=== PATIENT | female | born 1940 | race Caucasian/White ===

== ENCOUNTER 2019-11-15 09:41 | Outpatient (CLI) | payer MEDICARE, BC, SELFPAY ==
[2019-11-15 10:17] LABS: Basophils Percent Auto 0.4 % (0.2-1.2); Eosinophils Absolute Auto 0.3 K/mm3 (0-0.3); Eosinophils Percent Auto 3.7 % (0-4.4); Hematocrit 35.2 % (37.0-47.0); Hemoglobin 11.6 g/dL (12.0-15.0); Immature Granulocyte Absolute 0.03 K/mm3 (0.00-0.031); Immature Granulocyte Percent A 0.4 % (0-0.5); Lymphocytes Absolute Auto 1.01 K/mm3 (0.9-3.2); Lymphocytes Percent Auto 14.2 % (18.3-44.2); Mean Corpuscular Hemoglobin 31.4 pg (26-34); Mean Corpuscular Volume 95.4 fl (80-100); Mean Platelet Volume 10.1 fl (7.4-10.4); Monocytes Absolute Auto 0.5 K/mm3 (0.1-0.6); Monocytes Percent Auto 7.3 % (2.6-8.5); Neutrophils Absolute Auto 5.3 K/mm3 (1.3-6.7); Platelet Count Result 202 k/mm3 (150-375); Red Blood Count 3.69 M/mm3 (4.2-5.4); Red Cell Distribution Width 13.3 % (11.5-14.5); White Blood Count 7.1 K/mm3 (4.5-10.0)
[2019-11-15 10:28] LABS: Hemoglobin A1C 5.8 % (<5.7)
[2019-11-15 10:31] LABS: Blood Urea Nitrogen 23 mg/dL (7-17); Calcium 9.2 mg/dL (8.4-10.2); Carbon Dioxide 30 mmol/L (22-30); Chloride 94 mmol/L (98-107); Cholesterol 93 mg/dL (0-200); Estimated Glomerular Filt Rate 36; Glucose 84 mg/dL (65-105); HDL Direct 38 mg/dL; Potassium 4.4 mmol/L (3.4-5.0); Sodium 137 mmol/L (137-145); Triglycerides 166 mg/dL (<150)
[2019-11-15 10:42] LABS: LDL Cholesterol Direct 35 mg/dL
[2019-11-15 11:31] LABS: Free T4 Free Thyroxine 1.43 ng/mL (0.78-2.19)
== END 2019-11-15 09:42 | disposition home or self-care (01) ==
PROVIDERS: PCP Internal Medicine; Visit Provider Internal Medicine
DX: I10 Essential (primary) hypertension (principal); E11.9 Type 2 diabetes mellitus without complications; E78.2 Mixed hyperlipidemia; E03.9 Hypothyroidism, unspecified
CPT/HCPCS: 36415; 80048; 80061; 82542; 83036; 84439; 84443; 85025

== ENCOUNTER 2019-11-24 12:14 | Outpatient (CLI) | payer MEDICARE, BC, SELFPAY ==
--- NOTE | ~2019-11-24 | XR_ITS ---
EXAMINATION: XR thoracic spine 3V EXAM DATE: 11/24/2019 13:17 INDICATION: Mid thoracic pain. TECHNIQUE: Frontal and lateral projections of the thoracic spine as well as lateral swimmers projecti on of the upper thoracic spine for interpretation. There is no prior study for comparison. FINDINGS: There is mild thoracolumbar scoliosis. There are moderate to large mid and lower thoracic bridging endplate osteophytes. Mild loss of multiple thoracic vertebral body heights, can't exclude a cute component to one of these compression fractures. Advanced upper lumbar disc disease. Overall mod erate thoracic disc disease. Paraspinal soft tissue is unremarkable. IMPRESSION: Moderate thoracic spondylosis, osteophytes. Multiple mild compression fractures. Reviewed, dictated and finalized at location B. M AND GAS TURBINE ASSEMBLER IMPRESSION: Moderate thoracic spondylosis, osteophytes. Multiple mild compress ion fractures.
--- NOTE | ~2019-11-24 | XR_ITS ---
EXAMINATION: XR pelvis 1-2V DATE: 11/24/2019 13:17 INDICATION: Low back pain. TECHNIQUE: An anteroposterior view of the pelvis was obtained on 2 radiographs. COMPARISON: CT abdomen and pelvis 10/04/2016 FINDINGS: Bone alignment is normal. No acute fracture. There is an old healed fracture of proximal le ft femur with internal fixation with intramedullary neelima and femoral head/neck screw. There is moderat e lower lumbar spondylosis. There is mild osteoarthritis of the hips. IMPRESSION: 1. Mild osteoarthritis of the hips. Reviewed, dictated and finalized at location A. ER LAYER
--- NOTE | ~2019-11-24 | XR_ITS ---
EXAMINATION: XR lumbar spine min 4V EXAM DATE: 11/24/2019 13:16 INDICATION: Low back pain. TECHNIQUE: Lumber spine frontal, lateral, bilateral oblique projections. Coned down frontal and lat eral L5-S1 lumbar projections for interpretation. There is no prior study for comparison. FINDINGS: There is about 6 mm retrolisthesis L1 on L2, 4 mm retrolisthesis L2 on L3, 5 mm anterolisth esis L4 on L5. There is moderate to severe loss of the L1-2 disc height, moderate at L4-5, mild to mo derate at the other lumbar levels. There is no spondylolysis suspected. Mild chronic appearing compre ssion fractures of T12 and L1. There is advanced lumbar facet arthropathy. IMPRESSION: 1. Subluxations, advanced facet arthropathy and disc disease as above. Reviewed, dictated and finalized at location B. CTOR FINANCIAL SYSTEMS
--- NOTE | ~2019-11-24 | US_ITS ---
EXAMINATION: US renal BI EXAM DATE: 11/24/2019 13:13 INDICATION: Abnormal blood chemistry. TECHNIQUE: Multiple grayscale and Doppler images of the kidneys were obtained (by a technologist who performed the scan) and subsequently reviewed. There is no prior study for comparison. FINDINGS: Right kidney: There is normal contour and echogenicity. It measures 10.1 x 5.0 x 5.4 centimeters. Th ere are 2 anechoic lesions with increased through transmission consistent with cysts, measuring up to 1.8 cm. There is no hydronephrosis. Left kidney: There is normal contour and echogenicity. It measures 12.3 x 6.0 x 7.2 centimeters. Th ere are no focal renal lesions identified. There is no hydronephrosis. Bladder contracted, not evaluated. IMPRESSION: Small right renal cysts. Reviewed, dictated and finalized at location B. MACHINE TENDER IMPRESSION: Small right renal cysts.
--- NOTE | ~2019-11-24 | XR_ITS ---
EXAMINATION: XR sacroiliac joints min 3V EXAM DATE: 11/24/2019 13:16 INDICATION: Sacroiliac pain. Pelvic pain. TECHNIQUE: Sacroiliac frontal and bilateral oblique projections. There is no prior study for compar aleksandra. FINDINGS: There is mild bilateral sacroiliac joint primary osteoarthritis. Sacrum, sacroiliac joints , sacral arcuate lines are intact. There are no acute fractures identified. Left hip gamma nail. IMPRESSION: 1. Mild bilateral sacroiliac joint osteoarthritis. Reviewed, dictated and finalized at location B. EILLANCE SYSTEMS ANALYST
== END 2019-11-24 12:15 | disposition home or self-care (01) ==
PROVIDERS: PCP Internal Medicine; Visit Provider Internal Medicine
DX: R79.89 Other specified abnormal findings of blood chemistry (principal); M47.894 Other spondylosis, thoracic region; M16.0 Bilateral primary osteoarthritis of hip; N28.1 Cyst of kidney, acquired
CPT/HCPCS: 72072; 72110; 72170; 72202; 76775

== ENCOUNTER 2019-11-28 11:39 | Outpatient (CLI) | payer MEDICARE, BC, SELFPAY ==
--- NOTE | ~2019-11-28 | XR_ITS ---
EXAMINATION: XR chest 2V DATE: 11/28/2019 12:06 INDICATION: Cough and shortness of breath. TECHNIQUE: Frontal and lateral views of the chest were obtained. COMPARISON: Chest 2 views 10/14/2016, CT abdomen and pelvis 10/14/2016 FINDINGS: There are airspace opacities in right lower lung zone. No pleural effusion or pneumothorax. The heart size is normal. There are prominent paracardial fat pads. IMPRESSION: 1. Airspace opacities in right lower lung zone, consistent with atelectasis versus pneumonia. Reviewed, dictated and finalized at location A. R AND EVAPORATOR OPERATOR IMPRESSION: 1. Airspace opacities in right lower lung zone, consistent with atelectasis trae rimma pneumonia.
== END 2019-11-28 11:40 | disposition home or self-care (01) ==
LOC: ANHIMG 11:50
PROVIDERS: PCP Internal Medicine; Visit Provider Internal Medicine
DX: R05 Cough (principal); R91.8 Other nonspecific abnormal finding of lung field
CPT/HCPCS: 71046

== ENCOUNTER 2019-12-01 13:57 | Inpatient (IN) | payer MEDICARE, BC, SELFPAY ==
--- NOTE | ~2019-12-01 | XR_ITS ---
XR abdomen/kub 1V 12/18/2019 06:10 Indication: Small bowel obstruction Procedure: KUB Comparison: Comparison to multiple prior studies sequentially, with oldest reviewed study dated 12/14. Findings: There is an NG tube in the stomach. There is a rectal catheter with decompression of the co mikhail. Residual contrast noted in the distal colon and rectum. No significant small bowel dilation. Mod erate degenerative changes of the spine. Left lower lobe airspace disease. Impression: 1: Nonobstructive bowel gas pattern. 2: Left lower lobe airspace disease, atelectasis versus pneumonia. Reviewed, dictated and finalized at location A. Impression: 1: Nonobstructive bowel gas pattern. 2: Left lower lobe airspace disease, atelectasis versus pneumonia.
--- NOTE | ~2019-12-01 | XR_ITS ---
EXAMINATION: XR chest PICC line DATE: 12/06/2019 11:42 INDICATION: Central line placement. TECHNIQUE: A single frontal view of the chest was obtained. COMPARISON: Chest single view 12/05/2019, CT abdomen and pelvis 12/03/2019 FINDINGS: There is mild atelectasis at the lung bases, left worse than right. No pleural effusion or pneumothorax. The heart size is normal. There is a prominent left paracardial fat pad. The nasogastri c tube tip is beyond the inferior margin of the radiograph, but at least to the stomach. A left upper extremity peripherally inserted central venous catheter (PICC) is seen with tip in the superior vena cava. IMPRESSION: 1. PICC tip in the superior vena cava. 2. Mild atelectasis at the lung bases, left worse than right with worsening on the left. Reviewed, dictated and finalized at location A.
--- NOTE | ~2019-12-01 | XR_ITS ---
EXAMINATION: XR abdomen/kub 1V INDICATION: Colonic tube placement TECHNIQUE: Supine view of the abdomen is obtained on three radiographs. COMPARISON: 0930 hours FINDINGS: A colonic tube appears to enter the rectum and courses into the sigmoid and descending colo n, appearing to end in the distal transverse colon. Colonic distention persists but has slightly decr eased. Left hip stabilization is noted. There is severe lumbar spondylosis. IMPRESSION: 1. Persistent but decreased colonic distention post colonic tissue placement. Reviewed, dictated and finalized at location B.
--- NOTE | ~2019-12-01 | XR_ITS ---
XR chest 1V portable 12/17/2019 06:27 Indication: Hypercapnic respiratory failure Procedure: AP portable chest Comparison: Comparison to multiple prior studies sequentially, with oldest reviewed study dated 12/11. Findings: NG tube in the stomach. Left subclavian PICC line tip in the SVC. Cardiomegaly. Mild inters titial edema. Small left pleural effusion. No pneumothorax. Advanced degenerative changes of the shou lders. Atherosclerosis. Impression: 1: Cardiomegaly with interstitial edema. 2: Small left pleural effusion. Reviewed, dictated and finalized at location A. Impression: 1: Cardiomegaly with interstitial edema. 2: Small left pleural effusion.
--- NOTE | ~2019-12-01 | XR_ITS ---
EXAMINATION: XR chest 1V portable DATE: 12/19/2019 05:34 INDICATION: Hypercapnic respiratory failure TECHNIQUE: frontal view of the chest was obtained. COMPARISON: Chest radiograph dated 12/18/2019 FINDINGS: Nasogastric tube in stomach. Left upper extremity peripherally inserted central venous catheter (PICC ) tip at the superior vena cava. Persistent opacities in the left lower lung zone including small left pleural effusion. Right lung re jae clear. No pneumothorax, pulmonary edema or right-sided pleural effusion. The cardiomediastinal silhouette is normal mild leftward rotation. Moderate to severe degenerative skeletal changes in the spine and both shoulders. IMPRESSION: 1. Persistent opacities in the left lower lung zone consistent with small left pleural effusion and a ssociated atelectasis and/or pneumonia. Reviewed, dictated and finalized at location A. IMPRESSION: 1. Persistent opacities in the left lower lung zone consistent with small left pleural effusion and associated atelectasis and/or pneumonia.
--- NOTE | ~2019-12-01 | XR_ITS ---
EXAMINATION: XR chest 1V portable EXAM DATE: 12/16/2019 05:25 INDICATION: Respiratory failure. TECHNIQUE: Portable AP frontal chest x-ray was obtained. Comparison is made to prior examination from 12/15/2019. FINDINGS: There is a nasogastric tube seen with tip collimated off the study, but below the left kwaku diaphragm. There is small sized left pleural effusion, with adjacent airspace disease at least partly subsegment al atelectasis. Retrocardiac pneumonia also possible. There is mild cardiomegaly and pulmonary vascul ar congestion. No pneumothorax. There are bony degenerative changes, advanced bilateral shoulder oste oarthritis. There is aortic arterial sclerosis. Possible interval improvement in the left pleural eff usion compared to prior study. There is improving congestive changes. IMPRESSION: 1. Small left effusion, basilar subsegmental atelectasis. Pneumonia not excludable. 2. Improving congestive changes. Reviewed, dictated and finalized at location A. IMPRESSION: 1. Small left effusion, basilar subsegmental atelectasis. Pneumonia not exclud able. 2. Improving congestive changes.
--- NOTE | ~2019-12-01 | XR_ITS ---
EXAMINATION: XR small bowel follow through EXAM DATE: 12/05/2019 22:28 INDICATION: Small bowel obstruction. TECHNIQUE: Electrician Station Assistant radiograph was acquired. Small bowel series was performed with water-soluble solut ion. A total of 0.0 minutes fluoroscopy time was used. There are 9 KUB images. FINDINGS: Images demonstrate severely distended jejunum, several loops of which opacify over the firs t 3 hours of imaging, but no further progression on 4 and 6 hour images. Some moderate amount of cont rast remaining in stomach on the 6 hour image. IMPRESSION: Small bowel obstruction. Consider KUB in the morning. Reviewed, dictated and finalized at location A.
--- NOTE | ~2019-12-01 | XR_ITS ---
EXAMINATION: XR abdomen obstructive series EXAM DATE: 12/02/2019 16:46 INDICATION: Abnormal bowel sounds, abdominal distention. TECHNIQUE: Frontal upright projection of the upper abdomen, frontal projection of the lower abdomen f or interpretation. Comparison is made to prior examination from 10/15/2016. FINDINGS: There is severely distended viscus loop overlying the abdomen, with a similar appearance on prior study, and correlating to prior CT this is the cecum and transverse colon. No free intraperito darren air. Probably colonic ileus given prior imaging. Lung bases are unremarkable. No small bowel dil ation. Left hip replacement. There is no organomegaly. IMPRESSION: Severely distended cecum, moderately distended transverse colon with gas, probably colon ic ileus correlating with prior imaging. Reviewed, dictated and finalized at location A. RECOVERER IMPRESSION: Severely distended cecum, moderately distended transverse colon wi th gas, probably colonic ileus correlating with prior imaging.
--- NOTE | ~2019-12-01 | NM_ITS ---
NM lung vent and perfusion INDICATION: Hypoxia. Dyspnea. TECHNIQUE: The patient inhaled aerosolized 13.5 mCi xenon-133. Following ventilation scan, 5.1 mCi T c 99m MAA was injected intravenously for perfusion images. Multiple images were then acquired. COMPARISON: Chest x-ray dated 12/08/2019 FINDINGS: The comparison chest radiograph demonstrates prominent left cardiophrenic angle fat pad. Sm all right pleural effusion. Bibasilar atelectasis. There are matched defects in the left lower lobe. No ventilation/perfusion mismatches are identified. There is mild retention of radiotracer in both wong ngs. IMPRESSION: 1: Low probability for pulmonary embolism.. Reviewed, dictated and finalized at location A.
--- NOTE | ~2019-12-01 | XR_ITS ---
EXAMINATION: XR sm bowel follow through WS EXAM DATE: 12/12/2019 11:39 INDICATION: Dilated small bowel. TECHNIQUE: Mosaic Layer radiograph was acquired. Small bowel series was performed with water-soluble contr ast solution. Spot images of the terminal ileum were acquired. Fluoroscopy time of 0.0 minutes with 6 KUB images obtained. Comparison is made to prior examination from 12/05/2019. FINDINGS: Previous examination demonstrated only proximal jejunal contrast on a 6 hour image. On this examination, 30 minute image mild to moderately distended jejunal loops, but with interval improveme nt compared to previous examination. On the 1 1/2 hour image, contrast has continued to flow into nor mal calibered ileum. On the 2 1/2 hour images contrast is within the ascending colon. Transit time ab out 2 hours. Feeding tube is in position. There is left hip arthroplasty. Severely distended air-fill ed colon. IMPRESSION: 1. Mild to moderately distended jejunum with normal transit time of 2 hours. 2. Severely distended gas and fluid-filled colon. Consider ileus. Reviewed, dictated and finalized at location A.
--- NOTE | ~2019-12-01 | XR_ITS ---
XR abdomen/kub 1V 12/19/2019 09:44 Indication: Small bowel obstruction follow-up Procedure: KUB Comparison: Comparison to multiple prior studies sequentially, with oldest reviewed study dated 12/14. Findings: Rectal tube position unchanged allowing for technique. There is moderate gas in the small b owel and colon, likely ileus. There is persistent left lower lobe airspace disease. No abnormal calci fications. Moderate thoracic and lumbar spondylosis. Impression: 1: Moderate gas in the small bowel and colon, likely ileus. Stable position to rectal tube. 2: Left lower lobe airspace disease, atelectasis versus pneumonia. Reviewed, dictated and finalized at location A. Impression: 1: Moderate gas in the small bowel and colon, likely ileus. Stable position to rectal tube. 2: Left lower lobe airspace disease, atelectasis versus pneumonia.
--- NOTE | ~2019-12-01 | XR_ITS ---
EXAMINATION: XR abdomen obstructive series EXAM DATE: 12/15/2019 05:55 INDICATION: Marielle syndrome. TECHNIQUE: Frontal upright projection of the upper abdomen, frontal projection of the lower abdomen f or interpretation. Comparison is made to prior examination from 12/14/2019. FINDINGS: No evidence of free intraperitoneal gas. No change in the severely distended colon, modera tely distended small bowel. Some of the contrast in the colon has passed compared to prior study. The re is still substantial cecal contrast. Left hip gamma nail. Advanced thoracolumbar spondylosis. IMPRESSION: Ileocolic ileus. Reviewed, dictated and finalized at location A. IMPRESSION: Ileocolic ileus.
--- NOTE | ~2019-12-01 | XR_ITS ---
EXAMINATION: XR abdomen/kub 1V DATE: 12/20/2019 05:49 INDICATION: Small bowel obstruction TECHNIQUE: A supine view of the abdomen on 2 radiographs was obtained. COMPARISON: 12/19/2019 FINDINGS: Rectal tube in unchanged position with distal tip likely in the mid transverse colon. Small amount of residual oral contrast material at the rectum. Moderate amount of gas along the transverse colon. Sm all amount of gas within a few nondilated loops of small bowel. IMPRESSION: 1. Rectal tube in unchanged position with small amount of gas in nondilated small bowel and moderate colonic gas, most likely ileus. Reviewed, dictated and finalized at location A. IMPRESSION: 1. Rectal tube in unchanged position with small amount of gas in nondilated sma ll bowel and moderate colonic gas, most likely ileus.
--- NOTE | ~2019-12-01 | XR_ITS ---
EXAMINATION: XR abdomen/kub 1V DATE: 12/23/2019 05:56 INDICATION: Abdominal distention with small bowel obstruction TECHNIQUE: A supine view of the abdomen on 2 radiographs was obtained. COMPARISON: 12/22/2019 and 12/20/2019 FINDINGS: Diffuse gaseous distention of the colon which appears to have increased since the prior study. There are a few unchanged gas-filled but not frankly dilated loops of small bowel in the central abdomen. O ld healed proximal left femoral fracture with intramedullary neelima and dynamic femoral neck screw fixat ion. IMPRESSION: 1. Nonspecific bowel gas pattern with increasing gaseous distention of the colon and unchanged gas-fi lled but not frankly dilated small bowel which could represent an ileus. Reviewed, dictated and finalized at location A. IMPRESSION: 1. Nonspecific bowel gas pattern with increasing gaseous distention of the colo n and unchanged gas-filled but not frankly dilated small bowel which could repr esent an ileus.
--- NOTE | ~2019-12-01 | XR_ITS ---
XR abdomen NG/feed tube insert DATE: 12/08/2019 06:16 INDICATION: Nasogastric tube replacement TECHNIQUE: Portable upright AP view on 12/08/2019 at 0609 hours COMPARISON: 12/07/2019 KUB FINDINGS: A nasogastric tube extends into the lower body of the stomach, beyond the lower margin of t his radiographic examination. Prominent gaseous distention of bowel. Prominent degenerative spurring of the thoracic and lumbar spine. IMPRESSION: NG tube in stomach Reviewed, dictated and finalized at Location A. Reviewed, dictated and finalized at location A. IMPRESSION: NG tube in stomach
--- NOTE | ~2019-12-01 | XR_ITS ---
EXAMINATION: XR abdomen NG/feed tube insert EXAM DATE: 12/03/2019 17:21 INDICATION: Nasogastric tube placement. TECHNIQUE: Frontal projection(s) of the abdomen for interpretation. There is no prior study for keiko figueroa. FINDINGS: Feeding tube tip projects over left upper quadrant, side port is just above the gastroesop hageal junction, could be safely advanced 5 cm. Severely distended gas-filled colon again noted. Ther e is no organomegaly. IMPRESSION: Feeding tube tip overlies stomach but could be safely advanced 5 cm. Reviewed, dictated and finalized at location A. RNAL CONTROLS SPECIALIST IMPRESSION: Feeding tube tip overlies stomach but could be safely advanced 5 c m.
--- NOTE | ~2019-12-01 | XR_ITS ---
XR chest 1V portable 12/18/2019 06:08 Indication: Hypercapnic respiratory failure Procedure: AP portable chest Comparison: Comparison to multiple prior studies sequentially, with oldest reviewed study dated 12/13. Findings: NG tube in the stomach. PICC line tip in the SVC. Cardiomegaly. Retrocardiac airspace disea se. Small left pleural effusion. Impression: 1: Retrocardiac airspace disease may represent atelectasis and/or pneumonia. 2: Small left pleural effusion. 3: Cardiomegaly. Reviewed, dictated and finalized at location A. Impression: 1: Retrocardiac airspace disease may represent atelectasis and/or pneumonia. 2: Small left pleural effusion. 3: Cardiomegaly.
--- NOTE | ~2019-12-01 | XR_ITS ---
EXAMINATION: XR abdomen obstructive series EXAM DATE: 12/14/2019 05:56 INDICATION: Colonic ileus. TECHNIQUE: Frontal projection(s) of the abdomen for interpretation. Comparison is made to prior exami nation from 12/13/2019. FINDINGS: Previously seen ileal contrast has nearly completely passed, with contrast now throughout the colon, mostly in the cecum. Appendix is normal. Feeding tube is in position. There are bony degen erative changes. Left hip gamma nail. IMPRESSION: 1. Ileocolic ileus, with progression of orally administered contrast. Reviewed, dictated and finalized at location A.
--- NOTE | ~2019-12-01 | XR_ITS ---
EXAMINATION: XR abdomen NG/feed tube insert INDICATION: Nasogastric tube insertion. TECHNIQUE: Portable AP KUB-NG at 0931 hours COMPARISON: 0528 hours FINDINGS: Motion artifact slightly limits the examination. The nasogastric tube projects in the stoma ch. Again noted is diffuse gaseous distention of the colon. IMPRESSION: 1. Nasogastric tube in the stomach. Reviewed, dictated and finalized at location B.
--- NOTE | ~2019-12-01 | XR_ITS ---
EXAMINATION: XR chest 1V portable EXAM DATE: 12/05/2019 21:04 INDICATION: Hypoxia. TECHNIQUE: Portable AP frontal chest x-ray was obtained. Comparison is made to prior examination from 12/01/2019. FINDINGS: Feeding tube is in position. Some left basilar subsegmental atelectasis. Small left pleural effusion. No pneumothorax. There is aortic arterial sclerosis. The bones are osteopenic. There are bony degenerative changes. Cardiomediastinal silhouette is normal. Contrast within the stomach from s mall bowel exam. IMPRESSION: 1. Left basilar subsegmental atelectasis and small left pleural effusion. Reviewed, dictated and finalized at location A.
--- NOTE | ~2019-12-01 | XR_ITS ---
Gastrografin enema INDICATION: Evaluate for distal colonic obstruction TECHNIQUE: Examination of the colon utilizing water-soluble contrast technique. COMPARISON: CT dated 12/03/2019 FINDINGS: There is retrograde contrast administration. There is normal contrast opacification of the rectum, sigmoid colon and left colon extending to the splenic flexure. There is a large amount of gas in the small bowel and more proximal colon limiting retrograde flow into the proximal and mid colon. No definite strictures are identified in the left colon. IMPRESSION: 1: Limited study due to large amount of bowel gas limiting retrograde flow of contrast into the ascen ding and transverse colon. No strictures identified at the splenic flexure, descending colon or sigmo id colon. Moderate amount of retained fecal material in the left colon. Reviewed, dictated and finalized at location A. IMPRESSION: 1: Limited study due to large amount of bowel gas limiting retrograde flow of c ontrast into the ascending and transverse colon. No strictures identified at th e splenic flexure, descending colon or sigmoid colon. Moderate amount of retain ed fecal material in the left colon.
--- NOTE | ~2019-12-01 | US_ITS ---
EXAMINATION: US venous doppler LE EXAM DATE: 12/07/2019 09:32 INDICATION: Shortness of breath, edema. TECHNIQUE: Multiple grayscale, color flow and Doppler images of the lower extremity deep venous syste ms bilaterally were obtained and reviewed. Comparison is made to prior examination from 10/07/2006. FINDINGS: Right side: The right common femoral, femoral and profunda veins demonstrate normal color flow, respi ratory variation, augmentation and compressibility. Compressibility, color flow confirmed within the right popliteal, posterior tibial, peroneal, and greater saphenous veins. Left side: The left common femoral, femoral and profunda veins demonstrate normal color flow, respira tory variation, augmentation and compressibility. Compressibility, color flow confirmed within the l eft popliteal, posterior tibial, peroneal, and greater saphenous veins. IMPRESSION: No lower extremity deep venous thrombosis bilaterally. Reviewed, dictated and finalized at location B.
--- NOTE | ~2019-12-01 | XR_ITS ---
XR abdomen/kub 1V DATE: 12/09/2019 06:21 INDICATION: Ileus. TECHNIQUE: Portable supine AP views on 12/09/2019 at 6852-8601 hours COMPARISON: 12/08/2019 portable upright AP view for NG tube 12/07/2019 KUB FINDINGS: There is minimal residual contrast material in the distal sigmoid colon area. There is mild improvement of bowel gaseous distention since 12/07/2019. NG tube in the lower body of stomach. Compression screw device and nail in proximal left femur IMPRESSION: NG tube in the lower body of stomach Mild improvement of gaseous distention of the bowel since 12/07/2019 Reviewed, dictated and finalized at Location A. Reviewed, dictated and finalized at location A.
--- NOTE | ~2019-12-01 | XR_ITS ---
EXAMINATION: XR chest 2V EXAM DATE: 12/01/2019 16:08 INDICATION: Increasing shortness of breath. Diarrhea, dizziness. TECHNIQUE: Frontal and lateral projections of the chest obtained and reviewed. Comparison is made to prior examination from 11/28/2019. FINDINGS: Significant improvement in previously seen right basilar airspace disease. No pneumothorax or pleural effusion suspected. Mild hyperinflation. Left atrium appears enlarged. There is aortic art erial sclerosis. 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 IMPRESSION: 1. Improving right basilar airspace disease. Reviewed, dictated and finalized at location A. 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
--- NOTE | ~2019-12-01 | XR_ITS ---
EXAMINATION: XR abdomen/kub 1V EXAM DATE: 12/16/2019 12:36 INDICATION: Decompressed ileocolic ileus. TECHNIQUE: Frontal projection(s) of the abdomen for interpretation. Comparison is made to prior exami nation from earlier same date. FINDINGS: There is a rectal tube extending up the ascending colon and to the mid transverse colon wi th interval decrease in amount of colonic gas. There is a nasogastric tube. Some contrast in the appe ndix and dependent cecal base. Left hip replacement. Bony degenerative changes. IMPRESSION: 1. Rectal tube placement with mild improvement in distended colon. Reviewed, dictated and finalized at location A.
--- NOTE | ~2019-12-01 | XR_ITS ---
EXAMINATION: XR chest 1V portable EXAM DATE: 12/14/2019 05:56 INDICATION: Acute on chronic respiratory failure. TECHNIQUE: Portable AP frontal chest x-ray was obtained. Comparison is made to prior examination from 12/11, 12/07. FINDINGS: There is been developing left pleural effusion, now small to moderate in size with adjacent airspace disease at least partly subsegmental atelectasis. Development of congestive changes. There is cardiomegaly and pulmonary vascular congestion. No pneumothorax. There are bony degenerative connor es. IMPRESSION: 1. Development of congestive changes, cardiomegaly, small to moderate left pleural effusion. 2. Adjacent subsegmental atelectasis. Pneumonia not excludable. Reviewed, dictated and finalized at location A. IMPRESSION: 1. Development of congestive changes, cardiomegaly, small to moderate left ple ural effusion. 2. Adjacent subsegmental atelectasis. Pneumonia not excludable.
--- NOTE | ~2019-12-01 | CT_ITS ---
EXAMINATION: CT abdomen pelvis wo con DATE: 12/03/2019 13:32 INDICATION: Abdominal distention. TECHNIQUE: Computed tomography (CT) of the abdomen and pelvis was performed without intravenous contr ast. The dose-length product was 2311.22 mGy-cm. Automated exposure control and iterative reconstruct ion technique were employed. COMPARISON: CT dated 10/04/2016 FINDINGS: There is left lower lobe atelectasis/scarring. No significant pleural or pericardial effusi on. There is atherosclerosis. No evidence for aneurysm. There are dilated small bowel loops as well as the colon to the splenic flexure there is a transition in the colon in the left mid abdomen, best seen on axial image 106, suspicious for stricture. The re mainder of the colon is relatively decompressed. There are air-fluid levels throughout the small ayleen l and colon. The anterior aspect of the abdomen is not completely visualized due to the abdominal siz e. There appears to be a hernia anteriorly containing fat. There is a small amount of free fluid in t he abdomen. The proximal small bowel contiguous with the stomach is relatively decompressed. There are multiple a ir-fluid levels throughout the small bowel. There is a low-density lesion in the liver, most likely a cyst. The spleen, adrenal glands are unrema rkable. There is irregularity to both kidneys. Cannot exclude underlying mass. There is a 2 cm exophy tic right renal cyst. There are pancreatic calcifications, consistent with chronic pancreatitis. Rukhsana re lower thoracic and lumbar spondylosis. There is a left hip arthroplasty. IMPRESSION: 1. Dilated small bowel loops with air-fluid levels. No definitive transition point identified. Dilate d colon to the left mid abdomen with transition. Findings suspicious for obstruction, possibly involv ing small bowel and colon. No evidence for bowel perforation. Small amount of free fluid in the abdom en and pelvis. 2: Umbilical hernia containing fat and fluid. 3: Irregularity to both kidney margins. Cannot exclude underlying solid mass. 4: Chronic pancreatitis. 5: Left lower lobe atelectasis/scarring. Reviewed, dictated and finalized at location A. H FIXER IMPRESSION: 1. Dilated small bowel loops with air-fluid levels. No definitive transition po int identified. Dilated colon to the left mid abdomen with transition. Findings suspicious for obstruction, possibly involving small bowel and colon. No evide nce for bowel perforation. Small amount of free fluid in the abdomen and pelvis . 2: Umbilical hernia containing fat and fluid. 3: Irregularity to both kidney margins. Cannot exclude underlying solid mass. 4: Chronic pancreatitis. 5: Left lower lobe atelectasis/scarring.
--- NOTE | ~2019-12-01 | XR_ITS ---
XR chest 1V portable DATE: 12/12/2019 14:48 INDICATION: Shortness of breath TECHNIQUE: Portable AP chest on 12/12/2019 at 1447 hours COMPARISON: 12/08/2019 portable AP chest 12/08/2019 CT chest FINDINGS: Left hip recommend repeat catheter tip overlies superior vena cava. NG tube in stomach. There is mild infiltrate or atelectasis in the mid and primarily lower lung zones. Prominent left cardiophrenic fat pad documented by CT examination. Cardiomegaly. Aortic calcification. No apparent pleural effusion. Pulmonary vascularity is borderline prominent with possible redistribution which may indicate mild pulmonary venous hypertension. IMPRESSION: Bilateral primarily lower lung infiltrate and/atelectasis Cardiomegaly, pulmonary vascular redistribution, which may indicate mild congestive changes NG tube in stomach Left upper extremity PIC catheter in superior vena cava Reviewed, dictated and finalized at location B. IMPRESSION: Bilateral primarily lower lung infiltrate and/atelectasis Cardiomegaly, pulmonary vascular redistribution, which may indicate mild conges tive changes NG tube in stomach Left upper extremity PIC catheter in superior vena cava
--- NOTE | ~2019-12-01 | XR_ITS ---
XR abdomen/kub 1V 12/06/2019 06:01 Indication: Small bowel obstruction Procedure: KUB Comparison: Small bowel follow-through study dated 12/05/2019 Findings: There is an NG tube in the stomach. There is residual contrast in the stomach and proximal and mid small bowel which is dilated measuring up to 5.4 cm. No significant contrast has passed into the distal small bowel or colon. No abnormal calcifications. There are postoperative changes in the l eft hip. There is left lower lobe atelectasis. Small left effusion. Impression: 1: High-grade small bowel obstruction. 2: Left basilar atelectasis. Small left effusion. Reviewed, dictated and finalized at location A. Impression: 1: High-grade small bowel obstruction. 2: Left basilar atelectasis. Small left effusion.
--- NOTE | ~2019-12-01 | XR_ITS ---
XR abdomen obstructive series 12/04/2019 05:45 Indication: Colonic ileus Procedure: Supine and upright views of the abdomen Comparison: Comparison to multiple prior studies sequentially, with oldest reviewed study dated 10/15. Findings: There is chronic dilation of small bowel and colon. NG tube in the stomach. No free air fidel ntified. There is left basilar atelectasis. Small left pleural effusion. There is a dynamic compressi on screw of the left femoral neck. Impression: 1: Stable dilated small bowel and colon, ileus versus colonic obstruction. Reviewed, dictated and finalized at location A. Impression: 1: Stable dilated small bowel and colon, ileus versus colonic obstruction.
--- NOTE | ~2019-12-01 | XR_ITS ---
EXAMINATION: XR abdomen NG/feed tube rechec EXAM DATE: 12/03/2019 17:53 INDICATION: Feeding tube advancement. TECHNIQUE: Frontal projection(s) of the abdomen for interpretation. Comparison is made to prior exami nation from earlier same date. FINDINGS: Feeding tube has been advanced, tip and side-port project over gastric cardial region, jensen quate. Distended air-filled colon and small bowel. Correlate with recent CT report. There are bony de generative changes. IMPRESSION: Feeding tube in position. Reviewed, dictated and finalized at location A. [employer] CHANGE [employer]ERKS IMPRESSION: Feeding tube in position.
--- NOTE | ~2019-12-01 | XR_ITS ---
XR chest 1V portable DATE: 12/08/2019 07:28 INDICATION: Recent pneumonia. COPD. TECHNIQUE: Portable upright AP chest on 12/08/2019 at 0726 hours COMPARISON: 12/06/2019 portable AP chest FINDINGS: A nasogastric tube is noted in the stomach. Left upper extremity PIC catheter tip overlies the superior vena cava. Heart size appears within upper limits of normal. There is aortic calcification. Mild leftward shift of the heart mediastinum, mild loss of the left lung compared to the right. There is mild infiltrate or atelectasis at the lung bases, left greater than right and mild blunting of th e costophrenic angles, also greater on the left. No pulmonary vascular congestion or pneumothorax. Diffuse osteopenia. There is mild dextroscoliosis and prominent degenerative spurring of the thoracic spine. There is sev ere osteoarthritic change at both glenohumeral joints. IMPRESSION: Little interval change since 12/06/2019 Reviewed, dictated and finalized at location A.
--- NOTE | ~2019-12-01 | XR_ITS ---
XR abdomen/kub 1V 12/05/2019 05:52 Indication: Small bowel obstruction Procedure: AP portable supine view of the abdomen Comparison: 12/03/2019 Findings: There are dilated small bowel loops measuring up to 5.5 cm. The colon is relatively decompr essed compared with prior examinations. NG tube in the stomach. There is residual contrast in the col on. No definite pneumatosis or free air identified. Impression: 1: Dilated small bowel with partial interval decompression of the colon, suspicious for small bowel o bstruction. Reviewed, dictated and finalized at location A. Impression: 1: Dilated small bowel with partial interval decompression of the colon, suspic ious for small bowel obstruction.
--- NOTE | ~2019-12-01 | XR_ITS ---
XR abdomen/kub 1V DATE: 12/07/2019 05:51 INDICATION: Small bowel obstruction TECHNIQUE: Portable supine AP views of the abdomen on 12/07/2019 at 8151-4117 hours COMPARISON: 12/06/2019 KUB FINDINGS: There is mild residual amount radiopaque oral contrast material in the distal colon. Promin ent gas distended bowel segments are still noted. An NG tube is present within the stomach. Compression screw and nail are noted in the proximal left femur. Diffuse osteopenia. IMPRESSION: NG tube in stomach Persistent bowel dilatation suggesting continued obstruction Reviewed, dictated and finalized at Location A. Reviewed, dictated and finalized at location A.
--- NOTE | ~2019-12-01 | XR_ITS ---
EXAMINATION: XR abdomen/kub 1V EXAM DATE: 12/13/2019 07:24 INDICATION: Ileus. Compared to prior study. TECHNIQUE: Frontal projection(s) of the abdomen for interpretation. Comparison is made to prior exami nation from 12/12/2019. FINDINGS: There is contrast within moderately distended ileum and the cecum, more contrast in the cec um than on yesterday. There is severe gaseous distention of the colon, probably with air-fluid levels . No contrast extravasation. Feeding tube is in position. There is lumbar spondylosis. IMPRESSION: Ileocolic dilation, orally administered contrast, ileus. Reviewed, dictated and finalized at location A.
--- NOTE | ~2019-12-01 | XR_ITS ---
EXAMINATION: XR chest 1V portable EXAM DATE: 12/15/2019 05:54 INDICATION: Hypercapnic respiratory failure. TECHNIQUE: Portable AP frontal chest x-ray was obtained. Comparison is made to prior examination from 12/14/2019. FINDINGS: There is a nasogastric tube seen with tip collimated off the study, but below the left kwaku diaphragm. There is small to moderate-sized left pleural effusion, with adjacent airspace disease at least partl y subsegmental atelectasis. There is mild cardiomegaly and pulmonary vascular congestion. No pneumot horax. There are bony degenerative changes, advanced bilateral shoulder osteoarthritis. There is aort ic arterial sclerosis. Possible interval improvement in the left pleural effusion compared to prior s tudy, or fluid could be subpulmonic in position on this image. IMPRESSION: 1. Congestive changes, cardiomegaly, small to moderate left pleural effusion. 2. Adjacent subsegmental atelectasis. Pneumonia not excludable. Reviewed, dictated and finalized at location A.
--- NOTE | ~2019-12-01 | XR_ITS ---
EXAMINATION: XR abdomen/kub 1V DATE: 12/22/2019 05:41 INDICATION: Abdominal distention TECHNIQUE: A supine view of the abdomen on 2 radiographs was obtained. COMPARISON: 12/20/2019 FINDINGS: Again seen is gaseous distention of portions of the colon and multiple gas-filled but not frankly dil ated loops of small bowel in the mid abdomen. Phleboliths in the pelvis. Antegrade intramedullary neelima and femoral neck dynamic compression screw fixation at the left femur. Severe lumbar spondylosis. IMPRESSION: 1. Nonspecific bowel gas pattern, likely ileus with no frankly dilated bowel to suggest obstruction. Reviewed, dictated and finalized at location A.
--- NOTE | ~2019-12-01 | XR_ITS ---
EXAMINATION: XR abdomen NG/feed tube insert EXAM DATE: 12/16/2019 08:18 INDICATION: Nasogastric tube position. Falcon's syndrome TECHNIQUE: Frontal projection(s) of the abdomen for interpretation. Comparison is made to prior exami nation from 12/15/2019. FINDINGS: Feeding tube is overlying expected location of stomach. No evidence of free intraperitoneal gas. No change in the severely distended colon, moderately distended small bowel. Previously identif ied colonic contrast has passed or been absorbed, no longer identified. Left hip gamma nail. Advance d thoracolumbar spondylosis. IMPRESSION: Ileocolic ileus. Feeding tube in position. Reviewed, dictated and finalized at location A.
--- NOTE | ~2019-12-01 | XR_ITS ---
XR abdomen obstructive series DATE: 12/11/2019 06:16 INDICATION: Ileus TECHNIQUE: Supine and upright portable AP views of abdomen COMPARISON: 12/09/2019 KUB 12/03/2019 CT abdomen pelvis FINDINGS: NG tube in stomach. There is prominent gaseous distention of colon and gaseous distention of multiple small bowel segment s; some small bowel segments appear dilated. No apparent intraperitoneal free air. Scoliosis and degenerative changes of the thoracic and lumbar spine. Diffuse osteopenia. Compression screw and nail in proximal left femur. IMPRESSION: Dilated gas distended small bowel segments and prominent gaseous distention of colon pers ist NG tube in stomach Reviewed, dictated and finalized at Location A. Reviewed, dictated and finalized at location A. IMPRESSION: Dilated gas distended small bowel segments and prominent gaseous di stention of colon persist NG tube in stomach
--- NOTE | ~2019-12-01 | CT_ITS ---
EXAMINATION: CT chest wo con DATE: 12/08/2019 17:07 INDICATION: Dyspnea. Shortness of breath. Hypoxia. TECHNIQUE: Computed tomography (CT) of the chest was performed without intravenous contrast. The dose -length product was 872.35 mGy-cm. Automated exposure control and iterative reconstruction technique were employed. COMPARISON: CT dated 05/20/2013 FINDINGS: There is an NG tube in the stomach. Heart size normal. No thoracic lymphadenopathy. There i s atherosclerosis. Small right pleural effusion. Study limited by motion artifact. There is a pleural-based left lower lobe nodule, superior segment measuring 0.9 x 0.5 x 1.6 cm which may represent atelectasis/scarring, although malignancy is not excluded. There is dependent atelectas is. There is a central line, tip in the SVC. There is lower lobe atelectasis/scarring. There is sever e osteoarthritis of the shoulders there is dextroscoliosis. There is moderate-severe thoracic spondyl osis. There is a stable 2.2 cm hypodense mass of the right hepatic lobe, most likely benign cysts. Th ere is a 2.3 cm right renal mass at the upper pole, slightly increased in size compared with prior ex amination measuring 25 Hounsfield units, not compatible with a simple cyst. Recommend correlation wit h ultrasound. No pneumothorax. IMPRESSION: 1. Linear pleural-based left lower lobe nodule, superior segment measuring 1.6 x 0.9 x 0.5 cm. This m ay be infectious/inflammatory, although malignancy is not excluded. 2: Small right pleural effusion. 3: Bibasilar atelectasis/scarring. 4: 2.3 cm right renal mass at the upper pole, slightly increased in size compared with prior examina tion measuring 25 Hounsfield units, not compatible with a simple cyst. Recommend correlation with ult rasound on a nonemergent basis. Reviewed, dictated and finalized at location A. IMPRESSION: 1. Linear pleural-based left lower lobe nodule, superior segment measuring 1.6 x 0.9 x 0.5 cm. This may be infectious/inflammatory, although malignancy is not excluded. 2: Small right pleural effusion. 3: Bibasilar atelectasis/scarring. 4: 2.3 cm right renal mass at the upper pole, slightly increased in size akila red with prior examination measuring 25 Hounsfield units, not compatible with a simple cyst. Recommend correlation with ultrasound on a nonemergent basis.
--- NOTE | 2019-12-01 14:25 | PC.NURSE ---
patient called for triage, patient in restroom. solutions developer moved on to next patient, will return to patient next.
[2019-12-01 14:33] VITALS: BP 146/65; PULSE 105; RESP 19; TEMP 36.8; O2SAT 97
--- NOTE | 2019-12-01 14:41 | ECG_ITS ---
Measurements Intervals [place] Rate: 99 P: 71 UT: 152 QRS: 56 QRSD: 90 T: 63 QT: 308 QTc: 396 Interpretive Statements SINUS RHYTHM BASELINE ARTIFACT- I, II, III, AVR, AVL, AVF, V1-V3 NORMAL ECG Electronically Signed On 12-01-2019 15:35:54 SOFTWARE APPLICATIONS ARCHITECT by Alvarez Gaytan D.O.
[2019-12-01 15:07] LABS: Basophils Percent Auto 0.3 % (0.2-1.2); Eosinophils Absolute Auto 0.2 K/mm3 (0-0.3); Eosinophils Percent Auto 1.8 % (0-4.4); Hematocrit 32.7 % (37.0-47.0); Hemoglobin 11.2 g/dL (12.0-15.0); Immature Granulocyte Absolute 0.29 K/mm3 (0.00-0.031); Immature Granulocyte Percent A 2.8 % (0-0.5); Lymphocytes Absolute Auto 0.73 K/mm3 (0.9-3.2); Lymphocytes Percent Auto 6.9 % (18.3-44.2); Mean Corpuscular HGB Conc 34.3 g/dl (32-36); Mean Corpuscular Hemoglobin 32.3 pg (26-34); Mean Corpuscular Volume 94.2 fl (80-100); Mean Platelet Volume 9.3 fl (7.4-10.4); Monocytes Absolute Auto 0.8 K/mm3 (0.1-0.6); Monocytes Percent Auto 7.9 % (2.6-8.5); Neutrophils Absolute Auto 8.4 K/mm3 (1.3-6.7); Neutrophils Percent Auto 80.3 % (45.5-73.1); Platelet Count Result 314 k/mm3 (150-375); Red Blood Count 3.47 M/mm3 (4.2-5.4); Red Cell Distribution Width 13.3 % (11.5-14.5); White Blood Count 10.5 K/mm3 (4.5-10.0)
[2019-12-01 15:13] LABS: Alanine Aminotransferase 18 U/L (4-35); Albumin Level 3.7 g/dL (3.5-5.1); Alkaline Phosphatase 67 U/L (38-126); Aspartate Amino Transferase 21 U/L (14-36); Bilirubin,Total 0.4 mg/dL (0.2-1.3); Blood Urea Nitrogen 35 mg/dL (7-17); Calcium 8.8 mg/dL (8.4-10.2); Carbon Dioxide 28 mmol/L (22-30); Chloride 89 mmol/L (98-107); Estimated Glomerular Filt Rate 17; Glucose 154 mg/dL (65-105); Lipase 120 U/L (23-300); Potassium 4.5 mmol/L (3.4-5.0); Sodium 126 mmol/L (137-145)
--- NOTE | 2019-12-01 15:59 | ED.NAVMDI ---
HPI - Nausea/Vomiting/Diarrhea General Chief complaint: Nausea/Vomiting/Diarrhea Stated complaint: SOB Time Seen by Provider: 12/01/19 15:56 Source: patient and RN notes reviewed Mode of arrival: other Limitations: no limitations History of Present Illness HPI Narrative: Pt is a 79 y/o female who presents to the ED with c/o severe diarrhea that began two days ago (11/29/19). She notes that she has had mucus in her diarrhea and that she cannot keep any fluids down. Pt had a chest x-ray on Thursday (11/25/19) while at her PCP's office for SOB and was dx with pneumonia. Pt was given a nebulizer for her sx. She has been on Levaquin for two weeks. She states that she is still SOB. Pt also reports a cough producing phlegm, but denies fever, abdominal pain, and blood in her stools. MD elicited complaint: diarrhea Onset (ago): day(s) (2) Description of vomiting: none Description of diarrhea: mucus Associated nausea: No Associated abdominal pain: No Location of pain: none Severity: severe Associated symptoms: cough (producing phlegm) and shortness of breath Related Data Home Medications Medication Instructions Recorded Confirmed fluticasone 500 mcg-salmeterol 50 1 inhalation INHALATION Q12H each 11/24/19 mcg/dose blistr powdr for inhalation hydrochlorothiazide 12.5 mg tablet 12.5 mg PO tablet 11/24/19 lisinopril 20 mg tablet 20 mg PO tablet 11/24/19 sitagliptin 50 mg-metformin 1,000 1 tablet PO tablet 11/24/19 mg tablet trazodone 50 mg tablet 100 mg PO tablet 11/24/19 glimepiride mg 12/01/19 Allergies Allergy/AdvReac Type Severity Reaction Status Date / Time iohexol Allergy Intermediate itchey Verified 12/01/19 18:00 throat and ears Cephalosporins Allergy Mild HIVES Verified 12/01/19 18:00 rofecoxib Allergy Mild HEADACHES Verified 12/01/19 18:00 clindamycin Allergy Unknown Unknown Verified 12/01/19 18:00 doxycycline Allergy Unknown Itching Verified 12/01/19 18:00 Penicillins Allergy Unknown Hives Verified 12/01/19 18:00 risedronate sodium Allergy Unknown eye Verified 12/01/19 18:00 inflammation Review of Systems Review of Systems: All systems reviewed & are unremarkable except as noted in HPI and below Constitutional: Constitutional: Denies fever(s) Respiratory: Respiratory: Reports chest congestion and Reports cough (producing phlegm) Gastrointestinal: Gastrointestinal: Denies abdominal pain, Denies hematochezia and Reports diarrhea PMFSH Past Medical History Medical History (Updated 12/01/19 @ 20:27 by Twin Perdue MD) Anemia Asthma Back pain Benign essential hypertension Bronchitis Cataracts, bilateral Compression fracture of thoracic spine, non-traumatic COPD (chronic obstructive pulmonary disease) Cough DM type 2 (diabetes mellitus, type 2) DVT (deep venous thrombosis) LLE Eczema Elevated serum creatinine Encounter for routine adult health examination without abnormal findings HTN (hypertension) Hx of colonic polyps Hyperlipidemia Hypothyroid Hypothyroidism (acquired) Left wrist fracture Melena 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 Pneumonia Rheumatoid arthritis Seasonal allergies Torn rotator cuff right Umbilical hernia Uterine cancer Surgical History Surgical History (Updated 12/01/19 @ 17:57 by Nola Ingram) H/O breast biopsy bilateral H/O dilation and curettage H/O total hysterectomy History of knee replacement, total right History of orthopedic surgery left hip surgery, left femur surgery Hx of cholecystectomy Hx of tonsillectomy Social History Social History Smoking status: Former smoker Second hand tobacco smoke exposure: No Smoking end date: 09/28/78 Alcohol intake: never Gender identity (if verbalized by the patient): Female Exam Narrative: Exam Narrative: hernia - lungs - tachy with regular Const: General: no acute distress, alert, ill appearing and other (elderly
[2019-12-01] MEDS: ALBUTEROL SULFATE NEB 2.5 MG/0.5 ML INH 5 MG INHALATION (16:37)
[2019-12-01 16:38] VITALS: PULSE 95; RESP 16
[2019-12-01] MEDS: SODIUM CHLORIDE 0.9% IV 1,000 ML 999 ML IV CONT (17:15)
[2019-12-01 17:30] VITALS: BP 137/72; PULSE 94; RESP 20; O2SAT 95
[2019-12-01 18:30] VITALS: BP 138/74; PULSE 97; RESP 18; O2SAT 95
[2019-12-01 18:51] LABS: Add Urine Microscopic? YES; Appearance Urine Clear (Clear); Bacteria Urine 1+ /hpf; Bilirubin Urine Negative (Negative); Blood Urine Negative (Negative); Color Urine Yellow (Yellow); Glucose Urine UA Negative (Negative); Ketones Urine Negative (Negative); Leukocyte Esterase Ur Trace LEU/UL (Negative); Mucus Urine Rare /lpf; Nitrate Urine Negative (Negative); Protein Urine 1+ mg/dL (Negative); RBC Urine 0-2 /hpf (0-2); Specific Grav Ur 1.016 (1.001-1.035); Squamous Epithelial Cell Urine Occasional /hpf (Few); Urobilinogen Urine Negative mg/dL (<2.0)
[2019-12-01 19:16] VITALS: BP 137/79; PULSE 96; RESP 18; TEMP 36.8; O2SAT 95
--- NOTE | 2019-12-01 20:21 | PC.NURSE ---
This nurse spoke with Jessie @2020 and she stated the nurse (he) would need to call me back for report.
--- NOTE | 2019-12-01 21:26 | ADMGEN ---
This patient, Cristina Bravo, was admitted to [facility] Surg Room 332-02. Patient/family oriented to hospital policies and general routines including ID bracelet, bed and alarms, visiting hours, pain management, procedures, bathroom and other care routines, personal items, smoking policy, room service/diet, and visiting hours. Valuables list has been completed. Information on how to activate the Rapid Response Team has been discussed. Patient/Family are encouraged to report perceived risks to care and to ask questions if they do not understand what they are told or what they should do.
[2019-12-01 22:00] VITALS: BP 143/75; PULSE 95; RESP 18; TEMP 36.2; O2SAT 95
[2019-12-01] MEDS: LACTATED RINGERS 1,000 ML 125 ML IV CONT (22:11)
--- NOTE | 2019-12-01 22:30 | PCRCNOTE ---
Window of time for administration has passed. See next scheduled administration.
[2019-12-02] VITALS (17 sets, daily range): BP systolic 121–155; BP diastolic 63–74; PULSE 77–100; RESP 16–20; TEMP 36.6; O2SAT 91–100; BMI 37.0
[2019-12-02] MEDS: IPRATROPIUM BR 0.02% INH SOLN 0.5 MG/2.5 ML VIAL INHALATION ×4 (03:12→21:21)
[2019-12-02] MEDS: ALBUTEROL SULFATE NEB 2.5 MG/0.5 ML INH 5 MG INHALATION ×4 (03:12→21:21)
[2019-12-02] MEDS: LACTATED RINGERS 1,000 ML 125 ML IV CONT (05:52)
[2019-12-02] MEDS: LEVOTHYROXINE SODIUM 112 MCG TABLET PO (05:52)
--- NOTE | 2019-12-02 06:25 | PM.IMHP ---
H&P: HPI History of Present Illness Chief complaint: Diarrhea Narrative: Date and time of patient contact: 12/02/2019 at 5:55 a.m. Cristina Bravo is a 79 year old female with a past medical history of hypertension, type 2 diabetes mellitus, and partial small-bowel obstruction who presented to the ER with diarrhea that started on November 29. Patient reports that she has been on antibiotic therapy starting on 11/18/2019 for a 7 day course of Levaquin followed by repeat course of Levaquin starting on 11/28/2019 due to right lower lobe pneumonia. The patient had reported cough and congestion with weathers sputum production without fever or chills during her recent office visit. She denies any orthopnea or hypoxia. The patient reports that her breathing has been stable since her doctor's visit and is not giving her much for problem. However she started having watery/mucousy/seedy stools on November 29. She has been incontinent of stools. She denies any abdominal pain with her symptoms. She has had decreased oral intake and reports that any time she has decreased oral intake she becomes more gassy and has more flatulence in his status and is distended. She came to the ER physician was concerned that she may have developed a small-bowel obstruction or ileus similar to her prior hospitalization in 2017. She denies any fevers or chills. She has not had any nausea or vomiting. She denies any dysuria or hematuria. She has been having rectal pain with passing or stools and reports that she feels as if she is passing fire. Review of Systems Review of Systems: Narrative: Except as documented in the HPI, all other systems were reviewed and are negative. [facility] Past Medical History Medical History Anemia Asthma Back pain Benign essential hypertension Bronchitis Cataracts, bilateral Compression fracture of thoracic spine, non-traumatic COPD (chronic obstructive pulmonary disease) Cough DM type 2 (diabetes mellitus, type 2) DVT (deep venous thrombosis) LLE Eczema Elevated serum creatinine Encounter for routine adult health examination without abnormal findings HTN (hypertension) Hx of colonic polyps Hyperlipidemia Hypothyroid Hypothyroidism (acquired) Left wrist fracture Melena On halfway drug therapy Pneumonia Rheumatoid arthritis Seasonal allergies Torn rotator cuff right Umbilical hernia Uterine cancer Surgical History Surgical History H/O breast biopsy bilateral H/O dilation and curettage H/O total hysterectomy History of knee replacement, total right History of orthopedic surgery left hip surgery, left femur surgery Hx of cholecystectomy Hx of tonsillectomy Family History Family History Mother Osteoporosis Father Acute myocardial infarction Social History Social History (Updated 12/02/19 @ 06:40 by Ann Kasper DO) Social History: Primary care physician: Dr. Puneet Zarate Code status: Full code Smoking packs per day: 2 Smoking cigarettes per day: 40.0 Years smoked: 5 Smoking pack-years: 10.00 Smoking status: Former smoker Second hand tobacco smoke exposure: No Smoking end date: 09/28/78 Alcohol intake: never Substance use: never Living arrangements: with family Additional living arrangements comments: The patient lives at home with her of 65 years. 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 Gender identity (if verbalized by the patient): Female Spiritual care concerns: No Agree to blood products: Yes Meds Home Medications and Allergies Home Medications Medication Instructions Recorded Confirmed Type glimepiride 2 mg tablet 2 mg PO QAM #90 tablet 09/07/19 12/01/19 Rx levothyroxine 112 mcg table
[2019-12-02 07:30] LABS: Hematocrit 31.9 % (37.0-47.0); Hemoglobin 10.5 g/dL (12.0-15.0); Mean Corpuscular HGB Conc 32.9 g/dl (32-36); Mean Corpuscular Hemoglobin 30.8 pg (26-34); Mean Corpuscular Volume 93.5 fl (80-100); Mean Platelet Volume 9.2 fl (7.4-10.4); Platelet Count Result 292 k/mm3 (150-375); Red Blood Count 3.41 M/mm3 (4.2-5.4); Red Cell Distribution Width 13.4 % (11.5-14.5)
[2019-12-02 07:40] LABS: Blood Urea Nitrogen 28 mg/dL (7-17); Calcium 8.3 mg/dL (8.4-10.2); Carbon Dioxide 27 mmol/L (22-30); Chloride 93 mmol/L (98-107); Estimated CRCL calculation 28 ml/min; Estimated Glomerular Filt Rate 27; Glucose 111 mg/dL (65-105); Potassium 3.7 mmol/L (3.4-5.0); Sodium 127 mmol/L (137-145)
[2019-12-02 08:12] LABS: Glucose Point of Care 111 (65-105)
[2019-12-02] MEDS: GLIMEPIRIDE 2 MG TABLET PO (09:41)
[2019-12-02] MEDS: metroNIDAZOLE 500 MG/ISO 100ML 500 MG/100 ML BAG 100 MG IVPB ×3 (09:41→19:12)
[2019-12-02 11:34] LABS: Glucose Point of Care 158 (65-105)
--- NOTE | 2019-12-02 14:38 | PM.IMPN ---
Progress Note: A&P Assessment and Plan (1) Diarrhea: Qualifiers: Diarrhea type: unspecified type Qualified Code(s): R19.7 - Diarrhea, unspecified <Anne Cadet PA-C - Last Filed: 12/02/19 16:21> Code(s): R19.7 - Diarrhea, unspecified <Anne Cadet PA-C - Last Filed: 12/02/19 16:21> Status: Acute <Anne Cadet PA-C - Last Filed: 12/02/19 16:21> Assessment and Plan: Patient completed 7 day course of Levaquin on 11/24/19 and started additional course of Levaquin on 11/28/2019 for suspected right lower lobe pneumonia. Diarrhea may be antibiotic associated. C. diff toxin is pending. White count mildly elevated at 11.0 but patient is afebrile and vitals stable. - Continue IV Flagyl Q6H. Initiated on 12/02/2019. - Await results of C. diff toxin - Continue banatrol per dietary recommendations - Continue to monitor CBC - Continue IV fluids at reduced rate of 75 ml/hr to replace GI losses in diarrhea - Order obstructive series abdominal X-Ray due to abnormal bowel sounds and patients concern for and past history of ileus. <Anne Cadet PA-C - Last Filed: 12/02/19 16:21> (2) Acute on chronic renal failure: Qualifiers: Acute renal failure type: unspecified Chronic kidney disease stage: stage 3 (moderate) Qualified Code(s): N17.9 - Acute kidney failure, unspecified; N18.3 - Chronic kidney disease, stage 3 (moderate) <Anne Cadet PA-C - Last Filed: 12/02/19 16:21> Code(s): N17.9 - Acute kidney failure, unspecified; N18.9 - Chronic kidney disease, unspecified <Anne Cadet PA-C - Last Filed: 12/02/19 16:21> Status: Acute <Anne Cadet PA-C - Last Filed: 12/02/19 16:21> Assessment and Plan: Likely due to volume depletion. At presentation, Creatinine was 2.7 and today decreased to 1.8 - Hold Lisinopril and HCTZ for short term as Cr stabilizes. Blood pressure is stable at 121/63. - Decrease IV fluids to 75 ml/hr - Continue to monitor renal function <Anne Cadet PA-C - Last Filed: 12/02/19 16:21> (3) Hyponatremia: Code(s): E87.1 - Hypo-osmolality and hyponatremia <LETITIA AuC - Last Filed: 12/02/19 16:21> Status: Acute <LETITIA AuC - Last Filed: 12/02/19 16:21> Assessment and Plan: Sodium at 127, low from dehydration due to GI losses. - Continue IV fluid hydration at decreased rate of 75 ml/hr - Continue to monitor sodium level - Hold HCTZ <LETITIA AuC - Last Filed: 12/02/19 16:21> (4) Abnormal chest x-ray: Code(s): R93.89 - Abnormal findings on diagnostic imaging of other specified body structures <LETITIA AuC - Last Filed: 12/02/19 16:21> Status: Acute <LETITIA AuC - Last Filed: 12/02/19 16:21> Assessment and Plan: CXR on 12/01/19 revealed improvement of right bibasilar airspace disease. Prior CXR on 11/27 consistent with atelectasis vs pneumonia. Patient does continue to endorse productive cough with sputum, but remains afebrile. Levaquin was stopped on 12/01/19 due to diarrhea. - Continue scheduled nebulizer treatments - Order guaifenesin for cough <LETITIA AuC - Last Filed: 12/02/19 16:21> Subjective Date/time seen: 12/02/19 14:38 <Anne Cadet PA-C - Last Filed: 12/02/19 16:21> Interval history: Ms. Bravo is a 79 year old female with a history of CKD stage 3, COPD, non-insulin dependent diabetes, and HTN who is hospitalized with diarrhea. She reports she has been experiencing diarrhea approximately 5 days. She reports she is not able to sleep as she is constantly awoken by episodes of diarrhea. This is associated with rectal burning which is bothersome to her. She denies abdominal pain or cramping but does report she can hear her stomach gurgling. She is unable to distinguish whether she is passing gas. She al
[2019-12-02 17:56] LABS: Glucose Point of Care 119 (65-105)
[2019-12-02] MEDS: LACTATED RINGERS 1,000 ML 75 ML IV CONT (18:02)
[2019-12-02 21:05] LABS: Glucose Point of Care 133 (65-105)
[2019-12-03] VITALS (18 sets, daily range): BP systolic 123–178; BP diastolic 68–88; PULSE 89–116; RESP 18–20; TEMP 36.3–36.6; O2SAT 90–96
[2019-12-03] MEDS: metroNIDAZOLE 500 MG/ISO 100ML 500 MG/100 ML BAG 100 MG IVPB ×4 (00:15→20:00)
[2019-12-03 01:12] LABS: Glucose Point of Care 83 (65-105)
[2019-12-03] MEDS: IPRATROPIUM BR 0.02% INH SOLN 0.5 MG/2.5 ML VIAL INHALATION ×4 (01:58→20:44)
[2019-12-03] MEDS: ALBUTEROL SULFATE NEB 2.5 MG/0.5 ML INH 5 MG INHALATION ×4 (01:58→20:44)
[2019-12-03] MEDS: LEVOTHYROXINE SODIUM 112 MCG TABLET PO (06:10)
[2019-12-03 06:32] LABS: Basophils Percent Auto 0.2 % (0.2-1.2); Eosinophils Absolute Auto 0.1 K/mm3 (0-0.3); Eosinophils Percent Auto 0.9 % (0-4.4); Hematocrit 33.2 % (37.0-47.0); Immature Granulocyte Absolute 0.16 K/mm3 (0.00-0.031); Immature Granulocyte Percent A 1.2 % (0-0.5); Lymphocytes Percent Auto 3.9 % (18.3-44.2); Mean Corpuscular HGB Conc 33.1 g/dl (32-36); Mean Corpuscular Hemoglobin 30.7 pg (26-34); Mean Corpuscular Volume 92.7 fl (80-100); Monocytes Percent Auto 7.9 % (2.6-8.5); Neutrophils Absolute Auto 11.1 K/mm3 (1.3-6.7); Neutrophils Percent Auto 85.9 % (45.5-73.1); Platelet Count Result 304 k/mm3 (150-375); Red Blood Count 3.58 M/mm3 (4.2-5.4); Red Cell Distribution Width 13.3 % (11.5-14.5); White Blood Count 12.9 K/mm3 (4.5-10.0)
[2019-12-03 06:49] LABS: Alanine Aminotransferase 19 U/L (4-35); Albumin Level 3.3 g/dL (3.5-5.1); Alkaline Phosphatase 64 U/L (38-126); Aspartate Amino Transferase 26 U/L (14-36); Bilirubin,Total 0.4 mg/dL (0.2-1.3); Blood Urea Nitrogen 19 mg/dL (7-17); Calcium 8.7 mg/dL (8.4-10.2); Carbon Dioxide 28 mmol/L (22-30); Chloride 93 mmol/L (98-107); Estimated CRCL calculation 38 ml/min; Estimated Glomerular Filt Rate 40; Glucose 135 mg/dL (65-105); Potassium 3.3 mmol/L (3.4-5.0); Sodium 127 mmol/L (137-145)
[2019-12-03 07:25] LABS: Platelet Estimate Adequate (Adequate)
[2019-12-03 07:26] LABS: Ovalocytes 1+ (NORMAL); Poikilocytosis 1+ (NORMAL)
[2019-12-03 08:00] LABS: Glucose Point of Care 136 (65-105)
[2019-12-03] MEDS: SODIUM CHLORIDE 0.9% IV 1,000 ML 75 ML IV CONT (09:32)
[2019-12-03] MEDS: POTASSIUM CHLORIDE 20 MEQ TABLET 40 MEQ PO (09:32)
--- NOTE | 2019-12-03 12:46 | PM.IMPN ---
Progress Note: A&P Assessment and Plan (1) Diarrhea: Qualifiers: Diarrhea type: unspecified type Qualified Code(s): R19.7 - Diarrhea, unspecified <Anne JLETITIA SaavedraC - Last Filed: 12/03/19 16:27> Code(s): R19.7 - Diarrhea, unspecified <LETITIA AuC - Last Filed: 12/03/19 16:27> Status: Acute <Anne Miller EDWIN Cadet-C - Last Filed: 12/03/19 16:27> Assessment and Plan: Patient completed 7 day course of Levaquin on 11/24/19 and additional course of Levaquin from 11/28/19-12/01/19 for suspected right lower lobe pneumonia. Levaquin stopped at admission on 11/30. Patient experiencing liquid brown stools which may be antibiotic associated. C. diff toxin is pending. White count elevated at 12.9 but patient is afebrile and vitals stable. - Initiate PO Vancomycin for 10 days - Continue IV Flagyl Q6H. Initiated on 12/02/2019. - Await results of C. diff toxin. Documentation suggested specimen was sent on 12/01/19 but lab confirms no sample received. Updated orders for stool collection. - Initiate probiotic - Continue banatrol per dietary recommendations - Continue to monitor leukocytosis - Continue IV fluids at 75 ml/hr to replace GI losses in diarrhea <LETITIA AuC - Last Filed: 12/03/19 16:27> (2) Abdominal distension: Code(s): R14.0 - Abdominal distension (gaseous) <LETITIA AuC - Last Filed: 12/03/19 16:27> Status: Acute <EDWIN Au-C - Last Filed: 12/03/19 16:27> Assessment and Plan: Patient has severely distended abdomen with high pitched hyperactive bowel sounds. Obstructive series abdominal XR reveals severely distended cecum, moderately distended transverse colon with gas, probably colonic ileus. - Discuss case with bank sales and service manager Dr. Fitzpatrick who recommends clear liquid diet and repeat imaging. - Order CT abdomen due to severe distention <LETITIA AuC - Last Filed: 12/03/19 16:27> (3) Acute on chronic renal failure: Qualifiers: Acute renal failure type: unspecified Chronic kidney disease stage: stage 3 (moderate) Qualified Code(s): N17.9 - Acute kidney failure, unspecified; N18.3 - Chronic kidney disease, stage 3 (moderate) <Anne Cadet PA-C - Last Filed: 12/03/19 16:27> Code(s): N17.9 - Acute kidney failure, unspecified; N18.9 - Chronic kidney disease, unspecified <Anne Cadet, PA-C - Last Filed: 12/03/19 16:27> Status: Acute <Anne Cadet, PA-C - Last Filed: 12/03/19 16:27> Assessment and Plan: Likely pre-renal due to volume depletion. At presentation, Creatinine was 2.7 and today decreased to 1.3 - Hold Lisinopril and HCTZ for short term as Cr stabilizes. Blood pressure is stable at 151/78. - Continue to monitor renal function <Anne Cadet, PA-C - Last Filed: 12/03/19 16:27> (4) Hyponatremia: Code(s): E87.1 - Hypo-osmolality and hyponatremia <Anne Cadet, PA-C - Last Filed: 12/03/19 16:27> Status: Acute <Anne Cadet, PA-C - Last Filed: 12/03/19 16:27> Assessment and Plan: Sodium at 127, low from dehydration due to GI losses. - Order Urine sodium and urine creatinine - Continue IV normal saline at 75 ml/hr - Continue to monitor CMP - Hold HCTZ <Anne Cadet, PA-C - Last Filed: 12/03/19 16:27> (5) Abnormal chest x-ray: Code(s): R93.89 - Abnormal findings on diagnostic imaging of other specified body structures <Anne Andreweufemia PA-C - Last Filed: 12/03/19 16:27> Status: Acute <Anne Cadet, PA-C - Last Filed: 12/03/19 16:27> Assessment and Plan: CXR on 12/01/19 revealed improvement of right bibasilar airspace disease. Prior CXR on 11/27 consistent with atelectasis vs pneumonia. Patient reported cough productive of weathers sputum, but reports cough is improving and remains afebrile. [facility] was st
[2019-12-03 12:51] LABS: Glucose Point of Care 218 (65-105)
[2019-12-03 13:31] LABS: Lactic Acid 0.6 mmol/L (0.7-2.1)
[2019-12-03 13:41] LABS: Blood Urea Nitrogen 18 mg/dL (7-17); Calcium 8.6 mg/dL (8.4-10.2); Carbon Dioxide 27 mmol/L (22-30); Chloride 92 mmol/L (98-107); Estimated CRCL calculation 45 ml/min; Estimated Glomerular Filt Rate 48; Glucose 212 mg/dL (65-105); Magnesium 1.1 mg/dL (1.6-2.3); Phosphorus 3.9 mg/dL (2.5-4.5); Potassium 3.6 mmol/L (3.4-5.0); Sodium 126 mmol/L (137-145)
[2019-12-03] MEDS: INSULIN ASPART (*BKC) 100 UNITS/ML SUB-Q ×2 (13:59→18:49)
[2019-12-03] MEDS: ACIDOPHILUS/BULGARICUS CHEWABLE TABLET 1 TABLET PO (14:00)
[2019-12-03] MEDS: VANCOMYCIN ORAL 125 MG/2.5 ML SYRUP PO (14:00)
[2019-12-03 17:00] LABS: Glucose Point of Care 253 (65-105)
[2019-12-03] MEDS: ONDANSETRON INJ 4 MG/2 ML VIAL IV PUSH (17:27)
[2019-12-03 23:20] LABS: Glucose Point of Care 287 (65-105)
[2019-12-04] VITALS (16 sets, daily range): BP systolic 108–123; BP diastolic 60–62; PULSE 100–117; RESP 18–20; TEMP 36.6–36.8; O2SAT 90–91
[2019-12-04] MEDS: metroNIDAZOLE 500 MG/ISO 100ML 500 MG/100 ML BAG 100 MG IVPB ×4 (00:58→18:08)
[2019-12-04] MEDS: SODIUM CHLORIDE 0.9% IV 1,000 ML 75 ML IV CONT ×2 (00:59→22:22)
[2019-12-04] MEDS: ALBUTEROL SULFATE NEB 2.5 MG/0.5 ML INH 5 MG INHALATION ×4 (03:30→21:02)
[2019-12-04] MEDS: IPRATROPIUM BR 0.02% INH SOLN 0.5 MG/2.5 ML VIAL INHALATION ×4 (03:30→21:02)
--- NOTE | 2019-12-04 03:43 | PC.NURSE ---
Daylight Savings Time For Daylight Savings Time Ending in the Fall - Clocks are moved back. For Daylight Savings Time Beginning in the Spring - Clocks are moved ahead. For [facility], the time of change occurs at 0200 hrs. Time is taken from the associate sales representative. This entry on the patient's chart recognizes the change in time reflected during documentation. Example: 2 entries for vital signs may be charted for 0200 hrs.
[2019-12-04] MEDS: LEVOTHYROXINE SODIUM INJ 100 MCG/5 ML VIAL 56 MCG IV PUSH (06:12)
[2019-12-04 06:46] LABS: Basophils Percent Auto 0.1 % (0.2-1.2); Hematocrit 34.9 % (37.0-47.0); Hemoglobin 11.7 g/dL (12.0-15.0); Immature Granulocyte Absolute 0.21 K/mm3 (0.00-0.031); Immature Granulocyte Percent A 0.9 % (0-0.5); Lymphocytes Absolute Auto 0.35 K/mm3 (0.9-3.2); Lymphocytes Percent Auto 1.5 % (18.3-44.2); Mean Corpuscular HGB Conc 33.5 g/dl (32-36); Mean Corpuscular Hemoglobin 30.5 pg (26-34); Mean Corpuscular Volume 91.1 fl (80-100); Mean Platelet Volume 9.3 fl (7.4-10.4); Monocytes Absolute Auto 0.9 K/mm3 (0.1-0.6); Monocytes Percent Auto 3.7 % (2.6-8.5); Neutrophils Absolute Auto 21.8 K/mm3 (1.3-6.7); Neutrophils Percent Auto 93.8 % (45.5-73.1); Platelet Count Result 340 k/mm3 (150-375); Red Blood Count 3.83 M/mm3 (4.2-5.4); Red Cell Distribution Width 13.3 % (11.5-14.5); White Blood Count 23.3 K/mm3 (4.5-10.0)
[2019-12-04 07:10] LABS: Alanine Aminotransferase 18 U/L (4-35); Albumin Level 3.2 g/dL (3.5-5.1); Alkaline Phosphatase 60 U/L (38-126); Aspartate Amino Transferase 23 U/L (14-36); Bilirubin,Total 0.5 mg/dL (0.2-1.3); Blood Urea Nitrogen 23 mg/dL (7-17); Calcium 8.2 mg/dL (8.4-10.2); Carbon Dioxide 30 mmol/L (22-30); Chloride 92 mmol/L (98-107); Estimated CRCL calculation 33 ml/min; Estimated Glomerular Filt Rate 33; Glucose 241 mg/dL (65-105); Phosphorus 4.2 mg/dL (2.5-4.5); Potassium 3.5 mmol/L (3.4-5.0); Sodium 129 mmol/L (137-145)
[2019-12-04 07:33] LABS: Lactic Acid 0.9 mmol/L (0.7-2.1)
[2019-12-04 07:53] LABS: Burr Cells 1+ (NORMAL); Ovalocytes 1+ (NORMAL); Platelet Estimate Adequate (Adequate); Poikilocytosis 1+ (NORMAL)
[2019-12-04] MEDS: INSULIN ASPART (*BKC) 100 UNITS/ML SUB-Q ×3 (08:20→17:23)
[2019-12-04] MEDS: MAGNESIUM SULF 2 GM/WATER 50ML 2 GM/50 ML BAG IVPB (09:56)
[2019-12-04 11:16] LABS: INR 1.1; Prothrombin Time 14.2 Seconds (11.1-14.7)
[2019-12-04 11:17] LABS: Partial Thromboplastin Time 27.1 SECONDS (22.3-36.8)
[2019-12-04 12:46] LABS: Glucose Point of Care 254 (65-105)
[2019-12-04 12:46] LABS: Glucose Point of Care 243 (65-105)
--- NOTE | 2019-12-04 13:02 | PM.IMPN ---
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 On 12/02, patient experiencing severe abdominal distension. Discussed case with Dr. Fitzpatrick who recommended clear liquid diet and repeat imaging. Followed up with abdominal CT on 12/02 revealing findings suspicious for obstruction possibly of small bowel and colon. A consult was placed to general surgeon Dr. Lucas, patient was made NPO and NG decompression performed on 12/02 which drained 2200 cc. Abdominal XR on 12/03 revealed stable dilated small bowel and colon. Water soluble enema on 12/03 revealed no obstruction. Patient is suspected to have a colonic ileus with possible etiology being trauma from compression fracture that was discovered on 11/24/19. Important to note that patient has a history of colonic ileus in 2017 treated with decompressive colonoscopy by Dr. Bright. - Consult ordered to Dr. Fitzpatrick with recommendations appreciated Edited to note that Dr. Valencia discussed case with Dr. Bright given patient's history. Dr. Bright will see the patient tomorrow 12/04. - Abdomen/KUB X-ray ordered daily per Dr. Lucas with any additional recommendations appreciated. At this time, patient is not a surgical candidate and goal is for conservative therapy. - Continue to monitor CBC for leukocytosis and lactic acid. - Continue IV Fluids <EDWIN Au-C - Last Filed: 12/04/19 17:59> (2) Diarrhea: Qualifiers: Diarrhea type: unspecified type Qualified Code(s): R19.7 - Diarrhea, unspecified <Anne Cadet PA-C - Last Filed: 12/04/19 17:59> Code(s): R19.7 - Diarrhea, unspecified <Anne JElvin Cadet PA-C - Last Filed: 12/04/19 17:59> Status: Acute <Anne Cadet PA-C - Last Filed: 12/04/19 17:59> Assessment and Plan: Patient completed 7 day course of Levaquin on 11/24/19 and additional course of Levaquin from 11/28/19-12/01/19 for suspected right lower lobe pneumonia. Levaquin stopped at admission on 11/30. Patient was experiencing liquid brown stools which were initially thought to be antibiotic associated. A stool culture to test for C. diff toxin was ordered but was unable to be collected. The patients white count is elevated at 23.3, a significant increase from WBC on 12/02 at 12.9. Lactic is within normal limits at 0.9 She has not had an episode of diarrhea in 24 hours. - Continue IV Flagyl Q6H. Initiated on 12/02/2019 - Continue IV Levaquin at recommendation of Dr. Lucas. Initiated on 12/03/2019. - Was started on PO vanc on 12/02 and received one dose. PO vanc discontinued as patient is NPO and additional antibiotic therapy is on board. - Hold probiotics as patient is NPO. Received probiotic x1 day on 12/02. - Continue to monitor WBC and lactic acid. <Anne Cadet PA-C - Last Filed: 12/04/19 17:59> (3) Acute on chronic renal failure: Qualifiers: Acute renal failure type: unspecified Chronic kidney disease stage: stage 3 (moderate) Qualified Code(s): N17.9 - Acute kidney failure, unspecified; N18.3 - Chronic kidney disease, stage 3 (moderate) <Anne Cadet PA-C - Last Filed: 12/04/19 17:59> Code(s): N17.9 - Acute kidney failure, unspecified; N18.9 - Chronic kidney disease, unspecified <Anne Cadet PA-C - Last Filed: 12/04/19 17:59> Status: Acute <Anne Cadet PA-C - Last Filed: 12/04/19 17:59> Assessment and Plan: Likely pre-renal due to volume depletion. At presentation, Creatinine was 2.7 and today decreased to 1.5. - Hold Lisinopril and HCTZ as patien
--- NOTE | 2019-12-04 13:08 | WPDGICN ---
Assessment and Plan Assessment and plan (1) Colon distention: Code(s): K63.89 - Other specified diseases of intestine Status: Acute Assessment and Plan: similar presentation 2017, she feels better with NGT. Will follow clinical course, may need decompression again with rectal tube if no return of bowel movements. Keep npo for now and NGT. Repeat abdominal XR tomorrow. Surgical team on board Dr Bright is taking over patient's care tomorrow. (2) Abdominal distension: Code(s): R14.0 - Abdominal distension (gaseous) Status: Acute Assessment and Plan: C diff stool was ordered (recent use of abx) (3) Pneumonia: Qualifiers: Laterality: bilateral Lung location: unspecified part of lung Pneumonia type: due to unspecified organism Qualified Code(s): J18.9 - Pneumonia, unspecified organism Code(s): J18.9 - Pneumonia, unspecified organism Status: Acute Assessment and Plan: it was treated recently. (4) COPD (chronic obstructive pulmonary disease): Qualifiers: COPD type: unspecified COPD Qualified Code(s): J44.9 - Chronic obstructive pulmonary disease, unspecified Code(s): J44.9 - Chronic obstructive pulmonary disease, unspecified Status: Acute GI Consult Note Consult date/time: 12/04/19 13:08 Reason for consult: colon dilation HPI: Cristina Bravo is a 79 year old female with history of uterine cancer s/p hysterectomy, DM, HTN who in 2017 was admitted to the hospital with colonic dilation that required decompression with rectal tube, no obstructing lesions found and treated medically, she was evaluated by Dr Bright, her last colonoscopy 2017 with small polyps removed, also had diverticulosis. She was treated for pneumonia with levaquin for almost 2 weeks, then experienced severe diarrhea but since admission has not been able to have any more bowel movements and noted severe distension of abdomen. CT scan showed colon distension again,XR water soluble enema did not show strictures at the splenic flexure, descending colon or sigmoid colon. Moderate amount of retained fecal material in the left colon. Yesterday NGT was placed and had 2.2L output, she feels much better today but still distended abdomen. Review of Systems Constitutional: Constitutional: Denies headache(s) and Denies weakness Eyes: Eyes: Denies blurry vision ENT: Reports Normal hearing present, Denies headache(s) and Denies neck pain Cardiovascular: Cardiovascular: Denies chest pain and Denies dyspnea Respiratory: Respiratory: Reports cough Gastrointestinal: Gastrointestinal: Reports abdominal pain, Reports change in bowel habits and Reports nausea Genitourinary: Genitourinary: Denies dysuria Musculoskeletal: Musculoskeletal: Denies neck pain Integumentary/Breasts: Skin/Breast: Denies dry skin Neurologic: Reports Normal hearing present, Denies headache(s) and Denies weakness Psychiatric: Psychiatric: Denies anxiety Endocrine: Endocrine: Denies change in body appearance Hematologic/Lymphatic: Hematologic/Lymphatic: Denies easy bleeding Allergic/Immunologic: Allergic/Immunologic: Denies urticaria PMFSH Past Medical History Medical History (Updated 12/04/19 @ 13:19 by Pascual Fitzpatrick MD) Anemia Asthma Back pain Benign essential hypertension Bronchitis Cataracts, bilateral Chronic kidney disease, stage 3 With baseline creatinine between 1.2-1.4 Colon distention Compression fracture of thoracic spine, non-traumatic COPD (chronic obstructive pulmonary disease) Cough DM type 2 (diabetes mellitus, type 2) DVT (deep venous thrombosis) LLE Eczema Elevated serum creatinine Encounter for routine adult health examination without abnormal findings HTN (hypertension) Hx of colonic polyps Hyperlipidemia Hypothyroid Hypothyroidism (acquired) Left wrist fracture Melena On nursing home drug therapy Pneumonia Rheumatoid arthritis Seasonal allergies Torn rota
--- NOTE | 2019-12-04 13:39 | PM.CNGS ---
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 Probably has colonic ileus due to compression fractures noted on plain films the end of October. I discussed this with Dr. Valencia and with Anne. Recommend continue NPO and NG suction. Patient may benefit from colonoscopically decompression or neostigmine. Would follow plain films, CBC, electrolytes, lactate daily. No indication for surgical decompression at present. Patient would be a poor surgical candidate. Hopefully this will resolve with conservative therapy as it did in 2017. (2) Diarrhea: Qualifiers: Diarrhea type: unspecified type Qualified Code(s): R19.7 - Diarrhea, unspecified Code(s): R19.7 - Diarrhea, unspecified Status: Acute Assessment and Plan: Continue treatment for antibiotic associated colitis. (3) Compression fracture of thoracic spine, non-traumatic: Qualifiers: Encounter type: subsequent encounter Thoracic vertebra fracture level: T1 Fracture healing: with routine healing Qualified Code(s): M48.54XD - Collapsed vertebra, not elsewhere classified, thoracic region, subsequent encounter for fracture with routine healing Code(s): M48.54XA - Collapsed vertebra, not elsewhere classified, thoracic region, initial encounter for fracture Status: Acute Assessment and Plan: Noted on plain films 11/24/2019. (4) COPD (chronic obstructive pulmonary disease): Qualifiers: COPD type: unspecified COPD Qualified Code(s): J44.9 - Chronic obstructive pulmonary disease, unspecified Code(s): J44.9 - Chronic obstructive pulmonary disease, unspecified Status: Chronic (5) DM type 2 (diabetes mellitus, type 2): Code(s): E11.9 - Type 2 diabetes mellitus without complications Status: Chronic (6) Benign essential hypertension: Code(s): I10 - Essential (primary) hypertension Status: Chronic (7) Morbid obesity due to excess calories: Code(s): E66.01 - Morbid (severe) obesity due to excess calories Status: Chronic History of Present Illness Consult details Consult date: 12/04/19 Reason for consult: abdominal pain Narrative: the patient is a 79-year-old woman who had a 7 day course of Levaquin starting November 18 followed by a 2nd course of Levaquin starting on November 27 to treat a possible right lower lobe pneumonia. Her breathing and cough as well as our congestion have improved. However on November 29 she started having diarrhea and she was largely incontinent of stool. Also noteworthy is that on November 24 she had multiple plain films of thoracic lumbar pelvis SI joint as well as a renal ultrasound. These films were largely negative although the thoracic spine plain films did show some potentially acute compression fractures. She came to the emergency room on November 30, the day after the diarrhea started. [place] [id number]. Her sodium was low at 126. Her creatinine was elevated at 2.7. Her baseline creatinine is 1.3-1.4. She had a chest x-ray which was negative. Although ordered, C difficile toxin titer was not able to be obtained. When patient has a bowel movement she frequently urinates with it making the sample inadequate. She was admitted and started on antibiotic therapy for antibiotic associated colitis. Yesterday she was noted to have a rising white count and abdominal distention. CT scan showed ileus of both the colon and the small intestine with a possible stricture in the left colon. I was consulted last night. A nasogastric tube was placed. This drained 2200 cc and the patient has had much improvement. She no longer has abdominal pain or nausea. On her plain films this morning, her colon and small bowel were still quite dilated.
[2019-12-04 16:31] LABS: Lactic Acid 0.9 mmol/L (0.7-2.1); Magnesium 1.6 mg/dL (1.6-2.3)
[2019-12-04 17:45] LABS: Glucose Point of Care 221 (65-105)
[2019-12-04 22:37] LABS: Glucose Point of Care 194 (65-105)
[2019-12-05] VITALS (18 sets, daily range): BP systolic 134–143; BP diastolic 63–74; PULSE 100–122; RESP 18–22; TEMP 36.4–37.6; O2SAT 88–97
[2019-12-05] MEDS: metroNIDAZOLE 500 MG/ISO 100ML 500 MG/100 ML BAG 100 MG IVPB ×4 (00:21→18:28)
[2019-12-05] MEDS: ALBUTEROL SULFATE NEB 2.5 MG/0.5 ML INH 5 MG INHALATION ×4 (02:27→21:48)
[2019-12-05] MEDS: IPRATROPIUM BR 0.02% INH SOLN 0.5 MG/2.5 ML VIAL INHALATION ×4 (02:27→21:48)
[2019-12-05 06:47] LABS: Hemoglobin 10.9 g/dL (12.0-15.0); Mean Corpuscular Hemoglobin 31.2 pg (26-34); Mean Corpuscular Volume 94.6 fl (80-100); Mean Platelet Volume 9.4 fl (7.4-10.4); Platelet Count Result 312 k/mm3 (150-375); Red Blood Count 3.49 M/mm3 (4.2-5.4); Red Cell Distribution Width 13.8 % (11.5-14.5); White Blood Count 17.2 K/mm3 (4.5-10.0)
[2019-12-05] MEDS: LEVOTHYROXINE SODIUM INJ 100 MCG/5 ML VIAL 56 MCG IV PUSH (06:54)
[2019-12-05 07:04] LABS: Lactic Acid 0.7 mmol/L (0.7-2.1)
[2019-12-05 07:10] LABS: Blood Urea Nitrogen 41 mg/dL (7-17); Calcium 7.6 mg/dL (8.4-10.2); Carbon Dioxide 30 mmol/L (22-30); Chloride 92 mmol/L (98-107); Estimated CRCL calculation 22 ml/min; Estimated Glomerular Filt Rate 20; Glucose 190 mg/dL (65-105); Magnesium 1.6 mg/dL (1.6-2.3); Phosphorus 4.6 mg/dL (2.5-4.5); Potassium 3.3 mmol/L (3.4-5.0); Sodium 132 mmol/L (137-145)
--- NOTE | 2019-12-05 08:03 | PM.PNGS ---
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 Has very high NG tube output. Although not evident on initial imaging, small-bowel obstruction is a possibility. I think ileus is more likely. Colon is decompressed today which was massively distended yesterday. She feels better. Will continue NG suction, NPO except ice chips, serial labs serial imaging and serial exam. . Hopefully will resolve without surgery which would be quite high risk. (2) Compression fracture of thoracic spine, non-traumatic: Qualifiers: Encounter type: subsequent encounter Thoracic vertebra fracture level: T1 Fracture healing: with routine healing Qualified Code(s): M48.54XD - Collapsed vertebra, not elsewhere classified, thoracic region, subsequent encounter for fracture with routine healing Code(s): M48.54XA - Collapsed vertebra, not elsewhere classified, thoracic region, initial encounter for fracture Status: Acute Assessment and Plan: May have led to ileus described above. (3) COPD (chronic obstructive pulmonary disease): Qualifiers: COPD type: unspecified COPD Qualified Code(s): J44.9 - Chronic obstructive pulmonary disease, unspecified Code(s): J44.9 - Chronic obstructive pulmonary disease, unspecified Status: Chronic (4) Morbid obesity due to excess calories: Code(s): E66.01 - Morbid (severe) obesity due to excess calories Status: Chronic (5) DM type 2 (diabetes mellitus, type 2): Code(s): E11.9 - Type 2 diabetes mellitus without complications Status: Chronic (6) Benign essential hypertension: Code(s): I10 - Essential (primary) hypertension Status: Chronic Subjective Subjective Date/Time Seen: 12/05/19 08:03 Feels at least 50% better. Abdominal pain much reduced. Does not feel as distended. Had bowel movements after her hypaque enema yesterday. NG tube continues to drain large amounts. Patient reports: feels better, pain is less, bowel movement, nausea, vomiting and afebrile Review of Systems Review of Systems: All systems reviewed & are unremarkable except as noted in HPI and below Constitutional: Constitutional: Denies headache(s) ENT: Denies headache(s) Cardiovascular: Cardiovascular: Denies chest pain and Denies dyspnea Respiratory: Respiratory: Denies cough and Denies dyspnea Gastrointestinal: Gastrointestinal: Reports as per HPI Neurologic: Denies confusion and Denies headache(s) Psychiatric: Psychiatric: Denies confusion Exam Const: General: comfortable and no acute distress; No confusion Orientation/consciousness: patient oriented x3 and No confusion Resp: Effort & Inspection: normal respiratory effort Auscultation: clear to auscultation bilaterally Cardio: Rate: regular rate Rhythm: regular rhythm GI: Inspection: distended and visible herniation ( Umbilical, reducible) GI Palp: Yes Soft to palpation, Yes Tenderness to palpation present (GI) ( minimal tenderness, less distended, no tympany), No Guarding due to palpation present (GI) and No Rebound tenderness present Auscultation: absent bowel sounds Neuro: General: patient oriented x3, no focal motor deficits and No confusion Extrem: General: no calf tenderness and no edema Psych: Affect: normal affect Insight: Good insight present (Psych) Judgement: Good judgement present (Psych) Objective Data Vital Signs Vital Signs: Vital Signs - 24 hr 12/04/19 08:42 12/04/19 08:51 12/04/19 14:00 Temperature 36.6 C Pulse Rate 100 108 H 114 H Respiratory Rate 20 20 18 Blood Pressure 108/61 Pulse Oximetry 90 90 12/04/19 15:38 12/04/19 15:49 12/04/19 20:00 Temperature Pulse Rate 112 H 111 H 107 H Respiratory Rate 20 20 Blood Pressure Pulse Oximetry 12/04/19 21:03 12/04/19 21:06 03
[2019-12-05] MEDS: INSULIN ASPART (*BKC) 100 UNITS/ML SUB-Q ×2 (08:17→18:31)
[2019-12-05 08:27] LABS: Glucose Point of Care 204 (65-105)
--- NOTE | 2019-12-05 11:11 | PM.IMPN ---
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 On 12/02, patient experiencing severe abdominal distension. Discussed case with Dr. Fitzpatrick who recommended clear liquid diet and repeat imaging. Followed up with abdominal CT on 12/02 revealing findings suspicious for obstruction possibly of small bowel and colon. A consult was placed to general surgeon Dr. Lucas, patient was made NPO and NG decompression performed on 12/02 which drained 2200 cc. Abdominal XR on 12/03 revealed stable dilated small bowel and colon. Water soluble enema on 12/03 revealed no obstruction. Patient is suspected to have a colonic ileus with possible etiology being trauma from compression fracture that was discovered on 11/24/19. Important to note that patient has a history of colonic ileus in 2017 treated with decompressive colonoscopy by Dr. Bright - Dr. Valencia discussed case with Dr. Bright who will now be following the patient. AXR today reveals dilated small bowel with partial decompression of colon, now suspicious for SBO. There has been approximately 600 cc output from NG tube since shift change this AM. - Await recommendations of Dr. Bright which are appreciated. - Abdomen/KUB X-ray ordered daily per Dr. Lucas with any additional recommendations appreciated. At this time goal is for conservative therapy over surgical therapy as patient is a high risk surgical candidate. - Continue to monitor CBC for leukocytosis and lactic acid. - Continue IV Fluids - Continue NPO diet with ice chips <Anne Cadet PA-C - Last Filed: 12/05/19 16:30> (2) Diarrhea: Qualifiers: Diarrhea type: unspecified type Qualified Code(s): R19.7 - Diarrhea, unspecified <Anne Cadet PA-C - Last Filed: 12/05/19 16:30> Code(s): R19.7 - Diarrhea, unspecified <Anne Cadet PA-C - Last Filed: 12/05/19 16:30> Status: Acute <Anne Cadet PA-C - Last Filed: 12/05/19 16:30> Assessment and Plan: Patient completed 7 day course of Levaquin on 11/24/19 and additional course of Levaquin from 11/28/19-12/01/19 for suspected right lower lobe pneumonia. Levaquin stopped at admission on 11/30. Patient was experiencing liquid brown stools which were initially thought to be antibiotic associated. Documentation suggested stool specimen was collected on 12/01/19 for C. diff toxin testing, but lab confirms no sample was received. Ultimately a sample was not able to be collected as all collection attempts had urine mixed with stool which, per [facility], would not be adequate. The patients white count is elevated at 17.2, but appears to be trending down. Lactic is within normal limits at 0.7. She has not had an episode of diarrhea in 2 days. - Continue IV Flagyl Q6H. Initiated on 12/02/2019. - Continue IV Levaquin at recommendation of Dr. Lucas. Initiated on 12/03/2019. - Was started on PO vancomycin on 12/02 and received one dose. PO vanc discontinued as patient is NPO and additional antibiotic therapy is on board. - Hold probiotics as patient is NPO. Received probiotic x1 day on 12/02. - Continue to monitor WBC and lactic acid serially. <Anne Cadet PA-C - Last Filed: 12/05/19 16:30> (3) Acute on chronic renal failure: Qualifiers: Acute renal failure type: unspecified Chronic kidney disease stage: stage 3 (moderate) Qualified Code(s): N17.9 - Acute kidney failure, unspecified; N18.3 - Chronic kidney disease, stage 3 (moderate) <Anne Cadet PA-C - Last Filed: 12/05/19 16:30> Code(s): N17.9 - Acute kidney failure, unspe
[2019-12-05] MEDS: SODIUM CHLORIDE 0.9% IV 1,000 ML 75 ML IV CONT (11:31)
[2019-12-05 12:42] LABS: Glucose Point of Care 170 (65-105)
--- NOTE | 2019-12-05 14:58 | WPDGIPROGNO ---
Subjective Date/time seen: 12/05/19 14:58 This very pleasant lady's passing flatus. No bowel movement. She feels less distended. No nausea or vomiting. Her breathing seems to be at baseline. Review of Systems Review of Systems: All systems reviewed & are unremarkable except as noted in HPI and below Exam Narrative: Exam Narrative: General: very pleasant patient in no acute distress. HEENT: Head was normocephalic sclerae is clear mouth without masses neck was supple. Heart: Rate rhythm regular without S3 or S4. Lungs: CTA. Abdomen: Soft with no guarding or rigidity. Bowel sounds were active. Neurologic: Cranial nerves 2 through 12 intact. No focal defects. No clonus. Musculoskeletal system: Revealed no joint tenderness or swelling no muscle atrophy. Extremities: Reveal no significant edema. Skin: Warm and dry with normal turgor. Mental status: intact. Patient is alert and oriented. Impression: Here we have a very pleasant lady with dilated colon and small bowel. This may be secondary to ileus versus small-bowel obstruction. With decompression of colon small bowel obstruction certainly in the differential. Leukocytosis. May be secondary to above. Recent pneumonia. History of adenomatous colon polyps. Last colonoscopy was September of 2018. Diabetes mellitus. Hypertension. Hyperlipidemia. Chronic kidney disease. COPD. Hypothyroidism. Rheumatoid arthritis. Next and history of deep venous thrombosis. Obesity. Recommendation: Recheck KUB in the morning. Continue IV fluids and NG tube decompression. Recheck laboratory studies. Consider Gastrografin small-bowel of follow-through. Further recommendations will be forthcoming. Objective Data Vital Signs Vital Signs: Vital Signs - 24 hr 12/04/19 15:38 12/04/19 15:49 12/04/19 20:00 Temperature Pulse Rate 112 H 111 H 107 H Respiratory Rate 20 20 Blood Pressure Pulse Oximetry 12/04/19 21:03 12/04/19 21:06 12/04/19 21:13 Temperature Pulse Rate 110 H 108 H Respiratory Rate 20 20 Blood Pressure Pulse Oximetry 91 12/04/19 22:00 12/05/19 00:00 12/05/19 02:27 Temperature 36.6 C Pulse Rate 107 H 111 H 106 H Respiratory Rate 20 21 H Blood Pressure 121/60 Pulse Oximetry 90 12/05/19 02:35 12/05/19 04:00 12/05/19 06:00 Temperature 37.6 C Pulse Rate 100 104 H Respiratory Rate 18 Blood Pressure 135/68 Pulse Oximetry 12/05/19 08:00 12/05/19 09:42 12/05/19 09:57 Temperature Pulse Rate 100 106 H 107 H Respiratory Rate 22 H 20 Blood Pressure Pulse Oximetry 88 L 12/05/19 12:00 12/05/19 14:21 12/05/19 14:34 Temperature 36.7 C Pulse Rate 113 H 109 H 111 H Respiratory Rate 18 22 H Blood Pressure 143/63 H Pulse Oximetry 93 12/05/19 14:45 Temperature Pulse Rate 110 H Respiratory Rate 22 H Blood Pressure Pulse Oximetry Intake/Output Intake/Output: Intake & Output 12/02/19 12/03/19 12/04/19 12/05/19 22:59 22:59 23:59 23:59 Intake Total 1480 Output Total 1300 Balance 180 Meds/Results Medications: Active Medications Generic Name Dose Route Start Last Admin Trade Name Freq PRN Reason Stop Dose Admin Acetaminophen 650 mg 12/03/19 11:46 Tylenol Tablet PO Q4H PRN Mild Pain (1-3) or Headache Albuterol 5 mg 12/01/19 20:00 12/05/19 14:32 Albuterol Sulf Neb 2.5mg/0.5ml INHALATION 5 mg Q6HRT IRIS Administration Dextrose 12.5 gm 12/01/19 23:12 Dextrose 50% Syringe IV PUSH PRN PRN Hypoglycemia Protocol Glimepiride 2 mg 12/02/19 08:00 12/03/19 09:32 Amaryl PO Not Given DAILY@0800 IRIS Glucagon 1 mg 12/01/19 23:12 Glucagon For Inj IM PRN PRN Hypoglycemia Protocol Glucose 15 gm 12/01/19 23:12 Glutose 15 PO PRN PRN Hypoglycemia Protocol Guaifenesin 600 mg 12/02/19 21:00 12/03/19 09:33 Mucinex 12 Hr Tab PO 600 mg Q12HR IRIS Administration
[2019-12-05 19:10] LABS: Glucose Point of Care 233 (65-105)
--- NOTE | 2019-12-05 20:49 | ECG_ITS ---
Measurements Intervals [place] Rate: 117 P: 60 MO: 152 QRS: 45 QRSD: 101 T: 10 QT: 311 QTc: 435 Interpretive Statements SINUS TACHYCARDIA POSSIBLE LEFT ATRIAL ENLARGEMENT MINIMAL Q WAVES- INFERIOR LEADS BASELINE WANDER- II, III, AVF, V1, V4-V6 ABNORMAL ECG Electronically Signed On 12-06-2019 6:59:01 CDT by Alvarez Gaytan D.O.
[2019-12-05 21:14] LABS: Alanine Aminotransferase 17 U/L (4-35); Albumin Level 3.2 g/dL (3.5-5.1); Alkaline Phosphatase 72 U/L (38-126); Aspartate Amino Transferase 24 U/L (14-36); Bilirubin,Total 0.5 mg/dL (0.2-1.3); Blood Urea Nitrogen 49 mg/dL (7-17); Calcium 7.9 mg/dL (8.4-10.2); Carbon Dioxide 35 mmol/L (22-30); Chloride 89 mmol/L (98-107); Estimated CRCL calculation 20 ml/min; Estimated Glomerular Filt Rate 18; Glucose 278 mg/dL (65-105); Potassium 3.4 mmol/L (3.4-5.0); Sodium 135 mmol/L (137-145)
[2019-12-05 21:15] LABS: Magnesium 1.8 mg/dL (1.6-2.3); Phosphorus 4.8 mg/dL (2.5-4.5)
[2019-12-05 21:31] LABS: Alveolar/Arterial O2 Gradient 122.1 mmHg; Base Excess ABG 7.7 mEq/l (+/-2.0); Carboxyhemoglobin 0.8 % THb (0-2.0); Device NASAL CANNULA; Fractional Inspired Oxygen 40 %; HCO3 ABG 33.6 mEq/l (22.0-26.0); Methemoglobin ABG 0.2 %THb (0-1.5); Modified Allen's Test Pass; Oxygen Content ABG 16.8 %vol (16.0-22.0); Oxygen Saturation ABG 97.7 % (95.0-100.0); Oxyhemoglobin 95.7 % THb (90.0-100.0); PCO2 ABG 53.1 mmHg (35.0-45.0); PO2 FiO2 Ratio Arterial Blood 2.55 %; Reduced Hemoglobin 3.3 %THb (0-5.0); Site Drawn LEFT RADIAL; Total Hemoglobin 12.4 g/dL (12.0-18.0); pH ABG 7.419 (7.350-7.450)
--- NOTE | 2019-12-05 21:45 | P.PNCROSS_ITS ---
Event Note Event Note Event Note: S: I received a phone call from this patient's nurse at [facility] 20:45. Patient was just finishing her last x-ray as she was doing a small bowel follow-through, and began complaining of shortness of breath. She was also reportedly hypoxic, requiring up to 5 liters nasal cannula to maintain oxygen saturations in the mid 90s. Stat chest x-ray left basilar subsegmental atelectasis and a small left pleural effusion. She was given a nebulizer. As she was finished with her small-bowel follow-through, her NG tube was placed once again to low intermittent suction with a return of 500 cubic centimeters of green opaque fluid within about 30 minutes time. At the time my evaluation, she reports feeling much better after receiving the nebulizer, and more so after her NG was placed back to low intermittent suction. She admits to feeling especially anxious when she was short of breath, but has now settled down and her only complaint at this time is of mild discomfort with the pillows. Her abdomen is noted to be very distended, which she denies is any larger than what it has been. She is also noted to be tachycardic, and is asymptomatic with that. She denies fever, chills, sweats, chest pain, pleuritic pain, lower extremity edema, calf pain, and any significant abdominal discomfort. O: Well-developed, mildly ill-appearing elderly female sitting up in bed in no acute distress. NG tube draining opaque green fluid. She is tachycardic with regular rate and rhythm. She has faint expiratory wheezes with diminished breath sounds at the left base. Abdomen is very distended with diffuse tympany and very hypoactive bowel sounds. Umbilical hernia without pain. Quiroga catheter has just been placed with a small amount of dark yellow urine in the bag. She has trace cristina ankle edema bilaterally. No calf pain or tenderness to palpation. Negative Farrah sign bilaterally. A: Acute respiratory failure with hypoxia and acute kidney injury. I suspect this is due to her significantly distended abdomen pressing on her diaphragm in addition to wheezing (patient gives a history of underlying asthma). No evidence of volume overload. Pulmonary embolism is considered but less likely. Her tachycardia can be explained by her dehydration and anxiety, and hypoxia can be explained due to massively distended abdomen and wheezing. P: Continue NG to low intermittent suction. Continue scheduled nebulizers. I will give her a bolus of fluid and start maintenance fluids as she looks incredibly dry. Quiroga catheter inserted for strict monitoring of I/O. Will obtain venous Doppler ultrasounds in a.m. to evaluate for possible DVT, and consider V/Q scan. At this time, I do not feel empiric heparin is indicated, especially in light of the fact that she may require procedure. Critical Care Time Critical Care Time: Yes Total Critical Care Time: 35 Attestation: 35 minutes critical care time was spent in attention of this patient including a thorough review of her electronic medical records, ordering of labs and imaging as well as interpretation of such, initiation of oxygen, as well as discussions with the nurse and patient regarding findings and plans for treatment.
--- NOTE | 2019-12-05 22:00 | PC.NURSE ---
aYni YARN WEIGHER returned call (attempted to call xs 3). Notified of pt's increasing SOB, need for O2, elevated HR, and low blood pressure. Orders received.
[2019-12-05 22:23] LABS: Hematocrit 35.7 % (37.0-47.0); Hemoglobin 11.8 g/dL (12.0-15.0); Mean Corpuscular HGB Conc 33.1 g/dl (32-36); Mean Corpuscular Hemoglobin 31.1 pg (26-34); Mean Corpuscular Volume 93.9 fl (80-100); Mean Platelet Volume 9.2 fl (7.4-10.4); Platelet Count Result 357 k/mm3 (150-375); Red Cell Distribution Width 13.9 % (11.5-14.5)
[2019-12-05 22:36] LABS: Alanine Aminotransferase 17 U/L (4-35); Albumin Level 3.3 g/dL (3.5-5.1); Alkaline Phosphatase 72 U/L (38-126); Aspartate Amino Transferase 24 U/L (14-36); Bilirubin,Total 0.5 mg/dL (0.2-1.3); Blood Urea Nitrogen 50 mg/dL (7-17); Calcium 7.9 mg/dL (8.4-10.2); Carbon Dioxide 35 mmol/L (22-30); Chloride 88 mmol/L (98-107); Estimated CRCL calculation 20 ml/min; Estimated Glomerular Filt Rate 18; Glucose 300 mg/dL (65-105); Potassium 3.4 mmol/L (3.4-5.0); Sodium 135 mmol/L (137-145)
[2019-12-05 22:48] LABS: NT Pro B Type Natriuretic Pept 576 PG/ML (5-100); Troponin I < 0.012 ng/mL (0.000-0.034)
[2019-12-05 22:51] LABS: D Dimer 2.54 ug/mL (<0.48)
[2019-12-06] VITALS (28 sets, daily range): BP systolic 106–180; BP diastolic 52–77; PULSE 71–118; RESP 15–36; TEMP 36.6–37.4; O2SAT 89–100
[2019-12-06] MEDS: metroNIDAZOLE 500 MG/ISO 100ML 500 MG/100 ML BAG 100 MG IVPB ×5 (00:42→23:32)
[2019-12-06 01:59] LABS: Troponin I < 0.012 ng/mL (0.000-0.034)
[2019-12-06] MEDS: SODIUM CHLORIDE 0.9% IV 1,000 ML 999 ML IV CONT (02:14)
[2019-12-06] MEDS: ALBUTEROL SULFATE NEB 2.5 MG/0.5 ML INH 5 MG INHALATION ×3 (02:23→21:50)
[2019-12-06] MEDS: IPRATROPIUM BR 0.02% INH SOLN 0.5 MG/2.5 ML VIAL INHALATION ×3 (02:23→21:50)
[2019-12-06 04:23] LABS: Hematocrit 35.9 % (37.0-47.0); Hemoglobin 11.7 g/dL (12.0-15.0); Mean Corpuscular HGB Conc 32.6 g/dl (32-36); Mean Corpuscular Hemoglobin 30.8 pg (26-34); Mean Corpuscular Volume 94.5 fl (80-100); Mean Platelet Volume 9.3 fl (7.4-10.4); Platelet Count Result 363 k/mm3 (150-375); Red Cell Distribution Width 13.8 % (11.5-14.5); White Blood Count 12.4 K/mm3 (4.5-10.0)
[2019-12-06 04:37] LABS: Blood Urea Nitrogen 52 mg/dL (7-17); Calcium 7.9 mg/dL (8.4-10.2); Carbon Dioxide 32 mmol/L (22-30); Chloride 93 mmol/L (98-107); Estimated CRCL calculation 21 ml/min; Estimated Glomerular Filt Rate 19; Glucose 283 mg/dL (65-105); Potassium 3.2 mmol/L (3.4-5.0); Sodium 135 mmol/L (137-145)
[2019-12-06 04:38] LABS: Lactic Acid 0.9 mmol/L (0.7-2.1)
[2019-12-06 04:51] LABS: Troponin I < 0.012 ng/mL (0.000-0.034)
[2019-12-06 05:07] LABS: Add Urine Microscopic? YES; Appearance Urine Clear (Clear); Bacteria Urine Trace /hpf; Bilirubin Urine Negative (Negative); Blood Urine Negative (Negative); Color Urine Amber (Yellow); Glucose Urine UA Negative (Negative); Ketones Urine Trace mg/dL (Negative); Leukocyte Esterase Ur Trace LEU/UL (Negative); Mucus Urine Rare /lpf; Nitrate Urine Negative (Negative); Protein Urine 2+ mg/dL (Negative); RBC Urine 0-2 /hpf (0-2); Specific Grav Ur 1.024 (1.001-1.035); Squamous Epithelial Cell Urine Rare /hpf (Few); Urobilinogen Urine Negative mg/dL (<2.0)
[2019-12-06] MEDS: LEVOTHYROXINE SODIUM INJ 100 MCG/5 ML VIAL 56 MCG IV PUSH (05:17)
[2019-12-06] MEDS: SODIUM CHLORIDE 0.9% IV 1,000 ML 75 ML IV CONT (05:20)
[2019-12-06] MEDS: KCL 40 MEQ/0.9% SOD CHL 1,000 ML 125 ML IV CONT ×2 (08:10→20:10)
[2019-12-06] MEDS: INSULIN ASPART (*BKC) 100 UNITS/ML SUB-Q ×2 (08:17→12:15)
[2019-12-06 08:21] LABS: Glucose Point of Care 264 (65-105)
--- NOTE | 2019-12-06 09:52 | WPDGIPROGNO ---
Subjective Date/time seen: 12/06/19 09:52 This very pleasant lady's not passed any further flatus. Abdominal distention persists. Results of small bowel series noted. General: very pleasant patient in no acute distress. HEENT: Head was normocephalic sclerae is clear mouth without masses neck was supple. Heart: Rate rhythm regular without S3 or S4. Lungs: Decreased breath sounds bilaterally. Abdomen: Distended without any significant bowel sounds. Neurologic: Cranial nerves 2 through 12 intact. No focal defects. No clonus. Musculoskeletal system: Revealed no joint tenderness or swelling no muscle atrophy. Extremities: Reveal no significant edema. Skin: Warm and dry with normal turgor. Mental status: intact. Patient is alert and oriented. Impression: Here we have a very pleasant lady with dilated colon and small bowel. This may be secondary to ileus versus small-bowel obstruction. With decompression of colon small bowel obstruction certainly in the differential. Leukocytosis. May be secondary to above. Recent pneumonia. History of adenomatous colon polyps. Last colonoscopy was September of 2018. Diabetes mellitus. Hypertension. Hyperlipidemia. Chronic kidney disease. COPD. Hypothyroidism. Rheumatoid arthritis. Next and history of deep venous thrombosis. Obesity. Recommendation: As per surgery. GI will sign off. Objective Data Vital Signs Vital Signs: Vital Signs - 24 hr 12/05/19 09:57 12/05/19 12:00 12/05/19 14:21 Temperature 36.7 C Pulse Rate 107 H 113 H 109 H Respiratory Rate 20 18 Blood Pressure 143/63 H Pulse Oximetry 93 12/05/19 14:34 12/05/19 14:45 12/05/19 16:00 Temperature Pulse Rate 111 H 110 H 122 H Respiratory Rate 22 H 22 H Blood Pressure Pulse Oximetry 12/05/19 20:00 12/05/19 21:48 12/05/19 21:49 Temperature Pulse Rate 118 H 110 H Respiratory Rate 22 H Blood Pressure Pulse Oximetry 97 12/05/19 21:58 12/05/19 22:00 12/06/19 00:00 Temperature 36.4 C Pulse Rate 103 H 118 H 118 H Respiratory Rate 22 H 22 H Blood Pressure 134/74 Pulse Oximetry 92 12/06/19 02:25 12/06/19 02:35 12/06/19 06:00 Temperature 37.4 C Pulse Rate 114 H 109 H 113 H Respiratory Rate 20 20 22 H Blood Pressure 132/74 Pulse Oximetry 95 12/06/19 09:24 12/06/19 09:29 Temperature Pulse Rate 71 84 Respiratory Rate 18 20 Blood Pressure Pulse Oximetry 91 Intake/Output Intake/Output: Intake & Output 12/03/19 12/04/19 12/05/19 12/06/19 22:59 23:59 23:59 23:59 Intake Total 1960 1940 Output Total 9722 2950 Balance -540 -1010 Meds/Results Medications: Active Medications Generic Name Dose Route Start Last Admin Trade Name Freq PRN Reason Stop Dose Admin Acetaminophen 650 mg 12/03/19 11:46 Tylenol Tablet PO Q4H PRN Mild Pain (1-3) or Headache Albuterol 5 mg 12/01/19 20:00 12/06/19 09:21 Albuterol Sulf Neb 2.5mg/0.5ml INHALATION 5 mg Q6HRT IRIS Administration Dextrose 12.5 gm 12/01/19 23:12 Dextrose 50% Syringe IV PUSH PRN PRN Hypoglycemia Protocol Glimepiride 2 mg 12/02/19 08:00 12/03/19 09:32 Amaryl PO Not Given DAILY@0800 IRIS Glucagon 1 mg 12/01/19 23:12 Glucagon For Inj IM PRN PRN Hypoglycemia Protocol Glucose 15 gm 12/01/19 23:12 Glutose 15 PO PRN PRN Hypoglycemia Protocol Guaifenesin 600 mg 12/02/19 21:00 12/03/19 09:33 Mucinex 12 Hr Tab PO 600 mg Q12HR IRIS Administration Dextrose 1,000 mls @ 100 mls/hr 12/01/19 23:12 Dextrose 5% 1,000 Ml IVPB PRN PRN Hypoglycemia Protocol Metronidazole 500 mg in 100 mls @ 100 mls/hr 12/02/19 06:20 12/06/19 05:13 Flagyl 500 Mg/Iso Soln 100 Ml IVPB 100 mls/hr Q6HR IRIS Administration Levofloxacin/Dextrose 750 mg in 150 mls @ 100 mls/hr 12/03/19 18:00 12/05/19 19:28 Levaquin 750 Mg/D5w 150 Ml IVPB 100 mls/hr Q48H IRIS
--- NOTE | 2019-12-06 11:29 | PM.PNGS ---
Progress Note: A&P Assessment and Plan (1) Small bowel obstruction due to adhesions: Code(s): K56.50 - Intestinal adhesions [bands], unspecified as to partial versus complete obstruction Status: Acute Assessment and Plan: Patient has high-grade or complete small-bowel obstruction. This was not evident on her admitting CT scan but is pretty clear now. I discussed this with her. I have recommended going ahead with exploratory laparotomy for small-bowel obstruction. I explained that usually this involves freeing of adhesions but sometimes can result in bowel resection. It would be very unusual for a colostomy or ileostomy to be required. All questions were answered. The patient would like to proceed. (2) Acute on chronic renal failure: Qualifiers: Acute renal failure type: unspecified Chronic kidney disease stage: stage 3 (moderate) Qualified Code(s): N17.9 - Acute kidney failure, unspecified; N18.3 - Chronic kidney disease, stage 3 (moderate) Code(s): N17.9 - Acute kidney failure, unspecified; N18.9 - Chronic kidney disease, unspecified Status: Acute Assessment and Plan: Creatinine decreased from 2.6 yesterday to 2.4 today. Stable if not improving. Will continue fluid resuscitation with normal saline. Will add potassium as she has been losing potassium with the large amount of NG aspirate. (3) Protein-calorie malnutrition, moderate: Code(s): E44.0 - Moderate protein-calorie malnutrition Status: Acute Assessment and Plan: Will have PICC line placed for postoperative TPN. (4) Morbid obesity due to excess calories: Code(s): E66.01 - Morbid (severe) obesity due to excess calories Status: Chronic (5) COPD (chronic obstructive pulmonary disease): Qualifiers: COPD type: unspecified COPD Qualified Code(s): J44.9 - Chronic obstructive pulmonary disease, unspecified Code(s): J44.9 - Chronic obstructive pulmonary disease, unspecified Status: Chronic (6) DM type 2 (diabetes mellitus, type 2): Code(s): E11.9 - Type 2 diabetes mellitus without complications Status: Chronic (7) Benign essential hypertension: Code(s): I10 - Essential (primary) hypertension Status: Chronic Subjective Subjective Date/Time Seen: 12/06/19 11:29 Patient had upper GI small-bowel follow-through yesterday evening. This showed small bowel obstruction that was very high-grade. She had little bowel movement after that testing. This morning she is not in pain but still feels distended and has had no flatus or bowel movement. Plain films this morning show persistent small-bowel obstruction. Review of Systems Review of Systems: All systems reviewed & are unremarkable except as noted in HPI and below Constitutional: Constitutional: Denies headache(s) ENT: Denies headache(s) Cardiovascular: Cardiovascular: Denies chest pain and Denies dyspnea Respiratory: Respiratory: Denies cough and Denies dyspnea Gastrointestinal: Gastrointestinal: Reports as per HPI Neurologic: Denies confusion and Denies headache(s) Psychiatric: Psychiatric: Denies confusion Exam Const: General: comfortable and no acute distress; No confusion Orientation/consciousness: patient oriented x3 and No confusion Resp: Effort & Inspection: normal respiratory effort Auscultation: clear to auscultation bilaterally Cardio: Rate: regular rate Rhythm: regular rhythm GI: Inspection: distended, obesity and visible herniation (Reducible umbilical as before) GI Palp: Yes Soft to palpation, No Tenderness to palpation present (GI), No Guarding due to palpation present (GI) and No Rebound tenderness present Percussion: Yes tympanic to percussion Auscultation: Hypoactive bowel sounds present Neuro: General: patient oriented x3, no focal motor deficits and No confusion Extrem: General: no calf tenderness and no edema Psych: Affect: normal affect Insight: Good ins
[2019-12-06 12:23] LABS: Glucose Point of Care 234 (65-105)
--- NOTE | 2019-12-06 12:43 | WPDANESEPPF ---
Anes - Initial Pre Proc Eval Procedure: Operation Date: 12/06/19 15:00 Proposed Procedures p Exploratory Laparotomy for Small Bowel Obstruction - Justin Lucas MD Date/Time: 12/06/19 12:43 Surgeon: Mary Ann Ennis PA-C Pre Op Diagnosis: Pneumonia, diarrhea, dehydration, hyponatremia Patient Data Age: 79 Gender: F Height: 5 ft 6 in Weight: 104 kg Last Vital Signs Temp 99.4 F 12/06/19 06:00 Pulse 84 12/06/19 09:29 Resp 20 12/06/19 09:29 BP 132/74 12/06/19 06:00 Pulse Ox 91 12/06/19 09:24 Allergies Allergy/AdvReac Type Severity Reaction Status Date / Time iohexol Allergy Intermediate itchey Verified 12/01/19 18:00 throat and ears Cephalosporins Allergy Mild HIVES Verified 12/01/19 18:00 rofecoxib Allergy Mild HEADACHES Verified 12/01/19 18:00 clindamycin Allergy Unknown Unknown Verified 12/01/19 18:00 doxycycline Allergy Unknown Itching Verified 12/01/19 18:00 Penicillins Allergy Unknown Hives Verified 12/01/19 18:00 risedronate sodium Allergy Unknown eye Verified 12/01/19 18:00 inflammation Home Medications Medication Instructions Recorded Confirmed Type glimepiride 2 mg tablet 2 mg PO QAM #90 tablet 09/07/19 12/01/19 Rx levothyroxine 112 mcg tablet 112 mcg PO DAILY #90 tablet 09/07/19 12/01/19 Rx rosuvastatin 40 mg tablet 40 mg PO DAILY #90 tablet 11/14/19 12/01/19 Rx hydrochlorothiazide 12.5 mg tablet 12.5 mg PO DAILY tablet 11/24/19 12/01/19 History hydrocodone 5 mg-acetaminophen 325 1 tablet PO Q6H PRN #50 tablet 11/24/19 12/01/19 Rx mg tablet lisinopril 20 mg tablet 20 mg PO BID tablet 11/24/19 12/01/19 History trazodone 50 mg tablet 50 - 100 mg PO HS PRN tablet 11/24/19 12/01/19 History levofloxacin 500 mg tablet 500 mg PO DAILY #10 tablet 11/28/19 12/01/19 Rx albuterol sulfate 1 - 2 puff INHALATION Q6-8H PRN 12/01/19 12/01/19 History Laboratory Tests 12/05/19 12/05/19 12/05/19 18:26 20:43 20:43 WBC RBC Hgb Hct MCV MCH MCHC RDW Plt Count MPV D-Dimer Puncture Site ABG pH ABG pCO2 ABG pO2 ABG PO2/FiO2 Ratio ABG HCO3 ABG O2 Saturation ABG O2 Content ABG Base Excess A-a Gradient Oxyhemoglobin Carboxyhemoglobin Methemoglobin Reduced Hemoglobin Total Hemoglobin O2 Delivery Device O2 Liters/Min FiO2 Sodium 135 mmol/L L mmol/L (137-145) Potassium 3.4 mmol/L mmol/L (3.4-5.0) Chloride 89 mmol/L L mmol/L (98-107) Carbon Dioxide 35 mmol/L H mmol/L (22-30) BUN 49 mg/dL H mg/dL (7-17) Creatinine 2.60 mg/dL H mg/dL (0.7-1.0) Estim Creat Clear Calc 20 ml/min ml/min Estimated GFR 18 L (59 - ) Glucose 278 mg/dL H mg/dL (65-105) POC Capillary Glucose 233 mg/dl H mg/dl (65-105) Lactic Acid Calcium 7.9 mg/dL L mg/dL (8.4-10.2) Phosphorus 4.8 mg/dL H mg/dL (2.5-4.5) Magnesium 1.8 mg/dL mg/dL (1.6-2.3) Total Bilirubin 0.5 mg/dL mg/dL (0.2-1.3) AST 24 U/L U/L (14-36) ALT 17 U/L U/L (4-35) Alkaline Phosphatase 72 U/L U/L (38-126) Troponin I NT-Pro-B Natriuret Pep Total Protein 6.0 g/dL L g/dL (6.3-8.2) Albumin 3.2 g/dL L g/dL (3.5-5.1) Urine Color Urine Appearance Urine pH Ur Specific [place] Urine Protein Urine Glucose (UA) Urine Ketones Ur Blood (Man) Urine Nitrate Urine Bilirubin Urine Urobilinogen Leukocyte Esterase Rfl
--- NOTE | 2019-12-06 13:47 | PC.NURSE ---
To OR per bed.
[2019-12-06] MEDS: LACTATED RINGERS 1,000 ML 30 ML IV CONT ×2 (14:00→16:13)
--- NOTE | 2019-12-06 14:10 | PCDIET ---
Nutrition Follow-Up Complete: Inadequate Oral Intake as related to Diarrhea as evidenced by poor po intake reported and weight loss of 6 ibs in 1 week. 2 BM reported today. Adequate intake of at least 75% of meals/supplements Goal:Not able to progress towards goal. Continue with current goal Pt current nutrition is NPO. Nutrition recommendation: Agree Last recorded weight is 104 kg. Bowel Motility: Thursday, BM Labs Reviewed:Hgb 11.7, Hct 35.9 Meds Noted:Flagyl, Levo, Insulin, Zofran, KCL, Vanc Additional Notes: Pt with abdominal distention. NG to suction . Last PO intake was Thursday at 100%. Currently day three NPO. Recommend advancing diet by within 48 hrs or starting PPN with lipids at 120ml/hr if unable to advance diet. We will continue to follow every three days.
--- NOTE | 2019-12-06 14:36 | WPDANESEPPF ---
Anes - Initial Pre Proc Eval Procedure: Operation Date: 12/06/19 15:00 Proposed Procedures p Exploratory Laparotomy for Small Bowel Obstruction - Justin Lucas MD Date/Time: 12/06/19 14:36 Surgeon: Mary Ann Ennis PA-C Pre Op Diagnosis: Pneumonia, diarrhea, dehydration, hyponatremia Patient Data Age: 79 Gender: F Height: 1.68 m Weight: 104 kg Last Vital Signs Temp 36.6 C 12/06/19 14:06 Pulse 117 H 12/06/19 14:06 Resp 20 12/06/19 14:06 BP 125/67 12/06/19 14:06 Pulse Ox 94 12/06/19 14:06 Allergies Allergy/AdvReac Type Severity Reaction Status Date / Time iohexol Allergy Intermediate itchey Verified 12/06/19 14:13 throat and ears Cephalosporins Allergy Mild HIVES Verified 12/06/19 14:13 rofecoxib Allergy Mild HEADACHES Verified 12/06/19 14:13 clindamycin Allergy Unknown Unknown Verified 12/06/19 14:13 doxycycline Allergy Unknown Itching Verified 12/06/19 14:13 Penicillins Allergy Unknown Hives Verified 12/06/19 14:13 risedronate sodium Allergy Unknown eye Verified 12/06/19 14:13 inflammation Home Medications Medication Instructions Recorded Confirmed Type glimepiride 2 mg tablet 2 mg PO QAM #90 tablet 09/07/19 12/06/19 Rx levothyroxine 112 mcg tablet 112 mcg PO DAILY #90 tablet 09/07/19 12/06/19 Rx rosuvastatin 40 mg tablet 40 mg PO DAILY #90 tablet 11/14/19 12/06/19 Rx hydrochlorothiazide 12.5 mg tablet 12.5 mg PO DAILY tablet 11/24/19 12/06/19 History hydrocodone 5 mg-acetaminophen 325 1 tablet PO Q6H PRN #50 tablet 11/24/19 12/06/19 Rx mg tablet lisinopril 20 mg tablet 20 mg PO BID tablet 11/24/19 12/06/19 History trazodone 50 mg tablet 50 - 100 mg PO HS PRN tablet 11/24/19 12/06/19 History levofloxacin 500 mg tablet 500 mg PO DAILY #10 tablet 11/28/19 12/06/19 Rx albuterol sulfate 1 - 2 puff INHALATION Q6-8H PRN 12/01/19 12/06/19 History Laboratory Tests 12/05/19 12/05/19 12/05/19 18:26 20:43 20:43 WBC RBC Hgb Hct MCV MCH MCHC RDW Plt Count MPV D-Dimer Puncture Site ABG pH ABG pCO2 ABG pO2 ABG PO2/FiO2 Ratio ABG HCO3 ABG O2 Saturation ABG O2 Content ABG Base Excess A-a Gradient Oxyhemoglobin Carboxyhemoglobin Methemoglobin Reduced Hemoglobin Total Hemoglobin O2 Delivery Device O2 Liters/Min FiO2 Sodium 135 mmol/L L mmol/L (137-145) Potassium 3.4 mmol/L mmol/L (3.4-5.0) Chloride 89 mmol/L L mmol/L (98-107) Carbon Dioxide 35 mmol/L H mmol/L (22-30) BUN 49 mg/dL H mg/dL (7-17) Creatinine 2.60 mg/dL H mg/dL (0.7-1.0) Estim Creat Clear Calc 20 ml/min ml/min Estimated GFR 18 L (59 - ) Glucose 278 mg/dL H mg/dL (65-105) POC Capillary Glucose 233 mg/dl H mg/dl (65-105) Lactic Acid Calcium 7.9 mg/dL L mg/dL (8.4-10.2) Phosphorus 4.8 mg/dL H mg/dL (2.5-4.5) Magnesium 1.8 mg/dL mg/dL (1.6-2.3) Total Bilirubin 0.5 mg/dL mg/dL (0.2-1.3) AST 24 U/L U/L (14-36) ALT 17 U/L U/L (4-35) Alkaline Phosphatase 72 U/L U/L (38-126) Troponin I NT-Pro-B Natriuret Pep Total Protein 6.0 g/dL L g/dL (6.3-8.2) Albumin 3.2 g/dL L g/dL (3.5-5.1) Urine Color Urine Appearance Urine pH Ur Specific [place] Urine Protein Urine Glucose (UA) Urine Ketones Ur Blood (Man) Urine Nitrate Urine Bilirubin Urine Urobilinogen Leukocyte Esterase Rfl
[2019-12-06] MEDS: NEOSTIGMINE 1:1000 10 MG/10 ML VIAL 3 MG IV PUSH (16:35)
--- NOTE | 2019-12-06 16:37 | P.OP_ITS ---
Procedure Note - Detailed Date of procedure: 12/06/19 Pre-op diagnosis: Small bowel obstruction Small bowel obstruction Post-op diagnosis: other (Adynamic ileus) Procedure performed: Exploratory laparotomy Description of procedure: The patient was taken to surgery and induced into general anesthesia. The abdomen was prepped and draped. A midline incision was made starting above the umbilicus and then continuing down around the umbilical hernia and just below the umbilicus in the midline. The umbilical hernia was reduced. The hernia sac was excised. The sac was discarded. We opened the midline fascia. There was a small amount of ascites which was clear in the abdomen. There were multiple loops of dilated colon and small bowel. I eviscerated some of the dilated bowel and found some collapse bowel and the terminal ileum. I started proceeding from the terminal ileum retrograde to more proximal small bowel. I found a gradual transition into the dilated bowel but no evidence of an obstruction. No adhesiolysis was needed. There was no evidence of a band or transition point on the small bowel either. I ran the entire length of small bowel and fanned no other significant findings. I palpated the colon stomach liver and pelvis and found no other abnormalities other than a very dilated colon. I then milked small-bowel contents into the stomach to be evacuated per the NG tube. This was successful and we decompressed quite a bit of the small intestine this way. Having completed the exploration, I then placed the bowel back in the abdomen in its general anatomic position with the omentum positioned over the abdominal contents lichen apron. The midline fascia was closed with bidirectional running 1. PDS suture. The subcutaneous was closed with interrupted 3 0 Vicryl suture. The skin was loosely approximated with interrupted subcuticular 4 O Vicryl suture. The patient was awakened and extubated. She was taken to recovery in stable condition. Sponge and needle counts were correct x2. Estimated blood loss was 5 cc. Anesthesia: GETA Surgeon: Justin Lucas MD [employer] Service Cleaner: Trinidad RIVERA Estimated blood loss (mL): 5 Drains: Yes (NG tube, Quiroga catheter) Packing: No Pathology: none sent Complications: None Condition: stable Disposition: PACU Findings: No small-bowel obstruction, ileus.
[2019-12-06] MEDS: INSULIN HUMAN REGULAR (*BKC) 100 UNITS/ML 8 UNITS SUB-Q (16:55)
--- NOTE | 2019-12-06 20:30 | PC.NURSE ---
Patient arrived 18:10
--- NOTE | 2019-12-06 21:16 | PM.IMPN ---
Progress Note: A&P Assessment and Plan (1) Small bowel obstruction: Code(s): K56.609 - Unspecified intestinal obstruction, unspecified as to partial versus complete obstruction Status: Acute Assessment and Plan: Repeat KUB today with high-grade SOB. Dr. Lucas has recommended exploratory laparotomy for today. The pt is seen in pre-op holding. She reports that she is feeling better today although she admits to persistent abdominal distention. NG tube continues to drain opaque green fluid. Plan for exploratory laparotomy today with Dr. Lucas, general surgery recommendations and input are greatly appreciated Continue NG decompression Continue NPO diet with ice chips (2) Acute respiratory failure: Code(s): J96.00 - Acute respiratory failure, unspecified whether with hypoxia or hypercapnia Status: Acute Assessment and Plan: Pt developed hypoxia overnight while undergoing KUB. NG suction was clamped for the study and pt developed significant anxiety. She was treated with nebulizers as she has COPD at baseline. It is likely that her severe abdominal distention was contributing to her dyspnea. The pt reports that her dyspnea has improved significantly today. She no longer feels SOB. Venoud doppler ordered and pending. Will consider V/Q scan depending on the results of venous doppler. Continue scheduled nebulizers (3) Diarrhea: Qualifiers: Diarrhea type: unspecified type Qualified Code(s): R19.7 - Diarrhea, unspecified Code(s): R19.7 - Diarrhea, unspecified Status: Resolved Assessment and Plan: Patient completed 7 day course of Levaquin on 11/24/19 and an additional course of Levaquin from 11/28/19-12/01/19 for suspected right lower lobe pneumonia. Levaquin was discontinued 11/30. Patient was experiencing liquid brown stools which were initially thought to be antibiotic associated. Documentation suggested stool specimen was collected on 12/01/19 for C. diff toxin testing, but lab confirms no sample was received. Ultimately a sample was not able to be collected as all collection attempts had urine mixed with stool which, per [facility], would not be adequate. She denies any further episodes of diarrhea for 3 days. WBC count is trending down. Continue IV Flagyl Q6H. Initiated on 12/02/2019. Continue IV Levaquin at recommendation of Dr. Lucas. Initiated on 12/03/2019. Was started on PO vancomycin on 12/02 and received one dose. PO vanc discontinued as patient is NPO and additional antibiotic therapy is on board. Will discuss with Dr. Lucas. Hold probiotics as patient is NPO. Received probiotic x1 day on 12/02. Continue to monitor WBC and lactic acid serially (4) Acute on chronic renal failure: Qualifiers: Acute renal failure type: unspecified Chronic kidney disease stage: stage 3 (moderate) Qualified Code(s): N17.9 - Acute kidney failure, unspecified; N18.3 - Chronic kidney disease, stage 3 (moderate) Code(s): N17.9 - Acute kidney failure, unspecified; N18.9 - Chronic kidney disease, unspecified Status: Acute Assessment and Plan: Cr at admission elevated at 2.7 and suspected to be pre-renal due to volume depletion. Creatinine decreased to 1.5 on 12/03. Pt received 1L fluid bolus overnight. Bladder scan negative for urinary retention. Creatinine is 2.4 today. Continue IV fluid hydration Continue to monitor renal function (5) Electrolyte abnormality: Code(s): E87.8 - Other disorders of electrolyte and fluid balance, not elsewhere classified Status: Acute Assessment and Plan: Patient was hyponatremic at presentation, likely from dehydration due to GI losses. Sodium is 135 today. Potassium is decreased at 3.2. Magnesium was replaced and was 1.8 on 12/04. Hold HCTZ Pt to receive 40mEq IV potassium today with ongoing GI losses Will repeat BMP, magnesium, and phosphorous tomorrow and replace as indicated due to ongoing GI losses
[2019-12-06 23:50] LABS: Glucose Point of Care 205 (65-105)
[2019-12-07] VITALS (23 sets, daily range): BP systolic 109–154; BP diastolic 41–94; PULSE 65–124; RESP 20–25; TEMP 36.3–36.9; O2SAT 90–99
[2019-12-07] MEDS: ALBUTEROL SULFATE NEB 2.5 MG/0.5 ML INH 5 MG INHALATION ×4 (02:10→19:50)
[2019-12-07] MEDS: IPRATROPIUM BR 0.02% INH SOLN 0.5 MG/2.5 ML VIAL INHALATION ×4 (02:10→19:50)
[2019-12-07 03:53] LABS: Hematocrit 34.6 % (37.0-47.0); Hemoglobin 10.9 g/dL (12.0-15.0); Mean Corpuscular HGB Conc 31.5 g/dl (32-36); Mean Corpuscular Hemoglobin 30.9 pg (26-34); Mean Platelet Volume 9.9 fl (7.4-10.4); Platelet Count Result 334 k/mm3 (150-375); Red Blood Count 3.53 M/mm3 (4.2-5.4); Red Cell Distribution Width 14.2 % (11.5-14.5); White Blood Count 13.7 K/mm3 (4.5-10.0)
[2019-12-07 03:58] LABS: Lactic Acid 1.1 mmol/L (0.7-2.1)
[2019-12-07 04:18] LABS: Blood Urea Nitrogen 64 mg/dL (7-17); Calcium 7.2 mg/dL (8.4-10.2); Carbon Dioxide 35 mmol/L (22-30); Chloride 98 mmol/L (98-107); Estimated CRCL calculation 20 ml/min; Estimated Glomerular Filt Rate 19; Glucose 197 mg/dL (65-105); Magnesium 1.8 mg/dL (1.6-2.3); Phosphorus 4.6 mg/dL (2.5-4.5); Potassium 4.4 mmol/L (3.4-5.0); Sodium 137 mmol/L (137-145)
[2019-12-07] MEDS: KCL 40 MEQ/0.9% SOD CHL 1,000 ML 125 ML IV CONT (04:34)
[2019-12-07] MEDS: metroNIDAZOLE 500 MG/ISO 100ML 500 MG/100 ML BAG 100 MG IVPB ×4 (05:47→23:02)
[2019-12-07] MEDS: LEVOTHYROXINE SODIUM INJ 100 MCG/5 ML VIAL 56 MCG IV PUSH (05:50)
[2019-12-07 06:09] LABS: Glucose Point of Care 183 (65-105)
--- NOTE | 2019-12-07 07:14 | PM.PNGS ---
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 Now peers to be 0 primarily colonic ileus or Marielle's syndrome. Continue NG suction. Possible colonic decompression or neostigmine administration per Dr. Bright. (2) Morbid obesity due to excess calories: Code(s): E66.01 - Morbid (severe) obesity due to excess calories Status: Chronic (3) Acute on chronic renal failure: Qualifiers: Acute renal failure type: unspecified Chronic kidney disease stage: stage 3 (moderate) Qualified Code(s): N17.9 - Acute kidney failure, unspecified; N18.3 - Chronic kidney disease, stage 3 (moderate) Code(s): N17.9 - Acute kidney failure, unspecified; N18.9 - Chronic kidney disease, unspecified Status: Acute Assessment and Plan: Creatinine slightly higher today. Continue to monitor and administer fluids. Will give fluid bolus now. (4) Protein-calorie malnutrition, moderate: Code(s): E44.0 - Moderate protein-calorie malnutrition Status: Acute Assessment and Plan: Start Clinimix TPN is this could be several more days before she is able to eat. Discontinue IV fluids once TPN is started. (5) COPD (chronic obstructive pulmonary disease): Qualifiers: COPD type: unspecified COPD Qualified Code(s): J44.9 - Chronic obstructive pulmonary disease, unspecified Code(s): J44.9 - Chronic obstructive pulmonary disease, unspecified Status: Chronic (6) DM type 2 (diabetes mellitus, type 2): Code(s): E11.9 - Type 2 diabetes mellitus without complications Status: Chronic Assessment and Plan: Monitor and sliding scale. (7) Benign essential hypertension: Code(s): I10 - Essential (primary) hypertension Status: Chronic Subjective Subjective Date/Time Seen: 12/07/19 07:14 Post Op day: 1 Patient reports: no new complaints, feels better ([employer]), no flatus, no bowel movement and afebrile Review of Systems Review of Systems: All systems reviewed & are unremarkable except as noted in HPI and below Constitutional: Constitutional: Denies headache(s) ENT: Denies headache(s) Cardiovascular: Cardiovascular: Denies chest pain and Denies dyspnea Respiratory: Respiratory: Denies cough and Denies dyspnea Gastrointestinal: Gastrointestinal: Reports as per HPI Neurologic: Denies confusion and Denies headache(s) Psychiatric: Psychiatric: Denies confusion Exam Const: General: comfortable and no acute distress; No confusion Orientation/consciousness: patient oriented x3 and No confusion Resp: Effort & Inspection: normal respiratory effort Auscultation: clear to auscultation bilaterally Cardio: Rate: regular rate Rhythm: regular rhythm GI: Inspection: distended, incision (DRESSING DRY AND INTACT) and obesity GI Palp: Yes Soft to palpation (Protuberant), Yes Tenderness to palpation present (GI), No Guarding due to palpation present (GI) and No Rebound tenderness present Auscultation: Hypoactive bowel sounds present Neuro: General: patient oriented x3, no focal motor deficits and No confusion Extrem: General: no calf tenderness and no edema Psych: Affect: normal affect Insight: Good insight present (Psych) Judgement: Good judgement present (Psych) Objective Data Vital Signs Vital Signs: Vital Signs - 24 hr 12/06/19 08:00 12/06/19 09:24 12/06/19 09:29 Temperature Pulse Rate 105 H 71 84 Respiratory Rate 18 20 Blood Pressure Pulse Oximetry 91 12/06/19 12:00 12/06/19 13:45 12/06/19 14:06 Temperature 36.8 C 36.6 C Pulse Rate 109 H 113 H 117 H Respiratory Rate 18 20 Blood Pressure 140/77 125/67 Pulse Oximetry 93 94 12/06/19 16:13 12/06/19 16:15 12/06/19 16:25 Temperature 36.8 C Pulse Rate 114 H 112 H 95 Respiratory
[2019-12-07] MEDS: SODIUM CHLORIDE 0.9% IV 1,000 ML 125 ML IV CONT (08:05)
[2019-12-07] MEDS: SODIUM CHLORIDE 0.9% IV 1,000 ML 999 ML IV CONT (08:06)
[2019-12-07 08:15] LABS: Basophils Absolute Auto 0.1 K/mm3 (0.0-0.1); Basophils Percent Auto 0.4 % (0.2-1.2); Eosinophils Percent Auto 0.1 % (0-4.4); Hematocrit 35.2 % (37.0-47.0); Immature Granulocyte Absolute 0.16 K/mm3 (0.00-0.031); Immature Granulocyte Percent A 1.2 % (0-0.5); Lymphocytes Absolute Auto 0.41 K/mm3 (0.9-3.2); Lymphocytes Percent Auto 3.1 % (18.3-44.2); Mean Corpuscular HGB Conc 31.3 g/dl (32-36); Mean Corpuscular Volume 99.2 fl (80-100); Mean Platelet Volume 9.9 fl (7.4-10.4); Monocytes Absolute Auto 0.9 K/mm3 (0.1-0.6); Neutrophils Absolute Auto 11.6 K/mm3 (1.3-6.7); Neutrophils Percent Auto 88.2 % (45.5-73.1); Platelet Count Result 255 k/mm3 (150-375); Red Blood Count 3.55 M/mm3 (4.2-5.4); Red Cell Distribution Width 14.2 % (11.5-14.5); White Blood Count 13.1 K/mm3 (4.5-10.0)
[2019-12-07 08:28] LABS: Alanine Aminotransferase 14 U/L (4-35); Albumin Level 2.7 g/dL (3.5-5.1); Alkaline Phosphatase 51 U/L (38-126); Aspartate Amino Transferase 26 U/L (14-36); Bilirubin,Total 0.4 mg/dL (0.2-1.3); Blood Urea Nitrogen 66 mg/dL (7-17); Calcium 6.9 mg/dL (8.4-10.2); Carbon Dioxide 35 mmol/L (22-30); Chloride 98 mmol/L (98-107); Estimated CRCL calculation 20 ml/min; Estimated Glomerular Filt Rate 18; Glucose 188 mg/dL (65-105); Magnesium 1.9 mg/dL (1.6-2.3); Potassium 4.4 mmol/L (3.4-5.0); Sodium 139 mmol/L (137-145)
[2019-12-07 08:32] LABS: Partial Thromboplastin Time 24.5 SECONDS (22.3-36.8)
--- NOTE | 2019-12-07 08:34 | WPDANESPN ---
Anes - Prog Note Post-Op Date/Time: 12/07/19 08:34 Cardiovascular status: normal Respiratory status: other (NC) Airway patency: baseline and other (NG) Mental status: baseline Post-Op hydration status: normal Vital Signs: Last Vital Signs Temp 98.0 F 12/07/19 04:00 Pulse 113 H 12/07/19 08:22 Resp 20 12/07/19 08:22 BP 113/41 L 12/07/19 04:00 Pulse Ox 93 12/07/19 08:13 I/O: Intake & Output 12/06/19 12/07/19 12/07/19 23:59 07:59 15:59 Intake Total 590 1100 Output Total 2000 600 Balance -1410 500 Laboratory Tests 12/07/19 07:56 12/06/19 12/06/19 12/06/19 08:45 12:14 23:48 WBC RBC Hgb Hct MCV MCH MCHC RDW Plt Count MPV Immature Gran % (Auto) Neut % (Auto) Lymph % (Auto) [place] % (Auto) Eos % (Auto) Baso % (Auto) Lymph # (Auto) [place] # (Auto) Eos # (Auto) Baso # (Auto) Abs Immat Gran (auto) Absolute Neuts (auto) Absolute Nucleated RBC Nucleated RBC % APTT Sodium Potassium Chloride Carbon Dioxide BUN Creatinine Estim Creat Clear Calc Estimated GFR Glucose POC Capillary Glucose 234 H 205 H Lactic Acid Calcium Phosphorus Magnesium Transferrin Total Bilirubin AST ALT Alkaline Phosphatase Total Protein Albumin Blood Type A Positive Antibody Screen Negative 12/07/19 12/07/19 12/07/19 03:34 03:34 03:34 WBC 13.7 H RBC 3.53 L Hgb 10.9 L Hct 34.6 L MCV 98.0 MCH 30.9 MCHC 31.5 L RDW 14.2 Plt Count 334 MPV 9.9 Immature Gran % (Auto) Neut % (Auto) Lymph % (Auto) [place] % (Auto) Eos % (Auto) Baso % (Auto) Lymph # (Auto) [place] # (Auto) Eos # (Auto) Baso # (Auto) Abs Immat Gran (auto) Absolute Neuts (auto) Absolute Nucleated RBC Nucleated RBC % APTT Sodium 137 Potassium 4.4 Chloride 98 Carbon Dioxide 35 H BUN 64 H D Creatinine 2.50 H Estim Creat Clear Calc 20 Estimated GFR 19 L Glucose 197 H POC Capillary Glucose Lactic Acid 1.1 Calcium 7.2 L Phosphorus 4.6 H Magnesium 1.8 Transferrin Total Bilirubin AST ALT Alkaline Phosphatase Total Protein Albumin Blood Type Antibody Screen 12/07/19 12/07/19 12/07/19 06:04 07:56 07:56 WBC Pending RBC Pending Hgb Pending Hct Pending MCV Pending MCH Pending MCHC Pending RDW Pending Plt Count Pending MPV Pending Immature Gran % (Auto) Pending Neut % (Auto) Pending Lymph % (Auto) Pending [place] % (Auto) Pending Eos % (Auto) Pending Baso % (Auto) Pending Lymph # (Auto) Pending [place] # (Auto) Pending Eos # (Auto) Pending Baso # (Auto) Pending Abs Immat Gran (auto) Pending Absolute Neuts (auto) Pending Absolute Nucleated RBC Pending Nucleated RBC % Pending APTT 24.5 Sodium Potassium Chloride Carbon Dioxide BUN Creatinine Estim Creat Clear Calc Estimated GFR Glucose POC Capillary Glucose 183 H Lactic Acid Calcium Phosphorus Magnesium Transferrin Total Bilirubin AST ALT Alkaline Phosphatase Total Protein Albumin Blood Type Antibody Screen 12/07/19 07:56 WBC RBC Hgb Hct MCV MCH MCHC RDW Plt Count MPV Immature Gran % (Auto) Neut % (Auto) Lymph % (Auto) [place] % (Auto) Eos % (Auto) Baso % (Auto) Lymph # (Auto) [place] # (Auto) Eos # (Auto) Baso # (Auto) Abs Immat Gran (auto) Absolute Neuts (auto) Absolute Nucleated RBC Nucleated RBC % APTT Sodium 139 Potassium 4.4 Chloride 98 Carbon Dioxide 35 H BUN 66 H Creatinine 2.60 H Estim Creat Clear Calc 20 Estimated GFR 18 L Glucose 188 H POC Capillary Glucose Lactic Acid Calcium 6.9 L Phosphorus Magnesium 1.9 Transferrin Pending Total Bilirubin 0.4 AST 26
[2019-12-07 08:36] LABS: Transferrin 147 mg/dL (206-381)
--- NOTE | 2019-12-07 08:41 | PM.IMPN ---
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 Lucas. 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 The pt does have a hx of colonic ileus in 2017 which was treated by decompressive colonoscopy by Dr. Bright who is also on board. Continue NPO with ice chips Dr. Lucas has recommended Clinimix TPN since pt may require NPO for an extended duration. Plan to discontinue IV fluids once Clinimix is initiated Will await recommendations from Dr. Bright (2) Asthma: Code(s): J45.909 - Unspecified asthma, uncomplicated Status: Acute Assessment and Plan: Pt reports hx of asthma that was well-controlled until her recent episode of pneumonia. She reports increased inhaler and nebulizer use. Suspect that asthma is contributing to her current dyspnea as she has expiratory wheezes on physical exam. Continue scheduled nebulizers (3) Small bowel obstruction: Code(s): K56.609 - Unspecified intestinal obstruction, unspecified as to partial versus complete obstruction Status: Ruled-out Assessment and Plan: Repeat KUB 12/05 with high-grade SOB. Pt is POD#1 s/p exploratory laparotomy which revealed no evidence of SBO. 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 NG tube continues to drain opaque green fluid. (4) Acute respiratory failure: Code(s): J96.00 - Acute respiratory failure, unspecified whether with hypoxia or hypercapnia Status: Acute Assessment and Plan: Pt developed hypoxia overnight 12/04 while undergoing KUB. NG suction was clamped for the study and pt developed significant anxiety. She was treated with nebulizers as she has asthma at baseline (per pt, she reports no hx of COPD). It is likely that her severe abdominal distention and obesity are contributing to her dyspnea. The pt reports SOB has improved significantly today. CXR with evidence of atelectasis. Venous doppler with no evidence of DVT. CXR yesterday with evidence of atelectasis. Will add incentive spirometry and chest physiotherapy Will add PT/OT and stress the importance of increased activity including OOB to chair for meals as immobility is likely contributing to atelectasis Continue scheduled nebulizers Repeat CXR tomorrow AM Wean oxygen as tolerated (5) Diarrhea: Qualifiers: Diarrhea type: unspecified type Qualified Code(s): R19.7 - Diarrhea, unspecified Code(s): R19.7 - Diarrhea, unspecified Status: Resolved Assessment and Plan: Patient completed 7 day course of Levaquin on 11/24/19 and an additional course of Levaquin from 11/28/19-12/01/19 for suspected right lower lobe pneumonia. Levaquin was discontinued 11/30. Patient was experiencing liquid brown stools which were initially thought to be antibiotic associated. Documentation suggested stool specimen was collected on 12/01/19 for C. diff toxin testing, but lab confirms no sample was received. Ultimately a sample was not able to be collected as all collection attempts had urine mixed with stool which, per [facility], would not be adequate. She denies any further episodes of diarrhea for 3 days. She denies flatus or BM so repeat stool culture has not been obtained. She has leukocytosis, suspect mild increase may be due to post-op stress. Continue IV Flagyl Q6H. Initiated on 12/02/2019. Continue IV Levaquin at recommendation of Dr. Lucas. Initiated on 12/03/2019. Pt was initiated on PO vancomycin on 12/02 and received one dose. PO vanc discontinued due to NPO status. Discussed with Dr. Bright and Dr. Lucas and will resume PO vancomycin. Administration will require intermittent NG tube clamping. Continue to monitor WBC and lactic acid serially (6) Acute on chronic renal failure: Qualifiers: Acute renal failure type: uns
[2019-12-07 09:16] LABS: Platelet Estimate Adequate (Adequate)
[2019-12-07 09:17] LABS: Hypochromasia 1+ (NORMAL)
[2019-12-07 09:18] LABS: Acanthocytes 1+ (NORMAL); Ovalocytes 1+ (NORMAL)
--- NOTE | 2019-12-07 09:46 | PCDIET ---
Addendum entered by Sonia Dean RD, LDN 12/07/19 11:52: spoke with EDWIN Shelton and we will leave rate at 40 ml/hr adding Lipids which will provide 1182 kcals and 48 gms protein. Goal rate recommended 60 ml/hr providing 1522 kcals and 72 gms protein. Addendum entered by Pascale Bennett RD, LDN 12/07/19 10:28: Recommend Clinimix at 20mls increasing by 10mls each day, reaching goal rate of 50mls Q24hrs. Low rate recommend as pt NPO since Thursday afternoon and electrolytes are borderline. Original Note: Nutrition Follow-Up Complete: Inadequate Oral Intake as related to Diarrhea as evidenced by poor po intake reported and weight loss of 6 ibs in 1 week. 2 BM reported today. ADequate intake of at least 75% of meals/supplements Goal not met. Current Pt Nutition order: NPO Except Ice chips Nutrition recommendation: Recommend Clinimix Amino Acid 5%/D15%/Electrolytes/Ca at 20mls/hr increasing 10mls Q4hrs, as tolerated, to goal rate of 50mls/hr Q24hrs. Addition of 250mls of 20% lipids at 10mls/hr. Provides 1352 kcals, 60g pro and 1450mls total volume over 24hrs. Low rate recommend as pt NPO since Thursday afternoon and electrolytes are borderline. 5mls multivitamin appropriate. Last recorded weight is 104 kg. Bowel Motility: +BM 12/05 Labs Reviewed: Phosphours(4.6), Na(139), K(4.4), Mg(1.9), Corrected Ca(7.94) Alb(2.7), GFR(18), BUN(66), Cr(2.6), Glu(188) Meds Noted:flagyl, Lovenox, Zofran, Vancomycin Additional Notes: Pt states no abdominal discomfort. Did not provide additional information. Nurse states pt is frequently asking for ice chips. RD will monitor T/F.
[2019-12-07] MEDS: ENOXAPARIN 30 MG/0.3 ML SYRINGE SUB-Q (11:04)
[2019-12-07] MEDS: FAT EMULSIONS IV 20% 250 ML 20.8 ML IVPB (11:47)
--- NOTE | 2019-12-07 11:56 | PCNSR ---
On 12/07/19, the student, Pascale Bennett, provided care and completed [facility] documentation on this patient. I have reviewed the student's documentation and agree with the findings.
[2019-12-07] MEDS: INSULIN ASPART (*BKC) 100 UNITS/ML SUB-Q ×2 (12:07→17:54)
[2019-12-07 12:20] LABS: Glucose Point of Care 210 (65-105)
--- NOTE | 2019-12-07 13:42 | WPDGIPROGNO ---
Subjective Date/time seen: 12/07/19 13:42 The patient states that she is feeling better. No flatus or bowel movement. Tolerated surgery spry sling well. The patient is in no acute distress. Heart rate rhythm regular. Lungs decreased breath sounds bilaterally with rhonchi. Abdomen is slightly distended, but soft. Bowel sounds absent. HEENT an reveals the NG tube in the naris. Impression: Small bowel obstruction versus pseudo-obstruction/ileus. This is certainly exacerbated by underlying hypothyroidism, undiagnosed diabetic neuropathy, collagen vascular disease, and medications. Leukocytosis. May be secondary to above. Recent pneumonia. History of adenomatous colon polyps. Last colonoscopy was September of 2018. Diabetes mellitus. Hypertension. Hyperlipidemia. Chronic kidney disease. COPD. Hypothyroidism. Rheumatoid arthritis. Next and history of deep venous thrombosis. Obesity. Recommendation: Repeat KUB and chest x-ray in a.m.. Recheck laboratory studies. Will give a trial of Reglan. This is of marginal benefit. Erythromycin and neostig.? Increase activity. Continue PPI. C diff toxin assay still pending. Objective Data Vital Signs Vital Signs: Vital Signs - 24 hr 12/06/19 13:45 12/06/19 14:06 12/06/19 16:13 Temperature 36.8 C 36.6 C 36.8 C Pulse Rate 113 H 117 H 114 H Respiratory Rate 18 20 24 H Blood Pressure 140/77 125/67 180/70 H Pulse Oximetry 93 94 89 L 12/06/19 16:15 12/06/19 16:25 12/06/19 16:40 Temperature Pulse Rate 112 H 95 99 Respiratory Rate 32 H 32 H 34 H Blood Pressure 106/76 107/77 Pulse Oximetry 95 96 99 12/06/19 16:55 12/06/19 17:10 12/06/19 17:15 Temperature Pulse Rate 94 101 H 92 Respiratory Rate 34 H 33 H 36 H Blood Pressure 150/68 H 144/62 H Pulse Oximetry 100 100 12/06/19 17:25 12/06/19 17:40 12/06/19 17:55 Temperature 36.8 C Pulse Rate 95 92 100 Respiratory Rate 32 H 15 33 H Blood Pressure 128/64 127/57 L 113/60 Pulse Oximetry 98 97 97 12/06/19 18:00 12/06/19 18:10 12/06/19 20:00 Temperature 36.6 C 36.7 C Pulse Rate 105 H 105 H 103 H Respiratory Rate 22 H 20 Blood Pressure 126/55 L 129/57 L Pulse Oximetry 95 97 12/06/19 21:50 12/06/19 22:00 12/06/19 22:02 Temperature Pulse Rate 102 H 107 H 102 H Respiratory Rate 22 H 22 H 22 H Blood Pressure Pulse Oximetry 93 94 12/06/19 22:13 12/06/19 23:45 12/07/19 00:00 Temperature 36.9 C 36.9 C Pulse Rate 108 H 112 H 112 H Respiratory Rate 21 H 21 H Blood Pressure 124/52 L 124/52 L Pulse Oximetry 97 97 12/07/19 02:00 12/07/19 02:10 12/07/19 02:18 Temperature Pulse Rate 111 H 107 H 111 H Respiratory Rate 20 20 Blood Pressure Pulse Oximetry 12/07/19 04:00 12/07/19 06:00 12/07/19 08:00 Temperature 36.7 C Pulse Rate 110 H 117 H 114 H Respiratory Rate 20 Blood Pressure 113/41 L Pulse Oximetry 99 12/07/19 08:08 12/07/19 08:13 12/07/19 08:22 Temperature Pulse Rate 114 H 113 H Respiratory Rate 20 20 Blood Pressure Pulse Oximetry 93 12/07/19 10:00 12/07/19 12:00 12/07/19 13:08 Temperature 36.7 C Pulse Rate 110 H 113 H 115 H Respiratory Rate 22 H Blood Pressure 124/55 L Pulse Oximetry 97 Intake/Output Intake/Output: Intake & Output 12/04/19 12/05/19 12/06/19 12/07/19 23:59 23:59 23:59 23:59 Intake Total 2110 2730 2620 Output Total 2500 4950 1700 Balance -390 -2220 920 Meds/Results Medications: Active Medications Generic Name Dose Route Start Last Admin Trade Name Freq PRN Reason Stop Dose Admin Acetaminophen 650 mg 12/03/19 11:46 Tylenol Tablet PO Q4H PRN Mild Pain (1-3) or Headache Albuterol 5 mg 12/01/19 20:00 12/07/19 08:07 Albuterol Sulf Neb 2.5mg/0.5ml INHALATION 5 mg Q6HRT IRIS Administration Dextrose 12.5 gm 12/01/19 23:12 Dextrose 50% Syringe IV PUSH PRN PRN Hypoglycemia Protocol Enoxaparin Sodium 30 mg 12/07/19 09:00 0
[2019-12-07 16:04] LABS: Phosphorus 4.2 mg/dL (2.5-4.5)
[2019-12-07 16:13] LABS: Thyroid Stimulating Hormone 0.473 uIU/mL (0.465-4.680)
[2019-12-07 16:34] LABS: CRP 17.9 mg/dL (<1.0)
[2019-12-07 17:02] LABS: Folic Acid > 20.0 ng/mL (2.76->20)
[2019-12-07 17:12] LABS: Glucose Point of Care 261 (65-105)
[2019-12-07] MEDS: VANCOMYCIN ORAL 125 MG/2.5 ML SYRUP PO ×2 (17:54→23:03)
[2019-12-07] MEDS: PANTOPRAZOLE SODIUM IV 40 MG VIAL IV PUSH (20:36)
[2019-12-07 22:38] LABS: Total Protein Urine Random 31 mg/dL
[2019-12-07 23:04] LABS: Sodium Urine Random < 5 meq/L
[2019-12-07 23:47] LABS: Glucose Point of Care 260 (65-105)
[2019-12-08] VITALS (23 sets, daily range): BP systolic 119–163; BP diastolic 52–76; PULSE 106–121; RESP 18–26; TEMP 36–36.6; O2SAT 92–99; BMI 10.0
[2019-12-08] MEDS: FAT EMULSIONS IV 20% 250 ML 20.8 ML IVPB (00:46)
[2019-12-08] MEDS: ALBUTEROL SULFATE NEB 2.5 MG/0.5 ML INH 5 MG INHALATION ×4 (01:22→19:44)
[2019-12-08] MEDS: IPRATROPIUM BR 0.02% INH SOLN 0.5 MG/2.5 ML VIAL INHALATION ×4 (01:22→19:44)
[2019-12-08 05:15] LABS: Hematocrit 31.7 % (37.0-47.0); Hemoglobin 9.9 g/dL (12.0-15.0); Mean Corpuscular HGB Conc 31.2 g/dl (32-36); Mean Corpuscular Hemoglobin 31.1 pg (26-34); Mean Corpuscular Volume 99.7 fl (80-100); Mean Platelet Volume 9.8 fl (7.4-10.4); Platelet Count Result 295 k/mm3 (150-375); Red Blood Count 3.18 M/mm3 (4.2-5.4); Red Cell Distribution Width 14.3 % (11.5-14.5); White Blood Count 14.8 K/mm3 (4.5-10.0)
[2019-12-08 05:32] LABS: Alanine Aminotransferase 15 U/L (4-35); Albumin Level 2.5 g/dL (3.5-5.1); Alkaline Phosphatase 45 U/L (38-126); Aspartate Amino Transferase 31 U/L (14-36); Bilirubin,Total 0.3 mg/dL (0.2-1.3); Blood Urea Nitrogen 75 mg/dL (7-17); Carbon Dioxide 32 mmol/L (22-30); Chloride 98 mmol/L (98-107); Estimated CRCL calculation 20 ml/min; Estimated Glomerular Filt Rate 18; Glucose 284 mg/dL (65-105); Magnesium 1.9 mg/dL (1.6-2.3); Phosphorus 3.8 mg/dL (2.5-4.5); Potassium 4.3 mmol/L (3.4-5.0); Sodium 134 mmol/L (137-145)
[2019-12-08 05:45] LABS: Triglycerides 234 mg/dL (<150)
[2019-12-08] MEDS: metroNIDAZOLE 500 MG/ISO 100ML 500 MG/100 ML BAG 100 MG IVPB ×4 (05:48→23:14)
[2019-12-08] MEDS: LEVOTHYROXINE SODIUM INJ 100 MCG/5 ML VIAL 56 MCG IV PUSH (05:49)
[2019-12-08] MEDS: VANCOMYCIN ORAL 125 MG/2.5 ML SYRUP PO ×4 (05:49→23:14)
[2019-12-08 06:27] LABS: Glucose Point of Care 289 (65-105)
--- NOTE | 2019-12-08 07:23 | PC.NURSE ---
15b beat run of VTACH reported to DR. Kasper. Patient asymptomatic.
[2019-12-08] MEDS: INSULIN ASPART (*BKC) 100 UNITS/ML SUB-Q ×3 (08:50→18:07)
[2019-12-08] MEDS: PANTOPRAZOLE SODIUM IV 40 MG VIAL IV PUSH ×2 (08:52→20:12)
[2019-12-08] MEDS: ENOXAPARIN 30 MG/0.3 ML SYRINGE SUB-Q (08:52)
--- NOTE | 2019-12-08 08:52 | PM.IMPN ---
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 Lucas. 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 The pt does have a hx of colonic ileus in 2017 which was treated by decompressive colonoscopy by Dr. Bright who is also on board. She has no complaints of abdominal pain, nausea, or vomiting but has not passed flatus or BM. Continue NPO with ice chips Continue NG tube since pt has not passed flatus or BM. NG with slight red discoloration in the canister but now draining light green/yellow. Likely due to traumatic NG insertion due to multiple attempts required for placement. Will continue to monitor. Dr. Lucas has recommended Clinimix TPN since pt may require NPO for an extended duration. Appreciate recommendations. Discussed with Lyly, [employer] and pt still appears clinically dehydrated. Will start IV fluids at 50ml/hr. Continued recommendations from Dr. Orellana greatly appreciated (2) Asthma: Code(s): J45.909 - Unspecified asthma, uncomplicated Status: Acute Assessment and Plan: Pt reports hx of asthma that was well-controlled until her recent episode of pneumonia. She reports recent increased inhaler and nebulizer use. Suspect that asthma is contributing to her current dyspnea as she has expiratory wheezes in additional to rhonchi on physical exam. Oxygen requirements have decreased to 2.5 L today. Continue scheduled nebulizers Will add IV solumedrol 40mg QD for acute asthma exacerbation Continue IS and chest physiotherapy Pt needs to get up with PT and increase activity (3) Small bowel obstruction: Code(s): K56.609 - Unspecified intestinal obstruction, unspecified as to partial versus complete obstruction Status: Ruled-out Assessment and Plan: Repeat KUB 12/05 with high-grade SOB. Pt is POD#2 s/p exploratory laparotomy which revealed no evidence of SBO. 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 (4) Acute respiratory failure: Code(s): J96.00 - Acute respiratory failure, unspecified whether with hypoxia or hypercapnia Status: Acute Assessment and Plan: Pt developed hypoxia overnight 12/04 while undergoing KUB. NG suction was clamped for the study and pt developed significant anxiety. She was treated with nebulizers as she has asthma at baseline (per pt, she reports no hx of COPD). Repeat CXR this AM grossly unchanged with atelectasis. Venous doppler with no evidence of DVT. I suspect that acute asthma exacerbation, atelectasis, and significant abdominal distention with immobility are contributing to her dyspnea. She has rhonchi and expiratory wheezes to auscultation without rales. O2 requirements are decreasing. Will add PT/OT and stress the importance of increased activity including OOB to chair for meals as immobility is likely contributing to atelectasis Continue scheduled nebulizers Continue chest physiotherapy and IS Wean oxygen as tolerated Will add IV solumedrol for acute asthma exacerbation (5) Diarrhea: Qualifiers: Diarrhea type: unspecified type Qualified Code(s): R19.7 - Diarrhea, unspecified Code(s): R19.7 - Diarrhea, unspecified Status: Resolved Assessment and Plan: Patient completed 7 day course of Levaquin on 11/24/19 and an additional course of Levaquin from 11/28/19-12/01/19 for suspected right lower lobe pneumonia. PO levaquin was discontinued 11/30. Patient was experiencing liquid brown stools which were initially thought to be antibiotic associated. Documentation suggested stool specimen was collected on 12/01/19 for C. diff toxin testing, but lab confirms no sample was received. Ultimately a sample was not able to be collected as all collection attempts had urine mixed with stool which, per [facility], would not be adequa
--- NOTE | 2019-12-08 09:39 | PM.PNGS ---
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 No obstruction found on exploratory laparotomy. Incision looks good today. PT/OT working with the patient and encouraged increased activity. Up to chair and ambulating today. Continue IS use. Consistent with colonic ileus or Marielle's syndrome. GI following and could consider colonic decompression. Neostigmine administration may be a concern with her current respiratory status and asthma exacerbation. Management per Hospitalist and GI. (2) Morbid obesity due to excess calories: Code(s): E66.01 - Morbid (severe) obesity due to excess calories Status: Chronic (3) Acute on chronic renal failure: Qualifiers: Acute renal failure type: unspecified Chronic kidney disease stage: stage 3 (moderate) Qualified Code(s): N17.9 - Acute kidney failure, unspecified; N18.3 - Chronic kidney disease, stage 3 (moderate) Code(s): N17.9 - Acute kidney failure, unspecified; N18.9 - Chronic kidney disease, unspecified Status: Acute Assessment and Plan: Creatinine 2.6 today. Discussed with Hospitalist. TPN only at 40 mL/hr. Could benefit from added IV fluids. Continue to monitor. Management per Hospitalist. (4) Protein-calorie malnutrition, moderate: Code(s): E44.0 - Moderate protein-calorie malnutrition Status: Acute Assessment and Plan: Continue Clinimix TPN. (5) COPD (chronic obstructive pulmonary disease): Qualifiers: COPD type: unspecified COPD Qualified Code(s): J44.9 - Chronic obstructive pulmonary disease, unspecified Code(s): J44.9 - Chronic obstructive pulmonary disease, unspecified Status: Chronic (6) DM type 2 (diabetes mellitus, type 2): Code(s): E11.9 - Type 2 diabetes mellitus without complications Status: Chronic Assessment and Plan: Monitor and sliding scale. (7) Benign essential hypertension: Code(s): I10 - Essential (primary) hypertension Status: Chronic Additional Plan Discussed plan of care and patient's case with Dr. Lucas today. Subjective Subjective Date/Time Seen: 12/08/19 09:39 Patient reports: no new complaints, no flatus, no bowel movement and shortness of breath Interval history: Patient reports feeling better today. Denies pain. Reports shortness of breath but improved. Denies nausea or vomiting. No flatus or BM. No other significant complaints at this time. Review of Systems Review of Systems: All systems reviewed & are unremarkable except as noted in HPI and below Exam Const: General: comfortable, no acute distress, awake and Physically active Nutritional Appearance: obese Orientation/consciousness: patient oriented x3 Resp: Effort & Inspection: able to speak in complete sentences and tachypneic Auscultation: rhonchi and wheezes Cardio: Rate: regular rate Rhythm: regular rhythm GI: Inspection: distended, obesity and other (Abdominal incision clean/dry/intact, no signs of infection/drainage) GI Palp: Yes Soft to palpation, No Tenderness to palpation present (GI), No Guarding due to palpation present (GI), No Rigid due to palpation and No Rebound tenderness present Auscultation: absent bowel sounds Skin: General skin exam: normal color Neuro: General: moves all extremities and no focal motor deficits Extrem: General: no calf tenderness and no edema Psych: Mental Status: mental status grossly normal Affect: normal affect Thought process: Normal thought process present Insight: Good insight present (Psych) Judgement: Good judgement present (Psych) Objective Data Vital Signs Vital Signs: Vital Signs - 24 hr 12/07/19 10:00 12/07/19 12:00 12/07/19 13:08 Temperature 36.7 C Pulse Rate 110 H 113 H 115 H Respiratory Rate 22 H Blood Pressure 124/55 L Pulse Oximetry 97 97 12/07/19 14:00
[2019-12-08] MEDS: SODIUM CHLORIDE 0.9% IV 1,000 ML 50 ML IV CONT ×2 (10:16→15:18)
[2019-12-08] MEDS: methylPREDNISolone SOD SUCC 40 MG VIAL IV PUSH (10:24)
[2019-12-08 12:13] LABS: Creatinine Urine 157.9 mg/dL
--- NOTE | 2019-12-08 14:23 | WPDGIPROGNO ---
Subjective Date/time seen: 12/08/19 14:23 This very pleasant lady's having no abdominal pain. No flatus or bowel movement. She has increasing shortness of breath. Heart rate rhythm regular. Lungs reveal decreased breath sounds bilaterally with rhonchi and rales. Abdomen is distended. The abdomen is soft. I do hear some bowel sounds. Extremities were without significant edema. Impression: Small bowel obstruction versus pseudo-obstruction/ileus. This is certainly exacerbated by underlying hypothyroidism, undiagnosed diabetic neuropathy, collagen vascular disease, postop and medications? Leukocytosis. May be secondary to above. Increasing shortness of breath. This may be secondary underlying atelectasis/COPD. Recent pneumonia. History of adenomatous colon polyps. Last colonoscopy was September of 2018. Diabetes mellitus. Hypertension. Hyperlipidemia. Chronic kidney disease. COPD. Hypothyroidism. Rheumatoid arthritis. DVT by history. Obesity. Recommendation: To collect suppositories b.i.d.. Will do a trial Reglan. This may be a marginal benefit. Erythromycin at this time is contraindicated in view of the Levaquin and Zofran use. Neostigmine use of concern due to underlying respiratory status. Recommend pulmonary consultation. VQ scan ordered by hospitalist. Will give Dulcolax suppositories b.i.d.. Like to increase ambulation. Recheck KUB in the morning. Objective Data Vital Signs Vital Signs: Vital Signs - 24 hr 12/07/19 14:36 12/07/19 16:00 12/07/19 18:00 Temperature 36.4 C L Pulse Rate 113 H 124 H 65 Respiratory Rate 20 25 H Blood Pressure 154/94 H Pulse Oximetry 90 12/07/19 19:50 12/07/19 19:57 12/07/19 20:00 Temperature 36.3 C L 36.3 C L Pulse Rate 111 H 112 H 113 H Respiratory Rate 20 24 H 22 H Blood Pressure 109/55 L 143/93 H Pulse Oximetry 95 99 94 12/07/19 20:01 12/07/19 22:00 12/08/19 00:00 Temperature 36.0 C L Pulse Rate 111 H 114 H 113 H Respiratory Rate 20 22 H Blood Pressure 139/57 L Pulse Oximetry 94 12/08/19 01:22 12/08/19 02:00 12/08/19 03:52 Temperature 36.2 C L Pulse Rate 114 H 111 H 116 H Respiratory Rate 22 H 18 Blood Pressure 138/57 L Pulse Oximetry 94 12/08/19 04:00 12/08/19 06:00 12/08/19 08:00 Temperature 36.3 C L Pulse Rate 108 H 114 H 117 H Respiratory Rate 26 H Blood Pressure 144/54 H Pulse Oximetry 94 94 12/08/19 08:25 12/08/19 08:37 12/08/19 10:00 Temperature Pulse Rate 108 H 111 H 118 H Respiratory Rate 20 20 Blood Pressure Pulse Oximetry 94 12/08/19 12:00 12/08/19 14:00 12/08/19 14:11 Temperature 36.4 C L Pulse Rate 118 H 115 H 112 H Respiratory Rate 24 H 20 Blood Pressure 146/72 H Pulse Oximetry 92 12/08/19 14:19 Temperature Pulse Rate 115 H Respiratory Rate 20 Blood Pressure Pulse Oximetry Intake/Output Intake/Output: Intake & Output 12/05/19 12/06/19 12/07/19 12/08/19 23:59 23:59 23:59 23:59 Intake Total 2110 2730 4005 2707 Output Total 2500 4950 1700 245 Balance -390 -2220 2305 2462 Meds/Results Medications: Active Medications Generic Name Dose Route Start Last Admin Trade Name Freq PRN Reason Stop Dose Admin Acetaminophen 650 mg 12/03/19 11:46 Tylenol Tablet PO Q4H PRN Mild Pain (1-3) or Headache Albuterol 5 mg 12/01/19 20:00 12/08/19 14:03 Albuterol Sulf Neb 2.5mg/0.5ml INHALATION 5 mg Q6HRT [facility] Administration Bisacodyl 10 mg 12/09/19 09:00 Dulcolax Suppository RECTAL QAM [facility] Dextrose 12.5 gm 12/01/19 23:12 Dextrose 50% Syringe IV PUSH PRN PRN Hypoglycemia Protocol Enoxaparin Sodium 30 mg 12/07/19 09:00 12/08/19 08:52 Lovenox SUB-Q 30 mg DAILY IRIS Administration Glimepiride 2 mg 12/02/19 08:00 12/03/19 09:32 Amaryl PO Not Given DAILY@0800 IRIS Glucagon 1 mg 12/01/19 23:12 Glucagon For Inj IM PRN PRN Hypoglycemia Protoco
[2019-12-08 14:53] LABS: Alveolar/Arterial O2 Gradient 87.8 mmHg; Base Excess ABG 3.1 mEq/l (+/-2.0); Carboxyhemoglobin 0.3 % THb (0-2.0); Fractional Inspired Oxygen 30 %; HCO3 ABG 28.4 mEq/l (22.0-26.0); Methemoglobin ABG 0.3 %THb (0-1.5); Oxygen Content ABG 14.7 %vol (16.0-22.0); Oxygen Saturation ABG 94.4 % (95.0-100.0); Oxyhemoglobin 92.7 % THb (90.0-100.0); PCO2 ABG 46.2 mmHg (35.0-45.0); PO2 ABG 71.8 mmHg (80.0-100.0); PO2 FiO2 Ratio Arterial Blood 2.39 %; Reduced Hemoglobin 6.7 %THb (0-5.0); Total Hemoglobin 11.2 g/dL (12.0-18.0); pH ABG 7.406 (7.350-7.450)
[2019-12-08 14:55] LABS: Device NASAL CANNULA; Liters per Minute 2.5 LPM; Modified Allen's Test Pass; Site Drawn LEFT RADIAL
[2019-12-08] MEDS: SODIUM CHLORIDE 0.9% IV 500 ML IV CONT (15:18)
[2019-12-08 17:56] LABS: Glucose Point of Care 334 (65-105)
[2019-12-08 17:56] LABS: Glucose Point of Care 317 (65-105)
[2019-12-08] MEDS: METOCLOPRAMIDE HCL INJ 10 MG/2 ML VIAL IV PUSH ×2 (18:01→23:16)
--- NOTE | 2019-12-08 19:34 | PC.NURSE ---
Patient up to chair with [address] Scan and [address] chest done for SOB. No PE noted. Patient Maxi moved to bed without incident. Blood sugar increasing thru the day.
[2019-12-08] MEDS: DORNASE ALFA INH SOLN 1 MG/ML 2.5 ML AMP 2.5 MG INHALATION (19:44)
[2019-12-08] MEDS: INSULIN GLARGINE (*BKC) 100 UNITS/ML SUB-Q (20:12)
[2019-12-08] MEDS: BISACODYL 10 MG SUPPOSITORY RECTAL (20:12)
[2019-12-09] VITALS (27 sets, daily range): BP systolic 113–174; BP diastolic 58–84; PULSE 88–122; RESP 18–28; TEMP 36.3–36.9; O2SAT 91–100
[2019-12-09 00:36] LABS: Glucose Point of Care 306 (65-105)
[2019-12-09] MEDS: ALBUTEROL SULFATE NEB 2.5 MG/0.5 ML INH 5 MG INHALATION (01:18)
[2019-12-09] MEDS: IPRATROPIUM BR 0.02% INH SOLN 0.5 MG/2.5 ML VIAL INHALATION ×4 (01:18→19:49)
--- NOTE | 2019-12-09 03:29 | ECG_ITS ---
Measurements Intervals [place] Rate: 135 P: 47 IA: 149 QRS: 38 QRSD: 93 T: 48 QT: 301 QTc: 452 Interpretive Statements SINUS TACHYCARDIA ATRIAL PREMATURE COMPLEX, ATRIAL COUPLET AND RUN OF ATRIAL TACHYCARDIA NONSPECIFIC T-WAVE ABNORMALITY- INF/LAT LEADS BASELINE ARTIFACT- I, II, III, AVR, AVL ABNORMAL ECG Electronically Signed On 12-09-2019 10:47:38 CDT by Alvarez Gaytan D.O.
--- NOTE | 2019-12-09 03:45 | ECG_ITS ---
Measurements Intervals [place] Rate: 149 P: 40 [place]: 127 QRS: 39 QRSD: 93 T: 69 QT: 286 QTc: 451 Interpretive Statements ATRIAL FLUTTER/TACHYCARDIA WITH RAPID VENTRICULAR RESPONSE NONSPECIFIC ST & T-WAVE ABNORMALITY- INF/LAT LEADS ABNORMAL ECG Electronically Signed On 12-09-2019 12:19:13 CDT by Alvarez Gaytan D.O.
[2019-12-09 04:39] LABS: Hematocrit 29.5 % (37.0-47.0); Hemoglobin 9.1 g/dL (12.0-15.0); Mean Corpuscular HGB Conc 30.8 g/dl (32-36); Mean Corpuscular Hemoglobin 30.6 pg (26-34); Mean Corpuscular Volume 99.3 fl (80-100); Mean Platelet Volume 9.8 fl (7.4-10.4); Platelet Count Result 261 k/mm3 (150-375); Red Blood Count 2.97 M/mm3 (4.2-5.4); Red Cell Distribution Width 14.1 % (11.5-14.5)
[2019-12-09 04:51] LABS: Lactic Acid Reflex 0.8 mmol/L (0.7-2.1)
[2019-12-09 04:53] LABS: Blood Urea Nitrogen 81 mg/dL (7-17); Calcium 7.3 mg/dL (8.4-10.2); Carbon Dioxide 31 mmol/L (22-30); Chloride 101 mmol/L (98-107); Estimated CRCL calculation 22 ml/min; Estimated Glomerular Filt Rate 19; Glucose 287 mg/dL (65-105); Phosphorus 3.7 mg/dL (2.5-4.5); Potassium 4.2 mmol/L (3.4-5.0); Sodium 135 mmol/L (137-145)
[2019-12-09] MEDS: metroNIDAZOLE 500 MG/ISO 100ML 500 MG/100 ML BAG 100 MG IVPB ×4 (05:14→23:41)
[2019-12-09] MEDS: VANCOMYCIN ORAL 125 MG/2.5 ML SYRUP PO ×4 (05:15→23:41)
[2019-12-09] MEDS: LEVOTHYROXINE SODIUM INJ 100 MCG/5 ML VIAL 56 MCG IV PUSH (05:15)
[2019-12-09] MEDS: METOCLOPRAMIDE HCL INJ 10 MG/2 ML VIAL IV PUSH ×4 (05:15→23:42)
[2019-12-09 06:24] LABS: Glucose Point of Care 266 (65-105)
[2019-12-09 07:33] LABS: Glucose Point of Care 253 (65-105)
[2019-12-09] MEDS: SODIUM CHLORIDE 0.9% IV 500 ML IV CONT (08:07)
[2019-12-09] MEDS: ENOXAPARIN 30 MG/0.3 ML SYRINGE SUB-Q (08:08)
[2019-12-09] MEDS: BISACODYL 10 MG SUPPOSITORY RECTAL ×2 (08:08→21:30)
[2019-12-09] MEDS: PANTOPRAZOLE SODIUM IV 40 MG VIAL IV PUSH ×2 (08:09→21:30)
[2019-12-09] MEDS: methylPREDNISolone SOD SUCC 40 MG VIAL IV PUSH (08:09)
--- NOTE | 2019-12-09 08:12 | PM.IMPN ---
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 Lucas. 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 The pt does have a hx of colonic ileus in 2017 which was treated by decompressive colonoscopy by Dr. Bright who is also on board. She seems to be improving as she does feel she is now passing flatus and had a BM per RN reports overnight. She endorses that she feels much better today. No N/V. KUB with mild improvement Continue NPO with ice chips Continue NG tube Dr. Lucas has recommended Clinimix TPN since pt may require NPO for an extended duration. Appreciate recommendations. Continued recommendations from Dr. Orellana greatly appreciated - neostigmine is high risk for adverse pulmonary reaction and erythromycin would pose a risk for QT prolongation - I discussed with CHARMAINE Desouza and per Dr. Lucas, IV levaquin and IV flagyl should be continued until Thursday Continue bisacodyl suppository Q12HR scheduled Continue reglan (2) Asthma: Code(s): J45.909 - Unspecified asthma, uncomplicated Status: Acute Assessment and Plan: Pt reports hx of asthma that was well-controlled until her recent episode of pneumonia. She reports recent increased inhaler and nebulizer use. Suspect that asthma/COPD is contributing to her hypoxia and dyspnea. Continue scheduled nebulizers - suspect that this may be contributing to tachycardia. Levalbuterol in place of albuterol. Continue IV solumedrol, will begin to taper tomorrow Continue IS and chest physiotherapy (3) Small bowel obstruction: Code(s): K56.609 - Unspecified intestinal obstruction, unspecified as to partial versus complete obstruction Status: Ruled-out Assessment and Plan: Pt is s/p exploratory laparotomy 12/06/19 which revealed no evidence of SBO. 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 Bowel sounds have returned and pt had BM documented overnight. Appreciate continued general surgery input (4) Acute respiratory failure: Code(s): J96.00 - Acute respiratory failure, unspecified whether with hypoxia or hypercapnia Status: Acute Assessment and Plan: Pt developed hypoxia overnight 12/04 while undergoing KUB. NG suction was clamped for the study and pt developed significant anxiety. No reported aspiration. She was treated with nebulizers as she has asthma at baseline (per pt, she reports no hx of COPD but PFT not found in chart review). Venous doppler with no evidence of DVT. VQ scan with low probability for PE. CT chest without contrast reviewed and reveals dependent atelectais/scarring and small right pleural effusion. I suspect that acute asthma exacerbation, atelectasis, and significant abdominal distention with immobility are contributing to her dyspnea. Oxygen requirements have decreased 1L NC. She denies SOB but does note cough. Notably, she started pulmozyme yesterday. She is afebrile. WCC is trending down. Chest CT without evidence of consolidation. Continue PT/OT, increased activity, OOB to chair - suspect that her respiratory status will improve with increased activity as I believe this is primarily due to atelectasis Continue scheduled nebulizers Continue chest physiotherapy and IS Pulmozyme added Wean oxygen as tolerated Continue IV solumedrol, will taper (5) Diarrhea: Qualifiers: Diarrhea type: unspecified type Qualified Code(s): R19.7 - Diarrhea, unspecified Code(s): R19.7 - Diarrhea, unspecified Status: Resolved Assessment and Plan: Patient completed 7 day course of Levaquin on 11/24/19 and an additional course of Levaquin from 11/28/19-12/01/19 for suspected right lower lobe pneumonia. PO levaquin was discontinued 11/30. Patient was experiencing liquid brown stools whic
[2019-12-09] MEDS: DORNASE ALFA INH SOLN 1 MG/ML 2.5 ML AMP 2.5 MG INHALATION ×2 (08:14→19:48)
--- NOTE | 2019-12-09 10:16 | PCDIET ---
Nutrition Follow-Up Complete: Inadequate Oral Intake as related to Diarrhea as evidenced by poor po intake reported and weight loss of 6 ibs in 1 week. 2 BM reported today. Adequate intake of at least 75% of meals/supplements Goal: Pt tolerating TPN well. Pt current nutrition is: Clinimix 5/15 at goal rate of 40mls/hr with 250mls of 20% lipid emulsions at 20.833mls/hr. Providing 1182kcals, 48g pro, 1210ml total volume over 24hrs. Nutrition recommendation: Recommend Clinimix 5/15 advance to a goal rate of 50mls/hr Q24hrs with 250mls of 20% lipid emulsions at 20.833mls/hr, providing 1352kcals and 60g pro which is closer to pt's estimated needs (1613kcals and 0.6-0.8gm/kgABW = 62-68g/day). Total 24hr volume provided is 1450mls. Last recorded weight is 110.7 kg. An increase form initial recorded wt at admission of 104kg. Bowel Motility: +BM 12/08 Labs Reviewed:Na(135), K(4.2), GFR(19), BUN(81), Cr(2.4), Glu(287), Phos(3.7), Ca(7.3) Meds Noted:Flagyl, Lovenox, Vancomycin, Dulcolax, Reglan, Lantus, Zofran, Solu-medrol Additional Notes: Pt states no abdominal pain nor N/V. Pt states ice chips and water swabs help alleviate dryness. RD will montior rate and lab values. Will follow up T/F.
[2019-12-09] MEDS: INSULIN ASPART (*BKC) 100 UNITS/ML SUB-Q ×3 (10:33→18:06)
[2019-12-09] MEDS: FAT EMULSIONS IV 20% 250 ML 20.8 ML IVPB (10:33)
--- NOTE | 2019-12-09 11:14 | PCNSR ---
On 12/09/19, the student, Pascale Bennett, provided care and completed [facility] documentation on this patient. I have reviewed the student's documentation and agree with the findings. Also recommend checking TG level 3x weekly.
[2019-12-09] MEDS: METOPROLOL TARTRATE INJ 5 MG/5 ML VIAL 2.5 MG IV PUSH ×3 (12:41→23:41)
[2019-12-09 13:34] LABS: Glucose Point of Care 311 (65-105)
--- NOTE | 2019-12-09 16:25 | WPDGIPROGNO ---
Subjective Date/time seen: 12/09/19 16:25 Objective Data Vital Signs Vital Signs: Vital Signs - 24 hr 12/08/19 18:00 12/08/19 19:29 12/08/19 19:45 Temperature 36.5 C Pulse Rate 106 H 112 H 112 H Respiratory Rate 24 H 20 Blood Pressure 134/56 L Pulse Oximetry 99 12/08/19 19:49 12/08/19 19:53 12/08/19 20:00 Temperature Pulse Rate 111 H 115 H Respiratory Rate 20 Blood Pressure Pulse Oximetry 95 96 12/08/19 22:00 12/08/19 23:47 12/09/19 00:00 Temperature 36.6 C Pulse Rate 118 H 121 H 120 H Respiratory Rate 24 H Blood Pressure 119/52 L Pulse Oximetry 97 94 12/09/19 01:18 12/09/19 01:29 12/09/19 02:00 Temperature Pulse Rate 110 H 111 H 116 H Respiratory Rate 20 20 Blood Pressure Pulse Oximetry 12/09/19 04:00 12/09/19 06:00 12/09/19 08:00 Temperature 36.8 C 36.3 C L Pulse Rate 117 H 112 H 114 H Respiratory Rate 20 28 H Blood Pressure 128/66 164/84 H Pulse Oximetry 98 91 12/09/19 08:14 12/09/19 08:30 12/09/19 08:48 Temperature Pulse Rate 110 H 111 H 109 H Respiratory Rate 18 20 20 Blood Pressure Pulse Oximetry 97 96 12/09/19 10:00 12/09/19 11:18 12/09/19 12:00 Temperature 36.4 C Pulse Rate 110 H 109 H 102 H Respiratory Rate 24 H Blood Pressure 155/65 H Pulse Oximetry 100 100 12/09/19 12:41 12/09/19 13:44 12/09/19 13:54 Temperature Pulse Rate 112 H 108 H 109 H Respiratory Rate 20 20 Blood Pressure Pulse Oximetry 12/09/19 14:00 Temperature Pulse Rate 109 H Respiratory Rate Blood Pressure Pulse Oximetry Intake/Output Intake/Output: Intake & Output 12/06/19 12/07/19 12/08/19 12/09/19 23:59 23:59 23:59 23:59 Intake Total 2730 4005 4397 3005 Output Total 4950 1700 1095 600 Balance -2220 2305 3302 2405 Meds/Results Medications: Active Medications Generic Name Dose Route Start Last Admin Trade Name Freq PRN Reason Stop Dose Admin Acetaminophen 650 mg 12/03/19 11:46 Tylenol Tablet PO Q4H PRN Mild Pain (1-3) or Headache Bisacodyl 10 mg 12/08/19 21:00 12/09/19 08:08 Dulcolax Suppository RECTAL 10 mg Q12HR IRIS Administration Dextrose 12.5 gm 12/01/19 23:12 Dextrose 50% Syringe IV PUSH PRN PRN Hypoglycemia Protocol Dornase Yfn 2.5 mg 12/08/19 20:00 12/09/19 08:14 Pulmozyme INHALATION 2.5 mg Q12HRT IRIS Administration Enoxaparin Sodium 30 mg 12/07/19 09:00 12/09/19 08:08 Lovenox SUB-Q 30 mg DAILY IRIS Administration Glimepiride 2 mg 12/02/19 08:00 12/03/19 09:32 Amaryl PO Not Given DAILY@0800 IRIS Glucagon 1 mg 12/01/19 23:12 Glucagon For Inj IM PRN PRN Hypoglycemia Protocol Glucose 15 gm 12/01/19 23:12 Glutose 15 PO PRN PRN Hypoglycemia Protocol Guaifenesin 600 mg 12/02/19 21:00 12/03/19 09:33 Mucinex 12 Hr Tab PO 600 mg Q12HR IRIS Administration Dextrose 1,000 mls @ 100 mls/hr 12/01/19 23:12 Dextrose 5% 1,000 Ml IVPB PRN PRN Hypoglycemia Protocol Metronidazole 500 mg in 100 mls @ 100 mls/hr 12/02/19 06:20 12/09/19 12:38 Flagyl 500 Mg/Iso Soln 100 Ml IVPB 100 mls/hr Q6HR IRIS Administration Levofloxacin/Dextrose 750 mg in 150 mls @ 100 mls/hr 12/03/19 18:00 12/07/19 19:45 Levaquin 750 Mg/D5w 150 Ml IVPB Infused Q48H IRIS Infusion Dextrose 1,000 mls @ 50 mls/hr 12/07/19 07:13 Dextrose 10% IV CONT .Q20H PRN if PN is interrupted Multivitamins 5 ml/ Amino 2,005 mls @ 40 mls/hr 12/07/19 09:00 12/09/19 10:33 Acids/Electrolytes/Dextrose IV CONT 40 mls/hr .Q24H IRIS Administration Protocol Fat Emulsion Intravenous 250 mls @ 20.833 mls/hr 12/07/19 10:00 12/09/19 10:33 Lipids 20% IVPB 20.8 mls/hr Q24H IRIS Administration Sodium Chloride 1,000 mls @ 50 mls/hr 12/08/19 09:50 12/09/19 06:24 Normal Saline Iv IV CONT 50 mls/hr .Q20H IRIS Infusion Insulin Aspart 3 - 6 un
--- NOTE | 2019-12-09 16:25 | WPDGIPROGNO ---
Subjective Date/time seen: This very pleasant lady is feeling better. No nausea or vomiting. He she is passing some flatus and had a bowel movement yesterday evening. KUB is much improved. Her breathing is improved. Physical examination: General: very pleasant patient in no acute distress. HEENT: Head was normocephalic sclerae is clear mouth without masses neck was supple. Heart: Rate rhythm regular without S3 or S4. Lungs: Decreased breath sounds bilaterally. Improved over yesterday. Abdomen: Slight distention and soft. Bowel sounds were a little more active today. Somewhat tympanic. Neurologic: Cranial nerves 2 through 12 intact. No focal defects. No clonus. Musculoskeletal system: Revealed no joint tenderness or swelling no muscle atrophy. Extremities: Reveal no significant edema. Skin: Warm and dry with normal turgor. Mental status: intact. Patient is alert and oriented. KUB shows improvement in bowel gas pattern. Impression: Small bowel obstruction versus pseudo-obstruction/ileus. Leukocytosis. May be secondary to above. Increasing shortness of breath. This may be secondary underlying atelectasis/COPD. Recent pneumonia. History of adenomatous colon polyps. Last colonoscopy was September of 2018. Diabetes mellitus. Hypertension. Hyperlipidemia. Chronic kidney disease. COPD. Hypothyroidism. Rheumatoid arthritis. DVT by history. Obesity. Recommendation: Continue Dulcolax suppository. Continue Reglan. Again this is problem marginal benefit. Hopefully the patient will not need decompression. Recheck KUB Thursday or Thursday. Increase ambulation. Objective Data Vital Signs Vital Signs: Vital Signs - 24 hr 12/08/19 18:00 12/08/19 19:29 12/08/19 19:45 Temperature 36.5 C Pulse Rate 106 H 112 H 112 H Respiratory Rate 24 H 20 Blood Pressure 134/56 L Pulse Oximetry 99 12/08/19 19:49 12/08/19 19:53 12/08/19 20:00 Temperature Pulse Rate 111 H 115 H Respiratory Rate 20 Blood Pressure Pulse Oximetry 95 96 12/08/19 22:00 12/08/19 23:47 12/09/19 00:00 Temperature 36.6 C Pulse Rate 118 H 121 H 120 H Respiratory Rate 24 H Blood Pressure 119/52 L Pulse Oximetry 97 94 12/09/19 01:18 12/09/19 01:29 12/09/19 02:00 Temperature Pulse Rate 110 H 111 H 116 H Respiratory Rate 20 20 Blood Pressure Pulse Oximetry 12/09/19 04:00 12/09/19 06:00 12/09/19 08:00 Temperature 36.8 C 36.3 C L Pulse Rate 117 H 112 H 114 H Respiratory Rate 20 28 H Blood Pressure 128/66 164/84 H Pulse Oximetry 98 91 12/09/19 08:14 12/09/19 08:30 12/09/19 08:48 Temperature Pulse Rate 110 H 111 H 109 H Respiratory Rate 18 20 20 Blood Pressure Pulse Oximetry 97 96 12/09/19 10:00 12/09/19 11:18 12/09/19 12:00 Temperature 36.4 C Pulse Rate 110 H 109 H 102 H Respiratory Rate 24 H Blood Pressure 155/65 H Pulse Oximetry 100 100 12/09/19 12:41 12/09/19 13:44 12/09/19 13:54 Temperature Pulse Rate 112 H 108 H 109 H Respiratory Rate 20 20 Blood Pressure Pulse Oximetry 12/09/19 14:00 Temperature Pulse Rate 109 H Respiratory Rate Blood Pressure Pulse Oximetry Intake/Output Intake/Output: Intake & Output 12/06/19 12/07/19 12/08/19 12/09/19 23:59 23:59 23:59 23:59 Intake Total 2730 4005 4397 3005 Output Total 4950 1700 1095 600 Balance -2220 2305 3302 2405 Meds/Results Medications: Active Medications Generic Name Dose Route Start Last Admin Trade Name Freq PRN Reason Stop Dose Admin Acetaminophen 650 mg 12/03/19 11:46 Tylenol Tablet PO Q4H PRN Mild Pain (1-3) or Headache Bisacodyl 10 mg 12/08/19 21:00 12/09/19 08:08 Dulcolax Suppository RECTAL 10 mg Q12HR IRIS Administration Dextrose 12.5 gm 12/01/19 23:12 Dextrose 50% Syringe IV PUSH PRN PRN Hypoglycemia Protocol Dornase Yfn 2.5 mg 12/08/19 20:00 12/09/19 08:14 Pulmozyme INHALATION 2
--- NOTE | 2019-12-09 16:40 | PM.PNGS ---
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 Incision looks good without signs of infection or drainage. PT/OT working with the patient and needs to continue to increase activity. Continue IS use. Consistent with colonic ileus or [place]'s syndrome. Would recommend continuing antibiotics for at least a week week. Management per Hospitalist and GI. (2) Morbid obesity due to excess calories: Code(s): E66.01 - Morbid (severe) obesity due to excess calories Status: Chronic (3) Acute on chronic renal failure: Qualifiers: Acute renal failure type: unspecified Chronic kidney disease stage: stage 3 (moderate) Qualified Code(s): N17.9 - Acute kidney failure, unspecified; N18.3 - Chronic kidney disease, stage 3 (moderate) Code(s): N17.9 - Acute kidney failure, unspecified; N18.9 - Chronic kidney disease, unspecified Status: Acute Assessment and Plan: Creatinine 2.4 today, slightly improved. Management per Hospitalist. (4) Protein-calorie malnutrition, moderate: Code(s): E44.0 - Moderate protein-calorie malnutrition Status: Acute Assessment and Plan: Continue Clinimix TPN. (5) COPD (chronic obstructive pulmonary disease): Qualifiers: COPD type: unspecified COPD Qualified Code(s): J44.9 - Chronic obstructive pulmonary disease, unspecified Code(s): J44.9 - Chronic obstructive pulmonary disease, unspecified Status: Chronic (6) DM type 2 (diabetes mellitus, type 2): Code(s): E11.9 - Type 2 diabetes mellitus without complications Status: Chronic Assessment and Plan: Monitor and sliding scale. (7) Benign essential hypertension: Code(s): I10 - Essential (primary) hypertension Status: Chronic Additional Plan Discussed plan of care and patient's case with Dr. Lucas today. Subjective Subjective Date/Time Seen: 12/09/19 16:40 Patient reports: no new complaints, flatus and bowel movement (yesterday) Interval history: Patient reports feeling somewhat better today. Up in the chair via jenn lift. Denies abdominal pain. Reports flatus today and one bowel movement after a suppository yesterday. No new complaints. Feels her breathing is better today than it was overnight. Review of Systems Review of Systems: All systems reviewed & are unremarkable except as noted in HPI and below Exam Const: General: comfortable, no acute distress and awake Nutritional Appearance: obese Orientation/consciousness: patient oriented x3 GI: Inspection: obesity, no visible herniation and other (Abdominal incision clean/dry/intact, no signs of infection/drainage) GI Palp: No abdominal tenderness, Yes Soft to palpation and No Guarding due to palpation present (GI) Auscultation: Hypoactive bowel sounds present Skin: General skin exam: normal color Neuro: General: moves all extremities and no focal motor deficits Psych: Affect: normal affect Thought process: Normal thought process present Insight: Good insight present (Psych) Judgement: Good judgement present (Psych) Objective Data Vital Signs Vital Signs: Vital Signs - 24 hr 12/08/19 18:00 12/08/19 19:29 12/08/19 19:45 Temperature 36.5 C Pulse Rate 106 H 112 H 112 H Respiratory Rate 24 H 20 Blood Pressure 134/56 L Pulse Oximetry 99 12/08/19 19:49 12/08/19 19:53 12/08/19 20:00 Temperature Pulse Rate 111 H 115 H Respiratory Rate 20 Blood Pressure Pulse Oximetry 95 96 12/08/19 22:00 12/08/19 23:47 12/09/19 00:00 Temperature 36.6 C Pulse Rate 118 H 121 H 120 H Respiratory Rate 24 H Blood Pressure 119/52 L Pulse Oximetry 97 94 12/09/19 01:18 12/09/19 01:29 12/09/19 02:00 Temperature Pulse Rate 110 H 111 H 116 H Respiratory Rate 20 20 Blood Pressure Pulse Oximetry
[2019-12-09 16:52] LABS: Glucose Point of Care 315 (65-105)
[2019-12-09] MEDS: SODIUM CHLORIDE 0.9% IV 1,000 ML 50 ML IV CONT (18:05)
--- NOTE | 2019-12-09 18:41 | PM.IMPN ---
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 Status: Acute (2) Asthma: Code(s): J45.909 - Unspecified asthma, uncomplicated Status: Acute (3) Small bowel obstruction: Code(s): K56.609 - Unspecified intestinal obstruction, unspecified as to partial versus complete obstruction Status: Ruled-out (4) Acute respiratory failure: Code(s): J96.00 - Acute respiratory failure, unspecified whether with hypoxia or hypercapnia Status: Acute (5) Diarrhea: Qualifiers: Diarrhea type: unspecified type Qualified Code(s): R19.7 - Diarrhea, unspecified Code(s): R19.7 - Diarrhea, unspecified Status: Resolved Assessment and Plan: (6) Acute on chronic renal failure: Qualifiers: Acute renal failure type: unspecified Chronic kidney disease stage: stage 3 (moderate) Qualified Code(s): N17.9 - Acute kidney failure, unspecified; N18.3 - Chronic kidney disease, stage 3 (moderate) Code(s): N17.9 - Acute kidney failure, unspecified; N18.9 - Chronic kidney disease, unspecified Status: Acute (7) Electrolyte abnormality: Code(s): E87.8 - Other disorders of electrolyte and fluid balance, not elsewhere classified Status: Acute (8) Benign essential hypertension: Code(s): I10 - Essential (primary) hypertension Status: Chronic (9) DM type 2 (diabetes mellitus, type 2): Code(s): E11.9 - Type 2 diabetes mellitus without complications Status: Chronic (10) Abnormal CT scan, kidney: Code(s): R93.429 - Abnormal radiologic findings on diagnostic imaging of unspecified kidney Status: Acute Assessment and Plan: (11) Cough: Code(s): R05 - Cough Status: Resolved (12) Hypothyroidism (acquired): Code(s): E03.9 - Hypothyroidism, unspecified Status: Acute (13) Compression fracture of thoracic spine, non-traumatic: Qualifiers: Encounter type: subsequent encounter Thoracic vertebra fracture level: T1 Fracture healing: with routine healing Qualified Code(s): M48.54XD - Collapsed vertebra, not elsewhere classified, thoracic region, subsequent encounter for fracture with routine healing Code(s): M48.54XA - Collapsed vertebra, not elsewhere classified, thoracic region, initial encounter for fracture Status: Acute (14) Pulmonary nodule: Code(s): R91.1 - Solitary pulmonary nodule Status: Acute (15) Tachycardia: Code(s): R00.0 - Tachycardia, unspecified Status: Acute Additional Plan Patient remains NPO with NG tube in place. Appreciate input from GI and general surgery. S/P exploratory laparotomy. On TPN. Respiratory status improving. V/Q scan negative. Down to 1 L of oxygen. Continue nebulizer treatments. Remains on IV Levaquin, IV metronidazole and oral vancomycin. Telemetry reviewed on 12/09/2019 with sinus tachycardia with heart rate improved to low 100s. Continue IV metoprolol started today. Continue other treatments as per PA documentation. Time Spent With Patient Time with patient: 15 - 25 minutes Subjective Date/time seen: 12/09/19 18:41 Interval history: Date of Service: 12/09/2019. Admitted with diarrhea and found to have Marielle's syndrome. Case reviewed and discussed with PA. Patient seen late this afternoon personally by me. Patient sitting in recliner. Tired. No abdominal pain. No nausea or vomiting. No chest pain. No shortness of breath. Review of Systems Constitutional: Constitutional: Reports fatigue Cardiovascular: Cardiovascular: Denies chest pain Respiratory: Respiratory: Denies dyspnea Gastrointestinal: Gastrointestinal: Denies abdominal pain Exam Const: General: no acute distress Neck: Neck: supple Lymphatic: lymphadenopathy not noted Resp: Auscultation: no rales, no wheezes and diminis
[2019-12-09] MEDS: INSULIN GLARGINE (*BKC) 100 UNITS/ML 10 UNITS SUB-Q (21:31)
[2019-12-09 21:42] LABS: Glucose Point of Care 261 (65-105)
[2019-12-10] VITALS (27 sets, daily range): BP systolic 129–173; BP diastolic 62–87; PULSE 79–105; RESP 16–24; TEMP 36.1–36.3; O2SAT 93–99
[2019-12-10 00:27] LABS: Glucose Point of Care 212 (65-105)
[2019-12-10] MEDS: IPRATROPIUM BR 0.02% INH SOLN 0.5 MG/2.5 ML VIAL INHALATION ×4 (01:24→19:35)
[2019-12-10] MEDS: METOPROLOL TARTRATE INJ 5 MG/5 ML VIAL 2.5 MG IV PUSH ×2 (05:24→12:56)
[2019-12-10] MEDS: metroNIDAZOLE 500 MG/ISO 100ML 500 MG/100 ML BAG 100 MG IVPB ×3 (05:24→17:05)
[2019-12-10] MEDS: METOCLOPRAMIDE HCL INJ 10 MG/2 ML VIAL IV PUSH ×3 (05:25→17:07)
[2019-12-10] MEDS: LEVOTHYROXINE SODIUM INJ 100 MCG/5 ML VIAL 56 MCG IV PUSH (05:25)
[2019-12-10] MEDS: VANCOMYCIN ORAL 125 MG/2.5 ML SYRUP PO ×3 (05:25→17:22)
[2019-12-10 05:44] LABS: Glucose Point of Care 213 (65-105)
[2019-12-10 06:00] LABS: Hematocrit 30.3 % (37.0-47.0); Hemoglobin 9.4 g/dL (12.0-15.0); Mean Corpuscular Hemoglobin 30.8 pg (26-34); Mean Corpuscular Volume 99.3 fl (80-100); Mean Platelet Volume 9.8 fl (7.4-10.4); Platelet Count Result 239 k/mm3 (150-375); Red Blood Count 3.05 M/mm3 (4.2-5.4); White Blood Count 13.8 K/mm3 (4.5-10.0)
[2019-12-10 06:10] LABS: Triglycerides 154 mg/dL (<150)
[2019-12-10 06:15] LABS: Blood Urea Nitrogen 70 mg/dL (7-17); Calcium 7.2 mg/dL (8.4-10.2); Carbon Dioxide 29 mmol/L (22-30); Chloride 103 mmol/L (98-107); Estimated CRCL calculation 29 ml/min; Estimated Glomerular Filt Rate 27; Glucose 205 mg/dL (65-105); Magnesium 1.9 mg/dL (1.6-2.3); Phosphorus 3.4 mg/dL (2.5-4.5); Potassium 4.3 mmol/L (3.4-5.0); Sodium 138 mmol/L (137-145)
[2019-12-10] MEDS: DORNASE ALFA INH SOLN 1 MG/ML 2.5 ML AMP 2.5 MG INHALATION ×2 (08:30→19:35)
--- NOTE | 2019-12-10 08:57 | WPDGIPROGNO ---
Progress Note: A&P Additional Plan GI Dany marco Bright 10 Dec 2019 Denies abdominal pain, nausea or vomiting. ? flatus. No BM per RN Naheed vss soft/NT Hct 30. WBC 13 A/P Ileus - Continue prokinetics - Avoid meds that decrease gastric motility - Consider clears - Consider rectal tube CESAR Cooper [phone] Subjective Date/time seen: 12/10/19 08:57 Objective Data Vital Signs Vital Signs: Vital Signs - 24 hr 12/09/19 10:00 12/09/19 11:18 12/09/19 12:00 Temperature 36.4 C Pulse Rate 110 H 109 H 102 H Respiratory Rate 24 H Blood Pressure 155/65 H Pulse Oximetry 100 100 12/09/19 12:41 12/09/19 13:44 12/09/19 13:54 Temperature Pulse Rate 112 H 108 H 109 H Respiratory Rate 20 20 Blood Pressure Pulse Oximetry 12/09/19 14:00 12/09/19 16:00 12/09/19 18:00 Temperature 36.9 C Pulse Rate 109 H 105 H 106 H Respiratory Rate 24 H Blood Pressure 174/61 H Pulse Oximetry 98 12/09/19 18:06 12/09/19 19:46 12/09/19 19:49 Temperature 36.6 C Pulse Rate 106 H 98 93 Respiratory Rate 24 H 20 Blood Pressure 113/80 Pulse Oximetry 97 12/09/19 20:00 12/09/19 20:01 12/09/19 22:00 Temperature Pulse Rate 102 H 88 96 Respiratory Rate 20 Blood Pressure Pulse Oximetry 12/09/19 23:29 12/09/19 23:41 12/10/19 00:00 Temperature 36.3 C L Pulse Rate 101 H 102 H 93 Respiratory Rate 24 H Blood Pressure 142/58 H Pulse Oximetry 100 12/10/19 01:28 12/10/19 01:35 12/10/19 01:39 Temperature Pulse Rate 82 80 91 Respiratory Rate 20 20 20 Blood Pressure Pulse Oximetry 95 12/10/19 02:00 12/10/19 03:58 12/10/19 04:00 Temperature 36.1 C L Pulse Rate 98 101 H 105 H Respiratory Rate 20 Blood Pressure 129/62 Pulse Oximetry 99 12/10/19 05:24 12/10/19 05:32 12/10/19 08:00 Temperature Pulse Rate 83 97 105 H Respiratory Rate Blood Pressure Pulse Oximetry 12/10/19 08:32 12/10/19 08:54 Temperature Pulse Rate 94 105 H Respiratory Rate 22 H 20 Blood Pressure Pulse Oximetry 98 Intake/Output Intake/Output: Intake & Output 12/07/19 12/08/19 12/09/19 12/10/19 23:59 23:59 23:59 23:59 Intake Total 4005 4397 5435 2747 Output Total 1700 1095 3600 1800 Balance 2305 3302 1835 947 Meds/Results Medications: Active Medications Generic Name Dose Route Start Last Admin Trade Name Freq PRN Reason Stop Dose Admin Acetaminophen 650 mg 12/03/19 11:46 Tylenol Tablet PO Q4H PRN Mild Pain (1-3) or Headache Bisacodyl 10 mg 12/08/19 21:00 12/09/19 21:30 Dulcolax Suppository RECTAL 10 mg Q12HR IRIS Administration Dextrose 12.5 gm 12/01/19 23:12 Dextrose 50% Syringe IV PUSH PRN PRN Hypoglycemia Protocol Dornase Yfn 2.5 mg 12/08/19 20:00 12/10/19 08:30 Pulmozyme INHALATION 2.5 mg Q12HRT IRIS Administration Enoxaparin Sodium 30 mg 12/07/19 09:00 12/09/19 08:08 Lovenox SUB-Q 30 mg DAILY IRIS Administration Glimepiride 2 mg 12/02/19 08:00 12/03/19 09:32 Amaryl PO Not Given DAILY@0800 IRIS Glucagon 1 mg 12/01/19 23:12 Glucagon For Inj IM PRN PRN Hypoglycemia Protocol Glucose 15 gm 12/01/19 23:12 Glutose 15 PO PRN PRN Hypoglycemia Protocol Guaifenesin 600 mg 12/02/19 21:00 12/03/19 09:33 Mucinex 12 Hr Tab PO 600 mg Q12HR IRIS Administration Dextrose 1,000 mls @ 100 mls/hr 12/01/19 23:12 Dextrose 5% 1,000 Ml IVPB PRN PRN Hypoglycemia Protocol Metronidazole 500 mg in 100 mls @ 100 mls/hr 12/02/19 06:20 12/10/19 06:24 Flagyl 500 Mg/Iso Soln 100 Ml IVPB Infused Q6HR IRIS Infusion Levofloxacin/Dextrose 750 mg in 150 mls @ 100 mls/hr 12/03/19 18:00 12/09/19 19:35 Levaquin 750 Mg/D5w 150 Ml IVPB Infused Q48H IRIS Infusion Dextrose 1,000 mls @ 50 mls/hr 12/07/19 07:13 Dextrose 10% IV CONT .Q20H PRN if PN is interrupted Multivitam
[2019-12-10] MEDS: BISACODYL 10 MG SUPPOSITORY RECTAL (10:40)
[2019-12-10] MEDS: ENOXAPARIN 30 MG/0.3 ML SYRINGE SUB-Q (10:40)
[2019-12-10] MEDS: FAT EMULSIONS IV 20% 250 ML 20.8 ML IVPB (10:41)
[2019-12-10] MEDS: PANTOPRAZOLE SODIUM IV 40 MG VIAL IV PUSH ×2 (10:41→21:32)
[2019-12-10] MEDS: methylPREDNISolone SOD SUCC 40 MG VIAL IV PUSH (10:41)
--- NOTE | 2019-12-10 10:53 | PM.PNGS ---
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 Incision looks good without signs of infection or drainage. PT/OT working with the patient and needs to continue to increase activity. Continue IS use. Consistent with colonic ileus or Davey's syndrome. Would recommend continuing antibiotics for at least a week week. Management per Hospitalist and GI. (2) Morbid obesity due to excess calories: Code(s): E66.01 - Morbid (severe) obesity due to excess calories Status: Chronic (3) Acute on chronic renal failure: Qualifiers: Acute renal failure type: unspecified Chronic kidney disease stage: stage 3 (moderate) Qualified Code(s): N17.9 - Acute kidney failure, unspecified; N18.3 - Chronic kidney disease, stage 3 (moderate) Code(s): N17.9 - Acute kidney failure, unspecified; N18.9 - Chronic kidney disease, unspecified Status: Acute Assessment and Plan: Creatinine 1.8 and BUN 70 today, slightly improved. Management per Hospitalist. (4) Protein-calorie malnutrition, moderate: Code(s): E44.0 - Moderate protein-calorie malnutrition Status: Acute Assessment and Plan: Continue Clinimix TPN. (5) COPD (chronic obstructive pulmonary disease): Qualifiers: COPD type: unspecified COPD Qualified Code(s): J44.9 - Chronic obstructive pulmonary disease, unspecified Code(s): J44.9 - Chronic obstructive pulmonary disease, unspecified Status: Chronic (6) DM type 2 (diabetes mellitus, type 2): Code(s): E11.9 - Type 2 diabetes mellitus without complications Status: Chronic Assessment and Plan: Monitor and sliding scale. (7) Benign essential hypertension: Code(s): I10 - Essential (primary) hypertension Status: Chronic Additional Plan Continue TPN until NG can be out Agree with continued IV antibiotics and care by GI. Subjective Subjective Date/Time Seen: 12/10/19 10:53 Patient lying in bed and awakens easily to verbal stimuli. States she has passed some flatus but not any stool. Nurses report no stool last 24 hours. Duplex suppository is planned. Patient denies abdominal pain today. Review of Systems Review of Systems: All systems reviewed & are unremarkable except as noted in HPI and below Constitutional: Constitutional: Denies headache(s) and Denies malaise ENT: Denies headache(s) Cardiovascular: Cardiovascular: Denies chest pain and Denies dyspnea Respiratory: Respiratory: Denies cough and Denies dyspnea Gastrointestinal: Gastrointestinal: Reports as per HPI, Denies abdominal pain, Denies GI cramping and Denies nausea Neurologic: Denies confusion, Denies headache(s) and Denies Sensory deficit (Neuro) Psychiatric: Psychiatric: Denies confusion Exam Const: General: comfortable, no acute distress, awake and Physically active; No confusion Nutritional Appearance: obese Orientation/consciousness: No confusion HENMT: Head: normocephalic and atraumatic Ears: hearing grossly normal bilaterally and external ears normal General nose exam: Normal external nose present, no nasal discharge noted and no epistaxis Face and sinus: normal facial exam, face symmetric, no tenderness and dry mucous membranes Mouth: Yes Normal oral and palatal mucosa present and No tongue abnormal Chest: Chest palpation & inspection: mass and no tenderness GI: Inspection: distended, incision (DRESSING DRY AND INTACT), obesity, scar ( Midline abdominal scar), no visible herniation and other (Abdominal incision clean/dry/intact, no signs of infection/drainage) Auscultation: Hypoactive bowel sounds present (tinkling) Skin: General skin exam: normal color, no induration and other (no palpable nodules) Lesions: no lesions Rashes: no rashes Nails: no clubbing and no pitting Neur
[2019-12-10] MEDS: INSULIN ASPART (*BKC) 100 UNITS/ML SUB-Q ×2 (13:18→17:34)
[2019-12-10 13:51] LABS: Glucose Point of Care 290 (65-105)
[2019-12-10 14:30] LABS: CMV IgM Antibody <30.00 AU/mL (<30.00)
[2019-12-10] MEDS: METOPROLOL TARTRATE INJ 5 MG/5 ML VIAL IV PUSH (17:07)
[2019-12-10] MEDS: SODIUM CHLORIDE 0.9% IV 1,000 ML 50 ML IV CONT (17:11)
[2019-12-10 18:01] LABS: Glucose Point of Care 305 (65-105)
[2019-12-10 18:26] LABS: Varicella IgM Antibody <=0.90 (<=0.90)
--- NOTE | 2019-12-10 18:45 | PC.NURSE ---
NG clamped per Mary Ann Mcgrath NP directions at 1630, pt allowed clears for 2 hours. Pt tolerated well. Clears discontinued at 1830. NG will remain clamped until 193. At that time, NG will be placed on low intermittent suction.
--- NOTE | 2019-12-10 19:34 | PM.IMPN ---
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 Lucas. 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 The pt does have a hx of colonic ileus in 2017. KUB 12/08 with mild improvement in gaseous distention. She continues to endorse flatus. She denies nausea, vomiting, and abdominal pain. No BM overnight or today. Bowel sounds active. Discussed with Dr. Saenz and Dr. Mazariegos who have recommended a trial of CLD with the NG tube clamped intermittently as well as a rectal tube to aid in decompression Dr. Lucas has recommended Clinimix TPN since pt may require NPO for an extended duration. Management per general surgery. Continued recommendations from Dr. Orellana greatly appreciated. Pt is on reglan. Management per GI. Continue bisacodyl suppository Q12HR scheduled (2) Asthma: Code(s): J45.909 - Unspecified asthma, uncomplicated Status: Acute Assessment and Plan: Pt reports hx of asthma that was well-controlled until her recent episode of pneumonia. She reports recent increased inhaler and nebulizer use. Suspect that asthma/COPD is contributing to her hypoxia and dyspnea. Continue scheduled nebulizers - suspect that this may be contributing to tachycardia. Levalbuterol in place of albuterol. Continue IV solumedrol with taper Continue IS and chest physiotherapy (3) Small bowel obstruction: Code(s): K56.609 - Unspecified intestinal obstruction, unspecified as to partial versus complete obstruction Status: Ruled-out Assessment and Plan: Pt is s/p exploratory laparotomy 12/06/19 which revealed no evidence of SBO. 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 Bowel sounds have returned and pt had BM documented overnight. Appreciate continued general surgery input (4) Acute respiratory failure: Code(s): J96.00 - Acute respiratory failure, unspecified whether with hypoxia or hypercapnia Status: Acute Assessment and Plan: Continue PT/OT, increased activity, OOB to chair Continue scheduled nebulizers Continue chest physiotherapy and IS Continue pulmozyme Wean oxygen as tolerated Continue IV solumedrol, will taper (5) Diarrhea: Qualifiers: Diarrhea type: unspecified type Qualified Code(s): R19.7 - Diarrhea, unspecified Code(s): R19.7 - Diarrhea, unspecified Status: Resolved Assessment and Plan: IV flagyl was initiated 12/01 and IV levaquin 12/02. Discussed with Lyly who spoke with Dr. Lucas who would like levaquin and flagyl to continue until Thursday. Continue PO Vanc, clamp NG tube intermittently for administration (6) Acute on chronic renal failure: Qualifiers: Acute renal failure type: unspecified Chronic kidney disease stage: stage 3 (moderate) Qualified Code(s): N17.9 - Acute kidney failure, unspecified; N18.3 - Chronic kidney disease, stage 3 (moderate) Code(s): N17.9 - Acute kidney failure, unspecified; N18.9 - Chronic kidney disease, unspecified Status: Acute Assessment and Plan: Cr improved to 1.8 today. Gastric losses are decreasing. Pt is on TPN Will continue IV fluids at low rate Continue to monitor renal function (7) Electrolyte abnormality: Code(s): E87.8 - Other disorders of electrolyte and fluid balance, not elsewhere classified Status: Acute Assessment and Plan: Electrolytes reviewed and stable. Hold HCTZ Will continue to monitor (8) Benign essential hypertension: Code(s): I10 - Essential (primary) hypertension Status: Chronic Assessment and Plan: Blood pressure reviewed and improving. Continue metoprolol IV, dose increased due to HTN and NPO status Will see if pt tolerates CLD and sw
[2019-12-10] MEDS: INSULIN GLARGINE (*BKC) 100 UNITS/ML 15 UNITS SUB-Q (21:31)
[2019-12-10 21:51] LABS: Glucose Point of Care 278 (65-105)
[2019-12-11] VITALS (27 sets, daily range): BP systolic 145–152; BP diastolic 66–79; PULSE 77–108; RESP 16–20; TEMP 36.1–36.8; O2SAT 94–98; BMI 10.0
[2019-12-11 00:25] LABS: Glucose Point of Care 267 (65-105)
[2019-12-11] MEDS: VANCOMYCIN ORAL 125 MG/2.5 ML SYRUP PO ×5 (00:35→23:45)
[2019-12-11] MEDS: METOPROLOL TARTRATE INJ 5 MG/5 ML VIAL IV PUSH ×5 (00:35→23:43)
[2019-12-11] MEDS: METOCLOPRAMIDE HCL INJ 10 MG/2 ML VIAL IV PUSH ×5 (00:36→23:43)
[2019-12-11] MEDS: metroNIDAZOLE 500 MG/ISO 100ML 500 MG/100 ML BAG 100 MG IVPB ×3 (00:36→13:31)
[2019-12-11] MEDS: IPRATROPIUM BR 0.02% INH SOLN 0.5 MG/2.5 ML VIAL INHALATION ×3 (01:45→15:58)
[2019-12-11 05:46] LABS: Osmolality, Urine 448 mOsm/kg (50-1200)
[2019-12-11] MEDS: LEVOTHYROXINE SODIUM INJ 100 MCG/5 ML VIAL 56 MCG IV PUSH (05:46)
[2019-12-11 06:15] LABS: Hematocrit 30.9 % (37.0-47.0); Hemoglobin 9.5 g/dL (12.0-15.0); Mean Corpuscular HGB Conc 30.7 g/dl (32-36); Mean Corpuscular Hemoglobin 30.8 pg (26-34); Mean Corpuscular Volume 100.3 fl (80-100); Platelet Count Result 232 k/mm3 (150-375); Red Blood Count 3.08 M/mm3 (4.2-5.4); Red Cell Distribution Width 13.9 % (11.5-14.5); White Blood Count 13.9 K/mm3 (4.5-10.0)
[2019-12-11 06:20] LABS: Glucose Point of Care 243 (65-105)
[2019-12-11 06:29] LABS: Alanine Aminotransferase 13 U/L (4-35); Albumin Level 2.5 g/dL (3.5-5.1); Alkaline Phosphatase 42 U/L (38-126); Aspartate Amino Transferase 17 U/L (14-36); Bilirubin,Total 0.3 mg/dL (0.2-1.3); Blood Urea Nitrogen 61 mg/dL (7-17); Calcium 7.7 mg/dL (8.4-10.2); Carbon Dioxide 32 mmol/L (22-30); Chloride 105 mmol/L (98-107); Estimated CRCL calculation 35 ml/min; Estimated Glomerular Filt Rate 33; Glucose 253 mg/dL (65-105); Potassium 4.2 mmol/L (3.4-5.0); Sodium 138 mmol/L (137-145)
[2019-12-11] MEDS: DORNASE ALFA INH SOLN 1 MG/ML 2.5 ML AMP 2.5 MG INHALATION ×2 (09:55→21:19)
[2019-12-11] MEDS: INSULIN ASPART (*BKC) 100 UNITS/ML SUB-Q ×3 (09:57→18:21)
[2019-12-11] MEDS: ENOXAPARIN 30 MG/0.3 ML SYRINGE SUB-Q (09:58)
[2019-12-11] MEDS: methylPREDNISolone SOD SUCC 40 MG VIAL 30 MG IV PUSH (09:58)
[2019-12-11] MEDS: PANTOPRAZOLE SODIUM IV 40 MG VIAL IV PUSH ×2 (09:59→21:11)
[2019-12-11] MEDS: FAT EMULSIONS IV 20% 250 ML 20.8 ML IVPB (10:01)
[2019-12-11] MEDS: DOCUSATE SODIUM LIQ 100 MG/10 ML UDC PO ×2 (10:37→21:11)
--- NOTE | 2019-12-11 11:44 | WPDGIPROGNO ---
Progress Note: A&P Additional Plan GI Dany for Kaila 11 Dec 2019 Denies abdominal pain, nausea or vomiting. + flatus. + BM. Currently NPO and NG-> LIS vss soft/NT Hct 30. WBC 13 A/P Ileus - Continue prokinetics - Avoid meds that decrease gastric motility - Tolerated clamping of NG yesterday - Clears today; if giovanni tomorrow advance to full liquid and consider Jevity 1.5 @ 10-15 cc/hr - Rectal tube in Further recommendations per Dr. Bright. Thanks, [facility] [phone] Subjective Date/time seen: 12/11/19 11:44 Objective Data Vital Signs Vital Signs: Vital Signs - 24 hr 12/10/19 12:00 12/10/19 14:00 12/10/19 14:49 Temperature 36.3 C L Pulse Rate 95 95 84 Respiratory Rate 16 24 H Blood Pressure 173/87 H Pulse Oximetry 94 12/10/19 14:56 12/10/19 16:00 12/10/19 17:07 Temperature 36.2 C L Pulse Rate 92 91 95 Respiratory Rate 20 24 H Blood Pressure 151/80 H Pulse Oximetry 95 12/10/19 18:00 12/10/19 19:35 12/10/19 19:39 Temperature 36.2 C L Pulse Rate 103 H 95 101 H Respiratory Rate 20 16 Blood Pressure 156/79 H Pulse Oximetry 94 12/10/19 19:45 12/10/19 19:56 12/10/19 20:00 Temperature Pulse Rate 98 83 Respiratory Rate 20 Blood Pressure Pulse Oximetry 93 12/10/19 22:00 12/11/19 00:00 12/11/19 00:35 Temperature 36.2 C L Pulse Rate 83 98 107 H Respiratory Rate 18 Blood Pressure 149/70 H Pulse Oximetry 98 12/11/19 01:45 12/11/19 01:55 12/11/19 02:00 Temperature Pulse Rate 84 87 100 Respiratory Rate 20 20 Blood Pressure Pulse Oximetry 12/11/19 04:00 12/11/19 04:24 12/11/19 05:45 Temperature 36.8 C Pulse Rate 100 98 103 H Respiratory Rate 16 Blood Pressure 151/79 H Pulse Oximetry 96 12/11/19 06:00 12/11/19 08:00 12/11/19 09:55 Temperature 36.2 C L Pulse Rate 77 94 99 Respiratory Rate 20 20 Blood Pressure 145/69 H Pulse Oximetry 94 12/11/19 09:59 12/11/19 10:00 12/11/19 10:07 Temperature Pulse Rate 88 94 Respiratory Rate 20 Blood Pressure Pulse Oximetry 94 Intake/Output Intake/Output: Intake & Output 12/08/19 12/09/19 12/10/19 12/11/19 23:59 23:59 23:59 23:59 Intake Total 4397 5435 5618 1091 Output Total 1095 3600 3650 1445 Balance 3302 1835 1968 354 Meds/Results Medications: Active Medications Generic Name Dose Route Start Last Admin Trade Name Freq PRN Reason Stop Dose Admin Acetaminophen 650 mg 12/03/19 11:46 Tylenol Tablet PO Q4H PRN Mild Pain (1-3) or Headache Dextrose 12.5 gm 12/01/19 23:12 Dextrose 50% Syringe IV PUSH PRN PRN Hypoglycemia Protocol Docusate Sodium 100 mg 12/11/19 09:00 12/11/19 10:37 Colace Liquid PO 100 mg Q12HR IRIS Administration Dornase Yfn 2.5 mg 12/08/19 20:00 12/10/19 19:35 Pulmozyme INHALATION 2.5 mg Q12HRT IRIS Administration Enoxaparin Sodium 30 mg 12/07/19 09:00 12/11/19 09:58 Lovenox SUB-Q 30 mg DAILY IRIS Administration Glimepiride 2 mg 12/02/19 08:00 12/03/19 09:32 Amaryl PO Not Given DAILY@0800 IRIS Glucagon 1 mg 12/01/19 23:12 Glucagon For Inj IM PRN PRN Hypoglycemia Protocol Glucose 15 gm 12/01/19 23:12 Glutose 15 PO PRN PRN Hypoglycemia Protocol Guaifenesin 600 mg 12/02/19 21:00 12/03/19 09:33 Mucinex 12 Hr Tab PO 600 mg Q12HR IRIS Administration Dextrose 1,000 mls @ 100 mls/hr 12/01/19 23:12 Dextrose 5% 1,000 Ml IVPB PRN PRN Hypoglycemia Protocol Metronidazole 500 mg in 100 mls @ 100 mls/hr 12/02/19 06:20 12/11/19 06:45 Flagyl 500 Mg/Iso Soln 100 Ml IVPB Infused Q6HR IRIS Infusion Levofloxacin/Dextrose 750 mg in 150 mls @ 100 mls/hr 12/03/19 18:00 12/09/19 19:35 Levaquin 750 Mg/D5w 150 Ml IVPB Infused Q48H IRIS Infusion Dextrose 1,000 mls @ 50 mls/hr 12/07/19 07:13 Dextrose 10% IV CONT .Q20H PRN if PN is interrupted
[2019-12-11 12:31] LABS: CMV IgG Antibody <0.60 U/mL (<0.60)
[2019-12-11 12:41] LABS: Glucose Point of Care 241 (65-105)
[2019-12-11 13:30] LABS: Glucose Point of Care 245 (65-105)
--- NOTE | 2019-12-11 16:07 | PM.IMPN ---
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 Lucas. 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 The pt does have a hx of colonic ileus in 2017. Rectal tube was placed per Dr. Saenz's recommendations and discussion with Dr. Mazariegos as well. The pt tolerated clamping trial of the NG tube yesterday. Abdominal xray repeated 12/11/19 with dilated gas, distended small bowel segments, and prominent gaseous distention. Management per GI. General surgery is also on board as well. Pt is on Clinimix TPN. Management per general surgery. (2) Asthma: Code(s): J45.909 - Unspecified asthma, uncomplicated Status: Acute Assessment and Plan: Does not appear to be in exacerbation. Pt did have increased nebulizer use with her recent episode of PNA. Pt without wheezing and dyspnea. O2 requirements have decreased to 2L NC. Will change nebulizers to Q6HR PRN Will discontinue IV solumedrol as pt has no wheezing and seems to be improving. Pt was on low dose. Continue IS and chest physiotherapy (3) Acute respiratory failure: Code(s): J96.00 - Acute respiratory failure, unspecified whether with hypoxia or hypercapnia Status: Acute Assessment and Plan: Pt is on 2L. She denies SOB, cough, and palpitations. Suspect that her hypoxia is due to primarily to atelectasis and decreased activity. Continue PT/OT, increased activity, OOB to chair Continue nebulizers PRN Continue chest physiotherapy and IS Continue pulmozyme Wean oxygen as tolerated (4) Diarrhea: Qualifiers: Diarrhea type: unspecified type Qualified Code(s): R19.7 - Diarrhea, unspecified Code(s): R19.7 - Diarrhea, unspecified Status: Resolved Assessment and Plan: The pt had diarrhea initially after a two week course of levaquin. IV flagyl was initiated 12/01 and IV levaquin 12/02. Dr. Lucas requested that IV flagyl and IV levaquin continue with last dose of both today (12/10) Continue PO Vancomycin for 10 days (5) Acute on chronic renal failure: Qualifiers: Acute renal failure type: unspecified Chronic kidney disease stage: stage 3 (moderate) Qualified Code(s): N17.9 - Acute kidney failure, unspecified; N18.3 - Chronic kidney disease, stage 3 (moderate) Code(s): N17.9 - Acute kidney failure, unspecified; N18.9 - Chronic kidney disease, unspecified Status: Acute Assessment and Plan: Cr is back to baseline Pt is on TPN per general surgery Discontinue additional IV fluids as Cr has stabilized and pt appears fluid positive Continue to monitor renal function (6) Benign essential hypertension: Code(s): I10 - Essential (primary) hypertension Status: Chronic Assessment and Plan: Blood pressure reviewed and improving. Continue metoprolol IV until pt is tolerating PO intake well and can resume HCTZ and lisinopril Will continue to monitor (7) DM type 2 (diabetes mellitus, type 2): Code(s): E11.9 - Type 2 diabetes mellitus without complications Status: Chronic Assessment and Plan: Blood sugars reviewed today and elevated. Will hold [employer] hypoglycemic glimepiride Continue ACHS, SSI, and hypoglycemic protocol Continue lantus to 15mg QHS (8) Abnormal CT scan, kidney: Code(s): R93.429 - Abnormal radiologic findings on diagnostic imaging of unspecified kidney Status: Acute Assessment and Plan: CT scan performed on 12/03/19 reveals incidental finding of irregularity to both kidney margins which cannot exclude an underlying solid mass. Additionally, reveals 2 cm exophytic right renal cyst. This was also visualized on CT chest wo contast and not compatible with a simple renal cyst. US correlation is recommen
--- NOTE | 2019-12-11 16:18 | PM.PNGS ---
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 Incision looks good without signs of infection or drainage. PT/OT working with the patient and needs to continue to increase activity. Continue IS use. Consistent with colonic ileus or Quimby's syndrome. Would recommend continuing antibiotics for at least a week week. Management per Hospitalist and GI. Real mariana clamping NG. An allowing clear liquids. Then NG back to low intermittent suction overnight cm which comes out. If doing well could perhaps have this out or be used for a trial of tube feedings tomorrow. (2) Morbid obesity due to excess calories: Code(s): E66.01 - Morbid (severe) obesity due to excess calories Status: Chronic (3) Acute on chronic renal failure: Qualifiers: Acute renal failure type: unspecified Chronic kidney disease stage: stage 3 (moderate) Qualified Code(s): N17.9 - Acute kidney failure, unspecified; N18.3 - Chronic kidney disease, stage 3 (moderate) Code(s): N17.9 - Acute kidney failure, unspecified; N18.9 - Chronic kidney disease, unspecified Status: Acute Assessment and Plan: Creatinine 1.8 and BUN 70 today, slightly improved. Management per Hospitalist. (4) Protein-calorie malnutrition, moderate: Code(s): E44.0 - Moderate protein-calorie malnutrition Status: Acute Assessment and Plan: Continue Clinimix TPN. (5) COPD (chronic obstructive pulmonary disease): Qualifiers: COPD type: unspecified COPD Qualified Code(s): J44.9 - Chronic obstructive pulmonary disease, unspecified Code(s): J44.9 - Chronic obstructive pulmonary disease, unspecified Status: Chronic (6) DM type 2 (diabetes mellitus, type 2): Code(s): E11.9 - Type 2 diabetes mellitus without complications Status: Chronic Assessment and Plan: Monitor and sliding scale. (7) Benign essential hypertension: Code(s): I10 - Essential (primary) hypertension Status: Chronic Additional Plan Continue TPN until NG can be out Agree with continued IV antibiotics and care by GI. Subjective Subjective Date/Time Seen: 12/11/19 16:18 Patient sleeping comfortable will when I entered the room. She awakened easily. She denies abdominal pain. She states she stood at the bedside with PT today. She states she is passing flatus. She requests to be able to have more ice chips. Nurse reports she is not complaining of any nausea and NG has been clamped since 11:00 a.m. today. Review of Systems Review of Systems: All systems reviewed & are unremarkable except as noted in HPI and below Constitutional: Constitutional: Denies headache(s) and Denies malaise ENT: Denies headache(s) Cardiovascular: Cardiovascular: Denies chest pain and Denies dyspnea Respiratory: Respiratory: Denies cough and Denies dyspnea Gastrointestinal: Gastrointestinal: Reports as per HPI, Denies abdominal pain, Denies GI cramping and Denies nausea Neurologic: Denies confusion, Denies headache(s) and Denies Sensory deficit (Neuro) Psychiatric: Psychiatric: Denies confusion Exam Const: General: comfortable, no acute distress, awake and Physically active; No confusion Nutritional Appearance: obese Orientation/consciousness: No confusion HENMT: Head: normocephalic and atraumatic Ears: hearing grossly normal bilaterally and external ears normal General nose exam: Normal external nose present, no nasal discharge noted and no epistaxis Face and sinus: normal facial exam, face symmetric, no tenderness and dry mucous membranes Mouth: Yes Normal oral and palatal mucosa present and No tongue abnormal Chest: Chest palpation & inspection: mass and no tenderness GI: Inspection: incision (DRESSING DRY AND INTACT), obesity, scar ( Midline abdominal sca
[2019-12-11 16:26] LABS: HSV 1 IgM Screen Negative (Negative); HSV 2 IgM Screen Negative (Negative)
[2019-12-11 17:16] LABS: Glucose Point of Care 258 (65-105)
[2019-12-11] MEDS: MAGNESIUM HYDROXIDE SUSP 30 ML UDC FEED TUBE (18:20)
[2019-12-11 20:06] LABS: EBV Nuclear Ab Interpretation Past; EBV Virus Capsid Ag IgG Ab >750.00 U/mL (<18.00); EBV Virus Capsid Ag IgM Ab <36.00 U/mL (<36.00)
--- NOTE | 2019-12-11 20:35 | PM.CNPUL ---
Assessment and Plan Assessment and plan (1) Asthma: Qualifiers: Asthma complication type: uncomplicated Asthma persistence: unspecified Asthma severity: unspecified severity Qualified Code(s): J45.909 - Unspecified asthma, uncomplicated Code(s): J45.909 - Unspecified asthma, uncomplicated Status: Chronic Assessment and Plan: Has a history of asthma, has not been wheezing recently, and has had very low oxygen requirements. 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 History of Present Illness History of Present Illness Consult date: 01/18/20 Requesting physician: Mary Ann Ennis PA-C Reason for consult: dyspnea Chief complaint: Small bowel obstruction Narrative: Date of consult: Dec 11, 2019. Cristina Bravo is a 79 yo female with hypertension diabetes obesity who is today postop day 5 from exploratory lap for concern regarding small-bowel obstruction. This was due to a colonic ileus/Marielle syndrome, had a previous episode in 2016. She has developed shortness of breath. She does have a prior history of asthma. She was admitted on November. She had an episode of suspected pneumonia prior to this admission, saw Dr Zarate in the office Nov 28 with cough and weathers sputum production. He prescribed Levaquin and albuterol using a nebulizer, and her symptoms improved. CXR 11/28/2019 = basilar infiltrates v atelectasis. Chest CT 12/08/19 17:08 IMPRESSION: 1. Linear pleural-based left lower lobe nodule, superior segment measuring 1.6 x 0.9 x 0.5 cm. This may be infectious/inflammatory, although malignancy is not excluded. 2: Small right pleural effusion. 3: Bibasilar atelectasis/scarring. 4: 2.3 cm right renal mass at the upper pole, slightly increased in size compared with prior examination measuring 25 Hounsfield units, not compatible with a simple cyst. Recommend correlation with ultrasound on a nonemergent basis. Review of Systems Review of Systems: All systems reviewed & are unremarkable except as noted in HPI and below REPLACED BY [facility] Past Medical History Medical History (Updated 12/28/19 @ 11:26 by Mary Ann Ennis PA-C) Anemia Asthma Back pain Benign essential hypertension Bronchitis Cataracts, bilateral Chronic kidney disease, stage 3 With baseline creatinine between 1.2-1.4 Colon distention Compression fracture of thoracic spine, non-traumatic COPD (chronic obstructive pulmonary disease) Cough DM type 2 (diabetes mellitus, type 2) DVT (deep venous thrombosis) LLE Eczema Elevated serum creatinine Encounter for routine adult health examination without abnormal findings HTN (hypertension) Hx of colonic polyps Hyperlipidemia Hypothyroid Hypothyroidism (acquired) Left wrist fracture Melena [employer] drug therapy Pneumonia Rheumatoid arthritis Seasonal allergies Torn rotator cuff right Umbilical hernia Uterine cancer Surgical History Surgical History H/O breast biopsy bilateral H/O dilation and curettage H/O total hysterectomy History of knee replacement, total right History of orthopedic surgery left hip surgery, left femur surgery Hx of cholecystectomy Hx of tonsillectomy Family History Family History Mother Osteoporosis Father Acute myocardial infarction Social History Social History Social History: Primary care physician: Dr. Puneet Zarate Code status: Full code Smoking packs per day: 2 Smoking cigarettes per day: 40.0 Years smoked: 5 Smoking pack-years: 10.00 Smoking status: Former smoker Second hand tobacco smoke exposure: No Smoking end date: 09/28/78 Alcohol intake: never Substance use: never Living arrangements: with family [place]
[2019-12-11] MEDS: INSULIN GLARGINE (*BKC) 100 UNITS/ML 15 UNITS SUB-Q (21:10)
[2019-12-11 21:19] LABS: Glucose Point of Care 347 (65-105)
[2019-12-12] VITALS (26 sets, daily range): BP systolic 115–158; BP diastolic 56–94; PULSE 87–110; RESP 14–28; TEMP 36.2–36.7; O2SAT 94–99
[2019-12-12] MEDS: IPRATROPIUM BR 0.02% INH SOLN 0.5 MG/2.5 ML VIAL INHALATION ×3 (03:37→21:21)
[2019-12-12] MEDS: METOPROLOL TARTRATE INJ 5 MG/5 ML VIAL IV PUSH ×4 (05:35→23:54)
[2019-12-12] MEDS: LEVOTHYROXINE SODIUM INJ 100 MCG/5 ML VIAL 56 MCG IV PUSH (05:36)
[2019-12-12] MEDS: VANCOMYCIN ORAL 125 MG/2.5 ML SYRUP PO (05:36)
[2019-12-12] MEDS: METOCLOPRAMIDE HCL INJ 10 MG/2 ML VIAL IV PUSH ×4 (05:56→23:51)
[2019-12-12 06:59] LABS: Hematocrit 31.7 % (37.0-47.0); Hemoglobin 9.7 g/dL (12.0-15.0); Mean Corpuscular HGB Conc 30.6 g/dl (32-36); Mean Corpuscular Hemoglobin 30.6 pg (26-34); Mean Platelet Volume 10.3 fl (7.4-10.4); Platelet Count Result 191 k/mm3 (150-375); Red Blood Count 3.17 M/mm3 (4.2-5.4); Red Cell Distribution Width 13.8 % (11.5-14.5); White Blood Count 20.8 K/mm3 (4.5-10.0)
[2019-12-12 07:09] LABS: INR 1.1; Prothrombin Time 13.4 Seconds (11.1-14.7)
[2019-12-12 07:10] LABS: Partial Thromboplastin Time 25.3 SECONDS (22.3-36.8)
--- NOTE | 2019-12-12 07:16 | PM.PNGS ---
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 If goes through with fairly reasonable transit, will DC NG and start liquids. If still shows significant ileus or failure to pass contrast, I would recommend transferring patient as we are really not making much progress with this. Discussed this with hospitalist, Mary Ann Ennis. (2) Protein-calorie malnutrition, moderate: Code(s): E44.0 - Moderate protein-calorie malnutrition Status: Acute Assessment and Plan: continue TPN for now. Subjective Subjective Date/Time Seen: 12/12/19 07:16 No abdominal pain. Had some diarrhea or loose stools over the weekend. Review of Systems Review of Systems: All systems reviewed & are unremarkable except as noted in HPI and below Constitutional: Constitutional: Denies chills, Denies fever(s) and Denies headache(s) ENT: Denies headache(s) Cardiovascular: Cardiovascular: Denies chest pain and Denies dyspnea Respiratory: Respiratory: Denies cough and Denies dyspnea Gastrointestinal: Gastrointestinal: Reports as per HPI Neurologic: Denies confusion and Denies headache(s) Psychiatric: Psychiatric: Denies confusion Exam Const: General: comfortable and no acute distress; No confusion Orientation/consciousness: patient oriented x3 and No confusion GI: Inspection: distended, incision ( Healing well.) and obesity GI Palp: Yes Soft to palpation, No Tenderness to palpation present (GI), No Guarding due to palpation present (GI) and No Rebound tenderness present Auscultation: High-pitched bowel sounds present Neuro: General: patient oriented x3, no focal motor deficits and No confusion Extrem: General: no calf tenderness and no edema Psych: Affect: normal affect Insight: Good insight present (Psych) Judgement: Good judgement present (Psych) Objective Data Vital Signs Vital Signs: Vital Signs - 24 hr 12/11/19 08:00 12/11/19 09:55 12/11/19 09:59 Temperature 36.2 C L Pulse Rate 94 99 Respiratory Rate 20 20 Blood Pressure 145/69 H Pulse Oximetry 94 94 12/11/19 10:00 12/11/19 10:07 12/11/19 12:00 Temperature Pulse Rate 88 94 90 Respiratory Rate 20 20 Blood Pressure Pulse Oximetry 94 12/11/19 13:10 12/11/19 13:13 12/11/19 14:00 Temperature 36.3 C L Pulse Rate 98 89 97 Respiratory Rate 20 Blood Pressure 150/71 H Pulse Oximetry 96 12/11/19 16:00 12/11/19 16:09 12/11/19 18:00 Temperature 36.1 C L Pulse Rate 98 101 H 106 H Respiratory Rate 18 18 Blood Pressure 152/66 H Pulse Oximetry 97 12/11/19 18:23 12/11/19 20:00 12/11/19 21:20 Temperature 36.8 C Pulse Rate 98 85 107 H Respiratory Rate 18 Blood Pressure 150/70 H Pulse Oximetry 97 96 12/11/19 22:00 12/11/19 22:33 12/11/19 23:43 Temperature Pulse Rate 105 H 106 H Respiratory Rate Blood Pressure Pulse Oximetry 96 12/12/19 00:00 12/12/19 02:00 12/12/19 03:40 Temperature 36.6 C Pulse Rate 109 H 106 H 106 H Respiratory Rate 22 H Blood Pressure 143/62 H Pulse Oximetry 96 12/12/19 03:48 12/12/19 04:00 12/12/19 05:35 Temperature 36.2 C L Pulse Rate 104 H 106 H 99 Respiratory Rate 22 H Blood Pressure 143/56 H Pulse Oximetry 95 12/12/19 06:00 Temperature Pulse Rate 87 Respiratory Rate Blood Pressure Pulse Oximetry Intake/Output Intake/Output: Intake & Output 12/09/19 12/10/19 12/11/19 12/12/19 23:59 23:59 23:59 23:59 Intake Total 9044 5617 3689 1131 Output Total 3600 3650 2270 1150 Balance 1835 [facility] 1419 -19 Meds/Results Medications: Active Medications Generic Name Dose Route Start Last Admin Trade Name Freq PRN Reason Stop Dose Admin Acetaminophen 650 mg 12/03/19 11:46 Tylenol Tablet PO Q4H PRN
[2019-12-12 07:44] LABS: Triglycerides 261 mg/dL (<150)
[2019-12-12 08:10] LABS: Alanine Aminotransferase 11 U/L (4-35); Albumin Level 2.4 g/dL (3.5-5.1); Alkaline Phosphatase 47 U/L (38-126); Aspartate Amino Transferase 14 U/L (14-36); Bilirubin,Total 0.2 mg/dL (0.2-1.3); Blood Urea Nitrogen 54 mg/dL (7-17); Calcium 7.6 mg/dL (8.4-10.2); Carbon Dioxide 31 mmol/L (22-30); Chloride 103 mmol/L (98-107); Estimated CRCL calculation 38 ml/min; Estimated Glomerular Filt Rate 36; Glucose 270 mg/dL (65-105); Magnesium 1.7 mg/dL (1.6-2.3); Phosphorus 2.9 mg/dL (2.5-4.5); Potassium 3.4 mmol/L (3.4-5.0); Sodium 138 mmol/L (137-145)
[2019-12-12 08:12] LABS: Iron 55 ug/dL (37-170)
[2019-12-12] MEDS: PANTOPRAZOLE SODIUM IV 40 MG VIAL IV PUSH ×2 (08:16→21:19)
[2019-12-12] MEDS: ENOXAPARIN 30 MG/0.3 ML SYRINGE SUB-Q (08:16)
[2019-12-12 08:18] LABS: Transferrin 135 mg/dL (206-381)
[2019-12-12] MEDS: INSULIN ASPART (*BKC) 100 UNITS/ML SUB-Q ×3 (08:19→19:15)
--- NOTE | 2019-12-12 08:27 | PC.NURSE ---
Pt off floor to Xray at 08:25
[2019-12-12 08:57] LABS: Glucose Point of Care 258 (65-105)
[2019-12-12 09:17] LABS: Folic Acid 10.6 ng/mL (2.76->20)
--- NOTE | 2019-12-12 11:30 | PC.NURSE ---
Patient returned from Xray at 11:30 tolerated procedure well
[2019-12-12 12:29] LABS: Glucose Point of Care 257 (65-105)
--- NOTE | 2019-12-12 12:38 | WPDGIPROGNO ---
Subjective Date/time seen: 12/12/19 12:38 Objective Data Vital Signs Vital Signs: Vital Signs - 24 hr 12/11/19 13:10 12/11/19 13:13 12/11/19 14:00 Temperature 36.3 C L Pulse Rate 98 89 97 Respiratory Rate 20 Blood Pressure 150/71 H Pulse Oximetry 96 12/11/19 16:00 12/11/19 16:09 12/11/19 18:00 Temperature 36.1 C L Pulse Rate 98 101 H 106 H Respiratory Rate 18 18 Blood Pressure 152/66 H Pulse Oximetry 97 12/11/19 18:23 12/11/19 20:00 12/11/19 21:20 Temperature 36.8 C Pulse Rate 98 85 107 H Respiratory Rate 18 Blood Pressure 150/70 H Pulse Oximetry 97 96 12/11/19 22:00 12/11/19 22:33 12/11/19 23:43 Temperature Pulse Rate 105 H 106 H Respiratory Rate Blood Pressure Pulse Oximetry 96 12/12/19 00:00 12/12/19 02:00 12/12/19 03:40 Temperature 36.6 C Pulse Rate 109 H 106 H 106 H Respiratory Rate 22 H Blood Pressure 143/62 H Pulse Oximetry 96 12/12/19 03:48 12/12/19 04:00 12/12/19 05:35 Temperature 36.2 C L Pulse Rate 104 H 106 H 99 Respiratory Rate 22 H Blood Pressure 143/56 H Pulse Oximetry 95 12/12/19 06:00 12/12/19 08:00 Temperature 36.2 C L Pulse Rate 87 99 Respiratory Rate 26 H Blood Pressure 147/64 H Pulse Oximetry 97 Intake/Output Intake/Output: Intake & Output 12/09/19 12/10/19 12/11/19 12/12/19 23:59 23:59 23:59 23:59 Intake Total 9260 2480 3688 1131 Output Total 3600 3650 2270 1150 Balance 1835 1968 1419 -19 Meds/Results Medications: Active Medications Generic Name Dose Route Start Last Admin Trade Name Freq PRN Reason Stop Dose Admin Acetaminophen 650 mg 12/03/19 11:46 Tylenol Tablet PO Q4H PRN Mild Pain (1-3) or Headache Dextrose 12.5 gm 12/01/19 23:12 Dextrose 50% Syringe IV PUSH PRN PRN Hypoglycemia Protocol Dornase Yfn 2.5 mg 12/08/19 20:00 12/11/19 21:19 Pulmozyme INHALATION 2.5 mg Q12HRT IRIS Administration Enoxaparin Sodium 30 mg 12/07/19 09:00 12/12/19 08:16 Lovenox SUB-Q 30 mg DAILY IRIS Administration Glimepiride 2 mg 12/02/19 08:00 12/03/19 09:32 Amaryl PO Not Given DAILY@0800 IRIS Glucagon 1 mg 12/01/19 23:12 Glucagon For Inj IM PRN PRN Hypoglycemia Protocol Glucose 15 gm 12/01/19 23:12 Glutose 15 PO PRN PRN Hypoglycemia Protocol Guaifenesin 600 mg 12/02/19 21:00 12/03/19 09:33 Mucinex 12 Hr Tab PO 600 mg Q12HR IRIS Administration Dextrose 1,000 mls @ 100 mls/hr 12/01/19 23:12 Dextrose 5% 1,000 Ml IVPB PRN PRN Hypoglycemia Protocol Levofloxacin/Dextrose 750 mg in 150 mls @ 100 mls/hr 12/03/19 18:00 12/11/19 19:59 Levaquin 750 Mg/D5w 150 Ml IVPB Infused Q48H IRIS Infusion Dextrose 1,000 mls @ 50 mls/hr 12/07/19 07:13 Dextrose 10% IV CONT .Q20H PRN if PN is interrupted Multivitamins 5 ml/ Amino 2,005 mls @ 40 mls/hr 12/07/19 09:00 12/12/19 05:30 Acids/Electrolytes/Dextrose IV CONT 40 mls/hr .Q24H IRIS Infusion Protocol Fat Emulsion Intravenous 250 mls @ 20.833 mls/hr 12/07/19 10:00 12/12/19 03:05 Lipids 20% IVPB Infused Q24H IRIS Infusion Insulin Aspart 3 - 6 units 12/09/19 08:00 12/12/19 08:19 Novolog SUB-Q 4 units TIDWM IRIS Administration Protocol Insulin Glargine 15 units 12/10/19 14:47 12/11/19 21:10 Lantus SUB-Q 15 units HS IRIS Administration Ipratropium [place] 0.5 mg 12/11/19 18:04 12/12/19 03:37 Atrovent Neb INHALATION 0.5 mg Q6HR PRN Administration Shortness of breath, Wheezing Lactobacillus Acidophilus 1 tablet 12/03/19 13:00 12/03/19 14:00 Lactinex Chewable Tablet PO 1 tablet QID IRIS Administration Levalbuterol HCl 1.25 mg 12/11/19 18:04 12/12/19 03:37 Xopenex 1.25 Mg/0.5 Ml INHALATION 1.25 mg Q6HR PRN Administration Shortness Of Breath Wheezing Levothyroxine Sodium 56 mcg 12/04/19 06:30
--- NOTE | 2019-12-12 12:40 | WPDGIPROGNO ---
Subjective Date/time seen: 12/12/19 12:40 Patient is short of breath. She now has a fecal containment device placed due to significant diarrhea. She denies any abdominal pain. Small-bowel series revealed no obstruction., however the colon was still somewhat dilated. Heart rate and rhythm were regular. Lungs decreased breath sounds bilaterally with rhonchi and rales. Impression: Persistent ileus. Now having diarrhea. Presently on treatment C diff. Leukocytosis. May be secondary to above. Increasing shortness of breath. This may be secondary underlying atelectasis/COPD. Malnutrition. Recent pneumonia. History of adenomatous colon polyps. Last colonoscopy was September of 2018. Diabetes mellitus. Hypertension. Hyperlipidemia. Chronic kidney disease. COPD. Hypothyroidism. Rheumatoid arthritis. DVT by history. Obesity. Recommendation: Recheck laboratory studies. Repeat KUB in the morning. Continue vancomycin empirically. Continue TPN. Objective Data Vital Signs Vital Signs: Vital Signs - 24 hr 12/11/19 13:10 12/11/19 13:13 12/11/19 14:00 Temperature 36.3 C L Pulse Rate 98 89 97 Respiratory Rate 20 Blood Pressure 150/71 H Pulse Oximetry 96 12/11/19 16:00 12/11/19 16:09 12/11/19 18:00 Temperature 36.1 C L Pulse Rate 98 101 H 106 H Respiratory Rate 18 18 Blood Pressure 152/66 H Pulse Oximetry 97 12/11/19 18:23 12/11/19 20:00 12/11/19 21:20 Temperature 36.8 C Pulse Rate 98 85 107 H Respiratory Rate 18 Blood Pressure 150/70 H Pulse Oximetry 97 96 12/11/19 22:00 12/11/19 22:33 12/11/19 23:43 Temperature Pulse Rate 105 H 106 H Respiratory Rate Blood Pressure Pulse Oximetry 96 12/12/19 00:00 12/12/19 02:00 12/12/19 03:40 Temperature 36.6 C Pulse Rate 109 H 106 H 106 H Respiratory Rate 22 H Blood Pressure 143/62 H Pulse Oximetry 96 12/12/19 03:48 12/12/19 04:00 12/12/19 05:35 Temperature 36.2 C L Pulse Rate 104 H 106 H 99 Respiratory Rate 22 H Blood Pressure 143/56 H Pulse Oximetry 95 12/12/19 06:00 12/12/19 08:00 Temperature 36.2 C L Pulse Rate 87 99 Respiratory Rate 26 H Blood Pressure 147/64 H Pulse Oximetry 97 Intake/Output Intake/Output: Intake & Output 12/09/19 12/10/19 12/11/19 12/12/19 23:59 23:59 23:59 23:59 Intake Total 5436 9135 3689 1131 Output Total 3600 3650 2270 1150 Balance 1835 1968 1419 -19 Meds/Results Medications: Active Medications Generic Name Dose Route Start Last Admin Trade Name Freq PRN Reason Stop Dose Admin Acetaminophen 650 mg 12/03/19 11:46 Tylenol Tablet PO Q4H PRN Mild Pain (1-3) or Headache Dextrose 12.5 gm 12/01/19 23:12 Dextrose 50% Syringe IV PUSH PRN PRN Hypoglycemia Protocol Dornase Yfn 2.5 mg 12/08/19 20:00 12/11/19 21:19 Pulmozyme INHALATION 2.5 mg Q12HRT IRIS Administration Enoxaparin Sodium 30 mg 12/07/19 09:00 12/12/19 08:16 Lovenox SUB-Q 30 mg DAILY IRIS Administration Glimepiride 2 mg 12/02/19 08:00 12/03/19 09:32 Amaryl PO Not Given DAILY@0800 IRIS Glucagon 1 mg 12/01/19 23:12 Glucagon For Inj IM PRN PRN Hypoglycemia Protocol Glucose 15 gm 12/01/19 23:12 Glutose 15 PO PRN PRN Hypoglycemia Protocol Guaifenesin 600 mg 12/02/19 21:00 12/03/19 09:33 Mucinex 12 Hr Tab PO 600 mg Q12HR IRIS Administration Dextrose 1,000 mls @ 100 mls/hr 12/01/19 23:12 Dextrose 5% 1,000 Ml IVPB PRN PRN Hypoglycemia Protocol Levofloxacin/Dextrose 750 mg in 150 mls @ 100 mls/hr 12/03/19 18:00 12/11/19 19:59 Levaquin 750 Mg/D5w 150 Ml IVPB Infused Q48H IRIS Infusion Dextrose 1,000 mls @ 50 mls/hr 12/07/19 07:13 Dextrose 10% IV CONT .Q20H PRN if PN is interrupted Multivitamins 5 ml/ Amino 2,005 mls @ 40 mls/hr 12/07/19 09:00 12/12/19 05:30 Acids/Electrolytes/Dextrose IV CONT 40
[2019-12-12] MEDS: DORNASE ALFA INH SOLN 1 MG/ML 2.5 ML AMP 2.5 MG INHALATION ×2 (13:08→21:27)
[2019-12-12 13:19] LABS: Glucose Point of Care 297 (65-105)
[2019-12-12] MEDS: FAT EMULSIONS IV 20% 250 ML 20.8 ML IVPB (13:28)
[2019-12-12 14:16] LABS: Mean Corpuscular HGB Conc 31.3 g/dl (32-36); Mean Corpuscular Hemoglobin 30.8 pg (26-34); Mean Corpuscular Volume 98.5 fl (80-100); Platelet Count Result 192 k/mm3 (150-375); Red Blood Count 3.25 M/mm3 (4.2-5.4); Red Cell Distribution Width 13.9 % (11.5-14.5); White Blood Count 18.5 K/mm3 (4.5-10.0)
--- NOTE | 2019-12-12 14:19 | PC.NURSE ---
Contacted Mary Ann Ennis regarding patients respiratory status. She said she will be in to see her and listen to her lungs 14:20
[2019-12-12 14:33] LABS: Blood Urea Nitrogen 56 mg/dL (7-17); Calcium 7.9 mg/dL (8.4-10.2); Carbon Dioxide 32 mmol/L (22-30); Chloride 104 mmol/L (98-107); Estimated CRCL calculation 38 ml/min; Estimated Glomerular Filt Rate 36; Glucose 311 mg/dL (65-105); Magnesium 1.9 mg/dL (1.6-2.3); Phosphorus 3.5 mg/dL (2.5-4.5); Potassium 4.1 mmol/L (3.4-5.0); Sodium 136 mmol/L (137-145)
--- NOTE | 2019-12-12 14:44 | PM.PNPUL ---
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 - consider checking TSH as cause - keep electrolytes within normal limits - Pt is on scheduled Reglan, I'm not sure if this is indicated. Please check with GI. Subjective Date/time seen: 12/12/19 14:44 Interval history: Pt is in bed and very weak. She has a distended abdomen which is soft. This is undoubtedly causing some dyspnea. She has underlying Asthma. I viewed her CT chest from admission which showed some bilateral atelectasis but no significant pneumonic infiltrates. Review of Systems Review of Systems: All systems reviewed & are unremarkable except as noted in HPI and below Exam Const: General: uncomfortable HENMT: Mouth: Yes moist mucous membranes Neck: Neck: supple and no JVD Resp: Auscultation: wheezes Cardio: Rate: regular rate Rhythm: regular rhythm Heart sounds: no murmurs GI: Inspection: distended Auscultation: abnormal bowel sounds Neuro: Speech: normal speech Extrem: General: normal to inspection Psych: Affect: normal affect Objective Data Vital Signs Vital Signs: Vital Signs - 24 hr 12/11/19 16:00 12/11/19 16:09 12/11/19 18:00 Temperature 36.1 C L Pulse Rate 98 101 H 106 H Respiratory Rate 18 18 Blood Pressure 152/66 H Pulse Oximetry 97 12/11/19 18:23 12/11/19 20:00 12/11/19 21:20 Temperature 36.8 C Pulse Rate 98 85 107 H Respiratory Rate 18 Blood Pressure 150/70 H Pulse Oximetry 97 96 12/11/19 22:00 12/11/19 22:33 12/11/19 23:43 Temperature Pulse Rate 105 H 106 H Respiratory Rate Blood Pressure Pulse Oximetry 96 12/12/19 00:00 12/12/19 02:00 12/12/19 03:40 Temperature 36.6 C Pulse Rate 109 H 106 H 106 H Respiratory Rate 22 H Blood Pressure 143/62 H Pulse Oximetry 96 12/12/19 03:48 12/12/19 04:00 12/12/19 05:35 Temperature 36.2 C L Pulse Rate 104 H 106 H 99 Respiratory Rate 22 H Blood Pressure 143/56 H Pulse Oximetry 95 12/12/19 06:00 12/12/19 08:00 12/12/19 12:00 Temperature 36.2 C L 36.2 C L Pulse Rate 87 99 100 Respiratory Rate 26 H 24 H Blood Pressure 147/64 H 158/85 H Pulse Oximetry 97 98 12/12/19 13:05 12/12/19 13:14 12/12/19 13:23 Temperature Pulse Rate 107 H 110 H 104 H Respiratory Rate 18 Blood Pressure Pulse Oximetry Intake/Output Intake/Output: Intake & Output 12/09/19 12/10/19 12/11/19 12/12/19 23:59 23:59 23:59 23:59 Intake Total 5432 3029 3689 1441 Output Total 3600 3650 2270 1150 Balance 1835 1968 1419 291 Meds/Results Medications: Active Medications Generic Name Dose Route Start Last Admin Trade Name Freq PRN Reason Stop Dose Admin Acetaminophen 650 mg 12/03/19 11:46 Tylenol Tablet PO Q4H PRN Mild Pain (1-3) or Headache Dextrose 12.5 gm 12/01/19 23:12 Dextrose 50% Syringe IV PUSH PRN PRN Hypoglycemia Protocol Dornase Yfn 2.5 mg 12/08/19 20:00 12/12/19 13:08 Pulmozyme INHALATION 2.5 mg Q12HRT IRIS Administration Enoxaparin Sodium 30 mg 12/07/19 09:00 12/12/19 08:16 Lovenox SUB-Q 30 mg DAILY IRIS Administration Furosemide 40 mg 12/12/19 14:37 Lasix Inj IV PUSH 12/12/19 14:38 ONCE ONE Glimepiride 2 mg 12/02/19 08:00 12/03/19 09:32 Amaryl PO Not Given DAILY@0800 IRIS Glucagon 1 mg 12/01/19 23:12 Glucagon For Inj IM PRN PRN Hypoglycemia Protocol Glucose 15 gm 12/01/19 23:12 Glutose 15 PO PRN PRN Hypoglycemia Protocol Guaif
--- NOTE | 2019-12-12 14:53 | PCPTNOTE ---
Attempted PT this date 12/12/2019, however per RN: hold off on therapy due to patient retaining excess fluid and having difficulty breathing.
[2019-12-12] MEDS: FUROSEMIDE INJ 40 MG/4 ML VIAL IV PUSH (14:55)
[2019-12-12 19:19] LABS: Glucose Point of Care 323 (65-105)
[2019-12-12 20:18] LABS: Glucose Point of Care 348 (65-105)
[2019-12-12] MEDS: INSULIN GLARGINE (*BKC) 100 UNITS/ML 15 UNITS SUB-Q (21:20)
[2019-12-12] MEDS: BUDESONIDE RESPULE NEB 0.5 MG/2 ML AMP INHALATION (21:21)
--- NOTE | 2019-12-12 23:32 | PM.IMPN ---
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 Lucas. 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 The pt does have a hx of colonic ileus in 2017 treated with decompressive colonoscopy. Rectal tube was placed over the weekend at the request of Dr. Saenz to aid in colonic decompression. Discussed with Dr. Lucas today and pt may require transfer since we are not making progress and small bowel follow-through revealed severely distended gas and fluid filled colon. Management per GI. General surgery is also on board as well and has recommended transfer. Pt is on Clinimix TPN. Management per general surgery. (2) Asthma: Code(s): J45.909 - Unspecified asthma, uncomplicated Status: Chronic Assessment and Plan: Continue bronchodilators PRN Appreciate recommendations from pulmonology, begin bedesonide Continue IS and chest physiotherapy (3) Acute respiratory failure: Code(s): J96.00 - Acute respiratory failure, unspecified whether with hypoxia or hypercapnia Status: Acute Assessment and Plan: RN called after pt developed dyspnea following small bowel follow-through. I went to examine the pt and she had coarse breath sounds. She was felt to be fluid positive on physical exam and labs. STAT CXR repeated with congestive changes. 1 dose of IV lasix 40mg was administered. Pt may require additional IV lasix tomorrow Pulmonology recommendations are greatly appreciated. Colonic decompression should help her respiratory status. Continue PT/OT, increased activity, OOB to chair Continue nebulizers PRN Continue chest physiotherapy and IS Continue pulmozyme Wean oxygen as tolerated Continue to monitor (4) Diarrhea: Qualifiers: Diarrhea type: unspecified type Qualified Code(s): R19.7 - Diarrhea, unspecified Code(s): R19.7 - Diarrhea, unspecified Status: Acute Assessment and Plan: The pt had diarrhea initially after a two week course of levaquin. She is on empiric vancomycin for possible antibiotic associated diarrhea. She now has diarrhea through the rectal tube. Pt is on parenteral nutrition. This should improve once she can advance her diet. (5) Acute on chronic renal failure: Qualifiers: Acute renal failure type: unspecified Chronic kidney disease stage: stage 3 (moderate) Qualified Code(s): N17.9 - Acute kidney failure, unspecified; N18.3 - Chronic kidney disease, stage 3 (moderate) Code(s): N17.9 - Acute kidney failure, unspecified; N18.9 - Chronic kidney disease, unspecified Status: Acute Assessment and Plan: Cr is back to baseline. Urine output is adequate. Clinically, pt appears fluid positive, likely due to need for parenteral nutrition. 40mg IV lasix given today. Pt is on TPN per general surgery Continue to trend renal function (6) Benign essential hypertension: Code(s): I10 - Essential (primary) hypertension Status: Chronic Assessment and Plan: Blood pressure reviewed and improving. Suspect that her acute elevation is due to her acute illness. Continue metoprolol IV until pt is tolerating PO intake well and can resume prior to admission HCTZ and lisinopril Will continue to monitor (7) DM type 2 (diabetes mellitus, type 2): Code(s): E11.9 - Type 2 diabetes mellitus without complications Status: Chronic Assessment and Plan: Blood sugars reviewed today and elevated. Will hold BEAD STRINGER hypoglycemic glimepiride Continue ACHS, SSI, and hypoglycemic protocol Increase lantus to 20mg QHS (8) Abnormal CT scan, kidney: Code(s): R93.429 - Abnormal radiologic findings on diagnostic imaging of unspecified kidney Status: Acute Assessment a
[2019-12-13] VITALS (19 sets, daily range): BP systolic 114–157; BP diastolic 42–67; PULSE 68–104; RESP 20–30; TEMP 36.4–36.7; O2SAT 94–100
[2019-12-13 05:38] LABS: Basophils Absolute Auto 0.1 K/mm3 (0.0-0.1); Basophils Percent Auto 0.3 % (0.2-1.2); Eosinophils Absolute Auto 0.1 K/mm3 (0-0.3); Eosinophils Percent Auto 0.8 % (0-4.4); Hematocrit 33.3 % (37.0-47.0); Hemoglobin 9.9 g/dL (12.0-15.0); Immature Granulocyte Absolute 0.73 K/mm3 (0.00-0.031); Immature Granulocyte Percent A 4.6 % (0-0.5); Lymphocytes Absolute Auto 0.66 K/mm3 (0.9-3.2); Lymphocytes Percent Auto 4.2 % (18.3-44.2); Mean Corpuscular HGB Conc 29.7 g/dl (32-36); Mean Corpuscular Hemoglobin 30.2 pg (26-34); Mean Corpuscular Volume 101.5 fl (80-100); Mean Platelet Volume 10.1 fl (7.4-10.4); Monocytes Absolute Auto 0.8 K/mm3 (0.1-0.6); Monocytes Percent Auto 4.7 % (2.6-8.5); Neutrophils Absolute Auto 13.6 K/mm3 (1.3-6.7); Neutrophils Percent Auto 85.4 % (45.5-73.1); Platelet Count Result 206 k/mm3 (150-375); Red Blood Count 3.28 M/mm3 (4.2-5.4); Red Cell Distribution Width 14.2 % (11.5-14.5); White Blood Count 15.9 K/mm3 (4.5-10.0)
[2019-12-13 05:54] LABS: Alanine Aminotransferase 11 U/L (4-35); Albumin Level 2.8 g/dL (3.5-5.1); Alkaline Phosphatase 38 U/L (38-126); Aspartate Amino Transferase 13 U/L (14-36); Bilirubin,Total 0.3 mg/dL (0.2-1.3); Blood Urea Nitrogen 59 mg/dL (7-17); Carbon Dioxide 31 mmol/L (22-30); Chloride 105 mmol/L (98-107); Estimated CRCL calculation 36 ml/min; Estimated Glomerular Filt Rate 33; Glucose 328 mg/dL (65-105); Phosphorus 4.6 mg/dL (2.5-4.5); Potassium 4.3 mmol/L (3.4-5.0); Sodium 136 mmol/L (137-145)
[2019-12-13] MEDS: METOPROLOL TARTRATE INJ 5 MG/5 ML VIAL IV PUSH ×4 (06:03→23:56)
[2019-12-13] MEDS: METOCLOPRAMIDE HCL INJ 10 MG/2 ML VIAL IV PUSH ×3 (06:04→12:31)
[2019-12-13] MEDS: LEVOTHYROXINE SODIUM INJ 100 MCG/5 ML VIAL 56 MCG IV PUSH (06:07)
--- NOTE | 2019-12-13 07:18 | PCOTNOTE ---
Per RN, patient on fluid overload and not appropriate to be seen at this time for OT. Patient not seen for OT this AM.
[2019-12-13] MEDS: IPRATROPIUM BR 0.02% INH SOLN 0.5 MG/2.5 ML VIAL INHALATION (09:54)
[2019-12-13] MEDS: BUDESONIDE RESPULE NEB 0.5 MG/2 ML AMP INHALATION ×2 (09:54→22:21)
[2019-12-13] MEDS: DORNASE ALFA INH SOLN 1 MG/ML 2.5 ML AMP 2.5 MG INHALATION ×2 (09:56→22:21)
--- NOTE | 2019-12-13 10:13 | WPDGIPROGNO ---
Subjective Date/time seen: 12/13/19 10:13 The patient is very weak. She is not complaining of much of anything. Heart rate rhythm regular. Lungs decreased breath sounds bases. Rhonchi and rales. Abdomen is softer less distended. Bowel sounds very hypoactive. Persistent ileus/pseudo-obstruction. Presently on treatment C diff. Leukocytosis. May be secondary to above. Increasing shortness of breath. This may be secondary underlying atelectasis/COPD. Malnutrition. Recent pneumonia. History of adenomatous colon polyps. Last colonoscopy was September of 2018. Diabetes mellitus. Hypertension. Hyperlipidemia. Chronic kidney disease. COPD. Hypothyroidism. Rheumatoid arthritis. DVT by history. Obesity. Recommendation: Discuss case at length with General surgery and Pulmonary Medicine. Trying to determine if patient a candidate for colonic decompression. If not may consider neostigmine use. Continue NG tube decompression. Further recommendations will be forthcoming. Objective Data Vital Signs Vital Signs: Vital Signs - 24 hr 12/12/19 12:00 12/12/19 13:05 12/12/19 13:14 Temperature 36.2 C L Pulse Rate 101 H 107 H 110 H Respiratory Rate 24 H 18 Blood Pressure 158/85 H Pulse Oximetry 94 12/12/19 13:23 12/12/19 14:00 12/12/19 16:00 Temperature 36.6 C Pulse Rate 104 H 88 107 H Respiratory Rate 28 H Blood Pressure 115/94 H Pulse Oximetry 99 12/12/19 17:57 12/12/19 19:05 12/12/19 19:34 Temperature 36.6 C Pulse Rate 109 H 109 H 102 H Respiratory Rate 14 Blood Pressure 135/58 L Pulse Oximetry 97 12/12/19 20:00 12/12/19 21:22 12/12/19 21:24 Temperature Pulse Rate 92 99 Respiratory Rate 18 Blood Pressure Pulse Oximetry 96 12/12/19 21:25 12/12/19 21:32 12/12/19 22:00 Temperature Pulse Rate 99 100 Respiratory Rate 18 Blood Pressure Pulse Oximetry 96 12/12/19 23:39 12/12/19 23:54 12/13/19 00:00 Temperature 36.7 C Pulse Rate 103 H 98 83 Respiratory Rate 20 Blood Pressure 143/69 H Pulse Oximetry 96 12/13/19 02:00 12/13/19 04:00 12/13/19 06:00 Temperature 36.6 C Pulse Rate 100 101 H 100 Respiratory Rate 22 H Blood Pressure 153/65 H Pulse Oximetry 96 12/13/19 06:01 12/13/19 06:03 12/13/19 08:00 Temperature 36.5 C Pulse Rate 102 H 95 Respiratory Rate 20 Blood Pressure 148/57 H 149/59 H Pulse Oximetry 96 12/13/19 09:57 Temperature Pulse Rate 96 Respiratory Rate 20 Blood Pressure Pulse Oximetry Intake/Output Intake/Output: Intake & Output 12/10/19 12/11/19 12/12/19 12/13/19 23:59 23:59 23:59 23:59 Intake Total 0599 3689 1827 530 Output Total 2730 0829 2405 320 Balance 1968 7001 -573 -681 Meds/Results Medications: Active Medications Generic Name Dose Route Start Last Admin Trade Name Freq PRN Reason Stop Dose Admin Acetaminophen 650 mg 12/03/19 11:46 Tylenol Tablet PO Q4H PRN Mild Pain (1-3) or Headache Budesonide 0.5 mg 12/12/19 20:00 12/13/19 09:54 Pulmicort Respule Neb INHALATION 0.5 mg Q12HRT IRIS Administration Dextrose 12.5 gm 12/01/19 23:12 Dextrose 50% Syringe IV PUSH PRN PRN Hypoglycemia Protocol Dornase Yfn 2.5 mg 12/08/19 20:00 12/13/19 09:56 Pulmozyme INHALATION 2.5 mg Q12HRT IRIS Administration Enoxaparin Sodium 30 mg 12/07/19 09:00 12/12/19 08:16 Lovenox SUB-Q 30 mg DAILY IRIS Administration Glimepiride 2 mg 12/02/19 08:00 12/03/19 09:32 Amaryl PO Not Given DAILY@0800 IRIS Glucagon 1 mg 12/01/19 23:12 Glucagon For Inj IM PRN PRN Hypoglycemia Protocol Glucose 15 gm 12/01/19 23:12 Glutose 15 PO PRN PRN Hypoglycemia Protocol Guaifenesin 600 mg 12/02/19 21:00 12/03/19 09:33 Mucinex 12 Hr Tab PO 600 mg Q12HR IRIS Administration Dextrose 1,000 mls @ 100 mls/hr 12/01/19 23:12 Dextrose 5% 1,000 Ml IVPB PRN PRN
[2019-12-13] MEDS: PANTOPRAZOLE SODIUM IV 40 MG VIAL IV PUSH ×2 (10:33→21:25)
[2019-12-13] MEDS: INSULIN ASPART (*BKC) 100 UNITS/ML SUB-Q ×3 (10:33→17:33)
[2019-12-13] MEDS: ENOXAPARIN 30 MG/0.3 ML SYRINGE SUB-Q (10:33)
[2019-12-13 10:37] LABS: Glucose Point of Care 324 (65-105)
[2019-12-13] MEDS: FAT EMULSIONS IV 20% 250 ML 20.8 ML IVPB (10:54)
--- NOTE | 2019-12-13 11:57 | PC.NURSE ---
Transfered Patient to ICU bed 9 to receive medications that are not able to be administered in IMU. Gave report to Paulo ICU nurse.
[2019-12-13 12:24] LABS: Glucose Point of Care 332 (65-105)
--- NOTE | 2019-12-13 12:28 | WPDCNINT ---
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 Status: Acute Assessment and Plan: ileal colonic dilatation, pseudo-obstruction, Pequea's syndrome - GI and surgery following - GI recommended neostigmine, and ptw as transferred to ICU for that, If this does not work, pt may have to be transferred as recommended by surgery (2) Acute respiratory failure: Code(s): J96.00 - Acute respiratory failure, unspecified whether with hypoxia or hypercapnia Status: Acute Assessment and Plan: patient with some respiratory distress likely related to abdominal distension - pulmonary following the patient, once colonic decompression occurs (3) Protein-calorie malnutrition, moderate: Code(s): E44.0 - Moderate protein-calorie malnutrition Status: Acute Assessment and Plan: patient on TPN and tolerating, (4) Acute on chronic renal failure: Qualifiers: Acute renal failure type: unspecified Chronic kidney disease stage: stage 3 (moderate) Qualified Code(s): N17.9 - Acute kidney failure, unspecified; N18.3 - Chronic kidney disease, stage 3 (moderate) Code(s): N17.9 - Acute kidney failure, unspecified; N18.9 - Chronic kidney disease, unspecified Status: Acute Assessment and Plan: creatinine stable and improving - continue to monitor urine output, (5) DM type 2 (diabetes mellitus, type 2): Code(s): E11.9 - Type 2 diabetes mellitus without complications Status: Chronic Assessment and Plan: patient is hyperglycemic likely related to TPN - will increase Lantus and continue sliding scale insulin Accu-Cheks (6) COPD (chronic obstructive pulmonary disease): Qualifiers: COPD type: unspecified COPD Qualified Code(s): J44.9 - Chronic obstructive pulmonary disease, unspecified Code(s): J44.9 - Chronic obstructive pulmonary disease, unspecified Status: Chronic Assessment and Plan: continue bronchodilators and Pulmozyme (7) Diarrhea: Qualifiers: Diarrhea type: unspecified type Qualified Code(s): R19.7 - Diarrhea, unspecified Code(s): R19.7 - Diarrhea, unspecified Status: Acute Assessment and Plan: diarrhea has slowed down, - patient has an FMS - continue p.o. vancomycin (8) Hypothyroidism (acquired): Code(s): E03.9 - Hypothyroidism, unspecified Status: Acute Assessment and Plan: continue IV levothyroxine (9) DVT prophylaxis: Code(s): Z29.9 - Encounter for prophylactic measures, unspecified Status: Acute Assessment and Plan: SCDs on Lovenox Additional Plan will discuss with family when available Code status: Full code. Critical care time spent: 44 minutes Due to a high probability of clinically significant, life threatening deterioration, the patient required my highest level of preparedness to intervene emergently and I personally spent this critical care time directly and personally managing the patient. This critical care time included obtaining a history; examining the patient; pulse oximetry; ordering and review of studies; arranging urgent treatment with development of a management plan; evaluation of patient's response to treatment; frequent reassessment; and discussions with other providers. It was exclusive of separately billable procedures and treating other patients and teaching time. Please see Assessment and Plan section and the rest of the note for further information on patient assessment and treatment [employer] Consult Note Consult date: 12/13/19 Time Seen: 12:18 Reason for consult: Marielle syndrome, respiratory failure, diarrhea, acute on chronic kidney injury HPI: Cristina Bravo is a 79 year old female with significant past medical history of rheumatoid arthritis, hypothyroidism, hyperlipidemia, essential hypertension, chronic
--- NOTE | 2019-12-13 13:42 | PM.IMPN ---
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 Lucas. 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 The pt does have a hx of colonic ileus in 2017 treated with decompressive colonoscopy. Rectal tube was placed over the weekend. SBS yesterday showing mild SB dilation but severe ileus. She has good output noted in the fecal bag as well as gas after the Neostigmine. Discussed with Dr. Nicolas today. He recommended stopping the Reglan and starting Erythromycin as well. Continue to monitor in ICU. (2) Asthma: Code(s): J45.909 - Unspecified asthma, uncomplicated Status: Chronic Assessment and Plan: Coarse BS. Possible fluid related still. Schedule Xopenex. Continue bedesonide. Check ABG given her somnolence. Continue IS and chest physiotherapy. ABG showing 7./74/76. THis was called to the netezza developer and BiPAP started. (3) Acute respiratory failure: Code(s): J96.00 - Acute respiratory failure, unspecified whether with hypoxia or hypercapnia Status: Acute Assessment and Plan: RN called after pt developed dyspnea following small bowel follow-through on 12/12/2019. CXR showing congestive changes and 1 dose of IV lasix 40mg was given. Good urine output. Patient still sounds congested. Will check ABG and schedule Xopenex (4) Diarrhea: Qualifiers: Diarrhea type: unspecified type Qualified Code(s): R19.7 - Diarrhea, unspecified Code(s): R19.7 - Diarrhea, unspecified Status: Acute Assessment and Plan: The pt had diarrhea initially after a two week course of levaquin. She is on empiric vancomycin for possible CDiff. She is NPO and is on parenteral nutrition. No stool testing has been performed. Will continue empiric vancomycin at this time. (5) Acute on chronic renal failure: Qualifiers: Acute renal failure type: unspecified Chronic kidney disease stage: stage 3 (moderate) Qualified Code(s): N17.9 - Acute kidney failure, unspecified; N18.3 - Chronic kidney disease, stage 3 (moderate) Code(s): N17.9 - Acute kidney failure, unspecified; N18.9 - Chronic kidney disease, unspecified Status: Acute Assessment and Plan: Baseline creatinine 1.4. Cr increased 2.6 before trending back down to 1.4-1.5 range. Good urine output yesterday. Continue to monitor. (6) Benign essential hypertension: Code(s): I10 - Essential (primary) hypertension Status: Chronic Assessment and Plan: Blood pressure reviewed On 12/13/2019. Blood pressure reasonably well controlled. Continue Lopressor. (7) DM type 2 (diabetes mellitus, type 2): Code(s): E11.9 - Type 2 diabetes mellitus without complications Status: Chronic Assessment and Plan: A1c 5.8 in Oct 2019. Blood sugars reviewed on 12/13/19 and are elevated in the 300's. Probably related to the TPN. Increase Lantus. Continue Accu-Cheks with sliding scale coverage. Continue hypoglycemia protocol. Glucose should improve off TPN. (8) Abnormal CT scan, kidney: Code(s): R93.429 - Abnormal radiologic findings on diagnostic imaging of unspecified kidney Status: Acute Assessment and Plan: CT scan performed on 12/03/19 reveals incidental finding of irregularity to both kidney margins which cannot exclude an underlying solid mass. Additionally, reveals 2 cm exophytic right renal cyst. This was also visualized on CT chest wo contast on 12/08/19 and not compatible with a simple renal cyst. A renal US was performed on 11/24/[address] Zarate for abnormal lab results and revealed small right renal cysts. Defer further testing if indicated to PCP. (9) Hypothyroidism (acquired): Code(s): E03.9 - Hypothyroidism, unspecified Status: Acute
[2019-12-13 15:24] LABS: Base Excess ABG -1.5 mEq/l (+/-2.0); Fractional Inspired Oxygen 32 %; Oxygen Content ABG 14.9 %vol (16.0-22.0); Oxygen Saturation ABG 91.2 % (95.0-100.0); Oxyhemoglobin 93.2 % THb (90.0-100.0); PO2 ABG 75.8 mmHg (80.0-100.0); PO2 FiO2 Ratio Arterial Blood 2.37 %; Total Hemoglobin 11.3 g/dL (12.0-18.0)
[2019-12-13 15:25] LABS: Device NASAL CANNULA; Modified Allen's Test Pass; PCO2 ABG 74.7 mmHg (35.0-45.0); Site Drawn RIGHT RADIAL; pH ABG 7.192 (7.350-7.450)
--- NOTE | 2019-12-13 15:43 | PM.PNPUL ---
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 - consider checking TSH as cause - keep electrolytes within normal limits - she was moved to ICU today for Neostigmine administration - she is at high risk for Aspiration and respiratory failure given her change in mental status today. Subjective Date/time seen: 12/13/19 15:43 Interval history: Moved to ICU for Neostigmine administration. She is much more lethargic today. ABD still distended and hypertypanic and hyperdyanmic bowel sounds. Review of Systems Review of Systems: All systems reviewed & are unremarkable except as noted in HPI and below Exam Const: General: uncomfortable HENMT: Mouth: Yes moist mucous membranes Neck: Neck: supple and no JVD Resp: Auscultation: wheezes Cardio: Rate: regular rate Rhythm: regular rhythm Heart sounds: no murmurs GI: Inspection: distended Auscultation: abnormal bowel sounds Neuro: Cognition (Neuro): abnormal cognition Other: lethargic, GCS 8-9 Extrem: General: normal to inspection Psych: Affect: normal affect Objective Data Vital Signs Vital Signs: Vital Signs - 24 hr 12/12/19 16:00 12/12/19 17:57 12/12/19 19:05 Temperature 36.6 C Pulse Rate 107 H 109 H 109 H Respiratory Rate 28 H Blood Pressure 115/94 H Pulse Oximetry 99 12/12/19 19:34 12/12/19 20:00 12/12/19 21:22 Temperature 36.6 C Pulse Rate 102 H 92 99 Respiratory Rate 14 18 Blood Pressure 135/58 L Pulse Oximetry 97 12/12/19 21:24 12/12/19 21:25 12/12/19 21:32 Temperature Pulse Rate 99 Respiratory Rate 18 Blood Pressure Pulse Oximetry 96 96 12/12/19 22:00 12/12/19 23:39 12/12/19 23:54 Temperature 36.7 C Pulse Rate 100 103 H 98 Respiratory Rate 20 Blood Pressure 143/69 H Pulse Oximetry 96 12/13/19 00:00 12/13/19 02:00 12/13/19 04:00 Temperature 36.6 C Pulse Rate 83 100 101 H Respiratory Rate 22 H Blood Pressure 153/65 H Pulse Oximetry 96 12/13/19 06:00 12/13/19 06:01 12/13/19 06:03 Temperature Pulse Rate 100 102 H Respiratory Rate Blood Pressure 148/57 H Pulse Oximetry 12/13/19 08:00 12/13/19 09:57 12/13/19 10:00 Temperature 36.5 C Pulse Rate 92 96 95 Respiratory Rate 20 20 Blood Pressure 149/59 H Pulse Oximetry 95 12/13/19 10:21 12/13/19 12:00 12/13/19 14:00 Temperature 36.4 C L Pulse Rate 100 68 71 Respiratory Rate 20 30 H Blood Pressure 157/67 H Pulse Oximetry 94 12/13/19 15:38 Temperature Pulse Rate 79 Respiratory Rate 23 H Blood Pressure Pulse Oximetry 100 Intake/Output Intake/Output: Intake & Output 12/10/19 12/11/19 12/12/19 12/13/19 23:59 23:59 23:59 23:59 Intake Total 9846 9460 1827 1157 Output Total 3658 2270 2400 1175 [phone] Meds/Results Medications: Active Medications Generic Name Dose Route Start Last Admin Trade Name Freq PRN Reason Stop Dose Admin Budesonide 0.5 mg 12/12/19 20:00 12/13/19 09:54 Pulmicort Respule Neb INHALATION 0.5 mg Q12HRT IRIS Administration Dextrose 12.5 gm 12/01/19 23:12 Dextrose 50% Syringe IV PUSH PRN PRN Hypoglycemia Protocol Dornase Yfn 2.5 mg 12/08/19 20:00 12/13/19 09:56 Pulmozyme INHALATION 2.5 mg Q12HRT IRIS Administration Enoxaparin Sodium 30 mg 12/07/19 09:00 12/13/19 10:33 Lovenox SUB-Q 30 mg DAILY IRIS Administration Glucagon 1 mg 12/01/19 23:12 Glucagon For Inj IM PRN PRN Hypoglycemia Protocol Glucose 15 gm 03
--- NOTE | 2019-12-13 15:58 | PCDIET ---
Nutrition Follow-Up Complete: Inadequate Oral Intake as related to Diarrhea as evidenced by poor po intake reported and weight loss of 6 lbs in 1 week. Adequate intake of at least 75% of meals/supplements Goal: Unable to meet goal at this time. Recommend total intake meet nutrition needs. Pt current nutrition is Clinimix 02/09 at 40ml/hr. Nutrition recommendation: Recommend increasing rate to 70ml/ hr to better meet needs Last recorded weight is 118.7 kg wt up from assessment wt of 104kg on 12/01 Bowel Motility:Brown liquid in fecal containment, distended with hypoactive bowel sounds per chart Labs Reviewed:12/12 Alb 2.8, GFR 33, Na 136, Glucose 328, PO4 4.6 Meds Noted:MD notes to stop Reglan and add erythromycin Additional Notes: Pt with potential colonic ileus per MD notes. TPN appropriate route of feeding at this time. Current rate of 40ml/hr providing 1182 kcals, 48g protein, and 1210ml of fluids. To better meet pt needs of 1613kcals and 83g protein, recommend increasing rate to 70ml/hr to provide 1693kcals, 84g protein, and 1930ml of fluid. We will continue to monitor wt and labs for TPN tolerance & appropriateness every T/F.
[2019-12-13 16:37] LABS: Glucose Point of Care 284 (65-105)
[2019-12-13 21:22] LABS: Triiodothyronine T3 Free 0.9 pg/mL (2.3-4.2)
[2019-12-13] MEDS: INSULIN GLARGINE (*BKC) 100 UNITS/ML 32 UNITS SUB-Q (21:25)
[2019-12-13 21:36] LABS: Glucose Point of Care 324 (65-105)
[2019-12-14] VITALS (28 sets, daily range): BP systolic 111–162; BP diastolic 49–72; PULSE 23–99; RESP 18–72; TEMP 36.4–36.9; O2SAT 96–100
[2019-12-14 04:12] LABS: Alveolar/Arterial O2 Gradient 166.5 mmHg; Base Excess ABG 4.3 mEq/l (+/-2.0); Carboxyhemoglobin 0.3 % THb (0-2.0); Fractional Inspired Oxygen 50 %; HCO3 ABG 32.3 mEq/l (22.0-26.0); Methemoglobin ABG 0.5 %THb (0-1.5); Oxygen Saturation ABG 97.4 % (95.0-100.0); Oxyhemoglobin 96.3 % THb (90.0-100.0); PO2 ABG 111.9 mmHg (80.0-100.0); PO2 FiO2 Ratio Arterial Blood 2.24 %; Reduced Hemoglobin 2.9 %THb (0-5.0); Total Hemoglobin 10.2 g/dL (12.0-18.0)
[2019-12-14 04:14] LABS: PCO2 ABG 69.4 mmHg (35.0-45.0); pH ABG 7.286 (7.350-7.450)
[2019-12-14 04:15] LABS: Device NON-INVASIVE VENT; Modified Allen's Test Pass; Site Drawn RIGHT RADIAL
[2019-12-14 04:16] LABS: Non-Invasive Expiratory Pressure 6 CMH2O; Non-Invasive Inspiratory Pressure 15 CMH2O; Non-Invasive Vent Rate 14 /MIN
[2019-12-14 04:51] LABS: Lactic Acid 0.9 mmol/L (0.7-2.1); Magnesium 1.9 mg/dL (1.6-2.3); Triglycerides 364 mg/dL (<150)
[2019-12-14] MEDS: METOPROLOL TARTRATE INJ 5 MG/5 ML VIAL IV PUSH ×3 (05:07→18:55)
[2019-12-14] MEDS: LEVOTHYROXINE SODIUM INJ 100 MCG/5 ML VIAL 56 MCG IV PUSH (06:32)
[2019-12-14 08:09] LABS: Glucose Point of Care 331 (65-105)
[2019-12-14 08:12] LABS: Basophils Percent Auto 0.2 % (0.2-1.2); Eosinophils Absolute Auto 0.1 K/mm3 (0-0.3); Eosinophils Percent Auto 0.9 % (0-4.4); Hematocrit 29.6 % (37.0-47.0); Immature Granulocyte Absolute 0.53 K/mm3 (0.00-0.031); Immature Granulocyte Percent A 4.2 % (0-0.5); Lymphocytes Absolute Auto 0.57 K/mm3 (0.9-3.2); Lymphocytes Percent Auto 4.6 % (18.3-44.2); Mean Corpuscular HGB Conc 30.4 g/dl (32-36); Mean Corpuscular Hemoglobin 30.6 pg (26-34); Mean Corpuscular Volume 100.7 fl (80-100); Mean Platelet Volume 10.5 fl (7.4-10.4); Monocytes Absolute Auto 0.7 K/mm3 (0.1-0.6); Monocytes Percent Auto 5.8 % (2.6-8.5); Neutrophils Absolute Auto 10.5 K/mm3 (1.3-6.7); Neutrophils Percent Auto 84.3 % (45.5-73.1); Platelet Count Result 182 k/mm3 (150-375); Red Blood Count 2.94 M/mm3 (4.2-5.4); Red Cell Distribution Width 14.3 % (11.5-14.5); White Blood Count 12.5 K/mm3 (4.5-10.0)
[2019-12-14 08:18] LABS: Alveolar/Arterial O2 Gradient 147.5 mmHg; Base Excess ABG 4.1 mEq/l (+/-2.0); Fractional Inspired Oxygen 50 %; Oxygen Content ABG 14.4 %vol (16.0-22.0); Oxygen Saturation ABG 98.3 % (95.0-100.0); Oxyhemoglobin 96.8 % THb (90.0-100.0); PO2 ABG 133.2 mmHg (80.0-100.0); PO2 FiO2 Ratio Arterial Blood 2.66 %; Total Hemoglobin 10.4 g/dL (12.0-18.0); pH ABG 7.294 (7.350-7.450)
[2019-12-14 08:21] LABS: Platelet Estimate Adequate (Adequate)
[2019-12-14 08:21] LABS: Device NON-INVASIVE VENT; Modified Allen's Test Pass; Non-Invasive Expiratory Pressure 8 CMH2O; Non-Invasive Inspiratory Pressure 20 CMH2O; Non-Invasive Vent Rate 20 /MIN; PCO2 ABG 67.4 mmHg (35.0-45.0); Site Drawn RIGHT RADIAL
[2019-12-14 08:23] LABS: Acanthocytes 1+ (NORMAL); Ovalocytes 1+ (NORMAL); Poikilocytosis 2+ (NORMAL); Stomatocytes 1+ (NORMAL)
[2019-12-14 08:24] LABS: Alanine Aminotransferase 9 U/L (4-35); Albumin Level 2.2 g/dL (3.5-5.1); Alkaline Phosphatase 38 U/L (38-126); Aspartate Amino Transferase 9 U/L (14-36); Bilirubin,Total 0.2 mg/dL (0.2-1.3); Blood Urea Nitrogen 62 mg/dL (7-17); Calcium 7.7 mg/dL (8.4-10.2); Carbon Dioxide 31 mmol/L (22-30); Chloride 104 mmol/L (98-107); Estimated CRCL calculation 32 ml/min; Estimated Glomerular Filt Rate 31; Glucose 326 mg/dL (65-105); Potassium 3.9 mmol/L (3.4-5.0); Sodium 139 mmol/L (137-145)
--- NOTE | 2019-12-14 08:59 | PM.IMPN ---
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 Lucas. 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 The pt does have a hx of colonic ileus in 2016 treated with decompressive colonoscopy. Rectal tube was placed over the weekend. SBS 12/11 showing mild SB dilation but severe ileus. She has good output noted in the fecal bag (although not accurate in the I/Os) after the Neostigmine. Reglan stopped and Erythromycin started yesterday. Continue to monitor in ICU. (2) Acute respiratory failure: Code(s): J96.00 - Acute respiratory failure, unspecified whether with hypoxia or hypercapnia Status: Acute Assessment and Plan: RN called after pt developed dyspnea following small bowel follow-through on 12/12/2019. CXR showing congestive changes and 1 dose of IV lasix 40mg was given. Good urine output. On 12/12, patient was somnolent and ABG showing 7.19/75/76 so BiPAP started. ABG showing some improvement and mental status better. CXR showing congestive changes. Continue Xopenex, Pulmozyme and Pulmicort. Consider repeating Lasix but renal function worsening. (3) Diarrhea: Qualifiers: Diarrhea type: unspecified type Qualified Code(s): R19.7 - Diarrhea, unspecified Code(s): R19.7 - Diarrhea, unspecified Status: Acute Assessment and Plan: The pt had diarrhea initially after a two week course of levaquin. She is on empiric vancomycin for possible CDiff. She is NPO and is on parenteral nutrition. No stool testing has been performed. Will continue empiric vancomycin at this time. (4) Acute on chronic renal failure: Qualifiers: Acute renal failure type: unspecified Chronic kidney disease stage: stage 3 (moderate) Qualified Code(s): N17.9 - Acute kidney failure, unspecified; N18.3 - Chronic kidney disease, stage 3 (moderate) Code(s): N17.9 - Acute kidney failure, unspecified; N18.9 - Chronic kidney disease, unspecified Status: Acute Assessment and Plan: Baseline creatinine 1.4. Cr increased 2.6 before trending back down. Currently Cr 1.6. Continues to have good urine output. Continue to monitor. (5) Benign essential hypertension: Code(s): I10 - Essential (primary) hypertension Status: Chronic Assessment and Plan: Blood pressure reviewed On 12/14/2019. Blood pressure reasonably well controlled. Continue Lopressor. (6) DM type 2 (diabetes mellitus, type 2): Code(s): E11.9 - Type 2 diabetes mellitus without complications Status: Chronic Assessment and Plan: A1c 5.8 in Oct 2019. Blood sugars reviewed on 12/14/19 and are still elevated in the 300's. Probably related to the TPN. Increase Lantus again. Continue Accu-Cheks with sliding scale coverage. Continue hypoglycemia protocol. Glucose should improve off TPN. (7) Asthma: Code(s): J45.909 - Unspecified asthma, uncomplicated Status: Chronic Assessment and Plan: As above. (8) Abnormal CT scan, kidney: Code(s): R93.429 - Abnormal radiologic findings on diagnostic imaging of unspecified kidney Status: Acute Assessment and Plan: CT scan performed on 12/03/19 reveals incidental finding of irregularity to both kidney margins which cannot exclude an underlying solid mass. CT chest wo contast on 12/08/19 showing 2.3cm right renal mass not compatible with a simple renal cyst. A renal US was performed on 11/24/[address] Zarate for abnormal lab results and revealed small right renal cysts. Defer further testing if indicated to PCP. (9) Hypothyroidism (acquired): Code(s): E03.9 - Hypothyroidism, unspecified Status: Acute Assessment and Plan: Stable. Continue IV levothyroxine. (10) Pulmonary nodule:
[2019-12-14] MEDS: DORNASE ALFA INH SOLN 1 MG/ML 2.5 ML AMP 2.5 MG INHALATION ×2 (09:10→19:45)
[2019-12-14] MEDS: BUDESONIDE RESPULE NEB 0.5 MG/2 ML AMP INHALATION ×2 (09:10→19:45)
[2019-12-14] MEDS: INSULIN ASPART (*BKC) 100 UNITS/ML SUB-Q ×3 (09:18→17:44)
[2019-12-14] MEDS: INSULIN DETEMIR 100 UNITS/ML 25 UNITS SUB-Q ×2 (09:19→21:24)
[2019-12-14] MEDS: PANTOPRAZOLE SODIUM IV 40 MG VIAL IV PUSH ×2 (09:22→21:24)
[2019-12-14] MEDS: ENOXAPARIN 30 MG/0.3 ML SYRINGE SUB-Q (09:22)
[2019-12-14] MEDS: FAT EMULSIONS IV 20% 250 ML 20.8 ML IVPB (09:56)
--- NOTE | 2019-12-14 11:24 | PCDIET ---
ICU Rounding Note: Patient NPO except ice chips. Continues on Clinimix 5/15 with electrolytes at 40mL/hr with 250mL 20% lipids daily. Agree with previous recommendation to increase Clinimix rate to 70mL/hr with 250mL 20% lipids for 1693kcal, 84g protein and 1930mL fluid. Last recorded weight is 109.7kg which is decreased. Slightly -I/O past two days but recommend reweighing patient to ensure accurate. Bowel Motility: FMS with output, per RN. Labs Reviewed: Glu (326), BUN (62), Cr (1.6), Eileen Ca (9.14), TG (364) Meds Noted: Erythromycin, Novolog, Levemir, Atrovent, Protonix, Vancomycin Additional Notes: Abdomen with incision. No documented pressure sores. Monitoring TG level. May recommend adjusting TPN if level exceeds 400mg/dL. Following daily in ICU rounds. Assessing/reassessing every Thursday/Thursday.
[2019-12-14 12:27] LABS: Glucose Point of Care 343 (65-105)
[2019-12-14] MEDS: INSULIN HUMAN REGULAR (*BKC) 100 UNITS/ML IV PUSH (12:48)
--- NOTE | 2019-12-14 12:50 | WPDGIPROGNO ---
Subjective Date/time seen: 12/14/19 12:50 The patient is feeling better. No complaints of abdominal pain. Positive response to neostigmine. HRRR Lungs improved aeration. Abdomen soft. BS faint, but present. Persistent ileus/pseudo-obstruction. Presently on treatment C diff. Leukocytosis. May be secondary to above. Increasing shortness of breath. This may be secondary underlying atelectasis/COPD. Malnutrition. Recent pneumonia. History of adenomatous colon polyps. Last colonoscopy was September of 2018. Diabetes mellitus. Hypertension. Hyperlipidemia. Chronic kidney disease. COPD. Hypothyroidism. Rheumatoid arthritis. DVT by history. Obesity. Rec: Another trial of neostigmine. Recheck lab. Miralax per NGT and clamp for 1 hour. Objective Data Vital Signs Vital Signs: Vital Signs - 24 hr 12/13/19 14:00 12/13/19 15:38 12/13/19 16:00 Temperature 36.7 C Pulse Rate 71 79 82 Respiratory Rate 23 H 21 H Blood Pressure 134/51 L Pulse Oximetry 100 100 12/13/19 18:00 12/13/19 20:00 12/13/19 22:00 Temperature 36.7 C Pulse Rate 77 82 80 Respiratory Rate 22 H 21 H Blood Pressure 132/52 L 114/42 L Pulse Oximetry 100 100 12/13/19 22:22 12/13/19 22:35 12/14/19 00:00 Temperature 36.4 C Pulse Rate 91 81 78 Respiratory Rate 23 H 23 H 22 H Blood Pressure 122/56 L Pulse Oximetry 100 100 12/14/19 02:00 12/14/19 03:07 12/14/19 03:15 Temperature Pulse Rate 81 80 81 Respiratory Rate 22 H 26 H 23 H Blood Pressure 121/61 Pulse Oximetry 100 100 12/14/19 04:00 12/14/19 05:06 12/14/19 05:07 Temperature 36.9 C Pulse Rate 86 86 87 Respiratory Rate 24 H 20 Blood Pressure 111/51 L Pulse Oximetry 100 100 12/14/19 06:00 12/14/19 08:00 12/14/19 08:23 Temperature 36.5 C Pulse Rate 74 88 76 Respiratory Rate 22 H 18 20 Blood Pressure 116/49 L 132/66 Pulse Oximetry 100 100 100 12/14/19 09:11 12/14/19 09:20 Temperature Pulse Rate 96 99 Respiratory Rate 20 24 H Blood Pressure Pulse Oximetry Intake/Output Intake/Output: Intake & Output 12/11/19 12/12/19 12/13/19 12/14/19 23:59 23:59 23:59 23:59 Intake Total 3689 1827 1507 1114 Output Total 2270 2400 2024 800 Balance [phone] -573 [phone] Meds/Results Medications: Active Medications Generic Name Dose Route Start Last Admin Trade Name Freq PRN Reason Stop Dose Admin Budesonide 0.5 mg 12/12/19 20:00 12/14/19 09:10 Pulmicort Respule Neb INHALATION 0.5 mg Q12HRT IRIS Administration Dextrose 12.5 gm 12/01/19 23:12 Dextrose 50% Syringe IV PUSH PRN PRN Hypoglycemia Protocol Dornase Yfn 2.5 mg 12/08/19 20:00 12/14/19 09:10 Pulmozyme INHALATION 2.5 mg Q12HRT IRIS Administration Enoxaparin Sodium 30 mg 12/07/19 09:00 12/14/19 09:22 Lovenox SUB-Q 30 mg DAILY IRIS Administration Glucagon 1 mg 12/01/19 23:12 Glucagon For Inj IM PRN PRN Hypoglycemia Protocol Glucose 15 gm 12/01/19 23:12 Glutose 15 PO PRN PRN Hypoglycemia Protocol Dextrose 1,000 mls @ 100 mls/hr 12/01/19 23:12 Dextrose 5% 1,000 Ml IVPB PRN PRN Hypoglycemia Protocol Dextrose 1,000 mls @ 50 mls/hr 12/07/19 07:13 Dextrose 10% IV CONT .Q20H PRN if PN is interrupted Multivitamins 5 ml/ Amino 2,005 mls @ 40 mls/hr 12/07/19 09:00 12/14/19 09:55 Acids/Electrolytes/Dextrose IV CONT 40 mls/hr .Q24H IRIS Administration Protocol Fat Emulsion Intravenous 250 mls @ 20.833 mls/hr 12/07/19 10:00 12/14/19 09:56 Lipids 20% IVPB 20.8 mls/hr Q24H IRIS Administration Erythromycin Lactobionate 500 100 mls @ 100 mls/hr 12/13/19 18:00 12/14/19 06:34 mg/ Sodium Chloride IVPB Infused Q6HR IRIS Infusion Insulin Aspart 3 - 6 units 12/09/19 08:00 12/14/19 09:18 Novolog SUB-Q 5 units TIDWM [facility] Administration Protocol Insulin Detemir 25 units 12/14/19 09:00 12/14/19
[2019-12-14] MEDS: NEOSTIGMINE 1:1000 10 MG/10 ML VIAL 2 MG IV PUSH (13:29)
--- NOTE | 2019-12-14 13:35 | WPDINTPN ---
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 discussed with GI, will repeat neostigmine again today. GI also added MiraLax b.i.d. - GI also agreed with trickle feeds (2) Acute respiratory failure: Code(s): J96.00 - Acute respiratory failure, unspecified whether with hypoxia or hypercapnia Status: Acute Assessment and Plan: patient with some respiratory distress likely related to abdominal distension - ABGs revealed hypercapnic respiratory failure, patient on BiPAP, will continue. - pulmonary following the patient, once colonic decompression occurs (3) Protein-calorie malnutrition, moderate: Code(s): E44.0 - Moderate protein-calorie malnutrition Status: Acute Assessment and Plan: patient on TPN and tolerating, - will start trickle feeds (4) Acute on chronic renal failure: Qualifiers: Acute renal failure type: unspecified Chronic kidney disease stage: stage 3 (moderate) Qualified Code(s): N17.9 - Acute kidney failure, unspecified; N18.3 - Chronic kidney disease, stage 3 (moderate) Code(s): N17.9 - Acute kidney failure, unspecified; N18.9 - Chronic kidney disease, unspecified Status: Acute Assessment and Plan: creatinine stable and improving - continue to monitor urine output, (5) DM type 2 (diabetes mellitus, type 2): Code(s): E11.9 - Type 2 diabetes mellitus without complications Status: Chronic Assessment and Plan: patient is hyperglycemic likely related to TPN - will switch Lantus to Levemir q.12 hours and continue sliding scale insulin Accu-Cheks (6) COPD (chronic obstructive pulmonary disease): Qualifiers: COPD type: unspecified COPD Qualified Code(s): J44.9 - Chronic obstructive pulmonary disease, unspecified Code(s): J44.9 - Chronic obstructive pulmonary disease, unspecified Status: Chronic Assessment and Plan: continue bronchodilators and Pulmozyme (7) Diarrhea: Qualifiers: Diarrhea type: unspecified type Qualified Code(s): R19.7 - Diarrhea, unspecified Code(s): R19.7 - Diarrhea, unspecified Status: Acute Assessment and Plan: continue to monitor bowel movement - patient has an FMS - continue p.o. vancomycin (8) Hypothyroidism (acquired): Code(s): E03.9 - Hypothyroidism, unspecified Status: Acute Assessment and Plan: continue IV levothyroxine (9) DVT prophylaxis: Code(s): Z29.9 - Encounter for prophylactic measures, unspecified Status: Acute Assessment and Plan: SCDs and Lovenox Additional Plan discussed with patient and updated her with her condition and plan of care. I answered all questions discussed with surgery and GI Code status: Full code. Critical care time spent: 32 minutes Due to a high probability of clinically significant, life threatening deterioration, the patient required my highest level of preparedness to intervene emergently and I personally spent this critical care time directly and personally managing the patient. This critical care time included obtaining a history; examining the patient; pulse oximetry; ordering and review of studies; arranging urgent treatment with development of a management plan; evaluation of patient's response to treatment; frequent reassessment; and discussions with other providers. It was exclusive of separately billable procedures and treating other patients and teaching time. Please see Assessment and Plan section and the rest of the note for further information on patient assessment and treatment Subjective Date/time seen: 12/14/19 13:35 Reason for consult: Marielle mcfarlane
[2019-12-14] MEDS: IPRATROPIUM BR 0.02% INH SOLN 0.5 MG/2.5 ML VIAL INHALATION (14:40)
--- NOTE | 2019-12-14 14:41 | PM.PNGS ---
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 Continue PT/OT as tolerated with current respiratory status. Gastrografin upper GI on 12/12/19 showed transit of 2 hours with dilated small bowel and severely dilated colon consistent with colonic ileus. Plan per GI who treated with Neostigmine x 1 yesterday with positive results. Planning to attempt a second trial today. Scheduled Miralax added. <ROLANDO Jennings - Last Filed: 12/14/19 17:08> (2) Protein-calorie malnutrition, moderate: Code(s): E44.0 - Moderate protein-calorie malnutrition <ROLANDO Jennings - Last Filed: 12/14/19 17:08> Status: Acute <ROLANDO Jennings - Last Filed: 12/14/19 17:08> Assessment and Plan: Trying to start trickle tube feedings today. Will continue TPN for now until tolerating a substantial diet. Dietitian following. <ROLANDO Jennings - Last Filed: 12/14/19 17:08> Additional Plan Agree with continued IV antibiotics and care by GI. Discussed plan of care with Dr. Lucas. <ROLANDO Jennings - Last Filed: 12/14/19 17:08> Subjective Subjective Date/Time Seen: 12/14/19 13:55 <ROLANDO Jennings - Last Filed: 12/14/19 17:08> Post Op day: 8 (s/p ex. lap.) <ROLANDO Jennings - Last Filed: 12/14/19 17:08> Patient reports: no new complaints and bowel movement <ROLANDO Jennings - Last Filed: 12/14/19 17:08> Interval history: Patient seen and examined in the ICU currently on BiPAP. She appears tired and weak. Patient denies any abdominal pain, nausea, or vomiting. She has an NG tube still in place and rectal tube in place. No complaints at this time. <Lyly RonquilloElvin SueROLANDO street - Last Filed: 12/14/19 17:08> Review of Systems Review of Systems: All systems reviewed & are unremarkable except as noted in HPI and below <Lyly B. SueROLANDO street - Last Filed: 12/14/19 17:08> Exam Const: General: no acute distress and tired appearing <Lyly RonquilloElvin SueROLANDO street - Last Filed: 12/14/19 17:08> Nutritional Appearance: obese <Lyly Hannah SueROLANDO street - Last Filed: 12/14/19 17:08> Orientation/consciousness: patient oriented x3 <Lyly RonquilloElvin SueROLANDO street - Last Filed: 12/14/19 17:08> GI: Inspection: distended and other (Abdominal incision clean/dry/intact, no signs of infection/drainage) <Lyly Young SueROLANDO street - Last Filed: 12/14/19 17:08> GI Palp: No abdominal tenderness, Yes Soft to palpation and No Guarding due to palpation present (GI) <Lyly B. SueROLANDO street - Last Filed: 12/14/19 17:08> Auscultation: High-pitched bowel sounds present <Lyly B. SueROLANDO street - Last Filed: 12/14/19 17:08> Other: Dark brown liquid stool in the stool containment system. <ROLANDO Jennings - Last Filed: 12/14/19 17:08> Neuro: General: moves all extremities and no focal motor deficits <ROLANDO Jennings - Last Filed: 12/14/19 17:08> Extrem: General: no edema <ROLANDO Jennings - Last Filed: 12/14/19 17:08> Psych: Affect: normal affect <ROLANDO Jennings - Last Filed: 12/14/19 17:08> Thought process: Normal thought process present <ROLANDO Jennings - Last Filed: 12/14/19 17:08> Insight: Good insight present (Psych) <ROLANDO Jennings - Last Filed: 12/14/19 17:08> Judgement: Good judgement present (Psych) <ROLANDO Jennings - Last Filed: 12/14/19 17:08> Objective Data Vital Signs Vital Signs: Vital Signs - 24 hr 12/13/19 15:38 12/13/19 16:00 12/13/19 18:00 Temperature 36.7 C Pulse Rate 79 82 77 Respiratory Rate 23 H 21 H Blood Pressure 134/51 L Pulse Oximetry 100 100 12/13/19 20:00 12/13/19 22:00 12/13/19 22:22 Temperature 36.7 C Pulse Rate 82 80 91 Respiratory Ra
--- NOTE | 2019-12-14 15:35 | PM.PNPUL ---
Progress Note: A&P Assessment and Plan (1) Asthma: Code(s): J45.909 - Unspecified asthma, uncomplicated Status: Chronic Assessment and Plan: - will add pulmicort 0.5 mg bid - continue atrovent and levalbuterol as ordered - will discontinue levaquin (2) [place]'s syndrome: Code(s): K59.8 - Other specified functional intestinal disorders Status: Acute Assessment and Plan: - once colonic decompression occurs, this will help her respiratory status. - consider checking TSH as cause - keep electrolytes within normal limits - she was moved to ICU today for Neostigmine administration - she is at high risk for Aspiration and respiratory failure given her change in mental status today. (3) Acute hypercapnic respiratory failure: Code(s): J96.02 - Acute respiratory failure with hypercapnia Status: Acute Assessment and Plan: - would try high flow 60 liters and 40% as BIPAP may be increase gastric air and worsen abdominal distention. - repeat ABG 2 hours after high flow - if CO2 starts to climb or she becomes more lethargic then BIPAP may have to be resumed. Time Spent With Patient Time with patient: 15 - 25 minutes Subjective Date/time seen: 12/14/19 15:35 Interval history: Lethargy was from hypercapnia, improved somewhat with BIPAP therapy. Not getting sedatives or narcotics. She is complaining that the mask is not comfortable. ABD continues to be distentend with typmpanic and hyperactive bowel sounds on Neostigmine. Review of Systems Review of Systems: All systems reviewed & are unremarkable except as noted in HPI and below Exam Const: General: uncomfortable HENMT: Mouth: Yes moist mucous membranes Neck: Neck: supple and no JVD Resp: Auscultation: wheezes Cardio: Rate: regular rate Rhythm: regular rhythm Heart sounds: no murmurs GI: Inspection: distended Auscultation: abnormal bowel sounds Neuro: Cognition (Neuro): abnormal cognition Other: lethargic, GCS 8-9 Extrem: General: normal to inspection Psych: Affect: normal affect Objective Data Vital Signs Vital Signs: Vital Signs - 24 hr 12/13/19 15:38 12/13/19 16:00 12/13/19 18:00 Temperature 36.7 C Pulse Rate 79 82 77 Respiratory Rate 23 H 21 H Blood Pressure 134/51 L Pulse Oximetry 100 100 12/13/19 20:00 12/13/19 22:00 12/13/19 22:22 Temperature 36.7 C Pulse Rate 82 80 91 Respiratory Rate 22 H 21 H 23 H Blood Pressure 132/52 L 114/42 L Pulse Oximetry 100 100 100 12/13/19 22:35 12/14/19 00:00 12/14/19 02:00 Temperature 36.4 C Pulse Rate 81 78 81 Respiratory Rate 23 H 22 H 22 H Blood Pressure 122/56 L 121/61 Pulse Oximetry 100 100 12/14/19 03:07 12/14/19 03:15 12/14/19 04:00 Temperature 36.9 C Pulse Rate 80 81 86 Respiratory Rate 26 H 23 H 24 H Blood Pressure 111/51 L Pulse Oximetry 100 100 12/14/19 05:06 12/14/19 05:07 12/14/19 06:00 Temperature Pulse Rate 86 87 74 Respiratory Rate 20 22 H Blood Pressure 116/49 L Pulse Oximetry 100 100 12/14/19 08:00 12/14/19 08:23 12/14/19 09:11 Temperature 36.5 C Pulse Rate 81 76 96 Respiratory Rate 18 20 20 Blood Pressure 132/66 Pulse Oximetry 100 100 12/14/19 09:20 12/14/19 10:00 12/14/19 12:00 Temperature 36.7 C Pulse Rate 99 78 77 Respiratory Rate 24 H 19 Blood Pressure 138/72 Pulse Oximetry 100 12/14/19 12:44 12/14/19 14:00 12/14/19 14:52 Temperature Pulse Rate 77 77 64 Respiratory Rate 22 H Blood Pressure Pulse Oximetry 12/14/19 14:53 Temperature Pulse Rate 64 Respiratory Rate 22 H Blood Pressure Pulse Oximetry 100 Intake/Output Intake/Output: Intake & Output 12/11/19 12/12/19 12/13/19 12/14/19 23:59 23:59 23:59 23:59 Intake Total 3689 1827 1507 1414 Output Total 2270 2400 2025 800 Balance 1419 -573 -518 614 Meds/Results Medications: Active Medications Generic Name Dose Route Start Last Admin Trade Name Freq PRN
[2019-12-14] MEDS: polyethylene glycoL 3350 17 GM POWD.PACK PO (17:23)
[2019-12-14 17:26] LABS: Alveolar/Arterial O2 Gradient 170.1 mmHg; Base Excess ABG 0.5 mEq/l (+/-2.0); Carboxyhemoglobin 0.3 % THb (0-2.0); Fractional Inspired Oxygen 45 %; HCO3 ABG 26.7 mEq/l (22.0-26.0); Methemoglobin ABG 0.8 %THb (0-1.5); Oxygen Content ABG 14.3 %vol (16.0-22.0); Oxygen Saturation ABG 96.6 % (95.0-100.0); PCO2 ABG 50.6 mmHg (35.0-45.0); PO2 ABG 93.2 mmHg (80.0-100.0); PO2 FiO2 Ratio Arterial Blood 2.07 %; Reduced Hemoglobin 3.9 %THb (0-5.0); Total Hemoglobin 10.6 g/dL (12.0-18.0); pH ABG 7.341 (7.350-7.450)
[2019-12-14 17:26] LABS: Glucose Point of Care 279 (65-105)
[2019-12-14 17:27] LABS: Device HIGH FLOW THERAPY; Modified Allen's Test Pass; Site Drawn RIGHT RADIAL
--- NOTE | 2019-12-14 17:30 | PCRCNOTE ---
PT PLACED BACK ON BIPAP DUE TO WORK OF BREATHING
[2019-12-14] MEDS: VANCOMYCIN ORAL 125 MG/2.5 ML SYRUP PO (18:57)
[2019-12-14 21:03] LABS: Glucose Point of Care 236 (65-105)
[2019-12-15] VITALS (26 sets, daily range): BP systolic 147–185; BP diastolic 61–83; PULSE 66–104; RESP 18–24; TEMP 36.2–36.9; O2SAT 94–100
[2019-12-15] MEDS: METOPROLOL TARTRATE INJ 5 MG/5 ML VIAL IV PUSH ×4 (00:05→17:49)
[2019-12-15 04:26] LABS: Base Excess ABG 4.8 mEq/l (+/-2.0); Carboxyhemoglobin 0.3 % THb (0-2.0); Fractional Inspired Oxygen 40 %; HCO3 ABG 30.1 mEq/l (22.0-26.0); Methemoglobin ABG 0.3 %THb (0-1.5); Oxygen Content ABG 14.1 %vol (16.0-22.0); Oxygen Saturation ABG 95.6 % (95.0-100.0); Oxyhemoglobin 94.1 % THb (90.0-100.0); PO2 FiO2 Ratio Arterial Blood 1.95 %; Reduced Hemoglobin 5.3 %THb (0-5.0); Total Hemoglobin 10.6 g/dL (12.0-18.0); pH ABG 7.415 (7.350-7.450)
[2019-12-15 04:28] LABS: Device BIPAP; Modified Allen's Test Pass; Site Drawn LEFT RADIAL
[2019-12-15 04:29] LABS: Expiratory Pressure 8 cmH2O; Inspiratory Pressure 20 cmH2O
[2019-12-15 05:15] LABS: Basophils Percent Auto 0.1 % (0.2-1.2); Eosinophils Absolute Auto 0.1 K/mm3 (0-0.3); Eosinophils Percent Auto 0.7 % (0-4.4); Hematocrit 29.9 % (37.0-47.0); Hemoglobin 9.4 g/dL (12.0-15.0); Immature Granulocyte Absolute 0.41 K/mm3 (0.00-0.031); Immature Granulocyte Percent A 2.4 % (0-0.5); Lymphocytes Absolute Auto 0.53 K/mm3 (0.9-3.2); Lymphocytes Percent Auto 3.1 % (18.3-44.2); Mean Corpuscular HGB Conc 31.4 g/dl (32-36); Mean Corpuscular Hemoglobin 30.7 pg (26-34); Mean Corpuscular Volume 97.7 fl (80-100); Mean Platelet Volume 10.8 fl (7.4-10.4); Monocytes Absolute Auto 0.9 K/mm3 (0.1-0.6); Monocytes Percent Auto 5.4 % (2.6-8.5); Neutrophils Absolute Auto 15.3 K/mm3 (1.3-6.7); Neutrophils Percent Auto 88.3 % (45.5-73.1); Platelet Count Result 208 k/mm3 (150-375); Red Blood Count 3.06 M/mm3 (4.2-5.4); White Blood Count 17.3 K/mm3 (4.5-10.0)
[2019-12-15 05:25] LABS: Lactic Acid 0.8 mmol/L (0.7-2.1)
[2019-12-15 05:29] LABS: Alanine Aminotransferase 9 U/L (4-35); Albumin Level 2.5 g/dL (3.5-5.1); Alkaline Phosphatase 37 U/L (38-126); Aspartate Amino Transferase 13 U/L (14-36); Bilirubin,Total 0.3 mg/dL (0.2-1.3); Blood Urea Nitrogen 61 mg/dL (7-17); Carbon Dioxide 28 mmol/L (22-30); Chloride 107 mmol/L (98-107); Estimated CRCL calculation 38 ml/min; Estimated Glomerular Filt Rate 36; Glucose 159 mg/dL (65-105); Magnesium 1.8 mg/dL (1.6-2.3); Phosphorus 2.6 mg/dL (2.5-4.5); Potassium 3.3 mmol/L (3.4-5.0); Sodium 140 mmol/L (137-145)
[2019-12-15] MEDS: LEVOTHYROXINE SODIUM INJ 100 MCG/5 ML VIAL 56 MCG IV PUSH (05:50)
--- NOTE | 2019-12-15 07:49 | PM.PNGS ---
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 Consider colonoscopically decompression with colon tube left in place. Very difficult case. Subjective Subjective Date/Time Seen: 12/15/19 07:49 On BiPAP and somnolent. Receiving trickle feeds per NG tube. Only a 100 cc per fecal containment device since last night. Review of Systems Review of Systems: ROS unobtainable: unobtainable due to mental condition Exam GI: Inspection: distended, incision ( healing well.) and obesity GI Palp: Yes Firmness to palpation present (GI) Percussion: Yes tympanic to percussion Auscultation: High-pitched bowel sounds present Objective Data Vital Signs Vital Signs: Vital Signs - 24 hr 12/14/19 08:00 12/14/19 08:23 12/14/19 09:11 Temperature 36.5 C Pulse Rate 81 76 96 Respiratory Rate 18 20 20 Blood Pressure 132/66 Pulse Oximetry 100 100 12/14/19 09:20 12/14/19 10:00 12/14/19 12:00 Temperature 36.7 C Pulse Rate 99 78 77 Respiratory Rate 24 H 19 Blood Pressure 138/72 Pulse Oximetry 100 12/14/19 12:44 12/14/19 14:00 12/14/19 14:52 Temperature Pulse Rate 77 77 64 Respiratory Rate 22 H Blood Pressure Pulse Oximetry 12/14/19 14:53 12/14/19 15:30 12/14/19 16:00 Temperature 36.6 C Pulse Rate 64 80 80 Respiratory Rate 22 H 72 H Blood Pressure 123/53 L Pulse Oximetry 100 97 96 12/14/19 17:29 12/14/19 18:00 12/14/19 18:55 Temperature Pulse Rate 79 77 Respiratory Rate 26 H Blood Pressure Pulse Oximetry 12/14/19 19:45 12/14/19 19:54 12/14/19 19:55 Temperature Pulse Rate 76 75 78 Respiratory Rate 23 H 23 H 23 H Blood Pressure Pulse Oximetry 100 12/14/19 20:00 12/14/19 22:00 12/15/19 00:00 Temperature 36.6 C 36.8 C Pulse Rate 82 80 89 Respiratory Rate 28 H 23 H 24 H Blood Pressure 162/69 H 155/72 H 160/61 H Pulse Oximetry 97 99 98 12/15/19 00:05 12/15/19 01:19 12/15/19 02:00 Temperature Pulse Rate 90 76 66 Respiratory Rate 20 20 Blood Pressure 147/68 H Pulse Oximetry 100 96 12/15/19 04:00 12/15/19 05:48 12/15/19 05:57 Temperature 36.4 C Pulse Rate 86 81 83 Respiratory Rate 20 21 H Blood Pressure 155/62 H 169/72 H Pulse Oximetry 98 99 Intake/Output Intake/Output: Intake & Output 12/12/19 12/13/19 12/14/19 12/15/19 23:59 23:59 23:59 23:59 Intake Total 1827 1507 2116 1145 Output Total 2400 5 2225 650 Balance -573 -518 -109 495 Meds/Results Medications: Active Medications Generic Name Dose Route Start Last Admin Trade Name Freq PRN Reason Stop Dose Admin Budesonide 0.5 mg 12/12/19 20:00 12/14/19 19:45 Pulmicort Respule Neb INHALATION 0.5 mg Q12HRT IRIS Administration Dextrose 12.5 gm 12/01/19 23:12 Dextrose 50% Syringe IV PUSH PRN PRN Hypoglycemia Protocol Dornase Yfn 2.5 mg 12/08/19 20:00 12/14/19 19:45 Pulmozyme INHALATION 2.5 mg Q12HRT IRIS Administration Enoxaparin Sodium 30 mg 12/07/19 09:00 12/14/19 09:22 Lovenox SUB-Q 30 mg DAILY IRIS Administration Glucagon 1 mg 12/01/19 23:12 Glucagon For Inj IM PRN PRN Hypoglycemia Protocol Glucose 15 gm 12/01/19 23:12 Glutose 15 PO PRN PRN Hypoglycemia Protocol Dextrose 1,000 mls @ 100 mls/hr 12/01/19 23:12 Dextrose 5% 1,000 Ml IVPB PRN PRN Hypoglycemia Protocol Dextrose 1,000 mls @ 50 mls/hr 12/07/19 07:13 Dextrose 10% IV CONT .Q20H PRN if PN is interrupted Multivitamins 5 ml/ Amino 2,005 mls @ 50 mls/hr 12/07/19 09:00 12/15/19 04:45 Acids/Electrolytes/Dextrose IV CONT 40 mls/hr .Q24H IRIS Infusion Protocol Fat Emulsion Intravenous 250 mls @ 20.833 mls/hr 12/07/19 10:00 12/14/19 22:20 Lipids 20% IVP
[2019-12-15] MEDS: IPRATROPIUM BR 0.02% INH SOLN 0.5 MG/2.5 ML VIAL INHALATION ×2 (08:53→14:18)
[2019-12-15] MEDS: DORNASE ALFA INH SOLN 1 MG/ML 2.5 ML AMP 2.5 MG INHALATION ×2 (08:53→20:27)
[2019-12-15] MEDS: BUDESONIDE RESPULE NEB 0.5 MG/2 ML AMP INHALATION ×2 (08:53→20:27)
--- NOTE | 2019-12-15 09:09 | WPDGIPROGNO ---
Subjective Date/time seen: Very pleasant lady's being followed regarding ileus/pseudo-obstruction. Patient presently is stable. Had very little results with the needle stick main. Persistent dilation of the colon noted. Respiratory status is stable at this time, however it is tenuous. She continues on BiPAP. No significant output of the fecal containment device. Heart rate rhythm regular. Lungs decreased breath sounds bilaterally with coarse breath sounds bilaterally. Abdomen is soft and distended. Bowel sounds were remote. Extremities was revealed no edema. Impression: Persistent ileus/pseudo-obstruction. Presently on treatment C diff. Leukocytosis. May be secondary to above. Increasing shortness of breath. This may be secondary underlying atelectasis/COPD. Malnutrition. Recent pneumonia. History of adenomatous colon polyps. Last colonoscopy was September of 2018. Diabetes mellitus. Hypertension. Hyperlipidemia. Chronic kidney disease. COPD. Hypothyroidism. Rheumatoid arthritis. DVT by history. Obesity. Recommendation: Suppositories b.i.d.. Will proceed with decompression in the morning. Was going to proceed with it today. However, the patient is receiving tube feedings. Anesthesia would like her to be NPO for 6-8 hours for any type of intervention. We will schedule morning. Recheck laboratory studies. Objective Data Vital Signs Vital Signs: Vital Signs - 24 hr 12/14/19 09:11 12/14/19 09:20 12/14/19 10:00 Temperature Pulse Rate 96 99 78 Respiratory Rate 20 24 H Blood Pressure Pulse Oximetry 12/14/19 12:00 12/14/19 12:44 12/14/19 14:00 Temperature 36.7 C Pulse Rate 77 77 77 Respiratory Rate 19 Blood Pressure 138/72 Pulse Oximetry 100 12/14/19 14:52 12/14/19 14:53 12/14/19 15:30 Temperature Pulse Rate 64 64 80 Respiratory Rate 22 H 22 H Blood Pressure Pulse Oximetry 100 97 12/14/19 16:00 12/14/19 17:29 12/14/19 18:00 Temperature 36.6 C Pulse Rate 80 79 Respiratory Rate 72 H 26 H Blood Pressure 123/53 L Pulse Oximetry 96 12/14/19 18:55 12/14/19 19:45 12/14/19 19:54 Temperature Pulse Rate 77 76 75 Respiratory Rate 23 H 23 H Blood Pressure Pulse Oximetry 100 12/14/19 19:55 12/14/19 20:00 03/18/20 22:00 Temperature 36.6 C Pulse Rate 78 82 80 Respiratory Rate 23 H 28 H 23 H Blood Pressure 162/69 H 155/72 H Pulse Oximetry 97 99 12/15/19 00:00 12/15/19 00:05 12/15/19 01:19 Temperature 36.8 C Pulse Rate 89 90 76 Respiratory Rate 24 H 20 Blood Pressure 160/61 H Pulse Oximetry 98 100 12/15/19 02:00 12/15/19 04:00 12/15/19 05:48 Temperature 36.4 C Pulse Rate 66 86 81 Respiratory Rate 20 20 21 H Blood Pressure 147/68 H 155/62 H 169/72 H Pulse Oximetry 96 98 99 12/15/19 05:57 12/15/19 08:50 12/15/19 08:58 Temperature Pulse Rate 83 89 88 Respiratory Rate 21 H 22 H Blood Pressure Pulse Oximetry 98 Intake/Output Intake/Output: Intake & Output 12/12/19 12/13/19 12/14/19 12/15/19 23:59 23:59 23:59 23:59 Intake Total 1827 1507 2116 1145 Output Total 2400 2025 2225 650 Balance -573 -518 -109 495 Meds/Results Medications: Active Medications Generic Name Dose Route Start Last Admin Trade Name Freq PRN Reason Stop Dose Admin Budesonide 0.5 mg 12/12/19 20:00 12/15/19 08:53 Pulmicort Respule Neb INHALATION 0.5 mg Q12HRT IRIS Administration Dextrose 12.5 gm 12/01/19 23:12 Dextrose 50% Syringe IV PUSH PRN PRN Hypoglycemia Protocol Dornase Yfn 2.5 mg 12/08/19 20:00 12/15/19 08:53 Pulmozyme INHALATION 2.5 mg Q12HRT IRIS Administration Enoxaparin Sodium 30 mg 12/07/19 09:00 12/14/19 09:22 Lovenox SUB-Q 30 mg DAILY IRIS Administration Fidaxomicin 200 mg 12/15/19 09:00 Dificid PO Q12HR IRIS Glucagon 1 mg 12/01/19 23:12 Glucagon For Inj IM PRN PRN Hypoglycemia Protocol Glucose 15 g
--- NOTE | 2019-12-15 09:14 | PM.IMPN ---
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 Lucas. 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 The pt does have a hx of colonic ileus in 2016 treated with decompressive colonoscopy. Rectal tube was placed over the weekend. SBS 12/11 showing mild SB dilation but severe ileus. She has good output noted in the fecal bag (although not accurate in the I/Os) after the Neostigmine but repeat dose not helpful. Reglan stopped and Erythromycin started 12/13/19. Miralax also started. Continue to monitor in ICU. Discussed with qc manager and GI. Plan for colonoscopy for decompresion in the morning. (2) Acute respiratory failure: Code(s): J96.00 - Acute respiratory failure, unspecified whether with hypoxia or hypercapnia Status: Acute Assessment and Plan: RN called after pt developed dyspnea following small bowel follow-through on 12/12/2019. CXR showing congestive changes and 1 dose of IV lasix 40mg was given. Good urine output. On 12/12, patient was somnolent and ABG showing 7.19/75/76 so BiPAP started. ABG today showing 7.41/48/78. some improvement and mental status better. CXR again showing congestive changes. Continue Xopenex, Pulmozyme and Pulmicort. Wean BiPAP as tolerated. (3) Asthma: Code(s): J45.909 - Unspecified asthma, uncomplicated Status: Chronic Assessment and Plan: As above. (4) Diarrhea: Qualifiers: Diarrhea type: unspecified type Qualified Code(s): R19.7 - Diarrhea, unspecified Code(s): R19.7 - Diarrhea, unspecified Status: Acute Assessment and Plan: The patient had diarrhea initially after a two week course of levaquin. She is on empiric vancomycin for possible CDiff. She is essentially NPO and is on parenteral nutrition but tolerting trickle feeds. No stool testing has been performed. Will continue empiric vancomycin at this time. Add Fidoxamicin. (5) Acute on chronic renal failure: Qualifiers: Acute renal failure type: unspecified Chronic kidney disease stage: stage 3 (moderate) Qualified Code(s): N17.9 - Acute kidney failure, unspecified; N18.3 - Chronic kidney disease, stage 3 (moderate) Code(s): N17.9 - Acute kidney failure, unspecified; N18.9 - Chronic kidney disease, unspecified Status: Acute Assessment and Plan: Baseline creatinine 1.4. Cr increased 2.6 before trending back down. Currently Cr 1.4. Continues to have good urine output. Continue to monitor. (6) Benign essential hypertension: Code(s): I10 - Essential (primary) hypertension Status: Chronic Assessment and Plan: Blood pressure reviewed On 12/15/2019. Blood pressure reasonably well controlled. Continue Lopressor. (7) DM type 2 (diabetes mellitus, type 2): Code(s): E11.9 - Type 2 diabetes mellitus without complications Status: Chronic Assessment and Plan: A1c 5.8 in Oct 2019. Blood sugars reviewed on 12/15/19. Glucose better controled and 159 this morning. Hyperglycemia related to the TPN. Continue Levemir. Continue Accu-Cheks with sliding scale coverage. Continue hypoglycemia protocol. Glucose should improve off TPN. (8) Abnormal CT scan, kidney: Code(s): R93.429 - Abnormal radiologic findings on diagnostic imaging of unspecified kidney Status: Acute Assessment and Plan: CT scan performed on 12/03/19 reveals incidental finding of irregularity to both kidney margins which cannot exclude an underlying solid mass. CT chest wo contast on 12/08/19 showing 2.3cm right renal mass not compatible with a simple renal cyst. A renal US was performed on 11/24/[address] Zarate for abnormal lab results and revealed small right renal cysts. Defer further testing if indicated
[2019-12-15] MEDS: MAGNESIUM SULF 2 GM/WATER 50ML 2 GM/50 ML BAG IVPB (09:36)
[2019-12-15 09:37] LABS: Glucose Point of Care 121 (65-105)
[2019-12-15] MEDS: ENOXAPARIN 30 MG/0.3 ML SYRINGE SUB-Q (09:37)
[2019-12-15] MEDS: FIDAXOMICIN 200 MG TABLET PO ×2 (09:37→22:08)
[2019-12-15] MEDS: PANTOPRAZOLE SODIUM IV 40 MG VIAL IV PUSH ×2 (09:38→22:08)
[2019-12-15] MEDS: INSULIN DETEMIR 100 UNITS/ML 25 UNITS SUB-Q ×2 (09:50→22:08)
[2019-12-15] MEDS: FAT EMULSIONS IV 20% 250 ML 20.8 ML IVPB (09:50)
[2019-12-15] MEDS: BISACODYL 10 MG SUPPOSITORY RECTAL ×2 (10:55→17:47)
--- NOTE | 2019-12-15 11:03 | PCDIET ---
ICU Rounding Note: Patient is receiving Clinimix 5/15 at increased rate of 50mL/hr with 250mL 20% lipids. This is providing 1352kcal and 60g protein daily which closer meets patient's estimated needs. Patient previously tolerating trickle feedings of Glucerna 1.2 at 10mL/hr with residuals 100mL and below. Tube feedings now on hold for planned colonoscopy tomorrow. Last recorded weight is 115.8kg which is increased. I/O relatively balanced. Bowel Motility: FMS in place with liquid stool. Labs Reviewed: Hgb (9.4), Hct (29.9), Glu (159), BUN (61), Cr (1.4), K (3.3), Alb (2.5) Meds Noted: Erythromycin, Novolog, Protonix, Miralax, Levemir, Atrovent, Vancomycin, KCl Additional Notes: s/p MgSO4. Patient with abdominal incision site, but no pressure sores. Continue to recommend goal Clinimix rate of 70mL/hr until able to resume GI feedings. Following daily in ICU rounds. Assessing/reassessing every Thursday/Thursday.
[2019-12-15] MEDS: BETAMETHASONE/CLOTRIMAZOLE CR 15 GM TUBE 1 APPLIC TOPICAL ×2 (11:08→22:08)
--- NOTE | 2019-12-15 13:12 | WPDINTPN ---
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 - Patient on MiraLax b.i.d. - discussed with GI, decided to perform colonic decompression. Procedure to be done on 12/16/2019. Dulcolax suppository has been ordered in the meantime - will hold tube feeds (2) Acute respiratory failure: Code(s): J96.00 - Acute respiratory failure, unspecified whether with hypoxia or hypercapnia Status: Acute Assessment and Plan: patient with some respiratory distress likely related to abdominal distension, ABGs revealed hypercapnic respiratory failure on transferred to the ICU on 12/13/2019 - ABGs much improved since patient has been wearing BiPAP, will place patient on high flow Vapotherm therapy - pulmonary following the patient, - NG tube in place (3) Protein-calorie malnutrition, moderate: Code(s): E44.0 - Moderate protein-calorie malnutrition Status: Acute Assessment and Plan: patient on TPN and tolerating, - patient was started on trickle feeds on 12/13/2019 most tolerating well. Currently NPO for possible colonoscopy and colonic decompression on 12/16/2019 (4) Acute on chronic renal failure: Qualifiers: Acute renal failure type: unspecified Chronic kidney disease stage: stage 3 (moderate) Qualified Code(s): N17.9 - Acute kidney failure, unspecified; N18.3 - Chronic kidney disease, stage 3 (moderate) Code(s): N17.9 - Acute kidney failure, unspecified; N18.9 - Chronic kidney disease, unspecified Status: Acute Assessment and Plan: creatinine stable and improving - continue to monitor urine output, (5) DM type 2 (diabetes mellitus, type 2): Code(s): E11.9 - Type 2 diabetes mellitus without complications Status: Chronic Assessment and Plan: patient is hyperglycemic likely related to TPN - patient on Levemir with improvement in blood sugars. Continue Accu-Cheks and sliding scale insulin (6) COPD (chronic obstructive pulmonary disease): Qualifiers: COPD type: unspecified COPD Qualified Code(s): J44.9 - Chronic obstructive pulmonary disease, unspecified Code(s): J44.9 - Chronic obstructive pulmonary disease, unspecified Status: Chronic Assessment and Plan: continue bronchodilators and Pulmozyme (7) Diarrhea: Qualifiers: Diarrhea type: unspecified type Qualified Code(s): R19.7 - Diarrhea, unspecified Code(s): R19.7 - Diarrhea, unspecified Status: Acute Assessment and Plan: continue to monitor bowel movement - patient has an FMS - continue p.o. vancomycin (8) Hypothyroidism (acquired): Code(s): E03.9 - Hypothyroidism, unspecified Status: Acute Assessment and Plan: continue IV levothyroxine (9) DVT prophylaxis: Code(s): Z29.9 - Encounter for prophylactic measures, unspecified Status: Acute Assessment and Plan: SCDs and Lovenox Additional Plan discussed with patient and her sister and updated them with patient's condition and plan of care. I answered all questions discussed with surgery and GI. Discussed with Code status: Full code. Critical care time spent: 34 minutes Due to a high probability of clinically significant, life threatening deterioration, the patient required my highest level of preparedness to intervene emergently and I personally spent this critical care time directly and personally managing the patient. This critical care time included obtaining a history; examining the patient; pulse oximetry; ordering and review of studies; arranging urgent treatment with development of a management plan; evaluation of p
[2019-12-15 13:27] LABS: Glucose Point of Care 118 (65-105)
--- NOTE | 2019-12-15 13:50 | PC.NURSE ---
This patient, Cristina Bravo, was received from ICU-9 into 231 on 12/15/19 at 1350. Personal belongings list checked and signed. Patient/family oriented to unit policies and routines
--- NOTE | 2019-12-15 13:57 | PC.NURSE ---
This patient, Cristina Bravo, was transferred to [[id number]] on 12/15/19 at 1357. Personal belongings sent with patient. Belongings list checked and signed with receiving [ ]. Report given to [Deanne VINCENT]. Appropriate documentation sent with patient.
[2019-12-15 16:37] LABS: Glucose Point of Care 126 (65-105)
[2019-12-15] MEDS: polyethylene glycoL 3350 17 GM POWD.PACK PO (17:49)
--- NOTE | 2019-12-15 19:48 | PM.PNPUL ---
Progress Note: A&P Assessment and Plan (1) Asthma: Qualifiers: Asthma complication type: uncomplicated Asthma persistence: unspecified Asthma severity: unspecified severity Qualified Code(s): J45.909 - Unspecified asthma, uncomplicated Code(s): J45.909 - Unspecified asthma, uncomplicated Status: Chronic Assessment and Plan: Has a history of asthma, with pulmicort added. CXR shows increased pulmonary edema. She is not short of breath currently, and has had very low oxygen requirements. 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 Subjective Date/time seen: 12/15/19 19:48 This 79 yo female is seen for asthma, Marielle's syndrome and acute hypercapneic respiratory failure. She was moved to the ICU for Neostigmine administration. She is awake today, not in distress. CXR 12/15/2019 1. Congestive changes, cardiomegaly, small to moderate left pleural effusion. 2. Adjacent subsegmental atelectasis. Pneumonia not excludable. Interval history: Lethargy was from hypercapnia, improved somewhat with BIPAP therapy. Not getting sedatives or narcotics. She is complaining that the mask is not comfortable. ABD continues to be distentend with typmpanic and hyperactive bowel sounds on Neostigmine. Review of Systems Review of Systems: All systems reviewed & are unremarkable except as noted in HPI and below Exam Narrative: Exam Narrative: Not in distress, speaking clearly Const: General: healthy appearing Orientation/consciousness: patient oriented x3 HENMT: Ears: hearing grossly normal bilaterally General nose exam: Normal external nose present and Normal nares present Face and sinus: normal facial exam Mouth: Yes Normal oral and palatal mucosa present Throat: posterior oropharynx normal Eyes: General: appearance normal, both eyes and all related structures Neck: Neck: no lymphadenopathy Chest: Chest palpation & inspection: normal inspection of the chest Resp: Effort & Inspection: normal respiratory effort Auscultation: diminished lung sounds (in bases) Cardio: Rate: regular rate Rhythm: regular rhythm Skin: General skin exam: normal color Extrem: General: normal to inspection Psych: Appearance: grossly normal Mental Status: mental status grossly normal Speech and movement: Clear speech present Affect: normal affect Attitude: cooperative Objective Data Vital Signs Vital Signs: Vital Signs - 24 hr 12/14/19 19:54 12/14/19 19:55 12/14/19 20:00 Temperature 36.6 C Pulse Rate 75 78 82 Respiratory Rate 23 H 23 H 28 H Blood Pressure 162/69 H Pulse Oximetry 100 97 12/14/19 22:00 12/15/19 00:00 12/15/19 00:05 Temperature 36.8 C Pulse Rate 80 89 90 Respiratory Rate 23 H 24 H Blood Pressure 155/72 H 160/61 H Pulse Oximetry 99 98 12/15/19 01:19 12/15/19 02:00 12/15/19 04:00 Temperature 36.4 C Pulse Rate 76 66 86 Respiratory Rate 20 20 20 Blood Pressure 147/68 H 155/62 H Pulse Oximetry 100 96 98 12/15/19 05:48 12/15/19 05:57 12/15/19 08:00 Temperature 36.7 C Pulse Rate 81 83 74 Respiratory Rate 21 H 20 Blood Pressure 169/72 H 161/65 H Pulse Oximetry 99 98 12/15/19 08:50 12/15/19 08:58 12/15/19 09:13 Temperature Pulse Rate 89 88 76 Respiratory Rate 21 H 22 H 20 Blood Pressure Pulse Oximetry 98 12/15/19 09:15 12/15/19 10:00 12/15/19 10:20 Temperature Pulse Rate 79 Respiratory Rate 22 H Blood Pressure 185/67 H Pulse Oximetry 98 96 95 12/15/19 12:00 12/15/19 13:24 12/15/19 14:06 Temperature 36.9 C Pulse Rate 84 96 91 Respiratory Rate 24 H Blood Pressure 166/83 H Pulse Oximetry 95 12/15/19 14:19 12/15/19 14:32 12/15/19 16:00 Temperature 36.4 C L Pulse Rate 88 91 104 H Respiratory Rate 20 18 20 Blood Pressure 153/76 H Pulse Oximetry 95 12/15/19 17:49 12/15/19
[2019-12-15 21:12] LABS: Glucose Point of Care 130 (65-105)
[2019-12-16] VITALS (30 sets, daily range): BP systolic 115–170; BP diastolic 40–85; PULSE 75–107; RESP 16–28; TEMP 35.9–36.9; O2SAT 92–100
[2019-12-16] MEDS: METOPROLOL TARTRATE INJ 5 MG/5 ML VIAL IV PUSH ×4 (05:20→17:02)
[2019-12-16] MEDS: LEVOTHYROXINE SODIUM INJ 100 MCG/5 ML VIAL 56 MCG IV PUSH (05:21)
[2019-12-16 05:47] LABS: Hemoglobin 9.6 g/dL (12.0-15.0); Mean Corpuscular Hemoglobin 31.2 pg (26-34); Mean Corpuscular Volume 97.4 fl (80-100); Mean Platelet Volume 10.7 fl (7.4-10.4); Platelet Count Result 219 k/mm3 (150-375); Red Blood Count 3.08 M/mm3 (4.2-5.4)
[2019-12-16 06:01] LABS: Phosphorus 3.3 mg/dL (2.5-4.5); Triglycerides 194 mg/dL (<150)
[2019-12-16 06:40] LABS: Glucose Point of Care 111 (65-105)
[2019-12-16] MEDS: BUDESONIDE RESPULE NEB 0.5 MG/2 ML AMP INHALATION ×2 (08:00→20:10)
[2019-12-16] MEDS: DORNASE ALFA INH SOLN 1 MG/ML 2.5 ML AMP 2.5 MG INHALATION ×2 (08:01→20:10)
[2019-12-16] MEDS: FAT EMULSIONS IV 20% 250 ML 20.8 ML IVPB (08:49)
[2019-12-16] MEDS: BISACODYL 10 MG SUPPOSITORY RECTAL ×2 (08:50→16:24)
[2019-12-16] MEDS: FIDAXOMICIN 200 MG TABLET PO ×2 (08:50→22:05)
[2019-12-16] MEDS: PANTOPRAZOLE SODIUM IV 40 MG VIAL IV PUSH ×2 (08:50→22:05)
[2019-12-16] MEDS: BETAMETHASONE/CLOTRIMAZOLE CR 15 GM TUBE 1 APPLIC TOPICAL ×2 (08:50→22:05)
[2019-12-16] MEDS: ENOXAPARIN 30 MG/0.3 ML SYRINGE SUB-Q (08:50)
[2019-12-16] MEDS: polyethylene glycoL 3350 17 GM POWD.PACK PO (08:51)
[2019-12-16] MEDS: INSULIN DETEMIR 100 UNITS/ML 25 UNITS SUB-Q (08:52)
[2019-12-16 09:44] LABS: Alanine Aminotransferase 7 U/L (4-35); Albumin Level 2.7 g/dL (3.5-5.1); Alkaline Phosphatase 43 U/L (38-126); Aspartate Amino Transferase 15 U/L (14-36); Bilirubin,Total 0.4 mg/dL (0.2-1.3); Blood Urea Nitrogen 53 mg/dL (7-17); Calcium 8.4 mg/dL (8.4-10.2); Carbon Dioxide 32 mmol/L (22-30); Chloride 108 mmol/L (98-107); Estimated CRCL calculation 43 ml/min; Estimated Glomerular Filt Rate 43; Glucose 115 mg/dL (65-105); Potassium 3.7 mmol/L (3.4-5.0); Sodium 140 mmol/L (137-145)
--- NOTE | 2019-12-16 10:56 | PCOTNOTE ---
Attempted to see patient this am, however patient was off floor for colonoscopy at this time.
--- NOTE | 2019-12-16 11:02 | WPDANESEPPF ---
Anes - Initial Pre Proc Eval Procedure: Operation Date: 12/06/19 15:00 Proposed Procedures p Exploratory Laparotomy for Small Bowel Obstruction - Justin Lucas MD Operation Date: 12/16/19 11:00 Proposed Procedures p Colonoscopy - Feliciano Bright DO Date/Time: 12/16/19 11:02 Surgeon: Codey Fields MD Pre Op Diagnosis: Small bowel obstruction Patient Data Age: 79 Gender: F Height: 5 ft 6 in Weight: 111.2 kg Last Vital Signs Temp 96.7 F L 12/16/19 08:00 Pulse 89 12/16/19 10:00 Resp 20 12/16/19 08:24 BP 160/65 H 12/16/19 08:00 Pulse Ox 92 12/16/19 09:00 Allergies Allergy/AdvReac Type Severity Reaction Status Date / Time iohexol Allergy Intermediate itchey Verified 12/06/19 14:13 throat and ears Cephalosporins Allergy Mild HIVES Verified 12/06/19 14:13 rofecoxib Allergy Mild HEADACHES Verified 12/06/19 14:13 clindamycin Allergy Unknown Unknown Verified 12/06/19 14:13 doxycycline Allergy Unknown Itching Verified 12/06/19 14:13 Penicillins Allergy Unknown Hives Verified 12/06/19 14:13 risedronate sodium Allergy Unknown eye Verified 12/06/19 14:13 inflammation Home Medications Medication Instructions Recorded Confirmed Type glimepiride 2 mg tablet 2 mg PO QAM #90 tablet 09/07/19 12/06/19 Rx levothyroxine 112 mcg tablet 112 mcg PO DAILY #90 tablet 09/07/19 12/06/19 Rx rosuvastatin 40 mg tablet 40 mg PO DAILY #90 tablet 11/14/19 12/06/19 Rx hydrochlorothiazide 12.5 mg tablet 12.5 mg PO DAILY tablet 11/24/19 12/06/19 History hydrocodone 5 mg-acetaminophen 325 1 tablet PO Q6H PRN #50 tablet 11/24/19 12/06/19 Rx mg tablet lisinopril 20 mg tablet 20 mg PO BID tablet 11/24/19 12/06/19 History trazodone 50 mg tablet 50 - 100 mg PO HS PRN tablet 11/24/19 12/06/19 History levofloxacin 500 mg tablet 500 mg PO DAILY #10 tablet 11/28/19 12/06/19 Rx albuterol sulfate 1 - 2 puff INHALATION Q6-8H PRN 12/01/19 12/06/19 History Laboratory Tests 12/15/19 12/15/19 12/15/19 13:25 16:30 21:10 WBC RBC Hgb Hct MCV MCH MCHC RDW Plt Count MPV Sodium Potassium Chloride Carbon Dioxide BUN Creatinine Estim Creat Clear Calc Estimated GFR Glucose POC Capillary Glucose 118 mg/dl H mg/dl 126 mg/dl H mg/dl 130 mg/dl H mg/dl (65-105) (65-105) (65-105) Calcium Phosphorus Total Bilirubin AST ALT Alkaline Phosphatase Total Protein Albumin Triglycerides 12/16/19 12/16/19 12/16/19 05:36 05:36 05:36 WBC 20.0 K/mm3 H K/mm3 (4.5-10.0) RBC 3.08 M/mm3 L M/mm3 (4.2-5.4) Hgb 9.6 g/dL L g/dL (12.0-15.0) Hct 30.0 % L % (37.0-47.0) MCV 97.4 fl fl (80-100) MCH 31.2 pg pg (26-34) MCHC 32.0 g/dl g/dl (32-36) RDW 14.0 % % (11.5-14.5) Plt Count 219 k/mm3 k/mm3 (150-375) MPV 10.7 fl H fl (7.4-10.4) Sodium Potassium Chloride Carbon Dioxide BUN Creatinine Estim Creat Clear Calc Estimated GFR Glucose POC Capillary Glucose Calcium Phosphorus 3.3 mg/dL mg/dL (2.5-4.5) Total Bilirubin AST ALT Alkaline Phosphatase Total Protein Albumin Triglycerides 194 mg/dL H mg/dL (<150) 12/16/19 12/16/19 06:36 09:18 WBC RBC Hgb Hct MCV MCH MCHC RDW Plt Count MPV Sodium 140 mmol/L mmol/L (137-145) Potassium
--- NOTE | 2019-12-16 11:14 | WPDHPUPDATE1 ---
History and Physical Update Update Date/Time: 12/16/19 11:14 History and Physical has been reviewed, including an updated exam of the patient. There are NO changes in the patient's condition. Risks, benefits, and alternatives have been discussed and questions answered. Patient agrees to proceed with procedure.
[2019-12-16] MEDS: LACTATED RINGERS 1,000 ML 150 ML IV CONT (11:19)
--- NOTE | 2019-12-16 11:44 | PCDIET ---
Nutrition Follow-Up Complete: Nutrition Diagnosis: Inadequate oral intake related to diarrhea as evidenced by poor intake reported and weight loss of 6 pounds in 1 week. Nutrition Goal: Adequate intake of at least 75% of meals/supplements Goal not met. Patient remains on Clinimix 5/15 E at 50mL/hr with 250mL 20% lipids. Tube feedings on hold for colonic decompression today. Last recorded weight is 111.2 kg which is decreased. Bowel Motility: Small amount of BM reported in FMS. Labs Reviewed: Glu (115), BUN (53), Cr (1.2), Alb (2.7), TG (194) Meds Noted: Dulcolax, Novolog, Levemir, Atrovent, Protonix, Miralax, Vancomycin Additional Notes: Recommend increasing Clinimix to 70mL/hr until able to resume oral/gastric feedings. Nutrition Monitoring and Evaluation: Follow up every Thursday/Thursday.
--- NOTE | 2019-12-16 11:55 | PCPTNOTE ---
Patient out of room for colonoscopy this A.M., unable to see for PT.
--- NOTE | 2019-12-16 12:13 | PM.IMPN ---
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 Lucas. 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 The pt does have a hx of colonic ileus in 2016 treated with decompressive colonoscopy. Rectal tube was placed over last weekend. SBS 12/11 showing mild SB dilation but severe ileus. She has relatively poor output after the Neostigmine with repeat dose not helpful. Reglan stopped and Erythromycin started 12/13/19. Miralax also started. Tolerated Colonoscopy for decompression this morning. Appreciate GI input. (2) Acute respiratory failure: Code(s): J96.00 - Acute respiratory failure, unspecified whether with hypoxia or hypercapnia Status: Acute Assessment and Plan: RN called after pt developed dyspnea following small bowel follow-through on 12/12/2019. CXR showing congestive changes and 1 dose of IV lasix 40mg was given. Good urine output. On 12/12, patient was somnolent and ABG showing 7.19/75/76 so BiPAP started. ABG yesterday showing 7.41/48/78. Did not wear mask last night. CXR showing improvement in the congestive changes. Continue Xopenex, Pulmozyme and Pulmicort. Encouraged BiPAP use at night and with naps. (3) Asthma: Code(s): J45.909 - Unspecified asthma, uncomplicated Status: Chronic Assessment and Plan: As above. (4) Diarrhea: Qualifiers: Diarrhea type: unspecified type Qualified Code(s): R19.7 - Diarrhea, unspecified Code(s): R19.7 - Diarrhea, unspecified Status: Acute Assessment and Plan: The patient had diarrhea initially after a two week course of levaquin. She is on empiric vancomycin for possible CDiff. She is NPO and is on parenteral nutrition. No stool testing has been performed. Will continue empiric vancomycin and Fidoxamicin. (5) Acute on chronic renal failure: Qualifiers: Acute renal failure type: unspecified Chronic kidney disease stage: stage 3 (moderate) Qualified Code(s): N17.9 - Acute kidney failure, unspecified; N18.3 - Chronic kidney disease, stage 3 (moderate) Code(s): N17.9 - Acute kidney failure, unspecified; N18.9 - Chronic kidney disease, unspecified Status: Acute Assessment and Plan: Baseline creatinine 1.4. Cr increased 2.6 before trending back down. Currently Cr 1.2. Urine output decreased yesterday compared to prior. Continue to monitor. (6) Benign essential hypertension: Code(s): I10 - Essential (primary) hypertension Status: Chronic Assessment and Plan: Blood pressure reviewed on 12/16/2019. Blood pressure reasonably well controlled. Continue Lopressor. Add IV enapril if BP worsens. Hydralazine IV available for severe hypertension. (7) DM type 2 (diabetes mellitus, type 2): Code(s): E11.9 - Type 2 diabetes mellitus without complications Status: Chronic Assessment and Plan: A1c 5.8 in Oct 2019. Glucose reviewed on 12/17/19. Glucose well controlled over the past 24 hours. Hyperglycemia related to the TPN. Will decrease Levemir. Continue Accu-Cheks with sliding scale coverage. Continue hypoglycemia protocol. Glucose should improve off TPN. (8) Abnormal CT scan, kidney: Code(s): R93.429 - Abnormal radiologic findings on diagnostic imaging of unspecified kidney Status: Acute Assessment and Plan: CT scan performed on 12/03/19 reveals incidental finding of irregularity to both kidney margins which cannot exclude an underlying solid mass. CT chest wo contast on 12/08/19 showing 2.3cm right renal mass not compatible with a simple renal cyst. A renal US was performed on 11/24/[address] Zarate for abnormal lab results and revealed small right renal cysts. Defer further testing if indicated to PCP. (9) Hypo
[2019-12-16 12:36] LABS: Glucose Point of Care 79 (65-105)
--- NOTE | 2019-12-16 14:40 | PCPTNOTE ---
The patient treatment was held on 12/16/2019 per patient and nursing following procedures done earlier in the day. Will plan to continue treatment per plan of care.
[2019-12-16 16:32] LABS: Glucose Point of Care 79 (65-105)
[2019-12-16 21:46] LABS: Glucose Point of Care 71 (65-105)
[2019-12-17] VITALS (25 sets, daily range): BP systolic 134–155; BP diastolic 55–66; PULSE 77–98; RESP 18–20; TEMP 36–37.1; O2SAT 93–98
[2019-12-17] MEDS: METOPROLOL TARTRATE INJ 5 MG/5 ML VIAL IV PUSH ×4 (01:43→18:27)
[2019-12-17 05:11] LABS: Hematocrit 26.2 % (37.0-47.0); Hemoglobin 8.3 g/dL (12.0-15.0); Mean Corpuscular HGB Conc 31.7 g/dl (32-36); Mean Corpuscular Hemoglobin 30.5 pg (26-34); Mean Corpuscular Volume 96.3 fl (80-100); Mean Platelet Volume 11.2 fl (7.4-10.4); Platelet Count Result 201 k/mm3 (150-375); Red Blood Count 2.72 M/mm3 (4.2-5.4); Red Cell Distribution Width 14.2 % (11.5-14.5); White Blood Count 13.6 K/mm3 (4.5-10.0)
[2019-12-17 05:41] LABS: Potassium 3.7 mmol/L (3.4-5.0)
[2019-12-17 06:16] LABS: Alanine Aminotransferase 7 U/L (4-35); Albumin Level 2.4 g/dL (3.5-5.1); Alkaline Phosphatase 44 U/L (38-126); Aspartate Amino Transferase 15 U/L (14-36); Bilirubin,Total 0.2 mg/dL (0.2-1.3); Blood Urea Nitrogen 47 mg/dL (7-17); Calcium 8.1 mg/dL (8.4-10.2); Carbon Dioxide 32 mmol/L (22-30); Chloride 109 mmol/L (98-107); Estimated CRCL calculation 41 ml/min; Estimated Glomerular Filt Rate 40; Glucose 140 mg/dL (65-105); Magnesium 1.9 mg/dL (1.6-2.3); Phosphorus 3.8 mg/dL (2.5-4.5); Sodium 141 mmol/L (137-145)
[2019-12-17] MEDS: LEVOTHYROXINE SODIUM INJ 100 MCG/5 ML VIAL 56 MCG IV PUSH (06:53)
[2019-12-17 07:50] LABS: Glucose Point of Care 166 (65-105)
[2019-12-17] MEDS: DORNASE ALFA INH SOLN 1 MG/ML 2.5 ML AMP 2.5 MG INHALATION ×2 (08:46→20:15)
[2019-12-17] MEDS: BUDESONIDE RESPULE NEB 0.5 MG/2 ML AMP INHALATION ×2 (08:46→20:15)
--- NOTE | 2019-12-17 08:54 | PM.IMPN ---
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 Lucas. 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 The pt does have a hx of colonic ileus in 2016 treated with decompressive colonoscopy. Rectal tube was placed over last weekend. SBS 12/11 showing mild SB dilation but severe ileus. She has relatively poor output after the Neostigmine with repeat dose not helpful. Reglan stopped and Erythromycin started 12/13/19. Miralax also started. Decompression by colonoscopy on 12/16/19 and has rectal tube to suction. Appreciate GI input. Diet per GI. (2) Acute respiratory failure: Code(s): J96.00 - Acute respiratory failure, unspecified whether with hypoxia or hypercapnia Status: Acute Assessment and Plan: RN called after pt developed dyspnea following small bowel follow-through on 12/12/2019. CXR showing congestive changes and 1 dose of IV lasix 40mg was given. Good urine output. On 12/12, patient was somnolent and ABG showing 7.19/75/76 so BiPAP started. ABG on 12/14 showing 7.41/48/78. Not wearing mask. CXR showing CMG and pulmonary edema. Continue Xopenex, Pulmozyme and Pulmicort. Lasix IV once. Will stop BiPAP since not wearing. (3) Asthma: Code(s): J45.909 - Unspecified asthma, uncomplicated Status: Chronic Assessment and Plan: As above. (4) Diarrhea: Qualifiers: Diarrhea type: unspecified type Qualified Code(s): R19.7 - Diarrhea, unspecified Code(s): R19.7 - Diarrhea, unspecified Status: Acute Assessment and Plan: The patient had diarrhea initially after a two week course of levaquin. She is on empiric vancomycin for possible CDiff. She is NPO and is on parenteral nutrition. No stool testing has been performed. Will continue empiric Fidoxamicin. Patient has completed a course of vancomycin. (5) Acute on chronic renal failure: Qualifiers: Acute renal failure type: unspecified Chronic kidney disease stage: stage 3 (moderate) Qualified Code(s): N17.9 - Acute kidney failure, unspecified; N18.3 - Chronic kidney disease, stage 3 (moderate) Code(s): N17.9 - Acute kidney failure, unspecified; N18.9 - Chronic kidney disease, unspecified Status: Acute Assessment and Plan: Baseline creatinine 1.4. Cr increased 2.6 before trending back down. Currently Cr 1.3. Urine output reasonable. Continue to monitor. (6) Benign essential hypertension: Code(s): I10 - Essential (primary) hypertension Status: Chronic Assessment and Plan: Blood pressure reviewed on 12/17/2019. Blood pressure reasonably well controlled. Continue Lopressor. Hydralazine IV available for severe hypertension. (7) DM type 2 (diabetes mellitus, type 2): Code(s): E11.9 - Type 2 diabetes mellitus without complications Status: Chronic Assessment and Plan: A1c 5.8 in Oct 2019. Glucose reviewed on 12/18/19. Glucose higher now since decreasing Levemir. Will continue to monitor for now. Continue Accu-Cheks with sliding scale coverage. Continue hypoglycemia protocol. Glucose should improve off TPN. (8) Hypothyroidism (acquired): Code(s): E03.9 - Hypothyroidism, unspecified Status: Acute Assessment and Plan: Stable. Continue IV levothyroxine. (9) Tachycardia: Code(s): R00.0 - Tachycardia, unspecified Status: Acute Assessment and Plan: HR much improved. Tachycardia is likely due to acute illness. Heart rate well controlled with IV metoprolol. Continue to monitor. (10) Protein-calorie malnutrition, moderate: Code(s): E44.0 - Moderate protein-calorie malnutrition Status: Acute Assessment and Plan: Will improve once patient can advance diet. Continu
[2019-12-17] MEDS: PANTOPRAZOLE SODIUM IV 40 MG VIAL IV PUSH ×2 (09:29→22:13)
[2019-12-17] MEDS: ENOXAPARIN 30 MG/0.3 ML SYRINGE SUB-Q (09:29)
[2019-12-17] MEDS: INSULIN DETEMIR 100 UNITS/ML 18 UNITS SUB-Q ×2 (09:30→22:14)
[2019-12-17] MEDS: FAT EMULSIONS IV 20% 250 ML 20.8 ML IVPB (09:32)
[2019-12-17] MEDS: BETAMETHASONE/CLOTRIMAZOLE CR 15 GM TUBE 1 APPLIC TOPICAL (09:33)
--- NOTE | 2019-12-17 10:09 | WPDGIPROGNO ---
Progress Note: A&P Additional Plan Patient seen in evaluation while Dr. ulloa could not available today. Patient remains comfortable at rest. Denies abdominal pain. Vital signs stable. HEENT exam reveals NG tube in place. Abdomen is soft. Bowel sounds present. No organomegaly. Nontender. Colon decompression tube remains in place today as well. Impression 1. Pseudo obstruction. Etiology undetermined. Plan to correct electrolytes. Continue supportive care. Will continue NPO status with NG tube and colon decompression tube for now. Patient to remain on erythromycin. Previously was on Reglan trial. Impression 1. [place] syndrome, pseudo-obstruction of the colon. Now status post decompression tube and NG tube decompression. Will continue to try to correct electrolytes. Supportive care. A trial of erythromycin and progress. Subjective Date/time seen: 12/17/19 10:09 Objective Data Vital Signs Vital Signs: Vital Signs - 24 hr 12/16/19 11:00 12/16/19 12:15 12/16/19 12:25 Temperature 36.9 C Pulse Rate 107 H 99 98 Respiratory Rate 22 H 22 H 28 H Blood Pressure 143/58 H 115/44 L 124/40 L Pulse Oximetry 93 99 98 12/16/19 12:35 12/16/19 13:19 12/16/19 13:51 Temperature Pulse Rate 87 98 80 Respiratory Rate 28 H 20 Blood Pressure 136/61 Pulse Oximetry 95 12/16/19 14:00 12/16/19 14:21 12/16/19 16:00 Temperature 36.6 C Pulse Rate 75 78 89 Respiratory Rate 20 24 H Blood Pressure 143/66 H Pulse Oximetry 97 12/16/19 17:02 12/16/19 18:00 12/16/19 20:00 Temperature 36.2 C L Pulse Rate 90 82 90 Respiratory Rate 24 H Blood Pressure 148/53 H Pulse Oximetry 100 12/16/19 20:10 12/16/19 20:20 12/16/19 20:24 Temperature Pulse Rate 92 91 Respiratory Rate 20 20 Blood Pressure Pulse Oximetry 92 12/16/19 22:00 12/17/19 00:00 12/17/19 01:43 Temperature 36.5 C Pulse Rate 91 82 83 Respiratory Rate 20 Blood Pressure 155/66 H Pulse Oximetry 96 12/17/19 01:45 12/17/19 01:55 12/17/19 02:00 Temperature Pulse Rate 89 89 77 Respiratory Rate 20 20 Blood Pressure Pulse Oximetry 12/17/19 04:00 12/17/19 06:00 12/17/19 06:52 Temperature 36.0 C L Pulse Rate 86 86 88 Respiratory Rate 18 Blood Pressure 137/57 L Pulse Oximetry 96 12/17/19 08:00 12/17/19 08:47 12/17/19 09:06 Temperature 36.5 C Pulse Rate 88 77 90 Respiratory Rate 20 20 20 Blood Pressure 134/57 L Pulse Oximetry 95 93 Intake/Output Intake/Output: Intake & Output 12/14/19 12/15/19 12/16/19 12/17/19 23:59 23:59 23:59 23:59 Intake Total 2116 1901 2505 2455 Output Total 2225 1250 1175 1225 Balance -217 962 0016 1230 Meds/Results Medications: Active Medications Generic Name Dose Route Start Last Admin Trade Name Freq PRN Reason Stop Dose Admin Bisacodyl 10 mg 12/15/19 09:00 12/16/19 16:24 Dulcolax Suppository RECTAL 10 mg BID IRIS Administration Budesonide 0.5 mg 12/12/19 20:00 12/17/19 08:46 Pulmicort Respule Neb INHALATION 0.5 mg Q12HRT IRIS Administration Clotrimazole 1 applic 12/15/19 09:30 12/17/19 09:33 Lotrisone Cream TOPICAL 1 applic Q12HR IRIS Administration Dextrose 12.5 gm 12/01/19 23:12 Dextrose 50% Syringe IV PUSH PRN PRN Hypoglycemia Protocol Dornase Yfn 2.5 mg 12/08/19 20:00 12/17/19 08:46 Pulmozyme INHALATION 2.5 mg Q12HRT IRIS Administration Enoxaparin Sodium 30 mg 12/07/19 09:00 12/17/19 09:29 Lovenox SUB-Q 30 mg DAILY IRIS Administration Fidaxomicin 200 mg 12/15/19 09:00 12/16/19 22:05 Dificid PO 200 mg Q12HR IRIS Administration Glucagon 1 mg 12/01/19 23:12 Glucagon For Inj IM PRN PRN Hypoglycemia Protocol Glucose 15 gm 12/01/19 23:12 Glutose 15 PO PRN PRN Hypoglycemia Protocol Hydralazine HCl 10 mg 12/15/19 13:13 Apresoline Hcl Inj IV PUSH Q4H PRN Blood Pressure - High Dextrose 1
--- NOTE | 2019-12-17 11:01 | WPDANESPN ---
Anes - Prog Note Post-Op Date/Time: 12/17/19 11:01 Cardiovascular status: normal Respiratory status: other (NC) Airway patency: baseline Mental status: baseline Post-Op hydration status: normal Vital Signs: Last Vital Signs Temp 36.5 C 12/17/19 08:00 Pulse 90 12/17/19 09:06 Resp 20 12/17/19 09:06 BP 134/57 L 12/17/19 08:00 Pulse Ox 93 12/17/19 08:47 I/O: Intake & Output 12/16/19 12/17/19 12/17/19 23:59 07:59 15:59 Intake Total 818 860 2950 Output Total 550 1225 Balance -450 -875 2105 Laboratory Tests 12/17/19 04:41 12/17/19 04:41 12/16/19 12/16/19 12/16/19 12:33 16:30 21:05 WBC RBC Hgb Hct MCV MCH MCHC RDW Plt Count MPV Sodium Potassium Chloride Carbon Dioxide BUN Creatinine Estim Creat Clear Calc Estimated GFR Glucose POC Capillary Glucose 79 79 71 Calcium Phosphorus Magnesium Total Bilirubin AST ALT Alkaline Phosphatase Total Protein Albumin 12/17/19 12/17/19 12/17/19 04:41 04:41 07:41 WBC 13.6 H RBC 2.72 L Hgb 8.3 L Hct 26.2 L MCV 96.3 MCH 30.5 MCHC 31.7 L RDW 14.2 Plt Count 201 MPV 11.2 H Sodium 141 Potassium 3.7 Chloride 109 H Carbon Dioxide 32 H BUN 47 H Creatinine 1.30 H Estim Creat Clear Calc 41 Estimated GFR 40 L Glucose 140 H POC Capillary Glucose 166 H Calcium 8.1 L Phosphorus 3.8 Magnesium 1.9 Total Bilirubin 0.2 AST 15 ALT 7 Alkaline Phosphatase 44 Total Protein 5.0 L Albumin 2.4 L Microbiology 12/14/19 16:35 Nasopharynx MRSA Culture - Final Post-procedural complaints: none Patient Feedback: Patient satisfied with anesthetic care.
[2019-12-17 12:11] LABS: Glucose Point of Care 219 (65-105)
[2019-12-17] MEDS: INSULIN ASPART (*BKC) 100 UNITS/ML SUB-Q ×2 (12:19→18:28)
[2019-12-17] MEDS: FUROSEMIDE INJ 40 MG/4 ML VIAL 20 MG IV PUSH (12:19)
--- NOTE | 2019-12-17 13:44 | PM.PNGS ---
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 Continue NG suction today and recheck again tomorrow with labs and KUB. Hopefully can start oral intake soon. (2) Acute respiratory failure: Code(s): J96.00 - Acute respiratory failure, unspecified whether with hypoxia or hypercapnia Status: Acute Assessment and Plan: Much improved. Appreciate medical care. Subjective Subjective Date/Time Seen: 12/17/19 13:44 Awake alert and talkative. Enjoying some ice chips. NG tube is to suction. Has had 700 cc output so far today. Denies any abdominal pain. Has rectal decompression tube to suction as placed yesterday after colonoscopic decompression. Review of Systems Review of Systems: All systems reviewed & are unremarkable except as noted in HPI and below Constitutional: Constitutional: Denies headache(s) ENT: Denies headache(s) Cardiovascular: Cardiovascular: Denies chest pain and Denies dyspnea Respiratory: Respiratory: Denies cough and Denies dyspnea Gastrointestinal: Gastrointestinal: Reports as per HPI Neurologic: Denies confusion and Denies headache(s) Psychiatric: Psychiatric: Denies confusion Exam Const: General: comfortable and no acute distress; No confusion Orientation/consciousness: patient oriented x3 and No confusion Resp: Effort & Inspection: normal respiratory effort Auscultation: clear to auscultation bilaterally Cardio: Rate: regular rate Rhythm: regular rhythm GI: Inspection: distended, incision (Less distended, laparotomy incision healing well) and obesity GI Palp: Yes Soft to palpation, No Tenderness to palpation present (GI), No Guarding due to palpation present (GI) and No Rebound tenderness present Percussion: Yes tympanic to percussion Auscultation: Hypoactive bowel sounds present Neuro: General: patient oriented x3, no focal motor deficits and No confusion Extrem: General: no calf tenderness and no edema Psych: Affect: normal affect Insight: Good insight present (Psych) Judgement: Good judgement present (Psych) Objective Data Vital Signs Vital Signs: Vital Signs - 24 hr 12/16/19 13:51 12/16/19 14:00 12/16/19 14:21 Temperature Pulse Rate 80 75 78 Respiratory Rate 20 20 Blood Pressure Pulse Oximetry 12/16/19 16:00 12/16/19 17:02 12/16/19 18:00 Temperature 36.6 C Pulse Rate 89 90 82 Respiratory Rate 24 H Blood Pressure 143/66 H Pulse Oximetry 97 12/16/19 20:00 12/16/19 20:10 12/16/19 20:20 Temperature 36.2 C L Pulse Rate 90 92 91 Respiratory Rate 24 H 20 20 Blood Pressure 148/53 H Pulse Oximetry 100 12/16/19 20:24 12/16/19 22:00 12/17/19 00:00 Temperature 36.5 C Pulse Rate 91 82 Respiratory Rate 20 Blood Pressure 155/66 H Pulse Oximetry 92 96 12/17/19 01:43 12/17/19 01:45 12/17/19 01:55 Temperature Pulse Rate 83 89 89 Respiratory Rate 20 20 Blood Pressure Pulse Oximetry 12/17/19 02:00 12/17/19 04:00 12/17/19 06:00 Temperature 36.0 C L Pulse Rate 77 86 86 Respiratory Rate 18 Blood Pressure 137/57 L Pulse Oximetry 96 12/17/19 06:52 12/17/19 08:00 12/17/19 08:47 Temperature 36.5 C Pulse Rate 88 85 77 Respiratory Rate 20 20 Blood Pressure 134/57 L Pulse Oximetry 95 93 12/17/19 09:06 12/17/19 10:00 12/17/19 12:00 Temperature 36.7 C Pulse Rate 90 79 89 Respiratory Rate 20 20 Blood Pressure 147/55 H Pulse Oximetry 97 12/17/19 12:19 Temperature Pulse Rate 84 Respiratory Rate Blood Pressure Pulse Oximetry Intake/Output Intake/Output: Intake & Output 12/14/19 12/15/19 12/16/19 12/17/19 23:59 23:59 23:59 23:59 Intake Total 2116 1901 2505 2455 Output Total 2225 1250 1175 1225 Balance -165 366 5236 1230 Meds/Results Medications: Active Medications Generic Name Do
[2019-12-17 17:37] LABS: Glucose Point of Care 204 (65-105)
--- NOTE | 2019-12-17 18:58 | PM.PNPUL ---
Progress Note: A&P Assessment and Plan (1) Asthma: Qualifiers: Asthma severity: unspecified severity Asthma persistence: unspecified Asthma complication type: uncomplicated Qualified Code(s): J45.909 - Unspecified asthma, uncomplicated Code(s): J45.909 - Unspecified asthma, uncomplicated Status: Chronic Assessment and Plan: No current wheezing responding to bronchodilator therapy (2) Acute respiratory failure: Qualifiers: Respiratory failure complication: hypercapnia Qualified Code(s): J96.02 - Acute respiratory failure with hypercapnia Code(s): J96.00 - Acute respiratory failure, unspecified whether with hypoxia or hypercapnia Status: Acute Assessment and Plan: Resolved after episode of lethargy and hypercapnia, benefitted by BiPAP and diuresis, no longer needs the BiPAP and does not want to wear it Subjective Date/time seen: 12/17/19 18:58 This 79 yo female is seen in follow up for asthma, recent hypercapneic respiratory failure. She is improved after use of BiPAP Lasix for pulmonary edema and a madison stick mean for colonic decompression. She is alert not in distress Review of Systems Review of Systems: All systems reviewed & are unremarkable except as noted in HPI and below Exam Const: General: healthy appearing and no acute distress Orientation/consciousness: patient oriented x3 HENMT: Ears: hearing grossly normal bilaterally General nose exam: Normal external nose present Face and sinus: normal facial exam Mouth: Yes Normal oral and palatal mucosa present Throat: posterior oropharynx normal Neck: Neck: no lymphadenopathy and no JVD Chest: Chest palpation & inspection: normal inspection of the chest Resp: Effort & Inspection: normal respiratory effort Auscultation: diminished lung sounds Cardio: Palpation: normal PMI Rate: regular rate Rhythm: regular rhythm Peripheral pulses: Peripheral pulses 2+ throughout GI: Auscultation: abnormal bowel sounds (decreased) Skin: General skin exam: normal color Neuro: General: patient oriented x3 Extrem: General: normal to inspection and no pedal edema Psych: Appearance: grossly normal Mental Status: mental status grossly normal Speech and movement: Clear speech present Affect: normal affect Attitude: cooperative Objective Data Vital Signs Vital Signs: Vital Signs - 24 hr 12/16/19 20:00 12/16/19 20:10 12/16/19 20:20 Temperature 36.2 C L Pulse Rate 90 92 91 Respiratory Rate 24 H 20 20 Blood Pressure 148/53 H Pulse Oximetry 100 12/16/19 20:24 12/16/19 22:00 12/17/19 00:00 Temperature 36.5 C Pulse Rate 91 82 Respiratory Rate 20 Blood Pressure 155/66 H Pulse Oximetry 92 96 12/17/19 01:43 12/17/19 01:45 12/17/19 01:55 Temperature Pulse Rate 83 89 89 Respiratory Rate 20 20 Blood Pressure Pulse Oximetry 12/17/19 02:00 12/17/19 04:00 12/17/19 06:00 Temperature 36.0 C L Pulse Rate 77 86 86 Respiratory Rate 18 Blood Pressure 137/57 L Pulse Oximetry 96 12/17/19 06:52 12/17/19 08:00 12/17/19 08:47 Temperature 36.5 C Pulse Rate 88 85 77 Respiratory Rate 20 20 Blood Pressure 134/57 L Pulse Oximetry 95 93 12/17/19 09:06 12/17/19 10:00 12/17/19 12:00 Temperature 36.7 C Pulse Rate 90 79 89 Respiratory Rate 20 20 Blood Pressure 147/55 H Pulse Oximetry 97 12/17/19 12:19 12/17/19 14:00 12/17/19 14:20 Temperature Pulse Rate 84 98 82 Respiratory Rate 20 Blood Pressure Pulse Oximetry 12/17/19 14:30 12/17/19 16:00 12/17/19 18:00 Temperature 37.1 C Pulse Rate 88 96 84 Respiratory Rate 20 20 Blood Pressure 149/57 H Pulse Oximetry 98 12/17/19 18:27 Temperature Pulse Rate 88 Respiratory Rate Blood Pressure Pulse Oximetry Intake/Output Intake/Output: Intake & Output 12/14/19 12/15/19 12/16/19 12/17/19 23:59 23:59 23:59 23:59 Intake Total 2116 1901 2505 3155 Output Total 2225 1
[2019-12-17 21:42] LABS: Glucose Point of Care 205 (65-105)
[2019-12-17] MEDS: FIDAXOMICIN 200 MG TABLET PO (22:13)
[2019-12-18] VITALS (27 sets, daily range): BP systolic 132–167; BP diastolic 55–70; PULSE 74–97; RESP 18–24; TEMP 36.2–36.6; O2SAT 91–100
[2019-12-18] MEDS: BETAMETHASONE/CLOTRIMAZOLE CR 15 GM TUBE 1 APPLIC TOPICAL ×3 (00:26→20:31)
[2019-12-18] MEDS: METOPROLOL TARTRATE INJ 5 MG/5 ML VIAL IV PUSH ×5 (00:26→23:38)
[2019-12-18] MEDS: LEVOTHYROXINE SODIUM INJ 100 MCG/5 ML VIAL 56 MCG IV PUSH (05:02)
[2019-12-18 05:08] LABS: Hematocrit 27.4 % (37.0-47.0); Hemoglobin 8.4 g/dL (12.0-15.0); Mean Corpuscular HGB Conc 30.7 g/dl (32-36); Mean Corpuscular Hemoglobin 30.5 pg (26-34); Mean Corpuscular Volume 99.6 fl (80-100); Mean Platelet Volume 11.3 fl (7.4-10.4); Platelet Count Result 241 k/mm3 (150-375); Red Blood Count 2.75 M/mm3 (4.2-5.4)
[2019-12-18 05:23] LABS: Triglycerides 154 mg/dL (<150)
[2019-12-18 05:24] LABS: Alanine Aminotransferase 9 U/L (4-35); Albumin Level 2.4 g/dL (3.5-5.1); Alkaline Phosphatase 49 U/L (38-126); Aspartate Amino Transferase 15 U/L (14-36); Bilirubin,Total 0.2 mg/dL (0.2-1.3); Blood Urea Nitrogen 43 mg/dL (7-17); Calcium 8.1 mg/dL (8.4-10.2); Carbon Dioxide 30 mmol/L (22-30); Chloride 107 mmol/L (98-107); Estimated CRCL calculation 38 ml/min; Estimated Glomerular Filt Rate 36; Glucose 206 mg/dL (65-105); Magnesium 1.8 mg/dL (1.6-2.3); Phosphorus 4.2 mg/dL (2.5-4.5); Sodium 140 mmol/L (137-145)
[2019-12-18] MEDS: IPRATROPIUM BR 0.02% INH SOLN 0.5 MG/2.5 ML VIAL INHALATION ×2 (08:31→14:30)
[2019-12-18] MEDS: BUDESONIDE RESPULE NEB 0.5 MG/2 ML AMP INHALATION ×2 (08:31→21:36)
[2019-12-18] MEDS: DORNASE ALFA INH SOLN 1 MG/ML 2.5 ML AMP 2.5 MG INHALATION ×2 (08:31→21:36)
--- NOTE | 2019-12-18 09:03 | WPDGIPROGNO ---
Progress Note: A&P Additional Plan Patient alert. NG tube remains in place. No recent bowel movements reported. Patient denies pain. Physical exam reveals abdomen to be obese. Bowel sounds are absent. No organomegaly. Colon decompression tube remains in place as well as NG tube. Impression 1. [place] syndrome. Pseudo-obstruction of the colon. Etiology unclear but may be related electrolyte disturbance. Plan to avoid narcotics. Currently on trial of erythromycin. Reglan previously failed to improve her symptoms. Decompression tube placed by Dr. islas last week. Now with NG tube decompression as well. Plan to continue supportive care. Correct electrolytes. Continue trial of erythromycin. Supportive care for now. Dr. Bright returns in the morning. Subjective Date/time seen: 12/18/19 09:03 Objective Data Vital Signs Vital Signs: Vital Signs - 24 hr 12/17/19 09:06 12/17/19 10:00 12/17/19 12:00 Temperature 36.7 C Pulse Rate 90 79 89 Respiratory Rate 20 20 Blood Pressure 147/55 H Pulse Oximetry 97 12/17/19 12:19 12/17/19 14:00 12/17/19 14:20 Temperature Pulse Rate 84 98 82 Respiratory Rate 20 Blood Pressure Pulse Oximetry 12/17/19 14:30 12/17/19 16:00 12/17/19 18:00 Temperature 37.1 C Pulse Rate 88 96 84 Respiratory Rate 20 20 Blood Pressure 149/57 H Pulse Oximetry 98 12/17/19 18:27 12/17/19 20:00 12/17/19 20:19 Temperature 36.6 C Pulse Rate 88 80 84 Respiratory Rate 20 20 Blood Pressure 155/63 H Pulse Oximetry 97 12/17/19 20:20 12/17/19 20:45 12/17/19 22:00 Temperature Pulse Rate 89 85 Respiratory Rate 20 Blood Pressure Pulse Oximetry 97 12/18/19 00:00 12/18/19 00:26 12/18/19 02:00 Temperature 36.3 C L Pulse Rate 87 78 78 Respiratory Rate 20 Blood Pressure 167/70 H Pulse Oximetry 96 12/18/19 02:10 12/18/19 02:20 12/18/19 04:00 Temperature 36.3 C L Pulse Rate 86 84 81 Respiratory Rate 18 18 20 Blood Pressure 149/55 H Pulse Oximetry 96 12/18/19 05:19 12/18/19 05:49 12/18/19 08:25 Temperature Pulse Rate 89 86 88 Respiratory Rate 20 Blood Pressure Pulse Oximetry 12/18/19 08:38 12/18/19 08:39 Temperature Pulse Rate 87 Respiratory Rate 20 Blood Pressure Pulse Oximetry 96 Intake/Output Intake/Output: Intake & Output 12/15/19 12/16/19 12/17/19 12/18/19 23:59 23:59 23:59 23:59 Intake Total 1901 2505 3745 1750 Output Total 1250 1175 3625 1200 Balance 651 1330 120 550 Meds/Results Medications: Active Medications Generic Name Dose Route Start Last Admin Trade Name Freq PRN Reason Stop Dose Admin Budesonide 0.5 mg 12/12/19 20:00 12/18/19 08:31 Pulmicort Respule Neb INHALATION 0.5 mg Q12HRT IRIS Administration Clotrimazole 1 applic 12/15/19 09:30 12/18/19 00:26 Lotrisone Cream TOPICAL 1 applic Q12HR IRIS Administration Dextrose 12.5 gm 12/01/19 23:12 Dextrose 50% Syringe IV PUSH PRN PRN Hypoglycemia Protocol Dornase Yfn 2.5 mg 12/08/19 20:00 12/18/19 08:31 Pulmozyme INHALATION 2.5 mg Q12HRT IRIS Administration Enoxaparin Sodium 30 mg 12/07/19 09:00 12/17/19 09:29 Lovenox SUB-Q 30 mg DAILY IRIS Administration Fidaxomicin 200 mg 12/15/19 09:00 12/17/19 22:13 Dificid PO 200 mg Q12HR IRIS Administration Glucagon 1 mg 12/01/19 23:12 Glucagon For Inj IM PRN PRN Hypoglycemia Protocol Glucose 15 gm 12/01/19 23:12 Glutose 15 PO PRN PRN Hypoglycemia Protocol Hydralazine HCl 10 mg 12/15/19 13:13 Apresoline Hcl Inj IV PUSH Q4H PRN Blood Pressure - High Dextrose 1,000 mls @ 100 mls/hr 12/01/19 23:12 Dextrose 5% 1,000 Ml IVPB PRN PRN Hypoglycemia Protocol Dextrose 1,000 mls @ 50 mls/hr 12/07/19 07:13 Dextrose 10% IV CONT .Q20H PRN if PN is interrupted Multivitamins 5 ml/ Amino 2,005
[2019-12-18 10:24] LABS: Glucose Point of Care 147 (65-105)
[2019-12-18] MEDS: ENOXAPARIN 30 MG/0.3 ML SYRINGE SUB-Q (10:26)
[2019-12-18] MEDS: INSULIN DETEMIR 100 UNITS/ML 18 UNITS SUB-Q ×2 (10:26→20:31)
[2019-12-18] MEDS: FAT EMULSIONS IV 20% 250 ML 20.8 ML IVPB (10:26)
[2019-12-18] MEDS: PANTOPRAZOLE SODIUM IV 40 MG VIAL IV PUSH ×2 (10:26→20:31)
--- NOTE | 2019-12-18 12:37 | PM.PNGS ---
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 This may be due to the ice chips she has been taking but will put NG to gravity today and see how she handles not having it to suction. Repeat x-ray again tomorrow. If remains improved and clinically the same, will DC NG and start oral intake. (2) Protein-calorie malnutrition, moderate: Code(s): E44.0 - Moderate protein-calorie malnutrition Status: Acute Assessment and Plan: Continue TPN for now. (3) Acute respiratory failure: Code(s): J96.00 - Acute respiratory failure, unspecified whether with hypoxia or hypercapnia Status: Acute Assessment and Plan: Much improved after diuresis. Subjective Subjective Date/Time Seen: 12/18/19 12:37 No new complaints or problems. No abdominal pain. Taking a lot of ice chips. Review of Systems Review of Systems: All systems reviewed & are unremarkable except as noted in HPI and below (HPI) Exam Const: General: cooperative, comfortable, no acute distress and tired appearing Nutritional Appearance: obese Orientation/consciousness: patient oriented x3 GI: Inspection: distended, incision (Healing well) and obesity GI Palp: Yes Soft to palpation (Much less distended than before) and No Tenderness to palpation present (GI) Percussion: Yes dullness to percussion Auscultation: Hypoactive bowel sounds present Objective Data Vital Signs Vital Signs: Vital Signs - 24 hr 12/17/19 14:00 12/17/19 14:20 12/17/19 14:30 Temperature Pulse Rate 98 82 88 Respiratory Rate 20 20 Blood Pressure Pulse Oximetry 12/17/19 16:00 12/17/19 18:00 12/17/19 18:27 Temperature 37.1 C Pulse Rate 96 84 88 Respiratory Rate 20 Blood Pressure 149/57 H Pulse Oximetry 98 12/17/19 20:00 12/17/19 20:19 12/17/19 20:20 Temperature 36.6 C Pulse Rate 80 84 Respiratory Rate 20 20 Blood Pressure 155/63 H Pulse Oximetry 97 97 12/17/19 20:45 12/17/19 22:00 12/18/19 00:00 Temperature 36.3 C L Pulse Rate 89 85 87 Respiratory Rate 20 20 Blood Pressure 167/70 H Pulse Oximetry 96 12/18/19 00:26 12/18/19 02:00 12/18/19 02:10 Temperature Pulse Rate 78 78 86 Respiratory Rate 18 Blood Pressure Pulse Oximetry 12/18/19 02:20 12/18/19 04:00 12/18/19 05:19 Temperature 36.3 C L Pulse Rate 84 81 89 Respiratory Rate 18 20 Blood Pressure 149/55 H Pulse Oximetry 96 12/18/19 05:49 12/18/19 08:00 12/18/19 08:25 Temperature 36.3 C L Pulse Rate 86 83 88 Respiratory Rate 20 20 Blood Pressure 137/68 Pulse Oximetry 100 12/18/19 08:38 12/18/19 08:39 12/18/19 10:00 Temperature Pulse Rate 87 78 Respiratory Rate 20 Blood Pressure Pulse Oximetry 96 12/18/19 11:36 12/18/19 12:00 Temperature Pulse Rate 97 79 Respiratory Rate Blood Pressure Pulse Oximetry Intake/Output Intake/Output: Intake & Output 12/15/19 12/16/19 12/17/19 12/18/19 23:59 23:59 23:59 23:59 Intake Total 1901 2505 3745 2000 Output Total 1250 1175 3625 1200 Balance 651 1330 120 800 Meds/Results Medications: Active Medications Generic Name Dose Route Start Last Admin Trade Name Freq PRN Reason Stop Dose Admin Budesonide 0.5 mg 12/12/19 20:00 12/18/19 08:31 Pulmicort Respule Neb INHALATION 0.5 mg Q12HRT IRIS Administration Clotrimazole 1 applic 12/15/19 09:30 12/18/19 10:26 Lotrisone Cream TOPICAL 1 applic Q12HR IRIS Administration Dextrose 12.5 gm 12/01/19 23:12 Dextrose 50% Syringe IV PUSH PRN PRN Hypoglycemia Protocol Dornase Yfn 2.5 mg 12/08/19 20:00 12/18/19 08:31 Pulmozyme INHALATION 2.5 mg Q12HRT IRIS Administration Enoxaparin Sodium 30 mg 12/07/19 09:00
[2019-12-18 12:45] LABS: Glucose Point of Care 191 (65-105)
--- NOTE | 2019-12-18 13:24 | PM.IMPN ---
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 Lucas. 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 The pt does have a hx of colonic ileus in 2017 treated with decompressive colonoscopy. SBS 12/11 showing mild SB dilation but severe ileus. She has relatively poor output after the Neostigmine with repeat dose not helpful. Reglan stopped and Erythromycin started 12/13/19. Miralax also started. Decompression by colonoscopy on 12/16/19 and has rectal tube to suction. KUB today showing improved bowel gas pattern. Appreciate GI and General surgery input. Possible diet tomorrow if she tolerates the NGT to gravity. (2) Acute respiratory failure: Code(s): J96.00 - Acute respiratory failure, unspecified whether with hypoxia or hypercapnia Status: Acute Assessment and Plan: RN called after pt developed dyspnea following small bowel follow-through on 12/12/2019. CXR showing congestive changes and 1 dose of IV lasix 40mg was given with good urine output. On 12/12, patient was somnolent and ABG showing 7.19/75/76 so BiPAP started. ABG on 12/14 showing 7.41/48/78. Patient was refusing the BiPAP so this was stopped. CXR showing CMG and pulmonary edema on 12/17/19 and Lasix given with good UOP. Repeat CXR today reviewed and shows improvement. Continue Xopenex, Pulmozyme and Pulmicort. (3) Asthma: Code(s): J45.909 - Unspecified asthma, uncomplicated Status: Chronic Assessment and Plan: As above. (4) Diarrhea: Qualifiers: Diarrhea type: unspecified type Qualified Code(s): R19.7 - Diarrhea, unspecified Code(s): R19.7 - Diarrhea, unspecified Status: Acute Assessment and Plan: The patient had diarrhea initially after a two week course of levaquin. She completed an empiric course of vancomycin for possible CDiff. She is NPO and is on parenteral nutrition. No stool testing has been performed. Will continue empiric Fidoxamicin. (5) Acute on chronic renal failure: Qualifiers: Acute renal failure type: unspecified Chronic kidney disease stage: stage 3 (moderate) Qualified Code(s): N17.9 - Acute kidney failure, unspecified; N18.3 - Chronic kidney disease, stage 3 (moderate) Code(s): N17.9 - Acute kidney failure, unspecified; N18.9 - Chronic kidney disease, unspecified Status: Acute Assessment and Plan: Baseline creatinine 1.4. Cr increased 2.6 before trending back down. Currently Cr 1.4. Excellent urine output yesterday from the Lasix. Continue to monitor. (6) Benign essential hypertension: Code(s): I10 - Essential (primary) hypertension Status: Chronic Assessment and Plan: Blood pressure reviewed on 12/18/2019. Blood pressure more elevated overnight but better now. Continue Lopressor. Hydralazine IV available for severe hypertension. (7) DM type 2 (diabetes mellitus, type 2): Code(s): E11.9 - Type 2 diabetes mellitus without complications Status: Chronic Assessment and Plan: A1c 5.8 in Oct 2019. Glucose reviewed on 12/18/19. Glucose higher now into the low 200's since decreasing Levemir. Will increase levemir slightly. Continue Accu-Cheks with sliding scale coverage. Continue hypoglycemia protocol. Glucose should improve off TPN. (8) Hypothyroidism (acquired): Code(s): E03.9 - Hypothyroidism, unspecified Status: Acute Assessment and Plan: Stable. Continue IV levothyroxine. Change to oral route when eating normally. (9) Tachycardia: Code(s): R00.0 - Tachycardia, unspecified Status: Acute Assessment and Plan: HR much improved. Tachycardia is likely due to acute illness. Heart rate well controlled with IV metoprolol. Continue to monitor.
[2019-12-18 16:42] LABS: Glucose Point of Care 194 (65-105)
[2019-12-18 20:25] LABS: Glucose Point of Care 180 (65-105)
[2019-12-19] VITALS (28 sets, daily range): BP systolic 130–172; BP diastolic 53–89; PULSE 68–98; RESP 16–20; TEMP 36–36.8; O2SAT 86–100
[2019-12-19] MEDS: METOPROLOL TARTRATE INJ 5 MG/5 ML VIAL IV PUSH ×4 (05:44→23:17)
[2019-12-19] MEDS: LEVOTHYROXINE SODIUM INJ 100 MCG/5 ML VIAL 56 MCG IV PUSH (05:45)
[2019-12-19 05:54] LABS: Hematocrit 26.9 % (37.0-47.0); Hemoglobin 7.9 g/dL (12.0-15.0); Mean Corpuscular HGB Conc 29.4 g/dl (32-36); Mean Corpuscular Hemoglobin 30.9 pg (26-34); Mean Corpuscular Volume 105.1 fl (80-100); Mean Platelet Volume 11.3 fl (7.4-10.4); Platelet Count Result 278 k/mm3 (150-375); Red Blood Count 2.56 M/mm3 (4.2-5.4); Red Cell Distribution Width 14.6 % (11.5-14.5); White Blood Count 10.5 K/mm3 (4.5-10.0)
[2019-12-19 07:23] LABS: Alanine Aminotransferase 11 U/L (4-35); Albumin Level 2.5 g/dL (3.5-5.1); Alkaline Phosphatase 51 U/L (38-126); Aspartate Amino Transferase 19 U/L (14-36); Bilirubin,Total 0.1 mg/dL (0.2-1.3); Blood Urea Nitrogen 38 mg/dL (7-17); Calcium 7.7 mg/dL (8.4-10.2); Carbon Dioxide 30 mmol/L (22-30); Chloride 106 mmol/L (98-107); Estimated CRCL calculation 44 ml/min; Estimated Glomerular Filt Rate 43; Glucose 160 mg/dL (65-105); Magnesium 1.6 mg/dL (1.6-2.3); Phosphorus 3.8 mg/dL (2.5-4.5); Potassium 3.5 mmol/L (3.4-5.0); Sodium 140 mmol/L (137-145)
[2019-12-19 07:37] LABS: Transferrin 171 mg/dL (206-381)
--- NOTE | 2019-12-19 07:49 | WPDGIPROGNO ---
Subjective Date/time seen: 12/19/19 07:49 This very pleasant lady's feeling better. Passing flatus. KUB is much improved. Overall she is feeling better. She is breathing better. Heart rate rhythm regular. Lungs decreased breath sounds in the bases. Abdomen is soft, less distended than Thursday PEG. Bowel sounds were present. Impression: Persistent ileus/pseudo-obstruction. Presently on treatment C diff. Leukocytosis. May be secondary to above. Increasing shortness of breath. This may be secondary underlying atelectasis/COPD. Malnutrition. Recent pneumonia. History of adenomatous colon polyps. Last colonoscopy was September of 2018. Diabetes mellitus. Hypertension. Hyperlipidemia. Chronic kidney disease. COPD. Hypothyroidism. Rheumatoid arthritis. DVT by history. Obesity. Recommendation: Trial of clear liquids. Advance diet as tolerated. Please call if any further recommendations required. Increase activity. If tolerating clear liquids may discontinue rectal tube. Objective Data Vital Signs Vital Signs: Vital Signs - 24 hr 12/18/19 08:00 12/18/19 08:25 12/18/19 08:38 Temperature 36.3 C L Pulse Rate 83 88 Respiratory Rate 20 20 Blood Pressure 137/68 Pulse Oximetry 100 96 12/18/19 08:39 12/18/19 09:15 12/18/19 10:00 Temperature Pulse Rate 87 78 Respiratory Rate 20 Blood Pressure Pulse Oximetry 95 12/18/19 11:36 12/18/19 12:00 12/18/19 14:00 Temperature 36.3 C L Pulse Rate 97 83 81 Respiratory Rate 24 H Blood Pressure 132/62 Pulse Oximetry 93 12/18/19 14:25 12/18/19 14:35 12/18/19 16:00 Temperature 36.6 C Pulse Rate 85 88 91 Respiratory Rate 20 20 24 H Blood Pressure 152/69 H Pulse Oximetry 92 12/18/19 17:28 12/18/19 17:33 12/18/19 20:00 Temperature 36.2 C L Pulse Rate 78 84 84 Respiratory Rate 22 H Blood Pressure 149/64 H Pulse Oximetry 92 12/18/19 21:36 12/18/19 21:49 12/18/19 22:00 Temperature Pulse Rate 82 84 86 Respiratory Rate 20 22 H Blood Pressure Pulse Oximetry 91 12/18/19 23:38 12/19/19 00:00 03/23/20 02:00 Temperature 36.0 C L Pulse Rate 88 88 88 Respiratory Rate 20 Blood Pressure 159/89 H Pulse Oximetry 90 12/19/19 02:56 12/19/19 03:06 12/19/19 04:00 Temperature 36.4 C Pulse Rate 88 91 96 Respiratory Rate 20 20 16 Blood Pressure 156/62 H Pulse Oximetry 86 L 96 12/19/19 05:44 12/19/19 06:00 Temperature Pulse Rate 94 96 Respiratory Rate Blood Pressure Pulse Oximetry Intake/Output Intake/Output: Intake & Output 12/16/19 12/17/19 12/18/19 12/19/19 23:59 23:59 23:59 23:59 Intake Total 2505 3745 3280 750 Output Total 1175 3625 2175 1150 Balance 3720 639 4819 -400 Meds/Results Medications: Active Medications Generic Name Dose Route Start Last Admin Trade Name Freq PRN Reason Stop Dose Admin Budesonide 0.5 mg 12/12/19 20:00 12/18/19 21:36 Pulmicort Respule Neb INHALATION 0.5 mg Q12HRT IRIS Administration Clotrimazole 1 applic 12/15/19 09:30 12/18/19 20:31 Lotrisone Cream TOPICAL 1 applic Q12HR IRIS Administration Dextrose 12.5 gm 12/01/19 23:12 Dextrose 50% Syringe IV PUSH PRN PRN Hypoglycemia Protocol Dornase Yfn 2.5 mg 12/08/19 20:00 12/18/19 21:36 Pulmozyme INHALATION 2.5 mg Q12HRT IRIS Administration Enoxaparin Sodium 30 mg 12/07/19 09:00 12/18/19 10:26 Lovenox SUB-Q 30 mg DAILY IRIS Administration Fidaxomicin 200 mg 12/15/19 09:00 12/18/19 20:17 Dificid PO Not Given Q12HR IRIS Glucagon 1 mg 12/01/19 23:12 Glucagon For Inj IM PRN PRN Hypoglycemia Protocol Glucose 15 gm 12/01/19 23:12 Glutose 15 PO PRN PRN Hypoglycemia Protocol Hydralazine HCl 10 mg 12/15/19 13:13 Apresoline Hcl Inj IV PUSH Q4H PRN Blood Pressure - High Dextrose 1,000 mls @ 100 mls/hr 12/01/19 23:12 Dextrose 5% 1,00
--- NOTE | 2019-12-19 07:53 | PM.PNGS ---
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 Took over a 1000 cc of water and tolerated that well. Will DC NG tube and start clear liquids. Abdominal incision continues to heal well. Management of rectal decompression tube per GI (2) Protein-calorie malnutrition, moderate: Code(s): E44.0 - Moderate protein-calorie malnutrition Status: Acute Assessment and Plan: continue TPN for now. Hopefully can DC in another day or 2 (3) Acute respiratory failure: Code(s): J96.00 - Acute respiratory failure, unspecified whether with hypoxia or hypercapnia Status: Acute Assessment and Plan: much improved after diuresis. Subjective Subjective Date/Time Seen: 12/19/19 07:53 Patient reports: no new complaints and feels better Interval history: tolerated NG tube to gravity all night. No recurrent nausea or abdominal pain. Took in many ice chips. Over one thousand cc taken in orally since yesterday. Review of Systems Review of Systems: All systems reviewed & are unremarkable except as noted in HPI and below Constitutional: Constitutional: Denies headache(s) ENT: Denies headache(s) Cardiovascular: Cardiovascular: Denies chest pain and Denies dyspnea Respiratory: Respiratory: Denies cough and Denies dyspnea Gastrointestinal: Gastrointestinal: Reports as per HPI Neurologic: Denies confusion and Denies headache(s) Psychiatric: Psychiatric: Denies confusion Exam Const: General: comfortable and no acute distress; No confusion Orientation/consciousness: patient oriented x3 and No confusion Resp: Effort & Inspection: normal respiratory effort Auscultation: clear to auscultation bilaterally Cardio: Rate: regular rate Rhythm: regular rhythm GI: Inspection: incision ( Continues to heal well) and obesity GI Palp: Yes Soft to palpation, No Tenderness to palpation present (GI), No Guarding due to palpation present (GI) and No Rebound tenderness present Auscultation: normal bowel sounds Neuro: General: patient oriented x3, no focal motor deficits and No confusion Extrem: General: no calf tenderness and no edema Psych: Affect: normal affect Insight: Good insight present (Psych) Judgement: Good judgement present (Psych) Objective Data Vital Signs Vital Signs: Vital Signs - 24 hr 12/18/19 08:00 12/18/19 08:25 12/18/19 08:38 Temperature 36.3 C L Pulse Rate 83 88 Respiratory Rate 20 20 Blood Pressure 137/68 Pulse Oximetry 100 96 12/18/19 08:39 12/18/19 09:15 12/18/19 10:00 Temperature Pulse Rate 87 78 Respiratory Rate 20 Blood Pressure Pulse Oximetry 95 12/18/19 11:36 12/18/19 12:00 12/18/19 14:00 Temperature 36.3 C L Pulse Rate 97 83 81 Respiratory Rate 24 H Blood Pressure 132/62 Pulse Oximetry 93 12/18/19 14:25 12/18/19 14:35 12/18/19 16:00 Temperature 36.6 C Pulse Rate 85 88 91 Respiratory Rate 20 20 24 H Blood Pressure 152/69 H Pulse Oximetry 92 12/18/19 17:28 12/18/19 17:33 12/18/19 20:00 Temperature 36.2 C L Pulse Rate 78 84 84 Respiratory Rate 22 H Blood Pressure 149/64 H Pulse Oximetry 92 12/18/19 21:36 12/18/19 21:49 12/18/19 22:00 Temperature Pulse Rate 82 84 86 Respiratory Rate 20 22 H Blood Pressure Pulse Oximetry 91 12/18/19 23:38 12/19/19 00:00 12/19/19 02:00 Temperature 36.0 C L Pulse Rate 88 88 88 Respiratory Rate 20 Blood Pressure 159/89 H Pulse Oximetry 90 12/19/19 02:56 12/19/19 03:06 12/19/19 04:00 Temperature 36.4 C Pulse Rate 88 91 96 Respiratory Rate 20 20 16 Blood Pressure 156/62 H Pulse Oximetry 86 L 96 12/19/19 05:44 12/19/19 06:00 Temperature Pulse Rate 94 96 Respiratory Rate Blood Pressure Pulse Oximetry Intake/Output Intake/Output: Int
[2019-12-19 07:57] LABS: Glucose Point of Care 156 (65-105)
[2019-12-19] MEDS: BUDESONIDE RESPULE NEB 0.5 MG/2 ML AMP INHALATION ×2 (08:17→21:01)
[2019-12-19] MEDS: DORNASE ALFA INH SOLN 1 MG/ML 2.5 ML AMP 2.5 MG INHALATION ×2 (08:17→21:01)
--- NOTE | 2019-12-19 09:54 | PM.IMPN ---
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 Lucas. 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 The pt does have a hx of colonic ileus in 2017 treated with decompressive colonoscopy. SBS 12/11 showing mild SB dilation but severe ileus. She has relatively poor output after the Neostigmine with a repeat dose not helpful. Reglan stopped and Erythromycin started 12/13/19. Miralax also started. Decompression by colonoscopy on 12/16/19 and has rectal tube to suction. KUB today showing moderate gas in the small bowel and colon c/w ileus. Appreciate GI and General surgery input. NG tube out today and clear liquids have been ordered. Monitor closely. Contineu PT/OT. (2) Acute respiratory failure: Qualifiers: Respiratory failure complication: hypoxia and hypercapnia Qualified Code(s): J96.01 - Acute respiratory failure with hypoxia; J96.02 - Acute respiratory failure with hypercapnia Code(s): J96.00 - Acute respiratory failure, unspecified whether with hypoxia or hypercapnia Status: Acute Assessment and Plan: RN called after pt developed dyspnea following small bowel follow-through on 12/12/2019. CXR showing congestive changes and 1 dose of IV lasix 40mg was given with good urine output. On 12/12, patient was somnolent and ABG showing 7.19/75/76 so BiPAP started. ABG on 12/14 showing 7.41/48/78. Patient has since been refusing the BiPAP so this was stopped. CXR showing CMG and pulmonary edema on 12/17/19 and Lasix given with good UOP. Repeat CXR today reviewed personally and showing Left lower lung with pleural effusion with atelecatasis vs PNA. Patietn still with cough but WBC trending down and no fever (patient is still on Erythromycin). Will hold additional abx at this time. Continue Xopenex, Pulmozyme and Pulmicort. Repeat lasix. (3) Asthma: Qualifiers: Asthma complication type: uncomplicated Asthma persistence: unspecified Asthma severity: unspecified severity Qualified Code(s): J45.909 - Unspecified asthma, uncomplicated Code(s): J45.909 - Unspecified asthma, uncomplicated Status: Chronic Assessment and Plan: As above. (4) Diarrhea: Qualifiers: Diarrhea type: unspecified type Qualified Code(s): R19.7 - Diarrhea, unspecified Code(s): R19.7 - Diarrhea, unspecified Status: Acute Assessment and Plan: The patient had diarrhea initially after a two week course of levaquin. She completed an empiric course of oral vancomycin for possible CDiff. She is NPO and is on parenteral nutrition. No stool testing has been performed. Will continue empiric Fidoxamicin. (5) Acute on chronic renal failure: Qualifiers: Acute renal failure type: unspecified Chronic kidney disease stage: stage 3 (moderate) Qualified Code(s): N17.9 - Acute kidney failure, unspecified; N18.3 - Chronic kidney disease, stage 3 (moderate) Code(s): N17.9 - Acute kidney failure, unspecified; N18.9 - Chronic kidney disease, unspecified Status: Acute Assessment and Plan: Baseline creatinine 1.4. Cr increased 2.6 before trending back down. Currently Cr 1.2. Excellent urine output from the Lasix the other day. Continue to monitor. (6) Benign essential hypertension: Code(s): I10 - Essential (primary) hypertension Status: Chronic Assessment and Plan: Blood pressure reviewed on 12/19/2019. Blood pressure elevated at times. Continue IV Lopressor. Hydralazine IV available for severe hypertension. Home lisinopril on hold. (7) DM type 2 (diabetes mellitus, type 2): Qualifiers: Chronic kidney disease stage: stage 3 (moderate) Diabetes mellitus complication detail: with chronic kidney disease Diabetes
[2019-12-19] MEDS: FIDAXOMICIN 200 MG TABLET PO ×2 (10:07→20:01)
[2019-12-19] MEDS: ENOXAPARIN 30 MG/0.3 ML SYRINGE SUB-Q (10:07)
[2019-12-19] MEDS: PANTOPRAZOLE SODIUM IV 40 MG VIAL IV PUSH ×2 (10:08→20:01)
[2019-12-19] MEDS: FAT EMULSIONS IV 20% 250 ML 21 ML IVPB (10:09)
[2019-12-19] MEDS: INSULIN DETEMIR 100 UNITS/ML 18 UNITS SUB-Q ×2 (10:15→20:07)
[2019-12-19] MEDS: BETAMETHASONE/CLOTRIMAZOLE CR 15 GM TUBE 1 APPLIC TOPICAL ×2 (10:16→20:07)
[2019-12-19 10:49] LABS: INR 0.9; Prothrombin Time 12.1 Seconds (11.1-14.7)
[2019-12-19 10:50] LABS: Partial Thromboplastin Time 26.3 SECONDS (22.3-36.8)
[2019-12-19 11:49] LABS: Glucose Point of Care 149 (65-105)
[2019-12-19] MEDS: FUROSEMIDE INJ 40 MG/4 ML VIAL IV PUSH (13:04)
--- NOTE | 2019-12-19 14:25 | PCOTNOTE ---
Attempted to see pt this afternoon. Pt refused stated that she was just way too tired.
[2019-12-19 16:45] LABS: Glucose Point of Care 187 (65-105)
[2019-12-19] MEDS: MELATONIN 3 MG TABLET PO (20:01)
[2019-12-19 20:33] LABS: Glucose Point of Care 185 (65-105)
[2019-12-20] VITALS (25 sets, daily range): BP systolic 134–145; BP diastolic 47–64; PULSE 70–99; RESP 16–22; TEMP 36.4–36.9; O2SAT 93–96
[2019-12-20 04:32] LABS: Hematocrit 28.7 % (37.0-47.0); Hemoglobin 7.6 g/dL (12.0-15.0); Mean Corpuscular HGB Conc 26.5 g/dl (32-36); Mean Corpuscular Hemoglobin 30.9 pg (26-34); Mean Corpuscular Volume 116.7 fl (80-100); Mean Platelet Volume 11.4 fl (7.4-10.4); Platelet Count Result 277 k/mm3 (150-375); Red Blood Count 2.46 M/mm3 (4.2-5.4); Red Cell Distribution Width 14.6 % (11.5-14.5); White Blood Count 9.7 K/mm3 (4.5-10.0)
[2019-12-20] MEDS: METOPROLOL TARTRATE INJ 5 MG/5 ML VIAL IV PUSH ×4 (05:46→23:15)
[2019-12-20] MEDS: LEVOTHYROXINE SODIUM INJ 100 MCG/5 ML VIAL 56 MCG IV PUSH (05:47)
[2019-12-20 05:53] LABS: Alanine Aminotransferase 12 U/L (4-35); Albumin Level 2.5 g/dL (3.5-5.1); Alkaline Phosphatase 55 U/L (38-126); Aspartate Amino Transferase 19 U/L (14-36); Bilirubin,Total 0.1 mg/dL (0.2-1.3); Blood Urea Nitrogen 37 mg/dL (7-17); Calcium 7.6 mg/dL (8.4-10.2); Carbon Dioxide 29 mmol/L (22-30); Chloride 101 mmol/L (98-107); Estimated CRCL calculation 41 ml/min; Estimated Glomerular Filt Rate 40; Glucose 177 mg/dL (65-105); Potassium 3.2 mmol/L (3.4-5.0); Sodium 135 mmol/L (137-145)
[2019-12-20 07:49] LABS: Glucose Point of Care 170 (65-105)
[2019-12-20] MEDS: DORNASE ALFA INH SOLN 1 MG/ML 2.5 ML AMP 2.5 MG INHALATION ×2 (09:21→19:39)
[2019-12-20] MEDS: BUDESONIDE RESPULE NEB 0.5 MG/2 ML AMP INHALATION ×2 (09:22→19:39)
[2019-12-20] MEDS: FAT EMULSIONS IV 20% 250 ML 21 ML IVPB (09:54)
[2019-12-20] MEDS: ENOXAPARIN 30 MG/0.3 ML SYRINGE SUB-Q (09:55)
[2019-12-20] MEDS: BETAMETHASONE/CLOTRIMAZOLE CR 15 GM TUBE 1 APPLIC TOPICAL ×2 (09:55→20:43)
[2019-12-20] MEDS: PANTOPRAZOLE SODIUM IV 40 MG VIAL IV PUSH (09:56)
[2019-12-20] MEDS: FIDAXOMICIN 200 MG TABLET PO ×2 (09:56→20:44)
[2019-12-20 09:59] LABS: Triglycerides 198 mg/dL (<150)
[2019-12-20] MEDS: INSULIN DETEMIR 100 UNITS/ML 18 UNITS SUB-Q ×2 (10:04→20:46)
--- NOTE | 2019-12-20 11:08 | PM.PNGS ---
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 Will advance to soft diet. Encourage patient to get out of bed today. Rectal tube management per GI. White count now down to normal. (2) Protein-calorie malnutrition, moderate: Code(s): E44.0 - Moderate protein-calorie malnutrition Status: Acute Assessment and Plan: continue TPN 1 more day but probably tomorrow can be discontinued. Continue to supplement low potassium. (3) Acute respiratory failure: Qualifiers: Respiratory failure complication: hypoxia and hypercapnia Qualified Code(s): J96.01 - Acute respiratory failure with hypoxia; J96.02 - Acute respiratory failure with hypercapnia Code(s): J96.00 - Acute respiratory failure, unspecified whether with hypoxia or hypercapnia Status: Acute Assessment and Plan: Improved. Subjective Subjective Date/Time Seen: 12/20/19 11:08 no complaints. No abdominal pain. Tolerated liquids well. Review of Systems Review of Systems: All systems reviewed & are unremarkable except as noted in HPI and below Constitutional: Constitutional: Denies headache(s) ENT: Denies headache(s) Cardiovascular: Cardiovascular: Denies chest pain and Denies dyspnea Respiratory: Respiratory: Denies cough and Denies dyspnea Gastrointestinal: Gastrointestinal: Reports as per HPI Neurologic: Denies confusion and Denies headache(s) Psychiatric: Psychiatric: Denies confusion Exam Const: General: comfortable and no acute distress; No confusion Orientation/consciousness: patient oriented x3 and No confusion GI: GI Palp: Yes Soft to palpation, No Tenderness to palpation present (GI), No Guarding due to palpation present (GI) and No Rebound tenderness present Auscultation: normal bowel sounds Neuro: General: patient oriented x3, no focal motor deficits and No confusion Extrem: General: no calf tenderness and no edema Psych: Affect: normal affect Insight: Good insight present (Psych) Judgement: Good judgement present (Psych) Objective Data Vital Signs Vital Signs: Vital Signs - 24 hr 12/19/19 11:56 12/19/19 12:00 12/19/19 13:07 Temperature 36.6 C Pulse Rate 87 81 85 Respiratory Rate 20 Blood Pressure 172/70 H Pulse Oximetry 100 12/19/19 14:00 12/19/19 14:16 12/19/19 14:30 Temperature Pulse Rate 84 85 89 Respiratory Rate 20 20 Blood Pressure Pulse Oximetry 12/19/19 16:00 12/19/19 18:00 12/19/19 18:08 Temperature 36.6 C Pulse Rate 80 75 95 Respiratory Rate 20 Blood Pressure 139/69 Pulse Oximetry 97 12/19/19 19:31 12/19/19 20:00 12/19/19 21:02 Temperature 36.7 C Pulse Rate 68 84 83 Respiratory Rate 18 20 Blood Pressure 136/65 Pulse Oximetry 97 12/19/19 21:03 12/19/19 21:13 12/19/19 22:00 Temperature Pulse Rate 87 82 Respiratory Rate 20 Blood Pressure Pulse Oximetry 92 12/19/19 23:17 12/19/19 23:42 12/20/19 00:00 Temperature 36.6 C Pulse Rate 79 84 84 Respiratory Rate 20 Blood Pressure 130/53 L Pulse Oximetry 94 12/20/19 02:00 12/20/19 02:23 12/20/19 02:33 Temperature Pulse Rate 78 80 82 Respiratory Rate 20 20 Blood Pressure Pulse Oximetry 12/20/19 04:00 12/20/19 05:46 12/20/19 06:00 Temperature 36.7 C Pulse Rate 89 89 74 Respiratory Rate 20 Blood Pressure 134/47 L Pulse Oximetry 96 12/20/19 08:20 12/20/19 09:22 12/20/19 09:26 Temperature 36.4 C L Pulse Rate 79 84 Respiratory Rate 22 H 20 Blood Pressure 138/54 L Pulse Oximetry 94 93 12/20/19 09:29 Temperature Pulse Rate 82 Respiratory Rate 20 Blood Pressure Pulse Oximetry Intake/Output Intake/Output: Intake & Output 12/17/19 12/18/19 12/19/19 12/20/19 23:59 23:59 23:59 23:59 Intake Total 9278 3278 1
[2019-12-20 12:29] LABS: Glucose Point of Care 203 (65-105)
[2019-12-20] MEDS: INSULIN ASPART (*BKC) 100 UNITS/ML SUB-Q ×2 (12:59→17:45)
--- NOTE | 2019-12-20 13:28 | PCDIET ---
Nutrition Follow-Up Complete: Nutrition Diagnosis: Inadequate oral intake related to diarrhea as evidenced by poor intake reported and weight loss of 6 pounds in 1 week. Nutrition Goal: Adequate intake of at least 75% of meals/supplements Goal in progress. Patient tolerated liquid diet with subsequent advancement to soft and bite size diet. Continues on Clinimix at 50mL/hr with 250mL 20% lipids daily. Last recorded weight is 115.7 kg which is increased from last review. I/O positive since last review. Bowel Motility: Rectal tube to suction; + output. Labs Reviewed: Glu (203), BUN (37), Cr (1.3), K (3.2), Na (135), TG (198), Alb (2.5) Meds Noted: Erythromycin, Novolog, Levemir, KCl Additional Notes: Agree with diet as tolerated. Agree to continue TPN at this time. Will continue to monitor with same goal of intakes >75%. Nutrition Monitoring and Evaluation: Follow up every 3 days.
[2019-12-20] MEDS: POTASSIUM CHLORIDE 20 MEQ TABLET 40 MEQ PO (14:03)
--- NOTE | 2019-12-20 15:25 | PC.NURSE ---
This patient, Cristina Bravo, was received from IMU on 12/20/19 at 1525. Personal belongings list checked and signed. Patient/family oriented to unit policies and routines. Report received from MELISA aT.
--- NOTE | 2019-12-20 17:07 | PM.IMPN ---
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 Lucas. 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 The pt does have a hx of colonic ileus in 2017 treated with decompressive colonoscopy. SBS 12/11 showing mild SB dilation but severe ileus. She has relatively poor output after the Neostigmine with a repeat dose not helpful. Reglan stopped and Erythromycin started 12/13/19. Miralax also started. Decompression by colonoscopy on 12/16/19 and has rectal tube to suction. KUB on 12/18 showed moderate gas in the small bowel and colon c/w ileus. Appreciate GI and General surgery input. NG tube out on 12/18 and clear liquids have been ordered. Patient seen by surgery team today started on a soft diet, monitor closely. Contineu PT/OT. (2) Acute respiratory failure: Qualifiers: Respiratory failure complication: hypoxia and hypercapnia Qualified Code(s): J96.01 - Acute respiratory failure with hypoxia; J96.02 - Acute respiratory failure with hypercapnia Code(s): J96.00 - Acute respiratory failure, unspecified whether with hypoxia or hypercapnia Status: Acute Assessment and Plan: RN called after pt developed dyspnea following small bowel follow-through on 12/12/2019. CXR showing congestive changes and 1 dose of IV lasix 40mg was given with good urine output. On 12/12, patient was somnolent and ABG showing 7.19/75/76 so BiPAP started. ABG on 12/14 showing 7.41/48/78. Patient has since been refusing the BiPAP so this was stopped. CXR showing CMG and pulmonary edema on 12/17/19 and Lasix given with good UOP. Repeat CXR 12/18 showed Left lower lung with pleural effusion with atelecatasis vs PNA. Patietn still with cough but WBC trending down and no fever (patient is still on Erythromycin). Will hold additional abx at this time. Continue Xopenex, Pulmozyme and Pulmicort. Repeat lasix. (3) Asthma: Qualifiers: Asthma severity: unspecified severity Asthma persistence: unspecified Asthma complication type: uncomplicated Qualified Code(s): J45.909 - Unspecified asthma, uncomplicated Code(s): J45.909 - Unspecified asthma, uncomplicated Status: Chronic Assessment and Plan: As above. (4) Diarrhea: Qualifiers: Diarrhea type: unspecified type Qualified Code(s): R19.7 - Diarrhea, unspecified Code(s): R19.7 - Diarrhea, unspecified Status: Acute Assessment and Plan: The patient had diarrhea initially after a two week course of levaquin. She completed an empiric course of oral vancomycin for possible CDiff. She was NPO and was on parenteral nutrition. Plan is above, no stool testing has been performed. Will continue empiric Fidoxamicin. (5) Acute on chronic renal failure: Qualifiers: Acute renal failure type: unspecified Chronic kidney disease stage: stage 3 (moderate) Qualified Code(s): N17.9 - Acute kidney failure, unspecified; N18.3 - Chronic kidney disease, stage 3 (moderate) Code(s): N17.9 - Acute kidney failure, unspecified; N18.9 - Chronic kidney disease, unspecified Status: Acute Assessment and Plan: Baseline creatinine 1.4. Cr increased 2.6 before trending back down. Currently Cr 1.3. Excellent urine output from the Lasix the other day. Continue to monitor. (6) Benign essential hypertension: Code(s): I10 - Essential (primary) hypertension Status: Chronic Assessment and Plan: Blood pressure reviewed on 12/19/2019. Blood pressure elevated at times. Continue IV Lopressor. Hydralazine IV available for severe hypertension. Home lisinopril on hold. (7) DM type 2 (diabetes mellitus, type 2): Qualifiers: Diabetes mellitus custodial insulin use: without vermin exterminator use Diabet
[2019-12-20 17:39] LABS: Glucose Point of Care 223 (65-105)
[2019-12-20 20:18] LABS: Glucose Point of Care 214 (65-105)
[2019-12-20] MEDS: MELATONIN 3 MG TABLET PO (20:44)
[2019-12-20] MEDS: PANTOPRAZOLE 40 MG TABLET PO (20:45)
--- NOTE | 2019-12-20 23:23 | PM.PNPUL ---
Subjective Date/time seen: 12/20/19 Patient is stable form the pulmonary standpoint. Will sign off. Objective Data Vital Signs Vital Signs: Vital Signs - 24 hr 12/19/19 23:42 12/20/19 00:00 12/20/19 02:00 12/20/19 02:23 12/20/19 02:33 12/20/19 04:00 Temperature 36.7 C Pulse Rate 80 82 89 Respiratory Rate 20 20 20 Blood Pressure 134/47 L Pulse Oximetry 96 12/20/19 05:46 12/20/19 06:00 12/20/19 08:00 Temperature Pulse Rate 89 74 77 Respiratory Rate Blood Pressure Pulse Oximetry 12/20/19 08:20 12/20/19 09:22 12/20/19 09:26 Temperature 36.4 C L Pulse Rate 79 84 Respiratory Rate 22 H 20 Blood Pressure 138/54 L Pulse Oximetry 94 93 12/20/19 09:29 12/20/19 10:00 12/20/19 12:00 Temperature Pulse Rate 82 82 86 Respiratory Rate 20 Blood Pressure Pulse Oximetry 12/20/19 12:36 12/20/19 12:59 12/20/19 14:17 Temperature 36.9 C Pulse Rate 93 99 84 Respiratory Rate 20 20 Blood Pressure 138/58 L Pulse Oximetry 96 12/20/19 14:24 12/20/19 15:40 12/20/19 17:42 Temperature 36.6 C Pulse Rate 82 85 88 Respiratory Rate 20 16 Blood Pressure 145/64 H Pulse Oximetry 94 12/20/19 19:39 12/20/19 19:42 12/20/19 19:47 Temperature Pulse Rate 86 88 Respiratory Rate 20 20 Blood Pressure Pulse Oximetry 94 12/20/19 20:00 Temperature Pulse Rate 88 Respiratory Rate 20 Blood Pressure Pulse Oximetry 94 Intake/Output Intake/Output: Intake & Output 12/17/19 12/18/19 12/19/19 12/20/19 23:59 23:59 23:59 23:59 Intake Total 3745 3280 1905 4644 Output Total 3625 2175 2050 900 Balance 120 1105 -145 3744 Meds/Results Medications: Active Medications Generic Name Dose Route Start Last Admin Trade Name Freq PRN Reason Stop Dose Admin Budesonide 0.5 mg 12/12/19 20:00 12/20/19 19:39 Pulmicort Respule Neb INHALATION 0.5 mg Q12HRT IRIS Administration Clotrimazole 1 applic 12/15/19 09:30 12/20/19 20:43 Lotrisone Cream TOPICAL 1 applic Q12HR IRIS Administration Dextrose 12.5 gm 12/01/19 23:12 Dextrose 50% Syringe IV PUSH PRN PRN Hypoglycemia Protocol Dornase Yfn 2.5 mg 12/08/19 20:00 12/20/19 19:39 Pulmozyme INHALATION 2.5 mg Q12HRT IRIS Administration Enoxaparin Sodium 30 mg 12/07/19 09:00 12/20/19 09:55 Lovenox SUB-Q 30 mg DAILY IRIS Administration Fidaxomicin 200 mg 12/15/19 09:00 12/20/19 20:44 Dificid PO 200 mg Q12HR IRIS Administration Glucagon 1 mg 12/01/19 23:12 Glucagon For Inj IM PRN PRN Hypoglycemia Protocol Glucose 15 gm 12/01/19 23:12 Glutose 15 PO PRN PRN Hypoglycemia Protocol Hydralazine HCl 10 mg 12/15/19 13:13 Apresoline Hcl Inj IV PUSH Q4H PRN Blood Pressure - High Dextrose 1,000 mls @ 100 mls/hr 12/01/19 23:12 Dextrose 5% 1,000 Ml IVPB PRN PRN Hypoglycemia Protocol Dextrose 1,000 mls @ 50 mls/hr 12/07/19 07:13 Dextrose 10% IV CONT .Q20H PRN if PN is interrupted Multivitamins 5 ml/ Amino 2,005 mls @ 50 mls/hr 12/07/19 09:00 12/20/19 19:05 Acids/Electrolytes/Dextrose IV CONT 50 mls/hr .Q24H IRIS Infusion Protocol Fat Emulsion Intravenous 250 mls @ 20.833 mls/hr 12/07/19 10:00 12/20/19 19:06 Lipids 20% IVPB 21 mls/hr Q24H IRIS Infusion Erythromycin Lactobionate 500 100 mls @ 100 mls/hr 12/13/19 18:00 12/20/19 17:41 mg/ Sodium Chloride IVPB 100 mls/hr Q6HR IRIS Administration Insulin Aspart 3 - 6 units 12/09/19 08:00 12/20/19 17:45 Novolog SUB-Q 3 units TIDWM IRIS Administration Protocol Insulin Detemir 18 units 12/16/19 21:00 12/20/19 20:46 Levemir SUB-Q 18 units Q12HR IRIS Administration Ipratropium [place] 0.5 mg 12/11/19 18:04 12/18/19 14:30 Atrovent Neb INHALATION 0.5 mg Q6HR PRN Administration Shortness of breath, Wheezing Levalbuterol HCl 1.25 mg 11/26
[2019-12-21] VITALS (14 sets, daily range): BP systolic 130–146; BP diastolic 52–74; PULSE 78–100; RESP 18–24; TEMP 35.6–36.6; O2SAT 90–100
[2019-12-21] MEDS: METOPROLOL TARTRATE INJ 5 MG/5 ML VIAL IV PUSH (05:37)
[2019-12-21] MEDS: LEVOTHYROXINE SODIUM 112 MCG TABLET PO (05:37)
[2019-12-21 06:02] LABS: Hematocrit 26.5 % (37.0-47.0); Hemoglobin 8.2 g/dL (12.0-15.0); Mean Corpuscular HGB Conc 30.9 g/dl (32-36); Mean Corpuscular Hemoglobin 30.6 pg (26-34); Mean Corpuscular Volume 98.9 fl (80-100); Mean Platelet Volume 11.1 fl (7.4-10.4); Platelet Count Result 277 k/mm3 (150-375); Red Blood Count 2.68 M/mm3 (4.2-5.4); Red Cell Distribution Width 14.2 % (11.5-14.5); White Blood Count 11.8 K/mm3 (4.5-10.0)
[2019-12-21 06:09] LABS: Blood Urea Nitrogen 34 mg/dL (7-17); Calcium 7.6 mg/dL (8.4-10.2); Carbon Dioxide 27 mmol/L (22-30); Chloride 100 mmol/L (98-107); Estimated CRCL calculation 41 ml/min; Estimated Glomerular Filt Rate 40; Glucose 207 mg/dL (65-105); Magnesium 1.5 mg/dL (1.6-2.3); Potassium 3.3 mmol/L (3.4-5.0); Sodium 133 mmol/L (137-145)
[2019-12-21] MEDS: ENOXAPARIN 30 MG/0.3 ML SYRINGE SUB-Q (08:05)
[2019-12-21] MEDS: FIDAXOMICIN 200 MG TABLET PO ×2 (08:05→20:16)
[2019-12-21] MEDS: PANTOPRAZOLE 40 MG TABLET PO ×2 (08:06→20:16)
[2019-12-21] MEDS: BETAMETHASONE/CLOTRIMAZOLE CR 15 GM TUBE 1 APPLIC TOPICAL ×2 (08:07→20:18)
[2019-12-21] MEDS: MAGNESIUM SULF 2 GM/WATER 50ML 2 GM/50 ML BAG IVPB (08:09)
[2019-12-21] MEDS: POTASSIUM CHLORIDE 20 MEQ TABLET 40 MEQ PO (08:09)
[2019-12-21] MEDS: INSULIN DETEMIR 100 UNITS/ML 18 UNITS SUB-Q ×2 (08:12→20:18)
[2019-12-21 08:16] LABS: Glucose Point of Care 195 (65-105)
[2019-12-21] MEDS: DORNASE ALFA INH SOLN 1 MG/ML 2.5 ML AMP 2.5 MG INHALATION ×2 (08:17→20:12)
[2019-12-21] MEDS: BUDESONIDE RESPULE NEB 0.5 MG/2 ML AMP INHALATION ×2 (08:18→20:12)
[2019-12-21] MEDS: MAGNESIUM OXIDE 400 MG TABLET PO (10:04)
--- NOTE | 2019-12-21 10:29 | PM.PNGS ---
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 Although her abdomen seems somewhat more distended today. Her WBC is also slightly elevated today at 11,800. Will get a KUB tomorrow morning and repeat her labs. If she continues to have colonic dilation, may need to consider having GI re-evaluate the patient. Continue antibiotics. Encouraged the patient to continue to increase activity and get up in the chair again today. (2) Protein-calorie malnutrition, moderate: Code(s): E44.0 - Moderate protein-calorie malnutrition Status: Acute Assessment and Plan: Continue current diet and TPN for today. Will reassess tomorrow. (3) Acute respiratory failure: Qualifiers: Respiratory failure complication: hypoxia and hypercapnia Qualified Code(s): J96.01 - Acute respiratory failure with hypoxia; J96.02 - Acute respiratory failure with hypercapnia Code(s): J96.00 - Acute respiratory failure, unspecified whether with hypoxia or hypercapnia Status: Acute Assessment and Plan: Improved. Additional Plan Discussed plan of care with Dr. Lucas today. Subjective Subjective Date/Time Seen: 12/21/19 09:00 Post Op day: 15 (Ex lap) Patient reports: no new complaints, feels better, flatus and bowel movement Interval history: Patient sitting up and eating breakfast upon entering the room. Appears more alert today. Patient states she is feeling better today and is hungry. She reports eating majority of her trays during meals. She is passing gas and had 3-4 bowel movements overnight. Denies any nausea or vomiting. Reports sitting up in the chair for about 6 hours yesterday. No other complaints at this time. Review of Systems Review of Systems: All systems reviewed & are unremarkable except as noted in HPI and below Cardiovascular: Cardiovascular: Denies chest pain and Denies pedal edema Respiratory: Respiratory: Denies chest congestion and Denies dyspnea Gastrointestinal: Gastrointestinal: Denies abdominal pain, Denies bloating, Denies nausea and Denies vomiting Exam Const: General: comfortable, no acute distress and awake Nutritional Appearance: obese Orientation/consciousness: patient oriented x3 GI: Inspection: distended, obesity and other (Abdominal incision healing well, dry and intact. No drainage.) GI Palp: Yes Soft to palpation, No Tenderness to palpation present (GI), No Guarding due to palpation present (GI) and No Rebound tenderness present Auscultation: High-pitched bowel sounds present Neuro: General: moves all extremities and no focal motor deficits Extrem: General: no calf tenderness and no edema Psych: Mental Status: mental status grossly normal Affect: normal affect Thought process: Normal thought process present Insight: Good insight present (Psych) Judgement: Good judgement present (Psych) Objective Data Vital Signs Vital Signs: Vital Signs - 24 hr 12/20/19 12:00 12/20/19 12:36 12/20/19 12:59 Temperature 36.9 C Pulse Rate 86 93 99 Respiratory Rate 20 Blood Pressure 138/58 L Pulse Oximetry 96 12/20/19 14:17 12/20/19 14:24 12/20/19 15:40 Temperature 36.6 C Pulse Rate 84 82 85 Respiratory Rate 20 20 16 Blood Pressure 145/64 H Pulse Oximetry 94 12/20/19 17:42 12/20/19 19:39 12/20/19 19:42 Temperature Pulse Rate 88 86 Respiratory Rate 20 Blood Pressure Pulse Oximetry 94 12/20/19 19:47 12/20/19 20:00 12/20/19 23:15 Temperature Pulse Rate 88 88 70 Respiratory Rate 20 20 Blood Pressure Pulse Oximetry 94 12/21/19 00:00 12/21/19 01:53 12/21/19 01:58 Temperature 36.2 C L Pulse Rate 95 80 84 Respiratory Rate 20 18 18 Blood Pressure 133/63 Pulse Oximetry 98 12/21/19 05:37 12/21/19 05:55 12/21/19 08:20 Temperat
--- NOTE | 2019-12-21 11:00 | PCOTNOTE ---
Attempted to see Patient at this time. Patient declined to perform any activity at this time. Patient had just had some physical therapy, and verbalized 'I cant do this today, I'm so tired . Will try back at a later time.
[2019-12-21] MEDS: FAT EMULSIONS IV 20% 250 ML 21 ML IVPB (11:28)
[2019-12-21] MEDS: ROSUVASTATIN 10 MG TABLET 40 MG PO (12:13)
[2019-12-21] MEDS: hydroCHLOROthiazide 12.5 MG CAPSULE PO (12:13)
[2019-12-21] MEDS: INSULIN ASPART (*BKC) 100 UNITS/ML SUB-Q ×2 (12:16→17:12)
[2019-12-21 12:25] LABS: Glucose Point of Care 224 (65-105)
--- NOTE | 2019-12-21 13:44 | PCOTNOTE ---
Attempted to see patient this pm, however patient declined stating, I just want to rest. I never get to just rest. I'm so tired. I never get any sleep. I just want to sleep. Maybe later.
--- NOTE | 2019-12-21 15:09 | PM.IMPN ---
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 Lucas. 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 The pt does have a hx of colonic ileus in 2016 treated with decompressive colonoscopy. SBS 12/11 showing mild SB dilation but severe ileus. She has relatively poor output after the Neostigmine with a repeat dose not helpful. Reglan stopped and Erythromycin started 12/13/19. Miralax also started. Decompression by colonoscopy on 12/16/19 and has rectal tube to suction. KUB on 12/18 showed moderate gas in the small bowel and colon c/w ileus. Appreciate GI and General surgery input. NG tube out on 12/18 and clear liquids have been ordered. Patient seen by surgery team on 12/19 started on a soft diet, today patient states feeling better any eating, had a BM, seen by surgery suspect the patient has a distended abdomen, will do KUB tomorrow to further evaluate monitor closely. Contineu PT/OT patient is encouraged be out of the bed. (2) Acute respiratory failure: Qualifiers: Respiratory failure complication: hypoxia and hypercapnia Qualified Code(s): J96.01 - Acute respiratory failure with hypoxia; J96.02 - Acute respiratory failure with hypercapnia Code(s): J96.00 - Acute respiratory failure, unspecified whether with hypoxia or hypercapnia Status: Acute Assessment and Plan: RN called after pt developed dyspnea following small bowel follow-through on 12/12/2019. CXR showing congestive changes and 1 dose of IV lasix 40mg was given with good urine output. On 12/12, patient was somnolent and ABG showing 7.19/75/76 so BiPAP started. ABG on 12/14 showing 7.41/48/78. Patient has since been refusing the BiPAP so this was stopped. CXR showing CMG and pulmonary edema on 12/17/19 and Lasix given with good UOP. Repeat CXR 12/18 showed Left lower lung with pleural effusion with atelecatasis vs PNA. Patietn still with cough but WBC trending down and no fever (patient is still on Erythromycin). Will hold additional abx at this time. Continue Xopenex, Pulmozyme and Pulmicort. Repeat lasix. Patient clinically symptoms are improving patient is seen by Dr. Sampson and further recommendation to follow (3) Asthma: Qualifiers: Asthma severity: unspecified severity Asthma persistence: unspecified Asthma complication type: uncomplicated Qualified Code(s): J45.909 - Unspecified asthma, uncomplicated Code(s): J45.909 - Unspecified asthma, uncomplicated Status: Chronic Assessment and Plan: As above. (4) Diarrhea: Qualifiers: Diarrhea type: unspecified type Qualified Code(s): R19.7 - Diarrhea, unspecified Code(s): R19.7 - Diarrhea, unspecified Status: Acute Assessment and Plan: The patient had diarrhea initially after a two week course of levaquin. She completed an empiric course of oral vancomycin for possible CDiff. She was NPO and was on parenteral nutrition. Plan is above, no stool testing has been performed. Will continue empiric Fidoxamicin. (5) Acute on chronic renal failure: Qualifiers: Acute renal failure type: unspecified Chronic kidney disease stage: stage 3 (moderate) Qualified Code(s): N17.9 - Acute kidney failure, unspecified; N18.3 - Chronic kidney disease, stage 3 (moderate) Code(s): N17.9 - Acute kidney failure, unspecified; N18.9 - Chronic kidney disease, unspecified Status: Acute Assessment and Plan: Baseline creatinine 1.4. Cr increased 2.6 before trending back down. Currently Cr 1.3. Excellent urine output from the Lasix the other day. Continue to monitor. (6) Benign essential hypertension: Code(s): I10 - Essential (primary) hypertension Status: Chronic Assessment and Plan: Blood pressure r
[2019-12-21 17:12] LABS: Glucose Point of Care 221 (65-105)
[2019-12-21] MEDS: MELATONIN 3 MG TABLET PO (20:16)
[2019-12-21] MEDS: lisinopriL 20 MG TABLET PO (20:17)
[2019-12-21 21:49] LABS: Glucose Point of Care 209 (65-105)
[2019-12-22] VITALS (11 sets, daily range): BP systolic 144–176; BP diastolic 60–76; PULSE 84–96; RESP 16–24; TEMP 36.1–36.4; O2SAT 91–94
[2019-12-22] MEDS: LEVOTHYROXINE SODIUM 112 MCG TABLET PO (06:01)
[2019-12-22 06:20] LABS: Hematocrit 25.2 % (37.0-47.0); Mean Corpuscular HGB Conc 31.7 g/dl (32-36); Mean Corpuscular Hemoglobin 30.9 pg (26-34); Mean Corpuscular Volume 97.3 fl (80-100); Mean Platelet Volume 10.7 fl (7.4-10.4); Platelet Count Result 308 k/mm3 (150-375); Red Blood Count 2.59 M/mm3 (4.2-5.4); Red Cell Distribution Width 14.2 % (11.5-14.5); White Blood Count 13.3 K/mm3 (4.5-10.0)
[2019-12-22 06:31] LABS: Blood Urea Nitrogen 31 mg/dL (7-17); Calcium 7.7 mg/dL (8.4-10.2); Carbon Dioxide 28 mmol/L (22-30); Chloride 97 mmol/L (98-107); Estimated CRCL calculation 45 ml/min; Estimated Glomerular Filt Rate 43; Glucose 246 mg/dL (65-105); Magnesium 1.7 mg/dL (1.6-2.3); Potassium 3.8 mmol/L (3.4-5.0); Sodium 128 mmol/L (137-145)
[2019-12-22 08:30] LABS: Glucose Point of Care 229 (65-105)
[2019-12-22] MEDS: MAGNESIUM OXIDE 400 MG TABLET PO (08:44)
[2019-12-22] MEDS: lisinopriL 20 MG TABLET PO ×2 (08:44→20:23)
[2019-12-22] MEDS: ROSUVASTATIN 10 MG TABLET 40 MG PO (08:44)
[2019-12-22] MEDS: FIDAXOMICIN 200 MG TABLET PO ×2 (08:45→20:23)
[2019-12-22] MEDS: hydroCHLOROthiazide 12.5 MG CAPSULE PO (08:45)
[2019-12-22] MEDS: PANTOPRAZOLE 40 MG TABLET PO ×2 (08:45→20:23)
[2019-12-22] MEDS: ENOXAPARIN 30 MG/0.3 ML SYRINGE SUB-Q (08:45)
[2019-12-22] MEDS: BETAMETHASONE/CLOTRIMAZOLE CR 15 GM TUBE 1 APPLIC TOPICAL ×2 (08:46→20:23)
[2019-12-22] MEDS: DORNASE ALFA INH SOLN 1 MG/ML 2.5 ML AMP 2.5 MG INHALATION ×2 (08:56→20:42)
[2019-12-22] MEDS: BUDESONIDE RESPULE NEB 0.5 MG/2 ML AMP INHALATION ×2 (08:56→20:42)
--- NOTE | 2019-12-22 09:29 | PCPTNOTE ---
Patient refused Physical Therapy this AM. Patient stated that she was too tired. Patient stated that she is going to be transferred to [facility].
[2019-12-22] MEDS: FAT EMULSIONS IV 20% 250 ML 20.8 ML IVPB (10:29)
[2019-12-22] MEDS: INSULIN ASPART (*BKC) 100 UNITS/ML SUB-Q ×2 (12:22→17:22)
--- NOTE | 2019-12-22 12:30 | WPDGIPROGNO ---
Subjective Date/time seen: 12/22/19 12:30 This very pleasant lady had a loose bowel movement this morning. No abdominal pain. Her breathing is improved. KUB shows increasing colonic distention. Physical examination: General: very pleasant patient in no acute distress. HEENT: Head was normocephalic sclerae is clear mouth without masses neck was supple. Heart: Rate rhythm regular without S3 or S4. Lungs: Decreased breath sounds in the bases. Her lungs have improved considerably. Abdomen: Soft and distended. High-pitched bowel sounds were present. No tenderness. Neurologic: Cranial nerves 2 through 12 intact. No focal defects. No clonus. Musculoskeletal system: Revealed no joint tenderness or swelling no muscle atrophy. Extremities: Reveal no significant edema. Skin: Warm and dry with normal turgor. Mental status: intact. Patient is alert and oriented. Impression: Persistent ileus/pseudo-obstruction. Presently on treatment C diff. Patient receiving Dificid. C diff has not been proven.? Leukocytosis. May be secondary to above. Increasing shortness of breath. This may be secondary underlying atelectasis/COPD. Malnutrition. Recent pneumonia. History of adenomatous colon polyps. Last colonoscopy was September of 2018. Diabetes mellitus. Hypertension. Hyperlipidemia. Chronic kidney disease. COPD. Hypothyroidism. Rheumatoid arthritis. DVT by history. Obesity. Recommendation: Recheck laboratory studies. Will place rectal tube. Enemas today. To collect b.i.d.. Recheck KUB in the morning. If dilation persistent and no improvement will try decompression a 2nd time. The patient certainly needs transfer to a tertiary facility. She has failed water-soluble barium enema, laparotomy, erythromycin, neostigmine, MiraLax, enemas, colonic decompression with tube and Dulcolax suppositories. Objective Data Vital Signs Vital Signs: Vital Signs - 24 hr 12/21/19 13:40 12/21/19 13:50 12/21/19 14:00 Temperature 36.3 C L Pulse Rate 100 96 94 Respiratory Rate 20 20 20 Blood Pressure 136/52 L Pulse Oximetry 93 12/21/19 20:12 12/21/19 20:26 12/21/19 21:13 Temperature 35.6 C L Pulse Rate 92 94 95 Respiratory Rate 24 H 24 H 18 Blood Pressure 146/74 H Pulse Oximetry 91 100 12/22/19 01:55 12/22/19 02:04 12/22/19 06:20 Temperature 36.1 C L Pulse Rate 87 91 94 Respiratory Rate 22 H 22 H 18 Blood Pressure 176/76 H Pulse Oximetry 94 12/22/19 08:08 12/22/19 08:56 Temperature Pulse Rate 94 96 Respiratory Rate 18 18 Blood Pressure Pulse Oximetry 92 Intake/Output Intake/Output: Intake & Output 12/19/19 12/20/19 12/21/19 12/22/19 23:59 23:59 23:59 23:59 Intake Total 1905 5005 1940 2222 Output Total 2050 900 1702 1150 Balance -145 4105 238 1072 Meds/Results Medications: Active Medications Generic Name Dose Route Start Last Admin Trade Name Freq PRN Reason Stop Dose Admin Albuterol 1 - 2 puff 12/21/19 11:40 Proventil Hfa INHALATION Q6-8H PRN Shortness Of Breath Budesonide 0.5 mg 12/12/19 20:00 12/22/19 08:56 Pulmicort Respule Neb INHALATION 0.5 mg Q12HRT IRIS Administration Clotrimazole 1 applic 12/15/19 09:30 12/22/19 08:46 Lotrisone Cream TOPICAL 1 applic Q12HR IRIS Administration Dextrose 12.5 gm 12/01/19 23:12 Dextrose 50% Syringe IV PUSH PRN PRN Hypoglycemia Protocol Dornase Yfn 2.5 mg 12/08/19 20:00 12/22/19 08:56 Pulmozyme INHALATION 2.5 mg Q12HRT IRIS Administration Enoxaparin Sodium 30 mg 12/07/19 09:00 12/22/19 08:45 Lovenox SUB-Q 30 mg DAILY IRIS Administration Fidaxomicin 200 mg 12/15/19 09:00 12/22/19 08:45 Dificid PO 200 mg Q12HR IRIS Administration Glucagon 1 mg 12/01/19 23:12 Glucagon For Inj IM PRN PRN Hypoglycemia Protocol Glucose 15 gm 12/01/19 23:12 Glutose 15 PO PRN PRN Hypoglycemia Protocol Hyd
--- NOTE | 2019-12-22 12:50 | PM.PNGS ---
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 I reviewed the KUB and it shows increased colonic distention as well as some small bowel dilatation. I called Dr. Bright and discussed with him. I called Dr. Romano and also discussed with him. . Continue to monitor with daily KUB, lab testing and abdominal exam. (2) Protein-calorie malnutrition, moderate: Code(s): E44.0 - Moderate protein-calorie malnutrition Status: Acute Assessment and Plan: Continue TPN. Will make patient NPO again. Subjective Subjective Date/Time Seen: 12/22/19 12:50 Patient reports: no new complaints, bowel movement and nausea Review of Systems Review of Systems: All systems reviewed & are unremarkable except as noted in HPI and below Constitutional: Constitutional: Denies headache(s) ENT: Denies headache(s) Cardiovascular: Cardiovascular: Denies chest pain and Denies dyspnea Respiratory: Respiratory: Denies cough and Denies dyspnea Gastrointestinal: Gastrointestinal: Reports as per HPI Neurologic: Denies confusion and Denies headache(s) Psychiatric: Psychiatric: Denies confusion Exam Const: General: comfortable and no acute distress; No confusion Orientation/consciousness: patient oriented x3 and No confusion GI: Inspection: distended, incision ( Clean dry and healing well) and obesity GI Palp: Yes Soft to palpation, No Tenderness to palpation present (GI), No Guarding due to palpation present (GI) and No Rebound tenderness present Percussion: Yes tympanic to percussion Auscultation: High-pitched bowel sounds present Neuro: General: patient oriented x3, no focal motor deficits and No confusion Extrem: General: no calf tenderness and no edema Psych: Affect: normal affect Insight: Good insight present (Psych) Judgement: Good judgement present (Psych) Objective Data Vital Signs Vital Signs: Vital Signs - 24 hr 12/21/19 13:40 12/21/19 13:50 12/21/19 14:00 Temperature 36.3 C L Pulse Rate 100 96 94 Respiratory Rate 20 20 20 Blood Pressure 136/52 L Pulse Oximetry 93 12/21/19 20:12 12/21/19 20:26 12/21/19 21:13 Temperature 35.6 C L Pulse Rate 92 94 95 Respiratory Rate 24 H 24 H 18 Blood Pressure 146/74 H Pulse Oximetry 91 100 12/22/19 01:55 12/22/19 02:04 12/22/19 06:20 Temperature 36.1 C L Pulse Rate 87 91 94 Respiratory Rate 22 H 22 H 18 Blood Pressure 176/76 H Pulse Oximetry 94 12/22/19 08:08 12/22/19 08:56 Temperature Pulse Rate 94 96 Respiratory Rate 18 18 Blood Pressure Pulse Oximetry 92 Intake/Output Intake/Output: Intake & Output 12/19/19 12/20/19 12/21/19 12/22/19 23:59 23:59 23:59 23:59 Intake Total 1905 5005 1940 2222 Output Total 2050 900 1702 1150 Balance -145 4105 238 1072 Meds/Results Medications: Active Medications Generic Name Dose Route Start Last Admin Trade Name Freq PRN Reason Stop Dose Admin Albuterol 1 - 2 puff 12/21/19 11:40 Proventil Hfa INHALATION Q6-8H PRN Shortness Of Breath Bisacodyl 10 mg 12/22/19 21:00 Dulcolax Suppository RECTAL Q12HR IRIS Budesonide 0.5 mg 12/12/19 20:00 12/22/19 08:56 Pulmicort Respule Neb INHALATION 0.5 mg Q12HRT IRIS Administration Clotrimazole 1 applic 12/15/19 09:30 12/22/19 08:46 Lotrisone Cream TOPICAL 1 applic Q12HR IRIS Administration Dextrose 12.5 gm 12/01/19 23:12 Dextrose 50% Syringe IV PUSH PRN PRN Hypoglycemia Protocol Dornase Yfn 2.5 mg 12/08/19 20:00 12/22/19 08:56 Pulmozyme INHALATION 2.5 mg Q12HRT IRIS Administration Enoxaparin Sodium 30 mg 12/07/19 09:00 12/22/19 08:45 Lovenox SUB-Q 30 mg DAILY IRIS Administration Fidaxomicin 200 mg 12/15/19 09:00 12/21
--- NOTE | 2019-12-22 14:03 | PM.IMPN ---
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 Lucas. 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 The pt does have a hx of colonic ileus in 2016 treated with decompressive colonoscopy. SBS 12/11 showing mild SB dilation but severe ileus. She has relatively poor output after the Neostigmine with a repeat dose not helpful. Reglan stopped and Erythromycin started 12/13/19. Miralax also started. Decompression by colonoscopy on 12/16/19 and has rectal tube to suction. KUB on 12/18 showed moderate gas in the small bowel and colon c/w ileus. Appreciate GI and General surgery input. NG tube out on 12/18 and clear liquids have been ordered. Patient seen by surgery team on 12/19 started on a soft diet, on 12/20 patient stated feeling better and eating, had a BM, was seen by surgery suspect the patient has a distended abdomen, today patient was seen by surgery team and patient abdomen is quite distended I spoke with Dr. Lucas and was asked to transfer the patient to tertiary care, I spoke with Dr. Gaspar and Dr. eduardo at [facility] and both are recommending continue present management and may try enema and do not recommending transfer the patient, spoke with GI and patient was seen by the GI and digital exam by GI increase the loose BM, plan is to continue present management and monitor, if symptoms persist patient may need decompression with colonoscopy, will continue to monitor, patient herself states feeling better other than complaint of distended abdomen denies any fever or chills however her white counts are elevated, (2) Acute respiratory failure: Qualifiers: Respiratory failure complication: hypoxia and hypercapnia Qualified Code(s): J96.01 - Acute respiratory failure with hypoxia; J96.02 - Acute respiratory failure with hypercapnia Code(s): J96.00 - Acute respiratory failure, unspecified whether with hypoxia or hypercapnia Status: Acute Assessment and Plan: RN called after pt developed dyspnea following small bowel follow-through on 12/12/2019. CXR showing congestive changes and 1 dose of IV lasix 40mg was given with good urine output. On 12/12, patient was somnolent and ABG showing 7.19/75/76 so BiPAP started. ABG on 12/14 showing 7.41/48/78. Patient has since been refusing the BiPAP so this was stopped. CXR showing CMG and pulmonary edema on 12/17/19 and Lasix given with good UOP. Repeat CXR 12/18 showed Left lower lung with pleural effusion with atelecatasis vs PNA. Patietn still with cough but WBC trending down and no fever (patient is still on Erythromycin). Will hold additional abx at this time. Continue Xopenex, Pulmozyme and Pulmicort. Repeat lasix. Patient clinically symptoms are improving patient is seen by Dr. Sampson and further recommendation to follow (3) Asthma: Qualifiers: Asthma severity: unspecified severity Asthma persistence: unspecified Asthma complication type: uncomplicated Qualified Code(s): J45.909 - Unspecified asthma, uncomplicated Code(s): J45.909 - Unspecified asthma, uncomplicated Status: Chronic Assessment and Plan: As above. (4) Diarrhea: Qualifiers: Diarrhea type: unspecified type Qualified Code(s): R19.7 - Diarrhea, unspecified Code(s): R19.7 - Diarrhea, unspecified Status: Acute Assessment and Plan: The patient had diarrhea initially after a two week course of levaquin. She completed an empiric course of oral vancomycin for possible CDiff. She was NPO and was on parenteral nutrition. Plan is above, no stool testing has been performed. Will continue empiric Fidoxamicin. (5) Acute on chronic renal failure: Qualifiers: Acute renal failure type: unspecified Chronic kidney disease stage: stage 3 (moderate)
[2019-12-22 14:49] LABS: Phosphorus 2.8 mg/dL (2.5-4.5)
[2019-12-22] MEDS: polyethylene glycoL 3350 17 GM POWD.PACK PO ×3 (14:50→20:22)
[2019-12-22 16:10] LABS: Glucose Point of Care 269 (65-105)
[2019-12-22 17:23] LABS: Glucose Point of Care 247 (65-105)
[2019-12-22] MEDS: MELATONIN 3 MG TABLET PO (20:23)
[2019-12-22] MEDS: BISACODYL 10 MG SUPPOSITORY RECTAL (20:23)
[2019-12-22] MEDS: INSULIN DETEMIR 100 UNITS/ML 18 UNITS SUB-Q (20:25)
[2019-12-22 21:17] LABS: Glucose Point of Care 218 (65-105)
[2019-12-23] VITALS (13 sets, daily range): BP systolic 91–148; BP diastolic 44–85; PULSE 83–103; RESP 18–30; TEMP 35.9–36.8; O2SAT 91–100
[2019-12-23] MEDS: INSULIN ASPART (*BKC) 100 UNITS/ML SUB-Q ×2 (00:09→06:01)
[2019-12-23 00:22] LABS: Glucose Point of Care 282 (65-105)
[2019-12-23 05:56] LABS: Hematocrit 24.2 % (37.0-47.0); Hemoglobin 8.2 g/dL (12.0-15.0); Mean Corpuscular HGB Conc 33.9 g/dl (32-36); Mean Corpuscular Hemoglobin 31.5 pg (26-34); Mean Corpuscular Volume 93.1 fl (80-100); Mean Platelet Volume 10.7 fl (7.4-10.4); Platelet Count Result 314 k/mm3 (150-375); Red Cell Distribution Width 13.9 % (11.5-14.5); White Blood Count 14.4 K/mm3 (4.5-10.0)
[2019-12-23] MEDS: LEVOTHYROXINE SODIUM 112 MCG TABLET PO (06:01)
[2019-12-23 06:09] LABS: Blood Urea Nitrogen 33 mg/dL (7-17); Calcium 7.5 mg/dL (8.4-10.2); Carbon Dioxide 28 mmol/L (22-30); Chloride 96 mmol/L (98-107); Estimated CRCL calculation 45 ml/min; Estimated Glomerular Filt Rate 43; Glucose 216 mg/dL (65-105); Magnesium 1.7 mg/dL (1.6-2.3); Potassium 3.7 mmol/L (3.4-5.0); Sodium 126 mmol/L (137-145)
[2019-12-23 06:18] LABS: Glucose Point of Care 215 (65-105)
--- NOTE | 2019-12-23 06:41 | PM.PNGS ---
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 It appears Dr. Brgiht plans to proceed with repeat decompressive colonoscopy. Dr. Looney will be available over the weekend but we will follow peripherally until Thursday. (2) Protein-calorie malnutrition, moderate: Code(s): E44.0 - Moderate protein-calorie malnutrition Status: Acute Assessment and Plan: Continue TPN as Marielle syndrome persists. Subjective Subjective Date/Time Seen: 12/23/19 06:41 No complaints. Asked about diarrhea which she denied. No abdominal pain. Review of Systems Review of Systems: All systems reviewed & are unremarkable except as noted in HPI and below Constitutional: Constitutional: Denies chills, Denies fever(s) and Denies headache(s) ENT: Denies headache(s) Cardiovascular: Cardiovascular: Denies chest pain and Denies dyspnea Respiratory: Respiratory: Denies cough and Denies dyspnea Gastrointestinal: Gastrointestinal: Reports as per HPI Neurologic: Denies confusion, Denies headache(s) and Denies Sensory deficit (Neuro) Psychiatric: Psychiatric: Denies confusion Exam Const: General: cooperative, comfortable, no acute distress and tired appearing; No confusion Nutritional Appearance: obese Orientation/consciousness: patient oriented x3 and No confusion GI: Inspection: distended, incision ( Clean dry and healing well) and obesity GI Palp: Yes Firmness to palpation present (GI), No Tenderness to palpation present (GI), No Guarding due to palpation present (GI) and No Rebound tenderness present Percussion: Yes tympanic to percussion Auscultation: High-pitched bowel sounds present Objective Data Vital Signs Vital Signs: Vital Signs - 24 hr 12/22/19 08:08 12/22/19 08:56 12/22/19 14:00 Temperature 36.3 C L Pulse Rate 94 96 92 Respiratory Rate 18 18 19 Blood Pressure 144/60 H Pulse Oximetry 92 92 12/22/19 14:47 12/22/19 14:58 12/22/19 20:42 Temperature Pulse Rate 91 94 94 Respiratory Rate 20 20 24 H Blood Pressure Pulse Oximetry 91 12/22/19 20:55 12/22/19 21:42 12/23/19 02:04 Temperature 36.4 C Pulse Rate 95 84 83 Respiratory Rate 22 H 16 20 Blood Pressure 150/70 H Pulse Oximetry 94 12/23/19 02:12 12/23/19 06:07 Temperature 35.9 C L Pulse Rate 84 92 Respiratory Rate 24 H 18 Blood Pressure 142/72 H Pulse Oximetry 93 Intake/Output Intake/Output: Intake & Output 12/20/19 12/21/19 12/22/19 12/23/19 23:59 23:59 23:59 23:59 Intake Total 5005 1940 3241 100 Output Total 900 1702 1825 450 Balance 4105 238 1416 -350 Meds/Results Medications: Active Medications Generic Name Dose Route Start Last Admin Trade Name Freq PRN Reason Stop Dose Admin Albuterol 1 - 2 puff 12/21/19 11:40 Proventil Hfa INHALATION Q6-8H PRN Shortness Of Breath Bisacodyl 10 mg 12/22/19 21:00 12/22/19 20:23 Dulcolax Suppository RECTAL 10 mg Q12HR IRIS Administration Budesonide 0.5 mg 12/12/19 20:00 12/22/19 20:42 Pulmicort Respule Neb INHALATION 0.5 mg Q12HRT IRIS Administration Clotrimazole 1 applic 12/15/19 09:30 12/22/19 20:23 Lotrisone Cream TOPICAL 1 applic Q12HR IRIS Administration Dextrose 12.5 gm 12/01/19 23:12 Dextrose 50% Syringe IV PUSH PRN PRN Hypoglycemia Protocol Dornase Yfn 2.5 mg 12/08/19 20:00 12/22/19 20:42 Pulmozyme INHALATION 2.5 mg Q12HRT IRIS Administration Enoxaparin Sodium 30 mg 12/07/19 09:00 12/22/19 08:45 Lovenox SUB-Q 30 mg DAILY IRIS Administration Fidaxomicin 200 mg 12/15/19 09:00 12/22/19 20:23 Dificid PO 200 mg Q12HR IRIS Administration Glucagon 1 mg 12/01/19 23:12 Glucagon For Inj IM PRN PRN Hypoglycemia Protocol Glucose 15 gm 12/01/19 23:12 Glutose 15 PO
[2019-12-23] MEDS: BUDESONIDE RESPULE NEB 0.5 MG/2 ML AMP INHALATION (08:44)
[2019-12-23] MEDS: DORNASE ALFA INH SOLN 1 MG/ML 2.5 ML AMP 2.5 MG INHALATION (08:44)
--- NOTE | 2019-12-23 09:19 | PM.IMPN ---
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 She underwent colonic decompression by Dr. Bright today with minimal improvement as repeat KUB still shows significant colonic distention. Pt will be transferred to a higher level of care. [facility] has accepted the transfer. (2) Acute respiratory failure: Qualifiers: Respiratory failure complication: hypoxia and hypercapnia Qualified Code(s): J96.01 - Acute respiratory failure with hypoxia; J96.02 - Acute respiratory failure with hypercapnia Code(s): J96.00 - Acute respiratory failure, unspecified whether with hypoxia or hypercapnia Status: Acute Assessment and Plan: Respiratory status is stable today. She does have significant abdominal distention which is likely contributing to her mild dyspnea. Encourage PT/OT and IS Supplemental oxygen as needed to maintain SPO2 >94% Continue bronchodilators, pulmozyme, and pulmicort (3) Asthma: Qualifiers: Asthma complication type: uncomplicated Asthma persistence: unspecified Asthma severity: unspecified severity Qualified Code(s): J45.909 - Unspecified asthma, uncomplicated Code(s): J45.909 - Unspecified asthma, uncomplicated Status: Chronic Assessment and Plan: Continue bronchodilators and pulmicort (4) Diarrhea: Qualifiers: Diarrhea type: unspecified type Qualified Code(s): R19.7 - Diarrhea, unspecified Code(s): R19.7 - Diarrhea, unspecified Status: Resolved Assessment and Plan: The pt had diarrhea after a two week course of PO levaquin for PNA outpatient. She developed severe diarrhea following levaquin treatment and was treated for possible C. diff with PO vancomycin followed by fidoxamicin due to persistence of diarrhea. Dr. Bright saw no evidence of C. diff on colonocopy today so he has recommended discontinuation of fidoxamicin. (5) Acute on chronic renal failure: Qualifiers: Acute renal failure type: unspecified Chronic kidney disease stage: stage 3 (moderate) Qualified Code(s): N17.9 - Acute kidney failure, unspecified; N18.3 - Chronic kidney disease, stage 3 (moderate) Code(s): N17.9 - Acute kidney failure, unspecified; N18.9 - Chronic kidney disease, unspecified Status: Resolved Assessment and Plan: The pt had KALEB on CKD during her stay, likely pre-renal due to significant GI losses. Her Cr is back to baseline. Continue to monitor (6) Benign essential hypertension: Code(s): I10 - Essential (primary) hypertension Status: Chronic Assessment and Plan: BP reviewed and BP is improving. 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 Blood sugars are slightly above target, likely due to TPN. Continue levamir Continue ACHS Continue SSI Continue hypoglycemia protocol (8) Hypothyroidism (acquired): Code(s): E03.9 - Hypothyroidism, unspecified Status: Chronic Assessment and Plan: Continue levothyroxine (9) Abnormal CT scan, kidney: Code(s): R93.429
[2019-12-23] MEDS: lisinopriL 20 MG TABLET PO (09:38)
[2019-12-23] MEDS: hydroCHLOROthiazide 12.5 MG CAPSULE PO (09:38)
[2019-12-23] MEDS: BETAMETHASONE/CLOTRIMAZOLE CR 15 GM TUBE 1 APPLIC TOPICAL (09:43)
[2019-12-23] MEDS: FAT EMULSIONS IV 20% 250 ML 20.8 ML IVPB (09:44)
--- NOTE | 2019-12-23 10:45 | PC.NURSE ---
To GI Lab per manuel, IV saline locked, PICC line infusing TPN and lipids.
[2019-12-23] MEDS: LACTATED RINGERS 1,000 ML 150 ML IV CONT (10:54)
--- NOTE | 2019-12-23 10:56 | WPDANESEPPF ---
Anes - Initial Pre Proc Eval Procedure: Operation Date: 12/06/19 15:00 Proposed Procedures p Exploratory Laparotomy for Small Bowel Obstruction - Justin Lucas MD Operation Date: 12/16/19 11:00 Proposed Procedures p Colonoscopy - Feliciano Brigth DO Operation Date: 12/23/19 11:00 Proposed Procedures p Colonoscopy with Decompression Tube - Feliciano Bright DO Date/Time: 12/23/19 10:56 Surgeon: Mary Ann Ennis PA-C Pre Op Diagnosis: Small bowel obstruction Patient Data Age: 79 Gender: F Height: 5 ft 6 in Weight: 122.4 kg Last Vital Signs Temp 36.5 C 12/23/19 10:50 Pulse 92 12/23/19 10:50 Resp 27 H 12/23/19 10:50 BP 128/69 12/23/19 10:50 Pulse Ox 92 12/23/19 10:50 Allergies Allergy/AdvReac Type Severity Reaction Status Date / Time iohexol Allergy Intermediate itchey Verified 12/06/19 14:13 throat and ears Cephalosporins Allergy Mild HIVES Verified 12/06/19 14:13 rofecoxib Allergy Mild HEADACHES Verified 12/06/19 14:13 clindamycin Allergy Unknown Unknown Verified 12/06/19 14:13 doxycycline Allergy Unknown Itching Verified 12/06/19 14:13 Penicillins Allergy Unknown Hives Verified 12/06/19 14:13 risedronate sodium Allergy Unknown eye Verified 12/06/19 14:13 inflammation Home Medications Medication Instructions Recorded Confirmed Type glimepiride 2 mg tablet 2 mg PO QAM #90 tablet 09/07/19 12/06/19 Rx levothyroxine 112 mcg tablet 112 mcg PO DAILY #90 tablet 09/07/19 12/06/19 Rx rosuvastatin 40 mg tablet 40 mg PO DAILY #90 tablet 11/14/19 12/06/19 Rx hydrochlorothiazide 12.5 mg tablet 12.5 mg PO DAILY tablet 11/24/19 12/06/19 History hydrocodone 5 mg-acetaminophen 325 1 tablet PO Q6H PRN #50 tablet 11/24/19 12/06/19 Rx mg tablet lisinopril 20 mg tablet 20 mg PO BID tablet 11/24/19 12/06/19 History trazodone 50 mg tablet 50 - 100 mg PO HS PRN tablet 11/24/19 12/06/19 History levofloxacin 500 mg tablet 500 mg PO DAILY #10 tablet 11/28/19 12/06/19 Rx albuterol sulfate 1 - 2 puff INHALATION Q6-8H PRN 12/01/19 12/06/19 History Laboratory Tests 12/22/19 12/22/19 12/22/19 12:18 14:21 17:17 WBC RBC Hgb Hct MCV MCH MCHC RDW Plt Count MPV Sodium Potassium Chloride Carbon Dioxide BUN Creatinine Estim Creat Clear Calc Estimated GFR Glucose POC Capillary Glucose 269 mg/dl H mg/dl 247 mg/dl H mg/dl (65-105) (65-105) Calcium Phosphorus 2.8 mg/dL mg/dL (2.5-4.5) Magnesium 12/22/19 12/23/19 12/23/19 20:22 00:07 05:48 WBC 14.4 K/mm3 H K/mm3 (4.5-10.0) RBC 2.60 M/mm3 L M/mm3 (4.2-5.4) Hgb 8.2 g/dL L g/dL (12.0-15.0) Hct 24.2 % L % (37.0-47.0) MCV 93.1 fl fl (80-100) MCH 31.5 pg pg (26-34) MCHC 33.9 g/dl g/dl (32-36) RDW 13.9 % % (11.5-14.5) Plt Count 314 k/mm3 k/mm3 (150-375) MPV 10.7 fl H fl (7.4-10.4) Sodium Potassium Chloride Carbon Dioxide BUN Creatinine Estim Creat Clear Calc Estimated GFR Glucose POC Capillary Glucose 218 mg/dl H mg/dl 282 mg/dl H mg/dl (65-105) (65-105) Calcium Phosphorus Magnesium 12/23/19 12/23/19 05:48 05:59 WBC RBC Hgb Hct MCV MCH MCHC RDW Plt Count MPV Sodium 126 mmol/L L mmol/L (137-145) Potassium 3.7 mmol/L mmol/L (3.4-5.0) Chloride 96 mmol/L L mmol/L (98-107) Carbon Dioxide 28 mmol/L mmol/L (22-30) BUN 33 mg/dL H mg/dL (7-17) Creatini
--- NOTE | 2019-12-23 11:02 | WPDHPUPDATE1 ---
History and Physical Update Update Date/Time: 12/23/19 11:02 History and Physical has been reviewed, including an updated exam of the patient. There are NO changes in the patient's condition. Risks, benefits, and alternatives have been discussed and questions answered. Patient agrees to proceed with procedure.
--- NOTE | 2019-12-23 11:12 | SUR.OPER ---
Small open red area on patients bottom noted.
--- NOTE | 2019-12-23 11:37 | PCNFU ---
Nutrition Follow-Up Complete: Inadequate Oral Intake as related to Diarrhea as evidenced by poor po intake reported and weight loss of 6 ibs in 1 week. 2 BM reported today. Adequate intake of at least 75% of meals/supplements Goal: limited progress towards goal. Pt current nutrition is TPN. Nutrition recommendation: Agree Last recorded weight is 122.4 kg. Bowel Motility:+BM 12/21 Labs Reviewed:Na 126,Glu 216,Hct 24.2,Hgb 8.2 Meds Noted:Novolog,Levimer,Crestor Additional Notes: Patient currently NPO for colonoscopy with decompensation. Patient having abdominal distention. Nutrition continues with Clinimix at 50ml/hr with 250 ml of 20% Emulsion providing an additional 1352 kcals and 60 gms protein. If patient remains NPO would consider increasing TPN to 60 ml/hr to better meet estimated calorie needs. Monitoring: RD will monitor every Thursday and Thursday.
--- NOTE | 2019-12-23 11:39 | SUR.PHASEII ---
COLON DECOMPRESSION TUBE SET TO MEDIUM INTERMITTENT SUCTION
--- NOTE | 2019-12-23 12:01 | PCOTNOTE ---
Attempted therapy session with patient, but patient was out of room for procedure.
[2019-12-23 12:07] LABS: Glucose Point of Care 198 (65-105)
[2019-12-23 12:07] LABS: Glucose Point of Care 196 (65-105)
--- NOTE | 2019-12-23 12:12 | PC.NURSE ---
Patient returned from GI lab via stretcher with colon decompression tube in place.
[2019-12-23] MEDS: ENOXAPARIN 30 MG/0.3 ML SYRINGE SUB-Q (12:44)
[2019-12-23] MEDS: INSULIN DETEMIR 100 UNITS/ML 18 UNITS SUB-Q (12:44)
--- NOTE | 2019-12-23 13:39 | PM.TDS ---
Transfer Discharge Sum: Prov Provider Date of admission: 12/02/19 10:20 Primary care physician: Feliciano Bright DO Admitting clinician: Jeovanny Rush MD Consults: 12/03/19 Consult to Physician Routine Consulting Provider: Justin Lucas lime kiln and recausticizing operator/MD group to consult: General surgery Reason for consultation: Abdominal distention and diarrhea, CT suspicious for obstruction 12/04/19 Consult to Physician Routine Comment: Consulting Provider: Dr. Bright lime kiln and recausticizing operator/MD group to consult: Gastroenterology Reason for consultation: Colonic ileus 12/07/19 07:13 Consult to Dietitian Routine Reason for Consult:: TPN 12/08/19 Consult to Physician Routine Consulting Provider: Mira Sampson lime kiln and recausticizing operator/MD group to consult: Dr. 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 Status: Acute (2) Acute respiratory failure: Qualifiers: Respiratory failure complication: hypoxia and hypercapnia Qualified Code(s): J96.01 - Acute respiratory failure with hypoxia; J96.02 - Acute respiratory failure with hypercapnia Code(s): J96.00 - Acute respiratory failure, unspecified whether with hypoxia or hypercapnia Status: Acute (3) Asthma: Qualifiers: Asthma complication type: uncomplicated Asthma persistence: unspecified Asthma severity: unspecified severity Qualified Code(s): J45.909 - Unspecified asthma, uncomplicated Code(s): J45.909 - Unspecified asthma, uncomplicated Status: Chronic (4) Diarrhea: Qualifiers: Diarrhea type: unspecified type Qualified Code(s): R19.7 - Diarrhea, unspecified Code(s): R19.7 - Diarrhea, unspecified Status: Resolved (5) Acute on chronic renal failure: Qualifiers: Acute renal failure type: unspecified Chronic kidney disease stage: stage 3 (moderate) Qualified Code(s): N17.9 - Acute kidney failure, unspecified; N18.3 - Chronic kidney disease, stage 3 (moderate) Code(s): N17.9 - Acute kidney failure, unspecified; N18.9 - Chronic kidney disease, unspecified Status: Resolved (6) Benign essential hypertension: Code(s): I10 - Essential (primary) hypertension Status: Chronic (7) DM type 2 (diabetes mellitus, type 2): Qualifiers: Chronic kidney disease stage: stage 3 (moderate) Diabetes mellitus complication detail: with chronic kidney disease Diabetes mellitus complication status: with kidney complications Diabetes mellitus extermination inspector insulin use: without halfway use Qualified Code(s): E11.22 - Type 2 diabetes mellitus with diabetic chronic kidney disease; N18.3 - Chronic kidney disease, stage 3 (moderate) Code(s): E11.9 - Type 2 diabetes mellitus without complications Status: Chronic (8) Hypothyroidism (acquired): Code(s): E03.9 - Hypothyroidism, unspecified Status: Acute (9) Tachycardia: Code(s): R00.0 - Tachycardia, unspecified Status: Resolved (10) Protein-calorie malnutrition, moderate: Code(s): E44.0 - Moderate protein-calorie malnutrition Status: Acute (11) Abnormal CT scan, kidney: Code(s): R93.429 - Abnormal radiologic findings on diagnostic imaging of unspecified kidney Status: Acute Assessment and Plan: CT scan performed on 12/03/19 reveals incidental finding of irregularity to both kidney margins which cannot exclude an underlying solid mass. CT chest wo contrast on 12/08/19 showing 2.3cm right renal mass not compatible with a simple renal cyst. A renal US was performed on 11/24/[address] Zarate shows small right renal cysts. Defer further testing if indicated to PCP. (12) Pulmonary nodule: Code(s)
[2019-12-23] MEDS: MAGNESIUM OXIDE 400 MG TABLET PO (13:55)
[2019-12-23] MEDS: ROSUVASTATIN 10 MG TABLET 40 MG PO (13:55)
[2019-12-23] MEDS: PANTOPRAZOLE 40 MG TABLET PO (13:55)
--- NOTE | 2019-12-23 14:15 | PC.NURSE ---
Called report to MELISA Carrasco at [facility]. All questions and concerns answered at this time.
--- NOTE | 2019-12-23 15:47 | PCOTNOTE ---
Attempted to see patient this p.m. Patient asleep upon entry and was easily aroused. When asked to participate in OT session, patient declined stating, Probably not. I'm exhausted. Patient refuses OT session this date. Continue per Plan of Care.
--- NOTE | 2019-12-23 17:48 | PC.NURSE ---
Patient to [facility] via [facility]. PIV saline locked and PICC line infusing TPN and lipids. Patient's NG tube and colon decompression tube clamped at this time. Call to unit at [facility] patient will be on her way.
== END 2019-12-23 17:30 | disposition short-term general hospital (02) | DRG 353 ==
LOC: ANHED 17:51 → ANH3MED 18:56 → ANH3MEDSUR 20:01 → ANHIMU 12-13 06:44 → ANH2MED 12-22 13:50 → ANH3MEDSUR 12-26 12:01 → ANHICU 12-26 12:01 → ANHIMU 12-26 12:01
PROVIDERS: Emergency Medicine; Family Medicine; Internal Medicine; Internal Medicine Critical Care Medicine; Physician Assistant; Surgery; Admitting Provider Internal Medicine; Emergency Provider Emergency Medicine; PCP Internal Medicine Gastroenterology; Visit Provider Physician Assistant
PROC: 0WQF0ZZ Repair Abdominal Wall, Open Approach (ICD-10-PCS; CPT 49000; principal; 2019-12-06 15:00)
PROC: 0DJD8ZZ Inspection of Lower Intestinal Tract, Via Natural or Artificial Opening Endoscopic (ICD-10-PCS; CPT 45378; principal; 2019-12-16 11:00)
DX: K59.8 Other specified functional intestinal disorders (principal); J96.01 Acute respiratory failure with hypoxia; J96.02 Acute respiratory failure with hypercapnia; N17.9 Acute kidney failure, unspecified; E87.1 Hypo-osmolality and hyponatremia; J98.11 Atelectasis; Z68.41 Body mass index [BMI] 40.0-44.9, adult; E44.0 Moderate protein-calorie malnutrition; I47.1 Supraventricular tachycardia; N18.3 Chronic kidney disease, stage 3 (moderate); E86.9 Volume depletion, unspecified; T50.905A Adverse effect of unspecified drugs, medicaments and biological substances, initial encounter; Z86.718 Personal history of other venous thrombosis and embolism; Z90.710 Acquired absence of both cervix and uterus; Z96.651 Presence of right artificial knee joint; Z85.42 Personal history of malignant neoplasm of other parts of uterus; M06.9 Rheumatoid arthritis, unspecified; H26.9 Unspecified cataract; Z86.010 Personal history of colon polyps; L30.9 Dermatitis, unspecified; J44.9 Chronic obstructive pulmonary disease, unspecified; I12.9 Hypertensive chronic kidney disease with stage 1 through stage 4 chronic kidney disease, or unspecified chronic kidney disease; E83.42 Hypomagnesemia; Z87.891 Personal history of nicotine dependence; M48.54XD Collapsed vertebra, not elsewhere classified, thoracic region, subsequent encounter for fracture with routine healing; E66.01 Morbid (severe) obesity due to excess calories; E78.5 Hyperlipidemia, unspecified; E03.9 Hypothyroidism, unspecified; E86.0 Dehydration; K42.9 Umbilical hernia without obstruction or gangrene; F41.9 Anxiety disorder, unspecified; E11.40 Type 2 diabetes mellitus with diabetic neuropathy, unspecified; R91.1 Solitary pulmonary nodule; E11.65 Type 2 diabetes mellitus with hyperglycemia; R93.429 Abnormal radiologic findings on diagnostic imaging of unspecified kidney; E11.22 Type 2 diabetes mellitus with diabetic chronic kidney disease
CPT/HCPCS: 36415; 36569; 36600; 51701; 71045; 71046; 71250; 74018; 74019; 74176; 74250; 74270; 78582; 80048; 80053; 81001; 81050; 82375; 82570; 82607; 82728; 82746; 82805; 83050; 83540; 83605; 83690; 83735; 83880; 83935; 84100; 84156; 84300; 84436; 84443; 84466; 84478; 84481; 84484; 85025; 85027; 85380; 85610; 85730; 86038; 86140; 86644; 86645; 86664; 86665; 86695; 86696; 86787; 86850; 86900; 86901; 87040; 87081; 87324; 87804; 93005; 93970; 94002; 94003; 94640; 94660; 94667; 94668; 96361; 96365; 96366; 96367; 97110; 97116; 97161; 97165; 97530; 97535; 99285; A9270; A9540; A9558; C1751; C9113; G0378; J0330; J1170; J1364; J1650; J1815; J1940; J1956; J2405; J2704; J2710; J2765; J2920; J3475; J3480; J7030; J7040; J7120

== ENCOUNTER 2020-04-17 08:56 | Outpatient (CLI) | payer MEDICARE, BC, SELFPAY ==
[2020-04-17 09:32] LABS: Blood Urea Nitrogen 20 mg/dL (7-17); Calcium 9.1 mg/dL (8.4-10.2); Carbon Dioxide 29 mmol/L (22-30); Chloride 99 mmol/L (98-107); Cholesterol 195 mg/dL (0-200); Estimated Glomerular Filt Rate 26; Glucose 96 mg/dL (65-105); HDL Direct 41 mg/dL; Potassium 4.2 mmol/L (3.4-5.0); Sodium 135 mmol/L (137-145); Triglycerides 254 mg/dL (<150)
[2020-04-17 09:42] LABS: LDL Cholesterol Direct 96 mg/dL
[2020-04-17 09:59] LABS: Free T4 Free Thyroxine 2.01 ng/mL (0.78-2.19)
== END 2020-04-17 08:57 | disposition home or self-care (01) ==
PROVIDERS: PCP Internal Medicine; Visit Provider Internal Medicine
DX: E78.2 Mixed hyperlipidemia (principal); E03.9 Hypothyroidism, unspecified; I10 Essential (primary) hypertension
CPT/HCPCS: 36415; 80048; 80061; 84439; 84443

== ENCOUNTER 2020-04-20 09:14 | Outpatient (CLI) | payer MEDICARE, BC, SELFPAY ==
--- NOTE | ~2020-04-20 | CT_ITS ---
EXAMINATION: CT chest wo con DATE: 04/20/2020 09:56 INDICATION: Solitary pulmonary nodule TECHNIQUE: Computed tomography (CT) of the chest was performed without intravenous contrast. The dose -length product (DLP) was 341.41 mGy-cm. Automated exposure control and iterative reconstruction tech nique were employed. COMPARISON: 12/08/2019 FINDINGS: The previously described pleural-based nodule in the superior segment of the left lower lob e is no longer evident. No suspicious pulmonary nodule is identified. There is mild atelectasis. No p leural effusion or pneumothorax is present. No pathologically enlarged thoracic lymph nodes are ident ified. The heart size is normal. There is severe thoracic spondylosis. There is a 2.6 cm cyst of the liver. A partially imaged 2.2 cm cyst is seen in the right kidney upper pole. IMPRESSION: 1. Resolved right lower lobe nodule, consistent with resolved atelectasis or infection/inflammation. Reviewed, dictated and finalized at location A. IMPRESSION: 1. Resolved right lower lobe nodule, consistent with resolved atelectasis or in fection/inflammation.
== END 2020-04-20 09:15 | disposition home or self-care (01) ==
LOC: ANHIMG 09:16
PROVIDERS: PCP Internal Medicine; Visit Provider Internal Medicine
DX: R91.1 Solitary pulmonary nodule (principal)
CPT/HCPCS: 71250

== ENCOUNTER 2020-06-15 10:28 | Outpatient (CLI) | payer MEDICARE, BC, SELFPAY ==
[2020-06-15 11:41] LABS: Free T4 Free Thyroxine 2.36 ng/mL (0.78-2.19)
== END 2020-06-15 10:29 | disposition home or self-care (01) ==
LOC: ANHLAB 10:33
PROVIDERS: PCP Internal Medicine; Visit Provider Internal Medicine
DX: E03.9 Hypothyroidism, unspecified (principal)
CPT/HCPCS: 36415; 84439; 84443

== ENCOUNTER → 2020-07-02 10:19 | Outpatient (CLI) | payer MEDICARE, BC, SELFPAY ==
--- NOTE | ~2020-07-02 | MM_ITS ---
EXAMINATION: MM screening [facility] BI w leydi HISTORY: Screening TECHNIQUE: Craniocaudal and mediolateral oblique 3-D tomosynthesis images were obtained and synthetic 2-D images were generated. CAD analysis was submitted and interpreted. COMPARISON: Comparison to multiple prior studies sequentially, with oldest reviewed study dated 02/15. BREAST PARENCHYMAL COMPOSITION: There are scattered areas of fibroglandular density. FINDINGS: Stable architectural distortion in the right breast, presumably from previous benign biopsy . There is no evidence of suspicious mass, calcification, or architectural distortion to suggest tanya gnancy in either breast. There has been no suspicious interval change. IMPRESSION: 1. No mammographic evidence of malignancy. 2. Recommend routine screening mammography in one year. BI-RADS Category 2: Benign finding(s). Reviewed, dictated and finalized at location A.
== END ==
PROVIDERS: PCP Internal Medicine; Visit Provider Obstetrics & Gynecology
DX: Z12.31 Encounter for screening mammogram for malignant neoplasm of breast (principal)
CPT/HCPCS: 77063; 77067

== ENCOUNTER 2020-07-17 10:04 | Outpatient (CLI) | payer MEDICARE, BC, SELFPAY ==
[2020-07-17 11:35] LABS: Free T4 Free Thyroxine 1.13 ng/mL (0.78-2.19)
== END 2020-07-17 10:05 | disposition home or self-care (01) ==
LOC: ANHLAB 10:06
PROVIDERS: PCP Internal Medicine; Visit Provider Internal Medicine
DX: E03.9 Hypothyroidism, unspecified (principal)
CPT/HCPCS: 36415; 84439; 84443

== ENCOUNTER 2020-08-27 09:15 | Outpatient (CLI) | payer MEDICARE, BC, SELFPAY ==
[2020-08-27 10:44] LABS: Free T4 Free Thyroxine 1.94 ng/mL (0.78-2.19)
== END 2020-08-27 09:16 | disposition home or self-care (01) ==
PROVIDERS: PCP Internal Medicine; Visit Provider Internal Medicine
DX: E03.9 Hypothyroidism, unspecified (principal)
CPT/HCPCS: 36415; 84439; 84443

== ENCOUNTER 2020-09-04 12:07 | Outpatient (CLI) | payer MEDICARE, BC, SELFPAY ==
[2020-09-04 12:44] LABS: Basophils Percent Auto 0.6 % (0.2-1.2); Eosinophils Absolute Auto 0.2 K/mm3 (0-0.3); Eosinophils Percent Auto 3.5 % (0-4.4); Hematocrit 33.9 % (37.0-47.0); Hemoglobin 10.9 g/dL (12.0-15.0); Immature Granulocyte Absolute 0.03 K/mm3 (0.00-0.031); Immature Granulocyte Percent A 0.5 % (0-0.5); Lymphocytes Absolute Auto 1.09 K/mm3 (0.9-3.2); Lymphocytes Percent Auto 16.5 % (18.3-44.2); Mean Corpuscular HGB Conc 32.2 g/dl (32-36); Mean Corpuscular Hemoglobin 30.6 pg (26-34); Mean Corpuscular Volume 95.2 fl (80-100); Mean Platelet Volume 10.4 fl (7.4-10.4); Monocytes Absolute Auto 0.7 K/mm3 (0.1-0.6); Monocytes Percent Auto 9.8 % (2.6-8.5); Neutrophils Absolute Auto 4.6 K/mm3 (1.3-6.7); Neutrophils Percent Auto 69.1 % (45.5-73.1); Platelet Count Result 250 k/mm3 (150-375); Red Blood Count 3.56 M/mm3 (4.2-5.4); Red Cell Distribution Width 14.6 % (11.5-14.5); White Blood Count 6.6 K/mm3 (4.5-10.0)
[2020-09-04 12:53] LABS: Hemoglobin A1C 4.9 % (<5.7)
[2020-09-04 13:04] LABS: Alanine Aminotransferase 14 U/L (4-35); Albumin Level 3.7 g/dL (3.5-5.1); Alkaline Phosphatase 56 U/L (38-126); Anion Gap 8 mmol/L (8-16); Aspartate Amino Transferase 22 U/L (14-36); Bilirubin,Total 0.5 mg/dL (0.2-1.3); Blood Urea Nitrogen 47 mg/dL (7-17); Calcium 8.9 mg/dL (8.4-10.2); Carbon Dioxide 29 mmol/L (22-30); Chloride 102 mmol/L (98-107); Estimated Glomerular Filt Rate 22; Glucose 117 mg/dL (65-105); Potassium 4.2 mmol/L (3.4-5.0); Sodium 139 mmol/L (137-145)
[2020-09-04 13:40] LABS: Free T4 Free Thyroxine 1.96 ng/mL (0.78-2.19)
[2020-09-07 22:38] LABS: Vitamin D 1,25 (OH)2 Total 14 pg/mL (18-72); Vitamin D2 1,25 (OH)2 <8 pg/mL; Vitamin D3 1,25 (OH)2 14 pg/mL
[2020-09-09 01:41] LABS: Homocysteine 36.5 umol/L (<10.4)
== END 2020-09-04 12:08 | disposition home or self-care (01) ==
LOC: ANHLAB 12:09
PROVIDERS: PCP Internal Medicine; Visit Provider Internal Medicine
DX: E55.9 Vitamin D deficiency, unspecified (principal); E03.9 Hypothyroidism, unspecified; E11.22 Type 2 diabetes mellitus with diabetic chronic kidney disease; N18.30 Chronic kidney disease, stage 3 unspecified; I12.9 Hypertensive chronic kidney disease with stage 1 through stage 4 chronic kidney disease, or unspecified chronic kidney disease; R79.89 Other specified abnormal findings of blood chemistry
CPT/HCPCS: 36415; 80053; 82652; 83036; 83090; 84439; 84443; 85025

== ENCOUNTER 2020-11-06 13:26 | Outpatient (CLI) | payer MEDICARE, BC, SELFPAY ==
[2020-11-06 14:05] LABS: Basophils Percent Auto 0.5 % (0.2-1.2); Eosinophils Absolute Auto 0.3 K/mm3 (0-0.3); Eosinophils Percent Auto 3.9 % (0-4.4); Hematocrit 32.1 % (37.0-47.0); Hemoglobin 10.6 g/dL (12.0-15.0); Immature Granulocyte Absolute 0.03 K/mm3 (0.00-0.031); Immature Granulocyte Percent A 0.4 % (0-0.5); Lymphocytes Absolute Auto 1.24 K/mm3 (0.9-3.2); Lymphocytes Percent Auto 16.5 % (18.3-44.2); Mean Corpuscular Hemoglobin 32.4 pg (26-34); Mean Corpuscular Volume 98.2 fl (80-100); Mean Platelet Volume 10.2 fl (7.4-10.4); Monocytes Absolute Auto 0.7 K/mm3 (0.1-0.6); Monocytes Percent Auto 9.7 % (2.6-8.5); Neutrophils Absolute Auto 5.2 K/mm3 (1.3-6.7); Platelet Count Result 231 k/mm3 (150-375); Red Blood Count 3.27 M/mm3 (4.2-5.4); Red Cell Distribution Width 14.6 % (11.5-14.5); White Blood Count 7.5 K/mm3 (4.5-10.0)
[2020-11-06 14:20] LABS: Alanine Aminotransferase 14 U/L (4-35); Albumin Level 3.8 g/dL (3.5-5.1); Alkaline Phosphatase 54 U/L (38-126); Anion Gap 8 mmol/L (8-16); Aspartate Amino Transferase 19 U/L (14-36); Bilirubin,Total 0.4 mg/dL (0.2-1.3); Blood Urea Nitrogen 59 mg/dL (7-17); Calcium 8.9 mg/dL (8.4-10.2); Carbon Dioxide 24 mmol/L (22-30); Chloride 109 mmol/L (98-107); Cholesterol 194 mg/dL (0-200); Estimated Glomerular Filt Rate 18; Glucose 97 mg/dL (65-105); HDL Direct 38 mg/dL; Potassium 4.5 mmol/L (3.4-5.0); Sodium 141 mmol/L (137-145); Triglycerides 420 mg/dL (<150)
[2020-11-06 14:31] LABS: LDL Cholesterol Direct 85 mg/dL
[2020-11-09 15:29] LABS: Apolipoprotein B 100 mg/dL (<90)
== END 2020-11-06 13:27 | disposition home or self-care (01) ==
PROVIDERS: PCP Internal Medicine; Visit Provider Internal Medicine
DX: E78.2 Mixed hyperlipidemia (principal); I10 Essential (primary) hypertension; E11.22 Type 2 diabetes mellitus with diabetic chronic kidney disease; N18.30 Chronic kidney disease, stage 3 unspecified
CPT/HCPCS: 36415; 80053; 80061; 82172; 85025

== ENCOUNTER 2020-11-21 10:44 | Outpatient (CLI) | payer MEDICARE, BC, SELFPAY ==
--- NOTE | ~2020-11-21 | US_ITS ---
EXAMINATION: US renal BI DATE: 11/21/2020 11:24 INDICATION: Elevated renal function tests TECHNIQUE: Multiple ultrasound grayscale images of the kidneys were obtained. COMPARISON: 11/24/2019 FINDINGS: The right kidney measures 11.5 x 4.1 x 5.0 cm. The left kidney measures 11.0 x 5.1 x 5.9 cm. The kidn eys demonstrate normal echogenicity. Are 3 anechoic cysts in the right kidney measuring 2.4 cm at the upper pole, a smaller 2.0 cm exophytic cyst at the lower pole and a 1.9 cm Bosniak 2 cyst with singl e thin internal septation at the mid right kidney. 1.3 cm anechoic cyst at the mid left kidney. There is no hydronephrosis in either kidney. No stones identified. The bladder appears normal but is near ly completely decompressed which limits evaluation.. IMPRESSION: 1. Bilateral renal cysts. Otherwise normal kidneys with no hydronephrosis. Reviewed, dictated and finalized at location A. PRESSER
== END 2020-11-21 10:45 | disposition home or self-care (01) ==
PROVIDERS: PCP Internal Medicine; Visit Provider Internal Medicine
DX: R79.89 Other specified abnormal findings of blood chemistry (principal); N28.1 Cyst of kidney, acquired
CPT/HCPCS: 76775

== ENCOUNTER 2020-12-04 09:25 | Outpatient (CLI) | payer MEDICARE, BC, SELFPAY | END 2020-12-04 09:26 | disposition home or self-care (01) | LOC: ANHCOVIDVC 09:25 | PROVIDERS: PCP Internal Medicine | DX: Z23 Encounter for immunization (principal) | CPT/HCPCS: 0001A; 91300 ==

== ENCOUNTER 2020-12-25 09:45 | Outpatient (CLI) | payer MEDICARE, BC, SELFPAY | END 2020-12-25 09:46 | disposition home or self-care (01) | LOC: ANHCOVIDVC 09:45 | PROVIDERS: PCP Internal Medicine | DX: Z23 Encounter for immunization (principal) | CPT/HCPCS: 0002A; 91300 ==

== ENCOUNTER 2021-01-03 09:55 | Outpatient (CLI) | payer MEDICARE, BC, SELFPAY ==
[2021-01-03 10:31] LABS: Potassium 4.1 mmol/L (3.4-5.0)
[2021-01-03 10:36] LABS: Alanine Aminotransferase 13 U/L (4-35); Albumin Level 3.9 g/dL (3.5-5.1); Alkaline Phosphatase 60 U/L (38-126); Anion Gap 6 mmol/L (8-16); Aspartate Amino Transferase 18 U/L (14-36); Bilirubin,Total 0.2 mg/dL (0.2-1.3); Blood Urea Nitrogen 36 mg/dL (7-17); Calcium 8.8 mg/dL (8.4-10.2); Carbon Dioxide 27 mmol/L (22-30); Chloride 106 mmol/L (98-107); Cholesterol 202 mg/dL (0-200); Estimated Glomerular Filt Rate 21; Glucose 97 mg/dL (65-105); HDL Direct 36 mg/dL; Sodium 139 mmol/L (137-145); Triglycerides 249 mg/dL (<150)
[2021-01-03 10:43] LABS: LDL Cholesterol Direct 94 mg/dL
[2021-01-03 10:47] LABS: Hemoglobin A1C 5.2 % (<5.7)
[2021-01-03 14:31] LABS: Basophils Absolute Auto 0.1 K/mm3 (0.0-0.1); Basophils Percent Auto 0.6 % (0.2-1.2); Eosinophils Absolute Auto 0.4 K/mm3 (0-0.3); Eosinophils Percent Auto 4.8 % (0-4.4); Hematocrit 30.8 % (37.0-47.0); Hemoglobin 10.1 g/dL (12.0-15.0); Immature Granulocyte Absolute 0.11 K/mm3 (0.00-0.031); Immature Granulocyte Percent A 1.4 % (0-0.5); Lymphocytes Absolute Auto 1.46 K/mm3 (0.9-3.2); Lymphocytes Percent Auto 18.6 % (18.3-44.2); Mean Corpuscular HGB Conc 32.8 g/dl (32-36); Mean Corpuscular Hemoglobin 31.6 pg (26-34); Mean Corpuscular Volume 96.3 fl (80-100); Monocytes Absolute Auto 0.6 K/mm3 (0.1-0.6); Monocytes Percent Auto 8.1 % (2.6-8.5); Neutrophils Absolute Auto 5.2 K/mm3 (1.3-6.7); Neutrophils Percent Auto 66.5 % (45.5-73.1); Platelet Count Result 276 k/mm3 (150-375); White Blood Count 7.9 K/mm3 (4.5-10.0)
[2021-01-08 04:15] LABS: Vitamin D 1,25 (OH)2 Total 17 pg/mL (18-72); Vitamin D2 1,25 (OH)2 <8 pg/mL; Vitamin D3 1,25 (OH)2 17 pg/mL
[2021-01-09 11:07] LABS: Homocysteine 16.8 umol/L (<10.4)
== END 2021-01-03 09:56 | disposition home or self-care (01) ==
PROVIDERS: PCP Internal Medicine; Visit Provider Internal Medicine
DX: E55.9 Vitamin D deficiency, unspecified (principal); Z79.899 Other long term (current) drug therapy; E03.9 Hypothyroidism, unspecified; E11.22 Type 2 diabetes mellitus with diabetic chronic kidney disease; R79.89 Other specified abnormal findings of blood chemistry; E78.2 Mixed hyperlipidemia; I12.9 Hypertensive chronic kidney disease with stage 1 through stage 4 chronic kidney disease, or unspecified chronic kidney disease; N18.30 Chronic kidney disease, stage 3 unspecified
CPT/HCPCS: 36415; 80053; 80061; 82652; 83036; 83090; 84439; 84443; 85025

== ENCOUNTER 2021-05-31 10:24 | Outpatient (CLI) | payer MEDICARE, BC, SELFPAY ==
[2021-05-31 11:17] LABS: Alanine Aminotransferase 16 U/L (4-35); Alkaline Phosphatase 70 U/L (38-126); Anion Gap 8 mmol/L (8-16); Aspartate Amino Transferase 20 U/L (14-36); Bilirubin,Total 0.3 mg/dL (0.2-1.3); Blood Urea Nitrogen 36 mg/dL (7-17); Calcium 9.2 mg/dL (8.4-10.2); Carbon Dioxide 29 mmol/L (22-30); Chloride 101 mmol/L (98-107); Cholesterol 216 mg/dL (0-200); Estimated Glomerular Filt Rate 19; Glucose 93 mg/dL (65-110); HDL Direct 41 mg/dL; Potassium 4.9 mmol/L (3.4-5.0); Sodium 138 mmol/L (137-145); Triglycerides 246 mg/dL (<150)
[2021-05-31 11:28] LABS: LDL Cholesterol Direct 104 mg/dL
[2021-05-31 11:31] LABS: Add Urine Microscopic? YES; Appearance Urine Cloudy (Clear); Bilirubin Urine Negative (Negative); Blood Urine 3+ (Negative); Color Urine Yellow (Yellow); Glucose Urine UA Negative (Negative); Ketones Urine Negative (Negative); Leukocyte Esterase Ur 3+ LEU/UL (NEGATIVE); Nitrate Urine Negative (Negative); Protein Urine 2+ mg/dL (Negative); RBC Urine >75 /hpf (0-2); Specific Grav Ur 1.009 (1.001-1.035); Squamous Epithelial Cell Urine Rare /hpf (Few); Transitional Epi Cells Urine Rare /hpf (None Seen); Urobilinogen Urine Negative mg/dL (<2.0); WBC Urine >75 /hpf (0-3)
[2021-05-31 11:51] LABS: Free T4 Free Thyroxine 1.62 ng/mL (0.78-2.19)
[2021-06-03 19:52] LABS: Vitamin D 1,25 (OH)2 Total 18 pg/mL (18-72); Vitamin D2 1,25 (OH)2 <8 pg/mL; Vitamin D3 1,25 (OH)2 18 pg/mL
== END 2021-05-31 10:25 | disposition home or self-care (01) ==
LOC: ANHLAB 10:29
PROVIDERS: PCP Internal Medicine; Visit Provider Internal Medicine
DX: E55.9 Vitamin D deficiency, unspecified (principal); N18.2 Chronic kidney disease, stage 2 (mild); I12.9 Hypertensive chronic kidney disease with stage 1 through stage 4 chronic kidney disease, or unspecified chronic kidney disease; E03.9 Hypothyroidism, unspecified; E78.2 Mixed hyperlipidemia
CPT/HCPCS: 36415; 80053; 80061; 81001; 82652; 84439; 84443

== ENCOUNTER 2021-06-05 11:49 | Outpatient (CLI) | payer MEDICARE, BC, SELFPAY ==
[2021-06-05 13:47] LABS: Hemoglobin A1C 5.5 % (<5.7)
== END 2021-06-05 11:50 | disposition home or self-care (01) ==
LOC: ANHLAB 11:50
PROVIDERS: PCP Internal Medicine; Visit Provider Internal Medicine
DX: N18.30 Chronic kidney disease, stage 3 unspecified (principal); E11.22 Type 2 diabetes mellitus with diabetic chronic kidney disease
CPT/HCPCS: 36415; 83036

== ENCOUNTER 2021-07-15 10:39 | Outpatient (CLI) | payer MEDICARE, BC, SELFPAY ==
[2021-07-15 11:12] LABS: Add Urine Microscopic? YES; Appearance Urine Cloudy (Clear); Bilirubin Urine 1+ (Negative); Blood Urine 3+ (Negative); Color Urine Red (Yellow); Glucose Urine UA Negative (Negative); Ketones Urine Trace mg/dL (Negative); Leukocyte Esterase Ur Trace LEU/UL (Negative); Nitrate Urine Negative (Negative); Protein Urine 3+ mg/dL (Negative); Specific Grav Ur 1.025 (1.001-1.035); Urobilinogen Urine 0.2 mg/dL (<2.0); pH Urine 5.5 (5.0-9.0)
[2021-07-15 11:18] LABS: RBC Urine >75 /hpf (0-2)
[2021-07-15 11:19] LABS: Squamous Epithelial Cell Urine Few /hpf (Few); Transitional Epi Cells Urine Rare /hpf
[2021-07-15 11:20] LABS: Bacteria Urine 1+ /hpf; Mucus Urine Few /lpf
[2021-07-15 11:26] LABS: Anion Gap 9 mmol/L (8-16); Blood Urea Nitrogen 38 mg/dL (7-17); Calcium 8.8 mg/dL (8.4-10.2); Carbon Dioxide 28 mmol/L (22-30); Chloride 101 mmol/L (98-107); Estimated Glomerular Filt Rate 20; Glucose 249 mg/dL (65-110); Potassium 4.3 mmol/L (3.4-5.0); Sodium 138 mmol/L (137-145)
== END 2021-07-15 10:40 | disposition home or self-care (01) ==
LOC: ANHLAB 10:44
PROVIDERS: PCP Internal Medicine; Visit Provider Internal Medicine
DX: E11.22 Type 2 diabetes mellitus with diabetic chronic kidney disease (principal); I12.9 Hypertensive chronic kidney disease with stage 1 through stage 4 chronic kidney disease, or unspecified chronic kidney disease; N18.32 Chronic kidney disease, stage 3b; Z79.899 Other long term (current) drug therapy
CPT/HCPCS: 36415; 80048; 81001; 87086

== ENCOUNTER 2021-07-29 06:50 | Outpatient (CLI) | payer MEDICARE, BC, SELFPAY ==
--- NOTE | ~2021-07-29 | CT_ITS ---
EXAMINATION: CT abdomen pelvis wo con DATE: 07/29/2021 08:15 INDICATION: Gross hematuria TECHNIQUE: Computed tomography (CT) of the abdomen and pelvis was performed without intravenous contr ast. The dose-length product (DLP) was 1258.98 mGy-cm. Automated exposure control and iterative recon struction technique were employed. COMPARISON: 12/03/2019 FINDINGS: Minimal dependent atelectasis is present in the lung bases. The heart size is normal. Cysts of the liver measure up to 2.5 cm. The spleen, pancreas, and adrenal glands are normal. The gallblad saran is surgically absent. Simple cysts of the kidneys measure up to 2.6 cm on the right. There is an intermediate attenuation lesion of the left mid kidney which measures 10 mm. No stones are identified in the kidneys, ureters, or bladder. There is no hydronephrosis or hydroureter. No pathologically en larged abdominal or pelvic lymph nodes are identified. There is a tiny focus of gas in the urinary bl adder. In addition, there appear to be soft tissue masses in the left lateral and posterior bladder w alls measuring 2.9 and 2.2 cm, respectively. There is antegrade intramedullary neelima and interlocking i ntratrochanteric screw fixation on the left. There is severe lumbar spondylosis. IMPRESSION: 1. Two suspected bladder mass is concerning for urothelial carcinoma. Cystoscopy is recommended. 2. Small focus of gas in the urinary bladder of unclear etiology, correlate for history of catheteriz ation. 3. Indeterminate 10 mm lesion of the left kidney which could reflect proteinaceous cyst versus solid neoplasm. Reviewed, dictated and finalized at location B. IMPRESSION: 1. Two suspected bladder mass is concerning for urothelial carcinoma. Cystoscop y is recommended. 2. Small focus of gas in the urinary bladder of unclear etiology, correlate for history of catheterization. 3. Indeterminate 10 mm lesion of the left kidney which could reflect proteinace ous cyst versus solid neoplasm.
[2021-07-29 07:20] LABS: Estimated Glomerular Filt Rate 16
== END 2021-07-29 06:51 | disposition home or self-care (01) ==
PROVIDERS: PCP Internal Medicine; Visit Provider Urology
DX: R31.0 Gross hematuria (principal); N28.89 Other specified disorders of kidney and ureter
CPT/HCPCS: 74176

== ENCOUNTER 2021-07-30 09:51 | Outpatient (CLI) | payer MEDICARE, BC, SELFPAY ==
--- NOTE | 2021-07-30 09:59 | ECG_ITS ---
Measurements Intervals [place] Rate: 89 P: 71 LA: 159 QRS: 62 QRSD: 98 T: 53 QT: 338 QTc: 413 Interpretive Statements SINUS RHYTHM POSSIBLE LEFT ATRIAL ENLARGEMENT BASELINE ARTIFACT- I, II, III, AVR, AVL, AVF BORDERLINE ECG Electronically Signed On 07-30-2021 10:36:00 CDT by Alvarez Gaytan D.O.
[2021-07-30 10:38] LABS: INR 0.9; Prothrombin Time 12.4 Seconds (11.1-14.7)
[2021-07-30 10:39] LABS: Partial Thromboplastin Time 26.5 SECONDS (22.3-36.8)
== END 2021-07-30 09:52 | disposition home or self-care (01) ==
LOC: ANHSURGERY 09:56
PROVIDERS: Anesthesiology; PCP Internal Medicine; Visit Provider Urology
DX: I12.9 Hypertensive chronic kidney disease with stage 1 through stage 4 chronic kidney disease, or unspecified chronic kidney disease (principal); Z01.818 Encounter for other preprocedural examination; N18.30 Chronic kidney disease, stage 3 unspecified
CPT/HCPCS: 36415; 85610; 85730; 93005

== ENCOUNTER 2021-08-01 00:48 | Day surgery (SDC) | payer MEDICARE, BC, SELFPAY ==
[2021-07-29 13:04] VITALS: BMI 35.9
--- NOTE | 2021-07-29 13:28 | PC.NURSE ---
Report to the Outpatient Waiting Room, entrance under the green pavilion located off [facility], at time ___0845____ on date ____08/01/21___. OR Time: __1044 . - You and your visitor will be asked a series of questions to screen for COVID 19 for your protection. - A mask is required within the hospital. - Only one visitor is allowed at this time. Patient visitors will be guided where to wait when not with patient. Preoperative COVID Testing Requirements: No COVID Test needed if: (proof is required; if not received patient will have Rapid Test prior to entry) - Patient has received COVID Vaccine at least 14 days prior to procedure date or - Patient has positive COVID test result within last 90 days of surgery date. COVID Test needed if above criteria is not met If not COVID vaccinated a COVID test must be conducted within 72 hours of surgery and patient is asked to isolate self from time of testing until procedure. You will go to the [facility] for your COVID testing. The [facility] site is located at the corner of [address] [facility]. You will only be called if COVID results are positive and your surgeon may reschedule your elective surgery date. Patients may have clear liquids (water, carbonated beverages, clear teas, apple juice) until 3 hours prior to surgery with a maximum of 20 ounces. - No food from midnight until time of surgery - Infants may have breast milk until 4 hours before surgery, infant formula 6 hours prior to surgery. - Children will be allowed to drink immediately following surgery. If applicable, please bring a bottle or sippy cup to assist with drinking. Juice, water, soda, and popsicles are readily available. For infants on formula, please bring formula the day of surgery. Pacifiers are allowed. Take the following medications with a SIP of water the morning of surgery: ___LEVOTHYROXINE, ALBUTEROL INHALER NEEDED Medications to discontinue per physician ALL VITAMINS/SUPPLEMENTS 3 DAYS PRE-OP Date to take last dose 07/29/21 Please no make-up, nail tristanian, hairspray, perfume, deodorant, or body powder the day of surgery. No jewelry (including any body piercings) or valuables the day of surgery, leave them at home. Please take a shower or bath the night before, or the morning of, surgery with an antibacterial soap. Wear comfortable, loose fitting clothing. Children are encouraged to wear pajamas. - Jewelry must be removed prior to entering the operating room. Rings and piercings that are not removed may be cut off. - The hospital will not accept responsibility for valuables. - Please leave all valuables, including medications, at home the day of surgery. If you are going home after surgery, a licensed commercial relief driver must drive you home. - NO public transportation without another adult. - We recommend that an adult stay with you for 24 hours following discharge. - We also recommend that you do not drive, make important decision, drink alcoholic beverages, or take any drugs that were not prescribed by your health care provider for at least 24 hours after your discharge time. For Pediatric surgeries, we recommend two adults accompany the child home (only one inside the building at this time). Follow any additional instructions given to you from your surgeon. Telephone instructions given to ____PATIENT and asked if any additional questions and then verbalized understanding. Patient advised to call surgeon office or pre surgery nurse liaison [phone] if any additional questions.
[2021-08-01] VITALS (11 sets, daily range): BP systolic 135–172; BP diastolic 48–85; PULSE 73–100; RESP 12–181; TEMP 36.2–36.7; O2SAT 92–99; BMI 35.2
--- NOTE | 2021-08-01 06:47 | WPDHPUPDATE1 ---
History and Physical Update Update Date/Time: 08/01/21 06:47 History and Physical has been reviewed, including an updated exam of the patient. There are NO changes in the patient's condition. Risks, benefits, and alternatives have been discussed and questions answered. Patient agrees to proceed with procedure.
--- NOTE | 2021-08-01 09:49 | WPDANESEPPF ---
Anes - Initial Pre Proc Eval Procedure: Operation Date: 08/01/21 10:45 Proposed Procedures p Trans Urethral Resection Bladder Tumor with Gemcitabine Instillation - Jan Harvey MD Date/Time: 08/01/21 09:49 Surgeon: Jan Harvey MD Pre Op Diagnosis: gross hematuria, bladder CA Patient Data Age: 80 Gender: F Height: 1.63 m Weight: 95 kg Allergies Allergy/AdvReac Type Severity Reaction Status Date / Time iohexol Allergy Intermediate itchey Verified 07/29/21 13:30 throat and ears Cephalosporins Allergy Mild HIVES Verified 07/29/21 13:30 rofecoxib Allergy Mild HEADACHES Verified 07/29/21 13:30 clindamycin Allergy Unknown Unknown Verified 07/29/21 13:30 doxycycline Allergy Unknown Itching Verified 07/29/21 13:30 Penicillins Allergy Unknown Hives Verified 07/29/21 13:30 risedronate sodium Allergy Unknown eye Verified 07/29/21 13:30 inflammation Home Medications Medication Instructions Recorded Confirmed Type multivitamin 1 tablet PO DAILY 03/28/20 07/29/21 History calcium carbonate 500 mg calcium 500 mg PO DAILY 05/02/20 07/29/21 History (1,250 mg) capsule cyanocobalamin (vitamin B-12) 1,000 mcg PO DAILY 09/18/20 07/29/21 History 1,000 mcg tablet folic acid 800 mcg tablet 0.8 mg PO BID 09/18/20 07/29/21 History albuterol sulfate 90 mcg/actuation 2 inh INHALATION Q4-6H PRN #25.5 g 06/17/21 07/29/21 Rx aerosol inhaler rosuvastatin 20 mg tablet 20 mg PO DAILY #90 tablet 06/17/21 07/29/21 Rx cholecalciferol (vitamin D3) 25 50 mcg PO DAILY tablet 07/23/21 07/29/21 History mcg (1,000 unit) tablet sitagliptin 50 mg tablet 50 mg PO DAILY #90 tablet 07/26/21 07/29/21 Rx diltiazem HCl 180 mg PO HS 07/29/21 07/29/21 History fexofenadine [Indigo] 180 mg PO DAILY 07/29/21 07/29/21 History levothyroxine 125 mcg PO QAM 07/29/21 07/29/21 History trazodone 50 mg PO HS 07/29/21 07/29/21 History Patient hx anesthesia problems: none Family hx anesthesia problems: none Results Review: All pre-operative results and documents have been reviewed as part of the pre-operative evaluation. [facility] Past Medical History Medical History Anemia Asthma Back pain Benign essential hypertension BMI 32.0-32.9,adult BMI 33.0-33.9,adult BMI 35.0-35.9,adult Bronchitis Cataracts, bilateral Chronic back pain Chronic kidney disease, stage 3 With baseline creatinine between 1.2-1.4 CKD (chronic kidney disease) CKD (chronic kidney disease), stage III Colon distention Compression fracture of thoracic spine, non-traumatic COPD (chronic obstructive pulmonary disease) Cough DM type 2 (diabetes mellitus, type 2) DVT (deep venous thrombosis) LLE Eczema Elevated homocysteine Elevated serum creatinine Encounter for Medicare annual wellness exam Encounter for routine adult health examination with abnormal findings Encounter for routine adult health examination without abnormal findings Follow up Hematuria History of irritable bowel syndrome Hx of colonic polyps Hx of colonic polyps Hyperlipidemia Hypothyroid Hypothyroidism (acquired) Left wrist fracture Lipoma Melena Microscopic hematuria Marielle's syndrome On chcf drug therapy Pneumonia Renal cyst Rheumatoid arthritis Seasonal allergies Sebaceous cyst Sick euthyroidism Torn rotator cuff right Umbilical hernia Umbilical hernia Uterine cancer Vitamin D deficiency Surgical History Surgical History H/O breast biopsy bilateral H/O dilation and curettage H/O total hysterectomy History of knee replacement, total right History of orthopedic surgery left hip surgery, left femur surgery Hx of cholecystectomy Hx of tonsillectomy Family History Family History Mother Osteoporosis Father Acute myocardial infarction Social History Social History (Reviewed 08/01/21 @ 09:49 by
[2021-08-01 10:14] LABS: Glucose Point of Care 131 mg/dl (65-105)
[2021-08-01] MEDS: LACTATED RINGERS 1,000 ML 30 ML IV CONT (10:14)
[2021-08-01] MEDS: ceFAZolin 2 GM/D5W 50 ML 2 GM/50 ML BAG IVPB (11:02)
--- NOTE | 2021-08-01 11:43 | W.PM.PROC2 ---
Procedure Note - Detailed Date of Procedure 08/01/21 Pre-op Diagnosis Gross hematuria, bladder CA Post-op Diagnosis same Procedure Performed TURBT (large, 5-6cm) Surgeon Jan Harvey MD Anesthesia general Description of Procedure Patient is brought to the operative suite she was prepped and draped in routine sterile fashion while in dorsal lithotomy position after the uneventful induction of a general anesthetic. 24F resectoscope was placed in the bladder the bladder circumferentially inspected. She has two, discreet, somewhat unusual looking, solid neoplasms in her bladder. One of these measures 3-4 cm and arises in the left anterior lateral bladder wall, near the dome. A second lies in the posterior midline about 2-3 cm above her trigone. Using a 24 F resectoscope each of these was resected in its entirety, grossly. However resection of the bladder tumor base from each is sent as a separate specimen. The base and periphery cauterized. This is all done with care taken to avoid injury to the ureteral orifices. Estimated Blood Loss 5 Drains Yes Packing No Pathology yes Complications No immediate complications Condition stable Disposition PACU
--- NOTE | 2021-08-01 11:47 | W.PM.PROC2 ---
Procedure Note - Detailed Date of Procedure 08/01/21 Pre-op Diagnosis Gross hematuria, bladder CA Post-op Diagnosis same Procedure Performed Gemcitabine bladder installation Surgeon Jan Harvey MD Anesthesia none Description of Procedure With the patient in the supine position, a 16F Quiroga catheter is placed using sterile technique. Using a protective facemask, gown and double layer of gloves Gemcitabine 2gm in 100cc saline is administered through the catheter/into the bladder. The catheter is then plugged. Patient was instructed to lie supine x20min, then to roll both the left and right x20 min. each. Total dwell time will be 60 min., after which the bladder will be drained and catheter removed. Estimated Blood Loss 5 Drains No Packing No Pathology none sent Complications No immediate complications Condition stable Disposition PACU
[2021-08-01] MEDS: SODIUM CHLORIDE 0.9% IV 23.7 ML, GEMCITABINE HCL 1,000 MG BLADDER ×2 (11:54→11:55)
[2021-08-01 12:32] LABS: Glucose Point of Care 142 mg/dl (65-105)
[2021-08-01 12:32] LABS: Glucose Point of Care 138 mg/dl (65-105)
[2021-08-01] MEDS: fentaNYL CITRATE INJ (*CRX) 100 MCG/2 ML VIAL 25 MCG IV PUSH (12:51)
[2021-08-01] MEDS: SODIUM CHLORIDE 0.9% IV 250 ML BAG 150 ML IRRIGATION (13:00)
--- NOTE | 2021-08-01 13:10 | SUR.PHASEI ---
1310 -pt turned every 20 minutes x 3.
== END 2021-08-01 14:00 | disposition home or self-care (01) ==
PROVIDERS: PCP Internal Medicine; Visit Provider Urology
PROC: 0TBB8ZZ Excision of Bladder, Via Natural or Artificial Opening Endoscopic (ICD-10-PCS; CPT 52240; principal; 2021-08-01 10:45)
DX: C67.8 Malignant neoplasm of overlapping sites of bladder (principal); I12.9 Hypertensive chronic kidney disease with stage 1 through stage 4 chronic kidney disease, or unspecified chronic kidney disease; N18.30 Chronic kidney disease, stage 3 unspecified; J44.9 Chronic obstructive pulmonary disease, unspecified; D64.9 Anemia, unspecified; E11.22 Type 2 diabetes mellitus with diabetic chronic kidney disease; H26.9 Unspecified cataract; E78.5 Hyperlipidemia, unspecified; E03.9 Hypothyroidism, unspecified; M06.9 Rheumatoid arthritis, unspecified; E55.9 Vitamin D deficiency, unspecified; Z85.42 Personal history of malignant neoplasm of other parts of uterus; Z87.891 Personal history of nicotine dependence; E66.9 Obesity, unspecified; Z68.35 Body mass index [BMI] 35.0-35.9, adult; Z79.84 Long term (current) use of oral hypoglycemic drugs; Z79.51 Long term (current) use of inhaled steroids
CPT/HCPCS: 52240; 51720; 82948; 88305; A9270; J0690; J2405; J2704; J3010; J7050; J7120; J9201

== ENCOUNTER 2021-08-29 07:12 | Outpatient (CLI) | payer MEDICARE, BC, SELFPAY ==
--- NOTE | ~2021-08-29 | PE_ITS ---
EXAMINATION: PET skull to mid thigh DATE: 08/29/2021 10:06 INDICATION: Cancer of overlapping sites of bladder. TECHNIQUE: Blood glucose level was 115 mg/dL. 8.224 mCi of 18-fluorodeoxyglucose (18-FDG) was adminis tered i.v. Low dose computed tomography (CT) images were acquired from the base of the brain to the p roximal thighs for attenuation correction and anatomic localization. Automated exposure control was e mployed. Dose-length product (DLP) was 1106 mGy-cm. Positron emission tomography (PET) images were ac quired in the same distribution. COMPARISON: CT abdomen and pelvis 07/29/2021, chest CT 04/20/2020 FINDINGS: Head/neck: There is increased activity in the glottis and paraspinal muscles without abnormal CT libra elate, likely physiologic. There are no pathologically enlarged lymph nodes. There is a 3.2 cm subcut aneous cyst in left posterior neck, likely a sebaceous cyst. There is increased activity in left thyr oid lobe. Chest: The lungs demonstrate mild atelectasis. No pleural effusion. The heart size is normal. No cristina cardial effusion. There is chronic height loss of lower thoracic vertebral bodies. Abdomen/pelvis/proximal thighs: There is a 2.4 cm cyst in the liver. The spleen, pancreas, and adrena l glands are normal. There are cysts in the kidneys measuring up to 2.3 cm on the right. There are no dilated loops of bowel. There is diverticulosis of the colon without evidence of diverticulitis. The re are no pathologically enlarged lymph nodes. There is no free intraperitoneal fluid. There is inter nal fixation of left femur. There is a total right knee arthroplasty. IMPRESSION: 1. No specific evidence of metastatic disease. 2. Increased activity in left thyroid lobe, which may be benign or less likely malignancy. Consider t hyroid ultrasound for risk stratification. Reviewed, dictated and finalized at location A. OMER CARE REPRESENTATIVE IMPRESSION: 1. No specific evidence of metastatic disease. 2. Increased activity in left thyroid lobe, which may be benign or less likely malignancy. Consider thyroid ultrasound for risk stratification.
[2021-08-29 08:27] LABS: Glucose Point of Care 115 mg/dl (65-105)
== END 2021-08-29 07:13 | disposition home or self-care (01) ==
LOC: ANHIMG 07:15
PROVIDERS: PCP Internal Medicine; Visit Provider Urology
DX: C67.8 Malignant neoplasm of overlapping sites of bladder (principal)
CPT/HCPCS: 78815; A9552

== ENCOUNTER 2021-09-20 10:51 | Outpatient (CLI) | payer MEDICARE, BC, SELFPAY ==
--- NOTE | ~2021-09-20 | US_ITS ---
EXAMINATION: US thyroid EXAM DATE: 09/20/2021 11:16 INDICATION: E04.1 - Nontoxic single thyroid nodule , abnormal CT. Thyroidectomy, uncertain if unilate ral or bilateral. TECHNIQUE: Multiple grayscale and Doppler images of the thyroid were obtained (by a technologist who performed the scan) and subsequently reviewed. Individual nodules and recommendations may be reporte d in accordance with TI-RADS system as designated by the 2017 ACR White Paper TI-RADS committee. Comp arison is made to prior examination from 2012. FINDINGS: Interval thyroidectomy, no identifiable thyroid parenchyma identified on either side. No regional lym phadenopathy. IMPRESSION: Unremarkable thyroidectomy bed. Reviewed, dictated and finalized at location A. AL PSYCHOLOGIST
== END 2021-09-20 10:52 | disposition home or self-care (01) ==
LOC: ANHIMG 10:52
PROVIDERS: PCP Internal Medicine; Visit Provider Internal Medicine
DX: E04.1 Nontoxic single thyroid nodule (principal)
CPT/HCPCS: 76536

== ENCOUNTER 2021-12-13 06:59 | Outpatient (CLI) | payer MEDICARE, BC, SELFPAY ==
[2021-12-13 07:58] LABS: Anion Gap 4 mmol/L (8-16); Blood Urea Nitrogen 32 mg/dL (7-17); Calcium 8.4 mg/dL (8.4-10.2); Carbon Dioxide 32 mmol/L (22-30); Chloride 101 mmol/L (98-107); Cholesterol 123 mg/dL (0-200); Estimated Glomerular Filt Rate 20; Glucose 133 mg/dL (65-110); HDL Direct 37 mg/dL; Potassium 4.4 mmol/L (3.4-5.0); Sodium 137 mmol/L (137-145); Triglycerides 176 mg/dL (<150)
[2021-12-13 08:03] LABS: Hemoglobin A1C 6.4 % (<5.7)
[2021-12-13 08:09] LABS: LDL Cholesterol Direct 50 mg/dL
[2021-12-13 09:48] LABS: Free T4 Free Thyroxine 1.71 ng/mL (0.78-2.19)
== END 2021-12-13 07:00 | disposition home or self-care (01) ==
LOC: ANHLAB 07:04
PROVIDERS: PCP Internal Medicine; Visit Provider Internal Medicine
DX: E03.9 Hypothyroidism, unspecified (principal); E11.22 Type 2 diabetes mellitus with diabetic chronic kidney disease; E78.2 Mixed hyperlipidemia; Z79.899 Other long term (current) drug therapy; I12.9 Hypertensive chronic kidney disease with stage 1 through stage 4 chronic kidney disease, or unspecified chronic kidney disease; N18.30 Chronic kidney disease, stage 3 unspecified
CPT/HCPCS: 36415; 80048; 80061; 83036; 84439; 84443

== ENCOUNTER 2022-01-28 14:26 | Outpatient (CLI) | payer MEDICARE, BC, SELFPAY ==
--- NOTE | ~2022-01-28 | XR_ITS ---
EXAMINATION: XR lumbar spine 2-3V DATE: 01/28/2022 14:54 INDICATION: Low back pain TECHNIQUE: Anteroposterior and lateral in flexion and extension views of the lumbar spine were obtain ed. COMPARISON: 11/24/2019 FINDINGS: There are 5 mm of stable retrolisthesis of L1 on L2, 2 mm of stable retrolisthesis of L2 on L3, and 5 mm of stable anterolisthesis of L4 on L5. No laxity is present with flexion or extension. There is no fracture. There is severe loss of intervertebral disc space height at T12-L1 and L1-2, mo derate loss of intervertebral disc space height at L4-5, and mild disc space height loss throughout t he remainder of the lumbar spine. The vertebral body heights are maintained. Small degenerative osteo phytes project from the anterior endplates of multiple vertebral bodies. Calcified atherosclerosis is noted. There is severe facet osteoarthritis of the mid and lower lumbar spine. There is antegrade in tramedullary neelima and interlocking intratrochanteric screw fixation of the left femur. Phleboliths are noted in the pelvis. IMPRESSION: 1. Severe lumbar spondylosis without acute findings or significant interval change. Reviewed, dictated and finalized at location A. IMPRESSION: 1. Severe lumbar spondylosis without acute findings or significant interval kimmy nge.
--- NOTE | ~2022-01-28 | XR_ITS ---
EXAMINATION: XR pelvis min 3V INDICATION: Low back pain TECHNIQUE: Three views of the pelvis are obtained. COMPARISON: None available FINDINGS: Bone alignment is normal. There is no acute fracture. There is antegrade intramedullary neelima and interlocking intratrochanteric screw fixation of the left femur. There are phleboliths of the p fannie. Severe lower lumbar spondylosis is noted. There is mild osteoarthritis of the right hip. Calci fied atherosclerosis is noted. IMPRESSION: 1. No acute findings of the pelvis. Severe lumbar spondylosis. Reviewed, dictated and finalized at location A.
== END 2022-01-28 14:27 | disposition home or self-care (01) ==
PROVIDERS: PCP Internal Medicine; Visit Provider Internal Medicine
DX: M47.25 Other spondylosis with radiculopathy, thoracolumbar region (principal); M16.11 Unilateral primary osteoarthritis, right hip; M54.30 Sciatica, unspecified side
CPT/HCPCS: 72100; 72190

== ENCOUNTER 2022-02-07 13:16 | Outpatient (CLI) | payer MEDICARE, BC, SELFPAY ==
--- NOTE | ~2022-02-07 | CT_ITS ---
EXAMINATION: CT chest abdomen pelvis wo con DATE: 02/07/2022 13:45 INDICATION: Malignant neoplasm of posterior wall of urinary bladder. TECHNIQUE: Computed tomography (CT) of the chest, abdomen, and pelvis was performed without intraveno us contrast. Automated exposure control and iterative reconstruction technique were employed. The dos e-length product was 1658.89 mGy-cm. COMPARISON: CT abdomen and pelvis 07/29/2021, chest CT 04/20/2020 FINDINGS: CHEST CT: There is chronic peripheral septal thickening in the lungs. There is mild atelectasis in the lower lo bes. There are greater than 15 nodules in the lungs in a random distribution measuring up to 9 mm. No pleural effusion. The heart size is normal. There are coronary artery calcifications. No pericardial effusion. There is severe cervical and thoracic spondylosis. ABDOMEN/PELVIS CT: There is a 2.4 cm cyst in the liver. The gallbladder is contracted. The spleen is normal. There are c alcifications in the pancreas, consistent with chronic pancreatitis. The adrenal glands are normal. T here are cysts in the kidneys measuring up to 2.9 cm on the right. There are no dilated loops of ayleen l. The appendix is normal. There is aortocaval, left para-aortic, bilateral common iliac, left mba intern al iliac, and left external iliac lymphadenopathy. For example, a left para-aortic node measures 2.9 x 2.2 cm. There is no free intraperitoneal fluid. There is internal fixation of left femur. There is severe lumbar spondylosis. IMPRESSION: 1. Worsened pulmonary nodules and retroperitoneal and pelvic lymphadenopathy, consistent with metasta tic disease. Reviewed, dictated and finalized at location A. IMPRESSION: 1. Worsened pulmonary nodules and retroperitoneal and pelvic lymphadenopathy, c onsistent with metastatic disease.
== END 2022-02-07 13:17 | disposition home or self-care (01) ==
LOC: ANHIMG 13:22
PROVIDERS: PCP Internal Medicine; Visit Provider Internal Medicine Hematology & Oncology
DX: C67.4 Malignant neoplasm of posterior wall of bladder (principal); R91.8 Other nonspecific abnormal finding of lung field
CPT/HCPCS: 71250; 74176

== ENCOUNTER → 2022-02-19 11:52 | Outpatient (CLI) | payer MEDICARE, BC, SELFPAY ==
--- NOTE | ~2022-02-19 | MR_ITS ---
EXAMINATION: MR lumbar spine wo con DATE: 02/19/2022 12:29 INDICATION: Lumbar radiculopathy. TECHNIQUE: Magnetic resonance imaging (MRI) of the lumbar spine was performed without intravenous con trast. Sequences included sagittal T2-weighted FSE, sagittal T2-weighted FS FSE, sagittal T1-weighted FSE, and axial T2-weighted FSE. COMPARISON: None FINDINGS: There is approximately 10 degrees levoscoliosis centered at L1. 3 mm retrolisthesis T12 on L1, L1 on L2 and 6 mm anterolisthesis L4 on L5. Approximately 20% right-sided vertebral body height loss at L1 and 20% anterior and right-sided vertebral body height loss at T12 which may be related to severe dis c height loss with degenerative endplate remodeling with fibrovascular degenerative endplate changes at both T12-L1 and L1-L2. Remaining vertebral body heights and marrow signal are normal. Moderate dis c height loss at L4-L5, T10-T11 and T11-T12. Mild disc height loss at L2-L3, L3-4 and L5-S1. There ar e annular fissures at T11-T12 through L4-L5. The conus medullaris terminates at L1. There is normal s ignal in the caudal spinal cord. Paravertebral soft tissues are unremarkable. The following disc leve ls are specifically discussed: T12-L1: Disc is bulging. There is mild bilateral facet joint osteoarthritis. There is moderate right and mild to moderate left neural foraminal stenosis. There is mild central canal stenosis. L1-L2: Disc is bulging. There is hypertrophy of the ligamentum flavum. There is moderate bilateral f acet joint osteoarthritis. There is moderate bilateral neural foraminal stenosis. There is moderate c entral canal stenosis. L2-L3: Disc is bulging. There is hypertrophy of the ligamentum flavum. There is mild left and mild t o moderate right facet joint osteoarthritis. There is moderate bilateral neural foraminal stenosis. T here is mild central canal stenosis. L3-L4: Disc is bulging. There is prominent hypertrophy of the ligamentum flavum. There is severe bila teral facet joint osteoarthritis. There is moderate bilateral neural foraminal stenosis. There is mod erate to severe central canal stenosis. L4-L5: Disc is bulging with annular fissure and central disc extrusion with disc material extending 5 mm cephalad to the level of the inferior endplate of L4. There is prominent hypertrophy of the ligam entum flavum. There is severe bilateral facet joint osteoarthritis. There is moderate bilateral neur al foraminal stenosis. There is severe central canal stenosis. L5-S1: Disc is bulging. There is severe bilateral facet joint osteoarthritis. There is moderate right and mild left neural foraminal stenosis. There is mild central canal stenosis. IMPRESSION: 1. Mild thoracolumbar levocurvature with severe spondylosis. Reviewed, dictated and finalized at location B.
== END ==
PROVIDERS: PCP Internal Medicine; Visit Provider Nurse Practitioner Family
DX: M54.16 Radiculopathy, lumbar region (principal); M47.894 Other spondylosis, thoracic region
CPT/HCPCS: 72148

== ENCOUNTER 2022-03-05 18:35 | Inpatient (IN) | payer MEDICARE, BC, SELFPAY ==
--- NOTE | ~2022-03-05 | XR_ITS ---
XR abdomen/kub 1V DATE: 03/10/2022 05:55 INDICATION: Colonic pseudoobstruction TECHNIQUE: AP views COMPARISON: 03/09/2022 KUB FINDINGS: Nonspecific bowel gas pattern without apparent obstruction. No visceromegaly is evident. Th e psoas shadows are intact. Levoscoliosis and degenerative changes of the thoracic lumbar spine. Osteopenia. Compression screw and nail in proximal left femur. Pulmonary nodules and left lower lung infiltrate and/or atelectasis are noted. IMPRESSION: Nonspecific abdomen Pulmonary nodules and left lower lobe infiltrate and/atelectasis. Reviewed, dictated and finalized at Location A. Reviewed, dictated and finalized at location A.
--- NOTE | ~2022-03-05 | XR_ITS ---
EXAMINATION: XR enema water soluble DATE: 03/06/2022 13:14 INDICATION: Colon obstruction. TECHNIQUE: A envelope stuffer radiograph was obtained. A catheter was inserted into the patient's rectum. Contra st was infused by gravity. Fluoroscopic spot images and conventional radiographs were obtained. Fluor oscopy exposure time was 0.5 minutes. The total number of images was 27. COMPARISON: CT abdomen and pelvis 03/05/2022, 03/06/2022 FINDINGS: There is gaseous distention of the ascending and transverse colon. There is no colonic mass or stricture. The nasogastric tube tip is in the stomach. There is an old healed fracture of proxima l left femur with internal fixation. IMPRESSION: 1. Gaseous distention of the ascending and transverse colon, consistent with adynamic ileus. No obstr uction. Reviewed, dictated and finalized at location A. IMPRESSION: 1. Gaseous distention of the ascending and transverse colon, consistent with ad ynamic ileus. No obstruction.
--- NOTE | ~2022-03-05 | XR_ITS ---
EXAMINATION: XR abdomen NG/feed tube rechec DATE: 03/07/2022 01:22 INDICATION: Nasogastric tube advancement. TECHNIQUE: An upright view of the abdomen was obtained. COMPARISON: Abdomen radiograph at 1:07 AM. FINDINGS: The lower abdomen is excluded. The transverse colon is distended. The nasogastric tube tip is in the stomach. Again seen are nodules in the lungs, consistent with metastatic disease. IMPRESSION: 1. Nasogastric tube tip in the stomach. 2. Distended transverse colon, consistent with adynamic ileus. 3. Pulmonary nodules, consistent with metastatic disease. Reviewed, dictated and finalized at location A.
--- NOTE | ~2022-03-05 | CT_ITS ---
EXAMINATION: CT abdomen pelvis wo con DATE: 03/06/2022 12:47 INDICATION: Colon obstruction. TECHNIQUE: Computed tomography (CT) of the abdomen and pelvis was performed without intravenous contr ast. Automated exposure control and iterative reconstruction technique were employed. The dose-length product was 1383.00 mGy-cm. COMPARISON: CT abdomen and pelvis 03/05/2022, 10/04/2016 FINDINGS: The visualized portions of the lung bases demonstrate numerous pulmonary nodules measuring up to 15 mm, consistent with metastatic disease. There is mild atelectasis bilaterally. There are tra ce pleural effusions. The heart size is normal. There are coronary artery calcifications. No pericard ial effusion. There is a small sliding hiatal hernia. The nasogastric tube tip is in the stomach. The re is a 2.6 cm cyst in the liver. The gallbladder and spleen are normal. There are calcifications of the pancreas, consistent with chronic pancreatitis. The adrenal glands are normal. There are cysts in the kidneys measuring up to 2.4 cm on the right. There is a catheter in the rectum with contrast in the colon. The transverse and ascending colon are dilated. There is no obstruction. The appendix is d ilated to 10 mm, which is chronic. There is aortocaval and left para-aortic lymphadenopathy. There is bilateral common iliac and left external iliac lymphadenopathy. There is an old healed fracture of p roximal left femur with internal fixation. There are old healed bilateral rib fractures. There is sev ere thoracolumbar spondylosis. IMPRESSION: 1. Dilated ascending and transverse colon, consistent with adynamic ileus. No obstruction. 2. Retroperitoneal and pelvic lymphadenopathy and lung nodules, consistent with metastatic disease. Reviewed, dictated and finalized at location A. IMPRESSION: 1. Dilated ascending and transverse colon, consistent with adynamic ileus. No o bstruction. 2. Retroperitoneal and pelvic lymphadenopathy and lung nodules, consistent with metastatic disease.
--- NOTE | ~2022-03-05 | XR_ITS ---
EXAMINATION: XR chest 2V Exam Date/Time: 03/05/2022 20:08 CDT HISTORY: cough W/PHLEGM WORSENING,COPD,DIARRHEA Comparison: 12/19/2019. RESULT: Lines, tubes, and devices: None. Lungs and pleura: Innumerable bilateral pulmonary nodules. Cardiomediastinal silhouette: Stable cardiomediastinal silhouette. Other: No acute osseous or upper abdominal finding. IMPRESSION: No acute cardiopulmonary process. Redemonstration of pulmonary metastatic disease. Reviewed, dictated and finalized at location K. IMPRESSION: No acute cardiopulmonary process. Redemonstration of pulmonary metastatic disea se.
--- NOTE | ~2022-03-05 | XR_ITS ---
XR abdomen/kub 1V 03/08/2022 06:03 Indication: Follow-up colonic pseudoobstruction Procedure: AP view of the abdomen Comparison: Comparison to multiple prior studies sequentially, with oldest reviewed study dated 05/2022. Findings: Retrocardiac airspace disease. Small left effusion. Dilated colon is present in the left mi d abdomen. No suspicious calcifications. Postoperative changes of the left hip noted. Advanced lumbar spondylosis. No acute osseous abnormality. Impression: 1: Dilated colon in the left mid abdomen, nonspecific. No significant interval change from prior stud ies. 2: Retrocardiac airspace consolidation which may represent atelectasis or pneumonia. Reviewed, dictated and finalized at location A. Impression: 1: Dilated colon in the left mid abdomen, nonspecific. No significant interval change from prior studies. 2: Retrocardiac airspace consolidation which may represent atelectasis or pneu monia.
--- NOTE | ~2022-03-05 | XR_ITS ---
XR abdomen/kub 1V 03/09/2022 05:34 Indication: Follow-up colonic pseudoobstruction Procedure: KUB Comparison: Comparison to multiple prior studies sequentially, with oldest reviewed study dated 03/07. Findings: There is left basilar consolidation/pleural effusion partially visualized. There has been d ecompression of the colon compared with prior examinations. No significant bowel dilation on the curr ent study. No abnormal calcifications. Severe lower thoracic and lumbar spondylosis. Status post inte rnal fixation of proximal left femoral fracture with dynamic compression screw and intramedullary neelima , partially visualized. Impression: 1: Interval decompression of colon compared with prior examinations, consistent with resolving ileus/ obstruction. Reviewed, dictated and finalized at location A. Impression: 1: Interval decompression of colon compared with prior examinations, consistent with resolving ileus/obstruction.
--- NOTE | ~2022-03-05 | XR_ITS ---
EXAMINATION: XR abdomen NG/feed tube insert DATE: 03/05/2022 23:41 INDICATION: Nasogastric tube placement. TECHNIQUE: An upright view of the abdomen was obtained. COMPARISON: CT abdomen and pelvis 03/05/2022 FINDINGS: The lower abdomen is excluded. The colon is distended. The nasogastric tube tip is in the s tomach. There are pulmonary nodules bilaterally. IMPRESSION: 1. Nasogastric tube tip in the stomach. 2. Distended colon, which may be adynamic ileus or distal obstruction. 2. Pulmonary nodules, consistent with metastatic disease. Reviewed, dictated and finalized at location A.
--- NOTE | ~2022-03-05 | CT_ITS ---
EXAMINATION: CT abdomen pelvis wo con DATE: 03/05/2022 20:24 INDICATION: n/v abd pain TECHNIQUE: Computed tomography (CT) of the abdomen and pelvis was performed without intravenous contr ast. Automated exposure control and iterative reconstruction technique were employed. The dose-length product was 1170.76 mGy-cm. COMPARISON: 02/07/2022 FINDINGS: Lower thorax: Pulmonary metastatic disease. Coronary artery calcifications. Liver: Normal. Simple liver cyst. Biliary/Gallbladder: Gallbladder is collapsed. No bile duct dilation. Pancreas: No mass or duct dilation. Chronic calcifications. Spleen: Normal. Adrenals:No mass. Kidneys: Multiple bilateral simple cysts. Bilateral subcentimeter hyperdense lesions that may represe nt hemorrhagic or proteinaceous cysts. GI tract: Cecum is dilated up to 13 cm, the ascending and transverse colon remains dilated, with a tr ansition point at the splenic flexure to normal appearing distal large bowel. No small bowel dilation . Appendix is normal. Mesentery/Peritoneum: No mass or free air. Small volume perisplenic and left paracolic gutter fluid. Retroperitoneum: No mass. Atherosclerotic calcifications. Para-aortic lymphadenopathy. Pelvis: Small volume free pelvic fluid. Pelvic lymphadenopathy. Soft Tissues: Portions of the anterior abdomen are excluded from the [id number]. Bones: No acute osseous finding. IMPRESSION: Large bowel obstruction, transition point at the splenic flexure. Reviewed, dictated and finalized at location K.
--- NOTE | ~2022-03-05 | XR_ITS ---
EXAMINATION: XR abdomen NG/feed tube rechec DATE: 03/07/2022 01:17 INDICATION: Nasogastric tube placement. TECHNIQUE: An upright view of the abdomen was obtained. COMPARISON: CT abdomen and pelvis 03/06/2022 FINDINGS: The lower abdomen is excluded. The transverse colon is distended. The nasogastric tube tip is at the gastroesophageal junction. Again seen are numerous pulmonary nodules, consistent with metas tatic disease. There is mild atelectasis in the lower lung zones. IMPRESSION: 1. Nasogastric tube tip at the gastroesophageal junction. The tube has since been advanced. 2. Distended transverse colon, consistent with adynamic ileus. 3. Pulmonary nodules, consistent with metastatic disease. Reviewed, dictated and finalized at location A. IMPRESSION: 1. Nasogastric tube tip at the gastroesophageal junction. The tube has since be en advanced. 2. Distended transverse colon, consistent with adynamic ileus. 3. Pulmonary nodules, consistent with metastatic disease.
--- NOTE | ~2022-03-05 | XR_ITS ---
EXAMINATION: XR abdomen/kub 1V DATE: 03/07/2022 05:56 INDICATION: Colonic pseudoobstruction. TECHNIQUE: A supine view of the abdomen on 3 radiographs was obtained. COMPARISON: CT abdomen and pelvis 03/06/2022 FINDINGS: There is distention of the transverse colon. The small bowel is normal in caliber. The naso gastric tube tip is in the stomach. There is internal fixation of left femur. IMPRESSION: 1. Persistent distention of the transverse colon, consistent with adynamic ileus. Reviewed, dictated and finalized at location A. IMPRESSION: 1. Persistent distention of the transverse colon, consistent with adynamic ileu s.
[2022-03-05 18:41] VITALS: BP 142/63; PULSE 89; RESP 17; O2SAT 99
--- NOTE | 2022-03-05 18:58 | ECG_ITS ---
Measurements Intervals [place] Rate: 89 P: 72 WI: 151 QRS: 45 QRSD: 110 T: 64 QT: 331 QTc: 405 Interpretive Statements SINUS RHYTHM POSSIBLE LEFT ATRIAL ENLARGEMENT [-0.1mV P WAVE IN V1/V2] NO PREVIOUS ECG AVAILABLE FOR COMPARISON Electronically Signed On 03-05-2022 22:22:20 CDT by Ana Sorto M.D.
[2022-03-05 19:10] VITALS: PULSE 92; RESP 20
[2022-03-05 19:11] LABS: Basophils Percent Auto 0.2 % (0.2-1.2); Hematocrit 29.1 % (42.0-52.0); Hemoglobin 9.3 g/dL (14.0-18.0); Immature Granulocyte Absolute 0.17 K/mm3 (0.00-0.031); Immature Granulocyte Percent A 0.8 % (0-0.5); Lymphocytes Absolute Auto 0.65 K/mm3 (0.9-3.2); Lymphocytes Percent Auto 3.2 % (18.3-44.2); Mean Corpuscular Hemoglobin 31.5 pg (26-34); Mean Corpuscular Volume 98.6 fl (80-100); Mean Platelet Volume 9.6 fl (7.4-10.4); Monocytes Percent Auto 5.2 % (2.6-8.5); Neutrophils Absolute Auto 18.1 K/mm3 (1.3-6.7); Neutrophils Percent Auto 90.6 % (45.5-73.1); Nucleated Red Blood Cells Perc 0.1 % (0.0-0.2); Platelet Count Result 260 k/mm3 (150-375); Red Blood Count 2.95 M/mm3 (4.6-6.20); Red Cell Distribution Width 14.2 % (11.5-14.5)
[2022-03-05] MEDS: IPRATROPIUM BR 0.02% INH SOLN 0.5 MG/2.5 ML VIAL 1 MG INHALATION (19:11)
[2022-03-05] MEDS: ALBUTEROL SULFATE NEB 2.5 MG/3 ML INH 15 MG INHALATION (19:11)
--- NOTE | 2022-03-05 19:20 | ED.GENADULT ---
HPI - General Adult General Chief complaint: Unspecified Stated complaint: glf etoh slurred speech Time Seen by Provider: 03/05/22 18:51 History of Present Illness HPI narrative: Patient states that she was having constipation and started taking some Metamucil, and the last 2 days has been having diarrhea and nausea and vomiting and cannot keep anything down, she also has been coughing and making a lot of phlegm, per EMS was hypoxic upon arrival here. Does not usually wear oxygen. Denies any chest pain, fevers or chills. Has history of bladder cancer s/p radiation treatments. Related Data Allergies Allergy/AdvReac Type Severity Reaction Status Date / Time Penicillins Allergy Rash Verified 03/05/22 19:40 Review of Systems Review of Systems: CONST: No fever. HEENT: No congestion C/V: No chest pain RESP: Cough GI: Reports abdominal pain, nausea, vomiting[, diarrhea] : No dysuria. M/S: No joint pain. SKIN: No rash. NEURO: [No headache or focal numbness or weakness] PSYCH: [No depression] [facility] Past Medical History Medical History (Updated 03/05/22 @ 22:01 by Mariela Horn MD) COPD (chronic obstructive pulmonary disease) Social History Social History (Updated 03/05/22 @ 19:24 by Mariela Horn MD) Smoking status: Former smoker Exam Narrative: EXAMINATION OF ORGAN SYSTEMS/BODY AREAS: Constitutional: Vital signs per nursing GENERAL: Resting comfortably in bed HEAD: Normal with no signs of head trauma. EYES: EOMI, conjunctiva normal ENT: Hearing grossly intact LUNGS: Prolonged end expiratory wheezing all lung alfred, fair movement HEART: [Regular rate and rhythm] ABD: Obese, nontender to palpation EXT: Normal range of motion SKIN: [No rashes or lesions.] NEURO: [Alert and cooperative. No gross focal sensory or strength deficits.] PSYCH: Normal affect Course Vital Signs Vital signs: Vital Signs Pulse Rate 89 03/05/22 18:41 Respiratory Rate 17 03/05/22 18:41 Blood Pressure 142/63 H 03/05/22 18:41 Pulse Oximetry 99 03/05/22 18:41 Oxygen Delivery Nasal Cannula 03/05/22 18:41 Oxygen Flow Rate 4 03/05/22 18:41 Pulse Rate 94 03/05/22 21:18 Respiratory Rate 22 H 03/05/22 21:18 Blood Pressure 146/60 H 03/05/22 21:18 Pulse Oximetry 93 03/05/22 21:18 Oxygen Delivery Nasal Cannula 03/05/22 18:41 Oxygen Flow Rate 4 03/05/22 18:41 Medical Decision Making MDM Narrative Medical decision making narrative: 81-year-old female presents with 2 days of cough, nausea vomiting diarrhea, was found to be hypoxic and was placed on oxygen here, on exam does have diffuse wheezing, differential includes viral illness / pneumonia, acute COPD exacerbation, less likely ACS/SC or PE without chest pain. She will be treated with breathing treatments and imaging obtained. Labs notable for elevated white count, blood cultures obtained and patient started on IV antibiotics, imaging does show chest x-ray with multiple pulmonary nodules concerning for metastases, and CT abdomen/pelvis demonstrating large bowel obstruction. I did call surgery consult Dr. Lucas and GI Dr. Royal who are agreeable to seeing patient in the morning; Dr. Lucas requested NG tube placement. I did discuss with the patient the results of the imaging and likely metastases to the lungs. She will be admitted to the hospitalist service, discussed with Dr. Kasper. Vital Signs Vital Signs: Vital Signs Pulse Rate 89 03/05/22 18:41 Respiratory Rate 17 03/05/22 18:41 Blood Pressure 142/63 H 03/05/22 18:41 Pulse Oximetry 99 03/05/22 18:41 Oxygen Delivery Nasal Cannula 03/05/22 18:41 Oxygen Flow Rate 4 03/05/22 18:41 Pulse Rate 94 03/05/22 21:18 Respiratory Rate 22 H 03/05/22 21:18 Blood Pressure 146/60 H 03/05/22 21:18 Pulse Oximetry 93 03/05/22 21:18 Oxygen Delivery Nasal Cannula 03/05/22 18:41 Oxygen Flow Rate 4 03/05/22 18:41 Lab Data Result diagrams: 03/05/22 19:05
[2022-03-05 19:24] LABS: Alanine Aminotransferase 13 U/L (6-50); Albumin Level 3.6 g/dL (3.5-5.1); Alkaline Phosphatase 57 U/L (38-126); Anion Gap 6 mmol/L (8-16); Aspartate Amino Transferase 18 U/L (17-59); Bilirubin,Total 0.2 mg/dL (0.2-1.3); Blood Urea Nitrogen 52 mg/dL (9-20); Calcium 8.5 mg/dL (8.4-10.2); Carbon Dioxide 28 mmol/L (22-30); Chloride 92 mmol/L (98-107); Estimated CRCL calculation 27 ml/min; Estimated Glomerular Filt Rate 30; Glucose 204 mg/dL (65-110); Lipase 74 U/L (23-300); Potassium 4.8 mmol/L (3.4-5.0); Sodium 126 mmol/L (137-145)
[2022-03-05] MEDS: predniSONE 20 MG TABLET 40 MG PO (19:39)
[2022-03-05] MEDS: ONDANSETRON INJ 4 MG/2 ML VIAL IV PUSH (19:40)
[2022-03-05 20:00] VITALS: PULSE 95; RESP 19
[2022-03-05 20:37] LABS: SARS-CoV-2 RNA PCR Negative
[2022-03-05] MEDS: LACTATED RINGERS 1,000 ML 999 ML IV CONT (21:04)
[2022-03-05 21:18] VITALS: BP 146/60; PULSE 94; RESP 22; O2SAT 93
[2022-03-05] MEDS: metroNIDAZOLE 500 MG/ISO 100ML 500 MG/100 ML BAG 100 MG IVPB (22:29)
[2022-03-05] MEDS: CIPROFLOXACIN 400 MG/D5W 200ML 200 ML 200 MG IVPB (23:01)
[2022-03-05 23:04] VITALS: O2SAT 93
[2022-03-06] VITALS (18 sets, daily range): BP systolic 144–169; BP diastolic 60–72; PULSE 86–96; RESP 16–22; TEMP 36.3–37.6; O2SAT 94–98; BMI 37.9
[2022-03-06] MEDS: LACTATED RINGERS 1,000 ML 125 ML IV CONT ×3 (00:12→18:50)
--- NOTE | 2022-03-06 00:25 | ADMGEN ---
This patient, Cristina Bravo, was admitted to [facility] Surg Room 332-02. Patient/family oriented to hospital policies and general routines including ID bracelet, bed and alarms, visiting hours, pain management, procedures, bathroom and other care routines, personal items, smoking policy, room service/diet, and visiting hours. Information on how to activate the Rapid Response Team has been discussed. Patient/Family are encouraged to report perceived risks to care and to ask questions if they do not understand what they are told or what they should do.
[2022-03-06 00:42] LABS: Glucose Point of Care 231 mg/dl (65-105)
--- NOTE | 2022-03-06 06:56 | WPDGICN ---
Assessment and Plan Assessment and plan (1) Intestinal obstruction: Code(s): K56.609 - Unspecified intestinal obstruction, unspecified as to partial versus complete obstruction Status: Acute Assessment and Plan: she has what appears to be complete obstruction at the area of the splenic flexure. Surgery has been consulted and I believe is pending colostomy today. She states that she had suspected intestinal obstruction 3 years ago and [facility] perform exploratory surgery but could not find a blockage. she is on nasogastric suction. So for not very much has come out. (2) Hx of colonic polyps: Code(s): Z86.010 - Personal history of colonic polyps Status: Acute Assessment and Plan: She thinks her last colonoscopy was well over 10 years ago. There is no record of that here GI Consult Note Consult date/time: 03/06/22 06:56 HPI: Cristina Bravo is a 81 year old female who states that that she became constipated last week. She had taken some milk of magnesia and had loose almost watery stools. Gradually her abdomen became larger and she has been nauseated and unable to keep down anything for the last 4 or 5 days. She thinks it was Thursday or Thursday last time she kept food down. She states that she had not been having a great deal of pain but was uncomfortable because her abdomen was becoming distended. She states that she had a colonoscopy many years ago. Also, she had exploratory surgery about 3 years ago at [facility]. She states that they thought that she had an obstruction , and had told her they may remove part of her bowels, but after they went in they found out that there was'nothing that needed to be resected'. CT scan here shows dilated proximal colon and a transition point in the area of the splenic flexure. There also appeared to be metastatic lesions to the lungs Review of Systems Review of Systems: All systems reviewed & are unremarkable except as noted in HPI and below PMFSH Past Medical History Medical History Anemia Arthritis Asthma Asthma Back pain Benign essential hypertension Bladder cancer BMI 32.0-32.9,adult BMI 33.0-33.9,adult BMI 35.0-35.9,adult Bronchitis Cataracts, bilateral Cataracts, bilateral Chronic back pain Chronic kidney disease, stage 3 With baseline creatinine between 1.2-1.4 CKD (chronic kidney disease) CKD (chronic kidney disease), stage III Colon distention Compression fracture of thoracic spine, non-traumatic COPD (chronic obstructive pulmonary disease) COPD (chronic obstructive pulmonary disease) Cough Diabetes DM type 2 (diabetes mellitus, type 2) DVT (deep venous thrombosis) DVT (deep venous thrombosis) LLE Eczema Elevated homocysteine Elevated serum creatinine Encounter for Medicare annual wellness exam Encounter for routine adult health examination with abnormal findings Encounter for routine adult health examination without abnormal findings Follow up Hematuria History of irritable bowel syndrome HTN (hypertension) Hx of colonic polyps Hyperlipidemia Hyperlipidemia Hypothyroid Hypothyroidism Hypothyroidism (acquired) Left wrist fracture Lipoma Lumbar radiculopathy Melena Metastatic cancer to lung Microscopic hematuria [place]'s syndrome On rn long term care drug therapy Pneumonia Renal cyst Rheumatoid arthritis Rheumatoid arthritis Sciatica of left side Seasonal allergies Sebaceous cyst Sick euthyroidism Thyroid nodule Torn rotator cuff right Umbilical hernia Umbilical hernia Uterine cancer Vitamin D deficiency Surgical History Surgical History H/O breast biopsy bilateral H/O dilation and curettage H/O thyroidectomy H/O total hysterectomy History of knee replacement, total right History of orthopedic surgery left hip surgery, left femur surgery Hx of cholecystectomy Hx of thyroidectomy Hx
[2022-03-06 07:58] LABS: Glucose Point of Care 147 mg/dl (65-105)
[2022-03-06 08:29] LABS: Influenza A QL RT-PCR Negative (Negative); Influenza B QL RT-PCR Negative (Negative)
--- NOTE | 2022-03-06 09:02 | WPDANESEPPF ---
Anes - Initial Pre Proc Eval Procedure: Operation Date: 03/06/22 15:00 Proposed Procedures p Transverse Loop Diverting Colostomy - Justin Lucas MD Date/Time: 03/06/22 09:02 Surgeon: Ann Kasper DO Pre Op Diagnosis: LBO,hypoxia Patient Data Age: 81 Gender: F Height: 1.65 m Weight: 103.3 kg Last Vital Signs Temp 36.4 C 03/06/22 05:40 Pulse 90 03/06/22 05:40 Resp 18 03/06/22 05:40 BP 150/60 H 03/06/22 05:40 Pulse Ox 96 03/06/22 05:40 O2 Del Method Nasal Cannula 03/06/22 01:42 O2 Flow Rate 3 03/06/22 01:42 Allergies Allergy/AdvReac Type Severity Reaction Status Date / Time iohexol Allergy Intermediate Itching Verified 03/06/22 01:34 Penicillins Allergy Mild Rash Verified 03/06/22 00:50 Cephalosporins Allergy Hives Verified 03/06/22 01:34 clindamycin Allergy Unknown Verified 03/06/22 01:34 doxycycline Allergy Itching Verified 03/06/22 01:34 risedronate sodium Allergy Swelling Verified 03/06/22 01:34 of the Eye rofecoxib Allergy Headache Verified 03/06/22 01:34 Home Medications Medication Instructions Recorded Confirmed Type baclofen 5 mg tablet 1 tablet PO TID PRN Muscle Spasm 03/06/22 03/06/22 History diltiazem HCl 180 mg 1 cap PO DAILY 03/06/22 03/06/22 History capsule,extended release 24 hr levothyroxine 125 mcg tablet 1 tablet PO DAILY 03/06/22 03/06/22 History pioglitazone 15 mg tablet 1 tablet PO DAILY 03/06/22 03/06/22 History rosuvastatin 20 mg tablet 1 tablet PO DAILY 03/06/22 03/06/22 History sitagliptin 50 mg tablet (Januvia) 1 tablet PO DAILY 03/06/22 03/06/22 History trazodone 50 mg tablet 2 tablet PO HS PRN Insomnia 03/06/22 03/06/22 History Laboratory Tests 03/05/22 03/05/22 03/05/22 19:05 19:05 19:51 WBC 20.0 K/mm3 H K/mm3 (4.5-10.0) RBC 2.95 M/mm3 L M/mm3 (4.6-6.20) Hgb 9.3 g/dL L g/dL (14.0-18.0) Hct 29.1 % L % (42.0-52.0) MCV 98.6 fl fl (80-100) MCH 31.5 pg pg (26-34) MCHC 32.0 g/dl g/dl (32-36) RDW 14.2 % % (11.5-14.5) Plt Count 260 k/mm3 k/mm3 (150-375) MPV 9.6 fl fl (7.4-10.4) Immature Gran % (Auto) 0.8 % H % (0-0.5) Neut % (Auto) 90.6 % H % (45.5-73.1) Lymph % (Auto) 3.2 % L % (18.3-44.2) [place] % (Auto) 5.2 % % (2.6-8.5) Eos % (Auto) 0.0 % % (0-4.4) Baso % (Auto) 0.2 % % (0.2-1.2) Lymph # (Auto) 0.65 K/mm3 L K/mm3 (0.9-3.2) [place] # (Auto) 1.0 K/mm3 H K/mm3 (0.1-0.6) Eos # (Auto) 0.0 K/mm3 K/mm3 (0-0.3) Baso # (Auto) 0.0 K/mm3 K/mm3 (0.0-0.1) Abs Immat Gran (auto) 0.17 K/mm3 H K/mm3 (0.00-0.031) Absolute Neuts (auto) 18.1 K/mm3 H K/mm3 (1.3-6.7) Absolute Nucleated RBC 0.0 K/mm3 K/mm3 (0.0-0.012) Nucleated RBC % 0.1 % % (0.0-0.2) Sodium 126 mmol/L L mmol/L (137-145) Potassium 4.8 mmol/L mmol/L (3.4-5.0) Chloride 92 mmol/L L mmol/L (98-107) Carbon Dioxide 28 mmol/L mmol/L (22-30) Anion Gap 6 mmol/L L mmol/L (8-16) BUN 52 mg/dL H mg/dL (9-20) Creatinine 2.10 mg/dL H mg/dL (0.7-1.3) Estim Creat Clear Calc 27 ml/min ml/min Estimated GFR 30 L (59 - ) Glucose 204 mg/dL H mg/dL (65-110) POC Capillary Glucose Lactic Acid Calcium 8.5 mg/dL mg/dL (8.4-10.2) Total Bilirubin 0.2 mg/dL mg/dL (0.2-1.3) AST 18 U/L U/L (17-59) ALT 13 U/L U/L (6-50) Alkaline Phosphatase 57 U/L U/L (38-126) Total Protein 6.0 g/dL L g/dL (6.3-8.2) Albumin 3.6 g/dL g/dL (3.5-5.1) Lipase 74 U/L U/L (23-300) Influenza A (RT-PCR) Influenza B (RT-PCR) SARS-CoV-2 RNA (RT-PCR) Negative 03/05/22 03/05/22 03/06/22 19
--- NOTE | 2022-03-06 10:42 | PM.CNGS ---
Assessment and Plan Assessment and plan (1) Large bowel obstruction: Code(s): K56.609 - Unspecified intestinal obstruction, unspecified as to partial versus complete obstruction Status: Acute Assessment and Plan: CT suggesting large bowel obstruction with transition point in the splenic flexure. In review of her records, she had a colonoscopy in November of 2019 that was negative for any colon mass. She has also had a PET/CT scan in August of 2021 when she was found to have bladder cancer. This showed diverticulosis in the colon but no increased uptake anywhere in the colon that would be concerning for a malignancy. She has had two previous hospitalizations in 2019 and 2016 where she was treated for a colonic ileus. Given her history, there is a possibly that this is an ileus rather than a mechanical obstruction. We will get a stat Hypaque enema to further evaluate the large bowel obstruction. If there appears to be a stricture or mass, then we will proceed with a transverse loop diverting colostomy by Dr. Lucas. If there is no obstruction, then we would continue to treat this as a colonic ileus with NG tube decompression and bowel rest. GI has also been consulted. Will await the results of the Hypaque enema for further recommendations. (2) Bladder cancer: Code(s): C67.9 - Malignant neoplasm of bladder, unspecified Status: Acute Assessment and Plan: Diagnosed in July 2021 and has completed chemoradiation therapy in October 2021. Urology consulted. (3) Acute on chronic renal failure: Qualifiers: Acute renal failure type: unspecified Chronic kidney disease stage: stage 3 (moderate) Qualified Code(s): N17.9 - Acute kidney failure, unspecified; N18.3 - Chronic kidney disease, stage 3 (moderate) Code(s): N17.9 - Acute kidney failure, unspecified; N18.9 - Chronic kidney disease, unspecified Status: Resolved Assessment and Plan: Creatinine 2.1 on admission. Continue IV fluids and monitor labs. (4) COPD (chronic obstructive pulmonary disease): Qualifiers: COPD type: unspecified COPD Qualified Code(s): J44.9 - Chronic obstructive pulmonary disease, unspecified Code(s): J44.9 - Chronic obstructive pulmonary disease, unspecified Status: Chronic (5) DM type 2 (diabetes mellitus, type 2): Qualifiers: Chronic kidney disease stage: stage 3 (moderate) Diabetes mellitus complication detail: with chronic kidney disease Diabetes mellitus complication status: with kidney complications Diabetes mellitus termite technician insulin use: without chcf use Qualified Code(s): E11.22 - Type 2 diabetes mellitus with diabetic chronic kidney disease; N18.3 - Chronic kidney disease, stage 3 (moderate) Code(s): E11.9 - Type 2 diabetes mellitus without complications Status: Chronic (6) Rheumatoid arthritis: Code(s): M06.9 - Rheumatoid arthritis, unspecified Status: Acute (7) Benign essential hypertension: Code(s): I10 - Essential (primary) hypertension Status: Chronic Plan I have discussed the patient's case and plan of care with Dr. Lucas. Thank you for allowing us to see the patient in consultation and we will continue to follow along with you. History of Present Illness Consult details Consult date: 03/06/22 Reason for consult: other (Large bowel obstruction with suspected) Requesting physician: Mariela Horn MD Narrative: This is an 81-year-old female with a history of COPD, type 2 diabetes, hypertension, and bladder cancer. She underwent cystoscopy and TURBT, with gemcitabine bladder installation on 08/01/[address] Harvey. Final biopsy showed muscle-invasive urothelial carcinoma. She had a PET/CT scan on 09/03/21 that showed no evidence of metastatic disease. She was not a candidate for cystectomy. She was treated with chemoradiation therapy, which was completed on 11/25/2021. She reports noticing constipation just over a wee
--- NOTE | 2022-03-06 12:34 | PM.IMHP ---
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 It is unclear whether she received radiation. She presents to the hospital with significant constipation. She states she had tried multiple remedies at home with little relief. Her abdomen became significantly distended and she felt nauseated. In the ER, CT scan showed large bowel obstruction with transition point and plan was to take her to the OR for diverting colostomy. 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 GI is consulted and their treatment recommendations are pending. She denies any chest pain or shortness of breath. Nausea is improved after NG tube was placed. She is not passing any gas or stool. No dysuria, fevers or chills. Review of Systems Review of Systems: Twelve point review of systems was reviewed and is negative except as noted in the HPI [facility] Past Medical History Medical History Anemia Arthritis Asthma Back pain Benign essential hypertension Bladder cancer s/p chemoradiation therapy concluded in October 2021 Bronchitis Cataracts, bilateral Chronic back pain Chronic kidney disease, stage 3 With baseline creatinine between 1.2-1.4 Compression fracture of thoracic spine, non-traumatic COPD (chronic obstructive pulmonary disease) DM type 2 (diabetes mellitus, type 2) DVT (deep venous thrombosis) LLE Eczema Elevated homocysteine History of irritable bowel syndrome HTN (hypertension) Hx of colonic polyps Hyperlipidemia Hypothyroidism Left wrist fracture Lipoma Lumbar radiculopathy Melena Metastatic cancer to lung [place]'s syndrome 2016 and 2019 Pneumonia Renal cyst Rheumatoid arthritis Sciatica of left side Seasonal allergies Sebaceous cyst Sick euthyroidism Thyroid nodule Torn rotator cuff right Umbilical hernia Uterine cancer S/p interstitial radiation therapy and hysterectomy Vitamin D deficiency Surgical History Surgical History H/O breast biopsy bilateral H/O dilation and curettage H/O thyroidectomy H/O total hysterectomy History of abdominal surgery Exploratory laparotomy November 2019 for suspected bowel obstruction, found to have an ileus History of colonoscopy with polypectomy History of cystoscopy History of knee replacement, total right History of orthopedic surgery left hip surgery, left femur surgery Hx of cholecystectomy Hx of thyroidectomy Hx of tonsillectomy Family History Family History Father Heart attack Mother Osteoporosis Mother Osteoporosis Father Acute myocardial infarction Social History Social History Social History: Primary care physician: Dr. 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 Gender identity (if verbalized by the patient): Female Spiritual care concerns: No Agree to blood products: Yes Meds Home Medications and Allergies Home Medications Medication Instructions Recorded Confirmed Type m
--- NOTE | 2022-03-06 13:26 | WPDURCON ---
Assessment and Plan Assessment and plan (1) Intestinal obstruction: Code(s): K56.609 - Unspecified intestinal obstruction, unspecified as to partial versus complete obstruction Status: Acute Assessment and Plan: Appears that the obstruction is an ileus and not a mass. General surgery/GI following. (2) Acute on chronic renal failure: Qualifiers: Acute renal failure type: unspecified Chronic kidney disease stage: stage 3 (moderate) Qualified Code(s): N17.9 - Acute kidney failure, unspecified; N18.3 - Chronic kidney disease, stage 3 (moderate) Code(s): N17.9 - Acute kidney failure, unspecified; N18.9 - Chronic kidney disease, unspecified Status: Resolved Assessment and Plan: Creatinine is stable. (3) Metastatic cancer to lung: Code(s): C78.00 - Secondary malignant neoplasm of unspecified lung Status: Acute Assessment and Plan: No biopsies thus far to diagnose metastatic bladder cancer. Continue to follow with Dr. Rasmussen, oncology. (4) Bladder cancer: Code(s): C67.9 - Malignant neoplasm of bladder, unspecified Status: Acute Assessment and Plan: Follow up with Dr. Mack as planned, no further evaluation needed. Urology Consult Note HPI Date Seen: 03/06/22 Time Seen: 09:00 Requesting Physician: Ann Kasper DO Primary Care Provider: Puneet Zarate MD Consult Narrative Reason for consult: History of Bladder Cancer with new Metastatic Disease Narrative: Cristina Bravo is a 81 year old female who presented to the ER yesterday for constipation, nausea, vomiting, diarrhea, coughing and hypoxia that was of acute onset. She has been found via CT scan to have Large bowel obstruction, transition point at the splenic flexure as well as consistent metastatic lung cancer that was noted on her CT from 02/07/22.. She was being considered for a Diverting Loop Transverse Colostomy by General Surgery. However, she has had multiple episodes of bowel obstructions over the course of several years and is thought to maybe have Marielle Syndrome versus a colon mass that is metastatic from the known bladder cancer. She had a hypaque enema which showed Gaseous distention of the ascending and transverse colon, consistent with adynamic ileus. No obstruction, therefore she will remain on bowel rest and no surgery at this time is necessary. We were consulted to ensure to weigh in her current status of bladder cancer treatment. She underwent a TURBT on 08/01/[address] Harvey and pathology showed high grade urothelial carcinoma that is muscle invasive. She was then sent to Dr. Mack within our group to be considered for a cystectomy. A PET scan was done on 08/30/21 showing no metastatic disease. Unfortunately, he felt that her overall health and co-morbidities were too high risk to perform the procedure and was then sent to oncology at [facility]. Oncology then treated her bladder cancer with a course of chemotherapy and radiation which was completed on 11/25/21. She had a f/u with them on 01/06/22 at [facility] and they stated she had gone from being wheelchair bound to using a walker and was improving physically from her weakness.She was a no show for her next f/u appt with oncology on 01/27/22.To our knowledge she hasn't seen Oncology since 01/17. She is scheduled to see Dr. Mack again next week. There has been no biopsies of the lung nodules to confirm that it is metastatic bladder cancer s/p chemo/radiation treatment. She c/o of incontinence of urine but othewise has no urinary complaints at this time. Review of Systems Gastrointestinal: Gastrointestinal: Reports abdominal pain, Reports bloating, Reports constipation, Reports diarrhea, Reports nausea and Reports vomiting Genitourinary: Genitourinary: Denies hematuria, Denies nocturia, Denies dysuria, Denies pelvic pain, Denies flank pain, Denies urinary incontinence, Denies urinary hesitancy and Denies urinary urgency
[2022-03-06] MEDS: ENOXAPARIN 30 MG/0.3 ML SYRINGE SUB-Q (19:52)
[2022-03-06] MEDS: FAMOTIDINE 20 MG/2 ML VIAL IV PUSH (19:52)
[2022-03-06 20:01] LABS: Glucose Point of Care 112 mg/dl (65-105)
[2022-03-07] VITALS (13 sets, daily range): BP systolic 124–168; BP diastolic 52–90; PULSE 60–98; RESP 14–28; TEMP 36.2–37.6; O2SAT 93–99
--- NOTE | 2022-03-07 01:24 | PC.NURSE ---
Powerhouse Mechanic Helper noted that patient had no output from NG since shift change. vessel manager ordered a KUB to check placement post auscultation r/t absence of air movement. KUB resulted that NG was not in the proper location, optical design engineer tubing to 58cm, which was a 5cm difference from where NG was taped. Per patient, previous RN re-taped NG tube prior to shift change and stated that it didn't feel quite right afterwards. KUB confirmed placement post advancement.
[2022-03-07] MEDS: LACTATED RINGERS 1,000 ML 125 ML IV CONT ×3 (03:01→13:15)
[2022-03-07] MEDS: LEVOTHYROXINE SODIUM 125 MCG TABLET PO (05:36)
[2022-03-07 07:50] LABS: Glucose Point of Care 96 mg/dl (65-105)
[2022-03-07] MEDS: ROSUVASTATIN 10 MG TABLET 20 MG PO (09:55)
[2022-03-07] MEDS: dilTIAZem HCL CD 180 MG CAP.ER.24H PO (09:55)
[2022-03-07] MEDS: FAMOTIDINE 20 MG/2 ML VIAL IV PUSH ×2 (09:56→20:28)
[2022-03-07] MEDS: ENOXAPARIN 30 MG/0.3 ML SYRINGE SUB-Q (09:56)
[2022-03-07 10:07] LABS: Hemoglobin 10.1 g/dL (12.0-15.0); Mean Corpuscular HGB Conc 30.6 g/dl (32-36); Mean Corpuscular Volume 101.2 fl (80-100); Mean Platelet Volume 8.9 fl (7.4-10.4); Platelet Count Result 264 k/mm3 (150-375); Red Blood Count 3.26 M/mm3 (4.2-5.4); Red Cell Distribution Width 14.6 % (11.5-14.5); White Blood Count 8.6 K/mm3 (4.5-10.0)
[2022-03-07 10:24] LABS: Alanine Aminotransferase 12 U/L (6-35); Albumin Level 3.2 g/dL (3.5-5.1); Alkaline Phosphatase 63 U/L (38-126); Anion Gap 5 mmol/L (8-16); Aspartate Amino Transferase 18 U/L (14-36); Bilirubin,Total 0.2 mg/dL (0.2-1.3); Blood Urea Nitrogen 51 mg/dL (7-17); Calcium 8.6 mg/dL (8.4-10.2); Carbon Dioxide 31 mmol/L (22-30); Chloride 95 mmol/L (98-107); Estimated CRCL calculation 22 ml/min; Estimated Glomerular Filt Rate 21; Glucose 92 mg/dL (65-110); Sodium 131 mmol/L (137-145)
[2022-03-07 10:37] LABS: Anisocytosis 1+ (NORMAL); Band Neutrophils Percent 44 % (0-6); Basophils Absolute Manual 0.08 K/mm3 (0.0-0.1); Basophils Percent Manual 1 % (0-1); Giant Platelets Present; Hypochromasia 1+ (NORMAL); Lymphocytes Absolute Manual 0.51 K/mm3 (1.1-4.5); Metamyelocytes Percent 8 %; Monocytes Absolute Manual 0.25 K/mm3 (0.1-0.90); Monocytes Percent Manual 3 % (3-9); Neutrophils Absolute Manual 7.05 K/mm3 (1.7-7.2); Neutrophils Percent Manual 38 % (46-73); Ovalocytes 1+ (NORMAL); Platelet Estimate Adequate (Adequate); Poikilocytosis 1+ (NORMAL); Total Cells Counted 100
[2022-03-07 10:38] LABS: Burr Cells 1+ (NORMAL); Crenated RBC 1+ (NORMAL); Microcytosis 1+ (NORMAL)
--- NOTE | 2022-03-07 11:42 | PM.PNGS ---
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 No need for surgical intervention unless signs of colonic ischemia occur which would be quite unusual. Defer treatment to gastroenterology such as neostigmine as well as colonic decompression. We will sign off. Call if anything further we can be of assistance. Subjective Subjective Date/Time Seen: 03/07/22 11:42 Patient reports: no new complaints, pain is less and bowel movement Review of Systems Review of Systems: All systems reviewed & are unremarkable except as noted in HPI and below Constitutional: Constitutional: Denies chills, Denies fever(s) and Denies night sweats Cardiovascular: Cardiovascular: Denies chest pain and Denies dyspnea Respiratory: Respiratory: Denies cough and Denies dyspnea Gastrointestinal: Gastrointestinal: Reports as per HPI, Reports bloating, Denies GI cramping, Denies nausea and Denies vomiting Exam Const: General: cooperative, comfortable, alert, awake and tired appearing Nutritional Appearance: overweight GI: Inspection: distended and obesity GI Palp: Yes Firmness to palpation present (GI), No Tenderness to palpation present (GI) and No Ascites present Percussion: Yes tympanic to percussion Auscultation: absent bowel sounds Objective Data Vital Signs Vital Signs: Vital Signs - 24 hr 03/06/22 12:00 03/06/22 14:00 03/06/22 16:00 Temperature 36.3 C L Pulse Rate 95 87 93 Respiratory Rate 16 Blood Pressure 153/60 H Pulse Oximetry 97 Oxygen Delivery Oxygen Flow Rate 03/06/22 20:00 03/06/22 20:00 03/06/22 22:00 Temperature 37.6 C H Pulse Rate 92 96 Respiratory Rate 16 Blood Pressure 165/66 H Pulse Oximetry 97 98 Oxygen Delivery Nasal Cannula Oxygen Flow Rate 3 03/07/22 00:00 03/07/22 04:00 03/06/22 21:03 Temperature Pulse Rate 89 98 Respiratory Rate Blood Pressure Pulse Oximetry 96 Oxygen Delivery Nasal Cannula Oxygen Flow Rate 3 03/07/22 05:20 03/07/22 11:33 Temperature 37.6 C Pulse Rate 91 Respiratory Rate 16 Blood Pressure 151/72 H Pulse Oximetry 97 95 Oxygen Delivery Nasal Cannula Oxygen Flow Rate 3 Intake/Output Intake/Output: Intake & Output 03/04/22 03/05/22 03/06/22 03/07/22 23:59 23:59 23:59 23:59 Intake Total 1150 2200 2000 Output Total 1625 100 Balance 5097 904 1725 Meds/Results Medications: Active Medications Generic Name Dose Route Start Last Admin Trade Name Freq PRN Reason Stop Dose Admin Baclofen 5 mg 03/06/22 09:24 Baclofen 5 Mg Tablet PO TID PRN Muscle Spasm Diltiazem HCl 180 mg 03/06/22 09:00 03/07/22 09:55 Diltiazem Hcl Cd 180 Mg Cap.Er.24h PO 180 mg DAILY IRIS Administration Enoxaparin Sodium 30 mg 03/07/22 09:00 03/07/22 09:56 Enoxaparin 30 Mg/0.3 Ml Syringe SUB-Q 30 mg DAILY IRIS Administration Famotidine 20 mg 03/06/22 21:00 03/07/22 09:56 Famotidine 20 Mg/2 Ml Vial IV PUSH 20 mg Q12HR IRIS Administration Lactated Ringer's 1,000 mls @ 125 mls/hr 03/05/22 22:25 03/07/22 09:56 Lr - Lactated Ringers Iv IV CONT 125 mls/hr .Q8H IRIS Administration Levothyroxine Sodium 125 mcg 03/07/22 06:30 03/07/22 05:36 Levothyroxine Sodium 125 Mcg Tablet PO 125 mcg DAILY@0630 IRIS Administration Ondansetron HCl 4 mg 03/06/22 09:01 Ondansetron Inj 4 Mg/2 Ml Vial IV PUSH ONCE PRN Nausea Rosuvastatin Calcium 20 mg 03/06/22 09:00 03/07/22 09:55 Rosuvastatin 10 Mg Tablet PO 20 mg DAILY IRIS Administration
[2022-03-07 13:06] LABS: Glucose Point of Care 84 mg/dl (65-105)
--- NOTE | 2022-03-07 13:16 | WPDANESEPPF ---
Anes - Initial Pre Proc Eval Procedure: Operation Date: 03/06/22 15:00 Proposed Procedures p Transverse Loop Diverting Colostomy - Justin Lucas MD Operation Date: 03/07/22 13:45 Proposed Procedures p Colonoscopy - Adin Royal MD Date/Time: 03/07/22 13:16 Surgeon: Ann Kasper DO Pre Op Diagnosis: LBO,hypoxia Patient Data Age: 81 Gender: F Height: 1.65 m Weight: 103.3 kg Last Vital Signs Temp 98.2 F 03/07/22 13:09 Pulse 96 03/07/22 13:09 Resp 18 03/07/22 13:09 BP 152/52 H 03/07/22 13:09 Pulse Ox 94 03/07/22 13:09 O2 Del Method Nasal Cannula 03/07/22 13:09 O2 Flow Rate 3 03/07/22 13:09 Allergies Allergy/AdvReac Type Severity Reaction Status Date / Time iohexol Allergy Intermediate Itching Verified 03/06/22 09:36 Penicillins Allergy Mild Rash Verified 03/06/22 09:36 Cephalosporins Allergy Hives Verified 03/06/22 09:36 clindamycin Allergy Unknown Verified 03/06/22 09:36 doxycycline Allergy Itching Verified 03/06/22 09:36 risedronate sodium Allergy Swelling Verified 03/06/22 09:36 of the Eye rofecoxib Allergy Headache Verified 03/06/22 09:36 Home Medications Medication Instructions Recorded Confirmed Type multivitamin 1 tablet PO DAILY 03/28/20 01/29/22 History calcium carbonate 500 mg calcium 500 mg PO DAILY 05/02/20 01/29/22 History (1,250 mg) capsule cyanocobalamin (vitamin B-12) 1,000 mcg PO DAILY 09/18/20 01/29/22 History 1,000 mcg tablet folic acid 800 mcg tablet 0.8 mg PO BID 09/18/20 01/29/22 History albuterol sulfate 90 mcg/actuation 2 inh inhalation Q4-6H PRN 06/17/21 01/29/22 Rx aerosol inhaler shortness of breath or wheezing #25.5 grams rosuvastatin 20 mg tablet 20 mg PO DAILY #90 tabs 06/17/21 01/29/22 Rx cholecalciferol (vitamin D3) 25 50 mcg PO DAILY 07/23/21 01/29/22 History mcg (1,000 unit) tablet fexofenadine 180 mg tablet 180 mg PO DAILY 07/29/21 01/29/22 History trazodone 50 mg tablet 50 mg PO HS 07/29/21 01/29/22 History sulfamethoxazole 800 1 tablet PO Q12H #6 tabs 08/01/21 01/29/22 Rx mg-trimethoprim 160 mg tablet bisacodyl 10 mg rectal suppository 10 mg RECTAL DAILY PRN 08/06/21 01/29/22 Rx (Laxative (bisacodyl)) constipation #12 ea iron-vitamin B complex with C tablet PO 12/23/21 01/29/22 History tablet levothyroxine 125 mcg tablet See Rx Instructions .Route 01/03/22 01/29/22 Rx .COMPLEX #90 tabs sitagliptin 50 mg tablet (Januvia) See Rx Instructions .Route 01/20/22 01/29/22 Rx .COMPLEX #90 tabs methylprednisolone 4 mg tablets in See Rx Instructions PO PER PKG DIR 01/23/22 01/29/22 Rx a dose pack (Medrol (Ramu)) #21 ea diltiazem HCl 180 mg See Rx Instructions .Route 01/30/22 Rx capsule,extended release 24 hr .COMPLEX #90 caps baclofen 5 mg tablet 5 mg PO TID PRN muscle spasm #30 02/26/22 Rx tabs baclofen 5 mg tablet 1 tablet PO TID PRN Muscle Spasm 03/06/22 03/06/22 History diltiazem HCl 180 mg 1 cap PO DAILY 03/06/22 03/06/22 History capsule,extended release 24 hr levothyroxine 125 mcg tablet 1 tablet PO DAILY 03/06/22 03/06/22 History pioglitazone 15 mg tablet 1 tablet PO DAILY 03/06/22 03/06/22 History rosuvastatin 20 mg tablet 1 tablet PO DAILY 03/06/22 03/06/22 History sitagliptin 50 mg tablet (Januvia) 1 tablet PO DAILY 03/06/22 03/06/22 History trazodone 50 mg tablet 2 tablet PO HS PRN Insomnia 03/06/22 03/06/22 History Laboratory Tests 03/06/22 03/07/22 03/07/22 19:49 07:45 09:52 WBC 8.6 K/mm3 K/mm3 (4.5-10.0) RBC 3.26 M/mm3 L M/mm3 (4.2-5.4) Hgb 10.1 g/dL L g/dL (12.0-15.0) Hct 33.0 % L % (37.0-47.0) MCV 101.2 fl H fl (80-100) MCH 31.0 pg pg (26-34) MCHC 30.6 g/dl L g/dl (32-36) RDW 14.6 % H % (11.5-14.5) Plt Count 264 k/mm3 k/mm3 (150-375) MPV 8.9 fl fl (7.4-10.4) Immature Gran % (Auto) Not Reportable Neut % (Auto) Not Reportable
[2022-03-07] MEDS: LACTATED RINGERS 1,000 ML 150 ML IV CONT (13:51)
--- NOTE | 2022-03-07 14:06 | PM.IMPN ---
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 Status: Acute Assessment and Plan: Decompressive colonoscopy performed today per GI, results and recommendations to follow (2) Bladder cancer: Code(s): C67.9 - Malignant neoplasm of bladder, unspecified Status: Acute Assessment and Plan: Will need outpatient follow-up from Oncology regarding her pulmonary nodules, cannot tell if these are acute or chronic, could be related to metastatic disease from prior bladder cancer (3) Benign essential hypertension: Code(s): I10 - Essential (primary) hypertension Status: Chronic (4) DM type 2 (diabetes mellitus, type 2): Qualifiers: Diabetes mellitus custodial insulin use: without watermaster use Diabetes mellitus complication status: with kidney complications Diabetes mellitus complication detail: with chronic kidney disease Chronic kidney disease stage: stage 3 (moderate) Qualified Code(s): E11.22 - Type 2 diabetes mellitus with diabetic chronic kidney disease; N18.3 - Chronic kidney disease, stage 3 (moderate) Code(s): E11.9 - Type 2 diabetes mellitus without complications Status: Chronic Assessment and Plan: Accu-Cheks plus sliding scale insulin (5) Hyperlipidemia: Qualifiers: Hyperlipidemia type: mixed hyperlipidemia Qualified Code(s): E78.2 - Mixed hyperlipidemia Code(s): E78.5 - Hyperlipidemia, unspecified Status: Acute (6) Hypothyroidism (acquired): Code(s): E03.9 - Hypothyroidism, unspecified Status: Chronic (7) COPD (chronic obstructive pulmonary disease): Qualifiers: COPD type: unspecified COPD Qualified Code(s): J44.9 - Chronic obstructive pulmonary disease, unspecified Code(s): J44.9 - Chronic obstructive pulmonary disease, unspecified Status: Chronic (8) Morbid obesity due to excess calories: Code(s): E66.01 - Morbid (severe) obesity due to excess calories Status: Chronic (9) Pulmonary nodule: Code(s): R91.1 - Solitary pulmonary nodule Status: Acute Assessment and Plan: Follow-up outpatient with Oncology, could be metastatic from bladder cancer versus benign etiology Subjective Date/time seen: 03/07/22 14:06 Interval history: Patient somewhat uncomfortable with NG tube in place. She is having it decompressive colonoscopy today. No fevers chills or overnight events noted. She states her abdomen feels much better. No chest pain or shortness of breath. Review of Systems Review of Systems: Twelve point review of systems was reviewed and is negative except as noted in the HPI Exam Narrative: General: Patient resting somewhat uncomfortably, NG in place HEENT: Atraumatic, normocephalic, mucous membranes moist CV: Regular rate and rhythm, S1, S2, no murmurs rubs or gallops noted Lungs: Clear to auscultation bilaterally, no rales or crackles noted, no wheezes, good air entry Abdomen: Significant distention noted, mild tenderness to palpation Extremities: Normal to inspection, no edema noted Skin: No rashes noted, no lesions or wounds seen Psych: Euthymic, normal affect Objective Data Vital Signs Vital Signs: Vital Signs - 24 hr 03/06/22 16:00 03/06/22 20:00 03/06/22 20:00 Temperature Pulse Rate 93 92 Respiratory Rate Blood Pressure Pulse Oximetry 97 Oxygen Delivery Nasal Cannula Oxygen Flow Rate 3 03/06/22 22:00 03/07/22 00:00 03/07/22 04:00 Temperature 99.7 F H Pulse Rate 96 89 98 Respiratory Rate 16 Blood Pressure 165/66 H Pulse Oximetry 98 Oxygen Delivery Oxygen Flow Rate 03/06/22 21:03 03/07/22 05:20 03/07/22 11:33 Temperature 99.6 F Pulse Rate 91 Respiratory Rate 16 Blood Pressure 151/72 H Pulse Oximetry 96 97 95 Oxygen Delivery Nasal Cannula Nasal Cannula Oxygen Flow Rate 3 3
[2022-03-07 14:23] LABS: Glucose Point of Care 84 mg/dl (65-105)
[2022-03-07 16:30] LABS: Glucose Point of Care 82 mg/dl (65-105)
[2022-03-07] MEDS: PYRIDOSTIGMINE BROMIDE 60 MG TABLET PO (20:29)
[2022-03-07 21:17] LABS: Glucose Point of Care 217 mg/dl (65-105)
[2022-03-08] VITALS (8 sets, daily range): BP systolic 155–162; BP diastolic 53–68; PULSE 80–94; RESP 16–20; TEMP 36.2–37.7; O2SAT 90–98
[2022-03-08] MEDS: LEVOTHYROXINE SODIUM 125 MCG TABLET PO (06:16)
[2022-03-08] MEDS: PYRIDOSTIGMINE BROMIDE 60 MG TABLET PO ×3 (06:16→21:05)
[2022-03-08 06:52] LABS: Hematocrit 28.6 % (37.0-47.0); Mean Corpuscular HGB Conc 31.5 g/dl (32-36); Mean Corpuscular Hemoglobin 30.9 pg (26-34); Mean Corpuscular Volume 98.3 fl (80-100); Mean Platelet Volume 9.2 fl (7.4-10.4); Platelet Count Result 262 k/mm3 (150-375); Red Blood Count 2.91 M/mm3 (4.2-5.4); Red Cell Distribution Width 14.6 % (11.5-14.5); White Blood Count 11.4 K/mm3 (4.5-10.0)
[2022-03-08 07:01] LABS: Alanine Aminotransferase 10 U/L (6-35); Albumin Level 2.8 g/dL (3.5-5.1); Alkaline Phosphatase 59 U/L (38-126); Anion Gap 4 mmol/L (8-16); Aspartate Amino Transferase 17 U/L (14-36); Bilirubin,Total 0.2 mg/dL (0.2-1.3); Blood Urea Nitrogen 54 mg/dL (7-17); Carbon Dioxide 30 mmol/L (22-30); Chloride 96 mmol/L (98-107); Estimated CRCL calculation 24 ml/min; Estimated Glomerular Filt Rate 24; Glucose 104 mg/dL (65-110); Potassium 4.2 mmol/L (3.4-5.0); Sodium 130 mmol/L (137-145)
[2022-03-08 07:34] LABS: Band Neutrophils Percent 9 % (0-6); Eosinophils Absolute Manual 0.11 K/mm3 (0.02-0.5); Eosinophils Percent Manual 1 % (0-4); Lymphocytes Absolute Manual 1.25 K/mm3 (1.1-4.5); Monocytes Absolute Manual 0.68 K/mm3 (0.1-0.90); Monocytes Percent Manual 6 % (3-9); Neutrophils Absolute Manual 9.34 K/mm3 (1.7-7.2); Neutrophils Percent Manual 73 % (46-73); Total Cells Counted 100
[2022-03-08 07:35] LABS: Anisocytosis 1+ (NORMAL); Platelet Estimate Adequate (Adequate)
[2022-03-08 07:36] LABS: Hypochromasia 1+ (NORMAL); Microcytosis 1+ (NORMAL); Ovalocytes 1+ (NORMAL)
[2022-03-08] MEDS: LACTATED RINGERS 1,000 ML 125 ML IV CONT (09:27)
[2022-03-08] MEDS: ENOXAPARIN 30 MG/0.3 ML SYRINGE SUB-Q (09:28)
[2022-03-08] MEDS: FAMOTIDINE 20 MG/2 ML VIAL IV PUSH ×2 (09:28→21:04)
[2022-03-08] MEDS: dilTIAZem HCL CD 180 MG CAP.ER.24H PO (09:29)
[2022-03-08] MEDS: ROSUVASTATIN 10 MG TABLET 20 MG PO (09:29)
--- NOTE | 2022-03-08 09:48 | WPDANESPN ---
Anes - Prog Note Post-Op Date/Time: 03/08/22 09:48 Vital Signs: Last Vital Signs Temp 37.7 C H 03/08/22 05:23 Pulse 86 03/08/22 05:23 Resp 16 03/08/22 05:23 BP 162/53 H 03/08/22 05:23 Pulse Ox 90 03/08/22 05:23 O2 Del Method Nasal Cannula 03/07/22 14:15 O2 Flow Rate 3 03/07/22 14:15 Pain Score (VAS): 11/07 I/O: Intake & Output 03/07/22 03/08/22 03/08/22 23:59 07:59 15:59 Intake Total 1000 600 Balance 1000 600 Laboratory Tests 03/08/22 06:17 03/08/22 06:17 03/07/22 03/07/22 03/07/22 09:52 09:52 13:04 WBC 8.6 RBC 3.26 L Hgb 10.1 L Hct 33.0 L MCV 101.2 H MCH 31.0 MCHC 30.6 L RDW 14.6 H Plt Count 264 MPV 8.9 Immature Gran % (Auto) Not Reportable Neut % (Auto) Not Reportable Lymph % (Auto) Not Reportable [place] % (Auto) Not Reportable Eos % (Auto) Not Reportable Baso % (Auto) Not Reportable Lymph # (Auto) Not Reportable [place] # (Auto) Not Reportable Eos # (Auto) Not Reportable Baso # (Auto) Not Reportable Abs Immat Gran (auto) Not Reportable Absolute Neuts (auto) Not Reportable Absolute Nucleated RBC Not Reportable Total Counted 100 Neutrophils % (Manual) 38 L Band Neutrophils % 44 H Lymphocytes % (Manual) 6.0 L Monocytes % (Manual) 3 Eosinophils % (Manual) Basophils % (Manual) 1 Metamyelocytes % 8 Nucleated RBC % Not Reportable Abs Neuts (Manual) 7.05 Abs Lymphs (Manual) 0.51 L Abs Monocytes (Manual) 0.25 Absolute Eos (Manual) Abs Basophils (Manual) 0.08 Platelet Estimate Adequate Giant Platelets Present Hypochromasia 1+ Poikilocytosis 1+ Anisocytosis 1+ Microcytosis 1+ Ovalocytes 1+ [place] Cells 1+ Crenated Cell 1+ Sodium 131 L Potassium 5.0 Chloride 95 L Carbon Dioxide 31 H Anion Gap 5 L BUN 51 H Creatinine 2.20 H Estim Creat Clear Calc 22 Estimated GFR 21 L Glucose 92 POC Capillary Glucose 84 Calcium 8.6 Total Bilirubin 0.2 AST 18 ALT 12 Alkaline Phosphatase 63 Total Protein 6.0 L Albumin 3.2 L 03/07/22 03/07/22 03/07/22 14:16 16:27 20:34 WBC RBC Hgb Hct MCV MCH MCHC RDW Plt Count MPV Immature Gran % (Auto) Neut % (Auto) Lymph % (Auto) [place] % (Auto) Eos % (Auto) Baso % (Auto) Lymph # (Auto) [place] # (Auto) Eos # (Auto) Baso # (Auto) Abs Immat Gran (auto) Absolute Neuts (auto) Absolute Nucleated RBC Total Counted Neutrophils % (Manual) Band Neutrophils % Lymphocytes % (Manual) Monocytes % (Manual) Eosinophils % (Manual) Basophils % (Manual) Metamyelocytes % Nucleated RBC % Abs Neuts (Manual) Abs Lymphs (Manual) Abs Monocytes (Manual) Absolute Eos (Manual) Abs Basophils (Manual) Platelet Estimate Giant Platelets Hypochromasia Poikilocytosis Anisocytosis Microcytosis Ovalocytes [place] Cells Crenated Cell Sodium Potassium Chloride Carbon Dioxide Anion Gap BUN Creatinine Estim Creat Clear Calc Estimated GFR Glucose POC Capillary Glucose 84 82 217 H Calcium Total Bilirubin AST ALT Alkaline Phosphatase Total Protein Albumin 03/08/22 03/08/22 06:17 06:17 WBC 11.4 H RBC 2.91 L Hgb 9.0 L Hct 28.6 L MCV 98.3 MCH 30.9 MCHC 31.5 L RDW 14.6 H Plt Count 262 MPV 9.2 Immature Gran % (Auto) Not Reportable Neut % (Auto) Not Reportable Lymph % (Auto) Not Reportable [place] % (Auto) Not Reportable Eos % (Auto) Not Reportable Baso % (Auto) Not Reportable Lymph # (Auto) Not Reportable [place] # (Auto) Not Reportable Eos # (Auto) Not Reportable Baso # (Auto) Not Reportable Abs Immat Gran (auto) Not Reportable Absolute Neuts (auto) Not Reportable Absolute Nucleated RBC Not Reportable Total Counted
--- NOTE | 2022-03-08 11:47 | PM.IMPN ---
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 intake and IV fluids to GI this time (2) Bladder cancer: Code(s): C67.9 - Malignant neoplasm of bladder, unspecified Status: Acute Assessment and Plan: Will need outpatient follow-up from Oncology regarding her pulmonary nodules, cannot tell if these are acute or chronic, could be related to metastatic disease from prior bladder cancer (3) Benign essential hypertension: Code(s): I10 - Essential (primary) hypertension Status: Chronic (4) DM type 2 (diabetes mellitus, type 2): Qualifiers: Diabetes mellitus termination clerk insulin use: without termination clerk use Diabetes mellitus complication status: with kidney complications Diabetes mellitus complication detail: with chronic kidney disease Chronic kidney disease stage: stage 3 (moderate) Qualified Code(s): E11.22 - Type 2 diabetes mellitus with diabetic chronic kidney disease; N18.3 - Chronic kidney disease, stage 3 (moderate) Code(s): E11.9 - Type 2 diabetes mellitus without complications Status: Chronic Assessment and Plan: Accu-Cheks plus sliding scale insulin (5) Hyperlipidemia: Qualifiers: Hyperlipidemia type: mixed hyperlipidemia Qualified Code(s): E78.2 - Mixed hyperlipidemia Code(s): E78.5 - Hyperlipidemia, unspecified Status: Acute (6) Hypothyroidism (acquired): Code(s): E03.9 - Hypothyroidism, unspecified Status: Chronic (7) COPD (chronic obstructive pulmonary disease): Qualifiers: COPD type: unspecified COPD Qualified Code(s): J44.9 - Chronic obstructive pulmonary disease, unspecified Code(s): J44.9 - Chronic obstructive pulmonary disease, unspecified Status: Chronic (8) Morbid obesity due to excess calories: Code(s): E66.01 - Morbid (severe) obesity due to excess calories Status: Chronic (9) Pulmonary nodule: Code(s): R91.1 - Solitary pulmonary nodule Status: Acute Assessment and Plan: Follow-up outpatient with Oncology, could be metastatic from bladder cancer versus benign etiology Subjective Date/time seen: 03/08/22 11:47 Interval history: Patient states she feels little better today than yesterday. Abdominal pain is completely resolved. She is having significant amounts of gas. Distention is somewhat improved. She denies fevers chills overnight events. She states she feels quite weak and is hoping to work with physical therapy so she can avoid going to rehab at discharge. She denies chest pain or shortness of breath. No nausea vomiting or diarrhea. Review of Systems Review of Systems: Twelve point review of systems was reviewed and is negative except as noted in the HPI Exam Narrative: General: Patient resting somewhat uncomfortably, NG in place HEENT: Atraumatic, normocephalic, mucous membranes moist CV: Regular rate and rhythm, S1, S2, no murmurs rubs or gallops noted Lungs: Clear to auscultation bilaterally, no rales or crackles noted, no wheezes, good air entry Abdomen: Significant distention noted, mild tenderness to palpation Extremities: Normal to inspection, no edema noted Skin: No rashes noted, no lesions or wounds seen Psych: Euthymic, normal affect Objective Data Vital Signs Vital Signs: Vital Signs - 24 hr 03/07/22 13:09 03/07/22 13:55 03/07/22 14:05 Temperature 98.2 F Pulse Rate 96 60 98 Respiratory Rate 18 25 H 28 H Blood Pressure 152/52 H 137/65 124/90 Pulse Oximetry 94 99 94 Oxygen Delivery Nasal Cannula Nasal Cannula Nasal Cannula Oxygen Flow Rate 3 3 3 03/07/22 14:15 03/07/22 14:00 03/07/22 16:00 Temper
[2022-03-09] VITALS (13 sets, daily range): BP systolic 153–156; BP diastolic 58–61; PULSE 80–89; RESP 18–22; TEMP 36.6–36.8; O2SAT 82–97
[2022-03-09 02:41] LABS: Glucose Point of Care 193 mg/dl (65-105)
[2022-03-09] MEDS: PYRIDOSTIGMINE BROMIDE 60 MG TABLET PO ×3 (06:29→21:19)
[2022-03-09] MEDS: LEVOTHYROXINE SODIUM 125 MCG TABLET PO (06:29)
[2022-03-09] MEDS: LACTATED RINGERS 1,000 ML 125 ML IV CONT (08:17)
[2022-03-09] MEDS: dilTIAZem HCL CD 180 MG CAP.ER.24H PO (09:03)
[2022-03-09] MEDS: ROSUVASTATIN 10 MG TABLET 20 MG PO (09:03)
[2022-03-09] MEDS: ENOXAPARIN 30 MG/0.3 ML SYRINGE SUB-Q (09:04)
[2022-03-09] MEDS: FAMOTIDINE 20 MG/2 ML VIAL IV PUSH ×2 (09:04→21:19)
[2022-03-09 09:12] LABS: Basophils Absolute Auto 0.1 K/mm3 (0.0-0.1); Basophils Percent Auto 0.5 % (0.2-1.2); Eosinophils Absolute Auto 0.1 K/mm3 (0-0.3); Eosinophils Percent Auto 1.1 % (0-4.4); Hematocrit 29.9 % (37.0-47.0); Hemoglobin 9.2 g/dL (12.0-15.0); Immature Granulocyte Absolute 0.69 K/mm3 (0.00-0.031); Immature Granulocyte Percent A 5.2 % (0-0.5); Lymphocytes Absolute Auto 0.45 K/mm3 (0.9-3.2); Lymphocytes Percent Auto 3.4 % (18.3-44.2); Mean Corpuscular HGB Conc 30.8 g/dl (32-36); Mean Corpuscular Volume 100.7 fl (80-100); Mean Platelet Volume 8.9 fl (7.4-10.4); Monocytes Absolute Auto 0.8 K/mm3 (0.1-0.6); Monocytes Percent Auto 6.2 % (2.6-8.5); Neutrophils Absolute Auto 11.1 K/mm3 (1.3-6.7); Neutrophils Percent Auto 83.6 % (45.5-73.1); Nucleated Red Blood Cells Perc 0.2 % (0.0-0.2); Platelet Count Result 250 k/mm3 (150-375); Red Blood Count 2.97 M/mm3 (4.2-5.4); Red Cell Distribution Width 14.6 % (11.5-14.5); White Blood Count 13.3 K/mm3 (4.5-10.0)
[2022-03-09 09:31] LABS: Alanine Aminotransferase 11 U/L (6-35); Albumin Level 2.8 g/dL (3.5-5.1); Alkaline Phosphatase 65 U/L (38-126); Anion Gap 4 mmol/L (8-16); Aspartate Amino Transferase 18 U/L (14-36); Bilirubin,Total 0.2 mg/dL (0.2-1.3); Blood Urea Nitrogen 49 mg/dL (7-17); Carbon Dioxide 30 mmol/L (22-30); Chloride 96 mmol/L (98-107); Estimated CRCL calculation 23 ml/min; Estimated Glomerular Filt Rate 23; Glucose 132 mg/dL (65-110); Potassium 3.9 mmol/L (3.4-5.0); Sodium 130 mmol/L (137-145)
[2022-03-09 10:40] LABS: Hypochromasia 1+ (NORMAL); Platelet Estimate Adequate (Adequate); Poikilocytosis 1+ (NORMAL)
--- NOTE | 2022-03-09 11:10 | WPDGIPROGNO ---
Progress Note: A&P Assessment and Plan (1) Hx of colonic polyps: Code(s): Z86.010 - Personal history of colonic polyps Status: Acute Assessment and Plan: I was able to find documentation that she had a colonoscopy with removal of the polyps 3 years ago. I did find 1 rectal polyp when I performed her colonoscopy on Thursday. Pathology is still pending on that. 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 As noted in previous notes, she had exploratory surgery at [facility] because of suspected obstruction. Surgery was consulted here and that old records were able to be found showing that this has been a problem in the past. With colonoscopy and decompression I was able to remove a good portion of the air in the transverse colon. I have started her on pyridostigmine, which seems to be helping. I would have her take this for a while for discharge and I will have her follow-up with me in the office in a few weeks 03/[address] an abdominal binder today. Plan for today am going to have an abdominal binder placed to see if we can facilitate expelling more of the a air. Subjective Date/time seen: 03/09/22 11:10 she is tolerating her full liquid diet. I think that we can advance her to regular diet and hopefully, if she tolerates that, consider discharge in the morning. Interval history: Patient states she feels little better today than yesterday. Abdominal pain is completely resolved. She is having significant amounts of gas. Distention is somewhat improved. Exam Const: General: alert Orientation/consciousness: patient oriented x3 Resp: Auscultation: clear to auscultation bilaterally Cardio: Rhythm: regular rhythm GI: Inspection: distended GI Palp: No abdominal tenderness Percussion: Yes tympanic to percussion Auscultation: High-pitched bowel sounds present Neuro: General: patient oriented x3 Objective Data Vital Signs Vital Signs: Vital Signs - 24 hr 03/08/22 14:00 03/08/22 15:08 03/08/22 16:00 Temperature 36.4 C Pulse Rate 88 88 Respiratory Rate 20 Blood Pressure 162/68 H Pulse Oximetry 98 Oxygen Delivery Nasal Cannula Oxygen Flow Rate 4 03/08/22 22:58 03/08/22 20:00 03/09/22 00:00 Temperature 36.2 C L Pulse Rate 92 80 87 Respiratory Rate 20 Blood Pressure 155/65 H Pulse Oximetry 94 Oxygen Delivery Oxygen Flow Rate 03/09/22 04:00 03/09/22 05:53 03/09/22 08:00 Temperature 36.6 C Pulse Rate 84 87 84 Respiratory Rate 22 H Blood Pressure 156/60 H Pulse Oximetry 97 Oxygen Delivery Oxygen Flow Rate 03/09/22 08:00 Temperature Pulse Rate Respiratory Rate Blood Pressure Pulse Oximetry 94 Oxygen Delivery Nasal Cannula Oxygen Flow Rate 3 Intake/Output Intake/Output: Intake & Output 03/06/22 03/07/22 03/08/22 03/09/22 23:59 23:59 23:59 23:59 Intake Total 2200 4050 2180 236 Output Total 1625 100 Balance 575 3950 2180 236 Meds/Results Medications: Active Medications Generic Name Dose Route Start Last Admin Trade Name Freq PRN Reason Stop Dose Admin Baclofen 5 mg 03/06/22 09:24 Baclofen 5 Mg Tablet PO TID PRN Muscle Spasm Diltiazem HCl 180 mg 03/06/22 09:00 03/09/22 09:03 Diltiazem Hcl Cd 180 Mg Cap.Er.24h PO 180 mg DAILY IRIS Administration Enoxaparin Sodium 30 mg 03/07/22 09:00 03/09/22 09:04 Enoxaparin 30 Mg/0.3 Ml Syringe SUB-Q 30 mg DAILY IRIS Administration Famotidine 20 mg 03/06/22 21:00 03/09/22 09:04 Famotidine 20 Mg/2 Ml Vial IV PUSH 20 mg Q12HR IRIS Administration Lactated Ringer's 1,000 mls @ 125 mls/hr 03/05/22 22:25 03/09/22 08:17 Lr - Lactated Ringers Iv IV CONT 125 mls/hr .Q8H IRIS Administration Levothyroxine Sodium 125 mcg 03/07/22 06:30 03/09/22 06:29 Levothyroxine
--- NOTE | 2022-03-09 13:08 | PM.IMPN ---
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 Status: Acute Assessment and Plan: Significant improvement, on Mestinon per GI, continuing to pass excessive amounts of gas, on a regular diet for dinner (2) Bladder cancer: Code(s): C67.9 - Malignant neoplasm of bladder, unspecified Status: Acute Assessment and Plan: Will need outpatient follow-up from Oncology regarding her pulmonary nodules, cannot tell if these are acute or chronic, could be related to metastatic disease from prior bladder cancer (3) Benign essential hypertension: Code(s): I10 - Essential (primary) hypertension Status: Chronic (4) DM type 2 (diabetes mellitus, type 2): Qualifiers: Diabetes mellitus watermelon inspector insulin use: without usp use Diabetes mellitus complication status: with kidney complications Diabetes mellitus complication detail: with chronic kidney disease Chronic kidney disease stage: stage 3 (moderate) Qualified Code(s): E11.22 - Type 2 diabetes mellitus with diabetic chronic kidney disease; N18.3 - Chronic kidney disease, stage 3 (moderate) Code(s): E11.9 - Type 2 diabetes mellitus without complications Status: Chronic Assessment and Plan: Accu-Cheks plus sliding scale insulin (5) Hyperlipidemia: Qualifiers: Hyperlipidemia type: mixed hyperlipidemia Qualified Code(s): E78.2 - Mixed hyperlipidemia Code(s): E78.5 - Hyperlipidemia, unspecified Status: Acute (6) Hypothyroidism (acquired): Code(s): E03.9 - Hypothyroidism, unspecified Status: Chronic (7) COPD (chronic obstructive pulmonary disease): Qualifiers: COPD type: unspecified COPD Qualified Code(s): J44.9 - Chronic obstructive pulmonary disease, unspecified Code(s): J44.9 - Chronic obstructive pulmonary disease, unspecified Status: Chronic (8) Morbid obesity due to excess calories: Code(s): E66.01 - Morbid (severe) obesity due to excess calories Status: Chronic (9) Pulmonary nodule: Code(s): R91.1 - Solitary pulmonary nodule Status: Acute Assessment and Plan: Follow-up outpatient with Oncology, could be metastatic from bladder cancer versus benign etiology Subjective Date/time seen: 03/09/22 13:08 Interval history: Patient states she still continues to feel significantly better. No abdominal pain. Still with significant distension. She is passing gas and stool regularly. She feels excessively weak but is refusing rehab at this time. Currently doing OT with the therapist. Review of Systems Review of Systems: Twelve point review of systems was reviewed and is negative except as noted in the HPI Exam Narrative: General: Patient resting somewhat uncomfortably, NG in place HEENT: Atraumatic, normocephalic, mucous membranes moist CV: Regular rate and rhythm, S1, S2, no murmurs rubs or gallops noted Lungs: Clear to auscultation bilaterally, no rales or crackles noted, no wheezes, good air entry Abdomen: Significant distention noted, no tenderness to palpation, no rebounding or guarding, tympanic bowel sounds throughout Extremities: Normal to inspection, no edema noted Skin: No rashes noted, no lesions or wounds seen Psych: Euthymic, normal affect Objective Data Vital Signs Vital Signs: Vital Signs - 24 hr 03/08/22 14:00 03/08/22 15:08 03/08/22 16:00 Temperature 97.6 F Pulse Rate 88 88 Respiratory Rate 20 Blood Pressure 162/68 H Pulse Oximetry 98 Oxygen Delivery Nasal Cannula Oxygen Flow Rate 4 03/08/22 22:58 03/08/22 20:00 03/09/22 00:00 Temperature 97.2 F L Pulse Rate 92 80 87 Respiratory Rate 20 Blood Pressure 155/65 H Pulse Oximetry 94 Oxygen Delivery Oxygen Flow Rate 03/09/22 04:00 03/09/22 05:53 03/09/22 08:00 Temperature 97.8 F Pulse Rate 84 87 84
[2022-03-09 21:30] LABS: Glucose Point of Care 197 mg/dl (65-105)
[2022-03-10] VITALS (10 sets, daily range): BP systolic 126–179; BP diastolic 52–87; PULSE 65–88; RESP 14–18; TEMP 36.7–37.5; O2SAT 92–97
[2022-03-10] MEDS: PYRIDOSTIGMINE BROMIDE 60 MG TABLET PO ×2 (06:14→13:30)
[2022-03-10] MEDS: LEVOTHYROXINE SODIUM 125 MCG TABLET PO (06:14)
[2022-03-10 07:48] LABS: Glucose Point of Care 136 mg/dl (65-105)
[2022-03-10] MEDS: FAMOTIDINE 20 MG/2 ML VIAL IV PUSH ×2 (09:37→21:06)
[2022-03-10] MEDS: ENOXAPARIN 30 MG/0.3 ML SYRINGE SUB-Q (09:37)
[2022-03-10] MEDS: dilTIAZem HCL CD 180 MG CAP.ER.24H PO (09:37)
[2022-03-10] MEDS: ROSUVASTATIN 10 MG TABLET 20 MG PO (09:37)
[2022-03-10 11:28] LABS: Glucose Point of Care 184 mg/dl (65-105)
--- NOTE | 2022-03-10 11:39 | PM.IMPN ---
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 Status: Acute Assessment and Plan: on Mestinon per GI, continuing to pass excessive amounts of gas, on a regular diet, feeling a little worse today, GI talked about placing an abdominal binder yesterday (2) Bladder cancer: Code(s): C67.9 - Malignant neoplasm of bladder, unspecified Status: Acute Assessment and Plan: Will need outpatient follow-up from Oncology regarding her pulmonary nodules, cannot tell if these are acute or chronic, could be related to metastatic disease from prior bladder cancer (3) Benign essential hypertension: Code(s): I10 - Essential (primary) hypertension Status: Chronic (4) DM type 2 (diabetes mellitus, type 2): Qualifiers: Diabetes mellitus long distance operator insulin use: without long distance operator use Diabetes mellitus complication status: with kidney complications Diabetes mellitus complication detail: with chronic kidney disease Chronic kidney disease stage: stage 3 (moderate) Qualified Code(s): E11.22 - Type 2 diabetes mellitus with diabetic chronic kidney disease; N18.3 - Chronic kidney disease, stage 3 (moderate) Code(s): E11.9 - Type 2 diabetes mellitus without complications Status: Chronic Assessment and Plan: Accu-Cheks plus sliding scale insulin, fasting blood sugar 132 yesterday, this morning it was 136, well controlled (5) Hyperlipidemia: Qualifiers: Hyperlipidemia type: mixed hyperlipidemia Qualified Code(s): E78.2 - Mixed hyperlipidemia Code(s): E78.5 - Hyperlipidemia, unspecified Status: Acute (6) Hypothyroidism (acquired): Code(s): E03.9 - Hypothyroidism, unspecified Status: Chronic (7) COPD (chronic obstructive pulmonary disease): Qualifiers: COPD type: unspecified COPD Qualified Code(s): J44.9 - Chronic obstructive pulmonary disease, unspecified Code(s): J44.9 - Chronic obstructive pulmonary disease, unspecified Status: Chronic (8) Morbid obesity due to excess calories: Code(s): E66.01 - Morbid (severe) obesity due to excess calories Status: Chronic (9) Pulmonary nodule: Code(s): R91.1 - Solitary pulmonary nodule Status: Acute Assessment and Plan: Follow-up outpatient with Oncology, could be metastatic from bladder cancer versus benign etiology Subjective Date/time seen: 03/10/22 11:39 Interval history: Patient lying in bed feeling tired. She states she was up moving around this morning and now feels very fatigued. Her pain feels a little worse today than yesterday. She will slightly more distended. She is passing gas but no more stool. No fevers or chills. No nausea vomiting or diarrhea. No chest pain or shortness of breath. No events noted overnight. Review of Systems Review of Systems: Twelve point review of systems was reviewed and is negative except as noted in the HPI Exam Narrative: General: Patient resting somewhat uncomfortably, NG in place HEENT: Atraumatic, normocephalic, mucous membranes moist CV: Regular rate and rhythm, S1, S2, no murmurs rubs or gallops noted Lungs: Clear to auscultation bilaterally, no rales or crackles noted, no wheezes, good air entry Abdomen: Significant distention noted, mild tenderness to palpation diffusely Extremities: Normal to inspection, no edema noted Skin: No rashes noted, no lesions or wounds seen Psych: Euthymic, normal affect Objective Data Vital Signs Vital Signs: Vital Signs - 24 hr 03/09/22 12:00 03/09/22 13:15 03/09/22 14:24 Temperature Pulse Rate 83 Respiratory Rate Blood Pressure Pulse Oximetry 94 82 L Oxygen Delivery Nasal Cannula Nasal Cannula Oxygen Flow Rate 1 1 03/09/22 14:25 03/09/22 14:33 03/09/22 16:00 Temperature 98.3 F Pulse Rate 80 87 Respiratory Rate 20 Blood Pressu
--- NOTE | 2022-03-10 15:09 | WPDGIPROGNO ---
Progress Note: A&P Assessment and Plan (1) Hx of colonic polyps: Code(s): Z86.010 - Personal history of colonic polyps Status: Acute Assessment and Plan: I was able to find documentation that she had a colonoscopy with removal of the polyps 3 years ago. I did find 1 rectal polyp when I performed her colonoscopy on Thursday. Pathology is still pending on that. 03/10 the polyp was inflammatory. 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 As noted in previous notes, she had exploratory surgery at [facility] because of suspected obstruction. Surgery was consulted here and that old records were able to be found showing that this has been a problem in the past. With colonoscopy and decompression I was able to remove a good portion of the air in the transverse colon. I have started her on pyridostigmine, which seems to be helping. I would have her take this for a while for discharge and I will have her follow-up with me in the office in a few weeks 03/[address] an abdominal binder today. 03/10 great response to medication and binder. Today's x-ray shows a normal gas pattern. I told her that it appears her pseudo-obstruction has completely resolved. From my perspective she could be discharged. She is aware that this condition and in May likely come back. I will change her pyridostigmine to once a day. I would like to see her in the office in 4 weeks. (3) COPD (chronic obstructive pulmonary disease): Qualifiers: COPD type: unspecified COPD Qualified Code(s): J44.9 - Chronic obstructive pulmonary disease, unspecified Code(s): J44.9 - Chronic obstructive pulmonary disease, unspecified Status: Chronic Assessment and Plan: To me she seems a bit more dyspneic today. She speaks in short sentences. She says she hopes to be going home tomorrow. I do not think she is on oxygen at home. Subjective Date/time seen: 03/10/22 15:09 Interval history: Patient states she feels little better today than yesterday. Abdominal pain is completely resolved. She is having significant amounts of gas. Distention is greatly improved. normal gas pattern seen on today's x-ray. She has been wearing the binder since yesterday. Exam Const: General: alert Orientation/consciousness: patient oriented x3 Resp: Auscultation: clear to auscultation bilaterally Cardio: Rhythm: regular rhythm GI: GI Palp: No abdominal tenderness and Yes Soft to palpation Percussion: Yes normal to percussion Auscultation: normal bowel sounds Neuro: General: patient oriented x3 Objective Data Vital Signs Vital Signs: Vital Signs - 24 hr 03/09/22 16:00 03/09/22 19:05 03/09/22 19:31 Temperature 36.7 C Pulse Rate 87 87 Respiratory Rate 18 Blood Pressure 153/58 H Pulse Oximetry 91 91 Oxygen Delivery Nasal Cannula Oxygen Flow Rate 2 03/09/22 20:00 03/10/22 00:00 03/10/22 04:00 Temperature Pulse Rate 89 82 88 Respiratory Rate Blood Pressure Pulse Oximetry Oxygen Delivery Oxygen Flow Rate 03/10/22 06:00 03/10/22 09:35 03/10/22 09:35 Temperature 37.0 C Pulse Rate 65 87 Respiratory Rate 14 Blood Pressure 126/87 Pulse Oximetry 97 93 Oxygen Delivery Nasal Cannula Oxygen Flow Rate 2 03/10/22 14:00 Temperature 36.7 C Pulse Rate 82 Respiratory Rate 16 Blood Pressure 179/52 H Pulse Oximetry 94 Oxygen Delivery Oxygen Flow Rate Intake/Output Intake/Output: Intake & Output 03/07/22 03/08/22 03/09/22 03/10/22 23:59 23:59 23:59 23:59 Intake Total 4050 2180 626 1122 Output Total 100 Balance 3950 2180 626 1122 Meds/Results Medications: Active Medications Generic Name Dose Route Start Last Admin Trade Name Freq PRN
[2022-03-10 16:29] LABS: Glucose Point of Care 205 mg/dl (65-105)
--- NOTE | 2022-03-10 17:51 | PCOTNOTE ---
Decrease in frequency of occupational therapy treatment, as pt. displays limited interest and participation in therapy sessions
[2022-03-10 20:56] LABS: Glucose Point of Care 165 mg/dl (65-105)
[2022-03-11] VITALS (11 sets, daily range): BP systolic 154–168; BP diastolic 57–69; PULSE 77–84; RESP 16–22; TEMP 36.6–37.1; O2SAT 90–95
[2022-03-11] MEDS: LEVOTHYROXINE SODIUM 125 MCG TABLET PO (05:47)
[2022-03-11 08:02] LABS: Glucose Point of Care 134 mg/dl (65-105)
[2022-03-11] MEDS: ROSUVASTATIN 10 MG TABLET 20 MG PO (09:13)
[2022-03-11] MEDS: FAMOTIDINE 20 MG/2 ML VIAL IV PUSH ×2 (09:13→21:05)
[2022-03-11] MEDS: ENOXAPARIN 30 MG/0.3 ML SYRINGE SUB-Q (09:13)
[2022-03-11] MEDS: PYRIDOSTIGMINE BROMIDE 60 MG TABLET PO (09:13)
[2022-03-11] MEDS: dilTIAZem HCL CD 180 MG CAP.ER.24H PO (09:13)
[2022-03-11 11:47] LABS: Glucose Point of Care 211 mg/dl (65-105)
[2022-03-11] MEDS: FUROSEMIDE INJ 40 MG/4 ML VIAL IV PUSH (13:39)
--- NOTE | 2022-03-11 14:06 | PM.DS ---
DS: Admitting Diagnosis Discharge Date March 11, 2022 Admitting Diagnosis Large bowel obstruction DS: Discharge Diagnosis Discharge Diagnosis (1) Benjamin's syndrome: Code(s): K59.8 - Other specified functional intestinal disorders Status: Acute Assessment and Plan: on Mestinon per GI, continuing to pass excessive amounts of gas, on a regular diet, feeling a little worse today, GI talked about placing an abdominal binder yesterday (2) Bladder cancer: Code(s): C67.9 - Malignant neoplasm of bladder, unspecified Status: Acute Assessment and Plan: Will need outpatient follow-up from Oncology regarding her pulmonary nodules, cannot tell if these are acute or chronic, could be related to metastatic disease from prior bladder cancer (3) Benign essential hypertension: Code(s): I10 - Essential (primary) hypertension Status: Chronic (4) DM type 2 (diabetes mellitus, type 2): Qualifiers: Chronic kidney disease stage: stage 3 (moderate) Diabetes mellitus complication detail: with chronic kidney disease Diabetes mellitus complication status: with kidney complications Diabetes mellitus tank terminal gauger insulin use: without senior care use Qualified Code(s): E11.22 - Type 2 diabetes mellitus with diabetic chronic kidney disease; N18.3 - Chronic kidney disease, stage 3 (moderate) Code(s): E11.9 - Type 2 diabetes mellitus without complications Status: Chronic Assessment and Plan: Accu-Cheks plus sliding scale insulin, fasting blood sugar 132 yesterday, this morning it was 136, well controlled (5) Hyperlipidemia: Qualifiers: Hyperlipidemia type: mixed hyperlipidemia Qualified Code(s): E78.2 - Mixed hyperlipidemia Code(s): E78.5 - Hyperlipidemia, unspecified Status: Acute (6) Hypothyroidism (acquired): Code(s): E03.9 - Hypothyroidism, unspecified Status: Chronic (7) COPD (chronic obstructive pulmonary disease): Qualifiers: COPD type: unspecified COPD Qualified Code(s): J44.9 - Chronic obstructive pulmonary disease, unspecified Code(s): J44.9 - Chronic obstructive pulmonary disease, unspecified Status: Chronic (8) Morbid obesity due to excess calories: Code(s): E66.01 - Morbid (severe) obesity due to excess calories Status: Chronic (9) Pulmonary nodule: Code(s): R91.1 - Solitary pulmonary nodule Status: Acute Assessment and Plan: Follow-up outpatient with Oncology, could be metastatic from bladder cancer versus benign etiology DS: Summary Hospital Course Hospital Course: 81-year-old female with past medical history significant for COPD, CKD, diabetes, rheumatoid arthritis, hypertension 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 She had abdominal distention is nausea. In the ER, CT scan showed a large bowel obstruction with a transition point and she was scheduled to the OR for diverting colostomy. However, upon chart review, it would found that she had a history of pseudo-obstruction secondary to Marielle syndrome and this was thought to be the diagnosis at this time as well. Therefore General surgery essentially signed off after placing an NG tube. GI was also consulted and took patient for decompressive colonoscopy. Patient responded quite well to the decompressive colonoscopy and gradually was able to increase her p.o. intake as well as her flatus to decrease her bloating. She was started on Mestinon to assist her recovery. She gradually was able to return to normal bowel movements and the distention and pain dramatically decreased. An abdominal binder was added for further bloating assistance. She did get somewhat weak during her stay and so she was discharged in good condition to rehab facility to become stronger after discharge. She will be closely followed outpatient by GI cont
[2022-03-11 15:35] LABS: EDCOVIDSCREEN Negative (Negative)
[2022-03-11 17:01] LABS: Glucose Point of Care 196 mg/dl (65-105)
--- NOTE | 2022-03-11 19:54 | PC.NURSE ---
03/11/221953 pt resting in bed. resp even and nonlabored. nasal cannula reapplied pt did not have on. asked pt if she was sob pt denies stating she is just really tired. blood sugar checked it is 192.
--- NOTE | 2022-03-11 21:39 | PC.NURSE ---
03/11/222138 [facility] here to transport pt to [facility]. pt has all belongings. iv site removed fully intact.
[2022-03-12 07:43] LABS: Glucose Point of Care 192 mg/dl (65-105)
== END 2022-03-11 21:39 | DRG 391 ==
LOC: ANHED 22:01 → ANH3MEDSUR 03-06 02:21
PROVIDERS: Internal Medicine Gastroenterology; Admitting Provider Internal Medicine; Emergency Provider Emergency Medicine; PCP Internal Medicine; Visit Provider Student in an Organized Health Care Education/Training Program
PROC: 0DJD8ZZ Inspection of Lower Intestinal Tract, Via Natural or Artificial Opening Endoscopic (ICD-10-PCS; CPT 45378; principal; 2022-03-07 13:45)
DX: K59.81 Ogilvie syndrome (principal); J96.01 Acute respiratory failure with hypoxia; K56.699 Other intestinal obstruction unspecified as to partial versus complete obstruction; C78.00 Secondary malignant neoplasm of unspecified lung; J44.1 Chronic obstructive pulmonary disease with (acute) exacerbation; E11.22 Type 2 diabetes mellitus with diabetic chronic kidney disease; I12.9 Hypertensive chronic kidney disease with stage 1 through stage 4 chronic kidney disease, or unspecified chronic kidney disease; N18.30 Chronic kidney disease, stage 3 unspecified; E78.2 Mixed hyperlipidemia; E78.5 Hyperlipidemia, unspecified; E03.9 Hypothyroidism, unspecified; D12.8 Benign neoplasm of rectum; Z20.822 Contact with and (suspected) exposure to COVID-19; E66.01 Morbid (severe) obesity due to excess calories; K59.39 Other megacolon; M06.9 Rheumatoid arthritis, unspecified; M19.90 Unspecified osteoarthritis, unspecified site; D64.9 Anemia, unspecified; D72.829 Elevated white blood cell count, unspecified; Z85.51 Personal history of malignant neoplasm of bladder; Z86.010 Personal history of colon polyps; Z86.718 Personal history of other venous thrombosis and embolism; M54.16 Radiculopathy, lumbar region; Z85.42 Personal history of malignant neoplasm of other parts of uterus; Z90.710 Acquired absence of both cervix and uterus; Z96.651 Presence of right artificial knee joint; Z90.49 Acquired absence of other specified parts of digestive tract; Z87.891 Personal history of nicotine dependence; Z68.37 Body mass index [BMI] 37.0-37.9, adult
CPT/HCPCS: 36415; 71046; 74018; 74176; 74270; 80053; 82948; 83605; 83690; 85025; 86850; 86900; 86901; 87040; 87426; 87502; 88305; 93005; 94640; 96361; 96365; 96375; 97110; 97161; 97165; 97530; 97535; 99291; A9270; C9803; J0744; J1650; J1940; J2405; J2543; J2704; J7120; J7512; U0003; U0005

== ENCOUNTER 2022-03-26 20:10 | Inpatient (IN) | payer MEDICARE, BC, SELFPAY ==
--- NOTE | ~2022-03-26 | US_ITS ---
EXAMINATION: US renal BI DATE: 03/27/2022 17:19 INDICATION: Acute kidney injury TECHNIQUE: Multiple grayscale and Doppler ultrasound images of the kidneys were obtained. COMPARISON: 11/21/2020 FINDINGS: The right kidney measures 10.7 x 5.2 cm and contains three cysts. The left kidney measures 10.9 x 5.5 x 5.9 cm. The kidneys demonstrate normal parenchymal echogenicity. There is no hydronephro sis. The bladder is decompressed by Quiroga catheter. IMPRESSION: 1. Cysts of the right kidney, otherwise normal kidneys without hydronephrosis. Reviewed, dictated and finalized at location F.
--- NOTE | ~2022-03-26 | XR_ITS ---
EXAMINATION: XR fl guide central line place DATE: 04/01/2022 15:20 CDT INDICATION: INSERT DYALISIS CATH . TECHNIQUE: 2 fluoroscopic images of the chest were obtained during dialysis catheter insertion perfor med by the surgeon. I was not present in the operating room. Fluoroscopy exposure time was 55.2 secon ds. Cumulative dose was 15.76 mGy. COMPARISON: None FINDINGS: Right IJ dialysis catheter, tip in the right atrium. IMPRESSION: Fluoroscopic documentation of dialysis catheter insertion. Please refer to the operative note for com plete procedural details. Reviewed, dictated and finalized at location K. IMPRESSION: Fluoroscopic documentation of dialysis catheter insertion. Please refer to the operative note for complete procedural details.
--- NOTE | ~2022-03-26 | XR_ITS ---
EXAMINATION: XR chest 1V portable DATE: 04/08/2022 14:22 INDICATION: Cough. No evident intrauterine . TECHNIQUE: frontal view of the chest was obtained. COMPARISON: Chest radiograph dated 04/01/2022 FINDINGS: Persistent consolidation in the left lower lung zone with blunting at the costophrenic angle consiste nt with small to moderate-sized left pleural effusion. More patchy/nodular airspace opacities in the mid and lower lung zones. Small right pleural effusion with blunting at the costophrenic angle. No pn eumothorax. The cardiomediastinal silhouette is within normal limits accounting for AP technique and slight leftward rotation of the patient. A large-bore dual-lumen right internal jugular central venou s catheter with distal tip near the superior cavoatrial junction. Severe degenerative skeletal change s in the thoracic spine and bilateral shoulders. IMPRESSION: 1. Small right and moderate left pleural effusions with associated basilar atelectasis and/or pneumon ia. 2. More patchy/nodular opacities in the bilateral mid and lower lung zones which could be related to metastatic disease or pneumonia. Reviewed, dictated and finalized at location B. IMPRESSION: 1. Small right and moderate left pleural effusions with associated basilar atel ectasis and/or pneumonia. 2. More patchy/nodular opacities in the bilateral mid and lower lung zones whic h could be related to metastatic disease or pneumonia.
--- NOTE | ~2022-03-26 | US_ITS ---
EXAMINATION: US venous doppler [facility] DATE: 03/27/2022 17:20 INDICATION: Bilateral lower limb swelling TECHNIQUE: Dominguez scale images without and with compression and Doppler images of the bilateral lower e xtremity veins were obtained. COMPARISON: 12/07/2019 FINDINGS: The right common femoral vein, profunda femoral vein, femoral vein, popliteal vein, peroneal trunk, p osterior tibial veins, and greater saphenous vein are patent. The left common femoral vein, profunda femoral vein, femoral vein, popliteal vein, peroneal trunk, po sterior tibial veins, and greater saphenous vein are patent. IMPRESSION: 1. Patent bilateral lower extremity veins. No evidence of deep venous thrombosis. Reviewed, dictated and finalized at location F. IMPRESSION: 1. Patent bilateral lower extremity veins. No evidence of deep venous thrombosi s.
--- NOTE | ~2022-03-26 | XR_ITS ---
EXAMINATION: XR chest 1V portable Exam Date/Time: 03/30/2022 8:35 CDT HISTORY: SOB Comparison: 03/26/2022. RESULT: Lines, tubes, and devices: None. Lungs and pleura: Decreased diffuse bilateral reticular opacities. Stable bilateral angle blunting a nd pulmonary nodules. Cardiomediastinal silhouette: Stable cardiomediastinal silhouette. Other: No acute osseous or upper abdominal finding. IMPRESSION: Improving pulmonary edema, otherwise unchanged. Reviewed, dictated and finalized at location K.
--- NOTE | ~2022-03-26 | XR_ITS ---
EXAMINATION: XR chest 1V portable Exam Date/Time: 03/26/2022 21:45 CDT HISTORY: SOB. HX OF BLADDER CANCER, HTN, COPD Comparison: 03/05/2022. RESULT: Lines, tubes, and devices: None. Lungs and pleura: Increased diffuse groundglass and reticular opacities overlying slightly increased bilateral angle blunting, and pulmonary metastatic disease. Cardiomediastinal silhouette: Stable partially obscured cardiomediastinal silhouette. Other: No acute osseous or upper abdominal finding. IMPRESSION: Worsening pulmonary opacities may reflect pulmonary edema with slightly increased small bilateral eff usions. Reviewed, dictated and finalized at location K. IMPRESSION: Worsening pulmonary opacities may reflect pulmonary edema with slightly increas ed small bilateral effusions.
--- NOTE | ~2022-03-26 | XR_ITS ---
EXAMINATION: XR chest port-a-cath/central INDICATION: Dialysis catheter insertion TECHNIQUE: Portable AP chest at 1632 hours COMPARISON: 03/30/2022 FINDINGS: A right internal jugular dialysis catheter has been inserted which ends with its tip in the right atrium. Cardiomegaly is noted. There is a mild diffuse interstitial pattern. Small pleural eff usions are present. There is no pneumothorax. There are multiple nodules scattered throughout all zon es of the lungs. 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 IMPRESSION: 1. Right internal jugular dialysis catheter ending with its tip in the right atrium. No pneumothorax. 2. Mild diffuse interstitial pattern, likely pulmonary edema. 3. Small pleural effusions. 4. Scattered pulmonary nodules, consistent with metastatic disease. Reviewed, dictated and finalized at location B. IMPRESSION: 1. Right internal jugular dialysis catheter ending with its tip in the right at rium. No pneumothorax. 2. Mild diffuse interstitial pattern, likely pulmonary edema. 3. Small pleural effusions. 4. Scattered pulmonary nodules, consistent with metastatic disease.
[2022-03-26 20:13] VITALS: BP 155/58; PULSE 72; RESP 20; TEMP 36.4; O2SAT 94
--- NOTE | 2022-03-26 20:41 | ED.GENADULT ---
HPI - General Adult General Chief complaint: Recheck/Abnormal Lab/Rx Stated complaint: ABN LABS, WORSE PEDAL EDEMA Time Seen by Provider: 03/26/22 20:19 History of Present Illness HPI narrative: 81-year-old female presenting to the emergency department for local ulcer home for worsening edema, shortness of breath and abnormal labs. Patient was admitted to our hospital approximately 3 weeks ago and was diagnosed with a pseudoobstruction. Patient states that she has been staying in a shelter since that time. Patient does have a history of asthma and states that since her hospitalization she has been on 4 L of oxygen by nasal cannula at the shelter. Patient states over the last few days she has had worsening lower extremity edema. Patient has been started on Lasix at the shelter. Patient does not report any prior history of congestive heart failure. Patient does report some shortness of breath but denies any associated chest pain. Patient denies any associated nausea vomiting diarrhea or abdominal pain. Patient does report that her lower extremity edema is worsened than normal. Related Data Home Medications Medication Instructions Recorded Confirmed multivitamin 1 tablet PO DAILY 03/28/20 03/27/22 calcium carbonate 500 mg calcium 500 mg PO DAILY 05/02/20 03/27/22 (1,250 mg) capsule cyanocobalamin (vitamin B-12) 1,000 mcg PO DAILY 09/18/20 03/27/22 1,000 mcg tablet folic acid 800 mcg tablet 0.8 mg PO BID 09/18/20 03/27/22 cholecalciferol (vitamin D3) 25 50 mcg PO DAILY 07/23/21 03/27/22 mcg (1,000 unit) tablet fexofenadine 180 mg tablet 180 mg PO DAILY 07/29/21 03/27/22 iron-vitamin B complex with C 1 tablet PO DAILY 12/23/21 03/27/22 tablet diltiazem HCl 180 mg 1 cap PO DAILY 03/06/22 03/27/22 capsule,extended release 24 hr levothyroxine 125 mcg tablet 1 tablet PO DAILY 03/06/22 03/27/22 pioglitazone 15 mg tablet 2 tablet PO DAILY 03/06/22 03/27/22 sitagliptin 50 mg tablet (Januvia) 1 tablet PO DAILY 03/06/22 03/27/22 trazodone 50 mg tablet 2 tablet PO HS 03/06/22 03/27/22 furosemide 20 mg tablet 20 mg PO DAILY 03/27/22 03/27/22 lidocaine 4 % topical patch 1 patch topical DAILY 03/27/22 03/27/22 (Blue-Emu Lidocaine Patch) sodium chloride 0.65 % nasal spray 1 spray intranasal Q4H PRN 03/27/22 03/27/22 aerosol (Deep Sea Nasal) Congestion Allergies Allergy/AdvReac Type Severity Reaction Status Date / Time iohexol Allergy Intermediate Itching Verified 03/06/22 09:36 Penicillins Allergy Mild Rash Verified 03/06/22 09:36 Cephalosporins Allergy Hives Verified 03/06/22 09:36 clindamycin Allergy Unknown Verified 03/06/22 09:36 doxycycline Allergy Itching Verified 03/06/22 09:36 risedronate sodium Allergy Swelling Verified 03/06/22 09:36 of the Eye rofecoxib AdvReac Headache Verified 03/26/22 20:56 Review of Systems Review of Systems: CONSTITUTIONAL: Denies fever, chills, or sweats. EYES: Denies visual changes, redness, or discharge. ENT: Denies rhinorrhea, congestion, sore throat, or otalgia. CARDIOVASCULAR: Worsening shortness of breath and edema, see HPI RESPIRATORY: Denies cough or dyspnea. GASTROINTESTINAL: Denies abdominal pain, nausea, vomiting, or diarrhea. GENITOURINARY: Denies dysuria or hematuria. SKIN: Denies rash or itching. MUSCULOSKELETAL: Denies back pain, joint pain, or myalgia. NEUROLOGIC: Denies headache, numbness, or weakness. [facility] Past Medical History Medical History Anemia Arthritis Asthma Back pain Benign essential hypertension Bladder cancer s/p chemoradiation therapy concluded in October 2021 Bronchitis Cataracts, bilateral Chronic back pain Chronic kidney disease, stage 3 With baseline creatinine between 1.2-1.4 Compression fracture of thoracic spine, non-traumatic COPD (chronic obstructive pulmonary disease) DM type 2 (diabetes mellitus, type 2) DVT (deep venous thrombosis) LLE Eczema Elevated ho
[2022-03-26 20:51] VITALS: RESP 20; O2SAT 95
[2022-03-26] MEDS: FUROSEMIDE INJ 40 MG/4 ML VIAL IV PUSH (20:52)
[2022-03-26 21:00] LABS: Hematocrit 26.2 % (37.0-47.0); Mean Corpuscular HGB Conc 30.5 g/dl (32-36); Mean Corpuscular Hemoglobin 30.3 pg (26-34); Mean Corpuscular Volume 99.2 fl (80-100); Mean Platelet Volume 9.6 fl (7.4-10.4); Platelet Count Result 188 k/mm3 (150-375); Red Blood Count 2.64 M/mm3 (4.2-5.4); Red Cell Distribution Width 14.6 % (11.5-14.5); White Blood Count 11.9 K/mm3 (4.5-10.0)
[2022-03-26 21:10] LABS: Alanine Aminotransferase 16 U/L (6-35); Albumin Level 2.7 g/dL (3.5-5.1); Alkaline Phosphatase 42 U/L (38-126); Anion Gap 4 mmol/L (8-16); Aspartate Amino Transferase 20 U/L (14-36); Bilirubin,Total < 0.1 mg/dL (0.2-1.3); Blood Urea Nitrogen 88 mg/dL (7-17); Calcium 7.9 mg/dL (8.4-10.2); Carbon Dioxide 29 mmol/L (22-30); Chloride 96 mmol/L (98-107); Estimated CRCL calculation 14 ml/min; Estimated Glomerular Filt Rate 13; Glucose 262 mg/dL (65-110); Potassium 5.1 mmol/L (3.4-5.0); Sodium 129 mmol/L (137-145)
[2022-03-26 21:14] VITALS: PULSE 81; RESP 28
[2022-03-26] MEDS: ALBUTEROL SULFATE NEB 2.5 MG/3 ML INH 5 MG INHALATION ×3 (21:14→21:16)
[2022-03-26 21:15] LABS: Band Neutrophils Percent 6 % (0-6); Lymphocytes Absolute Manual 0.23 K/mm3 (1.1-4.5); Monocytes Absolute Manual 0.23 K/mm3 (0.1-0.90); Monocytes Percent Manual 2 % (3-9); Neutrophils Absolute Manual 11.42 K/mm3 (1.7-7.2); Neutrophils Percent Manual 90 % (46-73); Total Cells Counted 100
[2022-03-26 21:16] LABS: Anisocytosis 2+ (NORMAL); Hypochromasia 1+ (NORMAL); Platelet Estimate Adequate (Adequate)
[2022-03-26 21:18] LABS: NT Pro B Type Natriuretic Pept 3440 pg/mL (5-100)
--- NOTE | 2022-03-26 21:18 | ECG_ITS ---
Measurements Intervals [place] Rate: 77 P: -3 [place]: 153 QRS: 16 QRSD: 105 T: 16 QT: 355 QTc: 403 Interpretive Statements SINUS RHYTHM WITH OCCASIONAL SUPRAVENTRICULAR PREMATURE COMPLEXES LEFT ATRIAL ENLARGEMENT [-0.15mV P WAVE IN V1/V2] COMPARED TO ECG 03/05/2022 20:34:17 NO SIGNIFICANT CHANGES Electronically Signed On 03-27-2022 17:54:07 CDT by Ana Sorto M.D.
[2022-03-26 21:20] VITALS: PULSE 78; RESP 21
[2022-03-26 22:22] LABS: Appearance Urine Clear (Clear); Bilirubin Urine Negative (Negative); Color Urine Yellow (Yellow); Glucose Urine UA Negative (Negative); Ketones Urine Negative (Negative); Leukocyte Esterase Ur Trace LEU/UL (Negative); Nitrate Urine Negative (Negative); Protein Urine 1+ mg/dL (Negative); Specific Grav Ur 1.015 (1.001-1.035); Urobilinogen Urine 0.2 mg/dL (<2.0)
--- NOTE | 2022-03-26 22:25 | PM.IMHP ---
H&P: HPI History of Present Illness Date/Time: 03/26/22 22:25 Chief Complaint: shortness of breath Narrative: this is an 81-year-old female with past medical history significant for type 2 diabetes mellitus, dyslipidemia, hypertension: COPD, chronic back pain chronic kidney disease, rheumatoid arthritis. patient presents to the emergency room due to worsening bilateral lower extremity edema, patient had been placed on Medrol Ramu in the outpatient setting for COPD exacerbation, states that this could have contributed to her overall fluid retention, cough productive of yellowish sputum, denies any fevers, rigors, chills, no chest pain, no dizziness, no palpitations, no vertigo, no syncope, near syncope, no lightheadedness, has had wheezing, no PND, no orthopnea. patient had recent hospitalization and discharged to [facility] has been requiring 4 L by nasal cannula of supplemental oxygen. preliminary workup was significant for BNP 3444, sodium 129, creatinine 3.4, BUN 88. a chest x-ray showed worsening lung infiltrates. Patient is been admitted for further evaluation management and treatment. Review of Systems Review of Systems: Worsening bilateral lower extremity edema, shortness of breath. Constitutional: Constitutional: Denies chills, Denies fever(s), Denies night sweats and Denies weakness Eyes: Eyes: Denies change in vision ENT: Denies dysphagia, Denies vertigo, Denies dizziness, Denies nasal congestion, Denies nasal discharge, Denies nasal obstruction and Denies odynophagia Cardiovascular: Cardiovascular: Denies chest pain, Denies syncope, Denies irregular heart rhythm, Reports leg edema, Denies lightheadedness, Denies radiating jaw, neck or arm pain, Denies palpitations, Reports dyspnea and Reports dyspnea on exertion Respiratory: Respiratory: Denies change in phlegm color, Reports cough, Reports excessive phlegm production and Reports wheezing Gastrointestinal: Gastrointestinal: Denies abdominal pain, Denies dyspepsia, Denies heartburn, Denies diarrhea, Denies nausea and Denies vomiting Genitourinary: Genitourinary: Denies dysuria Musculoskeletal: Musculoskeletal: Denies arthralgias Integumentary/Breasts: Skin/Breast: Denies rash Neurologic: Denies focal weakness and Denies Sensory deficit (Neuro) Endocrine: Endocrine: Denies fatigue, Denies flushing, Denies heat intolerance, Denies polyphagia, Denies polydipsia and Denies palpitations Hematologic/Lymphatic: Hematologic/Lymphatic: Reports no additional hematologic/lymphatic complaints and Reports as per HPI Allergic/Immunologic: Allergic/Immunologic: Reports no additional allergic/immunologic complaints and Reports as per HPI [facility] Past Medical History Medical History Anemia Arthritis Asthma Back pain Benign essential hypertension Bladder cancer s/p chemoradiation therapy concluded in October 2021 Bronchitis Cataracts, bilateral Chronic back pain Chronic kidney disease, stage 3 With baseline creatinine between 1.2-1.4 Compression fracture of thoracic spine, non-traumatic COPD (chronic obstructive pulmonary disease) DM type 2 (diabetes mellitus, type 2) DVT (deep venous thrombosis) LLE Eczema Elevated homocysteine History of irritable bowel syndrome HTN (hypertension) Hx of colonic polyps Hyperlipidemia Hypothyroidism Left wrist fracture Lipoma Lumbar radiculopathy Melena 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 H/O dilation and curettage H/O thyroidectomy H/O total hysterectomy H
[2022-03-26 22:27] LABS: Bacteria Urine Trace /hpf; Mucus Urine Rare /lpf; Squamous Epithelial Cell Urine Rare /hpf (Few); WBC Urine 21-30 /hpf
[2022-03-26 22:30] VITALS: BP 131/111; PULSE 78; RESP 26; O2SAT 93
[2022-03-26 22:30] LABS: Add Urine Microscopic? YES; Blood Urine Trace-Intact (Negative)
[2022-03-26 22:36] LABS: SARS-CoV-2 RNA PCR Negative
[2022-03-26 23:34] VITALS: BP 154/57; PULSE 79; RESP 24; O2SAT 93
[2022-03-27] VITALS (25 sets, daily range): BP systolic 125–170; BP diastolic 40–55; PULSE 68–89; RESP 20–36; TEMP 36.1–36.8; O2SAT 91–94; BMI 40.5
--- NOTE | 2022-03-27 | ECHO_ITS ---
Patient Info Name: Cristina Bravo Age: 81 years : 1940 Gender: Female Ht: 64 in Wt: 236 lbs BSA: 2.25 m2 HR: 80 bpm BP: 154 / 60 mmHg Technical Quality: Good Exam Date: 03/27/2022 10:15 AM Exam Location: [facility] Pulmonary Exam Room: [facility] Patient Status: Inpatient Admit Date: 03/27/2022 Staff Ordering Physician: Avery Henry MD Chief Drafter: Aretha Guaman RDCS Attending Provider: Avery Henry MD Referring Physician: Carl ESTEVEZ; Exam Type: CA echo doppler color flow Study Info Indications - sob Complete two-dimensional, color flow and Doppler transthoracic echocardiogram is performed. Summary 1. Complete two-dimensional, color flow and Doppler transthoracic echocardiogram is performed. 2. Left ventricular chamber dimension is normal. 3. Left ventricular systolic function is normal, estimated at 60-65%. 4. There is mildly increased left ventricular wall thickness. 5. The left ventricular diastolic function is grade I diastolic dysfunction. 6. E/e' 15 is elevated. 7. Left atrial chamber dimension is mildly enlarged. 8. Right atrial chamber dimension is mildly enlarged. 9. There is moderate aortic valve sclerosis. 10. There is trace tricuspid valve regurgitation. 11. Mild pulmonary hypertension, estimated pulmonary arterial systolic pressure is 42 mmHg. 12. Pleural effusion. Left Ventricle E/e' 15 is elevated. Left ventricular chamber dimension is normal. Left ventricular systolic function is normal, estimated at 60-65%. There is mildly increased left ventricular wall thickness. The left ventricular diastolic function is grade I diastolic dysfunction. Right Ventricle Right ventricular systolic function is normal and with normal TAPSE 2.7 cm. Right ventricular chamber dimension is normal. Left Atria Left atrial chamber dimension is mildly enlarged. Right Atria Right atrial chamber dimension is mildly enlarged. Aortic Valve The aortic valve is trileaflet. There is moderate aortic valve sclerosis. There is no aortic valve stenosis. There is no aortic valve regurgitation. Pulmonic Valve There is no pulmonic regurgitation. Mitral Valve There is no mitral valve stenosis. There is no mitral valve regurgitation. Tricuspid Valve There is trace tricuspid valve regurgitation. Mild pulmonary hypertension, estimated pulmonary arterial systolic pressure is 42 mmHg. Pericardium/Pleural Pleural effusion. There is no pericardial effusion. Inferior Vena Cava Normal inferior vena cava with >50% collapse upon inspiration consistent with normal right atrial pressure, 5 mmHg. Aorta The aortic root size at the sinus of Valsalva is normal. Left Ventricular Outflow Tract Name Value Normal LVOT 2D LVOT Diameter 2.0 cm LVOT Doppler LVOT Peak Gradient 9 mmHg LVOT Mean Gradient 6 mmHg LVOT VTI 33 cm LVOT VTI/AV VTI Ratio 0.8 LVOT Stroke Volume 102 ml LVOT CO 21.1 l/min
--- NOTE | 2022-03-27 00:10 | ADMGEN ---
This patient, Cristina Bravo, was admitted to IMU Room 206-01 at 0005. Patient/family oriented to hospital policies and general routines including ID bracelet, bed and alarms, visiting hours, pain management, procedures, bathroom and other care routines, personal items, smoking policy, room service/diet, and visiting hours. Information on how to activate the Rapid Response Team has been discussed. Patient/Family are encouraged to report perceived risks to care and to ask questions if they do not understand what they are told or what they should do.
[2022-03-27] MEDS: traZODone HCL 50 MG TABLET 100 MG PO ×2 (04:36→20:14)
[2022-03-27] MEDS: LEVOTHYROXINE SODIUM 125 MCG TABLET PO (06:32)
[2022-03-27 06:37] LABS: Hematocrit 25.5 % (37.0-47.0); Hemoglobin 7.8 g/dL (12.0-15.0); Immature Granulocyte Absolute 0.15 K/mm3 (0.00-0.031); Immature Granulocyte Percent A 1.4 % (0-0.5); Lymphocytes Absolute Auto 0.17 K/mm3 (0.9-3.2); Lymphocytes Percent Auto 1.6 % (18.3-44.2); Mean Corpuscular HGB Conc 30.6 g/dl (32-36); Mean Corpuscular Hemoglobin 30.6 pg (26-34); Monocytes Absolute Auto 0.3 K/mm3 (0.1-0.6); Monocytes Percent Auto 2.9 % (2.6-8.5); Neutrophils Absolute Auto 10.2 K/mm3 (1.3-6.7); Neutrophils Percent Auto 94.1 % (45.5-73.1); Platelet Count Result 185 k/mm3 (150-375); Red Blood Count 2.55 M/mm3 (4.2-5.4); Red Cell Distribution Width 14.6 % (11.5-14.5); White Blood Count 10.9 K/mm3 (4.5-10.0)
[2022-03-27 06:39] LABS: Anion Gap 3 mmol/L (8-16); Blood Urea Nitrogen 91 mg/dL (7-17); Carbon Dioxide 30 mmol/L (22-30); Chloride 96 mmol/L (98-107); Estimated CRCL calculation 14 ml/min; Estimated Glomerular Filt Rate 13; Glucose 190 mg/dL (65-110); Potassium 5.4 mmol/L (3.4-5.0); Sodium 129 mmol/L (137-145)
[2022-03-27 07:52] LABS: Glucose Point of Care 211 mg/dl (65-105)
[2022-03-27] MEDS: ALBUTEROL SULFATE NEB 2.5 MG/3 ML INH 5 MG INHALATION ×3 (08:03→20:15)
[2022-03-27] MEDS: INSULIN ASPART (*BKC) 100 UNITS/ML SUB-Q ×3 (09:08→17:26)
[2022-03-27] MEDS: CHOLECALCIFEROL 1,000 UNITS TABLET 2000 UNITS PO (09:09)
[2022-03-27] MEDS: CYANOCOBALAMIN 1,000 MCG TABLET 1000 MCG PO (09:09)
[2022-03-27] MEDS: FUROSEMIDE INJ 40 MG/4 ML VIAL IV PUSH ×2 (09:10→20:14)
[2022-03-27] MEDS: CALCIUM CARBONATE (OSCAL) 500 MG TABLET PO (09:10)
[2022-03-27] MEDS: MULTIVITAMINS THERAPEUTIC TAB (*BKC) 1 TABLET PO (09:10)
[2022-03-27] MEDS: dilTIAZem HCL CD 180 MG CAP.ER.24H PO (09:10)
[2022-03-27] MEDS: LORATADINE 10 MG TABLET PO (09:10)
[2022-03-27] MEDS: FOLIC ACID 0.4 MG TABLET 0.8 MG PO ×2 (09:10→16:57)
[2022-03-27] MEDS: ROSUVASTATIN 10 MG TABLET 20 MG PO (09:10)
[2022-03-27] MEDS: PYRIDOSTIGMINE BROMIDE 60 MG TABLET PO (09:11)
[2022-03-27] MEDS: VITAMIN B COMPLEX/VIT C CAPSULE 1 EACH PO (09:11)
--- NOTE | 2022-03-27 09:48 | PM.CNCAR ---
Assessment and Plan Assessment and plan (1) Edema: Code(s): R60.9 - Edema, unspecified Status: Acute Assessment and Plan: Severe edema of the lower extremities and lower abdomen, weight gain of 11 kilos since last admission. Due to acute diastolic failure and worsening kidney disease as well as hypoproteinemia (low colloid osmotic pressure) Venous Doppler is pending (2) Acute diastolic heart failure: Code(s): I50.31 - Acute diastolic (congestive) heart failure Status: Acute Assessment and Plan: New onset of diastolic heart failure Due to underlying diastolic dysfunction plus volume overload related to her chronic kidney disease Blood pressure appears controlled. Agree with Lasix 40 mg IV push b.i.d. Daily BMP Consider albumin infusions if no response to Lasix. Consider adding Jardiance or Farxiga if renal function improves (3) Acute kidney injury superimposed on CKD: Code(s): N17.9 - Acute kidney failure, unspecified; N18.9 - Chronic kidney disease, unspecified Status: Acute Assessment and Plan: Dr. Green has been consulted (4) Bladder cancer: Code(s): C67.9 - Malignant neoplasm of bladder, unspecified Status: Acute Assessment and Plan: With metastasis to the lungs History of Present Illness History of Present Illness Consult date/time: 03/27/22 09:48 Reason For Visit: Pulmonary edema,chf,hyperkalemia Narrative: Cristina Bravo is an 81-year-old female whom I was asked to see at the request of Dr. Henry for my advice and opinion regarding her CHF, in consultation. She was discharged after an admission for [place] Syndrone 03/11/2022. Also has a h/o COPD, CKD, diabetes, rheumatoid arthritis, hypertension, [address] syndrome in 2017 as well as 2019 with metastatic bladder cancer status post chemotherapy. Since discharge to the longterm she has been on oxygen. She was started on Medrol Dosepak for COPD exacerbation and a cough productive of yellowish sputum. Had worsening lower extremity edema and abdominal edema recently and worsening shortness of breath. No chest pain or tightness. She was found to have congestive heart failure and worsening renal insufficiency. Her echo showed normal LV function but diastolic dysfunction, no significant valve disease. No history of any heart disease. Review of Systems Constitutional: Constitutional: Denies fever(s) ENT: Denies epistaxis and Denies nasal congestion Cardiovascular: Cardiovascular: Denies chest pain, Denies pedal edema, Denies lightheadedness and Denies dyspnea Respiratory: Respiratory: Denies chest congestion, Reports dyspnea and Reports dyspnea on exertion Gastrointestinal: Gastrointestinal: Denies abdominal pain, Denies hematochezia and Reports constipation (Getting better, bowel movements more regular) Genitourinary: Genitourinary: Denies no additional female genitourinary complaints (History of bladder cancer status post radiation therapy and chemo) Musculoskeletal: Musculoskeletal: Reports no additional musculoskeletal complaints, Reports arthralgias and Reports joint swelling Comments: Can not walk on swollen legs Integumentary/Breasts: Skin/Breast: Reports system reviewed and no additional complaints, except as docu Neurologic: Reports system reviewed and no additional complaints, except as documented, Denies behavioral changes and Denies confusion Psychiatric: Psychiatric: Denies behavioral changes and Denies confusion [facility] Past Medical History Medical History Anemia Arthritis Asthma Back pain Benign essential hypertension Bladder cancer s/p chemoradiation therapy concluded in October 2021 Bronchitis Cataracts, bilateral Chronic back pain Chronic kidney disease, stage 3 With baseline creatinine between 1.2-1.4
[2022-03-27] MEDS: LIDOCAINE 5% PATCH 1 PATCH TRANSDERM (11:39)
[2022-03-27 12:01] LABS: Glucose Point of Care 206 mg/dl (65-105)
--- NOTE | 2022-03-27 13:02 | PM.IMPN ---
Progress Note: A&P Assessment and Plan (1) Acute congestive heart failure: Code(s): I50.9 - Heart failure, unspecified Status: Acute Assessment and Plan: Continue diuresis ECHOCARDIOGRAM pending CARDIOLOGY CONSULT STRICT I/O's Quiroga (2) COPD (chronic obstructive pulmonary disease): Qualifiers: COPD type: unspecified COPD Qualified Code(s): J44.9 - Chronic obstructive pulmonary disease, unspecified Code(s): J44.9 - Chronic obstructive pulmonary disease, unspecified Status: Chronic Assessment and Plan: No wheezing this morning. Likely chronic and stable. (3) Acute respiratory failure with hypoxia: Code(s): J96.01 - Acute respiratory failure with hypoxia Status: Acute Assessment and Plan: on 4 L of oxygen by nasal cannula continue to monitor Secondary to CHF exacerbation and volume overload is likely. (4) DM type 2 (diabetes mellitus, type 2): Qualifiers: Diabetes mellitus rn long term care insulin use: without rn long term care use Diabetes mellitus complication status: with kidney complications Diabetes mellitus complication detail: with chronic kidney disease Chronic kidney disease stage: stage 3 (moderate) Qualified Code(s): E11.22 - Type 2 diabetes mellitus with diabetic chronic kidney disease; N18.3 - Chronic kidney disease, stage 3 (moderate) Code(s): E11.9 - Type 2 diabetes mellitus without complications Status: Chronic Assessment and Plan: holding pioglitazone and Januvia insulin sliding scale (5) Benign essential hypertension: Code(s): I10 - Essential (primary) hypertension Status: Chronic Assessment and Plan: continue home meds continue to monitor (6) Acute kidney injury superimposed on CKD: Code(s): N17.9 - Acute kidney failure, unspecified; N18.9 - Chronic kidney disease, unspecified Status: Acute Assessment and Plan: Upon chronic kidney disease with baseline creatinine around 2- 2.5. renal ultrasound in a.m. Quiroga catheter in nephrology consult (7) Rheumatoid arthritis: Code(s): M06.9 - Rheumatoid arthritis, unspecified Status: Acute Assessment and Plan: unchanged (8) Morbid obesity due to excess calories: Code(s): E66.01 - Morbid (severe) obesity due to excess calories Status: Chronic Assessment and Plan: lifestyle and diet modifications Subjective Date/time seen: 03/27/22 13:02 Respiratory status improved. Still short of breath. Still on oxygen. Exam Narrative: Patient is laying in a stretcher Const: General: cooperative, well developed, alert, awake, acute distress mild, ill appearing and tired appearing Nutritional Appearance: obese morbidly obese Orientation/consciousness: patient oriented x3 HENMT: Head: normal to inspection, normocephalic and atraumatic Ears: hearing grossly normal bilaterally Face and sinus: normal facial exam Eyes: General: appearance normal, both eyes and all related structures Sclera: sclerae normal Pupils: Equal, round and reactive pupils present EOM: EOMs intact bilaterally Neck: Neck: full ROM, no lymphadenopathy and no JVD Thyroid: thyroid normal Lymphatic: no lymphadenopathy noted Resp: Effort & Inspection: normal respiratory effort and able to speak in complete sentences Auscultation: crackles, wheezes and diminished lung sounds Cardio: Jugular venous distension: no JVD Rate: regular rate Rhythm: regular rhythm Heart sounds: S1 normal heart sound present and S2 normal heart sound present GI: Other: ventral hernia : General: Yes deferred Skin: Rashes: no rashes Wounds: no wounds Neuro: General: patient oriented x3, CN's II-XI intact bilaterally and Unable to assess gait Cranial nerves: Yes CN's II-XII intact bilaterally and Yes Equal, round and reactive pupils present Cognition (Neuro): normal cognition Speech: normal speech Gait exam (Neuro): Unable to as
--- NOTE | 2022-03-27 13:04 | PM.CNNEP ---
Assessment and Plan Assessment and plan (1) KALEB (acute kidney injury): Code(s): N17.9 - Acute kidney failure, unspecified Status: Acute Assessment and Plan: etiology not clear perhaps related to heart failure(?) check renal ultrasound check urine electrolytes, CPK, and urine eosinophils follow trend of repeat labs and UOP (2) Chronic kidney disease, stage IV (severe): Code(s): N18.4 - Chronic kidney disease, stage 4 (severe) Status: Chronic Assessment and Plan: baseline creatinine seems to run around 2.1 - 2.6mg/dl in the last year presumably due to HTN, DM, vascular disease and age-related change (3) Acute diastolic heart failure: Code(s): I50.31 - Acute diastolic (congestive) heart failure Status: Acute Assessment and Plan: Cardiology following severe lower extremity edema up to mid abdomen noted apparently has gained 11kg since last admission started on IV lasix consider IV albumin chased by IV lasix if no significant diuresis follow I/Os, daily weights, and respiratory status (4) Acute hypoxemic respiratory failure: Code(s): J96.01 - Acute respiratory failure with hypoxia Status: Acute Assessment and Plan: secondary to volume overload in the context of COPD continue current intervention (5) Benign essential hypertension: Code(s): I10 - Essential (primary) hypertension Status: Chronic Assessment and Plan: reasonable control at this time follow trend of hemodynamics (6) DM type 2 (diabetes mellitus, type 2): Qualifiers: Chronic kidney disease stage: stage 3 (moderate) Diabetes mellitus complication detail: with chronic kidney disease Diabetes mellitus complication status: with kidney complications Diabetes mellitus mcc insulin use: without mcc use Qualified Code(s): E11.22 - Type 2 diabetes mellitus with diabetic chronic kidney disease; N18.3 - Chronic kidney disease, stage 3 (moderate) Code(s): E11.9 - Type 2 diabetes mellitus without complications Status: Chronic Assessment and Plan: follow accuchecks glycemic control Will continue to follow. History of Present Illness Reason for Consult Consult date: 03/27/22 Reason for consult: acute renal failure (on chronic kidney disease) Chief Complaint Chief complaint: Pulmonary edema,chf,hyperkalemia History of Present Illness Narrative: The patient is a 81-year-old female with a past medical history as outlined below who presented to [facility] Emergency room with complaints of shortness of breath and increasing lower extremity edema. Initially, the patient's shortness of breath was thought to be secondary to his COPD exacerbation and she was prescribed a Medrol Dosepak in this setting. Initially, following the use of the steroids, she did notice some increase in her lower extremity edema and overall fluid retention. However she continued to have a cough productive of yellow sputum in spite of this intervention. She reported no overt fevers, chills, rigors, chest pain, dizziness, lightheadedness, palpitations, or syncope. She does report some wheezing but no significant issues or problems with paroxysmal nocturnal dyspnea or orthopnea. It should be noted the patient was just recently hospitalized with discharged to her nursing facility with the requirement of 4 L of oxygen by nasal cannula.With regard to her shortness of breath and lower extremity edema, as the symptoms continued to worsen/deteriorate, she presented to the emergency room for further evaluation. Workup and evaluation emergency room demonstrated the patient to be hemodynamically stable but with some mild respiratory distress. routine blood test demonstrated elevated BNP of 34 44 as well as acute kidney injury on top of her baseline kidney disease with a creatinine of 3.4 in association with a BUN of 88. Her chest x-ray showe
[2022-03-27 17:17] LABS: Glucose Point of Care 152 mg/dl (65-105)
[2022-03-27 21:14] LABS: Glucose Point of Care 134 mg/dl (65-105)
[2022-03-28] VITALS (28 sets, daily range): BP systolic 120–156; BP diastolic 37–91; PULSE 66–89; RESP 16–28; TEMP 35.8–36.7; O2SAT 85–98
[2022-03-28] MEDS: ALBUTEROL SULFATE NEB 2.5 MG/3 ML INH 5 MG INHALATION ×4 (02:39→21:31)
[2022-03-28 05:14] LABS: Anion Gap 4 mmol/L (8-16); Blood Urea Nitrogen 98 mg/dL (7-17); Calcium 7.9 mg/dL (8.4-10.2); Carbon Dioxide 26 mmol/L (22-30); Chloride 97 mmol/L (98-107); Estimated CRCL calculation 13 ml/min; Estimated Glomerular Filt Rate 12; Glucose 98 mg/dL (65-110); Potassium 5.4 mmol/L (3.4-5.0); Sodium 127 mmol/L (137-145)
[2022-03-28] MEDS: LEVOTHYROXINE SODIUM 125 MCG TABLET PO (05:38)
[2022-03-28 07:54] LABS: Glucose Point of Care 112 mg/dl (65-105)
[2022-03-28] MEDS: MULTIVITAMINS THERAPEUTIC TAB (*BKC) 1 TABLET PO (08:29)
[2022-03-28] MEDS: CHOLECALCIFEROL 1,000 UNITS TABLET 2000 UNITS PO (08:29)
[2022-03-28] MEDS: LORATADINE 10 MG TABLET PO (08:29)
[2022-03-28] MEDS: CYANOCOBALAMIN 1,000 MCG TABLET 1000 MCG PO (08:29)
[2022-03-28] MEDS: dilTIAZem HCL CD 180 MG CAP.ER.24H PO (08:29)
[2022-03-28] MEDS: VITAMIN B COMPLEX/VIT C CAPSULE 1 EACH PO (08:29)
[2022-03-28] MEDS: FOLIC ACID 0.4 MG TABLET 0.8 MG PO (08:29)
[2022-03-28] MEDS: FUROSEMIDE INJ 40 MG/4 ML VIAL IV PUSH (08:29)
[2022-03-28] MEDS: PYRIDOSTIGMINE BROMIDE 60 MG TABLET PO (08:29)
[2022-03-28] MEDS: ROSUVASTATIN 10 MG TABLET 20 MG PO (08:29)
[2022-03-28] MEDS: CALCIUM CARBONATE (OSCAL) 500 MG TABLET PO (08:29)
[2022-03-28] MEDS: LIDOCAINE 5% PATCH 1 PATCH TRANSDERM (08:30)
--- NOTE | 2022-03-28 10:55 | PM.PNCARD ---
Progress Note: A&P Assessment and Plan (1) Edema: Code(s): R60.9 - Edema, unspecified Status: Acute Plan This is an 81-year-old lady coming in with significant edema/volume overload. It seems clear to me that this is a problem with advancing renal failure. Her echocardiogram does not suggest a cardiac basis of this. She is being seen by Nephrology she needs to be diuresed. She may be needing renal replacement therapy in the near future if she does not respond to diuretics. At this point I do not think there are any other specific cardiac recommendations to make if you need me to see her again while she is in the hospital for some cardiac issue please let me know Francisco J Wen MD [facility] Subjective Date/time seen: Date of service:03/28/22 10:55 Interval history: Follow-up visit in this 81-year-old woman with: Edema/volume overload. Patient has normal left ventricular function by echo and no valvular disease. She also clearly has acute on chronic renal failure a baseline creatinine recent admission was about 2.0 now is 3.7. This is in the face of volume overload. She has quite a bit of edema. Patient is without other complaints upon coming into her room resting comfortably head of bed slightly elevated Exam Const: General: comfortable Other: Sleeping when I entered the room obviously no distress HENMT: Mouth: Yes moist mucous membranes Eyes: Sclera: sclerae normal Neck: Neck: supple Other: Carotid pulses are normal no apparent bruits Resp: Effort & Inspection: normal respiratory effort Other: Few scattered rhonchi noted no pulmonary rales Cardio: Rate: regular rate Rhythm: regular rhythm GI: GI Palp: Yes Soft to palpation Auscultation: normal bowel sounds Skin: General skin exam: normal color Extrem: Other: Marked bilateral lower extremity edema Objective Data Vital Signs Vital Signs: Vital Signs - 24 hr 03/27/22 11:50 03/27/22 12:09 03/27/22 12:00 Temperature 36.6 C Pulse Rate 78 68 Respiratory Rate 24 H Blood Pressure 125/40 L Pulse Oximetry 92 91 Oxygen Delivery Nasal Cannula Oxygen Flow Rate 2 03/27/22 14:00 03/27/22 14:15 03/27/22 14:25 Temperature Pulse Rate 69 84 84 Respiratory Rate 20 20 Blood Pressure Pulse Oximetry Oxygen Delivery Oxygen Flow Rate 03/27/22 16:00 03/27/22 16:00 03/27/22 17:15 Temperature 36.1 C L Pulse Rate 79 73 Respiratory Rate 20 Blood Pressure 133/46 L Pulse Oximetry 91 94 Oxygen Delivery Nasal Cannula Oxygen Flow Rate 2 03/27/22 18:00 03/27/22 20:00 03/27/22 20:17 Temperature 36.8 C Pulse Rate 70 75 76 Respiratory Rate 36 H 20 Blood Pressure 128/42 L Pulse Oximetry 91 Oxygen Delivery Oxygen Flow Rate 03/27/22 20:18 03/27/22 20:27 03/27/22 20:00 Temperature Pulse Rate 81 77 Respiratory Rate 20 Blood Pressure Pulse Oximetry 93 Oxygen Delivery Nasal Cannula Oxygen Flow Rate 2 03/27/22 22:00 03/28/22 00:00 03/28/22 00:00 Temperature 36.7 C Pulse Rate 76 89 72 Respiratory Rate 20 Blood Pressure 129/59 L Pulse Oximetry 92 Oxygen Delivery Oxygen Flow Rate 03/28/22 02:00 03/28/22 02:41 03/28/22 02:48 Temperature Pulse Rate 74 74 77 Respiratory Rate 16 16 Blood Pressure Pulse Oximetry Oxygen Delivery Oxygen Flow Rate 03/28/22 04:00 03/28/22 04:00 03/28/22 06:00 Temperature 36.6 C Pulse Rate 70 75 66 Respiratory Rate 20 Blood Pressure 120/37 L Pulse Oximetry 89 L Oxygen Delivery Oxygen Flow Rate 03/28/22 07:50 03/28/22 07:50 03/28/22 07:59 Temperature Pulse Rate 77 Respiratory Rate 26 H Blood Pressure Pulse Oximetry 96 96 Oxygen Delivery Nasal Cannula Oxygen Flow Rate 3 03/28/22 07:59 03/28/22 08:26 03/28/22 08:00 Temperature 36.6 C Pulse Rate 84 75 73 Respiratory Rate 22 H 22 H Blood Pressure 128/41 L Pulse Oximetry 96 Oxygen Del
[2022-03-28 11:50] LABS: Glucose Point of Care 115 mg/dl (65-105)
--- NOTE | 2022-03-28 12:16 | PM.IMPN ---
Progress Note: A&P Assessment and Plan (1) Acute congestive heart failure: Code(s): I50.9 - Heart failure, unspecified Status: Acute Assessment and Plan: Continue diuresis ECHOCARDIOGRAM pending CARDIOLOGY CONSULT STRICT I/O's [place] (2) COPD (chronic obstructive pulmonary disease): Qualifiers: COPD type: unspecified COPD Qualified Code(s): J44.9 - Chronic obstructive pulmonary disease, unspecified Code(s): J44.9 - Chronic obstructive pulmonary disease, unspecified Status: Chronic Assessment and Plan: No wheezing this morning. Likely chronic and stable. (3) Acute respiratory failure with hypoxia: Code(s): J96.01 - Acute respiratory failure with hypoxia Status: Acute Assessment and Plan: on 4 L of oxygen by nasal cannula Secondary to CHF exacerbation and complicated by worsening kidney function leading to volume overload. (4) DM type 2 (diabetes mellitus, type 2): Qualifiers: Diabetes mellitus terminal supervisor insulin use: without terminal supervisor use Diabetes mellitus complication status: with kidney complications Diabetes mellitus complication detail: with chronic kidney disease Chronic kidney disease stage: stage 3 (moderate) Qualified Code(s): E11.22 - Type 2 diabetes mellitus with diabetic chronic kidney disease; N18.3 - Chronic kidney disease, stage 3 (moderate) Code(s): E11.9 - Type 2 diabetes mellitus without complications Status: Chronic Assessment and Plan: holding pioglitazone and Januvia insulin sliding scale (5) Benign essential hypertension: Code(s): I10 - Essential (primary) hypertension Status: Chronic Assessment and Plan: continue home meds continue to monitor (6) Acute kidney injury superimposed on CKD: Code(s): N17.9 - Acute kidney failure, unspecified; N18.9 - Chronic kidney disease, unspecified Status: Acute Assessment and Plan: Upon chronic kidney disease with baseline creatinine around 2- 2.5. renal ultrasound in a.m. [place] catheter in nephrology consult May need dialysis if she continues to not diurese well. (7) Rheumatoid arthritis: Code(s): M06.9 - Rheumatoid arthritis, unspecified Status: Acute Assessment and Plan: unchanged (8) Morbid obesity due to excess calories: Code(s): E66.01 - Morbid (severe) obesity due to excess calories Status: Chronic Assessment and Plan: lifestyle and diet modifications Subjective Date/time seen: 07/01/22 12:16 Patient is still short of breath. About the same as yesterday.\ Not diuresing well despite diuretic Exam Narrative: Patient is laying in a stretcher Const: General: cooperative, well developed, alert, awake, acute distress mild, ill appearing and tired appearing Nutritional Appearance: obese morbidly obese Orientation/consciousness: patient oriented x3 HENMT: Head: normal to inspection, normocephalic and atraumatic Ears: hearing grossly normal bilaterally Face and sinus: normal facial exam Eyes: General: appearance normal, both eyes and all related structures Sclera: sclerae normal Pupils: Equal, round and reactive pupils present EOM: EOMs intact bilaterally Neck: Neck: full ROM, no lymphadenopathy and no JVD Thyroid: thyroid normal Lymphatic: no lymphadenopathy noted Resp: Effort & Inspection: normal respiratory effort and able to speak in complete sentences Auscultation: crackles, wheezes and diminished lung sounds Cardio: Jugular venous distension: no JVD Rate: regular rate Rhythm: regular rhythm Heart sounds: S1 normal heart sound present and S2 normal heart sound present GI: Other: ventral hernia : General: Yes deferred Skin: Rashes: no rashes Wounds: no wounds Neuro: General: patient oriented x3, CN's II-XI intact bilaterally and Unable to assess gait Cranial nerves: Yes CN's II-XII intact bilaterally and Yes Equal, round and reactive p
--- NOTE | 2022-03-28 13:01 | P.PNNP_ITS ---
Progress Note: A&P Assessment and Plan (1) KALEB (acute kidney injury): Code(s): N17.9 - Acute kidney failure, unspecified Status: Acute Assessment and Plan: * etiology not clear * perhaps related to heart failure(?) * evaluation to date: * renal ultrasound without any acute issues * UA with some white and red blood cells -- culture negative to date * urine electrolytes/eosinophils pending * follow-up on CPK * remains at high risk for needing FURNITURE REPAIRER/dialysis * follow trend of repeat labs and UOP (2) Chronic kidney disease, stage IV (severe): Code(s): N18.4 - Chronic kidney disease, stage 4 (severe) Status: Chronic Assessment and Plan: * baseline creatinine seems to run around 2.1 - 2.6mg/dl in the last year * presumably due to HTN, DM, vascular disease and age-related change (3) Acute diastolic heart failure: Code(s): I50.31 - Acute diastolic (congestive) heart failure Status: Acute Assessment and Plan: * Cardiology following * severe lower extremity edema up to mid abdomen noted * reportedly has gained 11kg since last admission * started on IV lasix but limited response * switch to IV bumex with metolazone * follow I/Os, daily weights, and respiratory status (4) Acute hypoxemic respiratory failure: Code(s): J96.01 - Acute respiratory failure with hypoxia Status: Acute Assessment and Plan: * secondary to volume overload in the context of COPD * continue current interventions (5) Benign essential hypertension: Code(s): I10 - Essential (primary) hypertension Status: Chronic Assessment and Plan: * reasonable control at this time * follow trend of hemodynamics (6) DM type 2 (diabetes mellitus, type 2): Qualifiers: Diabetes mellitus fdc insulin use: without fdc use Diabetes mellitus complication status: with kidney complications Diabetes mellitus complication detail: with chronic kidney disease Chronic kidney disease stage: stage 3 (moderate) Qualified Code(s): E11.22 - Type 2 diabetes mellitus with diabetic chronic kidney disease; N18.3 - Chronic kidney disease, stage 3 (m oderate) Code(s): E11.9 - Type 2 diabetes mellitus without complications Status: Chronic Assessment and Plan: * follow accuchecks * glycemic control Attempted to discuss FURNITURE REPAIRER/dialysis with the patient but she kept falling asleep in the middle of my conversation with her (possible uremia?); multiple messages left with family to discuss the possible need for FURNITURE REPAIRER/dialysis but only able to leave voicemail messages to call me back -- will continue to attempt to get ahold of family to discuss the situation; > 20 minutes spent facilitating care for patient and attempted contact with family. Will continue to follow. Subjective Date/time seen: 03/28/22 13:01 Her condition appears to have declined since I last saw her; she is not requiring BiPAP therapy to maintain her respiratory status and her renal function continues to deteriorate with suboptimal urine output despite diuretics therapy; sodium dropping and potassium rising as well; also seems more lethargic as well (falls asleep in the middle of conversation). Exam Narrative: General: elderly female sleeping with BiPAP in place Heart: normal S1 and S2; no rub Lungs: coarse breath sounds with scattered rhonchi Abdomen: soft, nontender, nondistended, positive bowel sounds Extremities: no cyanosi
--- NOTE | 2022-03-28 13:01 | PM.PNNEP ---
Progress Note: A&P Assessment and Plan (1) KALEB (acute kidney injury): Code(s): N17.9 - Acute kidney failure, unspecified Status: Acute Assessment and Plan: etiology not clear perhaps related to heart failure(?) evaluation to date: renal ultrasound without any acute issues UA with some white and red blood cells -- culture negative to date urine electrolytes/eosinophils pending follow-up on CPK remains at high risk for needing CUSTOMER ACQUISITION SPECIALIST/dialysis follow trend of repeat labs and UOP (2) Chronic kidney disease, stage IV (severe): Code(s): N18.4 - Chronic kidney disease, stage 4 (severe) Status: Chronic Assessment and Plan: baseline creatinine seems to run around 2.1 - 2.6mg/dl in the last year presumably due to HTN, DM, vascular disease and age-related change (3) Acute diastolic heart failure: Code(s): I50.31 - Acute diastolic (congestive) heart failure Status: Acute Assessment and Plan: Cardiology following severe lower extremity edema up to mid abdomen noted reportedly has gained 11kg since last admission started on IV lasix but limited response switch to IV bumex with metolazone follow I/Os, daily weights, and respiratory status (4) Acute hypoxemic respiratory failure: Code(s): J96.01 - Acute respiratory failure with hypoxia Status: Acute Assessment and Plan: secondary to volume overload in the context of COPD continue current interventions (5) Benign essential hypertension: Code(s): I10 - Essential (primary) hypertension Status: Chronic Assessment and Plan: reasonable control at this time follow trend of hemodynamics (6) DM type 2 (diabetes mellitus, type 2): Qualifiers: Diabetes mellitus manager intermediate insulin use: without usp use Diabetes mellitus complication status: with kidney complications Diabetes mellitus complication detail: with chronic kidney disease Chronic kidney disease stage: stage 3 (moderate) Qualified Code(s): E11.22 - Type 2 diabetes mellitus with diabetic chronic kidney disease; N18.3 - Chronic kidney disease, stage 3 (moderate) Code(s): E11.9 - Type 2 diabetes mellitus without complications Status: Chronic Assessment and Plan: follow accuchecks glycemic control Attempted to discuss CUSTOMER ACQUISITION SPECIALIST/dialysis with the patient but she kept falling asleep in the middle of my conversation with her (possible uremia?); multiple messages left with family to discuss the possible need for CUSTOMER ACQUISITION SPECIALIST/dialysis but only able to leave voicemail messages to call me back -- will continue to attempt to get ahold of family to discuss the situation; > 20 minutes spent facilitating care for patient and attempted contact with family. Will continue to follow. Subjective Date/time seen: 03/28/22 13:01 Her condition appears to have declined since I last saw her; she is not requiring BiPAP therapy to maintain her respiratory status and her renal function continues to deteriorate with suboptimal urine output despite diuretics therapy; sodium dropping and potassium rising as well; also seems more lethargic as well (falls asleep in the middle of conversation). Exam Narrative: General: elderly female sleeping with BiPAP in place Heart: normal S1 and S2; no rub Lungs: coarse breath sounds with scattered rhonchi Abdomen: soft, nontender, nondistended, positive bowel sounds Extremities: no cyanosis or clubbing; 2 - 3+ edema Skin: warm and dry Objective Data Vital Signs Vital Signs: Vital Signs Temp Pulse Resp BP Pulse Ox O2 Del Method O2 Flow Rate 03/28/22 12:14 36.2 C L 76 20 126/37 L 95 03/28/22 08:25 93 Nasal Cannula 3 03/28/22 10:00 77 03/28/22 08:00 73 03/28/22 08:26 36.6 C 75 22 H 128/41 L 96 03/28/22 07:59 84 22 H 03/28/22 07:59 96 03/28/22 07:50 77 26 H 03/28/22 07:50 96 Nasal Cannul
[2022-03-28 16:51] LABS: Glucose Point of Care 134 mg/dl (65-105)
[2022-03-28] MEDS: BUMETANIDE INJ 2.5 MG/10 ML VIAL 2 MG IV PUSH (18:19)
[2022-03-28 20:14] LABS: Glucose Point of Care 106 mg/dl (65-105)
[2022-03-28] MEDS: traZODone HCL 50 MG TABLET 100 MG PO (20:51)
[2022-03-29] VITALS (40 sets, daily range): BP systolic 100–177; BP diastolic 38–68; PULSE 66–84; RESP 12–28; TEMP 35.9–37.5; O2SAT 92–98
[2022-03-29] MEDS: ALBUTEROL SULFATE NEB 2.5 MG/3 ML INH 5 MG INHALATION ×4 (02:26→20:34)
[2022-03-29 05:06] LABS: Hematocrit 22.7 % (37.0-47.0); Hemoglobin 7.3 g/dL (12.0-15.0); Mean Corpuscular HGB Conc 32.2 g/dl (32-36); Mean Corpuscular Hemoglobin 30.8 pg (26-34); Mean Corpuscular Volume 95.8 fl (80-100); Mean Platelet Volume 9.6 fl (7.4-10.4); Platelet Count Result 174 k/mm3 (150-375); Red Blood Count 2.37 M/mm3 (4.2-5.4); Red Cell Distribution Width 14.6 % (11.5-14.5); White Blood Count 11.8 K/mm3 (4.5-10.0)
[2022-03-29 05:20] LABS: Anion Gap 4 mmol/L (8-16); Blood Urea Nitrogen 97 mg/dL (7-17); Calcium 7.8 mg/dL (8.4-10.2); Carbon Dioxide 28 mmol/L (22-30); Chloride 96 mmol/L (98-107); Estimated CRCL calculation 12 ml/min; Estimated Glomerular Filt Rate 10; Glucose 73 mg/dL (65-110); Potassium 5.2 mmol/L (3.4-5.0); Sodium 128 mmol/L (137-145)
[2022-03-29] MEDS: LEVOTHYROXINE SODIUM 125 MCG TABLET PO (05:56)
[2022-03-29] MEDS: LOPERAMIDE HCL 2 MG CAPSULE PO (05:59)
[2022-03-29 07:52] LABS: Glucose Point of Care 79 mg/dl (65-105)
[2022-03-29] MEDS: metOLazone 5 MG TABLET PO (09:08)
[2022-03-29] MEDS: PYRIDOSTIGMINE BROMIDE 60 MG TABLET PO (09:08)
[2022-03-29] MEDS: MULTIVITAMINS THERAPEUTIC TAB (*BKC) 1 TABLET PO (09:08)
[2022-03-29] MEDS: ROSUVASTATIN 10 MG TABLET 20 MG PO (09:08)
[2022-03-29] MEDS: LORATADINE 10 MG TABLET PO (09:08)
[2022-03-29] MEDS: CHOLECALCIFEROL 1,000 UNITS TABLET 2000 UNITS PO (09:09)
[2022-03-29] MEDS: CYANOCOBALAMIN 1,000 MCG TABLET 1000 MCG PO (09:09)
[2022-03-29] MEDS: FOLIC ACID 0.4 MG TABLET 0.8 MG PO ×2 (09:09→18:00)
[2022-03-29] MEDS: dilTIAZem HCL CD 180 MG CAP.ER.24H PO (09:09)
[2022-03-29] MEDS: BUMETANIDE INJ 1 MG/4 ML VIAL IV PUSH ×2 (09:09→18:00)
[2022-03-29] MEDS: CALCIUM CARBONATE (OSCAL) 500 MG TABLET PO (09:09)
[2022-03-29] MEDS: VITAMIN B COMPLEX/VIT C CAPSULE 1 EACH PO (09:10)
[2022-03-29] MEDS: LIDOCAINE 5% PATCH 1 PATCH TRANSDERM (10:56)
--- NOTE | 2022-03-29 11:19 | P.PNNP_ITS ---
Progress Note: A&P Assessment and Plan (1) KALEB (acute kidney injury): Code(s): N17.9 - Acute kidney failure, unspecified Status: Acute Assessment and Plan: * etiology not clear * perhaps related to heart failure(?) * evaluation to date: * renal ultrasound without any acute issues * UA with some white and red blood cells -- culture negative to date * urine electrolytes/eosinophils pending * follow-up on CPK * will expand work-up and check serologies * BUN and creatinine continue to climb along with ongoing electrolyte abnormalities as well as concerns for possible uremia -- I think we should proceed with dialysis before thing deteriorate further * discussed with patient and patient's by phone and both are agreeable * Surgery consulted for HD catheter placement * plan HD later today * follow trend of repeat labs and UOP for potential renal recovery (2) Chronic kidney disease, stage IV (severe): Code(s): N18.4 - Chronic kidney disease, stage 4 (severe) Status: Chronic Assessment and Plan: * baseline creatinine seems to run around 2.1 - 2.6mg/dl in the last year * presumably due to HTN, DM, vascular disease and age-related change (3) Acute diastolic heart failure: Code(s): I50.31 - Acute diastolic (congestive) heart failure Status: Acute Assessment and Plan: * Cardiology following * severe lower extremity edema up to mid abdomen noted * reportedly has gained 11kg since last admission * switched from IV lasix to IV bumex + metolazone * follow I/Os, daily weights, and respiratory status * fluid removal with dialysis should help as well (4) Acute hypoxemic respiratory failure: Code(s): J96.01 - Acute respiratory failure with hypoxia Status: Acute Assessment and Plan: * secondary to volume overload in the context of COPD * continue current interventions (5) Benign essential hypertension: Code(s): I10 - Essential (primary) hypertension Status: Chronic Assessment and Plan: * reasonable control at this time * follow trend of hemodynamics (6) DM type 2 (diabetes mellitus, type 2): Qualifiers: Diabetes mellitus salvage determiner insulin use: without group home use Diabetes mellitus complication status: with kidney complications Diabetes mellitus comp lication detail: with chronic kidney disease Chronic kidney disease stage: stage 3 (moderate) Qualified Code(s): E11.22 - Type 2 diabetes mellitus with diabetic chronic kidney disease; N18.3 - Chronic kidney disease, stage 3 (moderate) Code(s): E11.9 - Type 2 diabetes mellitus without complications Status: Chronic Assessment and Plan: * follow accuchecks * glycemic control Greater than 20 minute spent in discussion with patient and patient's (by phone) with regard to OIL AND GAS LEASE PUMPER/hemodialysis with regard to HD catheter placement, risks, benefits, pros, con...etc and both are in agreement to proceed with this intervention Will continue to follow. Subjective Date/time seen: 03/29/22 11:19 A bit more awake and alert in comparison to yesterday; able to discuss with patient (and her by phone) the issue of her worsening renal function in association with volume overload and my concern that she may need OIL AND GAS LEASE PUMPER/hemodialysis; remains at BiPAP at the time of my visit. Exam Narrative: General: elderly female resting with BiPAP in place Heart: normal S1 and
--- NOTE | 2022-03-29 11:19 | PM.PNNEP ---
Progress Note: A&P Assessment and Plan (1) KALEB (acute kidney injury): Code(s): N17.9 - Acute kidney failure, unspecified Status: Acute Assessment and Plan: etiology not clear perhaps related to heart failure(?) evaluation to date: renal ultrasound without any acute issues UA with some white and red blood cells -- culture negative to date urine electrolytes/eosinophils pending follow-up on CPK will expand work-up and check serologies BUN and creatinine continue to climb along with ongoing electrolyte abnormalities as well as concerns for possible uremia -- I think we should proceed with dialysis before thing deteriorate further discussed with patient and patient's by phone and both are agreeable Surgery consulted for HD catheter placement plan HD later today follow trend of repeat labs and UOP for potential renal recovery (2) Chronic kidney disease, stage IV (severe): Code(s): N18.4 - Chronic kidney disease, stage 4 (severe) Status: Chronic Assessment and Plan: baseline creatinine seems to run around 2.1 - 2.6mg/dl in the last year presumably due to HTN, DM, vascular disease and age-related change (3) Acute diastolic heart failure: Code(s): I50.31 - Acute diastolic (congestive) heart failure Status: Acute Assessment and Plan: Cardiology following severe lower extremity edema up to mid abdomen noted reportedly has gained 11kg since last admission switched from IV lasix to IV bumex + metolazone follow I/Os, daily weights, and respiratory status fluid removal with dialysis should help as well (4) Acute hypoxemic respiratory failure: Code(s): J96.01 - Acute respiratory failure with hypoxia Status: Acute Assessment and Plan: secondary to volume overload in the context of COPD continue current interventions (5) Benign essential hypertension: Code(s): I10 - Essential (primary) hypertension Status: Chronic Assessment and Plan: reasonable control at this time follow trend of hemodynamics (6) DM type 2 (diabetes mellitus, type 2): Qualifiers: Diabetes mellitus long lines operator insulin use: without senior living use Diabetes mellitus complication status: with kidney complications Diabetes mellitus complication detail: with chronic kidney disease Chronic kidney disease stage: stage 3 (moderate) Qualified Code(s): E11.22 - Type 2 diabetes mellitus with diabetic chronic kidney disease; N18.3 - Chronic kidney disease, stage 3 (moderate) Code(s): E11.9 - Type 2 diabetes mellitus without complications Status: Chronic Assessment and Plan: follow accuchecks glycemic control Greater than 20 minute spent in discussion with patient and patient's (by phone) with regard to BRICK TESTER/hemodialysis with regard to HD catheter placement, risks, benefits, pros, con...etc and both are in agreement to proceed with this intervention Will continue to follow. Subjective Date/time seen: 03/29/22 11:19 A bit more awake and alert in comparison to yesterday; able to discuss with patient (and her by phone) the issue of her worsening renal function in association with volume overload and my concern that she may need BRICK TESTER/hemodialysis; remains at [facility] at the time of my visit. Exam Narrative: General: elderly female resting with BiPAP in place Heart: normal S1 and S2; no rub Lungs: coarse breath sounds with scattered rhonchi Abdomen: soft, nontender, nondistended, positive bowel sounds Extremities: no cyanosis or clubbing; 2 - 3+ edema Skin: warm and intact Objective Data Vital Signs Vital Signs: Vital Signs Temp Pulse Resp BP Pulse Ox O2 Del Method O2 Flow Rate 03/29/22 10:00 75 03/29/22 09:29 82 20 03/29/22 09:25 96 Nasal Cannula 4 03/29/22 09:17 78 20 03/29/22 08:00 82 03/29/22 08:00 97 BiPAP 03/29/22
[2022-03-29 11:26] LABS: Creatinine Urine 42.8 mg/dL; Total Protein Urine Random 20 mg/dL; Ur Ttl Prot Creatinine Ratio 0.47 mg/mg (0-0.20)
[2022-03-29 11:28] LABS: Sodium Urine Random 49 meq/L
[2022-03-29 11:33] LABS: Eosinophil Urine None Seen % (None Seen)
[2022-03-29 12:09] LABS: Glucose Point of Care 81 mg/dl (65-105)
--- NOTE | 2022-03-29 12:45 | PM.IMPN ---
Progress Note: A&P Assessment and Plan (1) Acute congestive heart failure: Code(s): I50.9 - Heart failure, unspecified Status: Acute Assessment and Plan: Continue diuresis Echo noted. does have some diastolic dysfunction. Left ventricular ejection fraction looks to be preserved. Appreciate Cardiology input and Most of this is likely related to volume overload secondary to renal disease. spoke with Nephrology and plan new hemodialysis. Patient is agreeable. (2) COPD (chronic obstructive pulmonary disease): Qualifiers: COPD type: unspecified COPD Qualified Code(s): J44.9 - Chronic obstructive pulmonary disease, unspecified Code(s): J44.9 - Chronic obstructive pulmonary disease, unspecified Status: Chronic Assessment and Plan: No wheezing this morning. Likely chronic and stable. (3) Acute respiratory failure with hypoxia: Code(s): J96.01 - Acute respiratory failure with hypoxia Status: Acute Assessment and Plan: on 4 L of oxygen by nasal cannula Secondary to CHF exacerbation and complicated by worsening kidney function leading to volume overload. (4) DM type 2 (diabetes mellitus, type 2): Qualifiers: Diabetes mellitus snf insulin use: without emt intermediate use Diabetes mellitus complication status: with kidney complications Diabetes mellitus complication detail: with chronic kidney disease Chronic kidney disease stage: stage 3 (moderate) Qualified Code(s): E11.22 - Type 2 diabetes mellitus with diabetic chronic kidney disease; N18.3 - Chronic kidney disease, stage 3 (moderate) Code(s): E11.9 - Type 2 diabetes mellitus without complications Status: Chronic Assessment and Plan: holding pioglitazone and Januvia insulin sliding scale (5) Benign essential hypertension: Code(s): I10 - Essential (primary) hypertension Status: Chronic Assessment and Plan: continue home meds continue to monitor (6) Acute kidney injury superimposed on CKD: Code(s): N17.9 - Acute kidney failure, unspecified; N18.9 - Chronic kidney disease, unspecified Status: Acute Assessment and Plan: Upon chronic kidney disease with baseline creatinine around 2- 2.5. Quiroga catheter in nephrology consult May need dialysis if she continues to not diurese well. (7) Rheumatoid arthritis: Code(s): M06.9 - Rheumatoid arthritis, unspecified Status: Acute Assessment and Plan: unchanged (8) Morbid obesity due to excess calories: Code(s): E66.01 - Morbid (severe) obesity due to excess calories Status: Chronic Assessment and Plan: lifestyle and diet modifications Subjective Date/time seen: 03/29/22 12:45 Patient is on BiPAP at appears to be breathing much better. Jimy discussion with the patient about hemodialysis and she is agreeable currently. Exam Narrative: Patient is laying in a stretcher Const: General: cooperative, well developed, alert, awake, acute distress mild, ill appearing and tired appearing Nutritional Appearance: obese morbidly obese Orientation/consciousness: patient oriented x3 HENMT: Head: normal to inspection, normocephalic and atraumatic Ears: hearing grossly normal bilaterally Face and sinus: normal facial exam Eyes: General: appearance normal, both eyes and all related structures Sclera: sclerae normal Pupils: Equal, round and reactive pupils present EOM: EOMs intact bilaterally Neck: Neck: full ROM, no lymphadenopathy and no JVD Thyroid: thyroid normal Lymphatic: no lymphadenopathy noted Resp: Effort & Inspection: normal respiratory effort and able to speak in complete sentences Auscultation: crackles, wheezes and diminished lung sounds Cardio: Jugular venous distension: no JVD Rate: regular rate Rhythm: regular rhythm Heart sounds: S1 normal heart sound present and S2 normal heart sound present GI: Other: ventral hernia : General:
--- NOTE | 2022-03-29 13:35 | W.PM.PROC2 ---
Procedure Note - Detailed Date of Procedure 03/29/22 Pre-op Diagnosis End-stage renal disease, inadequate venous access Post-op Diagnosis Same Procedure Performed Placement right femoral central venous catheter for acute dialysis Surgeon Justin Lucas MD Anesthesia Local (1% lidocaine) Indications Patient experiencing pulmonary edema and anasarca due to renal failure and uremia. I was asked to urgently place a central venous catheter for dialysis to be done today. Findings Both ports aspirated blood and flushed easily. Description of Procedure The right groin area was washed and then prepped and draped with chlorhexidine. Local anesthetic was infiltrated over the right femoral vein. A single puncture was used to cannulate the right femoral vein. A guidewire passed readily into the iliac and vena cava. The tract was dilated and then a dual lumen 20 cm dialysis catheter was passed over the guidewire and into the vena cava. This catheter had a side port for IV use as well. Once in position, both of the dialysis ports flushed easily with saline and aspirated blood readily. The side port was flushed as well. The line was sutured to the skin with 3-0 nylon. Glue was placed over the entrance site. A sandwich type dressing was placed over the catheter. Patient tolerated the procedure well. Implants Dual lumen central venous catheter with side port Estimated Blood Loss -10 Drains No Packing No Pathology None sent Complications No immediate complications Condition Stable Disposition No change [facility] Billing Surgery - Charge Forward: Surgery Billing (Placement central venous catheter for acute dialysis, non tunneled)
--- NOTE | 2022-03-29 13:50 | WPDPROCEDUR ---
Procedures Other Procedures Procedure 1: Other Procedure: 03/29/22 13:50 HEMODIALYSIS PROCEDURE NOTE: Patient seen/evaluated on dialysis at 13:35PM Vital Signs Temp Pulse Resp BP Pulse Ox O2 Del Method O2 Flow Rate 03/29/22 13:27 71 140/68 03/29/22 13:15 36.2 C L 80 22 H 130/57 L 03/29/22 13:29 19 96 BiPAP Patient tolerating treatment well.
[2022-03-29 15:49] LABS: Hepatitis B Surface Antigen Negative (Negative)
[2022-03-29 16:07] LABS: Hepatitis B Surface Anti Res Negative
[2022-03-29 17:12] LABS: Glucose Point of Care 72 mg/dl (65-105)
[2022-03-29 20:52] LABS: Glucose Point of Care 113 mg/dl (65-105)
[2022-03-29] MEDS: traZODone HCL 50 MG TABLET 100 MG PO (21:01)
[2022-03-30] VITALS (37 sets, daily range): BP systolic 91–134; BP diastolic 36–57; PULSE 72–103; RESP 12–28; TEMP 35.2–37.3; O2SAT 92–98
[2022-03-30] MEDS: ALBUTEROL SULFATE NEB 2.5 MG/3 ML INH 5 MG INHALATION ×4 (02:10→20:34)
[2022-03-30 05:03] LABS: Hematocrit 22.9 % (37.0-47.0); Hemoglobin 7.2 g/dL (12.0-15.0); Mean Corpuscular HGB Conc 31.4 g/dl (32-36); Mean Corpuscular Hemoglobin 30.3 pg (26-34); Mean Corpuscular Volume 96.2 fl (80-100); Mean Platelet Volume 9.7 fl (7.4-10.4); Platelet Count Result 155 k/mm3 (150-375); Red Blood Count 2.38 M/mm3 (4.2-5.4); Red Cell Distribution Width 14.8 % (11.5-14.5); White Blood Count 14.8 K/mm3 (4.5-10.0)
[2022-03-30 05:17] LABS: Anion Gap 2 mmol/L (8-16); Blood Urea Nitrogen 66 mg/dL (7-17); Calcium 7.4 mg/dL (8.4-10.2); Carbon Dioxide 29 mmol/L (22-30); Chloride 98 mmol/L (98-107); Creatine Kinase < 20 U/L (30-135); Estimated CRCL calculation 15 ml/min; Estimated Glomerular Filt Rate 13; Glucose 82 mg/dL (65-110); Potassium 4.2 mmol/L (3.4-5.0); Sodium 129 mmol/L (137-145)
[2022-03-30 05:22] LABS: Complement C3 98 mg/dL (88-165)
[2022-03-30] MEDS: LOPERAMIDE HCL 2 MG CAPSULE PO (06:19)
[2022-03-30] MEDS: LEVOTHYROXINE SODIUM 125 MCG TABLET PO (06:19)
[2022-03-30 07:49] LABS: Glucose Point of Care 115 mg/dl (65-105)
[2022-03-30] MEDS: PYRIDOSTIGMINE BROMIDE 60 MG TABLET PO (09:04)
[2022-03-30] MEDS: VITAMIN B COMPLEX/VIT C CAPSULE 1 EACH PO (09:04)
[2022-03-30] MEDS: ROSUVASTATIN 10 MG TABLET 20 MG PO (09:04)
[2022-03-30] MEDS: MULTIVITAMINS THERAPEUTIC TAB (*BKC) 1 TABLET PO (09:04)
[2022-03-30] MEDS: LORATADINE 10 MG TABLET PO (09:05)
[2022-03-30] MEDS: LIDOCAINE 5% PATCH 1 PATCH TRANSDERM (09:05)
[2022-03-30] MEDS: CALCIUM CARBONATE (OSCAL) 500 MG TABLET PO (09:05)
[2022-03-30] MEDS: FOLIC ACID 0.4 MG TABLET 0.8 MG PO ×2 (09:05→16:37)
[2022-03-30] MEDS: CHOLECALCIFEROL 1,000 UNITS TABLET 2000 UNITS PO (09:05)
[2022-03-30] MEDS: CYANOCOBALAMIN 1,000 MCG TABLET 1000 MCG PO (09:05)
--- NOTE | 2022-03-30 11:18 | PM.IMPN ---
Progress Note: A&P Assessment and Plan (1) Acute congestive heart failure: Code(s): I50.9 - Heart failure, unspecified Status: Acute Assessment and Plan: Continue diuresis Echo noted. does have some diastolic dysfunction. Left ventricular ejection fraction looks to be preserved. Appreciate Cardiology input and Most of this is likely related to volume overload secondary to renal disease. spoke with Nephrology and plan new hemodialysis. Patient is agreeable. (2) COPD (chronic obstructive pulmonary disease): Qualifiers: COPD type: unspecified COPD Qualified Code(s): J44.9 - Chronic obstructive pulmonary disease, unspecified Code(s): J44.9 - Chronic obstructive pulmonary disease, unspecified Status: Chronic Assessment and Plan: No wheezing this morning. Likely chronic and stable. (3) Acute respiratory failure with hypoxia: Code(s): J96.01 - Acute respiratory failure with hypoxia Status: Acute Assessment and Plan: on 4 L of oxygen by nasal cannula Secondary to CHF exacerbation caused by worsening kidney function leading to volume overload. 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 Diabetes mellitus complication status: with kidney complications Diabetes mellitus complication detail: with chronic kidney disease Chronic kidney disease stage: stage 3 (moderate) Qualified Code(s): E11.22 - Type 2 diabetes mellitus with diabetic chronic kidney disease; N18.3 - Chronic kidney disease, stage 3 (moderate) Code(s): E11.9 - Type 2 diabetes mellitus without complications Status: Chronic Assessment and Plan: holding pioglitazone and Januvia insulin sliding scale (5) Benign essential hypertension: Code(s): I10 - Essential (primary) hypertension Status: Chronic Assessment and Plan: continue home meds continue to monitor (6) Acute kidney injury superimposed on CKD: Code(s): N17.9 - Acute kidney failure, unspecified; N18.9 - Chronic kidney disease, unspecified Status: Acute Assessment and Plan: Hemodialysis. (7) Rheumatoid arthritis: Code(s): M06.9 - Rheumatoid arthritis, unspecified Status: Acute Assessment and Plan: unchanged (8) Morbid obesity due to excess calories: Code(s): E66.01 - Morbid (severe) obesity due to excess calories Status: Chronic Assessment and Plan: lifestyle and diet modifications Subjective Date/time seen: 03/30/22 11:18 No new complaints. Shortness of breath is improved. Edema is improving. Patient receiving 2nd hemodialysis treatment today. Exam Narrative: Patient is laying in a stretcher Const: General: cooperative, well developed, alert, awake, acute distress mild, ill appearing and tired appearing Nutritional Appearance: obese morbidly obese Orientation/consciousness: patient oriented x3 HENMT: Head: normal to inspection, normocephalic and atraumatic Ears: hearing grossly normal bilaterally Face and sinus: normal facial exam Eyes: General: appearance normal, both eyes and all related structures Sclera: sclerae normal Pupils: Equal, round and reactive pupils present EOM: EOMs intact bilaterally Neck: Neck: full ROM, no lymphadenopathy and no JVD Thyroid: thyroid normal Lymphatic: no lymphadenopathy noted Resp: Effort & Inspection: normal respiratory effort and able to speak in complete sentences Auscultation: crackles, wheezes and diminished lung sounds Cardio: Jugular venous distension: no JVD Rate: regular rate Rhythm: regular rhythm Heart sounds: S1 normal heart sound present and S2 normal heart sound present GI: Other: ventral hernia : General: Yes deferred Skin: Rashes: no rashes Wounds: no wounds Neuro: General: patient oriented x3, CN's II-XI intact bilaterally and Unable to assess gait Cranial nerves: Yes CN'
--- NOTE | 2022-03-30 11:23 | P.PNNP_ITS ---
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 due to worsening volume overload unresponsive to diuretics, rising K+, declining sodium, and possible uremia * HD yesterday * HD today * follow trend of repeat labs and UOP for potential renal recovery (2) Chronic kidney disease, stage IV (severe): Code(s): N18.4 - Chronic kidney disease, stage 4 (severe) Status: Chronic Assessment and Plan: * baseline creatinine seems to run around 2.1 - 2.6mg/dl in the last year * presumably due to HTN, DM, vascular disease and age-related change (3) Acute diastolic heart failure: Code(s): I50.31 - Acute diastolic (congestive) heart failure Status: Acute Assessment and Plan: * Cardiology following * severe lower extremity edema up to mid abdomen noted * reportedly has gained 11kg since last admission * unresponsive to diuretics (IV lasix as well as IV bumex + metolazone) * follow I/Os, daily weights, and respiratory status * fluid removal with dialysis to compensate (4) Acute hypoxemic respiratory failure: Code(s): J96.01 - Acute respiratory failure with hypoxia Status: Acute Assessment and Plan: * secondary to volume overload in the context of COPD * continue current interventions (5) Benign essential hypertension: Code(s): I10 - Essential (primary) hypertension Status: Chronic Assessment and Plan: * reasonable control at this time * follow trend of hemodynamics (6) DM type 2 (diabetes mellitus, type 2): Qualifiers: Chronic kidney disease stage: stage 3 (moderate) Diabetes mellitus complication detail: with chronic kidney disease Diabetes mellitus complication status: with kidney complications Diabetes mellitus senior care insulin use: without senior care use Qualified Code(s): E11.22 - Type 2 diabetes mellitus with diabetic chronic kidney disease; N18.3 - Chronic kidney disease, stage 3 (moderate) Code(s): E11.9 - Type 2 diabetes mellitus without complications Status: Chronic Assessment and Plan: * follow accuchecks * glycemic control Will continue to follow. Subjective Date/time seen: 03/30/22 11:23 Tolerated second dialysis treatment at the time of my visit (seen on HD at 11:00am); s/p temporary femoral HD catheter placement and hemodialysis treatment yesterday -- tolerated both procedure reasoanbly well; overall, states her breathing as well as her swelling/edema are doing significantly better; no other issues/events overnight or earlier this AM. Exam Narrative: General: elderly female in NAD; off BiPAP at this time Heart: normal S1 and S2; no rub Lungs: coarse breath sounds with scattered rhonchi Abdomen: soft, nontender, nondistended, positive bowel sounds Extremities: no cyanosis or clubbing; 2+ edema Skin: no rash Objective Data Vital Signs Vital Signs:
--- NOTE | 2022-03-30 11:23 | PM.PNNEP ---
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 due to worsening volume overload unresponsive to diuretics, rising K+, declining sodium, and possible uremia HD yesterday HD today follow trend of repeat labs and UOP for potential renal recovery (2) Chronic kidney disease, stage IV (severe): Code(s): N18.4 - Chronic kidney disease, stage 4 (severe) Status: Chronic Assessment and Plan: baseline creatinine seems to run around 2.1 - 2.6mg/dl in the last year presumably due to HTN, DM, vascular disease and age-related change (3) Acute diastolic heart failure: Code(s): I50.31 - Acute diastolic (congestive) heart failure Status: Acute Assessment and Plan: Cardiology following severe lower extremity edema up to mid abdomen noted reportedly has gained 11kg since last admission unresponsive to diuretics (IV lasix as well as IV bumex + metolazone) follow I/Os, daily weights, and respiratory status fluid removal with dialysis to compensate (4) Acute hypoxemic respiratory failure: Code(s): J96.01 - Acute respiratory failure with hypoxia Status: Acute Assessment and Plan: secondary to volume overload in the context of COPD continue current interventions (5) Benign essential hypertension: Code(s): I10 - Essential (primary) hypertension Status: Chronic Assessment and Plan: reasonable control at this time follow trend of hemodynamics (6) DM type 2 (diabetes mellitus, type 2): Qualifiers: Chronic kidney disease stage: stage 3 (moderate) Diabetes mellitus complication detail: with chronic kidney disease Diabetes mellitus complication status: with kidney complications Diabetes mellitus [facility] insulin use: without [facility] use Qualified Code(s): E11.22 - Type 2 diabetes mellitus with diabetic chronic kidney disease; N18.3 - Chronic kidney disease, stage 3 (moderate) Code(s): E11.9 - Type 2 diabetes mellitus without complications Status: Chronic Assessment and Plan: follow accuchecks glycemic control Will continue to follow. Subjective Date/time seen: 03/30/22 11:23 Tolerated second dialysis treatment at the time of my visit (seen on HD at 11:00am); s/p temporary femoral HD catheter placement and hemodialysis treatment yesterday -- tolerated both procedure reasoanbly well; overall, states her breathing as well as her swelling/edema are doing significantly better; no other issues/events overnight or earlier this AM. Exam Narrative: General: elderly female in NAD; off BiPAP at this time Heart: normal S1 and S2; no rub Lungs: coarse breath sounds with scattered rhonchi Abdomen: soft, nontender, nondistended, positive bowel sounds Extremities: no cyanosis or clubbing; 2+ edema Skin: no rash Objective Data Vital Signs Vital Signs: Vital Signs Temp Pulse Resp BP Pulse Ox O2 Del Method O2 Flow Rate 03/30/22 11:20 88 91/46 L 03/30/22 11:00 79 112/48 L 03/30/22 10:40 82 106/45 L 03/30/22 10:20 101 H 112/45 L 03/30/22 10:00 87 116/48 L 03/30/22 09:30 4 03/30/22 09:30 37.3 C 103 H 24 H 95/55 L 03/30/22 09:40 85 111/46 L 03/30/22 09:21 94 Nasal Cannula 4 03/30/22 08:16 36.7 C 85 22 H 120/37 L 94 03/30/22 08:05 88 24 H 03/30/22 08:05 92 03/30/22 07:55 84 24 H 03/30/22 07:55 92 Nasal Cannula 4 03/30/22 06:00
[2022-03-30] MEDS: SODIUM CHLORIDE 0.9% IV 1,000 ML 999 ML IV CONT (12:31)
[2022-03-30 13:07] LABS: Glucose Point of Care 115 mg/dl (65-105)
[2022-03-30] MEDS: BUMETANIDE INJ 1 MG/4 ML VIAL IV PUSH ×2 (13:35→16:37)
[2022-03-30] MEDS: dilTIAZem HCL CD 180 MG CAP.ER.24H PO (13:35)
[2022-03-30 16:16] LABS: Glucose Point of Care 156 mg/dl (65-105)
[2022-03-30] MEDS: traZODone HCL 50 MG TABLET 100 MG PO (20:44)
[2022-03-30 20:59] LABS: Glucose Point of Care 176 mg/dl (65-105)
[2022-03-31] VITALS (23 sets, daily range): BP systolic 112–140; BP diastolic 39–51; PULSE 72–92; RESP 18–38; TEMP 36.4–36.8; O2SAT 89–99
[2022-03-31] MEDS: ALBUTEROL SULFATE NEB 2.5 MG/3 ML INH 5 MG INHALATION ×4 (02:41→21:02)
[2022-03-31] MEDS: LEVOTHYROXINE SODIUM 125 MCG TABLET PO (05:40)
[2022-03-31] MEDS: BUMETANIDE INJ 1 MG/4 ML VIAL IV PUSH ×2 (08:18→17:11)
[2022-03-31 08:19] LABS: Glucose Point of Care 105 mg/dl (65-105)
[2022-03-31] MEDS: CHOLECALCIFEROL 1,000 UNITS TABLET 2000 UNITS PO (09:02)
[2022-03-31] MEDS: PYRIDOSTIGMINE BROMIDE 60 MG TABLET PO (09:04)
[2022-03-31] MEDS: ROSUVASTATIN 10 MG TABLET 20 MG PO (09:04)
[2022-03-31] MEDS: LORATADINE 10 MG TABLET PO (09:04)
[2022-03-31] MEDS: MULTIVITAMINS THERAPEUTIC TAB (*BKC) 1 TABLET PO (09:05)
[2022-03-31] MEDS: dilTIAZem HCL CD 180 MG CAP.ER.24H PO (09:05)
[2022-03-31] MEDS: FOLIC ACID 0.4 MG TABLET 0.8 MG PO (09:05)
[2022-03-31] MEDS: CYANOCOBALAMIN 1,000 MCG TABLET 1000 MCG PO (09:05)
[2022-03-31] MEDS: VITAMIN B COMPLEX/VIT C CAPSULE 1 EACH PO (09:05)
[2022-03-31] MEDS: CALCIUM CARBONATE (OSCAL) 500 MG TABLET PO (09:05)
[2022-03-31] MEDS: LIDOCAINE 5% PATCH 1 PATCH TRANSDERM (09:06)
[2022-03-31 10:07] LABS: Anion Gap 1 mmol/L (8-16); Blood Urea Nitrogen 42 mg/dL (7-17); Calcium 7.1 mg/dL (8.4-10.2); Carbon Dioxide 30 mmol/L (22-30); Chloride 98 mmol/L (98-107); Estimated CRCL calculation 16 ml/min; Estimated Glomerular Filt Rate 14; Glucose 114 mg/dL (65-110); Potassium 4.1 mmol/L (3.4-5.0); Sodium 129 mmol/L (137-145)
--- NOTE | 2022-03-31 11:31 | P.PNNP_ITS ---
Progress Note: A&P Assessment and Plan (1) KALEB (acute kidney injury): Code(s): N17.9 - Acute kidney failure, unspecified Status: Acute Assessment and Plan: * Acute kidney injury. * evaluation to date: * renal ultrasound without any acute issues * UA with some white and red blood cells -- culture negative to date * urine electrolytes non-prenal (but done when on diuretics) * urine eosinophils negative * CPK normal * serologies pending * Etiology of the decline in kidney function is unclear. Possibly progression of renal disease, unmasked by treatment of volume overload. * Initiated on hemodialysis on Thursday. * Will skip today because she looks pretty good volume gupta. * Her potassium is fine. BUN and creatinine have come down. * Sodium level is a little bit low. It is stable * Urine output is very low unfortunately. * Will continue to observe for potential renal recovery (2) Chronic kidney disease, stage IV (severe): Code(s): N18.4 - Chronic kidney disease, stage 4 (severe) Status: Chronic Assessment and Plan: * baseline creatinine seems to run around 2.1 - 2.6mg/dl in the last year * presumably due to HTN, DM, vascular disease and age-related change (3) Acute diastolic heart failure: Code(s): I50.31 - Acute diastolic (congestive) heart failure Status: Acute Assessment and Plan: * Cardiology following * severe lower extremity edema up to mid abdomen noted * reportedly has gained 11kg since last admission * Removing fluid with dialysis. (4) Acute hypoxemic respiratory failure: Code(s): J96.01 - Acute respiratory failure with hypoxia Status: Acute Assessment and Plan: * secondary to volume overload in the context of COPD * continue current interventions * Remove fluid with dialysis (5) Benign essential hypertension: Code(s): I10 - Essential (primary) hypertension Status: Chronic Assessment and Plan: * Systolic 99-133. 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 Subjective Date/time seen: 03/31/22 11:31 Interval history: The patient feels much better. She is less short of breath and less swollen. She had dialysis day and yesterday. Exam Narrative: General: elderly female in NAD; off BiPAP at this time Heart: normal S1 and S2; no rub Lungs: coarse breath sounds with scattered rhonchi Abdomen: soft, nontender, nondistended, positive bowel sounds Extremities: no cyanosis or clubbing; 1-2+ edema Skin: no rash or subQ nodules Objective Data Vital Signs Vital Signs: Vital Signs - 24 hr 03/30/22 11:40 03/30/22 12:00 03/30/22 12:20 Temperature Pulse Rate 77 78 81 Respiratory Rate
--- NOTE | 2022-03-31 11:31 | PM.PNNEP ---
Progress Note: A&P Assessment and Plan (1) KALEB (acute kidney injury): Code(s): N17.9 - Acute kidney failure, unspecified Status: Acute Assessment and Plan: Acute kidney injury. evaluation to date: renal ultrasound without any acute issues UA with some white and red blood cells -- culture negative to date urine electrolytes non-prenal (but done when on diuretics) urine eosinophils negative CPK normal serologies pending Etiology of the decline in kidney function is unclear. Possibly progression of renal disease, unmasked by treatment of volume overload. Initiated on hemodialysis on Thursday. Will skip today because she looks pretty good volume gupta. Her potassium is fine. BUN and creatinine have come down. Sodium level is a little bit low. It is stable Urine output is very low unfortunately. Will continue to observe for potential renal recovery (2) Chronic kidney disease, stage IV (severe): Code(s): N18.4 - Chronic kidney disease, stage 4 (severe) Status: Chronic Assessment and Plan: baseline creatinine seems to run around 2.1 - 2.6mg/dl in the last year presumably due to HTN, DM, vascular disease and age-related change (3) Acute diastolic heart failure: Code(s): I50.31 - Acute diastolic (congestive) heart failure Status: Acute Assessment and Plan: Cardiology following severe lower extremity edema up to mid abdomen noted reportedly has gained 11kg since last admission Removing fluid with dialysis. (4) Acute hypoxemic respiratory failure: Code(s): J96.01 - Acute respiratory failure with hypoxia Status: Acute Assessment and Plan: secondary to volume overload in the context of COPD continue current interventions Remove fluid with dialysis (5) Benign essential hypertension: Code(s): I10 - Essential (primary) hypertension Status: Chronic Assessment and Plan: Systolic 99-133. follow trend of hemodynamics (6) DM type 2 (diabetes mellitus, type 2): Qualifiers: Diabetes mellitus detention insulin use: without detention use Diabetes mellitus complication status: with kidney complications Diabetes mellitus complication detail: with chronic kidney disease Chronic kidney disease stage: stage 3 (moderate) Qualified Code(s): E11.22 - Type 2 diabetes mellitus with diabetic chronic kidney disease; N18.3 - Chronic kidney disease, stage 3 (moderate) Code(s): E11.9 - Type 2 diabetes mellitus without complications Status: Chronic Assessment and Plan: On Accu-Cheks and sliding scale insulin per hospitalists. Subjective Date/time seen: 03/31/22 11:31 Interval history: The patient feels much better. She is less short of breath and less swollen. She had dialysis day and yesterday. Exam Narrative: General: elderly female in NAD; off BiPAP at this time Heart: normal S1 and S2; no rub Lungs: coarse breath sounds with scattered rhonchi Abdomen: soft, nontender, nondistended, positive bowel sounds Extremities: no cyanosis or clubbing; 1-2+ edema Skin: no rash or subQ nodules Objective Data Vital Signs Vital Signs: Vital Signs - 24 hr 03/30/22 11:40 03/30/22 12:00 03/30/22 12:20 Temperature Pulse Rate 77 78 81 Respiratory Rate Blood Pressure 108/46 L 101/48 L 112/51 L Pulse Oximetry Oxygen Delivery Oxygen Flow Rate Fraction of Inspired Oxygen 03/30/22 12:41 03/30/22 12:51 03/30/22 12:00 Temperature 36.8 C Pulse Rate 84 83 77 Respiratory Rate 18 Blood Pressure 93/47 L 113/57 L Pulse Oximetry Oxygen Delivery Oxygen Flow Rate Fraction of Inspired Oxygen 03/30/22 13:37 03/30/22 13:35 03/30/22 13:42 Temperature Pulse Rate 82 83 Respiratory Rate 24 H 24 H Blood Pressure Pulse Oximetry 95 Oxygen Delivery Nasal Cannula Oxygen Flow Rate 4 Fraction of Inspired Oxygen 07
[2022-03-31 11:38] LABS: Glucose Point of Care 151 mg/dl (65-105)
--- NOTE | 2022-03-31 12:10 | PC.NURSE ---
This patient, Cristina Bravo, was transferred to [[id number] ] on 03/31/22 at 1210. Personal belongings sent with patient. Report given to [MELISA Patton @ [phone] ]. Appropriate documentation sent with patient.
--- NOTE | 2022-03-31 12:49 | PM.IMPN ---
Progress Note: A&P Assessment and Plan (1) Acute congestive heart failure: Code(s): I50.9 - Heart failure, unspecified Status: Acute Assessment and Plan: Continue diuresis Echo noted. does have some diastolic dysfunction. Left ventricular ejection fraction looks to be preserved. Appreciate Cardiology input and Continue hemodialysis (2) COPD (chronic obstructive pulmonary disease): Qualifiers: COPD type: unspecified COPD Qualified Code(s): J44.9 - Chronic obstructive pulmonary disease, unspecified Code(s): J44.9 - Chronic obstructive pulmonary disease, unspecified Status: Chronic Assessment and Plan: No wheezing this morning. Likely chronic and stable. (3) Acute respiratory failure with hypoxia: Code(s): J96.01 - Acute respiratory failure with hypoxia Status: Acute Assessment and Plan: on 4 L of oxygen by nasal cannula Secondary to CHF exacerbation caused by worsening kidney function leading to volume overload. (4) DM type 2 (diabetes mellitus, type 2): Qualifiers: Diabetes mellitus intermediate manager insulin use: without intermediate manager use Diabetes mellitus complication status: with kidney complications Diabetes mellitus complication detail: with chronic kidney disease Chronic kidney disease stage: stage 3 (moderate) Qualified Code(s): E11.22 - Type 2 diabetes mellitus with diabetic chronic kidney disease; N18.3 - Chronic kidney disease, stage 3 (moderate) Code(s): E11.9 - Type 2 diabetes mellitus without complications Status: Chronic Assessment and Plan: holding pioglitazone and Januvia insulin sliding scale (5) Benign essential hypertension: Code(s): I10 - Essential (primary) hypertension Status: Chronic Assessment and Plan: continue home meds continue to monitor (6) Acute kidney injury superimposed on CKD: Code(s): N17.9 - Acute kidney failure, unspecified; N18.9 - Chronic kidney disease, unspecified Status: Acute Assessment and Plan: Hemodialysis. (7) Rheumatoid arthritis: Code(s): M06.9 - Rheumatoid arthritis, unspecified Status: Acute Assessment and Plan: unchanged (8) Morbid obesity due to excess calories: Code(s): E66.01 - Morbid (severe) obesity due to excess calories Status: Chronic Assessment and Plan: lifestyle and diet modifications Subjective Date/time seen: 03/31/22 12:49 Report shortness of breath is much improved. Edema is also improving. Exam Narrative: Patient is laying in a stretcher Const: General: cooperative, well developed, alert, awake, acute distress mild, ill appearing and tired appearing Nutritional Appearance: obese morbidly obese Orientation/consciousness: patient oriented x3 HENMT: Head: normal to inspection, normocephalic and atraumatic Ears: hearing grossly normal bilaterally Face and sinus: normal facial exam Eyes: General: appearance normal, both eyes and all related structures Sclera: sclerae normal Pupils: Equal, round and reactive pupils present EOM: EOMs intact bilaterally Neck: Neck: full ROM, no lymphadenopathy and no JVD Thyroid: thyroid normal Lymphatic: no lymphadenopathy noted Resp: Effort & Inspection: normal respiratory effort and able to speak in complete sentences Auscultation: crackles, wheezes and diminished lung sounds Cardio: Jugular venous distension: no JVD Rate: regular rate Rhythm: regular rhythm Heart sounds: S1 normal heart sound present and S2 normal heart sound present GI: Other: ventral hernia : General: Yes deferred Skin: Rashes: no rashes Wounds: no wounds Neuro: General: patient oriented x3, CN's II-XI intact bilaterally and Unable to assess gait Cranial nerves: Yes CN's II-XII intact bilaterally and Yes Equal, round and reactive pupils present Cognition (Neuro): normal cognition Speech: normal speech Gait exam (Neuro): Unable to assess gait Mot
[2022-03-31 13:06] LABS: Glucose Point of Care 121 mg/dl (65-105)
[2022-03-31 15:33] LABS: Hepatitis C Virus Antibody Negative (Negative)
[2022-03-31 16:48] LABS: Glucose Point of Care 101 mg/dl (65-105)
[2022-03-31 20:38] LABS: Glucose Point of Care 103 mg/dl (65-105)
[2022-03-31] MEDS: traZODone HCL 50 MG TABLET 100 MG PO (20:41)
[2022-04-01] VITALS (33 sets, daily range): BP systolic 73–145; BP diastolic 30–60; PULSE 64–94; RESP 14–32; TEMP 36.3–37.2; O2SAT 92–99
[2022-04-01] MEDS: ALBUTEROL SULFATE NEB 2.5 MG/3 ML INH 5 MG INHALATION ×3 (02:15→20:10)
[2022-04-01 05:20] LABS: Mean Corpuscular HGB Conc 31.4 g/dl (32-36); Mean Corpuscular Hemoglobin 30.4 pg (26-34); Mean Corpuscular Volume 96.9 fl (80-100); Mean Platelet Volume 9.3 fl (7.4-10.4); Platelet Count Result 141 k/mm3 (150-375); Red Blood Count 2.27 M/mm3 (4.2-5.4); Red Cell Distribution Width 15.1 % (11.5-14.5); White Blood Count 14.6 K/mm3 (4.5-10.0)
[2022-04-01 05:22] LABS: Hemoglobin 6.9 g/dL (12.0-15.0)
[2022-04-01 05:28] LABS: Albumin Level 2.4 g/dL (3.5-5.1); Anion Gap 4 mmol/L (8-16); Blood Urea Nitrogen 48 mg/dL (7-17); Calcium 7.3 mg/dL (8.4-10.2); Carbon Dioxide 24 mmol/L (22-30); Chloride 100 mmol/L (98-107); Estimated CRCL calculation 14 ml/min; Estimated Glomerular Filt Rate 13; Glucose 72 mg/dL (65-110); Phosphorus 4.2 mg/dL (2.5-4.5); Potassium 4.1 mmol/L (3.4-5.0); Sodium 128 mmol/L (137-145)
[2022-04-01 05:34] LABS: Hematocrit 22.7 % (37.0-47.0)
[2022-04-01 05:35] LABS: Hemoglobin 6.9 g/dL (12.0-15.0)
[2022-04-01] MEDS: LEVOTHYROXINE SODIUM 125 MCG TABLET PO (05:58)
[2022-04-01 08:23] LABS: Glucose Point of Care 68 mg/dl (65-105)
[2022-04-01] MEDS: DEXTROSE 50% 25 GM/50 ML SYRINGE IV PUSH (08:27)
[2022-04-01] MEDS: CALCIUM CARBONATE (OSCAL) 500 MG TABLET PO (08:28)
[2022-04-01] MEDS: CYANOCOBALAMIN 1,000 MCG TABLET 1000 MCG PO (08:28)
[2022-04-01] MEDS: LIDOCAINE 5% PATCH 1 PATCH TRANSDERM (08:28)
[2022-04-01] MEDS: PYRIDOSTIGMINE BROMIDE 60 MG TABLET PO (08:28)
[2022-04-01] MEDS: LORATADINE 10 MG TABLET PO (08:28)
[2022-04-01] MEDS: dilTIAZem HCL CD 180 MG CAP.ER.24H PO (08:28)
[2022-04-01] MEDS: MULTIVITAMINS THERAPEUTIC TAB (*BKC) 1 TABLET PO (08:28)
[2022-04-01] MEDS: ROSUVASTATIN 10 MG TABLET 20 MG PO (08:28)
[2022-04-01] MEDS: BUMETANIDE INJ 1 MG/4 ML VIAL IV PUSH ×2 (08:28→17:40)
[2022-04-01] MEDS: FOLIC ACID 0.4 MG TABLET 0.8 MG PO ×2 (08:28→17:40)
[2022-04-01] MEDS: CHOLECALCIFEROL 1,000 UNITS TABLET 2000 UNITS PO (08:28)
[2022-04-01] MEDS: VITAMIN B COMPLEX/VIT C CAPSULE 1 EACH PO (08:29)
--- NOTE | 2022-04-01 11:16 | P.PNNP_ITS ---
Progress Note: A&P Assessment and Plan (1) KALEB (acute kidney injury): Code(s): N17.9 - Acute kidney failure, unspecified Status: Acute Assessment and Plan: * Acute kidney injury. * evaluation to date: * renal ultrasound without any acute issues * UA with some white and red blood cells -- culture negative to date * urine electrolytes non-prenal (but done when on diuretics) * urine eosinophils negative * CPK normal * serologies pending * Etiology of the decline in kidney function is unclear. Possibly progression of renal disease, unmasked by treatment of volume overload. * Initiated on hemodialysis on Thursday. * getting another dialysis treatment now. * Catheter is working suboptimally. Will ask surgery to place a PermCath And possibly do another treatment tomorrow? * Potassium and other electrolytes are okay. * Sodium level is stable but low. * Urine output is very low unfortunately. * Will continue to observe for potential renal recovery (2) Chronic kidney disease, stage IV (severe): Code(s): N18.4 - Chronic kidney disease, stage 4 (severe) Status: Chronic Assessment and Plan: * baseline creatinine seems to run around 2.1 - 2.6mg/dl in the last year * presumably due to HTN, DM, vascular disease and age-related change (3) Acute diastolic heart failure: Code(s): I50.31 - Acute diastolic (congestive) heart failure Status: Acute Assessment and Plan: * Cardiology following * severe lower extremity edema seems to be a little better. Still a ways to go. (4) Acute hypoxemic respiratory failure: Code(s): J96.01 - Acute respiratory failure with hypoxia Status: Acute Assessment and Plan: * secondary to volume overload in the context of COPD * continue current interventions * Remove fluid with dialysis If we can get any off today. (5) Benign essential hypertension: Code(s): I10 - Essential (primary) hypertension Status: Chronic Assessment and Plan: * Systolic 99-133. * Will add midodrine. (6) DM type 2 (diabetes mellitus, type 2): Qualifiers: Diabetes mellitus lead solutions architect insulin use: without [facility] use Diabetes mellitus complication status: with kidney complications Diabetes mellitus complication detail: with chronic kidney disease Chronic kidney disease stage: stage 3 (moderate) Qualified Code(s): E11.22 - Type 2 diabetes mellitus with diabetic chronic kidney disease; N18.3 - Chronic kidney disease, stage 3 (moderate) Code(s): E11.9 - Type 2 diabetes mellitus without complications Status: Chronic Assessment and Plan: * On Accu-Cheks and sliding scale insulin per hospitalists. 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 Hemoglobin is below 7 and a unit of red cells has been ordered Subjective Date/time seen: 04/01/22 11:16 Interval history: patient developed more shortness of breath. She is on BiPAP with 40% oxygen bleed in. She is on dialysis. The catheter is working suboptimally but we are trying to get by. Her blood pressure did drop early in dialysis today 80s. UF was stopped and she was given a little saline and the blood pressure came back up. They are calling for albumin to give her some to try to boost the blood pressures so we can take more fluid off. The
--- NOTE | 2022-04-01 11:16 | PM.PNNEP ---
Progress Note: A&P Assessment and Plan (1) KALEB (acute kidney injury): Code(s): N17.9 - Acute kidney failure, unspecified Status: Acute Assessment and Plan: Acute kidney injury. evaluation to date: renal ultrasound without any acute issues UA with some white and red blood cells -- culture negative to date urine electrolytes non-prenal (but done when on diuretics) urine eosinophils negative CPK normal serologies pending Etiology of the decline in kidney function is unclear. Possibly progression of renal disease, unmasked by treatment of volume overload. Initiated on hemodialysis on Thursday. getting another dialysis treatment now. Catheter is working suboptimally. Will ask surgery to place a PermCath And possibly do another treatment tomorrow? Potassium and other electrolytes are okay. Sodium level is stable but low. Urine output is very low unfortunately. Will continue to observe for potential renal recovery (2) Chronic kidney disease, stage IV (severe): Code(s): N18.4 - Chronic kidney disease, stage 4 (severe) Status: Chronic Assessment and Plan: baseline creatinine seems to run around 2.1 - 2.6mg/dl in the last year presumably due to HTN, DM, vascular disease and age-related change (3) Acute diastolic heart failure: Code(s): I50.31 - Acute diastolic (congestive) heart failure Status: Acute Assessment and Plan: Cardiology following severe lower extremity edema seems to be a little better. Still a ways to go. (4) Acute hypoxemic respiratory failure: Code(s): J96.01 - Acute respiratory failure with hypoxia Status: Acute Assessment and Plan: secondary to volume overload in the context of COPD continue current interventions Remove fluid with dialysis If we can get any off today. (5) Benign essential hypertension: Code(s): I10 - Essential (primary) hypertension Status: Chronic Assessment and Plan: Systolic 99-133. Will add midodrine. (6) DM type 2 (diabetes mellitus, type 2): Qualifiers: Diabetes mellitus buttermaker helper insulin use: without [facility] use Diabetes mellitus complication status: with kidney complications Diabetes mellitus complication detail: with chronic kidney disease Chronic kidney disease stage: stage 3 (moderate) Qualified Code(s): E11.22 - Type 2 diabetes mellitus with diabetic chronic kidney disease; N18.3 - Chronic kidney disease, stage 3 (moderate) Code(s): E11.9 - Type 2 diabetes mellitus without complications Status: Chronic Assessment and Plan: On Accu-Cheks and sliding scale insulin per hospitalists. 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 Hemoglobin is below 7 and a unit of red cells has been ordered Subjective Date/time seen: 04/01/22 11:16 Interval history: patient developed more shortness of breath. She is on BiPAP with 40% oxygen bleed in. She is on dialysis. The catheter is working suboptimally but we are trying to get by. Her blood pressure did drop early in dialysis today 80s. UF was stopped and she was given a little saline and the blood pressure came back up. They are calling for albumin to give her some to try to boost the blood pressures so we can take more fluid off. The patient was seen at 10:50 a.m. Exam Narrative: General: elderly female in NAD; back on BiPAP Heart: normal S1 and S2; no rub or gallop Lungs: coarse breath sounds with scattered rhonchi Abdomen: soft, nontender, nondistended, positive bowel sounds Extremities: 1-2+ edema Skin: no rash Objective Data Vital Signs Vital Signs: Vital Signs - 24 hr 03/31/22 12:00 03/31/22 13:29 03/31/22 14:14 Temperature 36.4 C L Pulse Rate 73 78 Respiratory Rate 18 Blood Pressur
[2022-04-01] MEDS: MIDODRINE HCL 10 MG TABLET PO ×2 (12:34→17:40)
[2022-04-01 12:44] LABS: Glucose Point of Care 79 mg/dl (65-105)
--- NOTE | 2022-04-01 12:44 | PM.IMPN ---
Progress Note: A&P Assessment and Plan (1) Acute congestive heart failure: Code(s): I50.9 - Heart failure, unspecified Status: Acute Assessment and Plan: Continue diuresis Echo noted. does have some diastolic dysfunction. Left ventricular ejection fraction looks to be preserved. Appreciate Cardiology input and Continue hemodialysis (2) COPD (chronic obstructive pulmonary disease): Qualifiers: COPD type: unspecified COPD Qualified Code(s): J44.9 - Chronic obstructive pulmonary disease, unspecified Code(s): J44.9 - Chronic obstructive pulmonary disease, unspecified Status: Chronic Assessment and Plan: No wheezing this morning. Likely chronic and stable. (3) Acute respiratory failure with hypoxia: Code(s): J96.01 - Acute respiratory failure with hypoxia Status: Acute Assessment and Plan: Patient is on BiPAP this morning. Secondary to CHF exacerbation caused by worsening kidney function leading to volume overload. Will monitor with improving volume status with hemodialysis (4) DM type 2 (diabetes mellitus, type 2): Qualifiers: Diabetes mellitus correction insulin use: without long wall mining machine tender use Diabetes mellitus complication status: with kidney complications Diabetes mellitus complication detail: with chronic kidney disease Chronic kidney disease stage: stage 3 (moderate) Qualified Code(s): E11.22 - Type 2 diabetes mellitus with diabetic chronic kidney disease; N18.3 - Chronic kidney disease, stage 3 (moderate) Code(s): E11.9 - Type 2 diabetes mellitus without complications Status: Chronic Assessment and Plan: holding pioglitazone and Januvia insulin sliding scale (5) Benign essential hypertension: Code(s): I10 - Essential (primary) hypertension Status: Chronic Assessment and Plan: continue home meds continue to monitor (6) Acute kidney injury superimposed on CKD: Code(s): N17.9 - Acute kidney failure, unspecified; N18.9 - Chronic kidney disease, unspecified Status: Acute Assessment and Plan: Hemodialysis. (7) Rheumatoid arthritis: Code(s): M06.9 - Rheumatoid arthritis, unspecified Status: Acute Assessment and Plan: unchanged (8) Morbid obesity due to excess calories: Code(s): E66.01 - Morbid (severe) obesity due to excess calories Status: Chronic Assessment and Plan: lifestyle and diet modifications Subjective Date/time seen: 04/01/22 12:44 Patient is on BiPAP for ongoing shortness of breath. Exam Narrative: Patient is laying in a stretcher Const: General: cooperative, well developed, alert, awake, acute distress mild, ill appearing and tired appearing Nutritional Appearance: obese morbidly obese Orientation/consciousness: patient oriented x3 HENMT: Head: normal to inspection, normocephalic and atraumatic Ears: hearing grossly normal bilaterally Face and sinus: normal facial exam Eyes: General: appearance normal, both eyes and all related structures Sclera: sclerae normal Pupils: Equal, round and reactive pupils present EOM: EOMs intact bilaterally Neck: Neck: full ROM, no lymphadenopathy and no JVD Thyroid: thyroid normal Lymphatic: no lymphadenopathy noted Resp: Effort & Inspection: normal respiratory effort and able to speak in complete sentences Auscultation: crackles, wheezes and diminished lung sounds Cardio: Jugular venous distension: no JVD Rate: regular rate Rhythm: regular rhythm Heart sounds: S1 normal heart sound present and S2 normal heart sound present GI: Other: ventral hernia : General: Yes deferred Skin: Rashes: no rashes Wounds: no wounds Neuro: General: patient oriented x3, CN's II-XI intact bilaterally and Unable to assess gait Cranial nerves: Yes CN's II-XII intact bilaterally and Yes Equal, round and reactive pupils present Cognition (Neuro): normal cognition Speech: normal speech Gai
--- NOTE | 2022-04-01 14:02 | WPDANESEPPF ---
Anes - Initial Pre Proc Eval Procedure: Operation Date: 04/01/22 14:00 Proposed Procedures p Insertion Tunneled Dialysis Catheter - Cole Mazariegos MD Date/Time: 04/01/22 14:02 Surgeon: Avery Henry MD Pre Op Diagnosis: Pulmonary edema,chf,hyperkalemia Patient Data Age: 81 Gender: F Height: 1.63 m Weight: 103 kg Last Vital Signs Temp 36.8 C 04/01/22 08:00 Pulse 92 04/01/22 08:16 Resp 26 H 04/01/22 08:16 BP 119/42 L 04/01/22 08:00 Pulse Ox 94 04/01/22 12:00 O2 Del Method BiPAP 04/01/22 12:00 O2 Flow Rate 3 03/31/22 14:10 FiO2 30 04/01/22 12:00 Allergies Allergy/AdvReac Type Severity Reaction Status Date / Time iohexol Allergy Intermediate Itching Verified 03/06/22 09:36 Penicillins Allergy Mild Rash Verified 03/06/22 09:36 Cephalosporins Allergy Hives Verified 03/06/22 09:36 clindamycin Allergy Unknown Verified 03/06/22 09:36 doxycycline Allergy Itching Verified 03/06/22 09:36 risedronate sodium Allergy Swelling Verified 03/06/22 09:36 of the Eye rofecoxib AdvReac Headache Verified 03/26/22 20:56 Home Medications Medication Instructions Recorded Confirmed Type multivitamin 1 tablet PO DAILY 03/28/20 03/27/22 History calcium carbonate 500 mg calcium 500 mg PO DAILY 05/02/20 03/27/22 History (1,250 mg) capsule cyanocobalamin (vitamin B-12) 1,000 mcg PO DAILY 09/18/20 03/27/22 History 1,000 mcg tablet folic acid 800 mcg tablet 0.8 mg PO BID 09/18/20 03/27/22 History albuterol sulfate 90 mcg/actuation 2 inh inhalation Q4-6H PRN 06/17/21 03/27/22 Rx aerosol inhaler shortness of breath or wheezing #25.5 grams rosuvastatin 20 mg tablet 20 mg PO DAILY #90 tabs 06/17/21 03/27/22 Rx cholecalciferol (vitamin D3) 25 50 mcg PO DAILY 07/23/21 03/27/22 History mcg (1,000 unit) tablet fexofenadine 180 mg tablet 180 mg PO DAILY 07/29/21 03/27/22 History bisacodyl 10 mg rectal suppository 10 mg RECTAL DAILY PRN 08/06/21 03/27/22 Rx (Laxative (bisacodyl)) constipation #12 ea iron-vitamin B complex with C 1 tablet PO DAILY 12/23/21 03/27/22 History tablet methylprednisolone 4 mg tablets in See Rx Instructions PO PER PKG DIR 01/23/22 03/27/22 Rx a dose pack (Medrol (Ramu)) #21 ea baclofen 5 mg tablet 5 mg PO TID PRN muscle spasm #30 02/26/22 03/27/22 Rx tabs diltiazem HCl 180 mg 1 cap PO DAILY 03/06/22 03/27/22 History capsule,extended release 24 hr levothyroxine 125 mcg tablet 1 tablet PO DAILY 03/06/22 03/27/22 History pioglitazone 15 mg tablet 2 tablet PO DAILY 03/06/22 03/27/22 History sitagliptin 50 mg tablet (Januvia) 1 tablet PO DAILY 03/06/22 03/27/22 History trazodone 50 mg tablet 2 tablet PO HS 03/06/22 03/27/22 History pyridostigmine bromide 60 mg tablet 60 mg PO QAM #30 tabs 03/11/22 03/27/22 Rx furosemide 20 mg tablet 20 mg PO DAILY 03/27/22 03/27/22 History lidocaine 4 % topical patch 1 patch topical DAILY 03/27/22 03/27/22 History (Blue-Emu Lidocaine Patch) sodium chloride 0.65 % nasal spray 1 spray intranasal Q4H PRN 03/27/22 03/27/22 History aerosol (Deep Sea Nasal) Congestion Laboratory Tests 03/31/22 03/31/22 03/31/22 11:58 16:45 20:13 WBC RBC Hgb Hct MCV MCH MCHC RDW Plt Count MPV Sodium Potassium Chloride Carbon Dioxide Anion Gap BUN Creatinine Estim Creat Clear Calc Estimated GFR Glucose POC Capillary Glucose 101 mg/dl mg/dl 103 mg/dl mg/dl (65-105) (65-105) Calcium Phosphorus Albumin Hepatitis C Ab Screen Negative (Negative) 04/01/22 04/01/22 04/01/22 05:06 05:06 05:29 WBC 14.6 K/mm3 H K/mm3 (4.5-10.0) RBC 2.27 M/mm3 L M/mm3 (4.2-5.4) Hgb 6.9 g/dL L* g/dL 6.9 g/dL L* g
[2022-04-01] MEDS: HEPARIN SODIUM 1,000 UNITS/ML VIAL 1000 UNITS IV PUSH (14:19)
[2022-04-01] MEDS: BUPIVACAINE/EPINEPHRINE 0.25% 50 ML VIAL 20 ML INFILTRATE (14:21)
[2022-04-01] MEDS: SODIUM CHLORIDE 0.9% IV 500 ML 30 ML IV CONT ×2 (14:37→16:27)
--- NOTE | 2022-04-01 14:38 | WPDHPUPDATE1 ---
History and Physical Update Update Date/Time: 04/01/22 14:38 History and Physical has been reviewed, including an updated exam of the patient. There are changes in the patient's condition. The patient has CHF has improved slightly but her kidney function continues to be less than adequate. She is had to sessions of hemodialysis through a temporary femoral line. This is not functioning well. Therefore, I have been asked to place a tunneled dialysis catheter for more permanent use for hemodialysis. Risks, benefits, and alternatives have been discussed and questions answered. Patient agrees to proceed with procedure.
--- NOTE | 2022-04-01 15:59 | PHAR ---
SPOKE WITH DULCE OCONNELL ABOUT ADDITIONAL 1G OF VANCOMYCIN - STATED THAT IT SHOULD BE 2 GRAMS TOTAL AND VERIFIED IT WASN'T TO BE SPACED FROM INITIAL 1G DOSE GIVEN APPROX 1 HOUR PRIOR.
[2022-04-01] MEDS: HEPARIN SODIUM, PORCINE 10,000 UNITS/10 ML VIAL 5000 UNITS IV PUSH (16:07)
--- NOTE | 2022-04-01 16:35 | W.PM.PROC2 ---
Procedure Note - Detailed Date of Procedure 04/01/22 Pre-op Diagnosis 1. acute on chronic renal failure 2.Pulmonary edema,chf,hyperkalemia Post-op Diagnosis Same Procedure Performed Ultrasound-guided placement of tunneled dialysis catheter. Surgeon Cole Mazariegos MD Commercial Loan Processor Janna VINCENT.OR electrical assistant Anesthesia Other (GIVS) Indications The patient has end-stage renal disease with need for access for hemodialysis Findings Normal Vascular anatomy in the Rt. neck. Description of Procedure The patient was placed in the supine position on the operating table and after induction of adequate mask general anesthesia by the nurse door to door sales representative, we carefully rotated the patient's head and tilted slightly to the left then prepping both sides of the neck and chest with chlorhexidine. After waiting 3 minutes I carefully draped the patient, and we performed a time-out confirming the patient's site of surgery. Because of the patients size, a 32 cm DuraFlow catheter was selected. Using the ultrasound probe we carefully examined the anatomy in the right neck and saved a image of this in the chart. I used ultrasound to identify the right jugular vein in the mid neck and this was cannulated under direct vision with an 18-gauge Arrow needle on a syringe. Good dark blood was aspirated, the J-guidewire was advanced through the needle and into the central venous system using the usual Seldinger technique. C-arm fluoroscopy was used to confirm that the wire was then through the central venous system and then we removed the needle and blue guide off the wire. Following this, we measured the DuraFlow catheter such that the tip would be just into the right atrium or in the distal superior vena cava. A hemostat was placed on the drapes over the chest to guide where we would place this. Then the catheter was measured back to the entry site of the J- wire in a curvilinear fashion and down to the patient's chest overlying the right clavicle. Local anesthetic was placed into 3 longoria, the exit site and then 2 more on the patient's lateral neck such that a curvilinear path could be dissected through the subcutaneous tissues up to the insertion site on the patients right neck. Local anesthetic was infiltrated along the tract prior to tunneling. Incisions were made with an 11 blade knife at the exit site and the 2 counter incisions and then an 11 blade at the wire. The tunneling device was connected to the catheter and this was pulled through these incisions to make the subcutaneous tunnel a curvilinear course through the subcutaneous tissues to the insertion site. Then the wire was serially dilated with a 12, 14, and then a 16-Vietnamese dilator over the pull away sheath. We watched the 16-Vietnamese dilator and sheath go down into the central venous system with C-arm fluoroscopy and then removed the dilator wire after carefully covering the end of the catheter. I lost some blood, as we then inserted the catheter down into the central venous system. The catheter was held in place with a DeBakey forceps and then we carefully tore away the sheath leaving the catheter within the subcutaneous tissues and down into the Rt. jugular vein. Following this, C-arm fluoroscopy was used to examine the full course of the catheter. The tip was just into the right atrium and there was a good curvilinear course of the catheter in the neck down to the exit site over the right clavicle. Minimal bleeding was continuing, so we then went ahead and closed these incisions with some buried subcutaneous sutures of 4-0 Monocryl directly over the catheter at the insertion site and then buried subcutaneous sutures at each of the incisions except the exit site. 3-0 nylon was used to suture the catheter at its hub to the skin and an antibiotic disc was placed at the exit site. Tegaderm and a 2 X 2 gauze were applied over this as an occlusive dressing and the patient was taken to the recovery room in good condition.
[2022-04-01 16:49] LABS: Glucose Point of Care 112 mg/dl (65-105)
--- NOTE | 2022-04-01 17:04 | SUR.PHASEI ---
1700 - dr. pressley in recovery room, speaking with pt's family via phone
[2022-04-01 19:56] LABS: Glucose Point of Care 103 mg/dl (65-105)
[2022-04-01 19:56] LABS: Glucose Point of Care 166 mg/dl (65-105)
[2022-04-01] MEDS: traZODone HCL 50 MG TABLET 100 MG PO (20:59)
[2022-04-02] VITALS (43 sets, daily range): BP systolic 98–150; BP diastolic 26–71; PULSE 69–98; RESP 12–92; TEMP 36.1–37; O2SAT 81–99
[2022-04-02] MEDS: ALBUTEROL SULFATE NEB 2.5 MG/3 ML INH 5 MG INHALATION ×4 (02:23→21:00)
[2022-04-02] MEDS: LEVOTHYROXINE SODIUM 125 MCG TABLET PO (05:43)
[2022-04-02 06:18] LABS: Hematocrit 21.5 % (37.0-47.0); Mean Corpuscular HGB Conc 30.7 g/dl (32-36); Mean Corpuscular Hemoglobin 30.4 pg (26-34); Mean Corpuscular Volume 99.1 fl (80-100); Mean Platelet Volume 9.9 fl (7.4-10.4); Platelet Count Result 143 k/mm3 (150-375); Red Blood Count 2.17 M/mm3 (4.2-5.4); Red Cell Distribution Width 15.2 % (11.5-14.5); White Blood Count 14.8 K/mm3 (4.5-10.0)
[2022-04-02 06:24] LABS: Hemoglobin 6.6 g/dL (12.0-15.0)
[2022-04-02 06:57] LABS: Albumin Level 2.4 g/dL (3.5-5.1); Anion Gap 5 mmol/L (8-16); Blood Urea Nitrogen 49 mg/dL (7-17); Calcium 7.3 mg/dL (8.4-10.2); Carbon Dioxide 27 mmol/L (22-30); Chloride 98 mmol/L (98-107); Estimated CRCL calculation 13 ml/min; Estimated Glomerular Filt Rate 11; Glucose 110 mg/dL (65-110); Phosphorus 4.4 mg/dL (2.5-4.5); Potassium 4.1 mmol/L (3.4-5.0); Sodium 130 mmol/L (137-145)
[2022-04-02 07:32] LABS: Glucose Point of Care 118 mg/dl (65-105)
[2022-04-02] MEDS: ALBUTEROL SULFATE NEB 2.5 MG/0.5 ML INH ×2 (09:25→15:00)
[2022-04-02 09:44] LABS: Alveolar/Arterial O2 Gradient 498.7 mmHg; Base Excess ABG 1.3 mEq/l (+/-2.0); Fractional Inspired Oxygen 100 %; HCO3 ABG 27.8 mEq/l (22.0-26.0); Oxygen Content ABG 10.7 %vol (16.0-22.0); Oxygen Saturation ABG 98.9 % (95.0-100.0); PCO2 ABG 55.5 mmHg (35.0-45.0); PO2 ABG 158.8 mmHg (80.0-100.0); PO2 FiO2 Ratio Arterial Blood 1.59 %; pH ABG 7.318 (7.350-7.450)
[2022-04-02 09:49] LABS: Device NON-INVASIVE VENT; Modified Allen's Test Pass; Site Drawn RIGHT RADIAL; Total Hemoglobin 7.6 g/dL (12.0-18.0)
[2022-04-02 09:50] LABS: Non-Invasive Expiratory Pressure 7 CMH2O; Non-Invasive Inspiratory Pressure 12 CMH2O; Non-Invasive Vent Rate 12 /MIN
--- NOTE | 2022-04-02 10:27 | WPDANESPN ---
Anes - Prog Note Post-Op Date/Time: 04/02/22 10:27 Vital Signs: Last Vital Signs Temp 36.3 C L 04/02/22 08:02 Pulse 88 04/02/22 09:40 Resp 28 H 04/02/22 09:40 BP 130/39 L 04/02/22 08:02 Pulse Ox 81 L 04/02/22 10:16 O2 Del Method Nasal Cannula 04/02/22 10:16 O2 Flow Rate 10 04/02/22 10:16 FiO2 30 04/02/22 04:00 Pain Score (VAS): 0 I/O: Intake & Output 04/01/22 04/02/22 04/02/22 23:59 07:59 15:59 Intake Total 240 Output Total 150 100 Balance 90 -100 Laboratory Tests 04/02/22 05:19 04/02/22 05:19 04/01/22 04/01/22 04/01/22 12:40 13:37 16:30 WBC RBC Hgb Hct MCV MCH MCHC RDW Plt Count MPV Puncture Site ABG pH ABG pCO2 ABG pO2 ABG PO2/FiO2 Ratio ABG HCO3 ABG O2 Saturation ABG O2 Content ABG Base Excess A-a Gradient Oxyhemoglobin Total Hemoglobin O2 Delivery Device O2 Liters/Min Vent Rate FiO2 Expiratory Pressure Inspiratory Pressure Sodium Potassium Chloride Carbon Dioxide Anion Gap BUN Creatinine Estim Creat Clear Calc Estimated GFR Glucose POC Capillary Glucose 79 112 H Calcium Phosphorus Albumin Blood Type A Positive Antibody Screen Negative Crossmatch See Detail 04/01/22 04/01/22 04/02/22 18:34 19:54 05:19 WBC 14.8 H RBC 2.17 L Hgb 6.6 L* Hct 21.5 L MCV 99.1 MCH 30.4 MCHC 30.7 L RDW 15.2 H Plt Count 143 L MPV 9.9 Puncture Site ABG pH ABG pCO2 ABG pO2 ABG PO2/FiO2 Ratio ABG HCO3 ABG O2 Saturation ABG O2 Content ABG Base Excess A-a Gradient Oxyhemoglobin Total Hemoglobin O2 Delivery Device O2 Liters/Min Vent Rate FiO2 Expiratory Pressure Inspiratory Pressure Sodium Potassium Chloride Carbon Dioxide Anion Gap BUN Creatinine Estim Creat Clear Calc Estimated GFR Glucose POC Capillary Glucose 103 166 H Calcium Phosphorus Albumin Blood Type Antibody Screen Crossmatch 04/02/22 04/02/22 04/02/22 05:19 07:28 09:30 WBC RBC Hgb Hct MCV MCH MCHC RDW Plt Count MPV Puncture Site Right radial ABG pH 7.318 L ABG pCO2 55.5 H ABG pO2 158.8 H ABG PO2/FiO2 Ratio 1.59 ABG HCO3 27.8 H ABG O2 Saturation 98.9 ABG O2 Content 10.7 L ABG Base Excess 1.3 A-a Gradient 498.7 Oxyhemoglobin 97.0 Total Hemoglobin 7.6 L* O2 Delivery Device Non-invasive vent O2 Liters/Min Not Reportable Vent Rate 12 FiO2 100 Expiratory Pressure 7 Inspiratory Pressure 12 Sodium 130 L Potassium 4.1 Chloride 98 Carbon Dioxide 27 Anion Gap 5 L BUN 49 H Creatinine 3.80 H Estim Creat Clear Calc 13 Estimated GFR 11 L Glucose 110 POC Capillary Glucose 118 H Calcium 7.3 L Phosphorus 4.4 Albumin 2.4 L Blood Type Antibody Screen Crossmatch Patient Feedback: Patient satisfied with anesthetic care.
[2022-04-02] MEDS: CHOLECALCIFEROL 1,000 UNITS TABLET 2000 UNITS PO (11:19)
[2022-04-02] MEDS: LIDOCAINE 5% PATCH 1 PATCH TRANSDERM (11:19)
[2022-04-02] MEDS: BUMETANIDE INJ 1 MG/4 ML VIAL IV PUSH ×2 (11:19→17:51)
[2022-04-02] MEDS: MIDODRINE HCL 10 MG TABLET PO ×2 (11:19→17:52)
[2022-04-02] MEDS: FOLIC ACID 0.4 MG TABLET 0.8 MG PO ×2 (11:19→17:53)
[2022-04-02] MEDS: CYANOCOBALAMIN 1,000 MCG TABLET 1000 MCG PO (11:20)
[2022-04-02] MEDS: CALCIUM CARBONATE (OSCAL) 500 MG TABLET PO (11:20)
[2022-04-02] MEDS: ROSUVASTATIN 10 MG TABLET 20 MG PO (11:20)
[2022-04-02] MEDS: PYRIDOSTIGMINE BROMIDE 60 MG TABLET PO (11:20)
[2022-04-02] MEDS: LORATADINE 10 MG TABLET PO (11:20)
[2022-04-02] MEDS: MULTIVITAMINS THERAPEUTIC TAB (*BKC) 1 TABLET PO (11:20)
[2022-04-02] MEDS: dilTIAZem HCL CD 180 MG CAP.ER.24H PO (11:21)
[2022-04-02] MEDS: VITAMIN B COMPLEX/VIT C CAPSULE 1 EACH PO (11:23)
[2022-04-02 11:52] LABS: Glucose Point of Care 120 mg/dl (65-105)
[2022-04-02 12:10] LABS: Alveolar/Arterial O2 Gradient 485.7 mmHg; Base Excess ABG 0.4 mEq/l (+/-2.0); Fractional Inspired Oxygen 85 %; HCO3 ABG 27.1 mEq/l (22.0-26.0); Oxygen Content ABG 9.7 %vol (16.0-22.0); Oxygen Saturation ABG 88.9 % (95.0-100.0); Oxyhemoglobin 90.1 % THb (90.0-100.0); PCO2 ABG 56.3 mmHg (35.0-45.0); PO2 ABG 61.9 mmHg (80.0-100.0); PO2 FiO2 Ratio Arterial Blood 0.73 %
[2022-04-02 12:14] LABS: Total Hemoglobin 7.6 g/dL (12.0-18.0)
[2022-04-02 12:15] LABS: Device NON-INVASIVE VENT; Modified Allen's Test Pass; Site Drawn LEFT RADIAL
[2022-04-02 12:16] LABS: Non-Invasive Expiratory Pressure 7 CMH2O; Non-Invasive Inspiratory Pressure 12 CMH2O; Non-Invasive Vent Rate 12 /MIN
[2022-04-02 15:09] LABS: Albumin 2.2 g/dL (3.8-4.8); Alpha 1 Globulin 0.5 g/dL (0.2-0.3); Alpha 2 Globulin 0.8 g/dL (0.5-0.9); Beta 1 Globulin 0.3 g/dL (0.4-0.6); Gamma Globulin 0.4 g/dL (0.8-1.7); Protein, Total 4.4 g/dL (6.1-8.1)
--- NOTE | 2022-04-02 16:00 | PC.NURSE ---
2 units prbc infused during dialysis treatment. 2 L removed, treatment lasted 3.5 hours.
[2022-04-02 17:08] LABS: Glucose Point of Care 108 mg/dl (65-105)
[2022-04-02 17:48] LABS: Anti Glomerular Basement Memb <1.0 AI (<1.0)
--- NOTE | 2022-04-02 17:53 | PM.IMPN ---
Progress Note: A&P Assessment and Plan (1) Acute congestive heart failure: Code(s): I50.9 - Heart failure, unspecified Status: Acute Assessment and Plan: Continue diuresis Echo noted. does have some diastolic dysfunction. Left ventricular ejection fraction looks to be preserved. Appreciate Cardiology input and Continue hemodialysis 04/02/2022 interval history: moderately obese patient presented with shortness of breath found to have diastolic congestive heart failure and volume overload seen by Nephrology patient is being diuresed but needs dialysis to remove the excess fluid dialysis was started on 03/29, patient remains short of breath dyspnea ABG showed hypercapnia and patient was placed on BiPAP which did improve her symptoms and patient will have dialysis this morning in her room and will continue to monitor, will be seen by car escort further recommendation to. (2) COPD (chronic obstructive pulmonary disease): Qualifiers: COPD type: unspecified COPD Qualified Code(s): J44.9 - Chronic obstructive pulmonary disease, unspecified Code(s): J44.9 - Chronic obstructive pulmonary disease, unspecified Status: Chronic Assessment and Plan: No wheezing this morning. Likely chronic and stable. (3) Acute respiratory failure with hypoxia: Code(s): J96.01 - Acute respiratory failure with hypoxia Status: Acute Assessment and Plan: Patient is on BiPAP this morning. Secondary to CHF exacerbation caused by worsening kidney function leading to volume overload. 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: without half-way use Diabetes mellitus complication status: with kidney complications Diabetes mellitus complication detail: with chronic kidney disease Chronic kidney disease stage: stage 3 (moderate) Qualified Code(s): E11.22 - Type 2 diabetes mellitus with diabetic chronic kidney disease; N18.3 - Chronic kidney disease, stage 3 (moderate) Code(s): E11.9 - Type 2 diabetes mellitus without complications Status: Chronic Assessment and Plan: holding pioglitazone and Januvia insulin sliding scale (5) Benign essential hypertension: Code(s): I10 - Essential (primary) hypertension Status: Chronic Assessment and Plan: continue home meds continue to monitor (6) Acute kidney injury superimposed on CKD: Code(s): N17.9 - Acute kidney failure, unspecified; N18.9 - Chronic kidney disease, unspecified Status: Acute Assessment and Plan: Hemodialysis. (7) Rheumatoid arthritis: Code(s): M06.9 - Rheumatoid arthritis, unspecified Status: Acute Assessment and Plan: unchanged (8) Morbid obesity due to excess calories: Code(s): E66.01 - Morbid (severe) obesity due to excess calories Status: Chronic Assessment and Plan: lifestyle and diet modifications Subjective Date/time seen: 04/02/22 17:53 04/02/2022 interval history: moderately obese patient presented with shortness of breath found to have diastolic congestive heart failure and volume overload seen by Nephrology patient is being diuresed but needs dialysis to remove the excess fluid dialysis was started on 03/29, patient remains short of breath dyspnea ABG showed hypercapnia and patient was placed on BiPAP which did improve her symptoms and patient will have dialysis this morning in her room and will continue to monitor, will be seen by car escort further recommendation to. Review of Systems Constitutional: Constitutional: Denies chills, Denies fatigue, Denies fever(s), Denies night sweats and Denies weakness Exam Narrative: moderately obese Patient is comfortable, NAD HEENT: eyes are clear and none icteric, on BiPAP LUNGS: normal respiratory effort ABD: distended Lower extremities: no edema SK
[2022-04-02 19:10] LABS: Hemoglobin 9.2 g/dL (12.0-15.0)
[2022-04-02 19:18] LABS: Hepatitis B Core Ab Total Nonreactive (Nonreactive)
[2022-04-02 19:38] LABS: Glucose Point of Care 146 mg/dl (65-105)
[2022-04-02 20:50] LABS: Total Protein/Creatinine Ratio 1239 mg/g creat (21-161)
[2022-04-02] MEDS: traZODone HCL 50 MG TABLET 100 MG PO (21:14)
[2022-04-02 22:31] LABS: ANA Pattern Nuclear, Nucleolar
[2022-04-03] VITALS (38 sets, daily range): BP systolic 96–141; BP diastolic 28–59; PULSE 64–99; RESP 16–35; TEMP 0–36.8; O2SAT 90–100; BMI 38.9
[2022-04-03] MEDS: ALBUTEROL SULFATE NEB 2.5 MG/3 ML INH 5 MG INHALATION ×4 (03:00→20:19)
[2022-04-03 05:19] LABS: Kappa\\Lambda Light Chains 1.47 (0.26-1.65); Lambda Light Chain 28.5 mg/L (5.7-26.3)
[2022-04-03 05:39] LABS: Hematocrit 26.6 % (37.0-47.0); Hemoglobin 8.5 g/dL (12.0-15.0); Mean Corpuscular Hemoglobin 30.9 pg (26-34); Mean Corpuscular Volume 96.7 fl (80-100); Mean Platelet Volume 9.4 fl (7.4-10.4); Platelet Count Result 130 k/mm3 (150-375); Red Blood Count 2.75 M/mm3 (4.2-5.4); Red Cell Distribution Width 15.5 % (11.5-14.5); White Blood Count 14.4 K/mm3 (4.5-10.0)
[2022-04-03 05:48] LABS: Albumin Level 2.5 g/dL (3.5-5.1); Anion Gap 2 mmol/L (8-16); Blood Urea Nitrogen 29 mg/dL (7-17); Calcium 7.3 mg/dL (8.4-10.2); Carbon Dioxide 32 mmol/L (22-30); Chloride 97 mmol/L (98-107); Estimated CRCL calculation 16 ml/min; Estimated Glomerular Filt Rate 16; Glucose 91 mg/dL (65-110); Phosphorus 3.6 mg/dL (2.5-4.5); Potassium 3.9 mmol/L (3.4-5.0); Sodium 131 mmol/L (137-145)
--- NOTE | 2022-04-03 05:51 | PC.NURSE ---
pigtail catheter removed from rt groin. sheath intact, removed at 0539. held pressure for 10 min. hemostasis at 0550. gauze and tegaderm applied. no hematoma or bleeding noted.
[2022-04-03] MEDS: LEVOTHYROXINE SODIUM 125 MCG TABLET PO (05:55)
[2022-04-03 07:15] LABS: Glucose Point of Care 96 mg/dl (65-105)
[2022-04-03] MEDS: BUMETANIDE INJ 1 MG/4 ML VIAL IV PUSH ×2 (09:06→18:51)
[2022-04-03] MEDS: CYANOCOBALAMIN 1,000 MCG TABLET 1000 MCG PO (09:09)
[2022-04-03] MEDS: CHOLECALCIFEROL 1,000 UNITS TABLET 2000 UNITS PO (09:09)
[2022-04-03] MEDS: dilTIAZem HCL CD 180 MG CAP.ER.24H PO (09:09)
[2022-04-03] MEDS: PYRIDOSTIGMINE BROMIDE 60 MG TABLET PO (09:09)
[2022-04-03] MEDS: LORATADINE 10 MG TABLET PO (09:09)
[2022-04-03] MEDS: MULTIVITAMINS THERAPEUTIC TAB (*BKC) 1 TABLET PO (09:10)
[2022-04-03] MEDS: FOLIC ACID 0.4 MG TABLET 0.8 MG PO ×2 (09:10→18:52)
[2022-04-03] MEDS: CALCIUM CARBONATE (OSCAL) 500 MG TABLET PO (09:10)
[2022-04-03] MEDS: MIDODRINE HCL 10 MG TABLET PO ×3 (09:10→18:51)
[2022-04-03] MEDS: LIDOCAINE 5% PATCH 1 PATCH TRANSDERM (09:11)
[2022-04-03] MEDS: ROSUVASTATIN 10 MG TABLET 20 MG PO (09:11)
[2022-04-03] MEDS: VITAMIN B COMPLEX/VIT C CAPSULE 1 EACH PO (09:11)
[2022-04-03 12:11] LABS: Glucose Point of Care 155 mg/dl (65-105)
--- NOTE | 2022-04-03 14:17 | PCNSR ---
On 04/03/22, the student, Stella Bagley, provided care and completed [facility] documentation on this patient. I have reviewed the student's documentation and agree with the findings.
--- NOTE | 2022-04-03 14:18 | PCNSR ---
On 04/03/22, the student, Teodoro Valadez, provided care and completed [facility] documentation on this patient. I have reviewed the student's documentation and agree with the findings.
--- NOTE | 2022-04-03 14:35 | P.PNNP_ITS ---
Progress Note: A&P Assessment and Plan (1) KALEB (acute kidney injury): Code(s): N17.9 - Acute kidney failure, unspecified Status: Acute Assessment and Plan: * Acute kidney injury. * evaluation to date: * renal ultrasound without any acute issues * UA with some white and red blood cells -- culture negative to date * urine electrolytes non-prenal (but done when on diuretics) * urine eosinophils negative * CPK normal * serologies pending * Etiology of the decline in kidney function is unclear. Possibly progression of renal disease, unmasked by treatment of volume overload. * she will get another dialysis treatment today. (2) Chronic kidney disease, stage IV (severe): Code(s): N18.4 - Chronic kidney disease, stage 4 (severe) Status: Chronic Assessment and Plan: * baseline creatinine seems to run around 2.1 - 2.6mg/dl in the last year * presumably due to HTN, DM, vascular disease and age-related change (3) Acute diastolic heart failure: Code(s): I50.31 - Acute diastolic (congestive) heart failure Status: Acute Assessment and Plan: * Cardiology following * She still has some swelling * remove fluid with dialysis. She is not making much urine. (4) Acute hypoxemic respiratory failure: Code(s): J96.01 - Acute respiratory failure with hypoxia Status: Acute Assessment and Plan: * secondary to volume overload in the context of COPD * continue current interventions (5) Benign essential hypertension: Code(s): I10 - Essential (primary) hypertension Status: Chronic Assessment and Plan: * Systolic 98-140 * On midodrine (6) DM type 2 (diabetes mellitus, type 2): Qualifiers: Diabetes mellitus usp insulin use: without predatory animal exterminator use Diabetes mellitus complication status: with kidney complications Diabetes mellitus complication detail: with chronic kidney disease Chronic kidney disease stage: stage 3 (moderate) Qualified Code(s): E11.22 - Type 2 diabetes mellitus with diabetic chronic kidney disease; N18.3 - Chronic kidney disease, stage 3 (moderate) Code(s): E11.9 - Type 2 diabetes mellitus without complications Status: Chronic Assessment and Plan: * On Accu-Cheks and sliding scale insulin per hospitalists. 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 Hemoglobin is 8.5 today Subjective Date/time seen: 04/03/22 14:35 Interval history: patient Is on a BiPAP machine. She says her breathing is better. Did remove some fluid yesterday but only about 2L. Exam Narrative: General: elderly female in NAD; back on BiPAP Heart: normal S1 and S2; no rub or gallop Lungs: coarse breath sounds with scattered rhonchi Abdomen: soft, nontender, nondistended, positive bowel sounds Extremities: 1-2+ edema Skin: no rash or subcu nodules Objective Data Vital Signs Vital Signs: Vital Signs - 24 hr 04/02/22 14:40 04/02/22 15:00 04/02/22 15:20 Temperature Pulse Rate 81 79 70 Respiratory Rate Blood Pressure 120/40 L 98/46 L 126/39 L Pulse Oximetry Oxygen Delivery Oxygen Flow Rate Fraction of Inspired Ox
--- NOTE | 2022-04-03 14:35 | PM.PNNEP ---
Progress Note: A&P Assessment and Plan (1) KALEB (acute kidney injury): Code(s): N17.9 - Acute kidney failure, unspecified Status: Acute Assessment and Plan: Acute kidney injury. evaluation to date: renal ultrasound without any acute issues UA with some white and red blood cells -- culture negative to date urine electrolytes non-prenal (but done when on diuretics) urine eosinophils negative CPK normal serologies pending Etiology of the decline in kidney function is unclear. Possibly progression of renal disease, unmasked by treatment of volume overload. she will get another dialysis treatment today. (2) Chronic kidney disease, stage IV (severe): Code(s): N18.4 - Chronic kidney disease, stage 4 (severe) Status: Chronic Assessment and Plan: baseline creatinine seems to run around 2.1 - 2.6mg/dl in the last year presumably due to HTN, DM, vascular disease and age-related change (3) Acute diastolic heart failure: Code(s): I50.31 - Acute diastolic (congestive) heart failure Status: Acute Assessment and Plan: Cardiology following She still has some swelling remove fluid with dialysis. She is not making much urine. 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 Hemoglobin is 8.5 today Subjective Date/time seen: 04/03/22 14:35 Interval history: patient Is on a BiPAP machine. She says her breathing is better. Did remove some fluid yesterday but only about 2L. Exam Narrative: General: elderly female in NAD; back on BiPAP Heart: normal S1 and S2; no rub or gallop Lungs: coarse breath sounds with scattered rhonchi Abdomen: soft, nontender, nondistended, positive bowel sounds Extremities: 1-2+ edema Skin: no rash or subcu nodules Objective Data Vital Signs Vital Signs: Vital Signs - 24 hr 04/02/22 14:40 04/02/22 15:00 04/02/22 15:20 Temperature Pulse Rate 81 79 70 Respiratory Rate Blood Pressure 120/40 L 98/46 L 126/39 L Pulse Oximetry Oxygen Delivery Oxygen Flow Rate Fraction of Inspired Oxygen 04/02/22 15:40 04/02/22 16:00 04/02/22 14:55 Temperature Pulse Rate 71 83 81 Respiratory Rate 25 H Blood Pressure 128/26 L 122/40 L Pulse Oximetry Oxygen Delivery Oxygen Flow Rate Fraction of Inspired Oxygen 04/02/22 15:02 04/02/22 15:03 04/02/22 14:55 Temperature 36.7 C Pulse Rate 83 83 Respiratory Rate 24 H 23 H 24 H Blood Pressure 120/40 L Pulse Oximetry 93 97 Oxygen Delivery BiPAP Oxygen Flow Rate Fraction of Inspired Oxygen 04/02/22 16:10 04/02/22 16:00 04/02/22 18:00 Temperature 36.9 C Pulse Rate 74 87 76 Respiratory Rate 21 H Blood Pressure 130/45 L Pulse Oximetry
[2022-04-03] MEDS: EPOETIN ALFA-EPBX 10,000 UNITS/ML VIAL 10000 UNITS IV PUSH (14:54)
--- NOTE | 2022-04-03 15:35 | PM.EVENT ---
Event Note Event Note Event Note: patient is on dialysis and tolerating it well. She was seen at 3:15 p.m.
--- NOTE | 2022-04-03 17:00 | PC.NURSE ---
@1400 to dialysis for treatment- accompanied by RT/ staff- BIPAP in use
--- NOTE | 2022-04-03 17:10 | PM.IMPN ---
Progress Note: A&P Assessment and Plan (1) Acute congestive heart failure: Code(s): I50.9 - Heart failure, unspecified Status: Acute Assessment and Plan: Continue diuresis Echo noted. does have some diastolic dysfunction. Left ventricular ejection fraction looks to be preserved. Appreciate Cardiology input and Continue hemodialysis 04/02/2022 interval history: moderately obese patient presented with shortness of breath found to have diastolic congestive heart failure and volume overload seen by Nephrology patient is being diuresed but needs dialysis to remove the excess fluid dialysis was started on 03/29, patient remains short of breath dyspnea ABG showed hypercapnia and patient was placed on BiPAP which did improve her symptoms and patient will have dialysis this morning in her room and will continue to monitor, will be seen by straightening machine feeder further recommendation to follow 04/03/2022 interval history: moderately obese patient presented with shortness of breath found to have diastolic congestive heart failure and volume overload seen by Nephrology patient is being diuresed but needs dialysis to remove the excess fluid dialysis was started on 03/29, on 04/02 patient remained short of breath dyspnea ABG showed hypercapnia and patient was placed on BiPAP which did improve her symptoms and patient had dialysis, today patient states feeling much better compared to yesterday and again today patient will have dialysis currently patient on BiPAP will continue to monitor and wean the patient off BiPAP.. (2) COPD (chronic obstructive pulmonary disease): Qualifiers: COPD type: unspecified COPD Qualified Code(s): J44.9 - Chronic obstructive pulmonary disease, unspecified Code(s): J44.9 - Chronic obstructive pulmonary disease, unspecified Status: Chronic Assessment and Plan: No wheezing this morning. Likely chronic and stable. (3) Acute respiratory failure with hypoxia: Code(s): J96.01 - Acute respiratory failure with hypoxia Status: Acute Assessment and Plan: Patient is on BiPAP this morning. Secondary to CHF exacerbation caused by worsening kidney function leading to volume overload. 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: without local company intermodal truck driver use Diabetes mellitus complication status: with kidney complications Diabetes mellitus complication detail: with chronic kidney disease Chronic kidney disease stage: stage 3 (moderate) Qualified Code(s): E11.22 - Type 2 diabetes mellitus with diabetic chronic kidney disease; N18.3 - Chronic kidney disease, stage 3 (moderate) Code(s): E11.9 - Type 2 diabetes mellitus without complications Status: Chronic Assessment and Plan: holding pioglitazone and Januvia insulin sliding scale (5) Benign essential hypertension: Code(s): I10 - Essential (primary) hypertension Status: Chronic Assessment and Plan: continue home meds continue to monitor (6) Acute kidney injury superimposed on CKD: Code(s): N17.9 - Acute kidney failure, unspecified; N18.9 - Chronic kidney disease, unspecified Status: Acute Assessment and Plan: Hemodialysis. (7) Rheumatoid arthritis: Code(s): M06.9 - Rheumatoid arthritis, unspecified Status: Acute Assessment and Plan: unchanged (8) Morbid obesity due to excess calories: Code(s): E66.01 - Morbid (severe) obesity due to excess calories Status: Chronic Assessment and Plan: lifestyle and diet modifications Subjective Date/time seen: 04/03/22 17:10 04/03/2022 interval history: moderately obese patient presented with shortness of breath found to have diastolic congestive heart failure and volume overload seen by Nephrology patient is being diuresed but needs dialysis to remove the excess fluid
[2022-04-03 18:15] LABS: Glucose Point of Care 117 mg/dl (65-105)
--- NOTE | 2022-04-03 19:20 | PC.NURSE ---
1809- returned to room post dialysis treatment-
[2022-04-03] MEDS: traZODone HCL 50 MG TABLET 100 MG PO (21:01)
[2022-04-03 23:35] LABS: ANCA Screen Negative (Negative)
[2022-04-04] VITALS (30 sets, daily range): BP systolic 110–145; BP diastolic 36–71; PULSE 70–100; RESP 12–35; TEMP 36.4–37.2; O2SAT 93–100
[2022-04-04] MEDS: ALBUTEROL SULFATE NEB 2.5 MG/3 ML INH 5 MG INHALATION ×4 (02:04→20:13)
[2022-04-04 05:00] LABS: Hematocrit 27.2 % (37.0-47.0); Hemoglobin 8.4 g/dL (12.0-15.0); Mean Corpuscular HGB Conc 30.9 g/dl (32-36); Mean Corpuscular Hemoglobin 30.4 pg (26-34); Mean Corpuscular Volume 98.6 fl (80-100); Platelet Count Result 121 k/mm3 (150-375); Red Blood Count 2.76 M/mm3 (4.2-5.4); Red Cell Distribution Width 15.4 % (11.5-14.5); White Blood Count 16.8 K/mm3 (4.5-10.0)
[2022-04-04 05:12] LABS: Albumin Level 2.4 g/dL (3.5-5.1); Anion Gap 4 mmol/L (8-16); Blood Urea Nitrogen 32 mg/dL (7-17); Calcium 7.4 mg/dL (8.4-10.2); Carbon Dioxide 31 mmol/L (22-30); Chloride 96 mmol/L (98-107); Estimated CRCL calculation 14 ml/min; Estimated Glomerular Filt Rate 13; Glucose 107 mg/dL (65-110); Phosphorus 3.3 mg/dL (2.5-4.5); Potassium 3.9 mmol/L (3.4-5.0); Sodium 131 mmol/L (137-145)
[2022-04-04] MEDS: LEVOTHYROXINE SODIUM 125 MCG TABLET PO (05:27)
[2022-04-04 07:42] LABS: Glucose Point of Care 113 mg/dl (65-105)
[2022-04-04] MEDS: CHOLECALCIFEROL 1,000 UNITS TABLET 2000 UNITS PO (08:10)
[2022-04-04] MEDS: ROSUVASTATIN 10 MG TABLET 20 MG PO (08:10)
[2022-04-04] MEDS: MIDODRINE HCL 10 MG TABLET PO ×3 (08:10→16:18)
[2022-04-04] MEDS: PYRIDOSTIGMINE BROMIDE 60 MG TABLET PO (08:10)
[2022-04-04] MEDS: VITAMIN B COMPLEX/VIT C CAPSULE 1 EACH PO (08:11)
[2022-04-04] MEDS: CALCIUM CARBONATE (OSCAL) 500 MG TABLET PO (08:11)
[2022-04-04] MEDS: LIDOCAINE 5% PATCH 1 PATCH TRANSDERM (08:11)
[2022-04-04] MEDS: BUMETANIDE INJ 1 MG/4 ML VIAL IV PUSH ×2 (08:11→16:18)
[2022-04-04] MEDS: CYANOCOBALAMIN 1,000 MCG TABLET 1000 MCG PO (08:11)
[2022-04-04] MEDS: LORATADINE 10 MG TABLET PO (08:11)
[2022-04-04] MEDS: dilTIAZem HCL CD 180 MG CAP.ER.24H PO (08:11)
[2022-04-04] MEDS: MULTIVITAMINS THERAPEUTIC TAB (*BKC) 1 TABLET PO (08:11)
[2022-04-04] MEDS: FOLIC ACID 0.4 MG TABLET 0.8 MG PO ×2 (08:11→16:19)
[2022-04-04 11:35] LABS: Glucose Point of Care 190 mg/dl (65-105)
[2022-04-04 13:57] LABS: Chloride Rand Ur 83 mmol/L (32-290); Chloride/Creatinine Rand Ur 173 (38-318); Creatinine Random Urine 48 mg/dL (20-275)
--- NOTE | 2022-04-04 15:08 | PM.IMPN ---
Progress Note: A&P Assessment and Plan (1) Acute congestive heart failure: Code(s): I50.9 - Heart failure, unspecified Status: Acute Assessment and Plan: Continue diuresis Echo noted. does have some diastolic dysfunction. Left ventricular ejection fraction looks to be preserved. Appreciate Cardiology input and Continue hemodialysis 04/02/2022 interval history: moderately obese patient presented with shortness of breath found to have diastolic congestive heart failure and volume overload seen by Nephrology patient is being diuresed but needs dialysis to remove the excess fluid dialysis was started on 03/29, patient remains short of breath dyspnea ABG showed hypercapnia and patient was placed on BiPAP which did improve her symptoms and patient will have dialysis this morning in her room and will continue to monitor, will be seen by visual education director further recommendation to follow 04/03/2022 interval history: moderately obese patient presented with shortness of breath found to have diastolic congestive heart failure and volume overload seen by Nephrology patient is being diuresed but needs dialysis to remove the excess fluid dialysis was started on 03/29, on 04/02 patient remained short of breath dyspnea ABG showed hypercapnia and patient was placed on BiPAP which did improve her symptoms and patient had dialysis, today patient states feeling much better compared to yesterday and again today patient will have dialysis currently patient on BiPAP will continue to monitor and wean the patient off BiPAP. 04/04/2022 interval history: moderately obese patient presented with shortness of breath found to have diastolic congestive heart failure and volume overload seen by Nephrology patient is being diuresed but needs dialysis to remove the excess fluid dialysis was started on 03/29, on 04/02 patient remained short of breath dyspnea ABG showed hypercapnia and patient was placed on BiPAP which did improve her symptoms and patient had dialysis and again on 04/03 , today patient states feeling much better compared to yesterday, she wore her BIPAP last night, and currently on 8L NC stats feeling better, will CPM, patient will be seen by her visual education director and further recommendation to follow. (2) COPD (chronic obstructive pulmonary disease): Qualifiers: COPD type: unspecified COPD Qualified Code(s): J44.9 - Chronic obstructive pulmonary disease, unspecified Code(s): J44.9 - Chronic obstructive pulmonary disease, unspecified Status: Chronic Assessment and Plan: No wheezing this morning. Likely chronic and stable. (3) Acute respiratory failure with hypoxia: Code(s): J96.01 - Acute respiratory failure with hypoxia Status: Acute Assessment and Plan: Patient is on BiPAP this morning. Secondary to CHF exacerbation caused by worsening kidney function leading to volume overload. 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 use: without termite exterminator helper use Diabetes mellitus complication status: with kidney complications Diabetes mellitus complication detail: with chronic kidney disease Chronic kidney disease stage: stage 3 (moderate) Qualified Code(s): E11.22 - Type 2 diabetes mellitus with diabetic chronic kidney disease; N18.3 - Chronic kidney disease, stage 3 (moderate) Code(s): E11.9 - Type 2 diabetes mellitus without complications Status: Chronic Assessment and Plan: holding pioglitazone and Januvia insulin sliding scale (5) Benign essential hypertension: Code(s): I10 - Essential (primary) hypertension Status: Chronic Assessment and Plan: continue home meds continue to monitor (6) Acute kidney injury superimposed on CKD: Code(s): N17.9 - Acute kidney failure, unspecified; N18.9 - Chronic kidney disease, unspecified Status: Acute
--- NOTE | 2022-04-04 15:16 | P.PNNP_ITS ---
Progress Note: A&P Assessment and Plan (1) KALEB (acute kidney injury): Code(s): N17.9 - Acute kidney failure, unspecified Status: Acute Assessment and Plan: * Acute kidney injury. * evaluation to date: * renal ultrasound without any acute issues * UA with some white and red blood cells -- culture negative to date * urine electrolytes non-prenal (but done when on diuretics) * urine eosinophils negative * CPK normal * serologies pending * Etiology of the decline in kidney function is unclear. Possibly progression of renal disease, unmasked by treatment of volume overload. * she will get another dialysis treatment tomorrow * remove more fluid tomorrow. (2) Chronic kidney disease, stage IV (severe): Code(s): N18.4 - Chronic kidney disease, stage 4 (severe) Status: Chronic Assessment and Plan: * baseline creatinine seems to run around 2.1 - 2.6mg/dl in the last year * presumably due to HTN, DM, vascular disease and age-related change (3) Acute diastolic heart failure: Code(s): I50.31 - Acute diastolic (congestive) heart failure Status: Acute Assessment and Plan: * Cardiology following * She still has some swelling * remove fluid with dialysis. She is not making much urine. (4) Acute hypoxemic respiratory failure: Code(s): J96.01 - Acute respiratory failure with hypoxia Status: Acute Assessment and Plan: * secondary to volume overload in the context of COPD * continue current interventions (5) Benign essential hypertension: Code(s): I10 - Essential (primary) hypertension Status: Chronic Assessment and Plan: * Systolic 104-145 * On midodrine (6) DM type 2 (diabetes mellitus, type 2): Qualifiers: Diabetes mellitus press tender long goods insulin use: without prison use Diabetes mellitus complication status: with kidney complications Diabetes mellitus complication detail: with chronic kidney disease Chronic kidney disease stage: stage 3 (moderate) Qualified Code(s): E11.22 - Type 2 diabetes mellitus with diabetic chronic kidney disease; N18.3 - Chronic kidney disease, stage 3 (mod erate) Code(s): E11.9 - Type 2 diabetes mellitus without complications Status: Chronic Assessment and Plan: * On Accu-Cheks and sliding scale insulin per hospitalists. 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 Hemoglobin is 8.4 today Subjective Date/time seen: 04/04/22 15:16 Interval history: patient is feeling better today. She is on High-flow nasal cannula now. She says her breathing is better. she is due for dialysis tomorrow Exam Narrative: General: elderly female in NAD; back on BiPAP Heart: normal S1 and S2; no rub or gallop Lungs: coarse breath sounds with scattered rhonchi Abdomen: soft, nontender, nondistended, positive bowel sounds Extremities: 1+ edema Skin: no rash and skin is now soft Objective Data Vital Signs Vital Signs: Vital Signs - 24 hr 04/03/22 15:45 04/03/22 16:15 04/03/22 16:45 Temperature Pulse Rate 76 68 71 Respiratory Rate Blood Pressure 102/43 L 112/37 L 96/48 L Pulse Oximetry
--- NOTE | 2022-04-04 15:16 | PM.PNNEP ---
Progress Note: A&P Assessment and Plan (1) KALEB (acute kidney injury): Code(s): N17.9 - Acute kidney failure, unspecified Status: Acute Assessment and Plan: Acute kidney injury. evaluation to date: renal ultrasound without any acute issues UA with some white and red blood cells -- culture negative to date urine electrolytes non-prenal (but done when on diuretics) urine eosinophils negative CPK normal serologies pending Etiology of the decline in kidney function is unclear. Possibly progression of renal disease, unmasked by treatment of volume overload. she will get another dialysis treatment tomorrow remove more fluid tomorrow. (2) Chronic kidney disease, stage IV (severe): Code(s): N18.4 - Chronic kidney disease, stage 4 (severe) Status: Chronic Assessment and Plan: baseline creatinine seems to run around 2.1 - 2.6mg/dl in the last year presumably due to HTN, DM, vascular disease and age-related change (3) Acute diastolic heart failure: Code(s): I50.31 - Acute diastolic (congestive) heart failure Status: Acute Assessment and Plan: Cardiology following She still has some swelling remove fluid with dialysis. She is not making much urine. (4) Acute hypoxemic respiratory failure: Code(s): J96.01 - Acute respiratory failure with hypoxia Status: Acute Assessment and Plan: secondary to volume overload in the context of COPD continue current interventions (5) Benign essential hypertension: Code(s): I10 - Essential (primary) hypertension Status: Chronic Assessment and Plan: Systolic 104-145 On midodrine (6) DM type 2 (diabetes mellitus, type 2): Qualifiers: Diabetes mellitus fpc insulin use: without fpc use Diabetes mellitus complication status: with kidney complications Diabetes mellitus complication detail: with chronic kidney disease Chronic kidney disease stage: stage 3 (moderate) Qualified Code(s): E11.22 - Type 2 diabetes mellitus with diabetic chronic kidney disease; N18.3 - Chronic kidney disease, stage 3 (moderate) Code(s): E11.9 - Type 2 diabetes mellitus without complications Status: Chronic Assessment and Plan: On Accu-Cheks and sliding scale insulin per hospitalists. 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 Hemoglobin is 8.4 today Subjective Date/time seen: 04/04/22 15:16 Interval history: patient is feeling better today. She is on High-flow nasal cannula now. She says her breathing is better. she is due for dialysis tomorrow Exam Narrative: General: elderly female in NAD; back on BiPAP Heart: normal S1 and S2; no rub or gallop Lungs: coarse breath sounds with scattered rhonchi Abdomen: soft, nontender, nondistended, positive bowel sounds Extremities: 1+ edema Skin: no rash and skin is now soft Objective Data Vital Signs Vital Signs: Vital Signs - 24 hr 04/03/22 15:45 04/03/22 16:15 04/03/22 16:45 Temperature Pulse Rate 76 68 71 Respiratory Rate Blood Pressure 102/43 L 112/37 L 96/48 L Pulse Oximetry Oxygen Delivery Oxygen Flow Rate Fraction of Inspired Oxygen 04/03/22 17:15 04/03/22 17:35 04/03/22 17:45 Temperature 36.6 C Pulse Rate 75 77 67 Respiratory Rate 16 Blood Pressure 101/28 L 119/50 L 120/53 L Pulse Oximetry Oxygen Delivery Oxygen Flow Rate Fraction of Inspired Oxygen 04/03/22 18:00 04/03/22 18:00 04/03/22 18:10 Temperature 36.6 C Pulse Rate 64 65 64 Respiratory Rate 24 H 24 H Blood Pressure 133/40 L Pulse Oximetry 94 94 Oxygen Delivery High Flow Nasal Cannula Oxygen Flow Rate 15 Fraction of Inspired Oxygen 04/03/22 20:19 04/03/22 20:24 04/03/22 20:00 Temperature
[2022-04-04 16:34] LABS: Glucose Point of Care 149 mg/dl (65-105)
[2022-04-04 19:42] LABS: Glucose Point of Care 170 mg/dl (65-105)
[2022-04-04] MEDS: traZODone HCL 50 MG TABLET 100 MG PO (20:03)
[2022-04-04 23:41] LABS: Glucose Point of Care 116 mg/dl (65-105)
[2022-04-05] VITALS (32 sets, daily range): BP systolic 105–142; BP diastolic 32–95; PULSE 73–102; RESP 16–24; TEMP 36.3–37; O2SAT 95–100
[2022-04-05] MEDS: ALBUTEROL SULFATE NEB 2.5 MG/3 ML INH 5 MG INHALATION ×2 (02:36→20:05)
[2022-04-05 05:24] LABS: Hematocrit 28.8 % (37.0-47.0); Hemoglobin 8.8 g/dL (12.0-15.0); Mean Corpuscular HGB Conc 30.6 g/dl (32-36); Mean Corpuscular Hemoglobin 30.7 pg (26-34); Mean Corpuscular Volume 100.3 fl (80-100); Mean Platelet Volume 9.6 fl (7.4-10.4); Platelet Count Result 127 k/mm3 (150-375); Red Blood Count 2.87 M/mm3 (4.2-5.4); Red Cell Distribution Width 15.4 % (11.5-14.5); White Blood Count 15.5 K/mm3 (4.5-10.0)
[2022-04-05 05:33] LABS: Albumin Level 2.4 g/dL (3.5-5.1); Anion Gap 4 mmol/L (8-16); Blood Urea Nitrogen 41 mg/dL (7-17); Calcium 7.5 mg/dL (8.4-10.2); Carbon Dioxide 29 mmol/L (22-30); Chloride 96 mmol/L (98-107); Estimated CRCL calculation 12 ml/min; Estimated Glomerular Filt Rate 10; Glucose 94 mg/dL (65-110); Phosphorus 3.5 mg/dL (2.5-4.5); Potassium 3.8 mmol/L (3.4-5.0); Sodium 129 mmol/L (137-145)
[2022-04-05] MEDS: LEVOTHYROXINE SODIUM 125 MCG TABLET PO (05:38)
[2022-04-05 07:44] LABS: Glucose Point of Care 96 mg/dl (65-105)
[2022-04-05] MEDS: CHOLECALCIFEROL 1,000 UNITS TABLET 2000 UNITS PO (09:08)
[2022-04-05] MEDS: MIDODRINE HCL 10 MG TABLET PO ×2 (09:08→17:47)
[2022-04-05] MEDS: ROSUVASTATIN 10 MG TABLET 20 MG PO (09:08)
[2022-04-05] MEDS: dilTIAZem HCL CD 180 MG CAP.ER.24H PO (09:09)
[2022-04-05] MEDS: CYANOCOBALAMIN 1,000 MCG TABLET 1000 MCG PO (09:10)
[2022-04-05] MEDS: FOLIC ACID 0.4 MG TABLET 0.8 MG PO ×2 (09:10→17:46)
[2022-04-05] MEDS: MULTIVITAMINS THERAPEUTIC TAB (*BKC) 1 TABLET PO (09:10)
[2022-04-05] MEDS: PYRIDOSTIGMINE BROMIDE 60 MG TABLET PO (09:11)
[2022-04-05] MEDS: BUMETANIDE INJ 1 MG/4 ML VIAL IV PUSH ×2 (09:12→17:46)
[2022-04-05] MEDS: CALCIUM CARBONATE (OSCAL) 500 MG TABLET PO (09:12)
[2022-04-05] MEDS: VITAMIN B COMPLEX/VIT C CAPSULE 1 EACH PO (09:12)
--- NOTE | 2022-04-05 10:32 | P.PNNP_ITS ---
Progress Note: A&P Assessment and Plan (1) KALEB (acute kidney injury): Code(s): N17.9 - Acute kidney failure, unspecified Status: Acute Assessment and Plan: * Acute kidney injury. * evaluation to date: * renal ultrasound without any acute issues * UA with some white and red blood cells -- culture negative to date * urine electrolytes non-prenal (but done when on diuretics) * urine eosinophils negative * CPK normal * serologies pending * Etiology of the decline in kidney function is unclear. Possibly progression of renal disease, unmasked by treatment of volume overload. * Due for dialysis today. * remove more fluid as tolerated (2) Chronic kidney disease, stage IV (severe): Code(s): N18.4 - Chronic kidney disease, stage 4 (severe) Status: Chronic Assessment and Plan: * baseline creatinine seems to run around 2.1 - 2.6mg/dl in the last year * presumably due to HTN, DM, vascular disease and age-related change (3) Acute diastolic heart failure: Code(s): I50.31 - Acute diastolic (congestive) heart failure Status: Acute Assessment and Plan: * Cardiology following * She still has some swelling * remove fluid with dialysis. She is not making much urine. (4) Acute hypoxemic respiratory failure: Code(s): J96.01 - Acute respiratory failure with hypoxia Status: Acute Assessment and Plan: * Continues to remove fluid. (5) Benign essential hypertension: Code(s): I10 - Essential (primary) hypertension Status: Chronic Assessment and Plan: * Systolic 104-145 * On midodrine * Possibly we can wean the midodrine once we do not have to work so hard to get fluid off. (6) DM type 2 (diabetes mellitus, type 2): Qualifiers: Diabetes mellitus exterminator termite insulin use: without long-term use Diabetes mellitus complication status: with kidney complications Diabetes mellitus complication detail: with chronic kidney disease Chronic kidney disease stage: stage 3 (moderate) Qualified Code(s): E11.22 - Type 2 diabetes mellitus with diabetic chronic kidney disease; N18.3 - Chronic kidney disease, stage 3 (moderate) Code(s): E11.9 - Type 2 diabetes mellitus without complications Status: Chronic Assessment and Plan: * On Accu-Cheks and sliding scale insulin per hospitalists. 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 Hemoglobin is 8.8 today Subjective Date/time seen: 04/05/22 10:32 Interval history: patient is feeling better today. He is lying flat in bed. She has some conversational dyspnea. She has not been up in a chair. Overall, she says. her breathing is better. she is due for dialysis today Exam Narrative: General: elderly female in NAD; back on BiPAP Heart: normal S1 and S2; no rub or gallop Lungs: coarse breath sounds with scattered rhonchi. Overall better air movem ent. Abdomen: soft, nontender, nondistended, positive bowel sounds Extremities: 1+ edema Skin: no rash Objective Data Vital Signs Vital Signs: Vital Signs - 24 hr 04/04/22 12:04 04/04/22 11:00 04/04/22 12:00 Temperature 36.7 C Pulse Rate 89 Respiratory Rate 23 H
--- NOTE | 2022-04-05 10:32 | PM.PNNEP ---
Progress Note: A&P Assessment and Plan (1) KALEB (acute kidney injury): Code(s): N17.9 - Acute kidney failure, unspecified Status: Acute Assessment and Plan: Acute kidney injury. evaluation to date: renal ultrasound without any acute issues UA with some white and red blood cells -- culture negative to date urine electrolytes non-prenal (but done when on diuretics) urine eosinophils negative CPK normal serologies pending Etiology of the decline in kidney function is unclear. Possibly progression of renal disease, unmasked by treatment of volume overload. Due for dialysis today. remove more fluid as tolerated (2) Chronic kidney disease, stage IV (severe): Code(s): N18.4 - Chronic kidney disease, stage 4 (severe) Status: Chronic Assessment and Plan: baseline creatinine seems to run around 2.1 - 2.6mg/dl in the last year presumably due to HTN, DM, vascular disease and age-related change (3) Acute diastolic heart failure: Code(s): I50.31 - Acute diastolic (congestive) heart failure Status: Acute Assessment and Plan: Cardiology following She still has some swelling remove fluid with dialysis. She is not making much urine. (4) Acute hypoxemic respiratory failure: Code(s): J96.01 - Acute respiratory failure with hypoxia Status: Acute Assessment and Plan: Continues to remove fluid. (5) Benign essential hypertension: Code(s): I10 - Essential (primary) hypertension Status: Chronic Assessment and Plan: Systolic 104-145 On midodrine Possibly we can wean the midodrine once we do not have to work so hard to get fluid off. (6) DM type 2 (diabetes mellitus, type 2): Qualifiers: Diabetes mellitus nursing home insulin use: without oysterman use Diabetes mellitus complication status: with kidney complications Diabetes mellitus complication detail: with chronic kidney disease Chronic kidney disease stage: stage 3 (moderate) Qualified Code(s): E11.22 - Type 2 diabetes mellitus with diabetic chronic kidney disease; N18.3 - Chronic kidney disease, stage 3 (moderate) Code(s): E11.9 - Type 2 diabetes mellitus without complications Status: Chronic Assessment and Plan: On Accu-Cheks and sliding scale insulin per hospitalists. 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 Hemoglobin is 8.8 today Subjective Date/time seen: 04/05/22 10:32 Interval history: patient is feeling better today. He is lying flat in bed. She has some conversational dyspnea. She has not been up in a chair. Overall, she says. her breathing is better. she is due for dialysis today Exam Narrative: General: elderly female in NAD; back on BiPAP Heart: normal S1 and S2; no rub or gallop Lungs: coarse breath sounds with scattered rhonchi. Overall better air movement. Abdomen: soft, nontender, nondistended, positive bowel sounds Extremities: 1+ edema Skin: no rash Objective Data Vital Signs Vital Signs: Vital Signs - 24 hr 04/04/22 12:04 04/04/22 11:00 04/04/22 12:00 Temperature 36.7 C Pulse Rate 89 Respiratory Rate 23 H Blood Pressure 145/36 H Pulse Oximetry 96 98 97 Oxygen Delivery High Flow Nasal Cannula High Flow Nasal Cannula Oxygen Flow Rate 10 8 Fraction of Inspired Oxygen 04/04/22 12:00 04/04/22 14:00 04/04/22 15:02 Temperature Pulse Rate 70 92 81 Respiratory Rate 20 Blood Pressure Pulse Oximetry Oxygen Delivery Oxygen Flow Rate Fraction of Inspired Oxygen 04/04/22 15:11 04/04/22 16:00 04/04/22 16:00 Temperature 37.2 C Pulse Rate 84 81 77 Respiratory Rate 22 H 22 H Blood Pressure 117/71 Pulse Oximetry 93 Oxygen Delivery Oxygen Flow Rate Fraction of Inspired Oxygen
[2022-04-05 11:57] LABS: Glucose Point of Care 122 mg/dl (65-105)
[2022-04-05] MEDS: SODIUM CHLORIDE 0.9% IV 1,000 ML 1000 ML (13:45)
--- NOTE | 2022-04-05 14:36 | PM.IMPN ---
Progress Note: A&P Assessment and Plan (1) Acute congestive heart failure: Code(s): I50.9 - Heart failure, unspecified Status: Acute Assessment and Plan: Continue diuresis Echo noted. does have some diastolic dysfunction. Left ventricular ejection fraction looks to be preserved. Appreciate Cardiology input and Continue hemodialysis 04/02/2022 interval history: moderately obese patient presented with shortness of breath found to have diastolic congestive heart failure and volume overload seen by Nephrology patient is being diuresed but needs dialysis to remove the excess fluid dialysis was started on 03/29, patient remains short of breath dyspnea ABG showed hypercapnia and patient was placed on BiPAP which did improve her symptoms and patient will have dialysis this morning in her room and will continue to monitor, will be seen by inspector quality assurance further recommendation to follow 04/03/2022 interval history: moderately obese patient presented with shortness of breath found to have diastolic congestive heart failure and volume overload seen by Nephrology patient is being diuresed but needs dialysis to remove the excess fluid dialysis was started on 03/29, on 04/02 patient remained short of breath dyspnea ABG showed hypercapnia and patient was placed on BiPAP which did improve her symptoms and patient had dialysis, today patient states feeling much better compared to yesterday and again today patient will have dialysis currently patient on BiPAP will continue to monitor and wean the patient off BiPAP. 04/04/2022 interval history: moderately obese patient presented with shortness of breath found to have diastolic congestive heart failure and volume overload seen by Nephrology patient is being diuresed but needs dialysis to remove the excess fluid dialysis was started on 03/29, on 04/02 patient remained short of breath dyspnea ABG showed hypercapnia and patient was placed on BiPAP which did improve her symptoms and patient had dialysis and again on 04/03 , today patient states feeling much better compared to yesterday, she wore her BIPAP last night, and currently on 8L NC stats feeling better, will CPM, patient will be seen by her inspector quality assurance and further recommendation to follow. 04/05/2022 interval history: moderately obese patient presented with shortness of breath found to have diastolic congestive heart failure and volume overload seen by Nephrology patient is being diuresed but needs dialysis to remove the excess fluid dialysis was started on 03/29, on 04/02 patient remained short of breath dyspnea ABG showed hypercapnia and patient was placed on BiPAP which did improve her symptoms and patient had dialysis and again on 04/03, today patient states feeling much better compared to yesterday, she wore her BIPAP last night, and currently on 6L NC compare to 8L NC on 04/04, stats feeling better, will CPM, patient was seen by her inspector quality assurance and will have a hemodialysis today, will continue to wean patient off oxygen, and further recommendation to follow. (2) COPD (chronic obstructive pulmonary disease): Qualifiers: COPD type: unspecified COPD Qualified Code(s): J44.9 - Chronic obstructive pulmonary disease, unspecified Code(s): J44.9 - Chronic obstructive pulmonary disease, unspecified Status: Chronic Assessment and Plan: No wheezing this morning. Likely chronic and stable. (3) Acute respiratory failure with hypoxia: Code(s): J96.01 - Acute respiratory failure with hypoxia Status: Acute Assessment and Plan: Patient is on BiPAP this morning. Secondary to CHF exacerbation caused by worsening kidney function leading to volume overload. Will monitor with improving volume status with hemodialysis (4) DM type 2 (diabetes mellitus, type 2): Qualifiers: Chronic kidney disease stage: stage 3 (moderate) Diabetes mellitus complication detail: with chronic kidney disease Shreyas butt
[2022-04-05] MEDS: EPOETIN ALFA-EPBX 10,000 UNITS/ML VIAL 10000 UNITS IV PUSH (15:44)
[2022-04-05 17:49] LABS: Glucose Point of Care 117 mg/dl (65-105)
[2022-04-05 19:30] LABS: Glucose Point of Care 219 mg/dl (65-105)
[2022-04-05] MEDS: traZODone HCL 50 MG TABLET 100 MG PO (20:31)
[2022-04-06] VITALS (24 sets, daily range): BP systolic 116–154; BP diastolic 30–50; PULSE 79–95; RESP 16–28; TEMP 36.4–37.1; O2SAT 94–98; BMI 10.0
[2022-04-06] MEDS: ALBUTEROL SULFATE NEB 2.5 MG/3 ML INH 5 MG INHALATION ×4 (02:32→20:17)
[2022-04-06 05:13] LABS: Hematocrit 28.1 % (37.0-47.0); Hemoglobin 8.8 g/dL (12.0-15.0); Mean Corpuscular HGB Conc 31.3 g/dl (32-36); Mean Corpuscular Hemoglobin 30.8 pg (26-34); Mean Corpuscular Volume 98.3 fl (80-100); Mean Platelet Volume 9.9 fl (7.4-10.4); Platelet Count Result 123 k/mm3 (150-375); Red Blood Count 2.86 M/mm3 (4.2-5.4); Red Cell Distribution Width 15.2 % (11.5-14.5); White Blood Count 15.6 K/mm3 (4.5-10.0)
[2022-04-06 05:30] LABS: Albumin Level 2.5 g/dL (3.5-5.1); Anion Gap 1 mmol/L (8-16); Blood Urea Nitrogen 22 mg/dL (7-17); Calcium 7.4 mg/dL (8.4-10.2); Carbon Dioxide 36 mmol/L (22-30); Chloride 97 mmol/L (98-107); Estimated CRCL calculation 16 ml/min; Estimated Glomerular Filt Rate 16; Glucose 148 mg/dL (65-110); Phosphorus 2.5 mg/dL (2.5-4.5); Potassium 3.5 mmol/L (3.4-5.0); Sodium 134 mmol/L (137-145)
[2022-04-06] MEDS: LEVOTHYROXINE SODIUM 125 MCG TABLET PO (06:30)
[2022-04-06 07:39] LABS: Glucose Point of Care 157 mg/dl (65-105)
[2022-04-06] MEDS: BUMETANIDE INJ 1 MG/4 ML VIAL IV PUSH ×2 (08:43→16:29)
[2022-04-06] MEDS: MIDODRINE HCL 10 MG TABLET PO (08:43)
[2022-04-06] MEDS: CHOLECALCIFEROL 1,000 UNITS TABLET 2000 UNITS PO (08:44)
[2022-04-06] MEDS: FOLIC ACID 0.4 MG TABLET 0.8 MG PO ×2 (08:44→16:29)
[2022-04-06] MEDS: dilTIAZem HCL CD 180 MG CAP.ER.24H PO (08:44)
[2022-04-06] MEDS: VITAMIN B COMPLEX/VIT C CAPSULE 1 EACH PO (08:44)
[2022-04-06] MEDS: PYRIDOSTIGMINE BROMIDE 60 MG TABLET PO (08:44)
[2022-04-06] MEDS: MULTIVITAMINS THERAPEUTIC TAB (*BKC) 1 TABLET PO (08:45)
[2022-04-06] MEDS: CALCIUM CARBONATE (OSCAL) 500 MG TABLET PO (08:45)
[2022-04-06] MEDS: LIDOCAINE 5% PATCH 1 PATCH TRANSDERM (08:46)
[2022-04-06] MEDS: CYANOCOBALAMIN 1,000 MCG TABLET 1000 MCG PO (08:46)
[2022-04-06] MEDS: ROSUVASTATIN 10 MG TABLET 20 MG PO (08:47)
--- NOTE | 2022-04-06 11:12 | P.PNNP_ITS ---
Progress Note: A&P Assessment and Plan (1) KALEB (acute kidney injury): Code(s): N17.9 - Acute kidney failure, unspecified Status: Acute Assessment and Plan: * Acute kidney injury. * evaluation to date: * renal ultrasound without any acute issues * UA with some white and red blood cells -- culture negative to date * urine electrolytes non-prenal (but done when on diuretics) * urine eosinophils negative * CPK normal * serologies pending * Etiology of the decline in kidney function is unclear. Possibly progression of renal disease, unmasked by treatment of volume overload. * She had dialysis yesterday. Next treatment on Thursday. (2) Chronic kidney disease, stage IV (severe): Code(s): N18.4 - Chronic kidney disease, stage 4 (severe) Status: Chronic Assessment and Plan: * baseline creatinine seems to run around 2.1 - 2.6mg/dl in the last year * presumably due to HTN, DM, vascular disease and age-related change (3) Acute diastolic heart failure: Code(s): I50.31 - Acute diastolic (congestive) heart failure Status: Acute Assessment and Plan: * Cardiology following * Gradually improving with fluid removal. (4) Acute hypoxemic respiratory failure: Code(s): J96.01 - Acute respiratory failure with hypoxia Status: Acute Assessment and Plan: * Continues to remove fluid. (5) Benign essential hypertension: Code(s): I10 - Essential (primary) hypertension Status: Chronic Assessment and Plan: * Systolic 105-154 * On midodrine * Will decrease midodrine to 5 with the intent of stopping midodrine except for using with dialysis if needed. (6) DM type 2 (diabetes mellitus, type 2): Qualifiers: Diabetes mellitus longterm insulin use: without longterm use Diabetes mellitus complication status: with kidney complications Diabetes mellitus complication detail: with chronic kidney disease Chronic kidney disease stage: stage 3 (moderate) Qualified Code(s): E11.22 - Type 2 diabetes mellitus with diabetic chronic kidney disease; N18.3 - Chronic kidney disease, stage 3 (moderate) Code(s): E11.9 - Type 2 diabetes mellitus without complications Status: Chronic Assessment and Plan: * On Accu-Cheks and sliding scale insulin per hospitalists. 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 Hemoglobin is 8.8 today Subjective Date/time seen: 04/06/22 11:12 Interval history: patient is feeling better today. She had dialysis yesterday and they removed 4L. Breathing is doing pretty well. Lying flat in bed down to2L of oxygen. Exam Narrative: General: elderly female in NAD; back on BiPAP Heart: normal S1 and S2; no rub or gallop Lungs: Minimally coarse breath sounds at the bases. Abdomen: soft, nontender, nondistended, positive bowel sounds Extremities: Trace to 1+ edema Skin: no rash. Wrinkles are reappearing on her legs Objective Data Vital Signs Vital Signs: Vital Signs - 24 hr 04/05/22 11:57 04/05/22 12:00 04/05/22 12:00 Temperature 36.3 C L Pulse Rate 84 94 82 Respiratory Rate 22 H Blood Pressure 142/45 H Pulse Oximetry 96 95 Oxy
--- NOTE | 2022-04-06 11:12 | PM.PNNEP ---
Progress Note: A&P Assessment and Plan (1) KALEB (acute kidney injury): Code(s): N17.9 - Acute kidney failure, unspecified Status: Acute Assessment and Plan: Acute kidney injury. evaluation to date: renal ultrasound without any acute issues UA with some white and red blood cells -- culture negative to date urine electrolytes non-prenal (but done when on diuretics) urine eosinophils negative CPK normal serologies pending Etiology of the decline in kidney function is unclear. Possibly progression of renal disease, unmasked by treatment of volume overload. She had dialysis yesterday. Next treatment on Thursday. (2) Chronic kidney disease, stage IV (severe): Code(s): N18.4 - Chronic kidney disease, stage 4 (severe) Status: Chronic Assessment and Plan: baseline creatinine seems to run around 2.1 - 2.6mg/dl in the last year presumably due to HTN, DM, vascular disease and age-related change (3) Acute diastolic heart failure: Code(s): I50.31 - Acute diastolic (congestive) heart failure Status: Acute Assessment and Plan: Cardiology following Gradually improving with fluid removal. (4) Acute hypoxemic respiratory failure: Code(s): J96.01 - Acute respiratory failure with hypoxia Status: Acute Assessment and Plan: Continues to remove fluid. (5) Benign essential hypertension: Code(s): I10 - Essential (primary) hypertension Status: Chronic Assessment and Plan: Systolic 105-154 On midodrine Will decrease midodrine to 5 with the intent of stopping midodrine except for using with dialysis if needed. (6) DM type 2 (diabetes mellitus, type 2): Qualifiers: Diabetes mellitus long-term insulin use: without long-term use Diabetes mellitus complication status: with kidney complications Diabetes mellitus complication detail: with chronic kidney disease Chronic kidney disease stage: stage 3 (moderate) Qualified Code(s): E11.22 - Type 2 diabetes mellitus with diabetic chronic kidney disease; N18.3 - Chronic kidney disease, stage 3 (moderate) Code(s): E11.9 - Type 2 diabetes mellitus without complications Status: Chronic Assessment and Plan: On Accu-Cheks and sliding scale insulin per hospitalists. 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 Hemoglobin is 8.8 today Subjective Date/time seen: 04/06/22 11:12 Interval history: patient is feeling better today. She had dialysis yesterday and they removed 4L. Breathing is doing pretty well. Lying flat in bed down to2L of oxygen. Exam Narrative: General: elderly female in NAD; back on BiPAP Heart: normal S1 and S2; no rub or gallop Lungs: Minimally coarse breath sounds at the bases. Abdomen: soft, nontender, nondistended, positive bowel sounds Extremities: Trace to 1+ edema Skin: no rash. Wrinkles are reappearing on her legs Objective Data Vital Signs Vital Signs: Vital Signs - 24 hr 04/05/22 11:57 04/05/22 12:00 04/05/22 12:00 Temperature 36.3 C L Pulse Rate 84 94 82 Respiratory Rate 22 H Blood Pressure 142/45 H Pulse Oximetry 96 95 Oxygen Delivery High Flow Nasal Cannula Oxygen Flow Rate 6 04/05/22 13:40 04/05/22 13:40 04/05/22 13:55 Temperature 36.7 C Pulse Rate 82 78 Respiratory Rate 18 Blood Pressure 132/49 L 137/50 L Pulse Oximetry Oxygen Delivery Oxygen Flow Rate 6 04/05/22 14:45 04/05/22 15:45 04/05/22 17:35 Temperature 36.6 C Pulse Rate 79 73 96 Respiratory Rate 16 Blood Pressure 131/51 L 125/46 L 121/37 L Pulse Oximetry Oxygen Delivery Oxygen Flow Rate 04/05/22 14:00 04/05/22 14:15 04/05/22 15:15 Temperature Pulse Rate 81 80 82 Respiratory Rate Blood Pressure 117/55 L 114/49 L Pulse Oximet
[2022-04-06 12:16] LABS: Glucose Point of Care 195 mg/dl (65-105)
[2022-04-06] MEDS: MIDODRINE HCL 2.5 MG TABLET 5 MG PO ×2 (12:40→16:29)
--- NOTE | 2022-04-06 13:05 | PM.IMPN ---
Progress Note: A&P Assessment and Plan (1) Acute congestive heart failure: Code(s): I50.9 - Heart failure, unspecified Status: Acute Assessment and Plan: Continue diuresis Echo noted. does have some diastolic dysfunction. Left ventricular ejection fraction looks to be preserved. Appreciate Cardiology input and Continue hemodialysis 04/02/2022 interval history: moderately obese patient presented with shortness of breath found to have diastolic congestive heart failure and volume overload seen by Nephrology patient is being diuresed but needs dialysis to remove the excess fluid dialysis was started on 03/29, patient remains short of breath dyspnea ABG showed hypercapnia and patient was placed on BiPAP which did improve her symptoms and patient will have dialysis this morning in her room and will continue to monitor, will be seen by arc welder apprentice further recommendation to follow 04/03/2022 interval history: moderately obese patient presented with shortness of breath found to have diastolic congestive heart failure and volume overload seen by Nephrology patient is being diuresed but needs dialysis to remove the excess fluid dialysis was started on 03/29, on 04/02 patient remained short of breath dyspnea ABG showed hypercapnia and patient was placed on BiPAP which did improve her symptoms and patient had dialysis, today patient states feeling much better compared to yesterday and again today patient will have dialysis currently patient on BiPAP will continue to monitor and wean the patient off BiPAP. 04/04/2022 interval history: moderately obese patient presented with shortness of breath found to have diastolic congestive heart failure and volume overload seen by Nephrology patient is being diuresed but needs dialysis to remove the excess fluid dialysis was started on 03/29, on 04/02 patient remained short of breath dyspnea ABG showed hypercapnia and patient was placed on BiPAP which did improve her symptoms and patient had dialysis and again on 04/03 , today patient states feeling much better compared to yesterday, she wore her BIPAP last night, and currently on 8L NC stats feeling better, will CPM, patient will be seen by her arc welder apprentice and further recommendation to follow. 04/05/2022 interval history: moderately obese patient presented with shortness of breath found to have diastolic congestive heart failure and volume overload seen by Nephrology patient is being diuresed but needs dialysis to remove the excess fluid dialysis was started on 03/29, on 04/02 patient remained short of breath dyspnea ABG showed hypercapnia and patient was placed on BiPAP which did improve her symptoms and patient had dialysis and again on 04/03, today patient states feeling much better compared to yesterday, she wore her BIPAP last night, and currently on 6L NC compare to 8L NC on 04/04, stats feeling better, will CPM, patient was seen by her arc welder apprentice and will have a hemodialysis today, will continue to wean patient off oxygen, and further recommendation to follow. 04/06/2022 interval history: moderately obese patient presented with shortness of breath found to have diastolic congestive heart failure and volume overload seen by Nephrology patient is being diuresed but needs dialysis to remove the excess fluid dialysis was started on 03/29, on 04/02 patient remained short of breath dyspnea ABG showed hypercapnia and patient was placed on BiPAP which did improve her symptoms and patient had dialysis and again on 04/03, and on 04/05, patient states feeling much better compared to yesterday, she did leyva her BIPAP last night, and currently on 2-4 L NC compare to 8L NC on 04/04, stats feeling better, will CPM, patient was seen by her arc welder apprentice and will not have a hemodialysis today as patient has hypotensive and midodrine is resume and 5 mg t.i.d., will continue to wean patient off oxygen, patient will benefit going to rehab and further recommendation to follow.
--- NOTE | 2022-04-06 14:38 | PCPTNOTE ---
Attempted physical therapy initial evaluation, pt declined at this time. States she will try in the morning. Will continue to follow.
--- NOTE | 2022-04-06 15:31 | PC.NURSE ---
This patient, Cristina Bravo, was received from [[facility] ] on 04/06/22 at 1531. Patient/family oriented to unit policies and routines
[2022-04-06 16:08] LABS: Glucose Point of Care 199 mg/dl (65-105)
[2022-04-06] MEDS: LOPERAMIDE HCL 2 MG CAPSULE PO (16:29)
[2022-04-06] MEDS: ALBUTEROL SULFATE NEB 2.5 MG/0.5 ML INH 5 MG (20:17)
[2022-04-06] MEDS: traZODone HCL 50 MG TABLET 100 MG PO (20:23)
[2022-04-06 20:56] LABS: Glucose Point of Care 164 mg/dl (65-105)
[2022-04-07] VITALS (15 sets, daily range): BP systolic 105–142; BP diastolic 43–59; PULSE 80–104; RESP 16–24; TEMP 36.1–36.6; O2SAT 89–98
--- NOTE | 2022-04-07 01:50 | PCRCNOTE ---
Pt can not tolerate BIPAP. RT and RN explained to pt the importance of wearing BIPAP while sleeping. Pt stated she can breathe fine with her 02 at night. After further explanation of what benefits the pt would get from wearing BIPAP, the pt reluctantly agreed. RT placed pt on BIPAP at 2200 on 04/06. Pt could not tolerate any further around 0000 on 04/07 and RN removed BIPAP and replaced with 2L NC.
[2022-04-07] MEDS: ALBUTEROL SULFATE NEB 2.5 MG/0.5 ML INH 5 MG (01:55)
[2022-04-07 06:09] LABS: Hematocrit 28.1 % (37.0-47.0); Hemoglobin 8.5 g/dL (12.0-15.0); Mean Corpuscular HGB Conc 30.2 g/dl (32-36); Mean Corpuscular Hemoglobin 30.2 pg (26-34); Mean Platelet Volume 9.9 fl (7.4-10.4); Platelet Count Result 131 k/mm3 (150-375); Red Blood Count 2.81 M/mm3 (4.2-5.4); Red Cell Distribution Width 15.6 % (11.5-14.5); White Blood Count 14.5 K/mm3 (4.5-10.0)
[2022-04-07] MEDS: LEVOTHYROXINE SODIUM 125 MCG TABLET PO (06:13)
[2022-04-07 06:23] LABS: Albumin Level 2.4 g/dL (3.5-5.1); Anion Gap 3 mmol/L (8-16); Blood Urea Nitrogen 29 mg/dL (7-17); Calcium 7.5 mg/dL (8.4-10.2); Carbon Dioxide 33 mmol/L (22-30); Chloride 94 mmol/L (98-107); Estimated CRCL calculation 12 ml/min; Estimated Glomerular Filt Rate 11; Glucose 138 mg/dL (65-110); Potassium 3.7 mmol/L (3.4-5.0); Sodium 130 mmol/L (137-145)
[2022-04-07] MEDS: ALBUTEROL SULFATE NEB 2.5 MG/3 ML INH 5 MG INHALATION ×3 (08:06→21:07)
[2022-04-07 08:08] LABS: Glucose Point of Care 143 mg/dl (65-105)
[2022-04-07] MEDS: MIDODRINE HCL 2.5 MG TABLET 5 MG PO ×3 (08:35→16:48)
[2022-04-07] MEDS: BUMETANIDE INJ 1 MG/4 ML VIAL IV PUSH ×2 (08:35→16:48)
[2022-04-07] MEDS: MULTIVITAMINS THERAPEUTIC TAB (*BKC) 1 TABLET PO (08:35)
[2022-04-07] MEDS: ROSUVASTATIN 10 MG TABLET 20 MG PO (08:35)
[2022-04-07] MEDS: CHOLECALCIFEROL 1,000 UNITS TABLET 2000 UNITS PO (08:35)
[2022-04-07] MEDS: LORATADINE 10 MG TABLET PO (08:36)
[2022-04-07] MEDS: FOLIC ACID 0.4 MG TABLET 0.8 MG PO ×2 (08:36→16:48)
[2022-04-07] MEDS: CYANOCOBALAMIN 1,000 MCG TABLET 1000 MCG PO (08:36)
[2022-04-07] MEDS: CALCIUM CARBONATE (OSCAL) 500 MG TABLET PO (08:36)
[2022-04-07] MEDS: dilTIAZem HCL CD 180 MG CAP.ER.24H PO (08:36)
[2022-04-07] MEDS: PYRIDOSTIGMINE BROMIDE 60 MG TABLET PO (08:36)
[2022-04-07] MEDS: LIDOCAINE 5% PATCH 1 PATCH TRANSDERM (08:37)
[2022-04-07] MEDS: VITAMIN B COMPLEX/VIT C CAPSULE 1 EACH PO (08:37)
[2022-04-07 11:29] LABS: Glucose Point of Care 157 mg/dl (65-105)
--- NOTE | 2022-04-07 11:33 | PCPTNOTE ---
Attempted PT evaluation, Patient became tearful and stated I just know how dizzy I get when I sit up. Patient refused to participate in physical therapy, but requested therapist to come back this afternoon. RN aware. Will Follow.
--- NOTE | 2022-04-07 14:26 | P.PNNP_ITS ---
Progress Note: A&P Assessment and Plan (1) KALEB (acute kidney injury): Code(s): N17.9 - Acute kidney failure, unspecified Status: Acute Assessment and Plan: * etiology not entirely clear * evaluation to date: * renal ultrasound without any acute issues * UA with some white and red blood cells -- culture negative to date * urine electrolytes non-prenal (but done when on diuretics) * urine eosinophils negative * CPK normal * serologies noted - normal C3, C4, ANCA, antiGBM-Ab; positive TEOFILO but negative dsDNA-Ab * possibly progression of renal disease - unmasked by treatment of volume overload(?) * plan HD tomorrow * suspect with need HD on discharge as well (2) Chronic kidney disease, stage IV (severe): Code(s): N18.4 - Chronic kidney disease, stage 4 (severe) Status: Chronic Assessment and Plan: * baseline creatinine seems to run around 2.1 - 2.6mg/dl in the last year * presumably due to HTN, DM, vascular disease and age-related change (3) Acute diastolic heart failure: Code(s): I50.31 - Acute diastolic (congestive) heart failure Status: Acute Assessment and Plan: * Cardiology following * gradually improving with fluid removal. (4) Acute hypoxemic respiratory failure: Code(s): J96.01 - Acute respiratory failure with hypoxia Status: Acute Assessment and Plan: * resolving if not improved with current interventions * follow respiratory status (5) Benign essential hypertension: Code(s): I10 - Essential (primary) hypertension Status: Chronic Assessment and Plan: * now with issues related to relative hypotension * wean midodrine with the intent of stopping midodrine except for using with dialysis if needed * follow hemodynamics (6) Erythropoietin deficiency anemia: Code(s): D63.1 - Anemia in chronic kidney disease Status: Acute Assessment and Plan: * due to KALEB, CKD, and acute illness * continue Epogen with HD * follow trend of H/H (7) DM type 2 (diabetes mellitus, type 2): Qualifiers: Diabetes mellitus longterm insulin use: without longterm use Diabetes mellitus complication status: with kidney complications Diabetes mellitus complication detail: with chronic kidney disease Chronic kidney disease stage: stage 3 (moderate) Qualified Code(s): E11.22 - Type 2 diabetes mellitus with diabetic chronic kidney disease; N18.3 - Chronic kidney disease, stage 3 (moderate) Code(s): E11.9 - Type 2 diabetes mellitus without complications Status: Chronic Assessment and Plan: * follow Accu-Cheks * on sliding scale insulin Will continue to follow. Subjective Date/time seen: 04/07/22 14:26 Chart reviewed since last seen - assuming care from Dr. Hdz; breathing/respiratory status has significantly improved with aggressive ultrafiltration/fluid removal with initiation of dialysis; no apparent distress voiced at the time of my visit; noted issues with hypotension which is limiting participation with PT/OT. Exam Narrative: General: elderly female in NAD Heart: normal S1 and S2; no rub or gallop Lungs: coarse breath sounds at the bases. Abdomen: soft, nontender, nondistended, positive bowel sounds Extremities: trace to 1+ edema Skin: warm and dry Objective Data Vital Signs Vital Signs:
--- NOTE | 2022-04-07 14:26 | PM.PNNEP ---
Progress Note: A&P Assessment and Plan (1) KALEB (acute kidney injury): Code(s): N17.9 - Acute kidney failure, unspecified Status: Acute Assessment and Plan: etiology not entirely clear evaluation to date: renal ultrasound without any acute issues UA with some white and red blood cells -- culture negative to date urine electrolytes non-prenal (but done when on diuretics) urine eosinophils negative CPK normal serologies noted - normal C3, C4, ANCA, antiGBM-Ab; positive TEOFILO but negative dsDNA-Ab possibly progression of renal disease - unmasked by treatment of volume overload(?) plan HD tomorrow suspect with need HD on discharge as well (2) Chronic kidney disease, stage IV (severe): Code(s): N18.4 - Chronic kidney disease, stage 4 (severe) Status: Chronic Assessment and Plan: baseline creatinine seems to run around 2.1 - 2.6mg/dl in the last year presumably due to HTN, DM, vascular disease and age-related change (3) Acute diastolic heart failure: Code(s): I50.31 - Acute diastolic (congestive) heart failure Status: Acute Assessment and Plan: Cardiology following gradually improving with fluid removal. (4) Acute hypoxemic respiratory failure: Code(s): J96.01 - Acute respiratory failure with hypoxia Status: Acute Assessment and Plan: resolving if not improved with current interventions follow respiratory status (5) Benign essential hypertension: Code(s): I10 - Essential (primary) hypertension Status: Chronic Assessment and Plan: now with issues related to relative hypotension wean midodrine with the intent of stopping midodrine except for using with dialysis if needed follow hemodynamics (6) Erythropoietin deficiency anemia: Code(s): D63.1 - Anemia in chronic kidney disease Status: Acute Assessment and Plan: due to KALEB, CKD, and acute illness continue Epogen with HD follow trend of H/H (7) DM type 2 (diabetes mellitus, type 2): Qualifiers: Diabetes mellitus skilled nursing insulin use: without terminal clerk use Diabetes mellitus complication status: with kidney complications Diabetes mellitus complication detail: with chronic kidney disease Chronic kidney disease stage: stage 3 (moderate) Qualified Code(s): E11.22 - Type 2 diabetes mellitus with diabetic chronic kidney disease; N18.3 - Chronic kidney disease, stage 3 (moderate) Code(s): E11.9 - Type 2 diabetes mellitus without complications Status: Chronic Assessment and Plan: follow Accu-Cheks on sliding scale insulin Will continue to follow. Subjective Date/time seen: 04/07/22 14:26 Chart reviewed since last seen - assuming care from Dr. Hdz; breathing/respiratory status has significantly improved with aggressive ultrafiltration/fluid removal with initiation of dialysis; no apparent distress voiced at the time of my visit; noted issues with hypotension which is limiting participation with PT/OT. Exam Narrative: General: elderly female in NAD Heart: normal S1 and S2; no rub or gallop Lungs: coarse breath sounds at the bases. Abdomen: soft, nontender, nondistended, positive bowel sounds Extremities: trace to 1+ edema Skin: warm and dry Objective Data Vital Signs Vital Signs: Vital Signs Temp Pulse Resp BP Pulse Ox O2 Del Method O2 Flow Rate 04/07/22 14:00 36.6 C 94 16 130/55 L 94 04/07/22 14:34 97 20 04/07/22 14:26 94 20 04/07/22 14:07 Nasal Cannula 2 04/07/22 08:25 36.6 C 104 H 20 141/59 H 93 04/07/22 08:17 98 20 04/07/22 08:10 102 H 20 94 Nasal Cannula 2 04/07/22 08:07 102 H 20 04/07/22 07:32 BiPAP 04/07/22 06:00 36.1 C L 97 20 105/43 L 98 04/07/22 02:07 94 20 04/07/22 01:58 96 20 04/06/22 22:00 36.4 C 88 16 116/42 L 94 04/06/22 22:16 79 28 H 97
--- NOTE | 2022-04-07 15:07 | PM.IMPN ---
Progress Note: A&P Assessment and Plan (1) Acute congestive heart failure: Code(s): I50.9 - Heart failure, unspecified Status: Acute Assessment and Plan: Continue diuresis Echo noted. does have some diastolic dysfunction. Left ventricular ejection fraction looks to be preserved. Appreciate Cardiology input and Continue hemodialysis 04/02/2022 interval history: moderately obese patient presented with shortness of breath found to have diastolic congestive heart failure and volume overload seen by Nephrology patient is being diuresed but needs dialysis to remove the excess fluid dialysis was started on 03/29, patient remains short of breath dyspnea ABG showed hypercapnia and patient was placed on BiPAP which did improve her symptoms and patient will have dialysis this morning in her room and will continue to monitor, will be seen by drawing in machine tender further recommendation to follow 04/03/2022 interval history: moderately obese patient presented with shortness of breath found to have diastolic congestive heart failure and volume overload seen by Nephrology patient is being diuresed but needs dialysis to remove the excess fluid dialysis was started on 03/29, on 04/02 patient remained short of breath dyspnea ABG showed hypercapnia and patient was placed on BiPAP which did improve her symptoms and patient had dialysis, today patient states feeling much better compared to yesterday and again today patient will have dialysis currently patient on BiPAP will continue to monitor and wean the patient off BiPAP. 04/04/2022 interval history: moderately obese patient presented with shortness of breath found to have diastolic congestive heart failure and volume overload seen by Nephrology patient is being diuresed but needs dialysis to remove the excess fluid dialysis was started on 03/29, on 04/02 patient remained short of breath dyspnea ABG showed hypercapnia and patient was placed on BiPAP which did improve her symptoms and patient had dialysis and again on 04/03 , today patient states feeling much better compared to yesterday, she wore her BIPAP last night, and currently on 8L NC stats feeling better, will CPM, patient will be seen by her drawing in machine tender and further recommendation to follow. 04/05/2022 interval history: moderately obese patient presented with shortness of breath found to have diastolic congestive heart failure and volume overload seen by Nephrology patient is being diuresed but needs dialysis to remove the excess fluid dialysis was started on 03/29, on 04/02 patient remained short of breath dyspnea ABG showed hypercapnia and patient was placed on BiPAP which did improve her symptoms and patient had dialysis and again on 04/03, today patient states feeling much better compared to yesterday, she wore her BIPAP last night, and currently on 6L NC compare to 8L NC on 04/04, stats feeling better, will CPM, patient was seen by her drawing in machine tender and will have a hemodialysis today, will continue to wean patient off oxygen, and further recommendation to follow. 04/06/2022 interval history: moderately obese patient presented with shortness of breath found to have diastolic congestive heart failure and volume overload seen by Nephrology patient is being diuresed but needs dialysis to remove the excess fluid dialysis was started on 03/29, on 04/02 patient remained short of breath dyspnea ABG showed hypercapnia and patient was placed on BiPAP which did improve her symptoms and patient had dialysis and again on 04/03, and on 04/05, patient states feeling much better compared to yesterday, she did leyva her BIPAP last night, and currently on 2-4 L NC compare to 8L NC on 04/04, stats feeling better, will CPM, patient was seen by her drawing in machine tender and will not have a hemodialysis today as patient has hypotensive and midodrine is resume and 5 mg t.i.d., will continue to wean patient off oxygen, patient will benefit going to rehab and further recommendation to follow.
[2022-04-07 17:08] LABS: Glucose Point of Care 195 mg/dl (65-105)
[2022-04-07] MEDS: traZODone HCL 50 MG TABLET 100 MG PO (20:17)
[2022-04-07 21:03] LABS: Glucose Point of Care 187 mg/dl (65-105)
[2022-04-08] VITALS (18 sets, daily range): BP systolic 117–154; BP diastolic 46–64; PULSE 78–96; RESP 16–31; TEMP 36–36.8; O2SAT 91–94
[2022-04-08] MEDS: ALBUTEROL SULFATE NEB 2.5 MG/3 ML INH 5 MG INHALATION ×3 (02:10→14:17)
[2022-04-08 06:02] LABS: Hematocrit 29.3 % (37.0-47.0); Hemoglobin 8.9 g/dL (12.0-15.0); Mean Corpuscular HGB Conc 30.4 g/dl (32-36); Mean Corpuscular Hemoglobin 30.5 pg (26-34); Mean Corpuscular Volume 100.3 fl (80-100); Mean Platelet Volume 9.2 fl (7.4-10.4); Platelet Count Result 115 k/mm3 (150-375); Red Blood Count 2.92 M/mm3 (4.2-5.4); Red Cell Distribution Width 15.9 % (11.5-14.5); White Blood Count 14.5 K/mm3 (4.5-10.0)
[2022-04-08 06:19] LABS: Albumin Level 2.7 g/dL (3.5-5.1); Anion Gap 4 mmol/L (8-16); Blood Urea Nitrogen 36 mg/dL (7-17); Calcium 7.7 mg/dL (8.4-10.2); Carbon Dioxide 33 mmol/L (22-30); Chloride 93 mmol/L (98-107); Estimated CRCL calculation 10 ml/min; Estimated Glomerular Filt Rate 9; Glucose 130 mg/dL (65-110); Phosphorus 3.7 mg/dL (2.5-4.5); Potassium 4.1 mmol/L (3.4-5.0); Sodium 130 mmol/L (137-145)
[2022-04-08] MEDS: LEVOTHYROXINE SODIUM 125 MCG TABLET PO (07:35)
[2022-04-08 07:44] LABS: Glucose Point of Care 152 mg/dl (65-105)
[2022-04-08] MEDS: SODIUM CHLORIDE 0.9% IV 1,000 ML 999 ML IV CONT (08:00)
[2022-04-08] MEDS: BUMETANIDE INJ 1 MG/4 ML VIAL IV PUSH (08:03)
[2022-04-08] MEDS: LIDOCAINE 5% PATCH 1 PATCH TRANSDERM (08:04)
[2022-04-08] MEDS: MIDODRINE HCL 2.5 MG TABLET 5 MG PO ×2 (08:05→12:28)
[2022-04-08] MEDS: ROSUVASTATIN 10 MG TABLET 20 MG PO (08:05)
[2022-04-08] MEDS: VITAMIN B COMPLEX/VIT C CAPSULE 1 EACH PO (08:06)
[2022-04-08] MEDS: MULTIVITAMINS THERAPEUTIC TAB (*BKC) 1 TABLET PO (08:06)
[2022-04-08] MEDS: PYRIDOSTIGMINE BROMIDE 60 MG TABLET PO (08:06)
[2022-04-08] MEDS: LORATADINE 10 MG TABLET PO (08:06)
[2022-04-08] MEDS: CALCIUM CARBONATE (OSCAL) 500 MG TABLET PO (08:06)
[2022-04-08] MEDS: FOLIC ACID 0.4 MG TABLET 0.8 MG PO (08:06)
[2022-04-08] MEDS: dilTIAZem HCL CD 180 MG CAP.ER.24H PO (08:06)
[2022-04-08] MEDS: CYANOCOBALAMIN 1,000 MCG TABLET 1000 MCG PO (08:06)
[2022-04-08] MEDS: CHOLECALCIFEROL 1,000 UNITS TABLET 2000 UNITS PO (08:06)
[2022-04-08] MEDS: EPOETIN ALFA-EPBX 10,000 UNITS/ML VIAL 10000 UNITS IV PUSH (09:07)
--- NOTE | 2022-04-08 09:35 | PCOTNOTE ---
Patient out for dialysis, will continue OT per plan of care.
--- NOTE | 2022-04-08 10:31 | P.PNNP_ITS ---
Progress Note: A&P Assessment and Plan (1) KALEB (acute kidney injury): Code(s): N17.9 - Acute kidney failure, unspecified Status: Acute Assessment and Plan: * etiology not entirely clear * evaluation to date: * renal ultrasound without any acute issues * UA with some white and red blood cells -- culture negative to date * urine electrolytes non-prenal (but done when on diuretics) * urine eosinophils negative * CPK normal * serologies noted - normal C3, C4, ANCA, antiGBM-Ab; positive TEOFILO but negative dsDNA-Ab * possibly progression of renal disease - unmasked by treatment of volume overload(?) * HD today and continue T/T/S schedule for now * suspect with need HD on discharge as well (2) Chronic kidney disease, stage IV (severe): Code(s): N18.4 - Chronic kidney disease, stage 4 (severe) Status: Chronic Assessment and Plan: * baseline creatinine seems to run around 2.1 - 2.6mg/dl in the last year * presumably due to HTN, DM, vascular disease and age-related change (3) Acute diastolic heart failure: Code(s): I50.31 - Acute diastolic (congestive) heart failure Status: Acute Assessment and Plan: * Cardiology following * gradually improving with fluid removal. (4) Acute hypoxemic respiratory failure: Code(s): J96.01 - Acute respiratory failure with hypoxia Status: Acute Assessment and Plan: * resolving if not improved with current interventions * follow respiratory status (5) Benign essential hypertension: Code(s): I10 - Essential (primary) hypertension Status: Chronic Assessment and Plan: * now with issues related to relative hypotension * wean midodrine with the intent of stopping midodrine except for using with dialysis if needed * follow hemodynamics (6) Erythropoietin deficiency anemia: Code(s): D63.1 - Anemia in chronic kidney disease Status: Acute Assessment and Plan: * due to KALEB, CKD, and acute illness * continue Epogen with HD * follow trend of H/H (7) DM type 2 (diabetes mellitus, type 2): Qualifiers: Chronic kidney disease stage: stage 3 (moderate) Diabetes mellitus complication detail: with chronic kidney disease Diabetes mellitus complication status: with kidney complications Diabetes mellitus intermediate insulin use: without home care provider use Qualified Code(s): E11.22 - Type 2 diabetes mellitus with diabetic chronic kidney disease; N18.3 - Chronic kidney disease, stage 3 (moderate) Code(s): E11.9 - Type 2 diabetes mellitus without complications Status: Chronic Assessment and Plan: * follow Accu-Cheks * on sliding scale insulin Will continue to follow. Subjective Date/time seen: 04/08/22 10:31 Tolerating hemodialysis treatment at the time of my visit (seen on HD at 10:15AM); respiratory status seems relatively stable if not better currently; no other acute issues/complaints voiced; no events overnight or earlier this AM. Exam Narrative: General: elderly female in NAD Heart: normal S1 and S2; no rub or gallop Lungs: coarse breath sounds at the bases. Abdomen: soft, nontender, nondistended, positive bowel sounds Extremities: trace to 1+ edema Skin: warm and intact Objective Data Vital Signs Vital Signs: Vital Signs
--- NOTE | 2022-04-08 10:31 | PM.PNNEP ---
Progress Note: A&P Assessment and Plan (1) KALEB (acute kidney injury): Code(s): N17.9 - Acute kidney failure, unspecified Status: Acute Assessment and Plan: etiology not entirely clear evaluation to date: renal ultrasound without any acute issues UA with some white and red blood cells -- culture negative to date urine electrolytes non-prenal (but done when on diuretics) urine eosinophils negative CPK normal serologies noted - normal C3, C4, ANCA, antiGBM-Ab; positive TEOFILO but negative dsDNA-Ab possibly progression of renal disease - unmasked by treatment of volume overload(?) HD today and continue T/T/S schedule for now suspect with need HD on discharge as well (2) Chronic kidney disease, stage IV (severe): Code(s): N18.4 - Chronic kidney disease, stage 4 (severe) Status: Chronic Assessment and Plan: baseline creatinine seems to run around 2.1 - 2.6mg/dl in the last year presumably due to HTN, DM, vascular disease and age-related change (3) Acute diastolic heart failure: Code(s): I50.31 - Acute diastolic (congestive) heart failure Status: Acute Assessment and Plan: Cardiology following gradually improving with fluid removal. (4) Acute hypoxemic respiratory failure: Code(s): J96.01 - Acute respiratory failure with hypoxia Status: Acute Assessment and Plan: resolving if not improved with current interventions follow respiratory status (5) Benign essential hypertension: Code(s): I10 - Essential (primary) hypertension Status: Chronic Assessment and Plan: now with issues related to relative hypotension wean midodrine with the intent of stopping midodrine except for using with dialysis if needed follow hemodynamics (6) Erythropoietin deficiency anemia: Code(s): D63.1 - Anemia in chronic kidney disease Status: Acute Assessment and Plan: due to KALEB, CKD, and acute illness continue Epogen with HD follow trend of H/H (7) DM type 2 (diabetes mellitus, type 2): Qualifiers: Chronic kidney disease stage: stage 3 (moderate) Diabetes mellitus complication detail: with chronic kidney disease Diabetes mellitus complication status: with kidney complications Diabetes mellitus longterm insulin use: without longterm use Qualified Code(s): E11.22 - Type 2 diabetes mellitus with diabetic chronic kidney disease; N18.3 - Chronic kidney disease, stage 3 (moderate) Code(s): E11.9 - Type 2 diabetes mellitus without complications Status: Chronic Assessment and Plan: follow Accu-Cheks on sliding scale insulin Will continue to follow. Subjective Date/time seen: 04/08/22 10:31 Tolerating hemodialysis treatment at the time of my visit (seen on HD at 10:15AM); respiratory status seems relatively stable if not better currently; no other acute issues/complaints voiced; no events overnight or earlier this AM. Exam Narrative: General: elderly female in NAD Heart: normal S1 and S2; no rub or gallop Lungs: coarse breath sounds at the bases. Abdomen: soft, nontender, nondistended, positive bowel sounds Extremities: trace to 1+ edema Skin: warm and intact Objective Data Vital Signs Vital Signs: Vital Signs Temp Pulse Resp BP Pulse Ox O2 Del Method O2 Flow Rate 04/08/22 09:30 82 133/62 04/08/22 09:00 88 137/56 L 04/08/22 08:30 94 147/58 H 04/08/22 08:25 36.6 C 96 16 154/64 H 04/08/22 08:25 2 04/08/22 08:55 80 28 H 04/08/22 08:43 85 28 H 04/08/22 08:43 91 High Flow Nasal Cannula 3 04/08/22 07:36 BiPAP 04/08/22 06:00 36.6 C 92 16 123/46 L 93 04/08/22 02:22 80 24 H 04/08/22 02:10 88 24 H 04/08/22 02:01 92 28 H 132/46 L 94 04/08/22 00:30 94 31 H 93 BiPAP 04/07/22 22:00 36.2 C L 80 18 142/48 H 96 04/07/22 20:00 93 Na
[2022-04-08 12:34] LABS: Glucose Point of Care 145 mg/dl (65-105)
--- NOTE | 2022-04-08 13:44 | PCOTNOTE ---
Attempted to see patient, patient declined secondary to feeling rough post dialysis. Will continue plan of care.
[2022-04-08 15:19] LABS: Hematocrit 32.8 % (37.0-47.0); Hemoglobin 9.6 g/dL (12.0-15.0); Immature Platelet Fraction Pct 2.4 % (0.9-11.2); Mean Corpuscular HGB Conc 29.3 g/dl (32-36); Mean Corpuscular Volume 102.5 fl (80-100); Mean Platelet Volume 9.2 fl (7.4-10.4); Platelet Count Result 135 k/mm3 (150-375); Red Cell Distribution Width 15.9 % (11.5-14.5); White Blood Count 16.9 K/mm3 (4.5-10.0)
--- NOTE | 2022-04-08 15:48 | PM.DS ---
DS: Admitting Diagnosis Discharge Date 04/08/2022 Admitting Diagnosis shortness of breath DS: Discharge Diagnosis Discharge Diagnosis (1) Acute congestive heart failure: Code(s): I50.9 - Heart failure, unspecified Status: Acute Assessment and Plan: Continue diuresis Echo noted. does have some diastolic dysfunction. Left ventricular ejection fraction looks to be preserved. Appreciate Cardiology input and Continue hemodialysis 04/02/2022 interval history: moderately obese patient presented with shortness of breath found to have diastolic congestive heart failure and volume overload seen by Nephrology patient is being diuresed but needs dialysis to remove the excess fluid dialysis was started on 03/29, patient remains short of breath dyspnea ABG showed hypercapnia and patient was placed on BiPAP which did improve her symptoms and patient will have dialysis this morning in her room and will continue to monitor, will be seen by well head pumper further recommendation to follow 04/03/2022 interval history: moderately obese patient presented with shortness of breath found to have diastolic congestive heart failure and volume overload seen by Nephrology patient is being diuresed but needs dialysis to remove the excess fluid dialysis was started on 03/29, on 04/02 patient remained short of breath dyspnea ABG showed hypercapnia and patient was placed on BiPAP which did improve her symptoms and patient had dialysis, today patient states feeling much better compared to yesterday and again today patient will have dialysis currently patient on BiPAP will continue to monitor and wean the patient off BiPAP. 04/04/2022 interval history: moderately obese patient presented with shortness of breath found to have diastolic congestive heart failure and volume overload seen by Nephrology patient is being diuresed but needs dialysis to remove the excess fluid dialysis was started on 03/29, on 04/02 patient remained short of breath dyspnea ABG showed hypercapnia and patient was placed on BiPAP which did improve her symptoms and patient had dialysis and again on 04/03 , today patient states feeling much better compared to yesterday, she wore her BIPAP last night, and currently on 8L NC stats feeling better, will CPM, patient will be seen by her well head pumper and further recommendation to follow. 04/05/2022 interval history: moderately obese patient presented with shortness of breath found to have diastolic congestive heart failure and volume overload seen by Nephrology patient is being diuresed but needs dialysis to remove the excess fluid dialysis was started on 03/29, on 04/02 patient remained short of breath dyspnea ABG showed hypercapnia and patient was placed on BiPAP which did improve her symptoms and patient had dialysis and again on 04/03, today patient states feeling much better compared to yesterday, she wore her BIPAP last night, and currently on 6L NC compare to 8L NC on 04/04, stats feeling better, will CPM, patient was seen by her well head pumper and will have a hemodialysis today, will continue to wean patient off oxygen, and further recommendation to follow. 04/06/2022 interval history: moderately obese patient presented with shortness of breath found to have diastolic congestive heart failure and volume overload seen by Nephrology patient is being diuresed but needs dialysis to remove the excess fluid dialysis was started on 03/29, on 04/02 patient remained short of breath dyspnea ABG showed hypercapnia and patient was placed on BiPAP which did improve her symptoms and patient had dialysis and again on 04/03, and on 04/05, patient states feeling much better compared to yesterday, she did leyva her BIPAP last night, and currently on 2-4 L NC compare to 8L NC on 04/04, stats feeling better, will CPM, patient was seen by her well head pumper and will not have a hemodialysis today as patient has hypotensive and midodrine is resume and 5 mg t.i.d., will continue
[2022-04-08 16:23] LABS: Glucose Point of Care 165 mg/dl (65-105)
[2022-04-08 16:40] LABS: EDCOVIDSCREEN Negative (Negative)
== END 2022-04-08 17:50 | DRG 291 ==
LOC: ANHED 22:19 → ANHIMU 23:06 → ANH2MED 04-08 15:48 → ANHIMU 04-09 09:52
PROVIDERS: Chiropractor; Internal Medicine Cardiovascular Disease; Internal Medicine Nephrology; Surgery; Admitting Provider Internal Medicine; Emergency Provider Emergency Medicine; PCP Internal Medicine; Visit Provider Family Medicine
PROC: 0JH63XZ Insertion of Tunneled Vascular Access Device into Chest Subcutaneous Tissue and Fascia, Percutaneous Approach (ICD-10-PCS; CPT 36908; principal; 2022-04-01 14:00)
DX: I13.0 Hypertensive heart and chronic kidney disease with heart failure and stage 1 through stage 4 chronic kidney disease, or unspecified chronic kidney disease (principal); I50.31 Acute diastolic (congestive) heart failure; J96.01 Acute respiratory failure with hypoxia; N17.9 Acute kidney failure, unspecified; J44.1 Chronic obstructive pulmonary disease with (acute) exacerbation; N18.4 Chronic kidney disease, stage 4 (severe); Z20.822 Contact with and (suspected) exposure to COVID-19; E11.22 Type 2 diabetes mellitus with diabetic chronic kidney disease; M06.9 Rheumatoid arthritis, unspecified; J45.909 Unspecified asthma, uncomplicated; E78.5 Hyperlipidemia, unspecified; E03.9 Hypothyroidism, unspecified; E66.01 Morbid (severe) obesity due to excess calories; Z99.81 Dependence on supplemental oxygen; C67.9 Malignant neoplasm of bladder, unspecified; E87.5 Hyperkalemia; D63.1 Anemia in chronic kidney disease; Z87.891 Personal history of nicotine dependence; Z86.718 Personal history of other venous thrombosis and embolism; Z92.21 Personal history of antineoplastic chemotherapy; Z79.899 Other long term (current) drug therapy
CPT/HCPCS: 36415; 36430; 36600; 51702; 71045; 76775; 76937; 77001; 80048; 80053; 80069; 81001; 81050; 82436; 82550; 82570; 82805; 82948; 83520; 83880; 83883; 84155; 84156; 84165; 84166; 84300; 85014; 85018; 85025; 85027; 85055; 85999; 86036; 86038; 86039; 86160; 86225; 86704; 86706; 86803; 86850; 86900; 86901; 86920; 87086; 87340; 87426; 93005; 93306; 93970; 94002; 94003; 94640; 96374; 97161; 97165; 97530; 97535; 99285; A9270; C1750; C1752; C9803; G0257; G0378; J1644; J1815; J1940; J2704; J3370; J7030; J7040; P9016; P9047; Q5105; U0003; U0005

== ENCOUNTER 2022-04-09 22:59 | Emergency (ER) | payer MEDICARE, BC, SELFPAY ==
--- NOTE | ~2022-04-09 | XR_ITS ---
EXAMINATION: XR chest ET placement DATE: 04/09/2022 23:23 INDICATION: Intubated. TECHNIQUE: A single frontal view of the chest was obtained. COMPARISON: Chest single view 04/08/2022, CT abdomen and pelvis 03/06/2022 FINDINGS: There are innumerable nodules in the lungs. There are airspace opacities at the lung bases. There is a small left pleural effusion. No pneumothorax. The heart size is normal. The endotracheal tube tip is 6.1 cm above the roberto carlos. A right internal jugular central venous catheter is seen with ti p at the superior cavoatrial junction. There are old healed left rib fractures. IMPRESSION: 1. Innumerable nodules in the lungs, consistent with metastatic disease. 2. Airspace opacities at the lung bases, consistent with atelectasis versus pneumonia. 3. Stable small left pleural effusion. Reviewed, dictated and finalized at location A. IMPRESSION: 1. Innumerable nodules in the lungs, consistent with metastatic disease. 2. Airspace opacities at the lung bases, consistent with atelectasis versus pne umonia. 3. Stable small left pleural effusion.
[2022-04-09 23:17] VITALS: PULSE 66; O2SAT 99
[2022-04-09] MEDS: SODIUM CHLORIDE 0.9% IV 1,000 ML 999 ML IV CONT (23:35)
[2022-04-09 23:51] LABS: Appearance Urine Slightly Cloudy (Clear); Bilirubin Urine Negative (Negative); Blood Urine 2+ (Negative); Color Urine Yellow (Yellow); Glucose Urine UA Negative (Negative); Ketones Urine Negative (Negative); Leukocyte Esterase Ur 3+ LEU/UL (Negative); Nitrate Urine Negative (Negative); Protein Urine 3+ mg/dL (Negative); Urobilinogen Urine 0.2 mg/dL (<2.0)
[2022-04-09 23:53] VITALS: BP 70/41; PULSE 77; RESP 15; TEMP 36.2; O2SAT 96
[2022-04-09 23:53] LABS: Alveolar/Arterial O2 Gradient 377.4 mmHg; Base Excess ABG -10.8 mEq/l (+/-2.0); Fractional Inspired Oxygen 100 %; HCO3 ABG 18.7 mEq/l (22.0-26.0); Oxygen Content ABG 13.1 %vol (16.0-22.0); Oxygen Saturation ABG 99.4 % (95.0-100.0); Oxyhemoglobin 98.2 % THb (90.0-100.0); PO2 ABG 272.9 mmHg (80.0-100.0); PO2 FiO2 Ratio Arterial Blood 2.73 %
[2022-04-09 23:54] LABS: Alanine Aminotransferase 154 U/L (6-35); Albumin Level 2.7 g/dL (3.5-5.1); Alkaline Phosphatase 60 U/L (38-126); Anion Gap 6 mmol/L (8-16); Aspartate Amino Transferase 259 U/L (14-36); Bilirubin,Total 0.3 mg/dL (0.2-1.3); Blood Urea Nitrogen 21 mg/dL (7-17); Calcium 8.5 mg/dL (8.4-10.2); Carbon Dioxide 24 mmol/L (22-30); Chloride 99 mmol/L (98-107); Estimated Glomerular Filt Rate 15; Glucose 249 mg/dL (65-110); Hematocrit 30.6 % (37.0-47.0); Hemoglobin 8.7 g/dL (12.0-15.0); INR 1.5; Lipase 447 U/L (23-300); Mean Corpuscular HGB Conc 28.4 g/dl (32-36); Mean Corpuscular Hemoglobin 30.2 pg (26-34); Mean Corpuscular Volume 106.3 fl (80-100); Mean Platelet Volume 9.9 fl (7.4-10.4); Platelet Count Result 141 k/mm3 (150-375); Potassium 5.7 mmol/L (3.4-5.0); Prothrombin Time 17.1 Seconds (11.1-14.7); Red Blood Count 2.88 M/mm3 (4.2-5.4); Red Cell Distribution Width 16.1 % (11.5-14.5); Sodium 129 mmol/L (137-145); White Blood Count 16.8 K/mm3 (4.5-10.0)
[2022-04-09 23:54] LABS: Modified Allen's Test Pass; PCO2 ABG 62.7 mmHg (35.0-45.0); Site Drawn RIGHT RADIAL; pH ABG 7.093 (7.350-7.450)
[2022-04-09 23:55] LABS: Partial Thromboplastin Time 36.9 SECONDS (22.3-36.8)
[2022-04-09 23:55] LABS: Arterial Blood Gas PEEP 5 cmH2O; Arterial Blood Gas Tidal Volume 350 ml; Arterial Blood Gas Vent Mode CMV; Arterial Blood Gas Ventilator rate 16 /MIN; Device VENTILATOR
[2022-04-09 23:56] LABS: Bacteria Urine 1+ /hpf; Mucus Urine Few /lpf; RBC Urine 51-75 /hpf (0-2); WBC Clumps Urine Present /HPF; WBC Urine >75 /hpf
[2022-04-09 23:57] LABS: Add Urine Microscopic? YES
[2022-04-10] VITALS (11 sets, daily range): BP systolic 56–62; BP diastolic 39–44; PULSE 0–77; RESP 0–18; O2SAT 0–100
[2022-04-10 00:10] LABS: Amphetamine Screen Urine Negative (Negative); Barbiturate Screen Urine Negative (Negative); Benzodiazepines Screen Urine Negative (Negative); Cannabinoid Screen Urine Negative (Negative); Cocaine Screen Urine Negative (Negative); Methadone Screen Urine Negative (Negative); Opiate Screen Urine Negative (Negative); Phencyclidine Screen Urine Negative (Negative)
[2022-04-10 00:16] LABS: Lactic Acid Reflex 5.3 mmol/L (0.7-2.0)
[2022-04-10 00:26] LABS: NT Pro B Type Natriuretic Pept 4310 pg/mL (5-100); Troponin I 0.164 ng/mL (0.000-0.034)
[2022-04-10 00:33] LABS: Band Neutrophils Percent 8 % (0-6); Monocytes Absolute Manual 0.33 K/mm3 (0.1-0.90); Monocytes Percent Manual 2 % (3-9); Myelocytes Percent 1 %; Neutrophils Absolute Manual 15.79 K/mm3 (1.7-7.2); Neutrophils Percent Manual 86 % (46-73); Nucleated Red Blood Cells 10 %; Platelet Estimate Adequate (Adequate); Total Cells Counted 100
[2022-04-10 00:34] LABS: Macrocytosis 2+ (NORMAL)
[2022-04-10 00:35] LABS: Anisocytosis 1+ (NORMAL)
[2022-04-10 00:36] LABS: Crenated RBC 1+ (NORMAL)
--- NOTE | 2022-04-10 00:54 | ECG_ITS ---
Measurements Intervals [place] Rate: 70 P: 77 GA: 145 QRS: 91 QRSD: 109 T: 66 QT: 364 QTc: 393 Interpretive Statements SINUS RHYTHM WITH SINUS ARRHYTHMIA POSSIBLE LEFT ATRIAL ENLARGEMENT DELAYED PRECORDIAL R/S TRANSITION BORDERLINE ST-T WAVE ABNORMALITY- ANTERIOR LEADS BORDERLINE ECG Electronically Signed On 04-10-2022 9:22:35 CDT by Alvarez Gaytan D.O.
--- NOTE | 2022-04-10 01:03 | ED.CHESTPAIN ---
HPI - Chest Pain General Chief Complaint: Cardiac Arrest/CPR Stated Complaint: full arrest intubated Time Seen by Provider: 04/09/22 23:27 History of Present Illness HPI narrative: Patient is an 81-year-old female who presents ER after cardiac arrest. Patient discharged yesterday from the hospital and has recently been started dialysis. She received dialysis today. Patient received her evening dinner and pills. Patient was then found unresponsive after several hours of having not been checked on. CPR was begun. Patient had 25 minutes of CPR and EMS noticed return of spontaneous circulation. Patient was intubated in the field. In route patient had loss of pulses again and received epinephrine and then had subsequent return of spontaneous circulation. It is unknown how long patient was pulseless and not breathing. There is no reports of hearing a fall and patient did not call out for help. Related Data Home Medications Medication Instructions Recorded Confirmed multivitamin 1 tablet PO DAILY 03/28/20 03/27/22 calcium carbonate 500 mg calcium 500 mg PO DAILY 05/02/20 03/27/22 (1,250 mg) capsule cyanocobalamin (vitamin B-12) 1,000 mcg PO DAILY 09/18/20 03/27/22 1,000 mcg tablet folic acid 800 mcg tablet 0.8 mg PO BID 09/18/20 03/27/22 cholecalciferol (vitamin D3) 25 50 mcg PO DAILY 07/23/21 03/27/22 mcg (1,000 unit) tablet fexofenadine 180 mg tablet 180 mg PO DAILY 07/29/21 03/27/22 iron-vitamin B complex with C 1 tablet PO DAILY 12/23/21 03/27/22 tablet diltiazem HCl 180 mg 1 cap PO DAILY 03/06/22 03/27/22 capsule,extended release 24 hr levothyroxine 125 mcg tablet 1 tablet PO DAILY 03/06/22 03/27/22 pioglitazone 15 mg tablet 2 tablet PO DAILY 03/06/22 03/27/22 sitagliptin 50 mg tablet (Januvia) 1 tablet PO DAILY 03/06/22 03/27/22 trazodone 50 mg tablet 2 tablet PO HS 03/06/22 03/27/22 furosemide 20 mg tablet 20 mg PO DAILY 03/27/22 03/27/22 lidocaine 4 % topical patch 1 patch topical DAILY 06/30/22 06/30/22 (Blue-Emu Lidocaine Patch) sodium chloride 0.65 % nasal spray 1 spray intranasal Q4H PRN 03/27/22 03/27/22 aerosol (Deep Sea Nasal) Congestion Allergies Allergy/AdvReac Type Severity Reaction Status Date / Time iohexol Allergy Intermediate Itching Verified 04/01/22 14:36 Penicillins Allergy Mild Rash Verified 04/01/22 14:36 Cephalosporins Allergy Hives Verified 04/01/22 14:36 clindamycin Allergy Unknown Verified 04/01/22 14:36 doxycycline Allergy Itching Verified 04/01/22 14:36 risedronate sodium Allergy Swelling Verified 04/01/22 14:36 of the Eye rofecoxib AdvReac Headache Verified 04/01/22 14:36 Review of Systems Review of Systems: ROS unobtainable: Yes unobtainable due to medical condition PMFSH Past Medical History Medical History (Updated 04/10/22 @ 02:54 by Jaquan Marlow MD) Anemia Arthritis Asthma Back pain Benign essential hypertension Bladder cancer s/p chemoradiation therapy concluded in October 2021 Bronchitis Cataracts, bilateral Chronic back pain Chronic kidney disease, stage 3 With baseline creatinine between 1.2-1.4 Compression fracture of thoracic spine, non-traumatic COPD (chronic obstructive pulmonary disease) DM type 2 (diabetes mellitus, type 2) DVT (deep venous thrombosis) LLE Eczema Elevated homocysteine Erythropoietin deficiency anemia History of irritable bowel syndrome HTN (hypertension) Hx of colonic polyps Hyperlipidemia Hypothyroidism Left wrist fracture Lipoma Lumbar radiculopathy Melena 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
--- NOTE | 2022-04-10 01:30 | PC.NURSE ---
At this time family decided to withdraw care. EARL Rajan verbal read back order pull 12 of morphine and pull 4 of lorazepam. This RN pulled all medications per EARL Rajan order. All family in room at this time, this RN, ED Respiratory, and EDP Dr. Rajan. at 0135 we gave the first 2 of Ativan and the first 4 of morphine. All intubation tubes removed at this time as well as the NG tube. RHONDA Rajan stated that we are goign to leave any tibes in that we did not place here in the ED. At this rime the family surrounded the patient and this RN, EARL Rajan and Respiratory left the room. EDP and this RN were outside the room at this time watching the monitors. St 0140 This RN and EARL Rajan went in room because pulse was only 5 bpm. This RN and EARL rajan left room to give the family some time. At 0143 THis RN and EARL Rajan went back into room and there was no pulse on monitor, felt, or picked up by the dopler. This patient was pronounced time of at 0143.
[2022-04-10] MEDS: LORazepam INJ (*CRX) 2 MG/ML VIAL 4 MG (01:47)
[2022-04-10] MEDS: MORPHINE SULFATE (*CRX) 4 MG/ML INJ 12 MG (01:48)
--- NOTE | 2022-04-10 01:55 | PC.NURSE ---
At 0143 time of called
--- NOTE | 2022-04-10 02:25 | PC.NURSE ---
[facility] ref number: [id number]. Pt will be taken to [facility]. family will call in the morning with nsg home info. original permit will stay in ed until home info obtained
[2022-04-10 02:41] LABS: Reflex Lactic Acid Yes or No Add Lactic
--- NOTE | 2022-04-10 03:35 | PC.NURSE ---
Patient body taken down to [facility] with ED security, This RN, lizy Reddy and Rosanna
== END 2022-04-10 03:37 | disposition expired ==
PROVIDERS: Emergency Provider Emergency Medicine; PCP Internal Medicine
DX: I46.9 Cardiac arrest, cause unspecified (principal); I13.0 Hypertensive heart and chronic kidney disease with heart failure and stage 1 through stage 4 chronic kidney disease, or unspecified chronic kidney disease; N18.4 Chronic kidney disease, stage 4 (severe); I50.31 Acute diastolic (congestive) heart failure; E11.22 Type 2 diabetes mellitus with diabetic chronic kidney disease; E78.5 Hyperlipidemia, unspecified; E03.9 Hypothyroidism, unspecified; Z85.038 Personal history of other malignant neoplasm of large intestine; Z87.891 Personal history of nicotine dependence; Z86.718 Personal history of other venous thrombosis and embolism; Z79.899 Other long term (current) drug therapy
CPT/HCPCS: 36415; 36600; 80053; 80307; 81001; 82805; 83605; 83690; 83880; 84484; 85025; 85610; 85730; 87086; 87088; 93005; 96361; 96374; 96375; 99285; J0171; J2060; J2270; J7030